=== PATIENT | male | born 1960 | race American Indian/Alaskan Native ===

== ENCOUNTER 2017-04-17 12:57 | Emergency (ER) | payer MEDICARE ==
[2017-04-17 13:05] VITALS: BP 176/115
== END 2017-04-17 20:50 | disposition left against medical advice (07) ==
LOC: ED 12:57
DX: M79.673 Pain in unspecified foot (principal); Z53.21 Procedure and treatment not carried out due to patient leaving prior to being seen by health care provider

== ENCOUNTER 2019-02-01 16:20 | Inpatient (IN) | payer MEDICARE ==
--- NOTE | 2019-02-01 17:24 | Emergency Department Report ---
ED General Adult HPI - General Chief complaint: Altered Mental Status Stated complaint: WEAKNESS Time Seen by Provider: 02/01/19 17:16 Source: family, RN notes reviewed Mode of arrival: Wheelchair Limitations: Language Barrier - History of Present Illness Initial comments: This is a 58-year-old gentleman. This patient is not known to this provider previously. In the past, as per family, he has seen Dr. White, and Dr. Zuñiga her primary care. Reportedly has a history of hypertension, schizophrenia, bipolar, left-sided weakness, history of aneurysm The patient is brought to the hospital by his family for weakness and altered mental status. Most of the history is obtained from the patient's . Unfortunately, she is somewhat of a poor historian. She believes the patient was in his usual state of health yesterday, and is brought in today with a complaint of weakness, nausea vomiting, and not acting right. She is not sure when his last known well time his. First she said 5:30 PM was his last known well time, then she thought it was 5:30 in the morning, and that she thought it was 10:00 last night. She cannot give me a definitive last known well time. Apparently, the patient got up + to go to the bathroom, and may have fallen and hit his head His reports that he typically does not do a lot of walking, and typically hangs out and then and/or watches TV. 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 In the emergency room, the patient is awake and will follow some commands. He is not able to describe exacerbating or relieving factors, or qualitative nature of his symptoms. Apparently, he's been having some nausea and vomiting. -: unknown - Related Data Allergies Allergy/AdvReac Type Severity Reaction Status Date / Time No Known Allergies Allergy Unverified 04/17/17 13:03 ED Review of Systems ROS: Stated complaint: WEAKNESS Other details as noted in HPI Comment: Unobtainable due to pts medical conditions Constitutional: malaise, weakness Gastrointestinal: nausea, vomiting Neurological: weakness, confusion ED Past Medical Hx - Past Medical History Previous Medical History?: Yes Hx Hypertension: Yes Hx Psychiatric Treatment: Yes Additional medical history: schizophrenia/bipolar - Social History Smoking Status: Current Every Day Smoker Substance Use Type: None ED Physical Exam - General Limitations: Language Barrier General appearance: alert - Head Head exam: Present: atraumatic, normocephalic - Eye Eye exam: Present: normal appearance, PERRL, EOMI - ENT ENT exam: Present: normal exam, mucous membranes moist, normal external ear exam - Neck Neck exam: Present: normal inspection, full ROM. Absent: tenderness, meningismus - Respiratory Respiratory exam: Present: normal lung sounds bilaterally. Absent: respiratory distress - Cardiovascular Cardiovascular Exam: Present: normal rhythm, tachycardia, normal heart sounds. Absent: systolic murmur, diastolic murmur, rubs, gallop - GI/Abdominal GI/Abdominal exam: Present: soft. Absent: distended, tenderness, guarding, rigid, pulsatile mass - Rectal Rectal exam: Present: deferred - Extremities Exam Extremities exam: Present: normal inspection, other (2+ pulses noted in the bilateral upper, lower extremities. There is no long bone tenderness. Musculoskeletal compartments are soft. The pelvis is stable.). Absent: pedal edema, calf tenderness - Back Exam Back exam: Present: normal inspection. Absent: tenderness, CVA tenderness (R), CVA tenderness (L), paraspinal tenderness, vertebral tenderness - Neurological Exam Neurological exam: Present: altered, other (the patient is awake. Eyes open spontaneously. He does not smile on examination. He moves his right arm, right leg, left arm, left leg to command. Indicates that sensation is intact to light touch in 4 extremities. Detailed neurologic examination is not able to be completed secondary to physical weakness, altered mental status, and inability to talk.) - Skin Skin exam: Present: warm, dry, intact, normal color. Absent: rash ED Course Vital Signs 02/01/19 02/01/19 02/01/19 16:30 18:02 19:48 Temperature 98.7 F 98.8 F Pulse Rate 112 H 105 H 102 H Respiratory 18 14 Rate Blood Pressure 203/146 226/146 Blood Pressure 204/154 [Left] O2 Sat by Pulse 100 100 Oximetry - Reevaluation(s) Reevaluation #1: 02/01/19 19:50 Discussed with hospital practitioner, Rosalie Kumar, accepts the patient to the medical service. ED Medical Decision Making - Lab Data Result diagrams: 02/01/19 16:38 02/01/19 16:38 Vital Signs 02/01/19 02/01/19 16:30 18:02 Temperature 98.7 F 98.8 F Pulse Rate 112 H 105 H Respiratory 18 14 Rate Blood Pressure 203/146 Blood Pressure 204/154 [Left] O2 Sat by Pulse 100 100 Oximetry Lab Results 02/01/19 02/01/19 02/01/19 Range/Units 16:38 16:38 17:52 WBC 8.2 (4.5-11.0) K/mm3 RBC 4.22 (3.65-5.03) M/mm3 Hgb 12.1 (11.8-15.2) gm/dl Hct 36.4 (35.5-45.6) % MCV 86 (84-94) fl MCH 29 (28-32) pg MCHC 33 (32-34) % RDW 14.2 (13.2-15.2) % Plt Count 134 L (140-440) K/mm3 Lymph % (Auto) 10.0 L (13.4-35.0) % Mccreary % (Auto) 3.5 (0.0-7.3) % Eos % (Auto) 0.0 (0.0-4.3) % Baso % (Auto) 0.4 (0.0-1.8) % Lymph # 0.8 L (1.2-5.4) K/mm3 Mccreary # 0.3 (0.0-0.8) K/mm3 Eos # 0.0 (0.0-0.4) K/mm3 Baso # 0.0 (0.0-0.1) K/mm3 Seg Neutrophils % 86.1 H (40.0-70.0) % Seg Neutrophils # 7.1 (1.8-7.7) K/mm3 Sodium 144 (137-145) mmol/L Potassium 4.7 (3.6-5.0) mmol/L Chloride 107.3 H (98-107) mmol/L Carbon Dioxide 20 L (22-30) mmol/L Anion Gap 21 mmol/L BUN 58 H (9-20) mg/dL Creatinine 7.5 H (0.8-1.5) mg/dL Estimated GFR 9 ml/min BUN/Creatinine Ratio 8 % Glucose 125 H (75-100) mg/dL POC Glucose (70-105) Calcium 9.2 (8.4-10.2) mg/dL Magnesium 2.30 (1.7-2.3) mg/dL Ammonia (25-60) umol/L Total Creatine Kinase 66 (55-170) units/L TSH (0.270-4.200) mlU/mL Salicylates (2.8-20.0) mg/dL Acetaminophen (10.0-30.0) ug/mL Plasma/Serum Alcohol (0-0.07) % 02/01/19 02/01/19 02/01/19 Range/Units 17:52 17:52 17:52 WBC (4.5-11.0) K/mm3 RBC (3.65-5.03) M/mm3 Hgb (11.8-15.2) gm/dl Hct (35.5-45.6) % MCV (84-94) fl MCH (28-32) pg MCHC (32-34) % RDW (13.2-15.2) % Plt Count (140-440) K/mm3 Lymph % (Auto) (13.4-35.0) % Mccreary % (Auto) (0.0-7.3) % Eos % (Auto) (0.0-4.3) % Baso % (Auto) (0.0-1.8) % Lymph # (1.2-5.4) K/mm3 Mccreary # (0.0-0.8) K/mm3 Eos # (0.0-0.4) K/mm3 Baso # (0.0-0.1) K/mm3 Seg Neutrophils % (40.0-70.0) % Seg Neutrophils # (1.8-7.7) K/mm3 Sodium (137-145) mmol/L Potassium (3.6-5.0) mmol/L Chloride (98-107) mmol/L Carbon Dioxide (22-30) mmol/L Anion Gap mmol/L BUN (9-20) mg/dL Creatinine (0.8-1.5) mg/dL Estimated GFR ml/min BUN/Creatinine Ratio % Glucose (75-100) mg/dL POC Glucose (70-105) Calcium (8.4-10.2) mg/dL Magnesium (1.7-2.3) mg/dL Ammonia 34.0 (25-60) umol/L Total Creatine Kinase (55-170) units/L TSH 1.990 (0.270-4.200) mlU/mL Salicylates < 0.3 L (2.8-20.0) mg/dL Acetaminophen (10.0-30.0) ug/mL Plasma/Serum Alcohol (0-0.07) % 02/01/19 02/01/19 02/01/19 Range/Units 17:52 17:52 17:54 WBC (4.5-11.0) K/mm3 RBC (3.65-5.03) M/mm3 Hgb (11.8-15.2) gm/dl Hct (35.5-45.6) % MCV (84-94) fl MCH (28-32) pg MCHC (32-34) % RDW (13.2-15.2) % Plt Count (140-440) K/mm3 Lymph % (Auto) (13.4-35.0) % Mccreary % (Auto) (0.0-7.3) % Eos % (Auto) (0.0-4.3) % Baso % (Auto) (0.0-1.8) % Lymph # (1.2-5.4) K/mm3 Mccreary # (0.0-0.8) K/mm3 Eos # (0.0-0.4) K/mm3 Baso # (0.0-0.1) K/mm3 Seg Neutrophils % (40.0-70.0) % Seg Neutrophils # (1.8-7.7) K/mm3 Sodium (137-145) mmol/L Potassium (3.6-5.0) mmol/L Chloride (98-107) mmol/L Carbon Dioxide (22-30) mmol/L Anion Gap mmol/L BUN (9-20) mg/dL Creatinine (0.8-1.5) mg/dL Estimated GFR ml/min BUN/Creatinine Ratio % Glucose (75-100) mg/dL POC Glucose 97 (70-105) Calcium (8.4-10.2) mg/dL Magnesium (1.7-2.3) mg/dL Ammonia (25-60) umol/L Total Creatine Kinase (55-170) units/L TSH (0.270-4.200) mlU/mL Salicylates (2.8-20.0) mg/dL Acetaminophen < 5.0 L (10.0-30.0) ug/mL Plasma/Serum Alcohol < 0.01 (0-0.07) % - EKG Data -: EKG Interpreted by Me EKG shows normal: sinus rhythm Rate: tachycardia - EKG Data 02/01/19 19:06 There is no prior EKG available for comparison. This is a sinus tachycardia, 115 bpm, there is left ventricular hypertrophy, there is a normal axis, QTC is prolonged, there is motion artifact, EKG is abnormal, it is not consistent with a stemi - Radiology Data Radiology results: pending, report reviewed, image reviewed Noncontrast CT scan brain, cervical spine, abdomen pelvis negative for acute disease - Medical Decision Making Differential diagnosis, including but not limited to: Toxic encephalopathy, metabolic encephalopathy, subacute stroke, pneumonia, urinary tract infection, renal insufficiency, prerenal azotemia, press syndrome Assessment and plan: 58-year-old gentleman with weakness, altered mental status, his family cannot give me his definitive last known well time. He is found to be quite hypertensive, with evidence of renal insufficiency, unknown chronicity. Not a TPA candidate, given last known well time is not known, and hypertension. He is seen in consultation with stroke neurology, Dr. Tyron Boone who agrees with this decision making, and not also recommends that no emergent CT angiogram is indicated at this time, especially given renal insufficiency. Patient will be admitted to the medical service for hypertensive urgency, renal insufficiency, and acute altered mental status. Urinalysis is pending at this time. IV fluids and hydralazine ordered. Contacted nephrology on-call, Dr. Santamaria, who will follow in consultation. The patient is currently awake, follows commands, protecting his airway, there is no midline cervical spine tenderness. In addition, family communicated to examining staff that he has chronic left- sided deficit secondary to an old aneurysmal insult. Critical care attestation.: If time is entered above; I have spent that time in minutes in the direct care of this critically ill patient, excluding procedure time. ED Disposition Clinical Impression: Acute encephalopathy, Hypertensive urgency, malignant Renal failure Qualifiers: Renal failure chronicity: unspecified chronicity Qualified Code(s): N19 - Unspecified kidney failure Disposition: OP ADMIT IP TO THIS HOSP Is pt being admited?: Yes Does the pt Need Aspirin: Yes Condition: Serious
--- NOTE | 2019-02-01 17:41 | Cat Scan Report ---
NONENHANCED CT SCAN OF THE HEAD: INDICATION / CLINICAL INFORMATION: 58 years Male; AMS,HEAD INJURY R/T FALL. TECHNIQUE: Routine CT head without contrast. All CT scans at this location are performed using CT dos e reduction for ALARA by means of automated exposure control. COMPARISON: None. FINDINGS: BRAIN / INTRACRANIAL CONTENTS: Right frontal craniotomy with aneurysm clip in the right side of circl e of Marie is seen. Extraventricular drainage shunt is entering via right posterior parietal tam hole. Tip of this shunt is against septum pellucidum. Note the lateral ventricles and third ventricle are slitlike. I do not see subdural effusions. No previous imaging studies are available for comparison. Right frontal craniotomy flap is 2 mm more medially. . No recurrent subarachnoid hemorrhage, mass effect, midline shift, hydrocephalus, or acute, large te rritorial infarct. No chronic infarct or focal atrophy. Normal brain volume and ventricular/sulcal si ze for age. No significant white matter abnormality. CRANIOCERVICAL JUNCTION: No significant abnormality. ORBITS: No significant abnormality of visualized orbits. SINUSES / MASTOIDS: No significant abnormality of the visualized paranasal sinuses or mastoid air elbert ls. ADDITIONAL FINDINGS: Calcification is seen in the supraclinoid internal carotid arteries bilaterally and in the basilar artery. IMPRESSION: Any laminotomy and aneurysm clip on the right side Extraventricular drainage shunt in place Please note lateral ventricles and third ventricle are slitlike; no subdural effusion Signer Name: Geronimo Ott MD Signed: 02/01/2019 5:37 PM Workstation Name: [id number]
[2019-02-01 17:42] LABS: Basophils % (Auto) 0.4 % (0.0-1.8); Hematocrit 36.4 % (35.5-45.6); Hemoglobin 12.1 gm/dl (11.8-15.2); Lymphocytes # (Auto) 0.8 K/mm3 (1.2-5.4); Mean Corpuscular HGB Conc 33 % (32-34); Mean Corpuscular Volume 86 fl (84-94); Monocytes # (Auto) 0.3 K/mm3 (0.0-0.8); Monocytes % (Auto) 3.5 % (0.0-7.3); Platelet Count 134 K/mm3 (140-440); Red Blood Count 4.22 M/mm3 (3.65-5.03); Red Cell Distribution Width 14.2 % (13.2-15.2)
[2019-02-01] MEDS ORDERED: SODIUM CHLORIDE 0.9% 500 ML 500 ML IV ONE (17:43)
[2019-02-01 17:44] LABS: Calcium 9.2 mg/dL (8.4-10.2)
--- NOTE | 2019-02-01 17:51 | Cat Scan Report ---
CT cervical spine wo con INDICATION / CLINICAL INFORMATION: 58 years Male; fall ams cannot cleart c spine. TECHNIQUE: Axial CT images of the cervical spine were obtained. Sagittal and coronal reformatted images were pr oduced. All CT scans at this location are performed using CT dose reduction for ALARA by means of aut omated exposure control. COMPARISON: None available. FINDINGS: POST-SURGICAL CHANGES: None. ALIGNMENT: There is mild reversal the cervical lordosis. However, there is no significant spondylolis thesis. VERTEBRAE: There are multilevel degenerative endplate changes involving the cervical spine from C3-4 to C6-7. However, there is no definitive CT ends of acute fracture involving the cervical spine. The mild rotation at C1-2 is likely a positional. INTRAVERTEBRAL DISCS: The right uncovertebral and facet joint hypertrophy at C2-3 appears result in m oderate right neural foraminal narrowing at. There is marked left and moderate to right neural from n arrowing at C3-4. The spondylosis effaces the ventral subarachnoid space. The central spondylosis at C4-5 also appears to efface the ventral subarachnoid space at. More broad- based spondylosis is noted at C5-6 at. There is marked right neural foraminal narrowing. There is mar ked right and moderate left foraminal narrowing at C6-7. PARASPINAL SOFT TISSUES: No prevertebral soft tissue fluid collections are identified. There is heter ogeneous enlargement of the inferior left lobe of the thyroid gland which is nonspecific though may r eflect goiter; correlation would be needed. ADDITIONAL FINDINGS: There is a portion of a shunt catheter coursing within the superficial right nec k soft tissues at. IMPRESSION: 1. There is no CT evidence of acute fracture involving the cervical spine. 2. There are multilevel degenerative changes as detailed above. Signer Name: Kendrick North MD Signed: 02/01/2019 5:47 PM Workstation Name: [id number]
--- NOTE | 2019-02-01 17:52 | Cat Scan Report ---
CT of the abdomen and pelvis without contrast INDICATION: Nausea and vomiting COMPARISON: None FINDINGS: Lung bases are clear. The liver, spleen, pancreas and adrenal glands are all grossly normal . There are multiple low-density renal lesions which are nonspecific but may be cysts. I could not ex clude solid mass especially on the left. No definite gallbladder or biliary tree abnormality. No flui d or adenopathy in the upper abdomen. Caval filter is in place as well and is ventriculoperitoneal sh unt catheter. CT of the pelvis shows minimal cul-de-sac fluid. No diverticulosis or diverticulitis. No hernia or garcía wel obstruction. There is slight ectasia of the infrarenal aorta without focal aneurysm. Appendix is seen and is normal. No significant skeletal lesion. IMPRESSION: Indeterminant renal masses. No acute abnormality. Automated exposure control was utilized to diminish radiation dose. Signer Name: Chadwick Hinojosa MD Signed: 02/01/2019 5:48 PM Workstation Name: [id number]
[2019-02-01] MEDS ORDERED: SODIUM CHLORIDE 0.9% 1000 ML 2,000 ML IV ONE (18:03)
[2019-02-01] MEDS ORDERED: hydrALAZINE 20 MG/1 ML INJ IV ONE ×2 (19:02→20:45)
[2019-02-01] MEDS ORDERED: ASPIRIN 81 MG TAB CHEW PO ONE (19:09)
[2019-02-01] MEDS ORDERED: ONDANSETRON 4 MG/2 ML INJ IV PRN (20:23)
--- NOTE | 2019-02-01 20:44 | Consultation ---
History of Present Illness Consult date: 02/01/19 Requesting physician: HAILEY LAMB Reason for Consult: Stroke Alert Chief complaint: AMS and Nausea/Vomitting History of present illness: [facility] TeleStroke Metrics: LKW: 2200 last night Door Time: 1620 [facility] Contacted: 1743 [facility] at Bedside: 1749 NIHSS: 1757 Decision on Alteplase: Not to give as his last known well time was last night. Interventional Candidate: Not a candidate as his symptoms are not consistent with a large vessel proximal occlusion. Chief Complaint: Altered mental status and nausea/vomiting HPI: Asked to see this patient in emergent telemedicine consultation utilizing interactive audio and video technologies. Consultation was performed with assistance of ancillary / medical staff at bedside. Verbal consent to perform the examination with telemedicine was obtained. Patient agreed to proceed with the consultation for acute stroke protocol. 58-year-old right-handed -[place] male who was brought to the emergency room by his family for altered mental status and nausea and vomiting. Patient's and daughter are at bedside. reports that in 1994, the patient had what sounds like a right subarachnoid hemorrhage/intracranial hemorrhage and had right frontal craniotomy with right aneurysm clipping. He also has evidence of a right ART MODEL shunt. Since that time, he has had some chronic left-sided weakness. He has never had any seizures. Patient is still an active smoker. At baseline, the patient is able to ambulate on his own. states that she first started noticing symptoms Wednesday evening around 5 PM. When she got home, the patient had some nausea and vomiting and was not eating very well. He then went to sleep and then woke up around 10 PM. This was the last time the patient was able to ambulate on his own to the bathroom. Then around 4 AM this morning, the patient was gagging and was having nausea and vomiting again. He had a fall this morning. The patient's daughter came over. Since this morning, the patient has had intermittent episodes of nausea and vomiting which caused him to be confused and incoherent. Daughter states that he would have a glazed look over his face and sometimes would shake all over. Patient also has significant weakness to the point that he is unable to walk on his own or feed himself. states that the patient would live in this state for about 20 to 30 minutes. Then he would have moments where he was back to normal. Patient has never done this before. PMH: Hypertension, schizophrenia and bipolar disorder, and prior right subarachnoid hemorrhage status post right frontal craniotomy and right aneurysm clipping with chronic left hemiparesis in 1994 SOC: Positive for tobacco abuse. Negative x2. Patient was an alcoholic in the past. He is . FMH: Negative for stroke. ROS: 13 point review of systems were reviewed with the patient, and are all negative with the exception of the aforementioned in the history of present illness. VS: Temperature is 98.7 F, pulse 112, respiration 18, blood pressure 203/146, oxygen saturation 100% Exam: Patient is in no apparent distress. Patient appears as stated age. No obvious acute respiratory or cardiac distress. Patient is well groomed and well-nourished. 1a- LOC: Keenly responsive - 0 1b- LOC questions: Answers both questions correctly - 0 1c- LOC commands- Performs both tasks correctly- 0 2- Gaze: Normal; no gaze paresis or gaze deviation - 0 3- Visual Lance: normal, no Visual field deficit - 0 4- Facial movements: left facial palsy - 2 5- Upper limb motor left arm drift - 1 6- Lower limb motor left leg drift - 1 7- Limb Coordination: absent ataxia - 0 8- Sensory: no sensory loss - 0 9- Language - No aphasia - 0 10- Speech - Mild dysarthria - 1 11- Neglect / Extinction - none found - 0 NIHSS score: 5 Diagnostic Data: CT of the head showed no acute intracranial process. Patient is status post right frontal craniotomy with aneurysm clipping and right ART MODEL shunting. WBC 8.2, hemoglobin 12.1, platelets 134, sodium 144, potassium 4.7, BUN 58, creatinine 7.5, blood glucose 125 Medical Data Reviewed: 1.Data?reviewed include clinical labs, radiology,?and medical tests; 2.Tests?results discussed w/performing or interpreting physician; 3.Obtaining/reviewing old medical records; 4.Obtaining?case history from another source; 5.Independent?review of image, tracing, or specimen. Medical Decision Making: - Extensive number of diagnosis or management options are considered below. - Extensive amount of complex data reviewed. - High risk of complication and/or morbidity or mortality are associated with differential diagnostic considerations below. - There may be?uncertain?outcome and increased probability of prolonged functional impairment or high probability of severe prolonged functional impairment associated with some of these differential diagnosis. Assessment: 1. Altered mental status 2. Nausea and vomiting 3. History of prior right subarachnoid hemorrhage status post right aneurysm clipping with chronic left hemiparesis 4. Tobacco abuse 5. Hypertension 6. Schizophrenia and bipolar disorder 7. Acute kidney injury Recommendations: Patient can be admitted to the hospital for further work-up of his symptoms. Metabolic and infectious work-up per primary team. GI work-up per primary team. Acute kidney injury treatment per primary team. If right aneurysm clip is MRI compatible, they can check MRI brain without contrast to rule out any acute intracranial process. Certainly, if cannot do any MRI imaging, then can repeat a head CT tomorrow morn ing to see if there is any new evolving cerebral ischemia. No need for CTA head and neck at this time due to his acute kidney injury. Can check an EEG to rule out subclinical seizures given the intermittent nature of his symptoms. Continue supportive care. Plan of care was discussed with the patient's family. Thank you for allowing [facility] to participate in the care of your patient. Please call me, Dr. Boone, with any questions at [phone]. Case discussed with the ER staff and Dr. Lamb. Critical Care notation: I was called to see this critical patient emergently. I personally evaluated this critical patient for acute stroke evaluation, and determining their eligibility for IV Alteplase and interventional therapies. I have spent approximately 11 minutes with the patient, including time at bedside, time discussing the case with other physicians, reviewing plan of care, and time independently reviewing the records and scans. Medications and Allergies Allergies Allergy/AdvReac Type Severity Reaction Status Date / Time No Known Allergies Allergy Unverified 04/17/17 13:03 Active Meds: Active Medications Acetaminophen (Tylenol) 650 mg PO Q4H PRN PRN Reason: Pain MILD(1-3)/Fever >100.5/QUAN Amlodipine Besylate (Amlodipine) 10 mg PO QDAY ENOC Docusate Sodium (Colace) 100 mg PO BID ENOC Hydralazine HCl (Apresoline) 10 mg IV Q4HR PRN PRN Reason: Blood Pressure Sodium Chloride (Nacl 0.9% 1000 Ml) 1,000 mls @ 75 mls/hr IV DIRECT ENOC Nicotine (Habitrol) 14 mg TD QDAY ENOC Ondansetron HCl (Zofran) 4 mg IV Q8H PRN PRN Reason: Nausea And Vomiting Sodium Chloride (Sodium Chloride Flush Syringe 10 Ml) 10 ml IV BID ENOC Sodium Chloride (Sodium Chloride Flush Syringe 10 Ml) 10 ml IV PRN PRN PRN Reason: LINE FLUSH Physical Examination - Vital Signs Vital Signs: Vital Signs Temp Pulse Resp BP Pulse Ox 98.7 F 112 H 18 203/146 100 02/01/19 16:30 02/01/19 16:30 02/01/19 16:30 02/01/19 16:30 02/01/19 16:30 Results - Laboratory Findings CBC and BMP: 02/01/19 16:38 02/01/19 16:38 Abnormal Lab Findings: Abnormal Labs 02/01/19 02/01/19 02/01/19 16:38 16:38 17:52 Plt Count 134 L Lymph % (Auto) 10.0 L Lymph # 0.8 L Seg Neutrophils % 86.1 H Chloride 107.3 H Carbon Dioxide 20 L BUN 58 H Creatinine 7.5 H Glucose 125 H Salicylates < 0.3 L Acetaminophen 02/01/19 17:52 Plt Count Lymph % (Auto) Lymph # Seg Neutrophils % Chloride Carbon Dioxide BUN Creatinine Glucose Salicylates Acetaminophen < 5.0 L
[2019-02-01] MEDS ORDERED: hydrALAZINE 20 MG/1 ML INJ ONE (20:50)
[2019-02-01 21:01] LABS: Bacteria,Urine 1+ /HPF (Negative); Bilirubin,Urine NEG (Negative); Blood,Urine SM (Negative); Color,Urine Yellow (Yellow); Mucus,Urine FEW /HPF; Protein,Urine >500 mg/dL (Negative); Urobilinogen,Urine < 2.0 mg/dL (<2.0)
--- NOTE | 2019-02-01 21:01 | History and Physical Report ---
<VENANCIO MCBRIDE - Last Filed: 02/01/19 21:41> History of Present Illness Date of examination: 02/01/19 Date of admission: 02/01/19 19:51 Chief complaint: AMS, N/V History of present illness: 58-year-old -Tog[place] male with history of hypertension, schizophrenia, bipolar, subarachnoid hemorrhage status post right frontal craniotomy, right aneurysm clip in, and chronic left-sided hemiparesis who presents to [facility] w ith complaints of generalized weakness, nausea, vomiting and AMS for the past day. Of note, pt is non-verbal and unable to provide history. History is provided by , who is a poor historian and review of medical records. According to pt's pt started experiencing n/v, and intermittent periods of unresponsiveness (lasting approximately <10 minutes) sometime yesterday afternoon. Up until around 10pm last night pt was able to independently ambulate (at baseline has left sided weakness) and feed him self. Early this morning pt experienced a fall while trying to ambulate. Throughout the day he continues to have episodes of nausea and emesis. Family complains that pt displayed episodes of a gazing stare lasting 20-30 minutes. It is not clear as to whether there was actual jerking/body movements associated with gazing stare. At the time of my examination pt is non-verbal, but able to follow some simple commands. Past History Past Medical History: hypertension, other (schizophrenia, bipolar, subarachnoid hemorrhage status post right frontal craniotomy, right aneurysm clip) Past Surgical History: Other (right frontal craniotomy, right aneurysm clipping (1994)) Social history: , lives with family, smoking Family history: no significant family history Medications and Allergies Allergies Allergy/AdvReac Type Severity Reaction Status Date / Time No Known Allergies Allergy Unverified 04/17/17 13:03 Active Meds: Active Medications Acetaminophen (Tylenol) 650 mg PO Q4H PRN PRN Reason: Pain MILD(1-3)/Fever >100.5/QUAN Amlodipine Besylate (Amlodipine) 10 mg PO QDAY ENOC Docusate Sodium (Colace) 100 mg PO BID ENOC Hydralazine HCl (Apresoline) 10 mg IV Q4HR PRN PRN Reason: Blood Pressure Sodium Chloride (Nacl 0.9% 1000 Ml) 1,000 mls @ 75 mls/hr IV DIRECT ENOC Nicotine (Habitrol) 14 mg TD QDAY ENOC Ondansetron HCl (Zofran) 4 mg IV Q8H PRN PRN Reason: Nausea And Vomiting Sodium Chloride (Sodium Chloride Flush Syringe 10 Ml) 10 ml IV BID ENOC Sodium Chloride (Sodium Chloride Flush Syringe 10 Ml) 10 ml IV PRN PRN PRN Reason: LINE FLUSH Review of Systems All systems: negative Exam - Physical Exam Narrative exam: Physical exam General appearance: Present: No acute distress, awake and alert, unable to assess orientation, nonverbal, chronically ill-appearing, adult male - EENT Eyes: Present: PERRL, EOM intact ENT: hearing intact, no dentition - Neck Neck: Present: supple, normal ROM - Respiratory Respiratory effort: Non-labored Respiratory: Clear throughout - Cardiovascular Heart rate: 115 (bpm) Rhythm: Sinus tachycardia Heart Sounds: Present: S1 & S2. Absent: rub, click - Extremities Extremities: no ischemia, pulses intact, - Peripheral Assessment Peripheral Pulses: within normal limits - Abdominal General gastrointestinal: soft, non-tender, normal bowel sounds - Integumentary Integumentary: Present: warm, dry - Musculoskeletal Musculoskeletal: chronic sided hemiparesis, generalized weakness -Neurological Neurological: CN II-XII intact - Psychiatric Psychiatric: Flat affect, unable to fully assess - Constitutional Vitals: Temp Pulse Resp BP Pulse Ox 98.8 F 118 H 20 217/135 100 02/01/19 18:02 02/01/19 20:51 02/01/19 20:46 02/01/19 20:51 02/01/19 20:46 Results - Labs CBC & Chem 7: 02/01/19 16:38 02/01/19 16:38 Labs: Laboratory Last Values WBC 8.2 K/mm3 (4.5-11.0) 02/01/19 16:38 RBC 4.22 M/mm3 (3.65-5.03) 02/01/19 16:38 Hgb 12.1 gm/dl (11.8-15.2) 02/01/19 16:38 Hct 36.4 % (35.5-45.6) 02/01/19 16:38 MCV 86 fl (84-94) 02/01/19 16:38 MCH 29 pg (28-32) 02/01/19 16:38 MCHC 33 % (32-34) 02/01/19 16:38 RDW 14.2 % (13.2-15.2) 02/01/19 16:38 Plt Count 134 K/mm3 (140-440) L 02/01/19 16:38 Lymph % (Auto) 10.0 % (13.4-35.0) L 02/01/19 16:38 [place] % (Auto) 3.5 % (0.0-7.3) 02/01/19 16:38 Eos % (Auto) 0.0 % (0.0-4.3) 02/01/19 16:38 Baso % (Auto) 0.4 % (0.0-1.8) 02/01/19 16:38 Lymph # 0.8 K/mm3 (1.2-5.4) L 02/01/19 16:38 [place] # 0.3 K/mm3 (0.0-0.8) 02/01/19 16:38 Eos # 0.0 K/mm3 (0.0-0.4) 02/01/19 16:38 Baso # 0.0 K/mm3 (0.0-0.1) 02/01/19 16:38 Seg Neutrophils % 86.1 % (40.0-70.0) H 02/01/19 16:38 Seg Neutrophils # 7.1 K/mm3 (1.8-7.7) 02/01/19 16:38 Sodium 144 mmol/L (137-145) 02/01/19 16:38 Potassium 4.7 mmol/L (3.6-5.0) 02/01/19 16:38 Chloride 107.3 mmol/L (98-107) H 02/01/19 16:38 Carbon Dioxide 20 mmol/L (22-30) L 02/01/19 16:38 Anion Gap 21 mmol/L 02/01/19 16:38 BUN 58 mg/dL (9-20) H 02/01/19 16:38 Creatinine 7.5 mg/dL (0.8-1.5) H 02/01/19 16:38 Estimated GFR 9 ml/min 02/01/19 16:38 BUN/Creatinine Ratio 8 % 02/01/19 16:38 Glucose 125 mg/dL (75-100) H 02/01/19 16:38 POC Glucose 97 (70-105) 02/01/19 17:54 Calcium 9.2 mg/dL (8.4-10.2) 02/01/19 16:38 Magnesium 2.30 mg/dL (1.7-2.3) 02/01/19 17:52 Ammonia 34.0 umol/L (25-60) 02/01/19 17:52 Total Creatine Kinase 66 units/L (55-170) 02/01/19 17:52 TSH 1.990 mlU/mL (0.270-4.200) 02/01/19 17:52 Salicylates < 0.3 mg/dL (2.8-20.0) L 02/01/19 17:52 Acetaminophen < 5.0 ug/mL (10.0-30.0) L 02/01/19 17:52 Plasma/Serum Alcohol < 0.01 % (0-0.07) 02/01/19 17:52 - Imaging and Cardiology Imaging and Cardiology: CT Head/Brain: FINDINGS: BRAIN / INTRACRANIAL CONTENTS: Right frontal craniotomy with aneurysm clip in the right side of [place] is seen. Extraventricular drainage shunt is entering via right posterior parietal tam hole. Tip of this shunt is against septum pellucidum. Note the lateral ventricles and third ventricle are slitlike. I do not see subdural effusions. No previous imaging studies are available for comparison. Right frontal craniotomy flap is 2 mm more medially. No recurrent subarachnoid hemorrhage, mass effect, midline shift, hydrocephalus, or acute, large territorial infarct. No chronic infarct or focal atrophy. Normal brain volume and ventricular/sulcal size for age. No significant white matter abnormality. CRANIOCERVICAL JUNCTION: No significant abnormality. ORBITS: No significant abnormality of visualized orbits. SINUSES / MASTOIDS: No significant abnormality of the visualized paranasal s inuses or mastoid air cells. ADDITIONAL FINDINGS: Calcification is seen in the supraclinoid internal carotid arteries bilaterally and in the basilar artery. IMPRESSION: Any laminotomy and aneurysm clip on the right side Extraventricular drainage shunt in place Please note lateral ventricles and third ventricle are slitlike; no subdural effusion. CT Abdomen/Pelvis: INDICATION: Nausea and vomiting COMPARISON: None FINDINGS: Lung bases are clear. The liver, spleen, pancreas and adrenal glands are all grossly normal. There are multiple low-density renal lesions which are nonspecific but may be cysts. I could not exclude solid mass especially on the left. No definite gallbladder or biliary tree abnormality. No fluid or adenopathy in the upper abdomen. Caval filter is in place as well and is ventriculoperitoneal shunt catheter. CT of the pelvis shows minimal cul-de-sac fluid. No diverticulosis or diverticulitis. No hernia or bowel obstruction. There is slight ectasia of the infrarenal aorta without focal aneurysm. Appendix is seen and is normal. No significant skeletal lesion. IMPRESSION: Indeterminant renal masses. No acute abnormality. Automated exposure control was utilized to diminish radiation dose. CT Cervical Spine: FINDINGS: POST-SURGICAL CHANGES: None. ALIGNMENT: There is mild reversal the cervical lordosis. However, there is no significant spondylolisthesis. VERTEBRAE: There are multilevel degenerative endplate changes involving the cervical spine from C3- 4 to C6-7. However, there is no definitive CT ends of acute fracture involving the cervical spine. The mild rotation at C1-2 is likely a positional. INTRAVERTEBRAL DISCS: The right uncovertebral and facet joint hypertrophy at C2- 3 appears result in moderate right neural foraminal narrowing at. There is marked left and moderate to right neural from narrowing at C3-4. The spondylosis effaces the ventral subarachnoid space. The central spondylosis at C4-5 also appears to efface the ventral subarachnoid space at. More broad-based spondylosis is noted at C5-6 at. There is marked right neural foraminal narrowing. There is marked right and moderate left foraminal narrowing at C6-7. PARASPINAL SOFT TISSUES: No prevertebral soft tissue fluid collections are rhett ntified. There is heterogeneous enlargement of the inferior left lobe of the thyroid gland which is nonspecific though may reflect goiter; correlation would be needed. ADDITIONAL FINDINGS: There is a portion of a shunt catheter coursing within the superficial right neck soft tissues at. IMPRESSION: 1. There is no CT evidence of acute fracture involving the cervical spine. 2. There are multilevel degenerative changes as detailed above. Assessment and Plan Assessment and plan: 58-year-old -[place]og[place]ese male with history of hypertension, schizophrenia, bipolar, subarachnoid hemorrhage status post right frontal craniotomy, right aneurysm clip in, and chronic left-sided hemiparesis who presents to [facility] ED with complaints of generalized weakness, nausea, vomiting and AMS for the past day. Hypertensive urgency -BP on admission 204/154 -Hx Hypertension -Continue to monitor BP -Start po Norvasc and hydralazine -Resume home antihypertensive meds to optimize BP once or medication reconciliation has been updated -IV antihypertensive when necessary Acute encephalopathy -CT head negative -Afebrile, no leukocytosis -Neuro checks -Neurology consulted MIKEL -Cr on admission 7.5 -CT abdomen and pelvis showed Indeterminant renal masses -Hydrate with IVF -Avoid nephrotoxic agents -Renal dose all meds -Nephrology consulted R/O Focal Seizures -Evaluated by Tele-neurology; recommendations appreciated -Per Tele-neurology may want to consider MRI brain or repeat CT Head in am -Received IV Keppra in ED -Hold Bacolfen d/t renal function -EEG pending -Hx Right subarachnoid hemorrhage, status post right frontal craniotomy -Hx aneurysm, status post clipping -Continue supportive care -Neurology consulted Tobacco abuse -Current every day smoker -Counseled for cessation -Nicotine patch when necessary History of bipolar History of schizophrenia -Mental Health consult pending DVT PPX -SCD's Advance Directives: No VTE prophylaxis?: Mechanical Plan of care discussed with patient/family: Yes <JAVED POZO R - Last Filed: 02/01/19 23:57> History of Present Illness Date of admission: 02/01/19 19:51 Medications and Allergies Active Meds: Active Medications Acetaminophen (Tylenol) 650 mg PO Q4H PRN PRN Reason: Pain MILD(1-3)/Fever >100.5/QUAN Amlodipine Besylate (Amlodipine) 10 mg PO QDAY [facility] Last Admin: 02/01/19 21:36 Dose: 10 mg Documented by: Carvedilol (Coreg) 6.25 mg PO BID [facility] Last Admin: 02/01/19 21:37 Dose: 6.25 mg Documented by: Docusate Sodium (Colace) 100 mg PO BID [facility] Last Admin: 02/01/19 21:37 Dose: 100 mg Documented by: Hydralazine HCl (Apresoline) 10 mg IV Q4HR PRN PRN Reason: Blood Pressure Hydralazine HCl (Apresoline) 100 mg PO TID [facility] Last Admin: 02/01/19 21:36 Dose: 100 mg Documented by: Sodium Chloride (Nacl 0.9% 1000 Ml) 1,000 mls @ 75 mls/hr IV DIRECT ENOC Nicardipine HCl 50 mg/ Sodium (Chloride) 250 mls @ 25 mls/hr IV TITR ENOC; Jorge Alberto col Last Admin: 02/01/19 22:00 Dose: 5 mg/hr, 25 mls/hr Documented by: Nicotine (Habitrol) 14 mg TD QDAY ENOC Ondansetron HCl (Zofran) 4 mg IV Q8H PRN PRN Reason: Nausea And Vomiting Sodium Chloride (Sodium Chloride Flush Syringe 10 Ml) 10 ml IV BID ENOC Last Admin: 02/01/19 22:00 Dose: 10 ml Documented by: Sodium Chloride (Sodium Chloride Flush Syringe 10 Ml) 10 ml IV PRN PRN PRN Reason: LINE FLUSH Exam - Constitutional Vitals: Temp Pulse Resp BP Pulse Ox 98.8 F 121 H 20 202/117 100 02/01/19 18:02 02/01/19 21:37 02/01/19 20:46 02/01/19 21:37 02/01/19 20:46 Results - Labs CBC & Chem 7: 02/01/19 16:38 02/01/19 16:38 Labs: Laboratory Last Values WBC 8.2 K/mm3 (4.5-11.0) 02/01/19 16:38 RBC 4.22 M/mm3 (3.65-5.03) 02/01/19 16:38 Hgb 12.1 gm/dl (11.8-15.2) 02/01/19 16:38 Hct 36.4 % (35.5-45.6) 02/01/19 16:38 MCV 86 fl (84-94) 02/01/19 16:38 MCH 29 pg (28-32) 02/01/19 16:38 MCHC 33 % (32-34) 02/01/19 16:38 RDW 14.2 % (13.2-15.2) 02/01/19 16:38 Plt Count 134 K/mm3 (140-440) L 02/01/19 16:38 Lymph % (Auto) 10.0 % (13.4-35.0) L 02/01/19 16:38 [place] % (Auto) 3.5 % (0.0-7.3) 02/01/19 16:38 Eos % (Auto) 0.0 % (0.0-4.3) 02/01/19 16:38 Baso % (Auto) 0.4 % (0.0-1.8) 02/01/19 16:38 Lymph # 0.8 K/mm3 (1.2-5.4) L 02/01/19 16:38 [place] # 0.3 K/mm3 (0.0-0.8) 02/01/19 16:38 Eos # 0.0 K/mm3 (0.0-0.4) 02/01/19 16:38 Baso # 0.0 K/mm3 (0.0-0.1) 02/01/19 16:38 Seg Neutrophils % 86.1 % (40.0-70.0) H 02/01/19 16:38 Seg Neutrophils # 7.1 K/mm3 (1.8-7.7) 02/01/19 16:38 Sodium 144 mmol/L (137-145) 02/01/19 16:38 Potassium 4.7 mmol/L (3.6-5.0) 02/01/19 16:38 Chloride 107.3 mmol/L (98-107) H 02/01/19 16:38 Carbon Dioxide 20 mmol/L (22-30) L 02/01/19 16:38 Anion Gap 21 mmol/L 02/01/19 16:38 BUN 58 mg/dL (9-20) H 02/01/19 16:38 Creatinine 7.5 mg/dL (0.8-1.5) H 02/01/19 16:38 Estimated GFR 9 ml/min 02/01/19 16:38 BUN/Creatinine Ratio 8 % 02/01/19 16:38 Glucose 125 mg/dL (75-100) H 02/01/19 16:38 POC Glucose 97 (70-105) 02/01/19 17:54 Calcium 9.2 mg/dL (8.4-10.2) 02/01/19 16:38 Magnesium 2.30 mg/dL (1.7-2.3) 02/01/19 17:52 Ammonia 34.0 umol/L (25-60) 02/01/19 17:52 Total Creatine Kinase 66 units/L (55-170) 02/01/19 17:52 TSH 1.990 mlU/mL (0.270-4.200) 02/01/19 17:52 Urine Color Yellow (Yellow) 02/01/19 20:45 Urine Turbidity Slightly-cloudy (Clear) 02/01/19 20:45 Urine pH 5.0 (5.0-7.0) 02/01/19 20:45 Ur Specific [place] 1.013 (1.003-1.030) 02/01/19 20:45 Urine Protein >500 mg/dL (Negative) 02/01/19 20:45 Urine Glucose (UA) Neg mg/dL (Negative) 02/01/19 20:45 Urine Ketones Neg mg/dL (Negative) 02/01/19 20:45 Urine Blood Sm (Negative) 02/01/19 20:45 Urine Nitrite Neg (Negative) 02/01/19 20:45 Urine Bilirubin Neg (Negative) 02/01/19 20:45 Urine Urobilinogen < 2.0 mg/dL (<2.0) 02/01/19 20:45 Ur Leukocyte Esterase Neg (Negative) 02/01/19 20:45 Urine WBC (Auto) 2.0 /HPF (0.0-6.0) 02/01/19 20:45 Urine RBC (Auto) 3.0 /HPF (0.0-6.0) 02/01/19 20:45 U Epithel Cells (Auto) 1.0 /HPF (0-13.0) 02/01/19 20:45 Urine Bacteria (Auto) 1+ /HPF (Negative) 02/01/19 20:45 Urine Mucus Few /HPF 02/01/19 20:45 Urine Yeast (Budding) 1+ /HPF 02/01/19 20:45 Salicylates < 0.3 mg/dL (2.8-20.0) L 02/01/19 17:52 Acetaminophen < 5.0 ug/mL (10.0-30.0) L 02/01/19 17:52 Plasma/Serum Alcohol < 0.01 % (0-0.07) 02/01/19 17:52 Assessment and Plan Assessment and plan: Patient seen and examined Agree with [employer] history, physical exam and A/P will place him on cardine drip, admit ICU, follow neurology recommendation
[2019-02-01] MEDS ORDERED: amLODIPine 10 MG TAB ONE (21:28)
[2019-02-01] MEDS ORDERED: DOCUSATE SODIUM 100 MG CAP ONE (21:29)
[2019-02-01] MEDS: amLODIPine 10 MG TAB PO SCH (21:36)
[2019-02-01] MEDS: hydrALAZINE 100 MG TAB PO SCH (21:36)
[2019-02-01] MEDS: DOCUSATE SODIUM 100 MG CAP PO SCH (21:37)
[2019-02-01] MEDS: carvediloL 6.25 MG TAB PO SCH ×2 (21:37)
[2019-02-01] MEDS ORDERED: niCARdipine 50 MG in SODIUM CHLORIDE 0.9% 250ML 230 ML IV SCH (22:00)
[2019-02-01] MEDS ORDERED: dilTIAZem 25 MG/5 ML INJ IV ONE (23:59)
[2019-02-02] MEDS: SODIUM CHLORIDE 0.9% 1000 ML 1,000 ML IV SCH ×2 (00:05→15:29)
[2019-02-02] MEDS ORDERED: SODIUM CHLORIDE 0.9% 1000 ML 1,000 ML ONE (00:05)
[2019-02-02] MEDS ORDERED: dilTIAZem/D5W 100 MG/100 ML BAG IV SCH (01:00)
[2019-02-02 06:10] LABS: Basophils % (Auto) 0.4 % (0.0-1.8); Eosinophils % (Auto) 0.5 % (0.0-4.3); Hematocrit 35.4 % (35.5-45.6); Hemoglobin 11.4 gm/dl (11.8-15.2); Lymphocytes # (Auto) 1.8 K/mm3 (1.2-5.4); Lymphocytes % (Auto) 18.2 % (13.4-35.0); Mean Corpuscular HGB Conc 32 % (32-34); Mean Corpuscular Volume 86 fl (84-94); Monocytes # (Auto) 0.7 K/mm3 (0.0-0.8); Monocytes % (Auto) 7.1 % (0.0-7.3); Platelet Count 113 K/mm3 (140-440); Red Cell Distribution Width 14.1 % (13.2-15.2)
[2019-02-02 06:45] LABS: Calcium 8.9 mg/dL (8.4-10.2)
[2019-02-02] MEDS ORDERED: hydrALAZINE 100 MG TAB ONE (08:03)
[2019-02-02] MEDS: hydrALAZINE 100 MG TAB PO SCH ×2 (08:04→15:29)
[2019-02-02] MEDS: carvediloL 6.25 MG TAB PO SCH (09:29)
[2019-02-02] MEDS ORDERED: carvediloL 6.25 MG TAB ONE (09:30)
[2019-02-02] MEDS ORDERED: amLODIPine 10 MG TAB ONE (10:14)
[2019-02-02] MEDS ORDERED: DOCUSATE SODIUM 100 MG CAP ONE (10:14)
[2019-02-02] MEDS: amLODIPine 10 MG TAB PO SCH (10:21)
[2019-02-02] MEDS: DOCUSATE SODIUM 100 MG CAP PO SCH (10:22)
[2019-02-02] MEDS: NICOTINE 14 MG/24 HR PATCH TD SCH (10:22)
--- NOTE | 2019-02-02 16:12 | Progress Note ---
Assessment and Plan Assessment and plan: 58-year-old -[place] male with history of hypertension, schizophrenia, bipolar, subarachnoid hemorrhage status post right frontal craniotomy, right aneurysm clip in, and chronic left-sided hemiparesis who [facility] with complaints of generalized weakness, nausea, vomiting and AMS for the past day. Hypertensive urgency -BP on admission 204/154 -Hx Hypertension -BP uncontrolled. Increase Hydralazine to 100mg po tid may add Clonidine if BP remains uncontrolled. Acute encephalopathy -CT head negative -Afebrile, no leukocytosis -Neuro checks -Neurology consulted MIKEL -Cr on admission 7.5 -CT abdomen and pelvis showed Indeterminant renal masses -Hydrate with IVF -Avoid nephrotoxic agents -Renal dose all meds -Nephrology consulted R/O Focal Seizures -Evaluated by Tele-neurology; recommendations appreciated -Per Tele-neurology may want to consider MRI brain or repeat CT Head in am -Received IV Keppra in ED -Hold Bacolfen d/t renal function -EEG pending -Hx Right subarachnoid hemorrhage, status post right frontal craniotomy -Hx aneurysm, status post clipping -Continue supportive care -Neurology consulted Tobacco abuse -Current every day smoker -Counseled for cessation -Nicotine patch when necessary History of bipolar History of schizophrenia -Mental Health consult pending DVT PPX -SCD's History Interval history: nausea, vomiting, gen weakness Hospitalist Physical - Physical exam Narrative exam: Gen: Not in acute distress, lying in bed, HEENT: Normocephalic, atraumatic Neck: supple, no JVD Heart: S1 and S2 reg, no murmurs, rubs or gallop Lungs: Clear to auscultation bilaterally, Abd: soft, non tender, non distended, normal BS, Ext: No edema, no clubbing, no cyanosis Neuro: Awake, alert, no focal neurological signs - Constitutional Vitals: Temp Pulse Resp BP Pulse Ox 97.8 F 96 H 15 144/94 96 02/01/19 19:35 02/02/19 13:30 02/02/19 12:37 02/02/19 12:37 02/02/19 12:37 Results - Labs CBC & Chem 7: 02/02/19 05:53 02/02/19 05:53 Labs: Laboratory Last Values WBC 9.7 K/mm3 (4.5-11.0) 02/02/19 05:53 RBC 4.10 M/mm3 (3.65-5.03) 02/02/19 05:53 Hgb 11.4 gm/dl (11.8-15.2) L 02/02/19 05:53 Hct 35.4 % (35.5-45.6) L 02/02/19 05:53 MCV 86 fl (84-94) 02/02/19 05:53 MCH 28 pg (28-32) 02/02/19 05:53 MCHC 32 % (32-34) 02/02/19 05:53 RDW 14.1 % (13.2-15.2) 02/02/19 05:53 Plt Count 113 K/mm3 (140-440) L 02/02/19 05:53 Lymph % (Auto) 18.2 % (13.4-35.0) 02/02/19 05:53 [place] % (Auto) 7.1 % (0.0-7.3) 02/02/19 05:53 Eos % (Auto) 0.5 % (0.0-4.3) 02/02/19 05:53 Baso % (Auto) 0.4 % (0.0-1.8) 02/02/19 05:53 Lymph # 1.8 K/mm3 (1.2-5.4) 02/02/19 05:53 [place] # 0.7 K/mm3 (0.0-0.8) 02/02/19 05:53 Eos # 0.0 K/mm3 (0.0-0.4) 02/02/19 05:53 Baso # 0.0 K/mm3 (0.0-0.1) 02/02/19 05:53 Seg Neutrophils % 73.8 % (40.0-70.0) H 02/02/19 05:53 Seg Neutrophils # 7.2 K/mm3 (1.8-7.7) 02/02/19 05:53 Sodium 145 mmol/L (137-145) 02/02/19 05:53 Potassium 4.8 mmol/L (3.6-5.0) 02/02/19 05:53 Chloride 113.4 mmol/L (98-107) H 02/02/19 05:53 Carbon Dioxide 18 mmol/L (22-30) L 02/02/19 05:53 Anion Gap 18 mmol/L 02/02/19 05:53 BUN 55 mg/dL (9-20) H 02/02/19 05:53 Creatinine 6.9 mg/dL (0.8-1.5) H 02/02/19 05:53 Estimated GFR 10 ml/min 02/02/19 05:53 BUN/Creatinine Ratio 8 % 02/02/19 05:53 Glucose 94 mg/dL (75-100) 02/02/19 05:53 POC Glucose 97 (70-105) 02/01/19 17:54 Calcium 8.9 mg/dL (8.4-10.2) 02/02/19 05:53 Magnesium 2.30 mg/dL (1.7-2.3) 02/01/19 17:52 Ammonia 34.0 umol/L (25-60) 02/01/19 17:52 Total Creatine Kinase 66 units/L (55-170) 02/01/19 17:52 TSH 1.990 mlU/mL (0.270-4.200) 02/01/19 17:52 Urine Color Yellow (Yellow) 02/01/19 20:45 Urine Turbidity Slightly-cloudy (Clear) 02/01/19 20:45 Urine pH 5.0 (5.0-7.0) 02/01/19 20:45 Ur Specific [place] 1.013 (1.003-1.030) 02/01/19 20:45 Urine Protein >500 mg/dL (Negative) 02/01/19 20:45 Urine Glucose (UA) Neg mg/dL (Negative) 02/01/19 20:45 Urine Ketones Neg mg/dL (Negative) 02/01/19 20:45 Urine Blood Sm (Negative) 02/01/19 20:45 Urine Nitrite Neg (Negative) 02/01/19 20:45 Urine Bilirubin Neg (Negative) 02/01/19 20:45 Urine Urobilinogen < 2.0 mg/dL (<2.0) 02/01/19 20:45 Ur Leukocyte Esterase Neg (Negative) 02/01/19 20:45 Urine WBC (Auto) 2.0 /HPF (0.0-6.0) 02/01/19 20:45 Urine RBC (Auto) 3.0 /HPF (0.0-6.0) 02/01/19 20:45 U Epithel Cells (Auto) 1.0 /HPF (0-13.0) 02/01/19 20:45 Urine Bacteria (Auto) 1+ /HPF (Negative) 02/01/19 20:45 Urine Mucus Few /HPF 02/01/19 20:45 Urine Yeast (Budding) 1+ /HPF 02/01/19 20:45 Salicylates < 0.3 mg/dL (2.8-20.0) L 02/01/19 17:52 Acetaminophen < 5.0 ug/mL (10.0-30.0) L 02/01/19 17:52 Plasma/Serum Alcohol < 0.01 % (0-0.07) 02/01/19 17:52 Active Medications - Current Medications Current Medications: Generic Name Dose Route Start Last Admin Trade Name Freq PRN Reason Stop Dose Admin Acetaminophen 650 mg 02/01/19 20:23 Tylenol PO Q4H PRN Pain MILD(1-3)/Fever >100.5/QUAN Amlodipine Besylate 10 mg 02/01/19 21:00 02/02/19 10:21 Amlodipine PO 10 mg QDAY ENOC Administration Carvedilol 6.25 mg 02/01/19 21:21 02/02/19 09:29 Coreg PO 6.25 mg BID ENOC Administration Docusate Sodium 100 mg 02/01/19 22:00 02/02/19 10:22 Colace PO 100 mg BID ENOC Administration Hydralazine HCl 10 mg 02/01/19 20:12 Apresoline IV Q4HR PRN Blood Pressure Hydralazine HCl 100 mg 02/01/19 21:21 02/02/19 15:29 Apresoline PO 100 mg TID ENOC Administration Sodium Chloride 1,000 mls @ 100 mls/hr 02/01/19 21:00 02/02/19 15:29 Nacl 0.9% 1000 Ml IV 75 mls/hr DIRECT ENOC Administration Nicardipine HCl 50 mg/ Sodium 250 mls @ 25 mls/hr 02/01/19 22:00 02/01/19 23 :40 Chloride IV 5 mg/hr TITR ENOC 25 mls/hr Titration Protocol 5 MG/HR Diltiazem HCl 100 mg in 100 mls @ 5 mls/hr 02/02/19 01:00 02/02/19 06:30 Cardizem/D5w 100mg/100ml IV 0 mg/hr TITR ENOC 0 mls/hr Titration Protocol 5 MG/HR Nicotine 14 mg 02/02/19 10:00 02/02/19 10:22 Habitrol TD 14 mg QDAY ENOC Administration Ondansetron HCl 4 mg 02/01/19 20:23 Zofran IV Q8H PRN Nausea And Vomiting Sodium Chloride 10 ml 02/01/19 22:00 02/01/19 22:00 Sodium Chloride Flush Syringe 10 Ml IV 10 ml BID ENOC Administration Sodium Chloride 10 ml 02/01/19 20:23 Sodium Chloride Flush Syringe 10 Ml IV PRN PRN LINE FLUSH
--- NOTE | 2019-02-02 18:16 | Progress Note ---
Assessment and Plan This is a 58 YO M with AMS, likely metabolic encephalopathy. Currently at baseline. Recommend: Continue care for his medical issues as you are doing Will need to follow up with neuro surgery outpatient, CT shows slit like ventricles, might need valve on shunt adjusted Labs reviewed POC discussed with his family at bedside Subjective Date of service: 02/02/19 Interval history: Pt seen by teleneuro. Much better today. Family at bedside say he is at baseline. Objective - Vital Sign Vital Signs - 12hr 02/02/19 02/02/19 02/02/19 06:30 07:00 07:56 Pulse Rate 101 H 98 H 96 H Respiratory 16 14 16 Rate Blood Pressure Blood Pressure 127/94 145/100 159/122 [Left] O2 Sat by Pulse 97 98 99 Oximetry 02/02/19 02/02/19 02/02/19 08:13 08:46 09:01 Pulse Rate 111 H 111 H Respiratory 15 15 15 Rate Blood Pressure Blood Pressure 154/99 144/99 [Left] O2 Sat by Pulse 99 96 Oximetry 02/02/19 02/02/19 02/02/19 09:29 10:21 11:00 Pulse Rate 105 H 105 H 100 H Respiratory 17 Rate Blood Pressure 157/97 163/99 Blood Pressure 162/98 [Left] O2 Sat by Pulse 97 Oximetry 02/02/19 02/02/19 02/02/19 12:00 12:37 13:30 Pulse Rate 90 88 96 H Respiratory 14 15 Rate Blood Pressure Blood Pressure 150/90 144/94 [Left] O2 Sat by Pulse 100 96 Oximetry 02/02/19 16:56 Pulse Rate Respiratory Rate Blood Pressure Blood Pressure [Left] O2 Sat by Pulse 96 Oximetry - General Apperance Constitutional: comfortable - EENT EENT: PERRL, mucous membranes moist - Respiratory Respiratory: lungs clear - Cardiovascular Cardiovascular: regular rate - Gastrointestinal Gastrointestinal: normoactive bowel sounds - Neurologic Cranial nerve examination: PERRL, V1/V2/V3 grossly intact, face symmetric, tongue midline Detailed motor examination: grossly full strength in - Laboratory Findings CBC and BMP: 02/02/19 05:53 02/02/19 05:53 Abnormal Lab Findings: Abnormal Labs 02/01/19 02/01/19 02/01/19 16:38 16:38 16:50 Hgb Hct Plt Count 134 L Lymph % (Auto) 10.0 L Lymph # 0.8 L Seg Neutrophils % 86.1 H Chloride 107.3 H Carbon Dioxide 20 L BUN 58 H Creatinine 7.5 H Glucose 125 H POC Glucose 119 H Salicylates Acetaminophen 02/01/19 02/01/19 02/02/19 17:52 17:52 05:53 Hgb 11.4 L Hct 35.4 L Plt Count 113 L Lymph % (Auto) Lymph # Seg Neutrophils % 73.8 H Chloride Carbon Dioxide BUN Creatinine Glucose POC Glucose Salicylates < 0.3 L Acetaminophen < 5.0 L 02/02/19 05:53 Hgb Hct Plt Count Lymph % (Auto) Lymph # Seg Neutrophils % Chloride 113.4 H Carbon Dioxide 18 L BUN 55 H Creatinine 6.9 H Glucose POC Glucose Salicylates Acetaminophen
--- NOTE | 2019-02-02 22:08 | Consultation ---
History of Present Illness - Reason for Consult Consult date: 02/02/19 acute renal failure, chronic renal failure Requesting physician: HAILEY AYALA - History of Present Illness 58-year-old male with a history of hypertension, schizophrenia/bipolar disorder admitted on account of weakness and altered mental status. Patient was having nausea and vomiting. No diarrhea. Patient fell while trying to ambulate at home and so family brought him to the hospital for further management. Patient has all less than weakness from old ruptured aneurysm. He had right frontal craniotomy with aneurysm clip dominant. Denies any urinary symptoms. No history of ingestion of nonsteroidal anti-inflammatory drugs. No history of recent exposure to radiocontrast. 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 denies: alcohol abuse, prescription drug abuse, IV drug use Family history: no significant family history, other (father is alive and well in his 80s. Mother of complications of alcoholism) Medications and Allergies Allergies Allergy/AdvReac Type Severity Reaction Status Date / Time No Known Allergies Allergy Unverified 04/17/17 13:03 Home Medications Medication Instructions Recorded Confirmed Last Taken Type ARIPiprazole [Abilify] 20 mg PO QDAY 02/03/19 02/03/19 1 Day Ago History ~02/02/19 Losartan/Hydrochlorothiazide 1 each PO QDAY 02/03/19 02/03/19 Unknown History [Losartan-Hctz 100-25 mg Tab] Active Meds: Active Medications Acetaminophen (Tylenol) 650 mg PO Q4H PRN PRN Reason: Pain MILD(1-3)/Fever >100.5/QUAN Amlodipine Besylate (Amlodipine) 10 mg PO QDAY [facility] Last Admin: 02/02/19 10:21 Dose: 10 mg Documented by: Carvedilol (Coreg) 6.25 mg PO BID [facility] Last Admin: 02/02/19 09:29 Dose: 6.25 mg Documented by: Docusate Sodium (Colace) 100 mg PO BID [facility] Last Admin: 02/02/19 10:22 Dose: 100 mg Documented by: Hydralazine HCl (Apresoline) 10 mg IV Q4HR PRN PRN Reason: Blood Pressure Hydralazine HCl (Apresoline) 100 mg PO TID [facility] Last Admin: 02/02/19 15:29 Dose: 100 mg Documented by: Sodium Chloride (Nacl 0.9% 1000 Ml) 1,000 mls @ 100 mls/hr IV DIRECT [facility] Last Admin: 02/02/19 15:29 Dose: 75 mls/hr Documented by: Nicardipine HCl 50 mg/ Sodium (Chloride) 250 mls @ 25 mls/hr IV TITR [facility]; Protocol Last Titration: 02/01/19 23:40 Dose: 5 mg/hr, 25 mls/hr Documented by: Diltiazem HCl (Cardizem/D5w 100mg/100ml) 100 mg in 100 mls @ 5 mls/hr IV TITR [facility]; Protocol Last Titration: 02/02/19 06:30 Dose: 0 mg/hr, 0 mls/hr Documented by: Nicotine (Habitrol) 14 mg TD QDAY [facility] Last Admin: 02/02/19 10:22 Dose: 14 mg Documented by: Ondansetron HCl (Zofran) 4 mg IV Q8H PRN PRN Reason: Nausea And Vomiting Sodium Chloride (Sodium Chloride Flush Syringe 10 Ml) 10 ml IV BID [facility] Last Admin: 02/01/19 22:00 Dose: 10 ml Documented by: Sodium Chloride (Sodium Chloride Flush Syringe 10 Ml) 10 ml IV PRN PRN PRN Reason: LINE FLUSH Review of Systems All systems: negative (Constitutional: no fever or chills. Appetite is diminished but no weight loss. HEENT: No sore throat or sinus drainage no hearing or vision impairment . Cardiovascular: No chest pain, shortness of breath, palpitations, lower extremity swelling or dizziness. Respiratory: Admits to cough productive of whitish sputum, shortness of breath, hemoptysis or wheezing. Gastrointestinal: Admits to nausea or vomiting. No, diarrhea, abdominal pain, hematemesis or melena. Genitourinary: No frequency urgency dysuria or hematuria. hematologic: No abnormal bleeding or bruising. Integumentary: no pruritus but admits to rash. Neurological: Admits to headache and dizziness, no focal weakness or numbness, no syncope or seizures. Musculoskeletal: No joint pains no stiffness. Psychiatry: no anxiety but no de pression) Exam - Vital Signs Vital signs: Vital Signs Temp Pulse Resp BP Pulse Ox 98.7 F 112 H 18 203/146 100 02/01/19 16:30 02/01/19 16:30 02/01/19 16:30 02/01/19 16:30 02/01/19 16:30 - Physical Exam Narrative exam: Disabled middle-aged -Thai male in no acute distress HEENT: NCAT, pink oral mucous membrane, numerous missing teeth Neck: Supple, no venous distention CVS: S1S2 RRR with no murmur, rub or gallop Chest: Clear to auscultation Abdomen: Protuberant, soft, nontender, no organomegaly, bowel sounds are present Extremities: No edema Genitourinary deferred Neuro: Awake, alert no focal deficits Results - Lab Results 02/03/19 06:34 02/03/19 06:34 Most recent lab results Calcium 8.9 mg/dL (8.4-10.2) 02/02/19 05:53 Magnesium 2.30 mg/dL (1.7-2.3) 02/01/19 17:52 Assessment and Plan - Patient Problems (1) Acute kidney injury Current Visit: Yes Status: Acute Plan to address problem: Suspect patient has chronic kidney diseasestage is unknown. It's unclear if patient has acute kidney injury superimposed on chronic kidney disease or kidney disease progressing to end-stage renal disease. Give the nausea and vomiting this could well be uremia but it may also be prerenal azotemia secondary to volu me depletion. Continue volume repletion. Quantify proteinuria. Follow-up electrolytes and renal function. (2) Proteinuria Current Visit: Yes Status: Acute Plan to address problem: Quantify proteinuria. If in the nephrotic range will do a more extensive evaluation for etiology (3) Hypertensive chronic kidney disease with stage 1 through stage 4 chronic kidney disease, or unspecified chronic kidney disease Current Visit: Yes Status: Acute Plan to address problem: Follow-up blood pressure on current medications (4) Schizoaffective disorder Current Visit: Yes Status: Acute Plan to address problem: Continue management by psychiatrist.
[2019-02-03] MEDS: hydrALAZINE 100 MG TAB PO SCH ×4 (02:20→20:58)
[2019-02-03] MEDS: DOCUSATE SODIUM 100 MG CAP PO SCH ×3 (02:21→21:05)
[2019-02-03] MEDS: carvediloL 6.25 MG TAB PO SCH ×3 (02:39→21:05)
[2019-02-03 03:00] LABS: Creatinine,Urine 115.8 mg/dL (0.1-20.0)
[2019-02-03] MEDS: hydrALAZINE 20 MG/1 ML INJ IV PRN (04:52)
[2019-02-03 08:05] LABS: Hematocrit 33.3 % (35.5-45.6); Hemoglobin 10.8 gm/dl (11.8-15.2); Mean Corpuscular HGB Conc 33 % (32-34); Mean Corpuscular Volume 86 fl (84-94); Platelet Count 121 K/mm3 (140-440); Red Blood Count 3.89 M/mm3 (3.65-5.03); Red Cell Distribution Width 14.2 % (13.2-15.2)
[2019-02-03 08:33] LABS: Calcium 8.6 mg/dL (8.4-10.2)
[2019-02-03] MEDS: cloNIDine 0.1 MG TAB PO SCH ×2 (09:00→21:05)
[2019-02-03] MEDS: NICOTINE 14 MG/24 HR PATCH TD SCH (10:15)
[2019-02-03] MEDS: amLODIPine 10 MG TAB PO SCH (10:17)
[2019-02-03] MEDS: SODIUM CHLORIDE 0.9% 1000 ML 1,000 ML IV SCH ×2 (10:25→20:57)
--- NOTE | 2019-02-03 15:13 | Progress Note ---
Assessment and Plan Hypertensive urgency -BP on admission 204/154 -Hx Hypertension -BP uncontrolled. Continue to adjust medications as needed Acute encephalopathy -CT head negative -Afebrile, no leukocytosis -Continue Neuro checks -Neurology consulted and ruled out focal seizure, received IV Keppra in the ER -Hold Bacolfen d/t renal function -EEG ordered, - Possibly underlying psych issues also contributing - Ordered for mental health recommendation MIKEL on CKD 4 - vasomotor nephropathy versus progression of underlying chronic medical disease -Cr on admission 7.5 -CT abdomen and pelvis showed Indeterminant renal masses -Continue Hydrate with IVF -Avoid nephrotoxic agents -Renally dose all meds -Nephrology following N/V - resolved, likely from viral gastritis or GERD Hx Right subarachnoid hemorrhage, status post right frontal craniotomy Hx aneurysm, status post clipping -Continue supportive care -Neurology recommended outpatient follow Tobacco abuse -Current every day smoker -Counseled for cessation -Nicotine patch when necessary History of bipolar History of schizophrenia -Mental Health consult pending Thrombocytopenia. - cont to Monitor DVT PPX -SCD's Brief History 58-year-old -Malian male with history of hypertension, schizophrenia, bipolar, subarachnoid hemorrhage status post right frontal craniotomy, right aneurysm clip in, and chronic left-sided hemiparesis who presents to [facility] ED w ith complaints of generalized weakness, nausea, vomiting and AMS for the past day. Hospitalist Physical Gen: Not in acute distress, lying in bed, HEENT: Normocephalic, atraumatic Neck: supple, no JVD Heart: S1 and S2 reg, no murmurs, rubs or gallop Lungs: Clear to auscultation bilaterally, Abd: soft, non tender, non distended, normal BS, Ext: No edema, no clubbing, no cyanosis Neuro: Awake, alert, left-sided weakness Subjective Date of service: 02/03/19 Interval history: Patient seen and examined. Medical records and medication list reviewed. No acute event overnight noted by the RN. Patient denies any chest pain or difficulty breathing. Patient is tolerating diet. He remained confused Objective - Constitutional Vitals: Vital Signs - 12hr 02/03/19 02/03/19 02/03/19 04:39 04:52 08:53 Temperature 98.4 F 98.5 F Pulse Rate 110 H 110 H 95 H Pulse Rate [ Apical] Pulse Rate [ Dorsalis Pedis] Pulse Rate [ Left Radial] Pulse Rate [ Right Radial] Respiratory 24 18 Rate Blood Pressure 169/102 169/102 157/102 O2 Sat by Pulse 97 99 Oximetry 02/03/19 02/03/19 02/03/19 09:00 10:00 10:17 Temperature Pulse Rate 95 H 99 H Pulse Rate [ 95 H Apical] Pulse Rate [ 95 H Dorsalis Pedis] Pulse Rate [ 95 H Left Radial] Pulse Rate [ 95 H Right Radial] Respiratory 19 Rate Blood Pressure 157/102 110/63 O2 Sat by Pulse 98 Oximetry 02/03/19 13:11 Temperature 98.2 F Pulse Rate 95 H Pulse Rate [ Apical] Pulse Rate [ Dorsalis Pedis] Pulse Rate [ Left Radial] Pulse Rate [ Right Radial] Respiratory 18 Rate Blood Pressure 152/100 O2 Sat by Pulse 100 Oximetry - Labs CBC & Chem 7: 02/05/19 07:00 02/06/19 08:43 Labs: Abnormal lab results 02/02/19 02/03/19 02/03/19 Range/Units 02:30 06:34 06:34 Hgb 10.8 L (11.8-15.2) gm/dl Hct 33.3 L (35.5-45.6) % Plt Count 121 L (140-440) K/mm3 Sodium 146 H (137-145) mmol/L Chloride 114.1 H (98-107) mmol/L Carbon Dioxide 17 L (22-30) mmol/L BUN 60 H (9-20) mg/dL Creatinine 7.1 H (0.8-1.5) mg/dL Urine Creatinine 115.8 H (0.1-20.0) mg/dL Urine Total Protein 198 H (5-11.8) mg/dL
--- NOTE | 2019-02-03 19:41 | Progress Note ---
Assessment and Plan - Patient Problems (1) Acute kidney injury Current Visit: Yes Status: Acute Plan to address problem: Suspect patient has chronic kidney disease stage is unknown. It's unclear if patient has acute kidney injury superimposed on chronic kidney disease or kidney disease progressing to end-stage renal disease. Given the nausea and vomiting this could well be uremia but it may also be prerenal azotemia secondary to volume depletion. Continue volume repletion. Follow-up electrolytes and renal function. (2) Proteinuria Current Visit: Yes Status: Acute Plan to address problem: Nonnephrotic range proteinuria. Continue management (3) Hypertensive chronic kidney disease with stage 1 through stage 4 chronic kidney disease, or unspecified chronic kidney disease Current Visit: Yes Status: Acute Plan to address problem: Follow-up blood pressure on current medications (4) Schizoaffective disorder Current Visit: Yes Status: Acute Plan to address problem: Continue management by psychiatrist. (5) Anemia Current Visit: Yes Status: Acute Plan to address problem: Follow-up hemoglobin. Subjective Date of service: 02/03/19 Principal diagnosis: acute kidney injury Interval history: Patient seen lying in bed. He has no new complaints. Conversation sometimes confused Objective - Exam Narrative Exam: Disabled middle-aged -Indian male in no acute distress HEENT: NCAT, pink oral mucous membrane, numerous missing teeth Neck: Supple, no venous distention CVS: S1S2 RRR with no murmur, rub or gallop Chest: Clear to auscultation Abdomen: Protuberant, soft, nontender, no organomegaly, bowel sounds are present Extremities: No edema Genitourinary deferred Neuro: Awake, alert no focal deficits - Vital Signs Vital signs: Vital Signs - 12hr 02/03/19 02/03/19 02/03/19 08:53 09:00 10:00 Temperature 98.5 F Pulse Rate 95 H 95 H Pulse Rate [ 95 H Apical] Pulse Rate [ 95 H Dorsalis Pedis] Pulse Rate [ 95 H Left Radial] Pulse Rate [ 95 H Right Radial] Respiratory 18 19 Rate Blood Pressure 157/102 157/102 O2 Sat by Pulse 99 98 Oximetry 02/03/19 02/03/19 10:17 13:11 Temperature 98.2 F Pulse Rate 99 H 95 H Pulse Rate [ Apical] Pulse Rate [ Dorsalis Pedis] Pulse Rate [ Left Radial] Pulse Rate [ Right Radial] Respiratory 18 Rate Blood Pressure 110/63 152/100 O2 Sat by Pulse 100 Oximetry - Lab 02/03/19 06:34 02/03/19 06:34 Most recent lab results Calcium 8.6 mg/dL (8.4-10.2) 02/03/19 06:34 Magnesium 2.30 mg/dL (1.7-2.3) 02/01/19 17:52 Urine Creatinine 115.8 mg/dL (0.1-20.0) H 02/02/19 02:30 Urine Sodium 99 mmol/L 02/02/19 02:30 Urine Total Protein 198 mg/dL (5-11.8) H 02/02/19 02:30 Medications & Allergies - Medications Allergies/Adverse Reactions: Allergies No Known Allergies Allergy (Unverified 04/17/17 13:03) Home Medications: Home Medications Medication Instructions Recorded Confirmed Last Taken Type ARIPiprazole [Abilify] 20 mg PO QDAY 02/03/19 02/03/19 1 Day Ago History ~02/02/19 Losartan/Hydrochlorothiazide 1 each PO QDAY 02/03/19 02/03/19 Unknown History [Losartan-Hctz 100-25 mg Tab] Active Medications: Generic Name Dose Route Start Last Admin Trade Name Freq PRN Reason Stop Dose Admin Acetaminophen 650 mg 02/01/19 20:23 Tylenol PO Q4H PRN Pain MILD(1-3)/Fever >100.5/QUAN Amlodipine Besylate 10 mg 02/01/19 21:00 02/03/19 10:17 Amlodipine PO 10 mg QDAY [facility] Administration Carvedilol 6.25 mg 02/01/19 21:21 02/03/19 10:17 Coreg PO 6.25 mg BID [facility] Administration Clonidine HCl 0.1 mg 02/03/19 08:00 02/03/19 09:00 Catapres PO 0.1 mg Q12HR [facility] Administration Docusate Sodium 100 mg 02/01/19 22:00 02/03/19 10:15 Colace PO 100 mg BID [facility] Administration Hydralazine HCl 10 mg 02/01/19 20:12 02/03/19 04:52 Apresoline IV 10 mg Q4HR PRN Administration Blood Pressure Hydralazine HCl 100 mg 02/01/19 21:21 02/03/19 13:51 Apresoline PO 100 mg TID [facility] Administration Sodium Chloride 1,000 mls @ 100 mls/hr 02/01/19 21:00 02/03/19 10:25 Nacl 0.9% 1000 Ml IV 100 mls/hr DIRECT [facility] Administration Nicardipine HCl 50 mg/ Sodium 250 mls @ 25 mls/hr 02/01/19 22:00 02/01/19 23:40 Chloride IV 5 mg/hr TITR [facility] 25 mls/hr Titration Protocol 5 MG/HR Diltiazem HCl 100 mg in 100 mls @ 5 mls/hr 02/02/19 01:00 02/02/19 06:30 Cardizem/D5w 100mg/100ml IV 0 mg/hr TITR [facility] 0 mls/hr Titration Protocol 5 MG/HR Nicotine 14 mg 02/02/19 10:00 02/03/19 10:15 Habitrol TD 14 mg QDAY [facility] Administration Ondansetron HCl 4 mg 02/01/19 20:23 Zofran IV Q8H PRN Nausea And Vomiting Sodium Chloride 10 ml 02/01/19 22:00 02/03/19 10:18 Sodium Chloride Flush Syringe 10 Ml IV 10 ml BID [facility] Administration Sodium Chloride 10 ml 02/01/19 20:23 Sodium Chloride Flush Syringe 10 Ml IV PRN PRN LINE FLUSH
[2019-02-04] MEDS: hydrALAZINE 20 MG/1 ML INJ IV PRN (05:25)
[2019-02-04] MEDS: hydrALAZINE 100 MG TAB PO SCH ×3 (08:15→20:08)
--- NOTE | 2019-02-04 10:36 | Progress Note ---
Assessment and Plan - Patient Problems (1) Acute kidney injury Current Visit: Yes Status: Acute Plan to address problem: Suspect patient has chronic kidney disease stage is unknown. It's unclear if patient has acute kidney injury superimposed on chronic kidney disease or kidney disease progressing to end-stage renal disease. Given the nausea and vomiting this could well be uremia but it may also be prerenal azotemia secondary to volume depletion. Kidney function has not been improving. Labs are pending today. Continue volume repletion. Follow-up electrolytes and renal function. I discussed with the patient's and daughter about patient's condition and possible need for dialysis. Hopefully kidney function status improved as with h is psychiatric problems dialysis will be quite challenging (2) Proteinuria Current Visit: Yes Status: Acute Plan to address problem: Nonnephrotic range proteinuria. Continue management (3) Hypertensive chronic kidney disease with stage 1 through stage 4 chronic kidney disease, or unspecified chronic kidney disease Current Visit: Yes Status: Acute Plan to address problem: Follow-up blood pressure on current medications (4) Schizoaffective disorder Current Visit: Yes Status: Acute Plan to address problem: Needs psychiatry consultation (5) Anemia Current Visit: Yes Status: Acute Plan to address problem: Follow-up hemoglobin. Subjective Date of service: 02/04/19 Principal diagnosis: acute kidney injury Interval history: Patient seen lying in bed. He has no new complaints. His and daughter are at the bedside Objective - Exam Narrative Exam: Disabled middle-aged -Jordanian male in no acute distress HEENT: NCAT, pink oral mucous membrane, numerous missing teeth Neck: Supple, no venous distention CVS: S1S2 RRR with no murmur, rub or gallop Chest: Clear to auscultation Abdomen: Protuberant, soft, nontender, no organomegaly, bowel sounds are present Extremities: No edema Genitourinary deferred Neuro: Awake, alert no focal deficits - Vital Signs Vital signs: Vital Signs - 12hr 02/03/19 02/04/19 02/04/19 23:42 05:27 07:52 Temperature 98.4 F 97.9 F 98.3 F Pulse Rate 85 76 89 Respiratory 18 18 18 Rate Blood Pressure 154/100 192/109 196/115 O2 Sat by Pulse 100 100 97 Oximetry - Lab 02/03/19 06:34 02/03/19 06:34 Most recent lab results Calcium 8.6 mg/dL (8.4-10.2) 02/03/19 06:34 Magnesium 2.30 mg/dL (1.7-2.3) 02/01/19 17:52 Urine Creatinine 115.8 mg/dL (0.1-20.0) H 02/02/19 02:30 Urine Sodium 99 mmol/L 02/02/19 02:30 Urine Total Protein 198 mg/dL (5-11.8) H 02/02/19 02:30 Medications & Allergies - Medications Allergies/Adverse Reactions: Allergies No Known Allergies Allergy (Unverified 04/17/17 13:03) Home Medications: Home Medications Medication Instructions Recorded Confirmed Last Taken Type ARIPiprazole [Abilify] 20 mg PO QDAY 02/03/19 02/03/19 1 Day Ago History ~02/02/19 Losartan/Hydrochlorothiazide 1 each PO QDAY 02/03/19 02/03/19 Unknown History [Losartan-Hctz 100-25 mg Tab] Active Medications: Generic Name Dose Route Start Last Admin Trade Name Freq PRN Reason Stop Dose Admin Acetaminophen 650 mg 02/01/19 20:23 Tylenol PO Q4H PRN Pain MILD(1-3)/Fever >100.5/QUAN Amlodipine Besylate 10 mg 02/01/19 21:00 02/03/19 10:17 Amlodipine PO 10 mg QDAY [facility] Administration Carvedilol 6.25 mg 02/01/19 21:21 02/03/19 21:05 Coreg PO 6.25 mg BID [facility] Administration Clonidine HCl 0.1 mg 02/03/19 08:00 02/03/19 21:05 Catapres PO 0.1 mg Q12HR [facility] Administration Docusate Sodium 100 mg 02/01/19 22:00 02/03/19 21:05 Colace PO 100 mg BID [facility] Administration Hydralazine HCl 10 mg 02/01/19 20:12 02/04/19 05:25 Apresoline IV 10 mg Q4HR PRN Administration Blood Pressure Hydralazine HCl 100 mg 02/01/19 21:21 02/04/19 08:15 Apresoline PO 100 mg TID [facility] Administration Sodium Chloride 1,000 mls @ 100 mls/hr 02/01/19 21:00 02/03/19 20:57 Nacl 0.9% 1000 Ml IV 100 mls/hr DIRECT [facility] Administration Nicardipine HCl 50 mg/ Sodium 250 mls @ 25 mls/hr 02/01/19 22:00 02/01/19 23:40 Chloride IV 5 mg/hr TITR [facility] 25 mls/hr Titration Protocol 5 MG/HR Diltiazem HCl 100 mg in 100 mls @ 5 mls/hr 02/02/19 01:00 02/02/19 06:30 Cardizem/D5w 100mg/100ml IV 0 mg/hr TITR [facility] 0 mls/hr Titration Protocol 5 MG/HR Nicotine 14 mg 02/02/19 10:00 02/03/19 10:15 Habitrol TD 14 mg QDAY [facility] Administration Ondansetron HCl 4 mg 02/01/19 20:23 Zofran IV Q8H PRN Nausea And Vomiting Sodium Chloride 10 ml 02/01/19 22:00 02/03/19 21:06 Sodium Chloride Flush Syringe 10 Ml IV 10 ml BID [facility] Administration Sodium Chloride 10 ml 02/01/19 20:23 02/04/19 05:25 Sodium Chloride Flush Syringe 10 Ml IV 10 ml PRN PRN Administration LINE FLUSH
[2019-02-04] MEDS: amLODIPine 10 MG TAB PO SCH (11:04)
[2019-02-04] MEDS: DOCUSATE SODIUM 100 MG CAP PO SCH ×2 (11:04→22:23)
[2019-02-04] MEDS: NICOTINE 14 MG/24 HR PATCH TD SCH (11:04)
[2019-02-04] MEDS: carvediloL 6.25 MG TAB PO SCH ×2 (11:05→22:23)
[2019-02-04] MEDS: cloNIDine 0.1 MG TAB PO SCH ×2 (11:05→22:23)
[2019-02-04 11:38] LABS: Calcium 8.6 mg/dL (8.4-10.2)
--- NOTE | 2019-02-04 12:41 | Progress Note ---
Assessment and Plan Hypertensive urgency -BP on admission 204/154 -Hx Hypertension -BP uncontrolled. Continue to adjust medications as needed Acute encephalopathy -CT head negative -Afebrile, no leukocytosis -Continue Neuro checks -Neurology consulted and ruled out focal seizure, received IV Keppra in the ER -Hold Bacolfen d/t renal function -EEG ordered, - Possibly underlying psych issues also contributing - Ordered for mental health recommendation MIKEL on CKD 4 - vasomotor nephropathy versus progression of underlying chronic medical disease -Cr on admission 7.5 -CT abdomen and pelvis showed Indeterminant renal masses -Continue Hydrate with IVF -Avoid nephrotoxic agents -Renally dose all meds -Nephrology following N/V - resolved, likely from viral gastritis or GERD Hx Right subarachnoid hemorrhage, status post right frontal craniotomy Hx aneurysm, status post clipping -Continue supportive care -Neurology recommended outpatient follow Tobacco abuse -Current every day smoker -Counseled for cessation -Nicotine patch when necessary History of bipolar History of schizophrenia -Mental Health consult pending Thrombocytopenia. - cont to Monitor DVT PPX -SCD's Disposition: When clears by nephrology and mental health Brief History 58-year-old -[place] male with history of hypertension, schizophrenia, bipolar, subarachnoid hemorrhage status post right frontal craniotomy, right aneurysm clip in, and chronic left-sided hemiparesis who presents to [facility] ED with complaints of generalized weakness, nausea, vomiting and AMS for the past day. Hospitalist Physical Gen: Not in acute distress, lying in bed, HEENT: Normocephalic, atraumatic Neck: supple, no JVD Heart: S1 and S2 reg, no murmurs, rubs or gallop Lungs: Clear to auscultation bilaterally, Abd: soft, non tender, non distended, normal BS, Ext: No edema, no clubbing, no cyanosis Neuro: Awake, alert, left-sided weakness Subjective Date of service: 02/04/19 Principal diagnosis: acute kidney injury Interval history: Patient seen and examined. Medical records and medication list reviewed. No acute event overnight noted by the RN. Patient denies any chest pain or difficulty breathing. Patient is tolerating d iet. He remained confused Objective - Constitutional Vitals: Vital Signs - 12hr 02/04/19 02/04/19 02/04/19 05:27 07:52 11:04 Temperature 97.9 F 98.3 F Pulse Rate 76 89 102 H Respiratory 18 18 Rate Blood Pressure 192/109 196/115 171/105 O2 Sat by Pulse 100 97 Oximetry 02/04/19 11:05 Temperature Pulse Rate 102 H Respiratory Rate Blood Pressure 171/105 O2 Sat by Pulse Oximetry - Labs CBC & Chem 7: 02/05/19 07:00 02/06/19 08:43 Labs: Abnormal lab results 02/04/19 Range/Units 10:29 Chloride 115.9 H (98-107) mmol/L Carbon Dioxide 16 L (22-30) mmol/L BUN 62 H (9-20) mg/dL Creatinine 7.0 H (0.8-1.5) mg/dL Glucose 105 H (75-100) mg/dL
[2019-02-04] MEDS: SODIUM CHLORIDE 0.9% 1000 ML 1,000 ML IV SCH (14:16)
[2019-02-05] MEDS: SODIUM CHLORIDE 0.9% 1000 ML 1,000 ML IV SCH ×2 (00:30→20:57)
[2019-02-05] MEDS ORDERED: hydrALAZINE 20 MG/1 ML INJ IV ONE (05:00)
[2019-02-05 07:49] LABS: Hematocrit 31.7 % (35.5-45.6); Hemoglobin 10.1 gm/dl (11.8-15.2); Mean Corpuscular HGB Conc 32 % (32-34); Mean Corpuscular Volume 87 fl (84-94); Platelet Count 125 K/mm3 (140-440); Red Blood Count 3.63 M/mm3 (3.65-5.03); Red Cell Distribution Width 14.3 % (13.2-15.2)
[2019-02-05 08:13] LABS: Calcium 8.5 mg/dL (8.4-10.2)
[2019-02-05] MEDS: hydrALAZINE 100 MG TAB PO SCH ×3 (08:51→20:56)
[2019-02-05] MEDS: cloNIDine 0.1 MG TAB PO SCH ×2 (09:44→23:05)
[2019-02-05] MEDS: DOCUSATE SODIUM 100 MG CAP PO SCH ×2 (09:44→23:05)
[2019-02-05] MEDS: amLODIPine 10 MG TAB PO SCH (09:45)
[2019-02-05] MEDS: carvediloL 6.25 MG TAB PO SCH ×2 (09:45→23:05)
[2019-02-05] MEDS: NICOTINE 14 MG/24 HR PATCH TD SCH (09:46)
--- NOTE | 2019-02-05 12:14 | Consultation ---
History of Present Illness - Reason for Consult Consult date: 02/05/19 Reason for consult: Psychiatric consult Requesting physician: JAVED POZO - Chief Complaint Chief complaint: " I feel alright" - History of Present Psychiatric Illness Patient is a 58 y/o male that presents for evaluation. Patient has CKD that may be progressing at this time. He presented to ER with altered mental status. On presentation today is slightly confused, but easily reoriented. He is calm and has been calm per staff. He denies any auditiory or visual hallucinations. He denies any SI or HI. Medications and Allergies Allergies Allergy/AdvReac Type Severity Reaction Status Date / Time No Known Allergies Allergy Unverified 04/17/17 13:03 Home Medications Medication Instructions Recorded Confirmed Last Taken Type ARIPiprazole [Abilify] 20 mg PO QDAY 02/03/19 02/03/19 1 Day Ago History ~02/02/19 Losartan/Hydrochlorothiazide 1 each PO QDAY 02/03/19 02/03/19 Unknown History [Losartan-Hctz 100-25 mg Tab] Active Meds: Active Medications Acetaminophen (Tylenol) 650 mg PO Q4H PRN PRN Reason: Pain MILD(1-3)/Fever >100.5/QUAN Amlodipine Besylate (Amlodipine) 10 mg PO QDAY [facility] Last Admin: 02/05/19 09:45 Dose: 10 mg Documented by: Carvedilol (Coreg) 6.25 mg PO BID [facility] Last Admin: 02/05/19 09:45 Dose: 6.25 mg Documented by: Clonidine HCl (Catapres) 0.1 mg PO Q12HR [facility] Last Admin: 02/05/19 09:44 Dose: 0.1 mg Documented by: Docusate Sodium (Colace) 100 mg PO BID [facility] Last Admin: 02/05/19 09:44 Dose: 100 mg Documented by: Hydralazine HCl (Apresoline) 10 mg IV Q4HR PRN PRN Reason: Blood Pressure Last Admin: 02/04/19 05:25 Dose: 10 mg Documented by: Hydralazine HCl (Apresoline) 100 mg PO TID [facility] Last Admin: 02/05/19 08:51 Dose: 100 mg Documented by: Sodium Chloride (Nacl 0.9% 1000 Ml) 1,000 mls @ 100 mls/hr IV DIRECT [facility] Last Admin: 02/05/19 00:30 Dose: 100 mls/hr Documented by: Nicardipine HCl 50 mg/ Sodium (Chloride) 250 mls @ 25 mls/hr IV TITR ENOC; Protocol Last Titration: 02/01/19 23:40 Dose: 5 mg/hr, 25 mls/hr Documented by: Diltiazem HCl (Cardizem/D5w 100mg/100ml) 100 mg in 100 mls @ 5 mls/hr IV TITR ENOC; Protocol Last Titration: 02/02/19 06:30 Dose: 0 mg/hr, 0 mls/hr Documented by: Nicotine (Habitrol) 14 mg TD QDAY [facility] Last Admin: 02/05/19 09:46 Dose: 14 mg Documented by: Ondansetron HCl (Zofran) 4 mg IV Q8H PRN PRN Reason: Nausea And Vomiting Sodium Chloride (Sodium Chloride Flush Syringe 10 Ml) 10 ml IV BID [facility] Last Admin: 02/05/19 09:46 Dose: 10 ml Documented by: Sodium Chloride (Sodium Chloride Flush Syringe 10 Ml) 10 ml IV PRN PRN PRN Reason: LINE FLUSH Last Admin: 02/04/19 05:25 Dose: 10 ml Documented by: Past psychiatric history - past Psychiatric treatment and history Psych: Depression - Social History Social history: no significant social history Mental Status Exam - Vital signs Last Vital Signs Temp 99.3 F 02/05/19 08:42 Pulse 126 H 02/05/19 09:45 Resp 18 02/05/19 08:42 BP 170/104 02/05/19 09:45 Pulse Ox 100 02/05/19 08:42 - Exam Orientation: time, person Affect: depressed Mood: appropriate Thought Process: Circumstantial Perceptions: none Speech: slow Concentration: distractible Motor activity: normal Level of consciousness: alert Memory: Intact Interaction: cooperative Results Result Diagrams: 02/05/19 07:00 02/05/19 07:00 Abnormal lab results 02/05/19 02/05/19 Range/Units 07:00 07:00 RBC 3.63 L (3.65-5.03) M/mm3 Hgb 10.1 L (11.8-15.2) gm/dl Hct 31.7 L (35.5-45.6) % Plt Count 125 L (140-440) K/mm3 Chloride 115.6 H (98-107) mmol/L Carbon Dioxide 14 L (22-30) mmol/L BUN 59 H (9-20) mg/dL Creatinine 6.8 H (0.8-1.5) mg/dL All other labs normal. Assessment and Plan Assessment and plan: Impression: This is a 49 y/o male that presented with altered mental status. He is calm , alert with mild to moderate confusion. We believe at this time his confusion may be associated with CKD progressing to ESRD. We will follow-up with internal med and nephrology Ddx: Delirium, MDD, MDD with psychotic features, Psychosis unspecified Plan: Initiate Delirium precautions.. Meds evaluated for those that may cause delirium or increase delirium. Will follow-up in 24 hours. .. Obtain collaborative information for support/family Follow-up with Nephrology and Internal Med Staffed with Dr. Raffaele MD
--- NOTE | 2019-02-05 13:51 | Progress Note ---
Assessment and Plan Hypertensive urgency -BP on admission 204/154 -Hx Hypertension -BP uncontrolled. Continue to adjust medications as needed Acute encephalopathy -CT head negative -Afebrile, no leukocytosis -Continue Neuro checks -Neurology consulted and ruled out focal seizure, received IV Keppra in the ER -Hold Bacolfen d/t renal function -EEG ordered, - Possibly underlying psych issues also contributing - Ordered for mental health recommendation MIKEL on CKD 4 - vasomotor nephropathy versus progression of underlying chronic medical disease -Cr on admission 7.5 -CT abdomen and pelvis showed Indeterminant renal masses -Continue Hydrate with IVF -Avoid nephrotoxic agents -Renally dose all meds -Nephrology following N/V - resolved, likely from viral gastritis or GERD Hx Right subarachnoid hemorrhage, status post right frontal craniotomy Hx aneurysm, status post clipping -Continue supportive care -Neurology recommended outpatient follow Tobacco abuse -Current every day smoker -Counseled for cessation -Nicotine patch when necessary History of bipolar History of schizophrenia -Mental Health consult pending Thrombocytopenia. - cont to Monitor DVT PPX -SCD's Disposition: When clears by nephrology and mental health Brief History 58-year-old -Nigerien male with history of hypertension, schizophrenia, bipolar, subarachnoid hemorrhage status post right frontal craniotomy, right aneurysm clip in, and chronic left-sided hemiparesis who presents to [facility] ED with complaints of generalized weakness, nausea, vomiting and AMS for the past day. Hospitalist Physical Gen: Not in acute distress, lying in bed, HEENT: Normocephalic, atraumatic Neck: supple, no JVD Heart: S1 and S2 reg, no murmurs, rubs or gallop Lungs: Clear to auscultation bilaterally, Abd: soft, non tender, non distended, normal BS, Ext: No edema, no clubbing, no cyanosis Neuro: Awake, alert, left-sided weakness Subjective Date of service: 02/05/19 Principal diagnosis: acute kidney injury Interval history: Patient seen and examined. Medical records and medication list reviewed. No acute event overnight noted by the RN. Patient denies any chest pain or difficulty breathing. Patient is tolerating d iet. He remained confused Objective - Constitutional Vitals: Vital Signs - 12hr 02/05/19 02/05/19 02/05/19 04:53 05:38 08:42 Temperature 98.0 F 99.3 F Pulse Rate 72 70 70 Pulse Rate [ Apical] Respiratory 18 18 Rate Blood Pressure 173/110 171/110 170/104 O2 Sat by Pulse 100 100 Oximetry 02/05/19 02/05/19 02/05/19 09:44 09:45 10:00 Temperature Pulse Rate 126 H 126 H 126 H Pulse Rate [ 126 H Apical] Respiratory 18 Rate Blood Pressure 170/104 170/104 O2 Sat by Pulse 94 Oximetry 02/05/19 12:31 Temperature 98.0 F Pulse Rate 74 Pulse Rate [ Apical] Respiratory 18 Rate Blood Pressure 131/93 O2 Sat by Pulse 100 Oximetry - Labs CBC & Chem 7: 02/05/19 07:00 02/06/19 08:43 Labs: Abnormal lab results 02/05/19 02/05/19 Range/Units 07:00 07:00 RBC 3.63 L (3.65-5.03) M/mm3 Hgb 10.1 L (11.8-15.2) gm/dl Hct 31.7 L (35.5-45.6) % Plt Count 125 L (140-440) K/mm3 Chloride 115.6 H (98-107) mmol/L Carbon Dioxide 14 L (22-30) mmol/L BUN 59 H (9-20) mg/dL Creatinine 6.8 H (0.8-1.5) mg/dL
--- NOTE | 2019-02-05 17:42 | Progress Note ---
Assessment and Plan - Patient Problems (1) Acute kidney injury Current Visit: Yes Status: Acute Plan to address problem: Suspect patient has chronic kidney disease stage is unknown. It's unclear if patient has acute kidney injury superimposed on chronic kidney disease or kidney disease progressing to end-stage renal disease. Given the nausea and vomiting this could well be uremia but it may also be prerenal azotemia secondary to volume depletion. Kidney function has not been improving. Continue volume repletion. Follow-up electrolytes and renal function. I discussed with the patient's and daughter yesterday about patient's condition and possible need for dialysis. Hopefully kidney function status improved as with his psychiatric problems dialysis will be quite challenging (2) Proteinuria Current Visit: Yes Status: Acute Plan to address problem: Nonnephrotic range proteinuria. Continue management (3) Hypertensive chronic kidney disease with stage 1 through stage 4 chronic kidney disease, or unspecified chronic kidney disease Current Visit: Yes Status: Acute Plan to address problem: Follow-up blood pressure on current medications (4) Schizoaffective disorder Current Visit: Yes Status: Acute Plan to address problem: Psychiatry input appreciated (5) Anemia Current Visit: Yes Status: Acute Plan to address problem: Follow-up hemoglobin. Subjective Date of service: 02/05/19 Principal diagnosis: acute kidney injury Interval history: Patient seen lying in bed. He has no new complaints. Sometimes confused. No family at the bedside Objective - Exam Narrative Exam: Disabled middle-aged -[place] male in no acute distress HEENT: NCAT, pink oral mucous membrane, numerous missing teeth Neck: Supple, no venous distention CVS: S1S2 RRR with no murmur, rub or gallop Chest: Clear to auscultation Abdomen: Protuberant, soft, nontender, no organomegaly, bowel sounds are present Extremities: No edema Genitourinary deferred Neuro: Awake, alert no focal deficits - Vital Signs Vital signs: Vital Signs - 12hr 02/05/19 02/05/19 02/05/19 08:42 09:44 09:45 Temperature 99.3 F Pulse Rate 70 126 H 126 H Pulse Rate [ Apical] Respiratory 18 Rate Blood Pressure 170/104 170/104 170/104 O2 Sat by Pulse 100 Oximetry 02/05/19 02/05/19 02/05/19 10:00 12:31 15:04 Temperature 98.0 F Pulse Rate 126 H 74 68 Pulse Rate [ 126 H Apical] Respiratory 18 18 Rate Blood Pressure 131/93 135/88 O2 Sat by Pulse 94 100 100 Oximetry 02/05/19 17:05 Temperature 98.8 F Pulse Rate 75 Pulse Rate [ Apical] Respiratory 18 Rate Blood Pressure 130/85 O2 Sat by Pulse 100 Oximetry - Lab 02/05/19 07:00 02/05/19 07:00 Most recent lab results Calcium 8.5 mg/dL (8.4-10.2) 02/05/19 07:00 Magnesium 2.30 mg/dL (1.7-2.3) 02/01/19 17:52 Urine Creatinine 115.8 mg/dL (0.1-20.0) H 02/02/19 02:30 Urine Sodium 99 mmol/L 02/02/19 02:30 Urine Total Protein 198 mg/dL (5-11.8) H 02/02/19 02:30 Medications & Allergies - Medications Allergies/Adverse Reactions: Allergies No Known Allergies Allergy (Unverified 04/17/17 13:03) Home Medications: Home Medications Medication Instructions Recorded Confirmed Last Taken Type ARIPiprazole [Abilify] 20 mg PO QDAY 02/03/19 02/03/19 1 Day Ago History ~02/02/19 Losartan/Hydrochlorothiazide 1 each PO QDAY 02/03/19 02/03/19 Unknown History [Losartan-Hctz 100-25 mg Tab] Active Medications: Generic Name Dose Route Start Last Admin Trade Name Freq PRN Reason Stop Dose Admin Acetaminophen 650 mg 02/01/19 20:23 Tylenol PO Q4H PRN Pain MILD(1-3)/Fever >100.5/QUAN Amlodipine Besylate 10 mg 02/01/19 21:00 02/05/19 09:45 Amlodipine PO 10 mg QDAY EN[facility] Administration Carvedilol 6.25 mg 02/01/19 21:21 02/05/19 09:45 Coreg PO 6.25 mg BID ENOC Administration Clonidine HCl 0.1 mg 02/03/19 08:00 02/05/19 09:44 Catapres PO 0.1 mg Q12HR [facility] Administration Docusate Sodium 100 mg 02/01/19 22:00 02/05/19 09:44 Colace PO 100 mg BID ENOC Administration Hydralazine HCl 10 mg 02/01/19 20:12 02/04/19 05:25 Apresoline IV 10 mg Q4HR PRN Administration Blood Pressure Hydralazine HCl 100 mg 02/01/19 21:21 02/05/19 15:04 Apresoline PO 100 mg TID ENOC Administration Sodium Chloride 1,000 mls @ 100 mls/hr 02/01/19 21:00 02/05/19 00:30 Nacl 0.9% 1000 Ml IV 100 mls/hr DIRECT ENOC Administration Nicardipine HCl 50 mg/ Sodium 250 mls @ 25 mls/hr 02/01/19 22:00 02/01/19 23:40 Chloride IV 5 mg/hr TITR ENOC 25 mls/hr Titration Protocol 5 MG/HR Diltiazem HCl 100 mg in 100 mls @ 5 mls/hr 02/02/19 01:00 02/02/19 06:30 Cardizem/D5w 100mg/100ml IV 0 mg/hr TITR ENOC 0 mls/hr Titration Protocol 5 MG/HR Nicotine 14 mg 02/02/19 10:00 02/05/19 09:46 Habitrol TD 14 mg QDAY ENOC Administration Ondansetron HCl 4 mg 02/01/19 20:23 Zofran IV Q8H PRN Nausea And Vomiting Sodium Chloride 10 ml 02/01/19 22:00 02/05/19 09:46 Sodium Chloride Flush Syringe 10 Ml IV 10 ml BID EN[facility] Administration Sodium Chloride 10 ml 02/01/19 20:23 02/04/19 05:25 Sodium Chloride Flush Syringe 10 Ml IV 10 ml PRN PRN Administration LINE FLUSH
[2019-02-06 09:56] LABS: Calcium 8.7 mg/dL (8.4-10.2)
--- NOTE | 2019-02-06 10:49 | Progress Note ---
Assessment and Plan Assessment: 1. Acute kidney injury 2. Proteinuria 3. Hypertension 4. Schizoaffective disorder 5. Anemia Plan: - Suspect patient has chronic kidney disease stage is unknown. It's unclear if patient has acute kidney injury superimposed on chronic kidney disease or kidney disease progressing to end-stage renal disease. Given the nausea and vomiting this could well be uremia but it may also be prerenal azotemia secondary to vol ume depletion. Kidney function has not been improving, however pt with increased urine output. Continue volume repletion. Follow-up electrolytes and renal function. Discussed with family about patient's condition and possible need for dialysis in the future. Hopefully kidney function status improved as with his psychiatric problems dialysis will be quite challenging. No acute indication for renal replacement therapy at present - Nonnephrotic range proteinuria. Continue management - Monitor BP on current medications - follow Psychiatry recommendations for treatment of Schizoaffective disorder - Follow-up hemoglobin. Subjective Date of service: 02/06/19 Principal diagnosis: acute kidney injury Interval history: Pt awake, confused, disoriented, in no acute respiratory distress Objective - Vital Signs Vital signs: Vital Signs - 12hr 02/05/19 02/05/19 02/05/19 23:05 23:36 23:57 Temperature 98.0 F Pulse Rate 76 Respiratory 18 Rate Blood Pressure 165/104 168/103 165/104 Blood Pressure [Left] O2 Sat by Pulse Oximetry 02/06/19 02/06/19 04:27 07:52 Temperature 98 F 98.2 F Pulse Rate 78 74 Respiratory 18 18 Rate Blood Pressure 197/115 Blood Pressure 151/99 [Left] O2 Sat by Pulse 94 98 Oximetry - General Appearance General appearance: well-developed, appears stated age, chronically ill EENT: ATNC, PERRL, mucous membranes moist Neck: no JVD Respiratory: Present: Clear to Ascultation Cardiology: regular, S1S2 Gastrointestinal: normoactive bowel sounds Integumentary: no rash, other (no edema ) Neurologic: no focal deficit, strength 5/5, CN 3-12 intact Psychiatric: agitated, paranoid ideation - Lab 02/05/19 07:00 02/06/19 08:43 Most recent lab results Calcium 8.7 mg/dL (8.4-10.2) 02/06/19 08:43 Magnesium 2.30 mg/dL (1.7-2.3) 02/01/19 17:52 Urine Creatinine 115.8 mg/dL (0.1-20.0) H 02/02/19 02:30 Urine Sodium 99 mmol/L 02/02/19 02:30 Urine Total Protein 198 mg/dL (5-11.8) H 02/02/19 02:30 Medications & Allergies - Medications Allergies/Adverse Reactions: Allergies No Known Allergies Allergy (Unverified 04/17/17 13:03) Home Medications: Home Medications Medication Instructions Recorded Confirmed Last Taken Type ARIPiprazole [Abilify] 20 mg PO QDAY 02/03/19 02/03/19 1 Day Ago History ~02/02/19 Losartan/Hydrochlorothiazide 1 each PO QDAY 02/03/19 02/03/19 Unknown History [Losartan-Hctz 100-25 mg Tab] Active Medications: Generic Name Dose Route Start Last Admin Trade Name Freq PRN Reason Stop Dose Admin Acetaminophen 650 mg 02/01/19 20:23 Tylenol PO Q4H PRN Pain MILD(1-3)/Fever >100.5/QUAN Amlodipine Besylate 10 mg 02/01/19 21:00 02/05/19 09:45 Amlodipine PO 10 mg QDAY EN[facility] Administration Carvedilol 6.25 mg 02/01/19 21:21 02/05/19 23:05 Coreg PO 6.25 mg BID ENOC Administration Clonidine HCl 0.1 mg 02/03/19 08:00 02/05/19 23:05 Catapres PO 0.1 mg Q12HR ENOC Administration Docusate Sodium 100 mg 02/01/19 22:00 02/05/19 23:05 Colace PO 100 mg BID ENOC Administration Hydralazine HCl 10 mg 02/01/19 20:12 02/04/19 05:25 Apresoline IV 10 mg Q4HR PRN Administration Blood Pressure Hydralazine HCl 100 mg 02/01/19 21:21 02/05/19 20:56 Apresoline PO 100 mg TID ENOC Administration Sodium Chloride 1,000 mls @ 100 mls/hr 02/01/19 21:00 02/05/19 20:57 Nacl 0.9% 1000 Ml IV 100 mls/hr DIRECT EN[facility] Administration Nicotine 14 mg 02/02/19 10:00 02/05/19 09:46 Habitrol TD 14 mg QDAY EN[facility] Administration Ondansetron HCl 4 mg 02/01/19 20:23 Zofran IV Q8H PRN Nausea And Vomiting Sodium Chloride 10 ml 02/01/19 22:00 02/05/19 23:05 Sodium Chloride Flush Syringe 10 Ml IV 10 ml BID ENOC Administration Sodium Chloride 10 ml 02/01/19 20:23 02/04/19 05:25 Sodium Chloride Flush Syringe 10 Ml IV 10 ml PRN PRN Administration LINE FLUSH
[2019-02-06] MEDS ORDERED: cloNIDine 0.1 MG TAB PO SCH (10:54)
[2019-02-06] MEDS: NICOTINE 14 MG/24 HR PATCH TD SCH (12:40)
[2019-02-06] MEDS: PANTOPRAZOLE 40 MG TAB PO SCH (12:43)
[2019-02-06] MEDS: amLODIPine 10 MG TAB PO SCH (12:43)
[2019-02-06] MEDS: DOCUSATE SODIUM 100 MG CAP PO SCH ×2 (12:44→22:56)
[2019-02-06] MEDS: hydrALAZINE 100 MG TAB PO SCH ×2 (12:44→19:13)
[2019-02-06] MEDS: cloNIDine 0.2 MG TAB PO SCH ×2 (12:45→22:57)
[2019-02-06] MEDS: carvediloL 6.25 MG TAB PO SCH ×2 (12:45→22:56)
--- NOTE | 2019-02-06 12:52 | Progress Note ---
Subjective - Reason for Consult Consult date: 02/06/19 Reason for consult: Psychiatry Follow-up - Chief Complaint Chief complaint: "I'm okay" 58 y.o. AA male who presented to the ER for AMS. Today the patient was calm, but somewhat confused. He was able to state his and the current [place] President. He wasn't able to recall 3 numbers in 5 mins. He did state that he have been to [facility] several times and take Abilify that "works" per the patient. He wasn't not able to answer others questions about his mental health. He denies SI/HI's and AVH's. Mental Status Exam - Vital signs Last Vital Signs Temp 98.2 F 02/06/19 07:52 Pulse 74 02/06/19 07:52 Resp 18 02/06/19 07:52 BP 197/115 02/06/19 07:52 Pulse Ox 98 02/06/19 07:52 - Exam Narrative exam: MSE: Appearance: calm Behavior: regular eye contact Speech: regular rate and tone Mood: "okay" Affect: congruent to mood Thought Process: tangential Thought Content: denies SI/HI's and AVH's Motor Activity: lying in bed Cognition: A/O x3 Insight: some confusion Judgment: variable to fair Assessment and Plan Impression: Delirium. Today the patient was calm, but tangential during the assessment. Cr 6.9. DDx: Unspecified Psychosis Recommendation/Plan: Start home medication Abilify 5 mg PO daily. Attempted to discuss possible metabolic side effects of Abilify with the patient. Baseline A1c/Lipid panel ordered for the AM. Recommend Delirium precautions below: 1. Frequently reorient patient and involve him/her in their care (simple explanations of procedures, tests, medications). 2. Lights on and shades open during daytime hours. 3. Write date and goals of care in a visible place. 4. Try to avoid unnecessary interruptions to sleep during nighttime hours. 5. Obtain glasses, hearing aids from home if patient uses these at baseline. 6. Avoid medications that may exacerbate delirium (especially narcotics, benzodiazepines, barbiturates, ambien, lunesta, and medications with excessive anticholinergic properties). Will staff with Dr Maru Castorena.
[2019-02-06] MEDS: cloNIDine 0.1 MG TAB PO SCH (12:58)
--- NOTE | 2019-02-06 14:49 | Progress Note ---
Assessment and Plan Acute encephalopathy -CT head negative -Afebrile, no leukocytosis -Continue Neuro checks -Neurology consulted and ruled out focal seizure, received IV Keppra in the ER -Hold Bacolfen d/t renal function - Possibly underlying psych issues also contributing - Ordered for mental health recommendation Acute unspecified psychosis vs delirium - Started on home medication Abilify 5 mg PO daily, psych following MIKEL on CKD 4 - vasomotor nephropathy versus progression of underlying chronic medical disease -Cr on admission 7.5 -CT abdomen and pelvis showed Indeterminant renal masses - renal US ordered -Continue Hydrate with IVF -Avoid nephrotoxic agents -Renally dose all meds -Nephrology following Hypertensive urgency -BP on admission 204/154 -Hx Hypertension -BP uncontrolled. Continue to adjust medications as needed N/V - resolved, likely from viral gastritis or GERD Hx Right subarachnoid hemorrhage, status post right frontal craniotomy Hx aneurysm, status post clipping -Continue supportive care -Neurology recommended outpatient follow Tobacco abuse -Current every day smoker -Counseled for cessation -Nicotine patch when necessary History of bipolar History of schizophrenia -Mental Health consult pending Thrombocytopenia. - cont to Monitor DVT PPX -SCD's Disposition: When clears by nephrology and mental health. ordered for PT Brief History 58-year-old -[place] male with history of hypertension, schizophrenia, bipolar, subarachnoid hemorrhage status post right frontal craniotomy, right aneurysm clip in, and chronic left-sided hemiparesis who presents to [facility] ED with complaints of generalized weakness, nausea, vomiting and AMS for the past day. Hospitalist Physical Gen: Not in acute distress, lying in bed, HEENT: Normocephalic, atraumatic Neck: supple, no JVD Heart: S1 and S2 reg, no murmurs, rubs or gallop Lungs: Clear to auscultation bilaterally, Abd: soft, non tender, non distended, normal BS, Ext: No edema, no clubbing, no cyanosis Neuro: Awake, alert, left-sided weakness Subjective Date of service: 02/06/19 Principal diagnosis: acute kidney injury Interval history: Patient seen and examined. Medical records and medication list reviewed. No acute event overnight noted by the RN. Patient denies any chest pain or difficulty breathing. Patient is tolerating diet. He remained confused Objective - Constitutional Vitals: Vital Signs - 12hr 02/06/19 02/06/19 02/06/19 04:27 07:52 12:43 Temperature 98 F 98.2 F Pulse Rate 78 74 83 Respiratory 18 18 Rate Blood Pressure 197/115 Blood Pressure 151/99 [Left] O2 Sat by Pulse 94 98 Oximetry 02/06/19 02/06/19 12:45 12:58 Temperature Pulse Rate 83 83 Respiratory Rate Blood Pressure Blood Pressure [Left] O2 Sat by Pulse Oximetry - Labs CBC & Chem 7: 02/05/19 07:00 02/06/19 08:43 Labs: Abnormal lab results 02/06/19 Range/Units 08:43 Chloride 112.0 H (98-107) mmol/L Carbon Dioxide 17 L (22-30) mmol/L BUN 55 H (9-20) mg/dL Creatinine 6.7 H (0.8-1.5) mg/dL
[2019-02-06] MEDS: ARIPiprazole 5 MG TAB PO SCH (19:13)
[2019-02-07] MEDS: hydrALAZINE 20 MG/1 ML INJ IV PRN ×2 (05:22→22:55)
[2019-02-07] MEDS: hydrALAZINE 100 MG TAB PO SCH ×4 (05:22→21:48)
[2019-02-07 08:24] LABS: Chol/HDL Ratio 3.97 %
--- NOTE | 2019-02-07 10:40 | Ultrasound Report ---
ULTRASOUND RENAL INDICATION / CLINICAL INFORMATION: renal mass. COMPARISON: CT abdomen pelvis without contrast dated 02/01/2019 FINDINGS: RIGHT KIDNEY: Length = 9.2 cm. [normal > 9 cm] - Parenchymal Thickness = 1.6 cm. [normal > 1.5 cm] - Echogenicity: Increased - Hydronephrosis: None. - Cyst or mass: Approximately 4 anechoic cysts are identified throughout the right kidney with the la rgest measuring 2.8 cm near the inferior pole. - Stones: None seen. LEFT KIDNEY: Length = 12.5 cm. [normal > 9 cm] - Parenchymal Thickness = 1.7 cm. [normal > 1.5 cm] - Echogenicity: Increased - Hydronephrosis: None. - Cyst or mass: There are approximately 5 anechoic cysts in the left kidney with the largest measurin g 7.9 cm The inferior pole. - Stones: None seen. URINARY BLADDER: No significant abnormality. FREE FLUID: None. ADDITIONAL FINDINGS: None. IMPRESSION: Echogenic kidneys consistent with nonspecific renal parenchymal disease. Bilateral renal cysts as described. No suspicious renal mass is identified. Signer Name: Gustavo Zavala Jr, MD Signed: 02/07/2019 10:36 AM Workstation Name: [id number]
--- NOTE | 2019-02-07 10:51 | Progress Note ---
Assessment and Plan Assessment and plan: Acute encephalopathy -CT head negative -Afebrile, no leukocytosis -Continue Neuro checks -Neurology consulted and ruled out focal seizure, received IV Keppra in the ER -Hold Bacolfen d/t renal function - Possibly underlying psych issues also contributing - Ordered for mental health recommendation Acute unspecified psychosis vs delirium - Started on home medication Abilify 5 mg PO daily, psych following MIKEL on CKD 4 - vasomotor nephropathy versus progression of underlying chronic medical disease -Cr on admission 7.5 -CT abdomen and pelvis showed Indeterminant renal masses - renal US ordered -Continue Hydrate with IVF -Avoid nephrotoxic agents -Renally dose all meds -Nephrology following Hypertensive urgency -BP on admission 204/154 -Hx Hypertension -BP uncontrolled. Continue to adjust medications as needed N/V - resolved, likely from viral gastritis or GERD Hx Right subarachnoid hemorrhage, status post right frontal craniotomy Hx aneurysm, status post clipping -Continue supportive care -Neurology recommended outpatient follow Tobacco abuse -Current every day smoker -Counseled for cessation -Nicotine patch when necessary History of bipolar History of schizophrenia -Mental Health consult pending Thrombocytopenia. - cont to Monitor DVT PPX -SCD's History Interval history: Patient initially presented with nausea, vomiting, generalized weakness, Altered mental status Hospitalist Physical - Physical exam Narrative exam: Gen: Not in acute distress, lying in bed, HEENT: Normocephalic, atraumatic Neck: supple, no JVD Heart: S1 and S2 reg, no murmurs, rubs or gallop Lungs: Clear to auscultation bilaterally, Abd: soft, non tender, non distended, normal BS, Ext: No edema, no clubbing, no cyanosis Neuro: Awake, alert, no focal neurological signs - Constitutional Vitals: Temp Pulse Resp BP Pulse Ox 98.9 F 94 H 20 136/93 100 02/07/19 07:31 02/07/19 05:22 02/07/19 07:31 02/07/19 07:31 02/07/19 07:31 Results - Labs CBC & Chem 7: 02/05/19 07:00 02/07/19 11:02 Labs: Laboratory Last Values WBC 6.1 K/mm3 (4.5-11.0) 02/05/19 07:00 RBC 3.63 M/mm3 (3.65-5.03) L 02/05/19 07:00 Hgb 10.1 gm/dl (11.8-15.2) L 02/05/19 07:00 Hct 31.7 % (35.5-45.6) L 02/05/19 07:00 MCV 87 fl (84-94) 02/05/19 07:00 MCH 28 pg (28-32) 02/05/19 07:00 MCHC 32 % (32-34) 02/05/19 07:00 RDW 14.3 % (13.2-15.2) 02/05/19 07:00 Plt Count 125 K/mm3 (140-440) L 02/05/19 07:00 Lymph % (Auto) 18.2 % (13.4-35.0) 02/02/19 05:53 [place] % (Auto) 7.1 % (0.0-7.3) 02/02/19 05:53 Eos % (Auto) 0.5 % (0.0-4.3) 02/02/19 05:53 Baso % (Auto) 0.4 % (0.0-1.8) 02/02/19 05:53 Lymph # 1.8 K/mm3 (1.2-5.4) 02/02/19 05:53 [place] # 0.7 K/mm3 (0.0-0.8) 02/02/19 05:53 Eos # 0.0 K/mm3 (0.0-0.4) 02/02/19 05:53 Baso # 0.0 K/mm3 (0.0-0.1) 02/02/19 05:53 Seg Neutrophils % 73.8 % (40.0-70.0) H 02/02/19 05:53 Seg Neutrophils # 7.2 K/mm3 (1.8-7.7) 02/02/19 05:53 Sodium 143 mmol/L (137-145) 02/06/19 08:43 Potassium 3.9 mmol/L (3.6-5.0) 02/06/19 08:43 Chloride 112.0 mmol/L (98-107) H 02/06/19 08:43 Carbon Dioxide 17 mmol/L (22-30) L 02/06/19 08:43 Anion Gap 18 mmol/L 02/06/19 08:43 BUN 55 mg/dL (9-20) H 02/06/19 08:43 Creatinine 6.7 mg/dL (0.8-1.5) H 02/06/19 08:43 Estimated GFR 10 ml/min 02/06/19 08:43 BUN/Creatinine Ratio 8 % 02/06/19 08:43 Glucose 78 mg/dL (75-100) 02/06/19 08:43 POC Glucose 134 (70-105) H 02/06/19 21:06 Hemoglobin A1c < 4.0 % (4-6) L 02/07/19 07:41 Calcium 8.7 mg/dL (8.4-10.2) 02/06/19 08:43 Magnesium 2.30 mg/dL (1.7-2.3) 02/01/19 17:52 Ammonia 34.0 umol/L (25-60) 02/01/19 17:52 Total Creatine Kinase 66 units/L (55-170) 02/01/19 17:52 Triglycerides 135 mg/dL (2-149) 02/07/19 07:41 Cholesterol 155 mg/dL (50-199) 02/07/19 07:41 LDL Cholesterol Direct 101 mg/dL (50-130) 02/07/19 07:41 HDL Cholesterol 39 mg/dL (40-59) L 02/07/19 07:41 Cholesterol/HDL Ratio 3.97 % 02/07/19 07:41 TSH 1.990 mlU/mL (0.270-4.200) 02/01/19 17:52 Urine Color Yellow (Yellow) 02/01/19 20:45 Urine Turbidity Slightly-cloudy (Clear) 02/01/19 20:45 Urine pH 5.0 (5.0-7.0) 02/01/19 20:45 Ur Specific [place] 1.013 (1.003-1.030) 02/01/19 20:45 Urine Protein >500 mg/dL (Negative) 02/01/19 20:45 Urine Glucose (UA) Neg mg/dL (Negative) 02/01/19 20:45 Urine Ketones Neg mg/dL (Negative) 02/01/19 20:45 Urine Blood Sm (Negative) 02/01/19 20:45 Urine Nitrite Neg (Negative) 02/01/19 20:45 Urine Bilirubin Neg (Negative) 02/01/19 20:45 Urine Urobilinogen < 2.0 mg/dL (<2.0) 02/01/19 20:45 Ur Leukocyte Esterase Neg (Negative) 02/01/19 20:45 Urine WBC (Auto) 2.0 /HPF (0.0-6.0) 02/01/19 20:45 Urine RBC (Auto) 3.0 /HPF (0.0-6.0) 02/01/19 20:45 U Epithel Cells (Auto) 1.0 /HPF (0-13.0) 02/01/19 20:45 Urine Bacteria (Auto) 1+ /HPF (Negative) 02/01/19 20:45 Urine Mucus Few /HPF 02/01/19 20:45 Urine Yeast (Budding) 1+ /HPF 02/01/19 20:45 Urine Eosinophils None seen (None Seen) 02/02/19 02:30 Urine Creatinine 115.8 mg/dL (0.1-20.0) H 02/02/19 02:30 Urine Sodium 99 mmol/L 02/02/19 02:30 Urine Total Protein 198 mg/dL (5-11.8) H 02/02/19 02:30 Salicylates < 0.3 mg/dL (2.8-20.0) L 02/01/19 17:52 Acetaminophen < 5.0 ug/mL (10.0-30.0) L 02/01/19 17:52 Plasma/Serum Alcohol < 0.01 % (0-0.07) 02/01/19 17:52 Active Medications - Current Medications Current Medications: Generic Name Dose Route Start Last Admin Trade Name Freq PRN Reason Stop Dose Admin Acetaminophen 650 mg 02/01/19 20:23 Tylenol PO Q4H PRN Pain MILD(1-3)/Fever >100.5/QUAN Amlodipine Besylate 10 mg 02/01/19 21:00 02/06/19 12:43 Amlodipine PO 10 mg QDAY ENOC Administration Aripiprazole 5 mg 02/06/19 13:00 02/06/19 19:13 Aripiprazole PO 5 mg QDAY ENOC Administration Carvedilol 6.25 mg 02/01/19 21:21 02/06/19 22:56 Coreg PO 6.25 mg BID ENOC Administration Clonidine HCl 0.2 mg 02/06/19 11:30 02/06/19 22:57 Catapres PO 0.2 mg Q12HR ENOC Administration Docusate Sodium 100 mg 02/01/19 22:00 02/06/19 22:56 Colace PO 100 mg BID ENOC Administration Hydralazine HCl 10 mg 02/01/19 20:12 02/07/19 05:22 Apresoline IV 10 mg Q4HR PRN Administration Blood Pressure Hydralazine HCl 100 mg 02/01/19 21:21 02/07/19 05:22 Apresoline PO Not Given TID ENOC Sodium Chloride 1,000 mls @ 100 mls/hr 02/01/19 21:00 02/05/19 20:57 Nacl 0.9% 1000 Ml IV 100 mls/hr DIRECT ENOC Administration Nicotine 14 mg 02/02/19 10:00 02/06/19 12:40 Habitrol TD 14 mg QDAY ENOC Administration Ondansetron HCl 4 mg 02/01/19 20:23 Zofran IV Q8H PRN Nausea And Vomiting Pantoprazole Sodium 40 mg 02/06/19 11:30 02/06/19 12:43 Protonix PO 40 mg QDAY ENOC Administration Sodium Chloride 10 ml 02/01/19 22:00 02/06/19 22:58 Sodium Chloride Flush Syringe 10 Ml IV 10 ml BID ENOC Administration Sodium Chloride 10 ml 02/01/19 20:23 02/04/19 05:25 Sodium Chloride Flush Syringe 10 Ml IV 10 ml PRN PRN Administration LINE FLUSH Nutrition/Malnutrition Assess - Dietary Evaluation Nutrition/Malnutrition Findings: Nutrition Notes Start: 02/03/19 09:42 Freq: Status: Active Protocol: Document 02/03/19 09:42 AP (Rec: 02/03/19 10:20 AP [id number]) Co-Sign 02/03/19 09:42 LM Nutrition Notes Need for Assessment 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 RN consult for skin risk, opal score of 13. No edema or wasting observed, no wound documentation. Pt consumed 100 % of bfast tray. Pt difficult to understand but states he likes food. Burn Absent Trauma Absent Current % PO Good (75-100%) Minimum of two criteria No physical signs of malnutrition #1 Nutrition Diagnosis Predicted suboptimal energy intake Etiology Bi-polar, schizophrenia As Evidenced by Signs and Symptoms Pt unable to consume food PO during AMS episodes. Is patient on ventilator? No Is Patient Ambulatory and/or Out of Bed Yes REE-([place] or-ambulatory/OOB) [ 1895.075 [id number]] [facility] Additional Notes PRO needs: 56-70g/day (0.8-1g/ kg) Fluid needs: 1m/kcal or per MD Nutrition Intervention Change Diet Order: Cardiac/renal diet Goal #1 Pt meet >80% kcal/PRO needs from PO intakes. Anticipated Discharge Needs: Cardiac/Renal diet Revisit per MD consult or patient Sign Off request:
[2019-02-07] MEDS: NICOTINE 14 MG/24 HR PATCH TD SCH (10:54)
[2019-02-07] MEDS: amLODIPine 10 MG TAB PO SCH (10:55)
[2019-02-07] MEDS: DOCUSATE SODIUM 100 MG CAP PO SCH ×2 (10:55→21:48)
[2019-02-07] MEDS: PANTOPRAZOLE 40 MG TAB PO SCH (10:55)
[2019-02-07] MEDS: carvediloL 6.25 MG TAB PO SCH ×2 (10:56→21:48)
[2019-02-07] MEDS: cloNIDine 0.2 MG TAB PO SCH ×2 (10:56→21:49)
[2019-02-07] MEDS: ARIPiprazole 5 MG TAB PO SCH (10:57)
--- NOTE | 2019-02-07 11:34 | Progress Note ---
Subjective - Reason for Consult Consult date: 02/07/19 Reason for consult: Psychiatry Follow-up - Chief Complaint Chief complaint: "Hello" 58 y.o. AA male who presented to the ER for AMS. Today the patient was calm during the assessment. He wasn't as confused as he was yesterday. His thought process was circumstantial. He stated that he remembered speaking to me the provider (yesterday). He denies SI/HI's and AVH's. No indications of side effects from his medication. The patient ate his breakfast without assistance. Mental Status Exam - Vital signs Last Vital Signs Temp 98.9 F 02/07/19 07:31 Pulse 88 02/07/19 10:56 Resp 20 02/07/19 07:31 BP 136/93 02/07/19 10:56 Pulse Ox 100 02/07/19 07:31 - Exam Narrative exam: MSE: Appearance: calm, cooperative Behavior: regular eye contact Speech: regular rate and tone Mood: "okay" Affect: congruent to mood Thought Process: somewhat tangent Thought Content: denies SI/HI's and AVH's Motor Activity: lying in bed Cognition: A/O x3 Insight: variable Judgment: fair Assessment and Plan Impression: Delirium. Today the patient was calm during the assessment. Cr 6.7. DDx: Unspecified Psychosis Recommendation/Plan: Continue home medication Abilify 5 mg PO daily. Attempted to discuss possible metabolic side effects of Abilify with the patient. Psy sign off. Recommend Delirium precautions below: 1. Frequently reorient patient and involve him/her in their care (simple explanations of procedures, tests, medications). 2. Lights on and shades open during daytime hours. 3. Write date and goals of care in a visible place. 4. Try to avoid unnecessary interruptions to sleep during nighttime hours. 5. Obtain glasses, hearing aids from home if patient uses these at baseline. 6. Avoid medications that may exacerbate delirium (especially narcotics, benzodiazepines, barbiturates, ambien, lunesta, and medications with excessive anticholinergic properties). Dispo: The patient can follow up with [facility] for outpatient psy services. Will staff with Dr Maru Castorena.
[2019-02-07 11:40] LABS: Calcium 8.4 mg/dL (8.4-10.2)
--- NOTE | 2019-02-07 12:18 | Progress Note ---
Assessment and Plan Assessment: 1. Acute kidney injury 2. Proteinuria 3. Hypertension 4. Schizoaffective disorder 5. Anemia Plan: - Suspect patient has chronic kidney disease stage is unknown. It's unclear if patient has acute kidney injury superimposed on chronic kidney disease or kidney disease progressing to end-stage renal disease. Renal function marginally improved on IVF, pt remains non-oliguric. Given developing hyperchloremic met acidosis changed IVF to D5 1/2 NS. Follow-up electrolytes and renal function. Discussed with family about patient's condition and possible need for dialysis in the future. Hopefully kidney function status improves further as with his psychiatric problems dialysis will be quite challenging. No acute indication for renal replacement therapy at present - Nonnephrotic range proteinuria. Continue management - Monitor BP on current medications - follow Psychiatry recommendations for treatment of Schizoaffective disorder - Follow-up hemoglobin. Subjective Date of service: 02/07/19 Principal diagnosis: acute kidney injury Interval history: Pt awake, confused, disoriented, in no acute respiratory distress Objective - Vital Signs Vital signs: Vital Signs - 12hr 02/07/19 02/07/19 02/07/19 04:09 05:22 07:31 Temperature 98.6 F 98.9 F Pulse Rate 94 H 94 H Respiratory 19 20 Rate Blood Pressure 166/120 166/120 136/93 O2 Sat by Pulse 100 100 Oximetry 02/07/19 02/07/19 02/07/19 10:55 10:56 11:11 Temperature 97.9 F Pulse Rate 88 88 90 Respiratory 19 Rate Blood Pressure 136/93 136/93 166/114 O2 Sat by Pulse 100 Oximetry - General Appearance General appearance: well-developed, well-nourished, appears stated age EENT: ATNC, PERRL, mucous membranes moist Neck: no JVD Respiratory: Present: Clear to Ascultation Cardiology: regular, S1S2 Gastrointestinal: normoactive bowel sounds Integumentary: no rash Neurologic: no focal deficit, CN 3-12 intact Psychiatric: paranoid ideation - Lab 02/05/19 07:00 02/07/19 11:02 Most recent lab results Calcium 8.4 mg/dL (8.4-10.2) 02/07/19 11:02 Magnesium 2.30 mg/dL (1.7-2.3) 02/01/19 17:52 Urine Creatinine 115.8 mg/dL (0.1-20.0) H 02/02/19 02:30 Urine Sodium 99 mmol/L 02/02/19 02:30 Urine Total Protein 198 mg/dL (5-11.8) H 02/02/19 02:30 Medications & Allergies - Medications Allergies/Adverse Reactions: Allergies No Known Allergies Allergy (Unverified 04/17/17 13:03) Home Medications: Home Medications Medication Instructions Recorded Confirmed Last Taken Type ARIPiprazole [Abilify] 20 mg PO QDAY 02/03/19 02/03/19 1 Day Ago History ~02/02/19 Losartan/Hydrochlorothiazide 1 each PO QDAY 02/03/19 02/03/19 Unknown History [Losartan-Hctz 100-25 mg Tab] Active Medications: Generic Name Dose Route Start Last Admin Trade Name Freq PRN Reason Stop Dose Admin Acetaminophen 650 mg 02/01/19 20:23 Tylenol PO Q4H PRN Pain MILD(1-3)/Fever >100.5/QUAN Amlodipine Besylate 10 mg 02/01/19 21:00 02/07/19 10:55 Amlodipine PO 10 mg QDAY ENOC Administration Aripiprazole 5 mg 02/06/19 13:00 02/07/19 10:57 Aripiprazole PO 5 mg QDAY ENOC Administration Carvedilol 6.25 mg 02/01/19 21:21 02/07/19 10:56 Coreg PO 6.25 mg BID ENOC Administration Clonidine HCl 0.2 mg 02/06/19 11:30 02/07/19 10:56 Catapres PO 0.2 mg Q12HR ENOC Administration Docusate Sodium 100 mg 02/01/19 22:00 02/07/19 10:55 Colace PO 100 mg BID ENOC Administration Hydralazine HCl 10 mg 02/01/19 20:12 02/07/19 05:22 Apresoline IV 10 mg Q4HR PRN Administration Blood Pressure Hydralazine HCl 100 mg 02/01/19 21:21 02/07/19 10:55 Apresoline PO 100 mg TID ENOC Administration Nicotine 14 mg 02/02/19 10:00 02/07/19 10:54 Habitrol TD 14 mg QDAY ENOC Administration Ondansetron HCl 4 mg 02/01/19 20:23 Zofran IV Q8H PRN Nausea And Vomiting Pantoprazole Sodium 40 mg 02/06/19 11:30 02/07/19 10:55 Protonix PO 40 mg QDAY ENOC Administration Sodium Chloride 10 ml 02/01/19 22:00 02/07/19 10:57 Sodium Chloride Flush Syringe 10 Ml IV 10 ml BID ENOC Administration Sodium Chloride 10 ml 02/01/19 20:23 02/04/19 05:25 Sodium Chloride Flush Syringe 10 Ml IV 10 ml PRN PRN Administration LINE FLUSH
[2019-02-07] MEDS: D5W/0.45% NACL 1,000 ML IV SCH (17:29)
[2019-02-07] MEDS: ACETAMINOPHEN 325 MG TAB PO PRN (22:45)
[2019-02-08 05:00] LABS: Calcium 7.9 mg/dL (8.4-10.2)
[2019-02-08] MEDS: hydrALAZINE 100 MG TAB PO SCH ×3 (08:02→20:45)
--- NOTE | 2019-02-08 09:39 | Progress Note ---
Assessment and Plan Assessment: 1. Acute kidney injury 2. Proteinuria 3. Hypertension 4. Schizoaffective disorder 5. Anemia Plan: - Suspect patient has advanced chronic kidney disease. It's unclear if patient has acute kidney injury superimposed on chronic kidney disease or kidney disease progressing to end-stage renal disease. Renal function unchanged, pt remains non-oliguric. Given developing hyperchloremic met acidosis changed IVF to D5 1/2 NS. Follow-up electrolytes and renal function. Discussed with family about patient's condition and possible need for dialysis in the future. Hopefully kidney function status improves further as with his psychiatric problems dialysis will be quite challenging. No acute indication for renal replacement therapy at present. stable for discharge from renal stand point with outpatient CKD f/u. - Nonnephrotic range proteinuria. Continue management - Monitor BP on current medications - follow Psychiatry recommendations for treatment of Schizoaffective disorder - Follow-up hemoglobin. Subjective Date of service: 02/08/19 Principal diagnosis: acute kidney injury Interval history: Pt awake, confused, disoriented, in no acute respiratory distress Objective - Vital Signs Vital signs: Vital Signs - 12hr 02/07/19 02/07/19 02/07/19 21:48 21:49 22:00 Temperature Pulse Rate 94 H 94 H 86 Respiratory Rate Blood Pressure 146/91 146/91 O2 Sat by Pulse Oximetry 02/07/19 02/07/19 02/07/19 22:45 22:55 23:45 Temperature Pulse Rate 86 Respiratory 20 20 Rate Blood Pressure 167/108 O2 Sat by Pulse Oximetry 02/08/19 02/08/19 02/08/19 04:15 07:44 08:31 Temperature 98.0 F 97.9 F Pulse Rate 73 72 Respiratory 18 18 Rate Blood Pressure 133/85 141/93 O2 Sat by Pulse 100 97 97 Oximetry - General Appearance General appearance: well-developed, well-nourished, appears stated age EENT: ATNC, PERRL, mucous membranes moist Neck: no JVD Respiratory: Present: Clear to Ascultation Cardiology: regular, S1S2 Gastrointestinal: normoactive bowel sounds Integumentary: no rash Neurologic: no focal deficit, alert and oriented x3, strength 5/5, CN 3-12 intact Psychiatric: mood/affect appropriate, cooperative - Lab 02/05/19 07:00 02/08/19 04:16 Most recent lab results Calcium 7.9 mg/dL (8.4-10.2) L 02/08/19 04:16 Magnesium 2.30 mg/dL (1.7-2.3) 02/01/19 17:52 Urine Creatinine 115.8 mg/dL (0.1-20.0) H 02/02/19 02:30 Urine Sodium 99 mmol/L 02/02/19 02:30 Urine Total Protein 198 mg/dL (5-11.8) H 02/02/19 02:30 Medications & Allergies - Medications Allergies/Adverse Reactions: Allergies No Known Allergies Allergy (Unverified 04/17/17 13:03) Home Medications: Home Medications Medication Instructions Recorded Confirmed Last Taken Type ARIPiprazole [Abilify] 20 mg PO QDAY 02/03/19 02/03/19 1 Day Ago History ~02/02/19 Losartan/Hydrochlorothiazide 1 each PO QDAY 02/03/19 02/03/19 Unknown History [Losartan-Hctz 100-25 mg Tab] Active Medications: Generic Name Dose Route Start Last Admin Trade Name Freq PRN Reason Stop Dose Admin Acetaminophen 650 mg 02/01/19 20:23 02/07/19 22:45 Tylenol PO 650 mg Q4H PRN Administration Pain MILD(1-3)/Fever >100.5/QUAN Amlodipine Besylate 10 mg 02/01/19 21:00 02/07/19 10:55 Amlodipine PO 10 mg QDAY ENOC Administration Aripiprazole 5 mg 02/06/19 13:00 02/07/19 10:57 Aripiprazole PO 5 mg QDAY ENOC Administration Carvedilol 6.25 mg 02/01/19 21:21 02/07/19 21:48 Coreg PO 6.25 mg BID ENOC Administration Clonidine HCl 0.2 mg 02/06/19 11:30 02/07/19 21:49 Catapres PO 0.2 mg Q12HR ENOC Administration Docusate Sodium 100 mg 02/01/19 22:00 02/07/19 21:48 Colace PO 100 mg BID ENOC Administration Hydralazine HCl 10 mg 02/01/19 20:12 02/07/19 22:55 Apresoline IV 10 mg Q4HR PRN Administration Blood Pressure Hydralazine HCl 100 mg 02/01/19 21:21 02/08/19 08:02 Apresoline PO 100 mg TID ENOC Administration Dextrose/Sodium Chloride 1,000 mls @ 75 mls/hr 02/07/19 13:00 02/07/19 17:29 D5/0.45ns IV 75 mls/hr DIRECT ENOC Administration Nicotine 14 mg 02/02/19 10:00 02/07/19 10:54 Habitrol TD 14 mg QDAY ENOC Administration Ondansetron HCl 4 mg 02/01/19 20:23 02/07/19 22:45 Zofran IV 4 mg Q8H PRN Administration Nausea And Vomiting Pantoprazole Sodium 40 mg 02/06/19 11:30 02/07/19 10:55 Protonix PO 40 mg QDAY ENOC Administration Sodium Chloride 10 ml 02/01/19 22:00 02/07/19 21:50 Sodium Chloride Flush Syringe 10 Ml IV 10 ml BID ENOC Administration Sodium Chloride 10 ml 02/01/19 20:23 02/04/19 05:25 Sodium Chloride Flush Syringe 10 Ml IV 10 ml PRN PRN Administration LINE FLUSH
[2019-02-08] MEDS: carvediloL 6.25 MG TAB PO SCH ×3 (10:03→21:47)
[2019-02-08] MEDS: NICOTINE 14 MG/24 HR PATCH TD SCH (10:03)
[2019-02-08] MEDS: DOCUSATE SODIUM 100 MG CAP PO SCH ×3 (10:03→21:47)
[2019-02-08] MEDS: PANTOPRAZOLE 40 MG TAB PO SCH (10:04)
[2019-02-08] MEDS: cloNIDine 0.2 MG TAB PO SCH ×3 (10:04→21:46)
[2019-02-08] MEDS: amLODIPine 10 MG TAB PO SCH (10:04)
[2019-02-08] MEDS: ARIPiprazole 5 MG TAB PO SCH (10:20)
--- NOTE | 2019-02-08 12:01 | Progress Note ---
Assessment and Plan Assessment and plan: Acute encephalopathy -CT head negative -Afebrile, no leukocytosis -Continue Neuro checks -Neurology consulted and ruled out focal seizure, received IV Keppra in the ER -Hold Bacolfen d/t renal function - Possibly underlying psych issues also contributing - Ordered for mental health recommendation Acute unspecified psychosis vs delirium - Started on home medication Abilify 5 mg PO daily, psych following MIKEL on CKD 4 - vasomotor nephropathy versus progression of underlying chronic medical disease -Cr on admission 7.5 -CT abdomen and pelvis showed Indeterminant renal masses - renal US ordered -Continue Hydrate with IVF -Avoid nephrotoxic agents -Renally dose all meds -Nephrology following Agitation haldol prn Hypertensive urgency -BP on admission 204/154 -Hx Hypertension -BP uncontrolled. Continue to adjust medications as needed N/V - resolved, likely from viral gastritis or GERD Hx Right subarachnoid hemorrhage, status post right frontal craniotomy Hx aneurysm, status post clipping -Continue supportive care -Neurology recommended outpatient follow Tobacco abuse -Current every day smoker -Counseled for cessation -Nicotine patch when necessary History of bipolar History of schizophrenia -Mental Health consult pending Thrombocytopenia. - cont to Monitor DVT PPX -SCD's History Interval history: Patient initially presented with nausea, vomiting, generalized weakness, Altered mental status Agitation today Hospitalist Physical - Physical exam Narrative exam: Gen: Not in acute distress, lying in bed, HEENT: Normocephalic, atraumatic Neck: supple, no JVD Heart: S1 and S2 reg, no murmurs, rubs or gallop Lungs: Clear to auscultation bilaterally, Abd: soft, non tender, non distended, normal BS, Ext: No edema, no clubbing, no cyanosis Neuro: Awake, alert, no focal neurological signs - Constitutional Vitals: Temp Pulse Resp BP Pulse Ox 97.9 F 80 18 141/93 97 02/08/19 07:44 02/08/19 10:04 02/08/19 07:44 02/08/19 10:04 02/08/19 08:31 Results - Labs CBC & Chem 7: 02/05/19 07:00 02/08/19 04:16 Labs: Laboratory Last Values WBC 6.1 K/mm3 (4.5-11.0) 02/05/19 07:00 RBC 3.63 M/mm3 (3.65-5.03) L 02/05/19 07:00 Hgb 10.1 gm/dl (11.8-15.2) L 02/05/19 07:00 Hct 31.7 % (35.5-45.6) L 02/05/19 07:00 MCV 87 fl (84-94) 02/05/19 07:00 MCH 28 pg (28-32) 02/05/19 07:00 MCHC 32 % (32-34) 02/05/19 07:00 RDW 14.3 % (13.2-15.2) 02/05/19 07:00 Plt Count 125 K/mm3 (140-440) L 02/05/19 07:00 Lymph % (Auto) 18.2 % (13.4-35.0) 02/02/19 05:53 [place] % (Auto) 7.1 % (0.0-7.3) 02/02/19 05:53 Eos % (Auto) 0.5 % (0.0-4.3) 02/02/19 05:53 Baso % (Auto) 0.4 % (0.0-1.8) 02/02/19 05:53 Lymph # 1.8 K/mm3 (1.2-5.4) 02/02/19 05:53 [place] # 0.7 K/mm3 (0.0-0.8) 02/02/19 05:53 Eos # 0.0 K/mm3 (0.0-0.4) 02/02/19 05:53 Baso # 0.0 K/mm3 (0.0-0.1) 02/02/19 05:53 Seg Neutrophils % 73.8 % (40.0-70.0) H 02/02/19 05:53 Seg Neutrophils # 7.2 K/mm3 (1.8-7.7) 02/02/19 05:53 Sodium 142 mmol/L (137-145) 02/08/19 04:16 Potassium 3.8 mmol/L (3.6-5.0) 02/08/19 04:16 Chloride 113.2 mmol/L (98-107) H 02/08/19 04:16 Carbon Dioxide 16 mmol/L (22-30) L 02/08/19 04:16 Anion Gap 17 mmol/L 02/08/19 04:16 BUN 55 mg/dL (9-20) H 02/08/19 04:16 Creatinine 6.6 mg/dL (0.8-1.5) H 02/08/19 04:16 Estimated GFR 10 ml/min 02/08/19 04:16 BUN/Creatinine Ratio 8 % 02/08/19 04:16 Glucose 107 mg/dL (75-100) H 02/08/19 04:16 POC Glucose 134 (70-105) H 02/06/19 21:06 Hemoglobin A1c < 4.0 % (4-6) L 02/07/19 07:41 Calcium 7.9 mg/dL (8.4-10.2) L 02/08/19 04:16 Magnesium 2.30 mg/dL (1.7-2.3) 02/01/19 17:52 Ammonia 34.0 umol/L (25-60) 02/01/19 17:52 Total Creatine Kinase 66 units/L (55-170) 02/01/19 17:52 Triglycerides 135 mg/dL (2-149) 02/07/19 07:41 Cholesterol 155 mg/dL (50-199) 02/07/19 07:41 LDL Cholesterol Direct 101 mg/dL (50-130) 02/07/19 07:41 HDL Cholesterol 39 mg/dL (40-59) L 02/07/19 07:41 Cholesterol/HDL Ratio 3.97 % 02/07/19 07:41 TSH 1.990 mlU/mL (0.270-4.200) 02/01/19 17:52 Urine Color Yellow (Yellow) 02/01/19 20:45 Urine Turbidity Slightly-cloudy (Clear) 02/01/19 20:45 Urine pH 5.0 (5.0-7.0) 02/01/19 20:45 Ur Specific [place] 1.013 (1.003-1.030) 02/01/19 20:45 Urine Protein >500 mg/dL (Negative) 02/01/19 20:45 Urine Glucose (UA) Neg mg/dL (Negative) 02/01/19 20:45 Urine Ketones Neg mg/dL (Negative) 02/01/19 20:45 Urine Blood Sm (Negative) 02/01/19 20:45 Urine Nitrite Neg (Negative) 02/01/19 20:45 Urine Bilirubin Neg (Negative) 02/01/19 20:45 Urine Urobilinogen < 2.0 mg/dL (<2.0) 02/01/19 20:45 Ur Leukocyte Esterase Neg (Negative) 02/01/19 20:45 Urine WBC (Auto) 2.0 /HPF (0.0-6.0) 02/01/19 20:45 Urine RBC (Auto) 3.0 /HPF (0.0-6.0) 02/01/19 20:45 U Epithel Cells (Auto) 1.0 /HPF (0-13.0) 02/01/19 20:45 Urine Bacteria (Auto) 1+ /HPF (Negative) 02/01/19 20:45 Urine Mucus Few /HPF 02/01/19 20:45 Urine Yeast (Budding) 1+ /HPF 02/01/19 20:45 Urine Eosinophils None seen (None Seen) 02/02/19 02:30 Urine Creatinine 115.8 mg/dL (0.1-20.0) H 02/02/19 02:30 Urine Sodium 99 mmol/L 02/02/19 02:30 Urine Total Protein 198 mg/dL (5-11.8) H 02/02/19 02:30 Salicylates < 0.3 mg/dL (2.8-20.0) L 02/01/19 17:52 Acetaminophen < 5.0 ug/mL (10.0-30.0) L 02/01/19 17:52 Plasma/Serum Alcohol < 0.01 % (0-0.07) 02/01/19 17:52 Active Medications - Current Medications Current Medications: Generic Name Dose Route Start Last Admin Trade Name Freq PRN Reason Stop Dose Admin Acetaminophen 650 mg 02/01/19 20:23 02/07/19 22:45 Tylenol PO 650 mg Q4H PRN Administration Pain MILD(1-3)/Fever >100.5/QUAN Amlodipine Besylate 10 mg 02/01/19 21:00 02/08/19 10:04 Amlodipine PO 10 mg QDAY ENOC Administration Aripiprazole 5 mg 02/06/19 13:00 02/08/19 10:20 Aripiprazole PO 5 mg QDAY ENOC Administration Carvedilol 6.25 mg 02/01/19 21:21 02/08/19 10:03 Coreg PO 6.25 mg BID ENOC Administration Clonidine HCl 0.2 mg 02/06/19 11:30 02/08/19 10:04 Catapres PO 0.2 mg Q12HR NEOC Administration Docusate Sodium 100 mg 02/01/19 22:00 02/08/19 10:03 Colace PO 100 mg BID ENOC Administration Haloperidol Lactate 5 mg 02/08/19 11:09 Haldol IM Q6H PRN Agitation Hydralazine HCl 10 mg 02/01/19 20:12 02/07/19 22:55 Apresoline IV 10 mg Q4HR PRN Administration Blood Pressure Hydralazine HCl 100 mg 02/01/19 21:21 02/08/19 08:02 Apresoline PO 100 mg TID ENOC Administration Dextrose/Sodium Chloride 1,000 mls @ 75 mls/hr 02/07/19 13:00 02/07/19 17:29 D5/0.45ns IV 75 mls/hr DIRECT ENOC Administration Nicotine 14 mg 02/02/19 10:00 02/08/19 10:03 Habitrol TD 14 mg QDAY ENOC Administration Ondansetron HCl 4 mg 02/01/19 20:23 02/07/19 22:45 Zofran IV 4 mg Q8H PRN Administration Nausea And Vomiting Pantoprazole Sodium 40 mg 02/06/19 11:30 02/08/19 10:04 Protonix PO 40 mg QDAY ENOC Administration Sodium Chloride 10 ml 02/01/19 22:00 02/08/19 10:05 Sodium Chloride Flush Syringe 10 Ml IV 10 ml BID ENOC Administration Sodium Chloride 10 ml 02/01/19 20:23 02/04/19 05:25 Sodium Chloride Flush Syringe 10 Ml IV 10 ml PRN PRN Administration LINE FLUSH Nutrition/Malnutrition Assess - Dietary Evaluation Nutrition/Malnutrition Findings: Nutrition Notes Start: 02/03/19 09:42 Freq: Status: Active Protocol: Document 02/08/19 10:03 LP (Rec: 02/08/19 10:05 LP [id number]) Nutrition Notes Need for Assessment generated from: LOS Initial or Follow up Brief Note Subjective/Other Information Screen for LOS. Pt continues eating well. Consuming at least 75% of meals. Nutrition Intervention Revisit per MD consult or patient Sign Off request:
[2019-02-08] MEDS: D5W/0.45% NACL 1,000 ML IV SCH (12:04)
[2019-02-08] MEDS: ACETAMINOPHEN 325 MG TAB PO PRN (20:44)
[2019-02-08] MEDS: HALOPERIDOL LACTATE 5 MG/1 ML INJ IM PRN (20:45)
[2019-02-09] MEDS: D5W/0.45% NACL 1,000 ML IV SCH (02:12)
[2019-02-09] MEDS: hydrALAZINE 100 MG TAB PO SCH ×3 (09:38→21:02)
[2019-02-09] MEDS: cloNIDine 0.2 MG TAB PO SCH ×2 (09:38→21:01)
[2019-02-09] MEDS: PANTOPRAZOLE 40 MG TAB PO SCH (09:38)
[2019-02-09] MEDS: amLODIPine 10 MG TAB PO SCH (09:39)
[2019-02-09] MEDS: ARIPiprazole 5 MG TAB PO SCH (09:39)
[2019-02-09] MEDS: carvediloL 6.25 MG TAB PO SCH ×2 (09:39→21:02)
[2019-02-09] MEDS: NICOTINE 14 MG/24 HR PATCH TD SCH (09:39)
[2019-02-09] MEDS: DOCUSATE SODIUM 100 MG CAP PO SCH ×2 (09:40→21:03)
--- NOTE | 2019-02-09 11:19 | Progress Note ---
Assessment and Plan - Patient Problems (1) Renal failure Current Visit: Yes Status: Chronic Qualifiers: Renal failure chronicity: unspecified chronicity Qualified Code(s): N19 - Unspecified kidney failure Plan to address problem: Patient has significant renal failure. Discussed with primary attending, and based on his significant psychiatric issues he is not an ideal candidate for renal replacement therapy/dialysis. Would recommend conservative management at this point. (2) Hypertensive chronic kidney disease with stage 1 through stage 4 chronic kidney disease, or unspecified chronic kidney disease Current Visit: Yes Status: Chronic Plan to address problem: Continue to monitor blood pressures under current regimen. (3) Proteinuria Current Visit: Yes Status: Acute Plan to address problem: Non nephrotic range proteinuria. Will continue to monitor. (4) Schizoaffective disorder Current Visit: Yes Status: Chronic Plan to address problem: Management per primary attending Subjective Date of service: 02/09/19 Principal diagnosis: acute kidney injury Interval history: No acute changes overnight. Objective - Vital Signs Vital signs: Vital Signs - 12hr 02/08/19 02/09/19 02/09/19 23:53 00:00 04:00 Temperature 98.4 F 98.1 F Pulse Rate 75 70 77 Respiratory 18 18 Rate Blood Pressure 131/90 146/96 O2 Sat by Pulse 97 96 Oximetry 02/09/19 10:00 Temperature Pulse Rate 73 Respiratory Rate Blood Pressure O2 Sat by Pulse Oximetry - General Appearance General appearance: appears stated age, chronically ill EENT: ATNC Neck: no JVD, no thyromegaly Respiratory: Present: Clear to Ascultation Cardiology: regular, S1S2 Gastrointestinal: normal, normoactive bowel sounds Integumentary: no rash Neurologic: confused, disoriented Musculoskeletal: deferred Psychiatric: agitated - Lab 02/05/19 07:00 02/08/19 04:16 Most recent lab results Calcium 7.9 mg/dL (8.4-10.2) L 02/08/19 04:16 Magnesium 2.30 mg/dL (1.7-2.3) 02/01/19 17:52 Urine Creatinine 115.8 mg/dL (0.1-20.0) H 02/02/19 02:30 Urine Sodium 99 mmol/L 02/02/19 02:30 Urine Total Protein 198 mg/dL (5-11.8) H 02/02/19 02:30 - Allied health notes Allied health notes reviewed: nursing Medications & Allergies - Medications Allergies/Adverse Reactions: Allergies No Known Allergies Allergy (Unverified 04/17/17 13:03) Home Medications: Home Medications Medication Instructions Recorded Confirmed Last Taken Type ARIPiprazole [Abilify] 20 mg PO QDAY 02/03/19 02/03/19 1 Day Ago History ~02/02/19 Losartan/Hydrochlorothiazide 1 each PO QDAY 02/03/19 02/03/19 Unknown History [Losartan-Hctz 100-25 mg Tab] Active Medications: Generic Name Dose Route Start Last Admin Trade Name Freq PRN Reason Stop Dose Admin Acetaminophen 650 mg 02/01/19 20:23 02/08/19 20:44 Tylenol PO 650 mg Q4H PRN Administration Pain MILD(1-3)/Fever >100.5/QUAN Amlodipine Besylate 10 mg 02/01/19 21:00 02/09/19 09:39 Amlodipine PO 10 mg QDAY ENOC Administration Aripiprazole 5 mg 02/06/19 13:00 02/09/19 09:39 Aripiprazole PO 5 mg QDAY ENCO Administration Carvedilol 6.25 mg 02/01/19 21:21 02/09/19 09:39 Coreg PO 6.25 mg BID ENOC Administration Clonidine HCl 0.2 mg 02/06/19 11:30 02/09/19 09:38 Catapres PO 0.2 mg Q12HR ENOC Administration Docusate Sodium 100 mg 02/01/19 22:00 02/09/19 09:40 Colace PO 100 mg BID ENOC Administration Haloperidol Lactate 5 mg 02/08/19 11:09 02/08/19 20:45 Haldol IM 5 mg Q6H PRN Administration Agitation Hydralazine HCl 10 mg 02/01/19 20:12 02/07/19 22:55 Apresoline IV 10 mg Q4HR PRN Administration Blood Pressure Hydralazine HCl 100 mg 02/01/19 21:21 02/09/19 09:38 Apresoline PO 100 mg TID ENOC Administration Dextrose/Sodium Chloride 1,000 mls @ 75 mls/hr 02/07/19 13:00 02/09/19 02:12 D5/0.45ns IV 75 mls/hr DIRECT ENOC Administration Nicotine 14 mg 02/02/19 10:00 02/09/19 09:39 Habitrol TD 14 mg QDAY ENOC Administration Ondansetron HCl 4 mg 02/01/19 20:23 02/07/19 22:45 Zofran IV 4 mg Q8H PRN Administration Nausea And Vomiting Pantoprazole Sodium 40 mg 02/06/19 11:30 02/09/19 09:38 Protonix PO 40 mg QDAY ENOC Administration Sodium Chloride 10 ml 02/01/19 22:00 02/09/19 09:40 Sodium Chloride Flush Syringe 10 Ml IV 10 ml BID ENOC Administration Sodium Chloride 10 ml 02/01/19 20:23 02/04/19 05:25 Sodium Chloride Flush Syringe 10 Ml IV 10 ml PRN PRN Administration LINE FLUSH
--- NOTE | 2019-02-09 11:53 | Progress Note ---
Assessment and Plan Assessment and plan: Acute encephalopathy -CT head negative -Afebrile, no leukocytosis -Continue Neuro checks -Neurology consulted and ruled out focal seizure, received IV Keppra in the ER -Hold Bacolfen d/t renal function - Possibly underlying psych issues also contributing - Ordered for mental health recommendation Acute unspecified psychosis vs delirium - Started on home medication Abilify 5 mg PO daily, psych following MIKEL on CKD 4 - vasomotor nephropathy versus progression of underlying chronic medical disease -Cr on admission 7.5 -CT abdomen and pelvis showed Indeterminant renal masses -Continue Hydrate with IVF -Avoid nephrotoxic agents -Renally dose all meds -Nephrology following -Discussed with nephrology Agitation haldol prn Hypertensive urgency -BP on admission 204/154 -Hx Hypertension -BP uncontrolled. Continue to adjust medications as needed N/V - resolved, likely from viral gastritis or GERD Hx Right subarachnoid hemorrhage, status post right frontal craniotomy Hx aneurysm, status post clipping -Continue supportive care -Neurology recommended outpatient follow Tobacco abuse -Current every day smoker -Counseled for cessation -Nicotine patch when necessary History of bipolar History of schizophrenia -Mental Health consult pending Thrombocytopenia. - cont to Monitor DVT PPX -SCD's Awaiting SNF placement History Interval history: Patient initially presented with nausea, vomiting, generalized weakness, Altered mental status Agitation today Hospitalist Physical - Physical exam Narrative exam: Gen: Not in acute distress, lying in bed, HEENT: Normocephalic, atraumatic Neck: supple, no JVD Heart: S1 and S2 reg, no murmurs, rubs or gallop Lungs: Clear to auscultation bilaterally, Abd: soft, non tender, non distended, normal BS, Ext: No edema, no clubbing, no cyanosis Neuro: Awake, alert, no focal neurological signs - Constitutional Vitals: Temp Pulse Resp BP Pulse Ox 98.1 F 73 18 146/96 96 02/09/19 04:00 02/09/19 10:00 02/09/19 04:00 02/09/19 04:00 02/09/19 04:00 Results - Labs CBC & Chem 7: 02/05/19 07:00 02/08/19 04:16 Labs: Laboratory Last Values WBC 6.1 K/mm3 (4.5-11.0) 02/05/19 07:00 RBC 3.63 M/mm3 (3.65-5.03) L 02/05/19 07:00 Hgb 10.1 gm/dl (11.8-15.2) L 02/05/19 07:00 Hct 31.7 % (35.5-45.6) L 02/05/19 07:00 MCV 87 fl (84-94) 02/05/19 07:00 MCH 28 pg (28-32) 02/05/19 07:00 MCHC 32 % (32-34) 02/05/19 07:00 RDW 14.3 % (13.2-15.2) 02/05/19 07:00 Plt Count 125 K/mm3 (140-440) L 02/05/19 07:00 Lymph % (Auto) 18.2 % (13.4-35.0) 02/02/19 05:53 [place] % (Auto) 7.1 % (0.0-7.3) 02/02/19 05:53 Eos % (Auto) 0.5 % (0.0-4.3) 02/02/19 05:53 Baso % (Auto) 0.4 % (0.0-1.8) 02/02/19 05:53 Lymph # 1.8 K/mm3 (1.2-5.4) 02/02/19 05:53 [place] # 0.7 K/mm3 (0.0-0.8) 02/02/19 05:53 Eos # 0.0 K/mm3 (0.0-0.4) 02/02/19 05:53 Baso # 0.0 K/mm3 (0.0-0.1) 02/02/19 05:53 Seg Neutrophils % 73.8 % (40.0-70.0) H 02/02/19 05:53 Seg Neutrophils # 7.2 K/mm3 (1.8-7.7) 02/02/19 05:53 Sodium 142 mmol/L (137-145) 02/08/19 04:16 Potassium 3.8 mmol/L (3.6-5.0) 02/08/19 04:16 Chloride 113.2 mmol/L (98-107) H 02/08/19 04:16 Carbon Dioxide 16 mmol/L (22-30) L 02/08/19 04:16 Anion Gap 17 mmol/L 02/08/19 04:16 BUN 55 mg/dL (9-20) H 02/08/19 04:16 Creatinine 6.6 mg/dL (0.8-1.5) H 02/08/19 04:16 Estimated GFR 10 ml/min 02/08/19 04:16 BUN/Creatinine Ratio 8 % 02/08/19 04:16 Glucose 107 mg/dL (75-100) H 02/08/19 04:16 POC Glucose 134 (70-105) H 02/06/19 21:06 Hemoglobin A1c < 4.0 % (4-6) L 02/07/19 07:41 Calcium 7.9 mg/dL (8.4-10.2) L 02/08/19 04:16 Magnesium 2.30 mg/dL (1.7-2.3) 02/01/19 17:52 Ammonia 34.0 umol/L (25-60) 02/01/19 17:52 Total Creatine Kinase 66 units/L (55-170) 02/01/19 17:52 Triglycerides 135 mg/dL (2-149) 02/07/19 07:41 Cholesterol 155 mg/dL (50-199) 02/07/19 07:41 LDL Cholesterol Direct 101 mg/dL (50-130) 02/07/19 07:41 HDL Cholesterol 39 mg/dL (40-59) L 02/07/19 07:41 Cholesterol/HDL Ratio 3.97 % 02/07/19 07:41 TSH 1.990 mlU/mL (0.270-4.200) 02/01/19 17:52 Urine Color Yellow (Yellow) 02/01/19 20:45 Urine Turbidity Slightly-cloudy (Clear) 02/01/19 20:45 Urine pH 5.0 (5.0-7.0) 02/01/19 20:45 Ur Specific [place] 1.013 (1.003-1.030) 02/01/19 20:45 Urine Protein >500 mg/dL (Negative) 02/01/19 20:45 Urine Glucose (UA) Neg mg/dL (Negative) 02/01/19 20:45 Urine Ketones Neg mg/dL (Negative) 02/01/19 20:45 Urine Blood Sm (Negative) 02/01/19 20:45 Urine Nitrite Neg (Negative) 02/01/19 20:45 Urine Bilirubin Neg (Negative) 02/01/19 20:45 Urine Urobilinogen < 2.0 mg/dL (<2.0) 02/01/19 20:45 Ur Leukocyte Esterase Neg (Negative) 02/01/19 20:45 Urine WBC (Auto) 2.0 /HPF (0.0-6.0) 02/01/19 20:45 Urine RBC (Auto) 3.0 /HPF (0.0-6.0) 02/01/19 20:45 U Epithel Cells (Auto) 1.0 /HPF (0-13.0) 02/01/19 20:45 Urine Bacteria (Auto) 1+ /HPF (Negative) 02/01/19 20:45 Urine Mucus Few /HPF 02/01/19 20:45 Urine Yeast (Budding) 1+ /HPF 02/01/19 20:45 Urine Eosinophils None seen (None Seen) 02/02/19 02:30 Urine Creatinine 115.8 mg/dL (0.1-20.0) H 02/02/19 02:30 Urine Sodium 99 mmol/L 02/02/19 02:30 Urine Total Protein 198 mg/dL (5-11.8) H 02/02/19 02:30 Salicylates < 0.3 mg/dL (2.8-20.0) L 02/01/19 17:52 Acetaminophen < 5.0 ug/mL (10.0-30.0) L 02/01/19 17:52 Plasma/Serum Alcohol < 0.01 % (0-0.07) 02/01/19 17:52 Active Medications - Current Medications Current Medications: Generic Name Dose Route Start Last Admin Trade Name Freq PRN Reason Stop Dose Admin Acetaminophen 650 mg 02/01/19 20:23 02/08/19 20:44 Tylenol PO 650 mg Q4H PRN Administration Pain MILD(1-3)/Fever >100.5/QUAN Amlodipine Besylate 10 mg 02/01/19 21:00 02/09/19 09:39 Amlodipine PO 10 mg QDAY ENOC Administration Aripiprazole 5 mg 02/06/19 13:00 02/09/19 09:39 Aripiprazole PO 5 mg QDAY ENOC Administration Carvedilol 6.25 mg 02/01/19 21:21 02/09/19 09:39 Coreg PO 6.25 mg BID ENOC Administration Clonidine HCl 0.2 mg 02/06/19 11:30 02/09/19 09:38 Catapres PO 0.2 mg Q12HR ENOC Administration Docusate Sodium 100 mg 02/01/19 22:00 02/09/19 09:40 Colace PO 100 mg BID ENOC Administration Haloperidol Lactate 5 mg 02/08/19 11:09 02/08/19 20:45 Haldol IM 5 mg Q6H PRN Administration Agitation Hydralazine HCl 10 mg 02/01/19 20:12 02/07/19 22:55 Apresoline IV 10 mg Q4HR PRN Administration Blood Pressure Hydralazine HCl 100 mg 02/01/19 21:21 02/09/19 09:38 Apresoline PO 100 mg TID ENOC Administration Dextrose/Sodium Chloride 1,000 mls @ 75 mls/hr 02/07/19 13:00 02/09/19 02:12 D5/0.45ns IV 75 mls/hr DIRECT ENOC Administration Nicotine 14 mg 02/02/19 10:00 02/09/19 09:39 Habitrol TD 14 mg QDAY ENOC Administration Ondansetron HCl 4 mg 02/01/19 20:23 02/07/19 22:45 Zofran IV 4 mg Q8H PRN Administration Nausea And Vomiting Pantoprazole Sodium 40 mg 02/06/19 11:30 02/09/19 09:38 Protonix PO 40 mg QDAY ENOC Administration Sodium Chloride 10 ml 02/01/19 22:00 02/09/19 09:40 Sodium Chloride Flush Syringe 10 Ml IV 10 ml BID ENOC Administration Sodium Chloride 10 ml 02/01/19 20:23 02/04/19 05:25 Sodium Chloride Flush Syringe 10 Ml IV 10 ml PRN PRN Administration LINE FLUSH Nutrition/Malnutrition Assess - Dietary Evaluation Nutrition/Malnutrition Findings: Nutrition Notes Start: 02/03/19 09:42 Freq: Status: Active Protocol: Document 02/08/19 10:03 LP (Rec: 02/08/19 10:05 LP [id number]) Nutrition Notes Need for Assessment generated from: LOS Initial or Follow up Brief Note Subjective/Other Information Screen for LOS. Pt continues eating well. Consuming at least 75% of meals. Nutrition Intervention Revisit per MD consult or patient Sign Off request:
[2019-02-09] MEDS: HALOPERIDOL LACTATE 5 MG/1 ML INJ IM PRN (21:03)
[2019-02-10] MEDS ORDERED: FUROSEMIDE 40 MG/4 ML INJ IV ONE (03:38)
--- NOTE | 2019-02-10 08:34 | Progress Note ---
Assessment and Plan - Patient Problems (1) Renal failure Current Visit: Yes Status: Chronic Qualifiers: Renal failure chronicity: unspecified chronicity Qualified Code(s): N19 - Unspecified kidney failure Plan to address problem: Patient has significant renal failure. Discussed with primary attending, and based on his significant psychiatric issues he is not an ideal candidate for renal replacement therapy/dialysis. Would recommend conservative management at this point. (2) Acute respiratory failure with hypoxia Current Visit: Yes Status: Acute Plan to address problem: Placed on bipap at this time, given one dose of lasix 40 mg IV. Will obtain chest xray for evaluation. Will favor to place on lasix 60 mg IV BID and monitor. Need adequate monitoring of I/O. (3) Hypertensive chronic kidney disease with stage 1 through stage 4 chronic kidney disease, or unspecified chronic kidney disease Current Visit: Yes Status: Chronic Plan to address problem: Continue to monitor blood pressures under current regimen. (4) Proteinuria Current Visit: Yes Status: Acute Plan to address problem: Non nephrotic range proteinuria. Will continue to monitor. (5) Schizoaffective disorder Current Visit: Yes Status: Chronic Plan to address problem: Management per primary attending Subjective Date of service: 02/10/19 Principal diagnosis: acute kidney injury Interval history: Patient with worsening agitation, tachypnea, and respiratory distress overnight, placed on bipap. Labs reviewed. Received one dose of lasix 40 mg IV. Objective - Vital Signs Vital signs: Vital Signs - 12hr 02/09/19 02/10/19 22:00 03:24 Pulse Rate 68 O2 Sat by Pulse 100 Oximetry - General Appearance General appearance: chronically ill, frail, anxious EENT: ATNC, PERRL Neck: no JVD, no thyromegaly Respiratory: Present: Ronchi, Wheezes Cardiology: regular, S1S2 Gastrointestinal: normal, normoactive bowel sounds Integumentary: no rash, warm and dry Neurologic: confused, disoriented Musculoskeletal: deferred Psychiatric: agitated - Lab 02/05/19 07:00 02/08/19 04:16 Most recent lab results Calcium 7.9 mg/dL (8.4-10.2) L 02/08/19 04:16 Magnesium 2.30 mg/dL (1.7-2.3) 02/01/19 17:52 Urine Creatinine 115.8 mg/dL (0.1-20.0) H 02/02/19 02:30 Urine Sodium 99 mmol/L 02/02/19 02:30 Urine Total Protein 198 mg/dL (5-11.8) H 02/02/19 02:30 - Imaging Chest x-ray: pending - Allied health notes Allied health notes reviewed: nursing Medications & Allergies - Medications Allergies/Adverse Reactions: Allergies No Known Allergies Allergy (Unverified 04/17/17 13:03) Home Medications: Home Medications Medication Instructions Recorded Confirmed Last Taken Type ARIPiprazole [Abilify] 20 mg PO QDAY 02/03/19 02/03/19 1 Day Ago History ~02/02/19 Losartan/Hydrochlorothiazide 1 each PO QDAY 02/03/19 02/03/19 Unknown History [Losartan-Hctz 100-25 mg Tab] Active Medications: Generic Name Dose Route Start Last Admin Trade Name Freq PRN Reason Stop Dose Admin Acetaminophen 650 mg 02/01/19 20:23 02/08/19 20:44 Tylenol PO 650 mg Q4H PRN Administration Pain MILD(1-3)/Fever >100.5/QUAN Amlodipine Besylate 10 mg 02/01/19 21:00 02/09/19 09:39 Amlodipine PO 10 mg QDAY NEOC Administration Aripiprazole 5 mg 02/06/19 13:00 02/09/19 09:39 Aripiprazole PO 5 mg QDAY ENOC Administration Carvedilol 6.25 mg 02/01/19 21:21 02/09/19 21:02 Coreg PO 6.25 mg BID ENOC Administration Clonidine HCl 0.2 mg 02/06/19 11:30 02/09/19 21:01 Catapres PO 0.2 mg Q12HR ENOC Administration Docusate Sodium 100 mg 02/01/19 22:00 02/09/19 21:03 Colace PO 100 mg BID ENOC Administration Haloperidol Lactate 5 mg 02/08/19 11:09 02/09/19 21:03 Haldol IM 5 mg Q6H PRN Administration Agitation Hydralazine HCl 10 mg 02/01/19 20:12 02/07/19 22:55 Apresoline IV 10 mg Q4HR PRN Administration Blood Pressure Hydralazine HCl 100 mg 02/01/19 21:21 02/09/19 21:02 Apresoline PO 100 mg TID ENOC Administration Dextrose/Sodium Chloride 1,000 mls @ 75 mls/hr 02/07/19 13:00 02/09/19 02:12 D5/0.45ns IV 75 mls/hr DIRECT ENOC Administration Nicotine 14 mg 02/02/19 10:00 02/09/19 09:39 Habitrol TD 14 mg QDAY ENOC Administration Ondansetron HCl 4 mg 02/01/19 20:23 02/07/19 22:45 Zofran IV 4 mg Q8H PRN Administration Nausea And Vomiting Pantoprazole Sodium 40 mg 02/06/19 11:30 02/09/19 09:38 Protonix PO 40 mg QDAY ENOC Administration Sodium Chloride 10 ml 02/01/19 22:00 02/09/19 21:09 Sodium Chloride Flush Syringe 10 Ml IV 10 ml BID ENOC Administration Sodium Chloride 10 ml 02/01/19 20:23 02/04/19 05:25 Sodium Chloride Flush Syringe 10 Ml IV 10 ml PRN PRN Administration LINE FLUSH
--- NOTE | 2019-02-10 09:28 | XRay Report ---
CHEST 1 VIEW 02/10/2019 8:57 AM INDICATION / CLINICAL INFORMATION: shortness of breath. COMPARISON: None available. FINDINGS: SUPPORT DEVICES: There appears to be ventricular shunt catheter tubing projects over the right side o f the chest. HEART / MEDIASTINUM: No significant abnormality. LUNGS / PLEURA: There are bilateral perihilar opacities. There is a tiny left pleural effusion. No pn eumothorax. ADDITIONAL FINDINGS: No significant additional findings. IMPRESSION: 1. Bilateral perihilar parenchymal opacities that most likely reflect developing pulmonary edema. Signer Name: Derrick Bond MD Signed: 02/10/2019 9:23 AM Workstation Name: [email or web address]
[2019-02-10] MEDS: DOCUSATE SODIUM 100 MG CAP PO SCH ×2 (09:35→21:15)
[2019-02-10] MEDS: hydrALAZINE 100 MG TAB PO SCH ×3 (09:35→21:15)
[2019-02-10] MEDS: ARIPiprazole 5 MG TAB PO SCH (09:35)
[2019-02-10] MEDS: NICOTINE 14 MG/24 HR PATCH TD SCH (09:35)
[2019-02-10] MEDS: carvediloL 6.25 MG TAB PO SCH ×2 (09:35→21:15)
[2019-02-10] MEDS: amLODIPine 10 MG TAB PO SCH (09:35)
[2019-02-10] MEDS: cloNIDine 0.2 MG TAB PO SCH ×2 (09:35→21:15)
[2019-02-10] MEDS: PANTOPRAZOLE 40 MG TAB PO SCH (09:36)
[2019-02-10] MEDS: ACETAMINOPHEN 325 MG TAB PO PRN (09:42)
[2019-02-10 10:28] LABS: Hematocrit 30.5 % (35.5-45.6); Hemoglobin 9.7 gm/dl (11.8-15.2); Mean Corpuscular HGB Conc 32 % (32-34); Mean Corpuscular Volume 87 fl (84-94); Platelet Count 182 K/mm3 (140-440); Red Blood Count 3.51 M/mm3 (3.65-5.03); Red Cell Distribution Width 14.2 % (13.2-15.2)
--- NOTE | 2019-02-10 10:34 | Progress Note ---
Assessment and Plan Assessment and plan: Acute respiratory failure with hypoxia Patient developed shortness of breath, Oxygen desaturation overnight CHR shows bilat opacities, likely edema patient evaluated by Nephrology and lasix ordered Consulted Pulmnonology and I discussed with Dr. Jackson Will start iv Antibiotics until pneumonia ruled out since he has fever, leukocytosis Fever Blood culture x 2 To r/o sepsis Start empiric Antibiotics Acute encephalopathy -CT head negative -Afebrile, no leukocytosis -Continue Neuro checks -Neurology consulted and ruled out focal seizure, received IV Keppra in the ER -Hold Bacolfen d/t renal function - Possibly underlying psych issues also contributing - Ordered for mental health recommendation Acute unspecified psychosis vs delirium - Started on home medication Abilify 5 mg PO daily, psych following MIKEL on CKD 4 - vasomotor nephropathy versus progression of underlying chronic medical disease -Cr on admission 7.5 -CT abdomen and pelvis showed Indeterminant renal masses -Continue Hydrate with IVF -Avoid nephrotoxic agents -Renally dose all meds -Nephrology following -Discussed with nephrology Agitation haldol prn Hypertensive urgency -BP on admission 204/154 -Hx Hypertension -BP uncontrolled. Continue to adjust medications as needed N/V - resolved, likely from viral gastritis or GERD Hx Right subarachnoid hemorrhage, status post right frontal craniotomy Hx aneurysm, status post clipping -Continue supportive care -Neurology recommended outpatient follow Tobacco abuse -Current every day smoker -Counseled for cessation -Nicotine patch when necessary History of bipolar History of schizophrenia -Mental Health consult pending Thrombocytopenia. - cont to Monitor DVT PPX -SCD's Awaiting SNF placement History Interval history: Patient initially presented with nausea, vomiting, generalized weakness, Altered mental status, Agitation Overnight had shortness of breath, Oxygen desat Hospitalist Physical - Physical exam Narrative exam: Gen: Not in acute distress, lying in bed, HEENT: Normocephalic, atraumatic Neck: supple, no JVD Heart: S1 and S2 reg, no murmurs, rubs or gallop Lungs: Clear to auscultation bilaterally, Abd: soft, non tender, non distended, normal BS, Ext: No edema, no clubbing, no cyanosis Neuro: Awake, alert, no focal neurological signs - Constitutional Vitals: Temp Pulse Resp BP Pulse Ox 102.4 F H 121 H 42 H 186/104 99 02/10/19 09:47 02/10/19 03:57 02/10/19 10:04 02/10/19 09:47 02/10/19 10:04 Results - Labs CBC & Chem 7: 02/10/19 10:03 02/10/19 10:03 Labs: Laboratory Last Values WBC 14.0 K/mm3 (4.5-11.0) H 02/10/19 10:03 RBC 3.51 M/mm3 (3.65-5.03) L 02/10/19 10:03 Hgb 9.7 gm/dl (11.8-15.2) L 02/10/19 10:03 Hct 30.5 % (35.5-45.6) L 02/10/19 10:03 MCV 87 fl (84-94) 02/10/19 10:03 MCH 28 pg (28-32) 02/10/19 10:03 MCHC 32 % (32-34) 02/10/19 10:03 RDW 14.2 % (13.2-15.2) 02/10/19 10:03 Plt Count 182 K/mm3 (140-440) 02/10/19 10:03 Lymph % (Auto) 18.2 % (13.4-35.0) 02/02/19 05:53 [place] % (Auto) 7.1 % (0.0-7.3) 02/02/19 05:53 Eos % (Auto) 0.5 % (0.0-4.3) 02/02/19 05:53 Baso % (Auto) 0.4 % (0.0-1.8) 02/02/19 05:53 Lymph # 1.8 K/mm3 (1.2-5.4) 02/02/19 05:53 [place] # 0.7 K/mm3 (0.0-0.8) 02/02/19 05:53 Eos # 0.0 K/mm3 (0.0-0.4) 02/02/19 05:53 Baso # 0.0 K/mm3 (0.0-0.1) 02/02/19 05:53 Seg Neutrophils % 73.8 % (40.0-70.0) H 02/02/19 05:53 Seg Neutrophils # 7.2 K/mm3 (1.8-7.7) 02/02/19 05:53 POC ABG pH 7.398 (7.35-7.45) 02/10/19 10:16 POC ABG pCO2 25.4 (35-45) L 02/10/19 10:16 POC ABG HCO3 15.6 (22-26 mml/L) 02/10/19 10:16 POC ABG Total CO2 16 (23-27mmol/L) 02/10/19 10:16 POC ABG O2 Sat 76 02/10/19 10:16 POC ABG Base Excess -9 ((-2) - (+3)mmol/L) 02/10/19 10:16 FiO2 50 % 02/10/19 10:16 Sodium 142 mmol/L (137-145) 02/08/19 04:16 Potassium 3.8 mmol/L (3.6-5.0) 02/08/19 04:16 Chloride 113.2 mmol/L (98-107) H 02/08/19 04:16 Carbon Dioxide 16 mmol/L (22-30) L 02/08/19 04:16 Anion Gap 17 mmol/L 02/08/19 04:16 BUN 55 mg/dL (9-20) H 02/08/19 04:16 Creatinine 6.6 mg/dL (0.8-1.5) H 02/08/19 04:16 Estimated GFR 10 ml/min 02/08/19 04:16 BUN/Creatinine Ratio 8 % 02/08/19 04:16 Glucose 107 mg/dL (75-100) H 02/08/19 04:16 POC Glucose 134 (70-105) H 02/06/19 21:06 Hemoglobin A1c < 4.0 % (4-6) L 02/07/19 07:41 Calcium 7.9 mg/dL (8.4-10.2) L 02/08/19 04:16 Magnesium 2.30 mg/dL (1.7-2.3) 02/01/19 17:52 Ammonia 34.0 umol/L (25-60) 02/01/19 17:52 Total Creatine Kinase 66 units/L (55-170) 02/01/19 17:52 Triglycerides 135 mg/dL (2-149) 02/07/19 07:41 Cholesterol 155 mg/dL (50-199) 02/07/19 07:41 LDL Cholesterol Direct 101 mg/dL (50-130) 02/07/19 07:41 HDL Cholesterol 39 mg/dL (40-59) L 02/07/19 07:41 Cholesterol/HDL Ratio 3.97 % 02/07/19 07:41 TSH 1.990 mlU/mL (0.270-4.200) 02/01/19 17:52 Urine Color Yellow (Yellow) 02/01/19 20:45 Urine Turbidity Slightly-cloudy (Clear) 02/01/19 20:45 Urine pH 5.0 (5.0-7.0) 02/01/19 20:45 Ur Specific [place] 1.013 (1.003-1.030) 02/01/19 20:45 Urine Protein >500 mg/dL (Negative) 02/01/19 20:45 Urine Glucose (UA) Neg mg/dL (Negative) 02/01/19 20:45 Urine Ketones Neg mg/dL (Negative) 02/01/19 20:45 Urine Blood Sm (Negative) 02/01/19 20:45 Urine Nitrite Neg (Negative) 02/01/19 20:45 Urine Bilirubin Neg (Negative) 02/01/19 20:45 Urine Urobilinogen < 2.0 mg/dL (<2.0) 02/01/19 20:45 Ur Leukocyte Esterase Neg (Negative) 02/01/19 20:45 Urine WBC (Auto) 2.0 /HPF (0.0-6.0) 02/01/19 20:45 Urine RBC (Auto) 3.0 /HPF (0.0-6.0) 02/01/19 20:45 U Epithel Cells (Auto) 1.0 /HPF (0-13.0) 02/01/19 20:45 Urine Bacteria (Auto) 1+ /HPF (Negative) 02/01/19 20:45 Urine Mucus Few /HPF 02/01/19 20:45 Urine Yeast (Budding) 1+ /HPF 02/01/19 20:45 Urine Eosinophils None seen (None Seen) 02/02/19 02:30 Urine Creatinine 115.8 mg/dL (0.1-20.0) H 02/02/19 02:30 Urine Sodium 99 mmol/L 02/02/19 02:30 Urine Total Protein 198 mg/dL (5-11.8) H 02/02/19 02:30 Salicylates < 0.3 mg/dL (2.8-20.0) L 02/01/19 17:52 Acetaminophen < 5.0 ug/mL (10.0-30.0) L 02/01/19 17:52 Plasma/Serum Alcohol < 0.01 % (0-0.07) 02/01/19 17:52 Active Medications - Current Medications Current Medications: Generic Name Dose Route Start Last Admin Trade Name Fre PRN Reason Stop Dose Admin Acetaminophen 650 mg 02/01/19 20:23 02/10/19 09:42 Tylenol PO 650 mg Q4H PRN Administration Pain MILD(1-3)/Fever >100.5/QUAN Amlodipine Besylate 10 mg 02/01/19 21:00 02/10/19 09:35 Amlodipine PO 10 mg QDAY ENOC Administration Aripiprazole 5 mg 02/06/19 13:00 02/10/19 09:35 Aripiprazole PO 5 mg QDAY ENOC Administration Carvedilol 6.25 mg 02/01/19 21:21 02/10/19 09:35 Coreg PO 6.25 mg BID ENOC Administration Clonidine HCl 0.2 mg 02/06/19 11:30 02/10/19 09:35 Catapres PO 0.2 mg Q12HR ENOC Administration Docusate Sodium 100 mg 02/01/19 22:00 02/10/19 09:35 Colace PO 100 mg BID ENOC Administration Furosemide 60 mg 02/10/19 18:00 Lasix IV 0600,1800 ENOC Haloperidol Lactate 5 mg 02/08/19 11:09 02/09/19 21:03 Haldol IM 5 mg Q6H PRN Administration Agitation Hydralazine HCl 10 mg 02/01/19 20:12 02/07/19 22:55 Apresoline IV 10 mg Q4HR PRN Administration Blood Pressure Hydralazine HCl 100 mg 02/01/19 21:21 02/10/19 09:35 Apresoline PO 100 mg TID ENOC Administration Nicotine 14 mg 02/02/19 10:00 02/10/19 09:35 Habitrol TD 14 mg QDAY ENOC Administration Ondansetron HCl 4 mg 02/01/19 20:23 02/07/19 22:45 Zofran IV 4 mg Q8H PRN Administration Nausea And Vomiting Pantoprazole Sodium 40 mg 02/06/19 11:30 02/10/19 09:36 Protonix PO 40 mg QDAY ENOC Administration Sodium Chloride 10 ml 02/01/19 22:00 02/10/19 09:36 Sodium Chloride Flush Syringe 10 Ml IV 10 ml BID ENOC Administration Sodium Chloride 10 ml 02/01/19 20:23 02/04/19 05:25 Sodium Chloride Flush Syringe 10 Ml IV 10 ml PRN PRN Administration LINE FLUSH Nutrition/Malnutrition Assess - Dietary Evaluation Nutrition/Malnutrition Findings: Nutrition Notes Start: 02/03/19 09:42 Freq: Status: Active Protocol: Document 02/08/19 10:03 LP (Rec: 02/08/19 10:05 LP [email or web address]) Nutrition Notes Need for Assessment generated from: LOS Initial or Follow up Brief Note Subjective/Other Information Screen for LOS. Pt continues eating well. Consuming at least 75% of meals. Nutrition Intervention Revisit per MD consult or patient Sign Off request:
[2019-02-10 10:47] LABS: Albumin 3.1 g/dL (3.9-5); Calcium 7.9 mg/dL (8.4-10.2)
--- NOTE | 2019-02-10 11:02 | Consultation ---
History of Present Illness Reason for consult: dyspnea History of present illness: this a gentleman w hx on ESRD who came w change in mental statu. Overnight he had episode of increased sob. He also had fever of 102. Now on bipap Chart reviewed. Spoke w Dr Ho re history Past History Past Medical History: hypertension, renal failure, other (schizophrenia, bipolar, subarachnoid hemorrhage status post right frontal craniotomy, right aneurysm clip) Past Surgical History: Other (right frontal craniotomy, right aneurysm clipping (1994)) Social history: no significant social history Family history: no significant family history, other (father is alive and well in his 80s. Mother of complications of alcoholism) Medications and Allergies Allergies Allergy/AdvReac Type Severity Reaction Status Date / Time No Known Allergies Allergy Unverified 04/17/17 13:03 Home Medications Medication Instructions Recorded Confirmed Last Taken Type ARIPiprazole [Abilify] 20 mg PO QDAY 02/03/19 02/03/19 1 Day Ago History ~02/02/19 Losartan/Hydrochlorothiazide 1 each PO QDAY 02/03/19 02/03/19 Unknown History [Losartan-Hctz 100-25 mg Tab] Active Meds: Active Medications Acetaminophen (Tylenol) 650 mg PO Q4H PRN PRN Reason: Pain MILD(1-3)/Fever >100.5/QUAN Last Admin: 02/10/19 09:42 Dose: 650 mg Documented by: Amlodipine Besylate (Amlodipine) 10 mg PO QDAY [facility] Last Admin: 02/10/19 09:35 Dose: 10 mg Documented by: Aripiprazole (Aripiprazole) 5 mg PO QDAY [facility] Last Admin: 02/10/19 09:35 Dose: 5 mg Documented by: Carvedilol (Coreg) 6.25 mg PO BID [facility] Last Admin: 02/10/19 09:35 Dose: 6.25 mg Documented by: Clonidine HCl (Catapres) 0.2 mg PO Q12HR [facility] Last Admin: 02/10/19 09:35 Dose: 0.2 mg Documented by: Docusate Sodium (Colace) 100 mg PO BID [facility] Last Admin: 02/10/19 09:35 Dose: 100 mg Documented by: Furosemide (Lasix) 60 mg IV 0600,1800 [facility] Haloperidol Lactate (Haldol) 5 mg IM Q6H PRN PRN Reason: Agitation Last Admin: 02/09/19 21:03 Dose: 5 mg Documented by: Hydralazine HCl (Apresoline) 10 mg IV Q4HR PRN PRN Reason: Blood Pressure Last Admin: 02/07/19 22:55 Dose: 10 mg Documented by: Hydralazine HCl (Apresoline) 100 mg PO TID [facility] Last Admin: 02/10/19 09:35 Dose: 100 mg Documented by: Nicotine (Habitrol) 14 mg TD QDAY [facility] Last Admin: 02/10/19 09:35 Dose: 14 mg Documented by: Ondansetron HCl (Zofran) 4 mg IV Q8H PRN PRN Reason: Nausea And Vomiting Last Admin: 02/07/19 22:45 Dose: 4 mg Documented by: Pantoprazole Sodium (Protonix) 40 mg PO QDAY [facility] Last Admin: 02/10/19 09:36 Dose: 40 mg Documented by: Sodium Chloride (Sodium Chloride Flush Syringe 10 Ml) 10 ml IV BID [facility] Last Admin: 02/10/19 09:36 Dose: 10 ml Documented by: Sodium Chloride (Sodium Chloride Flush Syringe 10 Ml) 10 ml IV PRN PRN PRN Reason: LINE FLUSH Last Admin: 02/04/19 05:25 Dose: 10 ml Documented by: Review of Systems Constitutional: weakness Physical Examination Vital signs: Vital Signs Temp Pulse Resp BP Pulse Ox 98.7 F 112 H 18 203/146 100 02/01/19 16:30 02/01/19 16:30 02/01/19 16:30 02/01/19 16:30 02/01/19 16:30 General appearance: no acute distress, asleep, other (on bipap) Eyes: non-icteric ENT: oropharynx moist Neck: supple Effort: normal Ascultation: Bilateral: diminished breath sounds Cardiovascular: regular rate and rhythm Extremities: no cyanosis other (arousable) Results - Laboratory Findings CBC and BMP: 02/10/19 10:03 02/10/19 10:03 ABG POC ABG pH 7.398 (7.35-7.45) 02/10/19 10:16 POC ABG pCO2 25.4 (35-45) L 02/10/19 10:16 POC ABG HCO3 15.6 (22-26 mml/L) 02/10/19 10:16 POC ABG Total CO2 16 (23-27mmol/L) 02/10/19 10:16 POC ABG O2 Sat 76 02/10/19 10:16 Abnormal lab findings: Abnormal Labs 02/01/19 02/01/19 02/01/19 16:38 16:38 16:50 WBC RBC Hgb Hct Plt Count 134 L Lymph % (Auto) 10.0 L Lymph # 0.8 L Seg Neutrophils % 86.1 H POC ABG pCO2 Sodium Chloride 107.3 H Carbon Dioxide 20 L BUN 58 H Creatinine 7.5 H Glucose 125 H POC Glucose 119 H Hemoglobin A1c Calcium Phosphorus Magnesium Total Protein Albumin HDL Cholesterol Urine Creatinine Urine Total Protein Salicylates Acetaminophen 02/01/19 02/01/19 02/02/19 17:52 17:52 02:30 WBC RBC Hgb Hct Plt Count Lymph % (Auto) Lymph # Seg Neutrophils % POC ABG pCO2 Sodium Chloride Carbon Dioxide BUN Creatinine Glucose POC Glucose Hemoglobin A1c Calcium Phosphorus Magnesium Total Protein Albumin HDL Cholesterol Urine Creatinine 115.8 H Urine Total Protein 198 H Salicylates < 0.3 L Acetaminophen < 5.0 L 02/02/19 02/02/19 02/03/19 05:53 05:53 06:34 WBC RBC Hgb 11.4 L Hct 35.4 L Plt Count 113 L Lymph % (Auto) Lymph # Seg Neutrophils % 73.8 H POC ABG pCO2 Sodium 146 H Chloride 113.4 H 114.1 H Carbon Dioxide 18 L 17 L BUN 55 H 60 H Creatinine 6.9 H 7.1 H Glucose POC Glucose Hemoglobin A1c Calcium Phosphorus Magnesium Total Protein Albumin HDL Cholesterol Urine Creatinine Urine Total Protein Salicylates Acetaminophen 02/03/19 02/04/19 02/05/19 06:34 10:29 07:00 WBC RBC 3.63 L Hgb 10.8 L 10.1 L Hct 33.3 L 31.7 L Plt Count 121 L 125 L Lymph % (Auto) Lymph # Seg Neutrophils % POC ABG pCO2 Sodium Chloride 115.9 H Carbon Dioxide 16 L BUN 62 H Creatinine 7.0 H Glucose 105 H POC Glucose Hemoglobin A1c Calcium Phosphorus Magnesium Total Protein Albumin HDL Cholesterol Urine Creatinine Urine Total Protein Salicylates Acetaminophen 02/05/19 02/06/19 02/06/19 07:00 08:43 21:06 WBC RBC Hgb Hct Plt Count Lymph % (Auto) Lymph # Seg Neutrophils % POC ABG pCO2 Sodium Chloride 115.6 H 112.0 H Carbon Dioxide 14 L 17 L BUN 59 H 55 H Creatinine 6.8 H 6.7 H Glucose POC Glucose 134 H Hemoglobin A1c Calcium Phosphorus Magnesium Total Protein Albumin HDL Cholesterol Urine Creatinine Urine Total Protein Salicylates Acetaminophen 02/07/19 02/07/19 02/07/19 07:41 07:41 11:02 WBC RBC Hgb Hct Plt Count Lymph % (Auto) Lymph # Seg Neutrophils % POC ABG pCO2 Sodium Chloride 113.2 H Carbon Dioxide 16 L BUN 56 H Creatinine 6.3 H Glucose POC Glucose Hemoglobin A1c < 4.0 L Calcium Phosphorus Magnesium Total Protein Albumin HDL Cholesterol 39 L Urine Creatinine Urine Total Protein Salicylates Acetaminophen 02/08/19 02/10/19 02/10/19 04:16 10:03 10:03 WBC 14.0 H RBC 3.51 L Hgb 9.7 L Hct 30.5 L Plt Count Lymph % (Auto) Lymph # Seg Neutrophils % POC ABG pCO2 Sodium Chloride 113.2 H 110.9 H Carbon Dioxide 16 L 13 L BUN 55 H 65 H Creatinine 6.6 H 7.1 H Glucose 107 H POC Glucose Hemoglobin A1c Calcium 7.9 L 7.9 L Phosphorus 2.20 L Magnesium 1.60 L Total Protein 5.9 L Albumin 3.1 L HDL Cholesterol Urine Creatinine Urine Total Protein Salicylates Acetaminophen 02/10/19 10:16 WBC RBC Hgb Hct Plt Count Lymph % (Auto) Lymph # Seg Neutrophils % POC ABG pCO2 25.4 L Sodium Chloride Carbon Dioxide BUN Creatinine Glucose POC Glucose Hemoglobin A1c Calcium Phosphorus Magnesium Total Protein Albumin HDL Cholesterol Urine Creatinine Urine Total Protein Salicylates Acetaminophen - Diagnostic Findings Chest x-ray: report reviewed, image reviewed Assessment and Plan - Patient Problems (1) Acute encephalopathy Current Visit: Yes Status: Acute (2) Acute kidney injury Current Visit: Yes Status: Acute (3) Acute respiratory failure with hypoxia Current Visit: Yes Status: Acute (4) Schizoaffective disorder Current Visit: Yes Status: Chronic
[2019-02-10] MEDS ORDERED: VANCOMYCIN PHARMACY TO DOSE IV SCH (12:00)
[2019-02-10] MEDS ORDERED: VANCOMYCIN/NS 1 GM/250 ML 1 GM/250 ML BAG IV SCH (15:30)
[2019-02-10] MEDS: FUROSEMIDE 100 MG/10 ML INJ IV SCH (17:14)
[2019-02-10] MEDS ORDERED: FUROSEMIDE 40 MG/4 ML INJ IV SCH (18:00)
[2019-02-11] MEDS: FUROSEMIDE 100 MG/10 ML INJ IV SCH ×2 (05:03→17:48)
[2019-02-11 06:56] LABS: Hematocrit 30.9 % (35.5-45.6); Hemoglobin 9.9 gm/dl (11.8-15.2); Mean Corpuscular HGB Conc 32 % (32-34); Mean Corpuscular Volume 86 fl (84-94); Platelet Count 190 K/mm3 (140-440); Red Blood Count 3.58 M/mm3 (3.65-5.03); Red Cell Distribution Width 14.2 % (13.2-15.2)
[2019-02-11 07:13] LABS: Calcium 8.5 mg/dL (8.4-10.2)
--- NOTE | 2019-02-11 08:28 | Progress Note ---
Assessment and Plan - Patient Problems (1) Acute encephalopathy Current Visit: Yes Status: Acute (2) Acute kidney injury Current Visit: Yes Status: Acute (3) Acute respiratory failure with hypoxia Current Visit: Yes Status: Acute (4) Schizoaffective disorder Current Visit: Yes Status: Chronic (5) Hypertensive chronic kidney disease with stage 1 through stage 4 chronic kidney disease, or unspecified chronic kidney disease Current Visit: Yes Status: Chronic Subjective Principal diagnosis: acute kidney injury Interval history: improved mental status on bipap Objective Vital Signs - 12hr 02/10/19 02/10/19 02/11/19 20:47 23:49 00:00 Temperature Pulse Rate 101 H 96 H Respiratory 26 H 22 Rate Blood Pressure 147/97 O2 Sat by Pulse 99 94 Oximetry 02/11/19 02/11/19 02/11/19 00:08 03:15 04:38 Temperature 98.3 F Pulse Rate 109 H Respiratory 26 H 26 H Rate Blood Pressure 153/103 O2 Sat by Pulse 99 94 Oximetry 02/11/19 02/11/19 04:39 07:18 Temperature 99.1 F 97.9 F Pulse Rate 99 H Respiratory 18 Rate Blood Pressure 140/97 O2 Sat by Pulse 100 Oximetry Constitutional: no acute distress, asleep, other (on bipap) Eyes: non-icteric ENT: oropharynx moist Neck: supple Effort: normal Ascultation: Bilateral: rales Cardiovascular: regular rate and rhythm Gastrointestinal: normoactive bowel sounds Extremities: no cyanosis Neurologic: other (arousable) CBC and BMP: 02/11/19 06:07 02/11/19 06:07 ABG, PT/INR, D-dimer: ABG POC ABG pH 7.398 (7.35-7.45) 02/10/19 10:16 POC ABG pCO2 25.4 (35-45) L 02/10/19 10:16 POC ABG HCO3 15.6 (22-26 mml/L) 02/10/19 10:16 POC ABG Total CO2 16 (23-27mmol/L) 02/10/19 10:16 POC ABG O2 Sat 76 02/10/19 10:16 Abnormal lab findings: Abnormal Labs 02/01/19 02/01/19 02/01/19 16:38 16:38 16:50 WBC RBC Hgb Hct Plt Count 134 L Lymph % (Auto) 10.0 L Lymph # 0.8 L Seg Neutrophils % 86.1 H POC ABG pCO2 Sodium Chloride 107.3 H Carbon Dioxide 20 L BUN 58 H Creatinine 7.5 H Glucose 125 H POC Glucose 119 H Hemoglobin A1c Calcium Phosphorus Magnesium Total Protein Albumin HDL Cholesterol Urine Creatinine Urine Total Protein Salicylates Acetaminophen 02/01/19 02/01/19 02/02/19 17:52 17:52 02:30 WBC RBC Hgb Hct Plt Count Lymph % (Auto) Lymph # Seg Neutrophils % POC ABG pCO2 Sodium Chloride Carbon Dioxide BUN Creatinine Glucose POC Glucose Hemoglobin A1c Calcium Phosphorus Magnesium Total Protein Albumin HDL Cholesterol Urine Creatinine 115.8 H Urine Total Protein 198 H Salicylates < 0.3 L Acetaminophen < 5.0 L 02/02/19 02/02/19 02/03/19 05:53 05:53 06:34 WBC RBC Hgb 11.4 L Hct 35.4 L Plt Count 113 L Lymph % (Auto) Lymph # Seg Neutrophils % 73.8 H POC ABG pCO2 Sodium 146 H Chloride 113.4 H 114.1 H Carbon Dioxide 18 L 17 L BUN 55 H 60 H Creatinine 6.9 H 7.1 H Glucose POC Glucose Hemoglobin A1c Calcium Phosphorus Magnesium Total Protein Albumin HDL Cholesterol Urine Creatinine Urine Total Protein Salicylates Acetaminophen 02/03/19 02/04/19 02/05/19 06:34 10:29 07:00 WBC RBC 3.63 L Hgb 10.8 L 10.1 L Hct 33.3 L 31.7 L Plt Count 121 L 125 L Lymph % (Auto) Lymph # Seg Neutrophils % POC ABG pCO2 Sodium Chloride 115.9 H Carbon Dioxide 16 L BUN 62 H Creatinine 7.0 H Glucose 105 H POC Glucose Hemoglobin A1c Calcium Phosphorus Magnesium Total Protein Albumin HDL Cholesterol Urine Creatinine Urine Total Protein Salicylates Acetaminophen 02/05/19 02/06/19 02/06/19 07:00 08:43 21:06 WBC RBC Hgb Hct Plt Count Lymph % (Auto) Lymph # Seg Neutrophils % POC ABG pCO2 Sodium Chloride 115.6 H 112.0 H Carbon Dioxide 14 L 17 L BUN 59 H 55 H Creatinine 6.8 H 6.7 H Glucose POC Glucose 134 H Hemoglobin A1c Calcium Phosphorus Magnesium Total Protein Albumin HDL Cholesterol Urine Creatinine Urine Total Protein Salicylates Acetaminophen 11/26/19 11/26/19 11/26/19 07:41 07:41 11:02 WBC RBC Hgb Hct Plt Count Lymph % (Auto) Lymph # Seg Neutrophils % POC ABG pCO2 Sodium Chloride 113.2 H Carbon Dioxide 16 L BUN 56 H Creatinine 6.3 H Glucose POC Glucose Hemoglobin A1c < 4.0 L Calcium Phosphorus Magnesium Total Protein Albumin HDL Cholesterol 39 L Urine Creatinine Urine Total Protein Salicylates Acetaminophen 02/08/19 02/10/19 02/10/19 04:16 10:03 10:03 WBC 14.0 H RBC 3.51 L Hgb 9.7 L Hct 30.5 L Plt Count Lymph % (Auto) Lymph # Seg Neutrophils % POC ABG pCO2 Sodium Chloride 113.2 H 110.9 H Carbon Dioxide 16 L 13 L BUN 55 H 65 H Creatinine 6.6 H 7.1 H Glucose 107 H POC Glucose Hemoglobin A1c Calcium 7.9 L 7.9 L Phosphorus 2.20 L Magnesium 1.60 L Total Protein 5.9 L Albumin 3.1 L HDL Cholesterol Urine Creatinine Urine Total Protein Salicylates Acetaminophen 02/10/19 02/11/19 02/11/19 10:16 06:07 06:07 WBC 14.8 H RBC 3.58 L Hgb 9.9 L Hct 30.9 L Plt Count Lymph % (Auto) Lymph # Seg Neutrophils % POC ABG pCO2 25.4 L Sodium Chloride 114.6 H Carbon Dioxide 16 L BUN 75 H Creatinine 8.2 H Glucose 107 H POC Glucose Hemoglobin A1c Calcium Phosphorus Magnesium Total Protein Albumin HDL Cholesterol Urine Creatinine Urine Total Protein Salicylates Acetaminophen Allied health notes reviewed: nursing
[2019-02-11] MEDS: hydrALAZINE 100 MG TAB PO SCH ×3 (09:00→21:18)
[2019-02-11 09:26] LABS: ABG Base Excess -6.4 mmol/L (-2.0-3.0); ABG HCO3 17.1 mmol/L (20.0-26.0); ABG Methemoglobin 0.6 % (0.0-1.5); ABG Oxygen Saturation 91.1 % (95.0-99.0); ABG PH 7.419 pH Units (7.350-7.450); ABG PO2 56.7 mm Hg (80.0-90.0)
--- NOTE | 2019-02-11 09:31 | XRay Report ---
CHEST 1 VIEW INDICATION / CLINICAL INFORMATION: shortness of breath. COMPARISON: 02/10/2019 FINDINGS: SUPPORT DEVICES: Right shunt catheter is noted. HEART / MEDIASTINUM: Unchanged LUNGS / PLEURA: Bilateral pulmonary opacities are noted and have slightly improved in the interval.. No pneumothorax. ADDITIONAL FINDINGS: No significant additional findings. IMPRESSION: 1. Slight improvement in bilateral pulmonary opacities Signer Name: Alcides Miller MD Signed: 02/11/2019 9:27 AM Workstation Name: [id number]
[2019-02-11] MEDS: amLODIPine 10 MG TAB PO SCH (10:30)
[2019-02-11] MEDS: DOCUSATE SODIUM 100 MG CAP PO SCH ×2 (10:30→21:17)
[2019-02-11] MEDS: PANTOPRAZOLE 40 MG TAB PO SCH (10:30)
[2019-02-11] MEDS: cloNIDine 0.2 MG TAB PO SCH ×2 (10:30→21:18)
[2019-02-11] MEDS: carvediloL 6.25 MG TAB PO SCH ×2 (10:30→21:17)
[2019-02-11] MEDS: ARIPiprazole 5 MG TAB PO SCH (10:31)
[2019-02-11] MEDS: NICOTINE 14 MG/24 HR PATCH TD SCH (10:32)
--- NOTE | 2019-02-11 11:25 | Progress Note ---
Assessment and Plan - Patient Problems (1) Renal failure Current Visit: Yes Status: Chronic Qualifiers: Renal failure chronicity: unspecified chronicity Qualified Code(s): N19 - Unspecified kidney failure Plan to address problem: Patient has significant renal failure. Discussed with primary attending, and based on his significant psychiatric issues he is not an ideal candidate for renal replacement therapy/dialysis. Would recommend conservative management at this point. We'll continue with current Lasix regimen 60 mg IV twice a day with titration as needed. He seems to now be responding more to the diuretic regimen. Renal function noted and his creatinine is slightly elevated more than yesterday. There is no acute indications for renal placement therapy at present time. We'll continue to monitor. (2) Acute respiratory failure with hypoxia Current Visit: Yes Status: Acute Plan to address problem: Continue current IV diuretic regimen. Strict I's and O's. Avoid standing IV fluids. Chest x-ray reviewed. Continue on high flow nasal cannula per primary team. We'll continue to monitor. (3) Hypertensive chronic kidney disease with stage 1 through stage 4 chronic kidney disease, or unspecified chronic kidney disease Current Visit: Yes Status: Chronic Plan to address problem: Continue to monitor blood pressures under current regimen. (4) Proteinuria Current Visit: Yes Status: Acute Plan to address problem: Non nephrotic range proteinuria. Will continue to monitor. (5) Schizoaffective disorder Current Visit: Yes Status: Chronic Plan to address problem: Management per primary attending Subjective Date of service: 02/11/19 Principal diagnosis: acute kidney injury Interval history: Patient placed on high flow nasal cannula. Respiratory status stable this morning. Was on BiPAP earlier last night. Continues on Lasix 60 mg IV twice a day. He is urine output is showing an increase over the last 24 hours in the nonoliguric range. Objective - Vital Signs Vital signs: Vital Signs - 12hr 02/10/19 02/11/19 02/11/19 23:49 00:00 00:08 Temperature 98.3 F Pulse Rate 101 H 96 H Respiratory 22 Rate Blood Pressure 147/97 O2 Sat by Pulse 94 Oximetry 02/11/19 02/11/19 02/11/19 03:15 04:38 04:39 Temperature 99.1 F Pulse Rate 109 H Respiratory 26 H 26 H Rate Blood Pressure 153/103 O2 Sat by Pulse 99 94 Oximetry 11/02/11/19 02/11/19 07:18 08:58 10:30 Temperature 97.9 F Pulse Rate 99 H 99 H Respiratory 18 Rate Blood Pressure 140/97 140/97 O2 Sat by Pulse 100 94 Oximetry 02/11/19 11:02 Temperature 98.0 F Pulse Rate 98 H Respiratory 18 Rate Blood Pressure 146/95 O2 Sat by Pulse 97 Oximetry - General Appearance General appearance: appears stated age, chronically ill, frail EENT: ATNC, PERRL Neck: no JVD, no thyromegaly Respiratory: Present: Decreased Breath Sounds Cardiology: regular, S1S2 Gastrointestinal: normal, normoactive bowel sounds Integumentary: no rash, warm and dry Neurologic: confused, disoriented Psychiatric: agitated, pressured speech - Lab 02/11/19 06:07 02/11/19 06:07 Most recent lab results ABG pH 7.419 pH Units (7.350-7.450) 02/11/19 09:20 ABG pCO2 27.0 mm Hg 02/11/19 09:20 ABG pO2 56.7 mm Hg (80.0-90.0) L 02/11/19 09:20 ABG HCO3 17.1 mmol/L (20.0-26.0) L 02/11/19 09:20 ABG O2 Saturation 91.1 % (95.0-99.0) L 02/11/19 09:20 Calcium 8.5 mg/dL (8.4-10.2) 02/11/19 06:07 Phosphorus 2.20 mg/dL (2.5-4.5) L 02/10/19 10:03 Magnesium 1.60 mg/dL (1.7-2.3) L 02/10/19 10:03 Urine Creatinine 115.8 mg/dL (0.1-20.0) H 02/02/19 02:30 Urine Sodium 99 mmol/L 02/02/19 02:30 Urine Total Protein 198 mg/dL (5-11.8) H 02/02/19 02:30 - Imaging Chest x-ray: report reviewed, image reviewed - Allied health notes Allied health notes reviewed: nursing Medications & Allergies - Medications Allergies/Adverse Reactions: Allergies No Known Allergies Allergy (Unverified 04/17/17 13:03) Home Medications: Home Medications Medication Instructions Recorded Confirmed Last Taken Type ARIPiprazole [Abilify] 20 mg PO QDAY 02/03/19 02/03/19 1 Day Ago History ~02/02/19 Losartan/Hydrochlorothiazide 1 each PO QDAY 02/03/19 02/03/19 Unknown History [Losartan-Hctz 100-25 mg Tab] Active Medications: Generic Name Dose Route Start Last Admin Trade Name Freq PRN Reason Stop Dose Admin Acetaminophen 650 mg 02/01/19 20:23 02/10/19 09:42 Tylenol PO 650 mg Q4H PRN Administration Pain MILD(1-3)/Fever >100.5/QUAN Amlodipine Besylate 10 mg 02/01/19 21:00 02/11/19 10:30 Amlodipine PO 10 mg QDAY ENOC Administration Aripiprazole 5 mg 02/06/19 13:00 02/11/19 10:31 Aripiprazole PO 5 mg QDAY ENOC Administration Carvedilol 6.25 mg 02/01/19 21:21 02/11/19 10:30 Coreg PO 6.25 mg BID ENOC Administration Clonidine HCl 0.2 mg 02/06/19 11:30 02/11/19 10:30 Catapres PO 0.2 mg Q12HR ENOC Administration Docusate Sodium 100 mg 02/01/19 22:00 02/11/19 10:30 Colace PO 100 mg BID ENOC Administration Furosemide 60 mg 02/10/19 18:00 02/11/19 05:03 Lasix IV 60 mg 0600,1800 ENOC Administration Haloperidol Lactate 5 mg 02/08/19 11:09 02/09/19 21:03 Haldol IM 5 mg Q6H PRN Administration Agitation Hydralazine HCl 10 mg 02/01/19 20:12 02/07/19 22:55 Apresoline IV 10 mg Q4HR PRN Administration Blood Pressure Hydralazine HCl 100 mg 02/01/19 21:21 02/11/19 09:00 Apresoline PO 100 mg TID ENOC Administration Levofloxacin/Dextrose 500 mg in 100 mls @ 66.667 mls/hr 02/12/19 10:00 Levaquin 500mg/100ml IV Q48H ENOC Protocol Nicotine 14 mg 02/02/19 10:00 02/11/19 10:32 Habitrol TD 14 mg QDAY ENOC Administration Ondansetron HCl 4 mg 02/01/19 20:23 02/07/19 22:45 Zofran IV 4 mg Q8H PRN Administration Nausea And Vomiting Pantoprazole Sodium 40 mg 02/06/19 11:30 02/11/19 10:30 Protonix PO 40 mg QDAY ENOC Administration Sodium Chloride 10 ml 02/01/19 22:00 02/11/19 10:31 Sodium Chloride Flush Syringe 10 Ml IV 10 ml BID ENOC Administration Sodium Chloride 10 ml 02/01/19 20:23 02/04/19 05:25 Sodium Chloride Flush Syringe 10 Ml IV 10 ml PRN PRN Administration LINE FLUSH
[2019-02-11] MEDS: HEPARIN 5,000 UNIT/1 ML VIAL SUB-Q SCH (21:19)
[2019-02-12] MEDS: FUROSEMIDE 100 MG/10 ML INJ IV SCH ×2 (05:21→17:16)
--- NOTE | 2019-02-12 11:10 | Progress Note ---
Assessment and Plan - Patient Problems (1) Acute encephalopathy Current Visit: Yes Status: Acute (2) Acute kidney injury Current Visit: Yes Status: Acute (3) Acute respiratory failure with hypoxia Current Visit: Yes Status: Acute (4) Schizoaffective disorder Current Visit: Yes Status: Chronic (5) Hypertensive chronic kidney disease with stage 1 through stage 4 chronic kidney disease, or unspecified chronic kidney disease Current Visit: Yes Status: Chronic Subjective Principal diagnosis: acute kidney injury Interval history: awake and responsive on HF 60% 30l Objective Vital Signs - 12hr 02/11/19 02/12/19 02/12/19 23:27 03:38 07:41 Temperature 98.3 F 97.9 F Pulse Rate 91 H 101 H Respiratory 18 18 Rate Blood Pressure 125/83 112/79 Blood Pressure [Left] O2 Sat by Pulse 98 90 99 Oximetry 02/12/19 08:46 Temperature 98.8 F Pulse Rate 82 Respiratory 18 Rate Blood Pressure Blood Pressure 133/83 [Left] O2 Sat by Pulse 99 Oximetry Constitutional: no acute distress, asleep, other (on bipap) Eyes: non-icteric ENT: oropharynx moist Neck: supple Effort: normal Ascultation: Bilateral: diminished breath sounds Cardiovascular: regular rate and rhythm Gastrointestinal: normoactive bowel sounds Extremities: no cyanosis Neurologic: other (arousable) CBC and BMP: 02/11/19 06:07 02/11/19 06:07 ABG, PT/INR, D-dimer: ABG POC ABG pH 7.398 (7.35-7.45) 02/10/19 10:16 ABG pH 7.419 pH Units (7.350-7.450) 02/11/19 09:20 POC ABG pCO2 25.4 (35-45) L 02/10/19 10:16 ABG pCO2 27.0 mm Hg 02/11/19 09:20 ABG pO2 56.7 mm Hg (80.0-90.0) L 02/11/19 09:20 POC ABG HCO3 15.6 (22-26 mml/L) 02/10/19 10:16 POC ABG Total CO2 16 (23-27mmol/L) 02/10/19 10:16 POC ABG O2 Sat 76 02/10/19 10:16 ABG O2 Saturation 91.1 % (95.0-99.0) L 02/11/19 09:20 Abnormal lab findings: Abnormal Labs 02/01/19 02/01/19 02/01/19 16:38 16:38 16:50 WBC RBC Hgb Hct Plt Count 134 L Lymph % (Auto) 10.0 L Lymph # 0.8 L Seg Neutrophils % 86.1 H POC ABG pCO2 ABG pO2 ABG HCO3 ABG O2 Saturation ABG Base Excess ABG Hemoglobin Oxyhemoglobin Sodium Chloride 107.3 H Carbon Dioxide 20 L BUN 58 H Creatinine 7.5 H Glucose 125 H POC Glucose 119 H Hemoglobin A1c Calcium Phosphorus Magnesium Total Protein Albumin HDL Cholesterol Urine Creatinine Urine Total Protein Salicylates Acetaminophen 02/01/19 02/01/19 02/02/19 17:52 17:52 02:30 WBC RBC Hgb Hct Plt Count Lymph % (Auto) Lymph # Seg Neutrophils % POC ABG pCO2 ABG pO2 ABG HCO3 ABG O2 Saturation ABG Base Excess ABG Hemoglobin Oxyhemoglobin Sodium Chloride Carbon Dioxide BUN Creatinine Glucose POC Glucose Hemoglobin A1c Calcium Phosphorus Magnesium Total Protein Albumin HDL Cholesterol Urine Creatinine 115.8 H Urine Total Protein 198 H Salicylates < 0.3 L Acetaminophen < 5.0 L 02/02/19 02/02/19 02/03/19 05:53 05:53 06:34 WBC RBC Hgb 11.4 L Hct 35.4 L Plt Count 113 L Lymph % (Auto) Lymph # Seg Neutrophils % 73.8 H POC ABG pCO2 ABG pO2 ABG HCO3 ABG O2 Saturation ABG Base Excess ABG Hemoglobin Oxyhemoglobin Sodium 146 H Chloride 113.4 H 114.1 H Carbon Dioxide 18 L 17 L BUN 55 H 60 H Creatinine 6.9 H 7.1 H Glucose POC Glucose Hemoglobin A1c Calcium Phosphorus Magnesium Total Protein Albumin HDL Cholesterol Urine Creatinine Urine Total Protein Salicylates Acetaminophen 02/03/19 02/04/19 02/05/19 06:34 10:29 07:00 WBC RBC 3.63 L Hgb 10.8 L 10.1 L Hct 33.3 L 31.7 L Plt Count 121 L 125 L Lymph % (Auto) Lymph # Seg Neutrophils % POC ABG pCO2 ABG pO2 ABG HCO3 ABG O2 Saturation ABG Base Excess ABG Hemoglobin Oxyhemoglobin Sodium Chloride 115.9 H Carbon Dioxide 16 L BUN 62 H Creatinine 7.0 H Glucose 105 H POC Glucose Hemoglobin A1c Calcium Phosphorus Magnesium Total Protein Albumin HDL Cholesterol Urine Creatinine Urine Total Protein Salicylates Acetaminophen 02/05/19 02/06/19 02/06/19 07:00 08:43 21:06 WBC RBC Hgb Hct Plt Count Lymph % (Auto) Lymph # Seg Neutrophils % POC ABG pCO2 ABG pO2 ABG HCO3 ABG O2 Saturation ABG Base Excess ABG Hemoglobin Oxyhemoglobin Sodium Chloride 115.6 H 112.0 H Carbon Dioxide 14 L 17 L BUN 59 H 55 H Creatinine 6.8 H 6.7 H Glucose POC Glucose 134 H Hemoglobin A1c Calcium Phosphorus Magnesium Total Protein Albumin HDL Cholesterol Urine Creatinine Urine Total Protein Salicylates Acetaminophen 02/07/19 02/07/19 02/07/19 07:41 07:41 11:02 WBC RBC Hgb Hct Plt Count Lymph % (Auto) Lymph # Seg Neutrophils % POC ABG pCO2 ABG pO2 ABG HCO3 ABG O2 Saturation ABG Base Excess ABG Hemoglobin Oxyhemoglobin Sodium Chloride 113.2 H Carbon Dioxide 16 L BUN 56 H Creatinine 6.3 H Glucose POC Glucose Hemoglobin A1c < 4.0 L Calcium Phosphorus Magnesium Total Protein Albumin HDL Cholesterol 39 L Urine Creatinine Urine Total Protein Salicylates Acetaminophen 02/08/19 02/10/19 02/10/19 04:16 10:03 10:03 WBC 14.0 H RBC 3.51 L Hgb 9.7 L Hct 30.5 L Plt Count Lymph % (Auto) Lymph # Seg Neutrophils % POC ABG pCO2 ABG pO2 ABG HCO3 ABG O2 Saturation ABG Base Excess ABG Hemoglobin Oxyhemoglobin Sodium Chloride 113.2 H 110.9 H Carbon Dioxide 16 L 13 L BUN 55 H 65 H Creatinine 6.6 H 7.1 H Glucose 107 H POC Glucose Hemoglobin A1c Calcium 7.9 L 7.9 L Phosphorus 2.20 L Magnesium 1.60 L Total Protein 5.9 L Albumin 3.1 L HDL Cholesterol Urine Creatinine Urine Total Protein Salicylates Acetaminophen 02/10/19 02/11/19 02/11/19 10:16 06:07 06:07 WBC 14.8 H RBC 3.58 L Hgb 9.9 L Hct 30.9 L Plt Count Lymph % (Auto) Lymph # Seg Neutrophils % POC ABG pCO2 25.4 L ABG pO2 ABG HCO3 ABG O2 Saturation ABG Base Excess ABG Hemoglobin Oxyhemoglobin Sodium Chloride 114.6 H Carbon Dioxide 16 L BUN 75 H Creatinine 8.2 H Glucose 107 H POC Glucose Hemoglobin A1c Calcium Phosphorus Magnesium Total Protein Albumin HDL Cholesterol Urine Creatinine Urine Total Protein Salicylates Acetaminophen 02/11/19 09:20 WBC RBC Hgb Hct Plt Count Lymph % (Auto) Lymph # Seg Neutrophils % POC ABG pCO2 ABG pO2 56.7 L ABG HCO3 17.1 L ABG O2 Saturation 91.1 L ABG Base Excess -6.4 L ABG Hemoglobin 9.5 L Oxyhemoglobin 89.2 L Sodium Chloride Carbon Dioxide BUN Creatinine Glucose POC Glucose Hemoglobin A1c Calcium Phosphorus Magnesium Total Protein Albumin HDL Cholesterol Urine Creatinine Urine Total Protein Salicylates Acetaminophen Allied health notes reviewed: nursing
[2019-02-12] MEDS: hydrALAZINE 100 MG TAB PO SCH ×3 (12:00→21:25)
--- NOTE | 2019-02-12 12:01 | XRay Report ---
CHEST 1 VIEW INDICATION / CLINICAL INFORMATION: pulm edema. COMPARISON: Chest radiograph 02/11/2019 FINDINGS: SUPPORT DEVICES: Unchanged right shunt catheter. HEART / MEDIASTINUM: No significant abnormality. LUNGS / PLEURA: Patchy bilateral airspace opacities are not significantly changed. No pneumothorax. ADDITIONAL FINDINGS: IVC filter in place. IMPRESSION: 1. No significant change of patchy bilateral airspace opacities. Signer Name: Anne Grant MD Signed: 02/12/2019 11:57 AM Workstation Name: [id number]
[2019-02-12] MEDS: amLODIPine 10 MG TAB PO SCH (12:10)
[2019-02-12] MEDS: carvediloL 6.25 MG TAB PO SCH ×2 (12:15→21:27)
[2019-02-12] MEDS: DOCUSATE SODIUM 100 MG CAP PO SCH ×2 (12:16→21:15)
[2019-02-12] MEDS: NICOTINE 14 MG/24 HR PATCH TD SCH (12:16)
[2019-02-12] MEDS: ARIPiprazole 5 MG TAB PO SCH (12:16)
[2019-02-12] MEDS: PANTOPRAZOLE 40 MG TAB PO SCH (12:16)
[2019-02-12] MEDS: HEPARIN 5,000 UNIT/1 ML VIAL SUB-Q SCH ×2 (12:17→21:15)
[2019-02-12] MEDS: cloNIDine 0.2 MG TAB PO SCH ×2 (12:18→21:26)
--- NOTE | 2019-02-12 12:50 | Progress Note ---
Assessment and Plan - Patient Problems (1) Renal failure Current Visit: Yes Status: Chronic Qualifiers: Renal failure chronicity: unspecified chronicity Qualified Code(s): N19 - Unspecified kidney failure Plan to address problem: Patient has significant renal failure. Discussed with primary attending, and based on his significant psychiatric issues he is not an ideal candidate for renal replacement therapy/dialysis. Would recommend conservative management at this point. We'll continue with current Lasix regimen 60 mg IV twice a day with titration as needed. He seems to now be responding more to the diuretic regimen. There is no acute indications for renal placement therapy at present time. We'll continue to monitor. Labs pending this am (2) Acute respiratory failure with hypoxia Current Visit: Yes Status: Acute Plan to address problem: Continue current IV diuretic regimen. Strict I's and O's. Avoid standing IV fluids. Chest x-ray reviewed. Continue on high flow nasal cannula per primary team with weaning as tolerated. We'll continue to monitor. (3) Hypertensive chronic kidney disease with stage 1 through stage 4 chronic kidney disease, or unspecified chronic kidney disease Current Visit: Yes Status: Chronic Plan to address problem: Continue to monitor blood pressures under current regimen. (4) Proteinuria Current Visit: Yes Status: Acute Plan to address problem: Non nephrotic range proteinuria. Will continue to monitor. (5) Schizoaffective disorder Current Visit: Yes Status: Chronic Plan to address problem: Management per primary attending Subjective Date of service: 02/12/19 Principal diagnosis: acute kidney injury Interval history: Being weaned down on HFNC, now down to FiO2 45%. No new labs this morning. I/O reviewed and has been non-oliguric with >1L UO noted over the last 24 hours. Continues on lasix 60 mg IV BID. Objective - Vital Signs Vital signs: Vital Signs - 12hr 02/12/19 02/12/19 02/12/19 03:38 07:41 08:40 Temperature 97.9 F Pulse Rate 101 H 93 H Respiratory 18 Rate Blood Pressure 112/79 133/83 Blood Pressure [Left] O2 Sat by Pulse 90 99 100 Oximetry 02/12/19 02/12/19 02/12/19 08:46 12:08 12:10 Temperature 98.8 F 98.5 F Pulse Rate 82 100 H 101 H Respiratory 18 18 Rate Blood Pressure 137/80 Blood Pressure 133/83 [Left] O2 Sat by Pulse 99 100 Oximetry 02/12/19 02/12/19 12:15 12:18 Temperature Pulse Rate 101 H 101 H Respiratory Rate Blood Pressure Blood Pressure [Left] O2 Sat by Pulse Oximetry - General Appearance General appearance: appears stated age, chronically ill EENT: ATNC, PERRL Neck: no JVD, no thyromegaly Respiratory: Present: Ronchi Cardiology: regular, S1S2 Gastrointestinal: normal, normoactive bowel sounds Integumentary: no rash Neurologic: confused, disoriented Psychiatric: cooperative, pressured speech - Lab 02/11/19 06:07 02/11/19 06:07 Most recent lab results ABG pH 7.419 pH Units (7.350-7.450) 02/11/19 09:20 ABG pCO2 27.0 mm Hg 02/11/19 09:20 ABG pO2 56.7 mm Hg (80.0-90.0) L 02/11/19 09:20 ABG HCO3 17.1 mmol/L (20.0-26.0) L 02/11/19 09:20 ABG O2 Saturation 91.1 % (95.0-99.0) L 02/11/19 09:20 Calcium 8.5 mg/dL (8.4-10.2) 02/11/19 06:07 Phosphorus 2.20 mg/dL (2.5-4.5) L 02/10/19 10:03 Magnesium 1.60 mg/dL (1.7-2.3) L 02/10/19 10:03 Urine Creatinine 115.8 mg/dL (0.1-20.0) H 02/02/19 02:30 Urine Sodium 99 mmol/L 02/02/19 02:30 Urine Total Protein 198 mg/dL (5-11.8) H 02/02/19 02:30 - Imaging Chest x-ray: report reviewed, image reviewed - Allied health notes Allied health notes reviewed: nursing Medications & Allergies - Medications Allergies/Adverse Reactions: Allergies No Known Allergies Allergy (Unverified 04/17/17 13:03) Home Medications: Home Medications Medication Instructions Recorded Confirmed Last Taken Type ARIPiprazole [Abilify] 20 mg PO QDAY 02/03/19 02/03/19 1 Day Ago History ~02/02/19 Losartan/Hydrochlorothiazide 1 each PO QDAY 02/03/19 02/03/19 Unknown History [Losartan-Hctz 100-25 mg Tab] Active Medications: Generic Name Dose Route Start Last Admin Trade Name Freq PRN Reason Stop Dose Admin Acetaminophen 650 mg 02/01/19 20:23 02/10/19 09:42 Tylenol PO 650 mg Q4H PRN Administration Pain MILD(1-3)/Fever >100.5/QUAN Amlodipine Besylate 10 mg 02/01/19 21:00 02/12/19 12:10 Amlodipine PO 10 mg QDAY ENOC Administration Aripiprazole 5 mg 02/06/19 13:00 02/12/19 12:16 Aripiprazole PO 5 mg QDAY ENOC Administration Carvedilol 6.25 mg 02/01/19 21:21 02/12/19 12:15 Coreg PO 6.25 mg BID ENOC Administration Clonidine HCl 0.2 mg 02/06/19 11:30 02/12/19 12:18 Catapres PO 0.2 mg Q12HR ENOC Administration Docusate Sodium 100 mg 02/01/19 22:00 02/12/19 12:16 Colace PO 100 mg BID ENOC Administration Furosemide 60 mg 02/10/19 18:00 02/12/19 05:21 Lasix IV 60 mg 0600,1800 ENOC Administration Haloperidol Lactate 5 mg 02/08/19 11:09 02/09/19 21:03 Haldol IM 5 mg Q6H PRN Administration Agitation Heparin Sodium (Porcine) 5,000 unit 02/11/19 22:00 02/12/19 12:17 Heparin SUB-Q 5,000 unit Q12HR ENOC Administration Hydralazine HCl 10 mg 02/01/19 20:12 02/07/19 22:55 Apresoline IV 10 mg Q4HR PRN Administration Blood Pressure Hydralazine HCl 100 mg 02/01/19 21:21 02/12/19 12:21 Apresoline PO 100 mg TID ENOC Administration Levofloxacin/Dextrose 500 mg in 100 mls @ 66.667 mls/hr 02/12/19 10:00 02/12 12:07 Levaquin 500mg/100ml IV 66.667 mls/hr Q48H ENOC Administration Protocol Nicotine 14 mg 02/02/19 10:00 02/12/19 12:16 Habitrol TD 14 mg QDAY ENOC Administration Ondansetron HCl 4 mg 02/01/19 20:23 02/07/19 22:45 Zofran IV 4 mg Q8H PRN Administration Nausea And Vomiting Pantoprazole Sodium 40 mg 02/06/19 11:30 02/12/19 12:16 Protonix PO 40 mg QDAY ENOC Administration Sodium Chloride 10 ml 02/01/19 22:00 02/12/19 12:19 Sodium Chloride Flush Syringe 10 Ml IV 10 ml BID ENOC Administration Sodium Chloride 10 ml 02/01/19 20:23 02/04/19 05:25 Sodium Chloride Flush Syringe 10 Ml IV 10 ml PRN PRN Administration LINE FLUSH
--- NOTE | 2019-02-12 17:20 | Progress Note ---
Assessment and Plan Assessment and plan: Acute respiratory failure with hypoxia Patient developed shortness of breath, Oxygen desaturation overnight CHR shows bilat opacities, likely edema patient evaluated by Nephrology and lasix ordered Consulted Pulmnonology and I discussed with Dr. Jackson Started iv Antibiotics until pneumonia ruled out since he has fever, leukocytosis Fever Blood culture x 2 To r/o sepsis Started empiric Antibiotics Acute encephalopathy -CT head negative -Afebrile, no leukocytosis -Continue Neuro checks -Neurology consulted and ruled out focal seizure, received IV Keppra in the ER -Hold Bacolfen d/t renal function - Possibly underlying psych issues also contributing - Ordered for mental health recommendation Acute unspecified psychosis vs delirium - Started on home medication Abilify 5 mg PO daily, psych following MIKEL on CKD 4 - vasomotor nephropathy versus progression of underlying chronic medical disease -Cr on admission 7.5 -CT abdomen and pelvis showed Indeterminant renal masses -Continue Hydrate with IVF -Avoid nephrotoxic agents -Renally dose all meds -Nephrology following -Discussed with nephrology Agitation haldol prn Hypertensive urgency -BP on admission 204/154 -Hx Hypertension -BP uncontrolled. Continue to adjust medications as needed N/V - resolved, likely from viral gastritis or GERD Hx Right subarachnoid hemorrhage, status post right frontal craniotomy Hx aneurysm, status post clipping -Continue supportive care -Neurology recommended outpatient follow Tobacco abuse -Current every day smoker -Counseled for cessation -Nicotine patch when necessary History of bipolar History of schizophrenia -Mental Health consult pending Thrombocytopenia. - cont to Monitor DVT PPX -SCD's Awaiting SNF placement History Interval history: Patient initially presented with nausea, vomiting, generalized weakness, Altered mental status, Agitation 2 nights ago had shortness of breath, Oxygen desat feels better after BIPAP Hospitalist Physical - Physical exam Narrative exam: Gen: Not in acute distress, lying in bed, HEENT: Normocephalic, atraumatic Neck: supple, no JVD Heart: S1 and S2 reg, no murmurs, rubs or gallop Lungs: Bilateral crackles, no wheeze, Abd: soft, non tender, non distended, normal BS, Ext: No edema, no clubbing, no cyanosis Neuro: Awake, alert, no focal neurological signs - Constitutional Vitals: Temp Pulse Resp BP Pulse Ox 98.5 F 101 H 18 137/80 95 02/12/19 12:08 02/12/19 12:18 02/12/19 12:08 02/12/19 12:08 02/12/19 13:46 Results - Labs CBC & Chem 7: 02/11/19 06:07 02/11/19 06:07 Labs: Laboratory Last Values WBC 14.8 K/mm3 (4.5-11.0) H 02/11/19 06:07 RBC 3.58 M/mm3 (3.65-5.03) L 02/11/19 06:07 Hgb 9.9 gm/dl (11.8-15.2) L 02/11/19 06:07 Hct 30.9 % (35.5-45.6) L 02/11/19 06:07 MCV 86 fl (84-94) 02/11/19 06:07 MCH 28 pg (28-32) 02/11/19 06:07 MCHC 32 % (32-34) 02/11/19 06:07 RDW 14.2 % (13.2-15.2) 02/11/19 06:07 Plt Count 190 K/mm3 (140-440) 02/11/19 06:07 Lymph % (Auto) 18.2 % (13.4-35.0) 02/02/19 05:53 [place] % (Auto) 7.1 % (0.0-7.3) 02/02/19 05:53 Eos % (Auto) 0.5 % (0.0-4.3) 02/02/19 05:53 Baso % (Auto) 0.4 % (0.0-1.8) 02/02/19 05:53 Lymph # 1.8 K/mm3 (1.2-5.4) 02/02/19 05:53 [place] # 0.7 K/mm3 (0.0-0.8) 02/02/19 05:53 Eos # 0.0 K/mm3 (0.0-0.4) 02/02/19 05:53 Baso # 0.0 K/mm3 (0.0-0.1) 02/02/19 05:53 Seg Neutrophils % 73.8 % (40.0-70.0) H 02/02/19 05:53 Seg Neutrophils # 7.2 K/mm3 (1.8-7.7) 02/02/19 05:53 POC ABG pH 7.398 (7.35-7.45) 02/10/19 10:16 ABG pH 7.419 pH Units (7.350-7.450) 02/11/19 09:20 POC ABG pCO2 25.4 (35-45) L 02/10/19 10:16 ABG pCO2 27.0 mm Hg 02/11/19 09:20 ABG pO2 56.7 mm Hg (80.0-90.0) L 02/11/19 09:20 POC ABG HCO3 15.6 (22-26 mml/L) 02/10/19 10:16 ABG HCO3 17.1 mmol/L (20.0-26.0) L 02/11/19 09:20 POC ABG Total CO2 16 (23-27mmol/L) 02/10/19 10:16 POC ABG O2 Sat 76 02/10/19 10:16 ABG O2 Saturation 91.1 % (95.0-99.0) L 02/11/19 09:20 ABG O2 Content 12.0 (0.0-44) 02/11/19 09:20 POC ABG Base Excess -9 ((-2) - (+3)mmol/L) 02/10/19 10:16 ABG Base Excess -6.4 mmol/L (-2.0-3.0) L 02/11/19 09:20 ABG Hemoglobin 9.5 gm/dl (14.0-18.0) L 02/11/19 09:20 ABG Carboxyhemoglobin 1.5 % (0.0-5.0) 02/11/19 09:20 ABG Methemoglobin 0.6 % (0.0-1.5) 02/11/19 09:20 Oxyhemoglobin 89.2 % (95.0-99.0) L 02/11/19 09:20 FiO2 60 % 02/11/19 09:20 Sodium 144 mmol/L (137-145) 02/11/19 06:07 Potassium 4.3 mmol/L (3.6-5.0) 02/11/19 06:07 Chloride 114.6 mmol/L (98-107) H 02/11/19 06:07 Carbon Dioxide 16 mmol/L (22-30) L 02/11/19 06:07 Anion Gap 18 mmol/L 02/11/19 06:07 BUN 75 mg/dL (9-20) H 02/11/19 06:07 Creatinine 8.2 mg/dL (0.8-1.5) H 02/11/19 06:07 Estimated GFR 8 ml/min 02/11/19 06:07 BUN/Creatinine Ratio 9 % 02/11/19 06:07 Glucose 107 mg/dL (75-100) H 02/11/19 06:07 POC Glucose 134 (70-105) H 02/06/19 21:06 Hemoglobin A1c < 4.0 % (4-6) L 02/07/19 07:41 Calcium 8.5 mg/dL (8.4-10.2) 02/11/19 06:07 Phosphorus 2.20 mg/dL (2.5-4.5) L 02/10/19 10:03 Magnesium 1.60 mg/dL (1.7-2.3) L 02/10/19 10:03 Total Bilirubin 0.40 mg/dL (0.1-1.2) 02/10/19 10:03 AST 27 units/L (5-40) 02/10/19 10:03 ALT 23 units/L (7-56) 02/10/19 10:03 Alkaline Phosphatase 70 units/L (35-129) 02/10/19 10:03 Ammonia 34.0 umol/L (25-60) 02/01/19 17:52 Total Creatine Kinase 66 units/L (55-170) 02/01/19 17:52 Total Protein 5.9 g/dL (6.3-8.2) L 02/10/19 10:03 Albumin 3.1 g/dL (3.9-5) L 02/10/19 10:03 Albumin/Globulin Ratio 1.1 % 02/10/19 10:03 Triglycerides 135 mg/dL (2-149) 02/07/19 07:41 Cholesterol 155 mg/dL (50-199) 02/07/19 07:41 LDL Cholesterol Direct 101 mg/dL (50-130) 02/07/19 07:41 HDL Cholesterol 39 mg/dL (40-59) L 02/07/19 07:41 Cholesterol/HDL Ratio 3.97 % 02/07/19 07:41 TSH 1.990 mlU/mL (0.270-4.200) 02/01/19 17:52 Urine Color Yellow (Yellow) 02/01/19 20:45 Urine Turbidity Slightly-cloudy (Clear) 02/01/19 20:45 Urine pH 5.0 (5.0-7.0) 02/01/19 20:45 Ur Specific [place] 1.013 (1.003-1.030) 02/01/19 20:45 Urine Protein >500 mg/dL (Negative) 02/01/19 20:45 Urine Glucose (UA) Neg mg/dL (Negative) 02/01/19 20:45 Urine Ketones Neg mg/dL (Negative) 02/01/19 20:45 Urine Blood Sm (Negative) 02/01/19 20:45 Urine Nitrite Neg (Negative) 02/01/19 20:45 Urine Bilirubin Neg (Negative) 02/01/19 20:45 Urine Urobilinogen < 2.0 mg/dL (<2.0) 02/01/19 20:45 Ur Leukocyte Esterase Neg (Negative) 02/01/19 20:45 Urine WBC (Auto) 2.0 /HPF (0.0-6.0) 02/01/19 20:45 Urine RBC (Auto) 3.0 /HPF (0.0-6.0) 02/01/19 20:45 U Epithel Cells (Auto) 1.0 /HPF (0-13.0) 02/01/19 20:45 Urine Bacteria (Auto) 1+ /HPF (Negative) 02/01/19 20:45 Urine Mucus Few /HPF 02/01/19 20:45 Urine Yeast (Budding) 1+ /HPF 02/01/19 20:45 Urine Eosinophils None seen (None Seen) 02/02/19 02:30 Urine Creatinine 115.8 mg/dL (0.1-20.0) H 02/02/19 02:30 Urine Sodium 99 mmol/L 02/02/19 02:30 Urine Total Protein 198 mg/dL (5-11.8) H 02/02/19 02:30 Salicylates < 0.3 mg/dL (2.8-20.0) L 02/01/19 17:52 Acetaminophen < 5.0 ug/mL (10.0-30.0) L 02/01/19 17:52 Plasma/Serum Alcohol < 0.01 % (0-0.07) 02/01/19 17:52 Active Medications - Current Medications Current Medications: Generic Name Dose Route Start Last Admin Trade Name Freq PRN Reason Stop Dose Admin Acetaminophen 650 mg 02/01/19 20:23 02/10/19 09:42 Tylenol PO 650 mg Q4H PRN Administration Pain MILD(1-3)/Fever >100.5/QUAN Amlodipine Besylate 10 mg 02/01/19 21:00 02/12/19 12:10 Amlodipine PO 10 mg QDAY ENOC Administration Aripiprazole 5 mg 02/06/19 13:00 02/12/19 12:16 Aripiprazole PO 5 mg QDAY ENOC Administration Carvedilol 6.25 mg 02/01/19 21:21 02/12/19 12:15 Coreg PO 6.25 mg BID ENOC Administration Clonidine HCl 0.2 mg 02/06/19 11:30 02/12/19 12:18 Catapres PO 0.2 mg Q12HR ENOC Administration Docusate Sodium 100 mg 02/01/19 22:00 02/12/19 12:16 Colace PO 100 mg BID ENOC Administration Furosemide 60 mg 02/10/19 18:00 02/12/19 17:16 Lasix IV 60 mg 0600,1800 ENOC Administration Haloperidol Lactate 5 mg 02/08/19 11:09 02/09/19 21:03 Haldol IM 5 mg Q6H PRN Administration Agitation Heparin Sodium (Porcine) 5,000 unit 02/11/19 22:00 02/12/19 12:17 Heparin SUB-Q 5,000 unit Q12HR ENOC Administration Hydralazine HCl 10 mg 02/01/19 20:12 02/07/19 22:55 Apresoline IV 10 mg Q4HR PRN Administration Blood Pressure Hydralazine HCl 100 mg 02/01/19 21:21 02/12/19 16:00 Apresoline PO Not Given TID ENOC Levofloxacin/Dextrose 500 mg in 100 mls @ 66.667 mls/hr 02/12/19 10:00 02/12/19 12:07 Levaquin 500mg/100ml IV 66.667 mls/hr Q48H ENOC Administration Protocol Nicotine 14 mg 02/02/19 10:00 02/12/19 12:16 Habitrol TD 14 mg QDAY ENOC Administration Ondansetron HCl 4 mg 02/01/19 20:23 02/07/19 22:45 Zofran IV 4 mg Q8H PRN Administration Nausea And Vomiting Pantoprazole Sodium 40 mg 02/06/19 11:30 02/12/19 12:16 Protonix PO 40 mg QDAY ENOC Administration Sodium Chloride 10 ml 02/01/19 22:00 02/12/19 12:19 Sodium Chloride Flush Syringe 10 Ml IV 10 ml BID ENOC Administration Sodium Chloride 10 ml 02/01/19 20:23 02/04/19 05:25 Sodium Chloride Flush Syringe 10 Ml IV 10 ml PRN PRN Administration LINE FLUSH Nutrition/Malnutrition Assess - Dietary Evaluation Nutrition/Malnutrition Findings: Nutrition Notes Start: 02/03/19 09:42 Freq: Status: Active Protocol: Document 02/08/19 10:03 LP (Rec: 02/08/19 10:05 LP [id number]) Nutrition Notes Need for Assessment generated from: LOS Initial or Follow up Brief Note Subjective/Other Information Screen for LOS. Pt continues eating well. Consuming at least 75% of meals. Nutrition Intervention Revisit per MD consult or patient Sign Off request:
--- NOTE | 2019-02-12 17:22 | Progress Note ---
Assessment and Plan Assessment and plan: Acute respiratory failure with hypoxia Patient developed shortness of breath, Oxygen desaturation 2 nights ago CHR shows bilat opacities, likely edema patient evaluated by Nephrology and edwardo ordered Consulted Pulmonology and I discussed with Dr. Jackson Started iv Antibiotics until pneumonia ruled out since he has fever, leukocytosis Fever of 102.4 on 02/10 Blood culture x 2 To r/o sepsis Started empiric Antibiotics Acute encephalopathy -CT head negative -Afebrile, no leukocytosis -Continue Neuro checks -Neurology consulted and ruled out focal seizure, received IV Keppra in the ER -Hold Bacolfen d/t renal function - Possibly underlying psych issues also contributing - Mental health evaluation done Acute unspecified psychosis vs delirium - Started on home medication Abilify 5 mg PO daily, psych following MIKEL on CKD 4 - vasomotor nephropathy versus progression of underlying chronic medical disease -Cr on admission 7.5 -CT abdomen and pelvis showed Indeterminant renal masses -Continue Hydrate with IVF -Avoid nephrotoxic agents -Renally dose all meds -Nephrology following -Discussed with nephrology Agitation haldol prn Hypertensive urgency -BP on admission 204/154 -Hx Hypertension -BP uncontrolled. Continue to adjust medications as needed N/V - resolved, likely from viral gastritis or GERD Hx Right subarachnoid hemorrhage, status post right frontal craniotomy Hx aneurysm, status post clipping -Continue supportive care -Neurology recommended outpatient follow Tobacco abuse -Current every day smoker -Counseled for cessation -Nicotine patch when necessary History of bipolar History of schizophrenia -Mental Health consult pending Thrombocytopenia. - cont to Monitor DVT PPX -SCD's Awaiting SNF placement History Interval history: Patient initially presented with nausea, vomiting, generalized weakness, Altered mental status, Agitation 2 nights ago had shortness of breath, Oxygen desat feels better after BIPAP Hospitalist Physical - Physical exam Narrative exam: Gen: Not in acute distress, lying in bed,now on high flow Oxygen by NC HEENT: Normocephalic, atraumatic Neck: supple, no JVD Heart: S1 and S2 reg, no murmurs, rubs or gallop Lungs: Bilateral crackles, no wheeze, Abd: soft, non tender, non distended, normal BS, Ext: No edema, no clubbing, no cyanosis Neuro: Awake, alert, no focal neurological signs - Constitutional Vitals: Temp Pulse Resp BP Pulse Ox 98.3 F 101 H 18 109/69 95 02/12/19 17:21 02/12/19 12:18 02/12/19 17:21 02/12/19 17:21 02/12/19 13:46 Results - Labs CBC & Chem 7: 02/11/19 06:07 02/11/19 06:07 Labs: Laboratory Last Values WBC 14.8 K/mm3 (4.5-11.0) H 02/11/19 06:07 RBC 3.58 M/mm3 (3.65-5.03) L 02/11/19 06:07 Hgb 9.9 gm/dl (11.8-15.2) L 02/11/19 06:07 Hct 30.9 % (35.5-45.6) L 02/11/19 06:07 MCV 86 fl (84-94) 02/11/19 06:07 MCH 28 pg (28-32) 02/11/19 06:07 MCHC 32 % (32-34) 02/11/19 06:07 RDW 14.2 % (13.2-15.2) 02/11/19 06:07 Plt Count 190 K/mm3 (140-440) 02/11/19 06:07 Lymph % (Auto) 18.2 % (13.4-35.0) 02/02/19 05:53 [place] % (Auto) 7.1 % (0.0-7.3) 02/02/19 05:53 Eos % (Auto) 0.5 % (0.0-4.3) 02/02/19 05:53 Baso % (Auto) 0.4 % (0.0-1.8) 02/02/19 05:53 Lymph # 1.8 K/mm3 (1.2-5.4) 02/02/19 05:53 [place] # 0.7 K/mm3 (0.0-0.8) 02/02/19 05:53 Eos # 0.0 K/mm3 (0.0-0.4) 02/02/19 05:53 Baso # 0.0 K/mm3 (0.0-0.1) 02/02/19 05:53 Seg Neutrophils % 73.8 % (40.0-70.0) H 02/02/19 05:53 Seg Neutrophils # 7.2 K/mm3 (1.8-7.7) 02/02/19 05:53 POC ABG pH 7.398 (7.35-7.45) 02/10/19 10:16 ABG pH 7.419 pH Units (7.350-7.450) 02/11/19 09:20 POC ABG pCO2 25.4 (35-45) L 02/10/19 10:16 ABG pCO2 27.0 mm Hg 02/11/19 09:20 ABG pO2 56.7 mm Hg (80.0-90.0) L 02/11/19 09:20 POC ABG HCO3 15.6 (22-26 mml/L) 02/10/19 10:16 ABG HCO3 17.1 mmol/L (20.0-26.0) L 02/11/19 09:20 POC ABG Total CO2 16 (23-27mmol/L) 02/10/19 10:16 POC ABG O2 Sat 76 02/10/19 10:16 ABG O2 Saturation 91.1 % (95.0-99.0) L 02/11/19 09:20 ABG O2 Content 12.0 (0.0-44) 02/11/19 09:20 POC ABG Base Excess -9 ((-2) - (+3)mmol/L) 02/10/19 10:16 ABG Base Excess -6.4 mmol/L (-2.0-3.0) L 02/11/19 09:20 ABG Hemoglobin 9.5 gm/dl (14.0-18.0) L 02/11/19 09:20 ABG Carboxyhemoglobin 1.5 % (0.0-5.0) 02/11/19 09:20 ABG Methemoglobin 0.6 % (0.0-1.5) 02/11/19 09:20 Oxyhemoglobin 89.2 % (95.0-99.0) L 02/11/19 09:20 FiO2 60 % 02/11/19 09:20 Sodium 144 mmol/L (137-145) 02/11/19 06:07 Potassium 4.3 mmol/L (3.6-5.0) 02/11/19 06:07 Chloride 114.6 mmol/L (98-107) H 02/11/19 06:07 Carbon Dioxide 16 mmol/L (22-30) L 02/11/19 06:07 Anion Gap 18 mmol/L 02/11/19 06:07 BUN 75 mg/dL (9-20) H 02/11/19 06:07 Creatinine 8.2 mg/dL (0.8-1.5) H 02/11/19 06:07 Estimated GFR 8 ml/min 02/11/19 06:07 BUN/Creatinine Ratio 9 % 02/11/19 06:07 Glucose 107 mg/dL (75-100) H 02/11/19 06:07 POC Glucose 134 (70-105) H 02/06/19 21:06 Hemoglobin A1c < 4.0 % (4-6) L 02/07/19 07:41 Calcium 8.5 mg/dL (8.4-10.2) 02/11/19 06:07 Phosphorus 2.20 mg/dL (2.5-4.5) L 02/10/19 10:03 Magnesium 1.60 mg/dL (1.7-2.3) L 02/10/19 10:03 Total Bilirubin 0.40 mg/dL (0.1-1.2) 02/10/19 10:03 AST 27 units/L (5-40) 02/10/19 10:03 ALT 23 units/L (7-56) 02/10/19 10:03 Alkaline Phosphatase 70 units/L (35-129) 02/10/19 10:03 Ammonia 34.0 umol/L (25-60) 02/01/19 17:52 Total Creatine Kinase 66 units/L (55-170) 02/01/19 17:52 Total Protein 5.9 g/dL (6.3-8.2) L 02/10/19 10:03 Albumin 3.1 g/dL (3.9-5) L 02/10/19 10:03 Albumin/Globulin Ratio 1.1 % 02/10/19 10:03 Triglycerides 135 mg/dL (2-149) 02/07/19 07:41 Cholesterol 155 mg/dL (50-199) 02/07/19 07:41 LDL Cholesterol Direct 101 mg/dL (50-130) 02/07/19 07:41 HDL Cholesterol 39 mg/dL (40-59) L 02/07/19 07:41 Cholesterol/HDL Ratio 3.97 % 02/07/19 07:41 TSH 1.990 mlU/mL (0.270-4.200) 02/01/19 17:52 Urine Color Yellow (Yellow) 02/01/19 20:45 Urine Turbidity Slightly-cloudy (Clear) 02/01/19 20:45 Urine pH 5.0 (5.0-7.0) 02/01/19 20:45 Ur Specific [place] 1.013 (1.003-1.030) 02/01/19 20:45 Urine Protein >500 mg/dL (Negative) 02/01/19 20:45 Urine Glucose (UA) Neg mg/dL (Negative) 02/01/19 20:45 Urine Ketones Neg mg/dL (Negative) 02/01/19 20:45 Urine Blood Sm (Negative) 02/01/19 20:45 Urine Nitrite Neg (Negative) 02/01/19 20:45 Urine Bilirubin Neg (Negative) 02/01/19 20:45 Urine Urobilinogen < 2.0 mg/dL (<2.0) 02/01/19 20:45 Ur Leukocyte Esterase Neg (Negative) 02/01/19 20:45 Urine WBC (Auto) 2.0 /HPF (0.0-6.0) 02/01/19 20:45 Urine RBC (Auto) 3.0 /HPF (0.0-6.0) 02/01/19 20:45 U Epithel Cells (Auto) 1.0 /HPF (0-13.0) 02/01/19 20:45 Urine Bacteria (Auto) 1+ /HPF (Negative) 02/01/19 20:45 Urine Mucus Few /HPF 02/01/19 20:45 Urine Yeast (Budding) 1+ /HPF 02/01/19 20:45 Urine Eosinophils None seen (None Seen) 02/02/19 02:30 Urine Creatinine 115.8 mg/dL (0.1-20.0) H 02/02/19 02:30 Urine Sodium 99 mmol/L 02/02/19 02:30 Urine Total Protein 198 mg/dL (5-11.8) H 02/02/19 02:30 Salicylates < 0.3 mg/dL (2.8-20.0) L 02/01/19 17:52 Acetaminophen < 5.0 ug/mL (10.0-30.0) L 02/01/19 17:52 Plasma/Serum Alcohol < 0.01 % (0-0.07) 02/01/19 17:52 Active Medications - Current Medications Current Medications: Generic Name Dose Route Start Last Admin Trade Name Freq PRN Reason Stop Dose Admin Acetaminophen 650 mg 02/01/19 20:23 02/10/19 09:42 Tylenol PO 650 mg Q4H PRN Administration Pain MILD(1-3)/Fever >100.5/QUAN Amlodipine Besylate 10 mg 02/01/19 21:00 02/12/19 12:10 Amlodipine PO 10 mg QDAY ENOC Administration Aripiprazole 5 mg 02/06/19 13:00 02/12/19 12:16 Aripiprazole PO 5 mg QDAY ENOC Administration Carvedilol 6.25 mg 02/01/19 21:21 02/12/19 12:15 Coreg PO 6.25 mg BID ENOC Administration Clonidine HCl 0.2 mg 02/06/19 11:30 02/12/19 12:18 Catapres PO 0.2 mg Q12HR ENOC Administration Docusate Sodium 100 mg 02/01/19 22:00 02/12/19 12:16 Colace PO 100 mg BID ENOC Administration Furosemide 60 mg 02/10/19 18:00 02/12/19 17:16 Lasix IV 60 mg 0600,1800 ENOC Administration Haloperidol Lactate 5 mg 02/08/19 11:09 02/09/19 21:03 Haldol IM 5 mg Q6H PRN Administration Agitation Heparin Sodium (Porcine) 5,000 unit 02/11/19 22:00 02/12/19 12:17 Heparin SUB-Q 5,000 unit Q12HR ENOC Administration Hydralazine HCl 10 mg 02/01/19 20:12 02/07/19 22:55 Apresoline IV 10 mg Q4HR PRN Administration Blood Pressure Hydralazine HCl 100 mg 02/01/19 21:21 02/12/19 16:00 Apresoline PO Not Given TID ENOC Levofloxacin/Dextrose 500 mg in 100 mls @ 66.667 mls/hr 02/12/19 10:00 02/12/19 12:07 Levaquin 500mg/100ml IV 66.667 mls/hr Q48H ENOC Administration Protocol Nicotine 14 mg 02/02/19 10:00 02/12/19 12:16 Habitrol TD 14 mg QDAY ENOC Administration Ondansetron HCl 4 mg 02/01/19 20:23 02/07/19 22:45 Zofran IV 4 mg Q8H PRN Administration Nausea And Vomiting Pantoprazole Sodium 40 mg 02/06/19 11:30 02/12/19 12:16 Protonix PO 40 mg QDAY ENOC Administration Sodium Chloride 10 ml 02/01/19 22:00 02/12/19 12:19 Sodium Chloride Flush Syringe 10 Ml IV 10 ml BID ENOC Administration Sodium Chloride 10 ml 02/01/19 20:23 02/04/19 05:25 Sodium Chloride Flush Syringe 10 Ml IV 10 ml PRN PRN Administration LINE FLUSH Nutrition/Malnutrition Assess - Dietary Evaluation Nutrition/Malnutrition Findings: Nutrition Notes Start: 02/03/19 09:42 Freq: Status: Active Protocol: Document 02/08/19 10:03 LP (Rec: 02/08/19 10:05 LP [id number]) Nutrition Notes Need for Assessment generated from: LOS Initial or Follow up Brief Note Subjective/Other Information Screen for LOS. Pt continues eating well. Consuming at least 75% of meals. Nutrition Intervention Revisit per MD consult or patient Sign Off request:
[2019-02-13] MEDS: FUROSEMIDE 100 MG/10 ML INJ IV SCH (06:02)
[2019-02-13] MEDS: hydrALAZINE 100 MG TAB PO SCH ×3 (08:00→21:49)
[2019-02-13 08:13] LABS: Hematocrit 25.9 % (35.5-45.6); Hemoglobin 8.4 gm/dl (11.8-15.2); Mean Corpuscular HGB Conc 33 % (32-34); Mean Corpuscular Volume 86 fl (84-94); Platelet Count 236 K/mm3 (140-440); Red Blood Count 3.02 M/mm3 (3.65-5.03); Red Cell Distribution Width 14.1 % (13.2-15.2)
[2019-02-13 08:44] LABS: Calcium 8.8 mg/dL (8.4-10.2)
[2019-02-13 09:00] LABS: ABG Base Excess -4.6 mmol/L (-2.0-3.0); ABG HCO3 18.6 mmol/L (20.0-26.0); ABG Methemoglobin 0.6 % (0.0-1.5); ABG Oxygen Saturation 90.9 % (95.0-99.0); ABG PCO2 27.9 mm Hg; ABG PH 7.442 pH Units (7.350-7.450); ABG PO2 58.1 mm Hg (80.0-90.0)
[2019-02-13] MEDS: PANTOPRAZOLE 40 MG TAB PO SCH (09:20)
[2019-02-13] MEDS: ARIPiprazole 5 MG TAB PO SCH (09:20)
[2019-02-13] MEDS: DOCUSATE SODIUM 100 MG CAP PO SCH ×2 (09:20→21:48)
[2019-02-13] MEDS: NICOTINE 14 MG/24 HR PATCH TD SCH (09:20)
[2019-02-13] MEDS: amLODIPine 10 MG TAB PO SCH (09:21)
[2019-02-13] MEDS: cloNIDine 0.2 MG TAB PO SCH ×2 (09:21→21:48)
[2019-02-13] MEDS: carvediloL 6.25 MG TAB PO SCH ×2 (09:21→21:48)
[2019-02-13] MEDS: ACETAMINOPHEN 325 MG TAB PO PRN (09:22)
[2019-02-13] MEDS: HEPARIN 5,000 UNIT/1 ML VIAL SUB-Q SCH ×2 (09:25→21:49)
--- NOTE | 2019-02-13 14:39 | Progress Note ---
Assessment and Plan Assessment and plan: Acute respiratory failure with hypoxia Cont. supp Oxygen Nephrology following Pulmonology following Started iv Antibiotics until pneumonia ruled out since he had fever, leukocytosis Acute encephalopathy -CT head negative -Afebrile, no leukocytosis -Continue Neuro checks -Neurology consulted and ruled out focal seizure, received IV Keppra in the ER -Hold Bacolfen d/t renal function - Possibly underlying psych issues also contributing - Mental health evaluation done Acute unspecified psychosis vs delirium - Started on home medication Abilify 5 mg PO daily, psych following MIKEL on CKD 4 - vasomotor nephropathy versus progression of underlying chronic medical disease -Cr on admission 7.5 -CT abdomen and pelvis showed Indeterminant renal masses -Continue Hydrate with IVF -Avoid nephrotoxic agents -Renally dose all meds -Nephrology following Agitation haldol prn -Hx Hypertension -BP uncontrolled. Continue to adjust medications as needed N/V - resolved, likely from viral gastritis or GERD Hx Right subarachnoid hemorrhage, status post right frontal craniotomy Hx aneurysm, status post clipping -Continue supportive care -Neurology recommended outpatient follow Tobacco abuse -Current every day smoker -Counseled for cessation -Nicotine patch when necessary History of bipolar History of schizophrenia -Mental Health consult pending Thrombocytopenia. - cont to Monitor DVT PPX -SCD's Awaiting SNF placement History Interval history: PT still confused Hospitalist Physical - Constitutional Vitals: Temp Pulse Resp BP Pulse Ox 100.7 F H 79 22 153/88 94 02/13/19 08:40 02/13/19 12:00 02/13/19 10:00 02/13/19 09:21 02/13/19 10:00 General appearance: Present: no acute distress, well-nourished - EENT Eyes: Present: PERRL, EOM intact ENT: hearing intact, clear oral mucosa, dentition normal - Neck Neck: Present: supple, normal ROM - Respiratory Respiratory effort: normal Respiratory: bilateral: CTA - Cardiovascular Rhythm: regular Heart Sounds: Present: S1 & S2. Absent: gallop, rub - Extremities Extremities: no ischemia, No edema, Full ROM - Abdominal General gastrointestinal: soft, non-tender, non-distended, normal bowel sounds - Integumentary Integumentary: Present: clear, warm, dry - Neurologic Neurologic: CNII-XII intact, moves all extremities Results - Labs CBC & Chem 7: 02/13/19 06:58 02/13/19 06:58 Labs: Laboratory Last Values WBC 13.4 K/mm3 (4.5-11.0) H 02/13/19 06:58 RBC 3.02 M/mm3 (3.65-5.03) L 02/13/19 06:58 Hgb 8.4 gm/dl (11.8-15.2) L 02/13/19 06:58 Hct 25.9 % (35.5-45.6) L 02/13/19 06:58 MCV 86 fl (84-94) 02/13/19 06:58 MCH 28 pg (28-32) 02/13/19 06:58 MCHC 33 % (32-34) 02/13/19 06:58 RDW 14.1 % (13.2-15.2) 02/13/19 06:58 Plt Count 236 K/mm3 (140-440) 02/13/19 06:58 Lymph % (Auto) 18.2 % (13.4-35.0) 02/02/19 05:53 Drew % (Auto) 7.1 % (0.0-7.3) 02/02/19 05:53 Eos % (Auto) 0.5 % (0.0-4.3) 02/02/19 05:53 Baso % (Auto) 0.4 % (0.0-1.8) 02/02/19 05:53 Lymph # 1.8 K/mm3 (1.2-5.4) 02/02/19 05:53 Drew # 0.7 K/mm3 (0.0-0.8) 02/02/19 05:53 Eos # 0.0 K/mm3 (0.0-0.4) 02/02/19 05:53 Baso # 0.0 K/mm3 (0.0-0.1) 02/02/19 05:53 Seg Neutrophils % 73.8 % (40.0-70.0) H 02/02/19 05:53 Seg Neutrophils # 7.2 K/mm3 (1.8-7.7) 02/02/19 05:53 POC ABG pH 7.398 (7.35-7.45) 02/10/19 10:16 ABG pH 7.442 pH Units (7.350-7.450) 02/13/19 08:50 POC ABG pCO2 25.4 (35-45) L 02/10/19 10:16 ABG pCO2 27.9 mm Hg 02/13/19 08:50 ABG pO2 58.1 mm Hg (80.0-90.0) L 02/13/19 08:50 POC ABG HCO3 15.6 (22-26 mml/L) 02/10/19 10:16 ABG HCO3 18.6 mmol/L (20.0-26.0) L 02/13/19 08:50 POC ABG Total CO2 16 (23-27mmol/L) 02/10/19 10:16 POC ABG O2 Sat 76 02/10/19 10:16 ABG O2 Saturation 90.9 % (95.0-99.0) L 02/13/19 08:50 ABG O2 Content 11.3 (0.0-44) 02/13/19 08:50 POC ABG Base Excess -9 ((-2) - (+3)mmol/L) 02/10/19 10:16 ABG Base Excess -4.6 mmol/L (-2.0-3.0) L 02/13/19 08:50 ABG Hemoglobin 9.0 gm/dl (14.0-18.0) L 02/13/19 08:50 ABG Carboxyhemoglobin 2.0 % (0.0-5.0) 02/13/19 08:50 ABG Methemoglobin 0.6 % (0.0-1.5) 02/13/19 08:50 Oxyhemoglobin 88.6 % (95.0-99.0) L 02/13/19 08:50 FiO2 40 % 02/13/19 08:50 Sodium 147 mmol/L (137-145) H 02/13/19 06:58 Potassium 4.3 mmol/L (3.6-5.0) 02/13/19 06:58 Chloride 107.9 mmol/L (98-107) H 02/13/19 06:58 Carbon Dioxide 16 mmol/L (22-30) L 02/13/19 06:58 Anion Gap 27 mmol/L 02/13/19 06:58 BUN 106 mg/dL (9-20) H 02/13/19 06:58 Creatinine 10.5 mg/dL (0.8-1.5) H 02/13/19 06:58 Estimated GFR 6 ml/min 02/13/19 06:58 BUN/Creatinine Ratio 10 % 02/13/19 06:58 Glucose 88 mg/dL (75-100) 02/13/19 06:58 POC Glucose 134 (70-105) H 02/06/19 21:06 Hemoglobin A1c < 4.0 % (4-6) L 02/07/19 07:41 Calcium 8.8 mg/dL (8.4-10.2) 02/13/19 06:58 Phosphorus 2.20 mg/dL (2.5-4.5) L 02/10/19 10:03 Magnesium 1.60 mg/dL (1.7-2.3) L 02/10/19 10:03 Total Bilirubin 0.40 mg/dL (0.1-1.2) 02/10/19 10:03 AST 27 units/L (5-40) 02/10/19 10:03 ALT 23 units/L (7-56) 02/10/19 10:03 Alkaline Phosphatase 70 units/L (35-129) 02/10/19 10:03 Ammonia 34.0 umol/L (25-60) 02/01/19 17:52 Total Creatine Kinase 66 units/L (55-170) 02/01/19 17:52 Total Protein 5.9 g/dL (6.3-8.2) L 02/10/19 10:03 Albumin 3.1 g/dL (3.9-5) L 02/10/19 10:03 Albumin/Globulin Ratio 1.1 % 02/10/19 10:03 Triglycerides 135 mg/dL (2-149) 02/07/19 07:41 Cholesterol 155 mg/dL (50-199) 02/07/19 07:41 LDL Cholesterol Direct 101 mg/dL (50-130) 02/07/19 07:41 HDL Cholesterol 39 mg/dL (40-59) L 02/07/19 07:41 Cholesterol/HDL Ratio 3.97 % 02/07/19 07:41 TSH 1.990 mlU/mL (0.270-4.200) 02/01/19 17:52 Urine Color Yellow (Yellow) 02/01/19 20:45 Urine Turbidity Slightly-cloudy (Clear) 02/01/19 20:45 Urine pH 5.0 (5.0-7.0) 02/01/19 20:45 Ur Specific [place] 1.013 (1.003-1.030) 02/01/19 20:45 Urine Protein >500 mg/dL (Negative) 02/01/19 20:45 Urine Glucose (UA) Neg mg/dL (Negative) 02/01/19 20:45 Urine Ketones Neg mg/dL (Negative) 02/01/19 20:45 Urine Blood Sm (Negative) 02/01/19 20:45 Urine Nitrite Neg (Negative) 02/01/19 20:45 Urine Bilirubin Neg (Negative) 02/01/19 20:45 Urine Urobilinogen < 2.0 mg/dL (<2.0) 02/01/19 20:45 Ur Leukocyte Esterase Neg (Negative) 02/01/19 20:45 Urine WBC (Auto) 2.0 /HPF (0.0-6.0) 02/01/19 20:45 Urine RBC (Auto) 3.0 /HPF (0.0-6.0) 02/01/19 20:45 U Epithel Cells (Auto) 1.0 /HPF (0-13.0) 02/01/19 20:45 Urine Bacteria (Auto) 1+ /HPF (Negative) 02/01/19 20:45 Urine Mucus Few /HPF 02/01/19 20:45 Urine Yeast (Budding) 1+ /HPF 02/01/19 20:45 Urine Eosinophils None seen (None Seen) 02/02/19 02:30 Urine Creatinine 115.8 mg/dL (0.1-20.0) H 02/02/19 02:30 Urine Sodium 99 mmol/L 02/02/19 02:30 Urine Total Protein 198 mg/dL (5-11.8) H 02/02/19 02:30 Salicylates < 0.3 mg/dL (2.8-20.0) L 02/01/19 17:52 Acetaminophen < 5.0 ug/mL (10.0-30.0) L 02/01/19 17:52 Plasma/Serum Alcohol < 0.01 % (0-0.07) 02/01/19 17:52 Active Medications - Current Medications Current Medications: Generic Name Dose Route Start Last Admin Trade Name Freq PRN Reason Stop Dose Admin Acetaminophen 650 mg 02/01/19 20:23 02/13/19 09:22 Tylenol PO 650 mg Q4H PRN Administration Pain MILD(1-3)/Fever >100.5/QUAN Amlodipine Besylate 10 mg 02/01/19 21:00 02/13/19 09:21 Amlodipine PO 10 mg QDAY ENOC Administration Aripiprazole 5 mg 02/06/19 13:00 02/13/19 09:20 Aripiprazole PO 5 mg QDAY ENOC Administration Carvedilol 6.25 mg 02/01/19 21:21 02/13/19 09:21 Coreg PO 6.25 mg BID ENOC Administration Clonidine HCl 0.2 mg 02/06/19 11:30 02/13/19 09:21 Catapres PO 0.2 mg Q12HR ENOC Administration Docusate Sodium 100 mg 02/01/19 22:00 02/13/19 09:20 Colace PO 100 mg BID ENOC Administration Furosemide 60 mg 02/10/19 18:00 02/13/19 06:02 Lasix IV 60 mg 0600,1800 ENOC Administration Haloperidol Lactate 5 mg 02/08/19 11:09 02/09/19 21:03 Haldol IM 5 mg Q6H PRN Administration Agitation Heparin Sodium (Porcine) 5,000 unit 02/11/19 22:00 02/13/19 09:25 Heparin SUB-Q 5,000 unit Q12HR ENOC Administration Hydralazine HCl 10 mg 02/01/19 20:12 02/07/19 22:55 Apresoline IV 10 mg Q4HR PRN Administration Blood Pressure Hydralazine HCl 100 mg 02/01/19 21:21 02/13/19 08:00 Apresoline PO 100 mg TID ENOC Administration Levofloxacin/Dextrose 500 mg in 100 mls @ 66.667 mls/hr 02/12/19 10:00 02/12/19 12:07 Levaquin 500mg/100ml IV 66.667 mls/hr Q48H ENOC Administration Protocol Nicotine 14 mg 02/02/19 10:00 02/13/19 09:20 Habitrol TD 14 mg QDAY ENOC Administration Ondansetron HCl 4 mg 02/01/19 20:23 02/07/19 22:45 Zofran IV 4 mg Q8H PRN Administration Nausea And Vomiting Pantoprazole Sodium 40 mg 02/06/19 11:30 02/13/19 09:20 Protonix PO 40 mg QDAY ENOC Administration Sodium Chloride 10 ml 02/01/19 22:00 02/13/19 09:25 Sodium Chloride Flush Syringe 10 Ml IV 10 ml BID ENOC Administration Sodium Chloride 10 ml 02/01/19 20:23 02/04/19 05:25 Sodium Chloride Flush Syringe 10 Ml IV 10 ml PRN PRN Administration LINE FLUSH Nutrition/Malnutrition Assess - Dietary Evaluation Nutrition/Malnutrition Findings: Nutrition Notes Start: 02/03/19 0 9:42 Freq: Status: Active Protocol: Document 02/08/19 10:03 LP (Rec: 02/08/19 10:05 LP [email or web address]) Nutrition Notes Need for Assessment generated from: LOS Initial or Follow up Brief Note Subjective/Other Information Screen for LOS. Pt continues eating well. Consuming at least 75% of meals. Nutrition Intervention Revisit per MD consult or patient Sign Off request:
--- NOTE | 2019-02-13 16:48 | Progress Note ---
Assessment and Plan - Patient Problems (1) Acute kidney injury Current Visit: Yes Status: Acute Plan to address problem: Patient has significant renal failure. Discussed with primary attending, and based on his significant psychiatric issues he is not an ideal candidate for renal replacement therapy/dialysis. Would recommend conservative management at this point. Tried to call Nr of next of kin, however no answers. Will titrate down lasix to 40mg IV daily given worsening azotemia. There is no acute indications for renal placement therapy at present time. We'll continue to monitor. Labs pending this am. (2) Acute respiratory failure with hypoxia Current Visit: Yes Status: Acute Plan to address problem: Continue current IV diuretic regimen. Strict I's and O's. Avoid standing IV fluids. Chest x-ray reviewed. Continue on high flow nasal cannula per primary team with weaning as tolerated. We'll continue to monitor. (3) Hypertensive chronic kidney disease with stage 1 through stage 4 chronic kidney disease, or unspecified chronic kidney disease Current Visit: Yes Status: Chronic Plan to address problem: Continue to monitor blood pressures under current regimen. (4) Proteinuria Current Visit: Yes Status: Acute Plan to address problem: Non nephrotic range proteinuria. Will continue to monitor. (5) Schizoaffective disorder Current Visit: Yes Status: Chronic Plan to address problem: Management per primary attending Subjective Date of service: 02/13/19 Principal diagnosis: acute kidney injury Interval history: Pt awake, confused, disoriented, in no acute respiratory distress Objective - Vital Signs Vital signs: Vital Signs - 12hr 02/13/19 02/13/19 02/13/19 08:00 08:40 09:21 Temperature 100.7 F H Pulse Rate 103 H 97 H Pulse Rate [ Apical] Pulse Rate [ Dorsalis Pedis] Pulse Rate [ Left Radial] Pulse Rate [ Posterior Tibial] Pulse Rate [ Radial] Pulse Rate [ Right Radial] Respiratory 18 Rate Blood Pressure 150/102 153/88 Blood Pressure [Left] O2 Sat by Pulse 93 94 Oximetry 02/13/19 02/13/19 02/13/19 10:00 12:00 14:00 Temperature Pulse Rate 100 H 79 78 Pulse Rate [ 100 H Apical] Pulse Rate [ 100 H Dorsalis Pedis] Pulse Rate [ 100 H Left Radial] Pulse Rate [ 100 H Posterior Tibial] Pulse Rate [ 100 H Radial] Pulse Rate [ 100 H Right Radial] Respiratory 22 Rate Blood Pressure Blood Pressure 114/85 [Left] O2 Sat by Pulse 94 Oximetry - General Appearance General appearance: well-developed, well-nourished, appears stated age EENT: ATNC, PERRL, mucous membranes moist Neck: no JVD Respiratory: Present: Clear to Ascultation Cardiology: regular, S1S2 Gastrointestinal: normoactive bowel sounds Integumentary: no rash, other (no edema ) Neurologic: no focal deficit, strength 5/5, CN 3-12 intact Psychiatric: paranoid ideation - Lab 02/13/19 06:58 02/13/19 06:58 Most recent lab results ABG pH 7.442 pH Units (7.350-7.450) 02/13/19 08:50 ABG pCO2 27.9 mm Hg 02/13/19 08:50 ABG pO2 58.1 mm Hg (80.0-90.0) L 02/13/19 08:50 ABG HCO3 18.6 mmol/L (20.0-26.0) L 02/13/19 08:50 ABG O2 Saturation 90.9 % (95.0-99.0) L 02/13/19 08:50 Calcium 8.8 mg/dL (8.4-10.2) 02/13/19 06:58 Phosphorus 2.20 mg/dL (2.5-4.5) L 02/10/19 10:03 Magnesium 1.60 mg/dL (1.7-2.3) L 02/10/19 10:03 Urine Creatinine 115.8 mg/dL (0.1-20.0) H 02/02/19 02:30 Urine Sodium 99 mmol/L 02/02/19 02:30 Urine Total Protein 198 mg/dL (5-11.8) H 02/02/19 02:30 Medications & Allergies - Medications Allergies/Adverse Reactions: Allergies No Known Allergies Allergy (Unverified 04/17/17 13:03) Home Medications: Home Medications Medication Instructions Recorded Confirmed Last Taken Type ARIPiprazole [Abilify] 20 mg PO QDAY 02/03/19 02/03/19 1 Day Ago History ~02/02/19 Losartan/Hydrochlorothiazide 1 each PO QDAY 02/03/19 02/03/19 Unknown History [Losartan-Hctz 100-25 mg Tab] Active Medications: Generic Name Dose Route Start Last Admin Trade Name Freq PRN Reason Stop Dose Admin Acetaminophen 650 mg 02/01/19 20:23 02/13/19 09:22 Tylenol PO 650 mg Q4H PRN Administration Pain MILD(1-3)/Fever >100.5/QUAN Amlodipine Besylate 10 mg 02/01/19 21:00 02/13/19 09:21 Amlodipine PO 10 mg QDAY ENOC Administration Aripiprazole 5 mg 02/06/19 13:00 02/13/19 09:20 Aripiprazole PO 5 mg QDAY ENOC Administration Carvedilol 6.25 mg 02/01/19 21:21 02/13/19 09:21 Coreg PO 6.25 mg BID ENOC Administration Clonidine HCl 0.2 mg 02/06/19 11:30 02/13/19 09:21 Catapres PO 0.2 mg Q12HR ENOC Administration Docusate Sodium 100 mg 02/01/19 22:00 02/13/19 09:20 Colace PO 100 mg BID ENOC Administration Furosemide 60 mg 02/10/19 18:00 02/13/19 06:02 Lasix IV 60 mg 0600,1800 ENOC Administration Haloperidol Lactate 5 mg 02/08/19 11:09 02/09/19 21:03 Haldol IM 5 mg Q6H PRN Administration Agitation Heparin Sodium (Porcine) 5,000 unit 02/11/19 22:00 02/13/19 09:25 Heparin SUB-Q 5,000 unit Q12HR ENOC Administration Hydralazine HCl 10 mg 02/01/19 20:12 02/07/19 22:55 Apresoline IV 10 mg Q4HR PRN Administration Blood Pressure Hydralazine HCl 100 mg 02/01/19 21:21 02/13/19 14:00 Apresoline PO 100 mg TID ENOC Administration Levofloxacin/Dextrose 500 mg in 100 mls @ 66.667 mls/hr 02/12/19 10:00 02/12/19 12:07 Levaquin 500mg/100ml IV 66.667 mls/hr Q48H ENOC Administration Protocol Nicotine 14 mg 02/02/19 10:00 02/13/19 09:20 Habitrol TD 14 mg QDAY ENOC Administration Ondansetron HCl 4 mg 02/01/19 20:23 02/07/19 22:45 Zofran IV 4 mg Q8H PRN Administration Nausea And Vomiting Pantoprazole Sodium 40 mg 02/06/19 11:30 02/13/19 09:20 Protonix PO 40 mg QDAY ENOC Administration Sodium Chloride 10 ml 02/01/19 22:00 02/13/19 09:25 Sodium Chloride Flush Syringe 10 Ml IV 10 ml BID ENOC Administration Sodium Chloride 10 ml 02/01/19 20:23 02/04/19 05:25 Sodium Chloride Flush Syringe 10 Ml IV 10 ml PRN PRN Administration LINE FLUSH
[2019-02-14 05:40] LABS: Basophils % (Auto) 0.3 % (0.0-1.8); Eosinophils # (Auto) 0.5 K/mm3 (0.0-0.4); Eosinophils % (Auto) 5.6 % (0.0-4.3); Hematocrit 25.3 % (35.5-45.6); Hemoglobin 8.2 gm/dl (11.8-15.2); Lymphocytes # (Auto) 1.2 K/mm3 (1.2-5.4); Lymphocytes % (Auto) 12.8 % (13.4-35.0); Mean Corpuscular HGB Conc 32 % (32-34); Mean Corpuscular Volume 86 fl (84-94); Monocytes # (Auto) 0.8 K/mm3 (0.0-0.8); Monocytes % (Auto) 8.9 % (0.0-7.3); Platelet Count 232 K/mm3 (140-440); Red Blood Count 2.95 M/mm3 (3.65-5.03)
[2019-02-14 06:03] LABS: Calcium 8.6 mg/dL (8.4-10.2)
[2019-02-14] MEDS: FUROSEMIDE 100 MG/10 ML INJ IV SCH (06:03)
--- NOTE | 2019-02-14 09:41 | Progress Note ---
Assessment and Plan - Patient Problems (1) Acute kidney injury Current Visit: Yes Status: Acute Plan to address problem: Patient has significant renal failure. Based on his significant psychiatric issues he is not an ideal candidate for renal replacement therapy/dialysis. Would recommend conservative management at this point. Need to discuss goals of care with family, tried to call Nr of pt's spouse, however no answers. Cont lasix 40mg IV daily for volume control. There is no acute indications for renal placement therapy at present time. We'll continue to monitor. (2) Acute respiratory failure with hypoxia Current Visit: Yes Status: Acute Plan to address problem: Continue current IV diuretic regimen. Strict I's and O's. Avoid standing IV f luids. Chest x-ray reviewed. Continue on high flow nasal cannula per primary team with weaning as tolerated. We'll continue to monitor. (3) Hypertensive chronic kidney disease with stage 1 through stage 4 chronic kidney disease, or unspecified chronic kidney disease Current Visit: Yes Status: Chronic Plan to address problem: Continue to monitor blood pressures under current regimen. (4) Proteinuria Current Visit: Yes Status: Acute Plan to address problem: Non nephrotic range proteinuria. Will continue to monitor. (5) Schizoaffective disorder Current Visit: Yes Status: Chronic Plan to address problem: Management per primary attending Subjective Date of service: 02/14/19 Principal diagnosis: acute kidney injury Interval history: Pt awake, more alert, however disoriented in no acute respiratory distress Objective - Vital Signs Vital signs: Vital Signs - 12hr 02/13/19 02/14/19 02/14/19 22:43 00:41 04:19 Temperature 97.9 F 97.7 F Pulse Rate 77 79 Respiratory 22 20 Rate Blood Pressure 122/82 122/84 O2 Sat by Pulse 99 97 99 Oximetry 02/14/19 08:50 Temperature 98.7 F Pulse Rate 84 Respiratory 19 Rate Blood Pressure 139/95 O2 Sat by Pulse 97 Oximetry - General Appearance General appearance: well-developed, well-nourished, appears stated age EENT: ATNC, PERRL, mucous membranes moist Neck: no JVD Respiratory: Present: Clear to Ascultation Cardiology: regular, S1S2 Gastrointestinal: normoactive bowel sounds Integumentary: no rash, other (no edema ) Neurologic: no focal deficit, strength 5/5, CN 3-12 intact Psychiatric: paranoid ideation - Lab 02/14/19 05:03 02/14/19 05:03 Most recent lab results ABG pH 7.442 pH Units (7.350-7.450) 02/13/19 08:50 ABG pCO2 27.9 mm Hg 02/13/19 08:50 ABG pO2 58.1 mm Hg (80.0-90.0) L 02/13/19 08:50 ABG HCO3 18.6 mmol/L (20.0-26.0) L 02/13/19 08:50 ABG O2 Saturation 90.9 % (95.0-99.0) L 02/13/19 08:50 Calcium 8.6 mg/dL (8.4-10.2) 02/14/19 05:03 Phosphorus 2.20 mg/dL (2.5-4.5) L 02/10/19 10:03 Magnesium 1.60 mg/dL (1.7-2.3) L 02/10/19 10:03 Urine Creatinine 115.8 mg/dL (0.1-20.0) H 02/02/19 02:30 Urine Sodium 99 mmol/L 02/02/19 02:30 Urine Total Protein 198 mg/dL (5-11.8) H 02/02/19 02:30 Medications & Allergies - Medications Allergies/Adverse Reactions: Allergies No Known Allergies Allergy (Unverified 04/17/17 13:03) Home Medications: Home Medications Medication Instructions Recorded Confirmed Last Taken Type ARIPiprazole [Abilify] 20 mg PO QDAY 02/03/19 02/03/19 1 Day Ago History ~02/02/19 Losartan/Hydrochlorothiazide 1 each PO QDAY 02/03/19 02/03/19 Unknown History [Losartan-Hctz 100-25 mg Tab] Active Medications: Generic Name Dose Route Start Last Admin Trade Name Freq PRN Reason Stop Dose Admin Acetaminophen 650 mg 02/01/19 20:23 02/13/19 09:22 Tylenol PO 650 mg Q4H PRN Administration Pain MILD(1-3)/Fever >100.5/QUAN Amlodipine Besylate 10 mg 02/01/19 21:00 02/13/19 09:21 Amlodipine PO 10 mg QDAY ENOC Administration Aripiprazole 5 mg 02/06/19 13:00 02/13/19 09:20 Aripiprazole PO 5 mg QDAY ENOC Administration Carvedilol 6.25 mg 02/01/19 21:21 02/13/19 21:48 Coreg PO 6.25 mg BID ENOC Administration Clonidine HCl 0.2 mg 02/06/19 11:30 02/13/19 21:48 Catapres PO 0.2 mg Q12HR ENOC Administration Docusate Sodium 100 mg 02/01/19 22:00 02/13/19 21:48 Colace PO 100 mg BID ENOC Administration Furosemide 40 mg 02/14/19 06:00 02/14/19 06:03 Lasix IV 40 mg 0600 ENOC Administration Haloperidol Lactate 5 mg 02/08/19 11:09 02/09/19 21:03 Haldol IM 5 mg Q6H PRN Administration Agitation Heparin Sodium (Porcine) 5,000 unit 02/11/19 22:00 02/13/19 21:49 Heparin SUB-Q 5,000 unit Q12HR ENOC Administration Hydralazine HCl 10 mg 02/01/19 20:12 02/07/19 22:55 Apresoline IV 10 mg Q4HR PRN Administration Blood Pressure Hydralazine HCl 100 mg 02/01/19 21:21 02/13/19 21:49 Apresoline PO 100 mg TID ENOC Administration Levofloxacin/Dextrose 500 mg in 100 mls @ 66.667 mls/hr 02/12/19 10:00 1204/02 12:07 Levaquin 500mg/100ml IV 66.667 mls/hr Q48H ENOC Administration Protocol Nicotine 14 mg 02/02/19 10:00 02/13/19 09:20 Habitrol TD 14 mg QDAY ENOC Administration Ondansetron HCl 4 mg 02/01/19 20:23 02/07/19 22:45 Zofran IV 4 mg Q8H PRN Administration Nausea And Vomiting Pantoprazole Sodium 40 mg 02/06/19 11:30 02/13/19 09:20 Protonix PO 40 mg QDAY ENOC Administration Sodium Chloride 10 ml 02/01/19 22:00 02/13/19 21:49 Sodium Chloride Flush Syringe 10 Ml IV 10 ml BID ENOC Administration Sodium Chloride 10 ml 02/01/19 20:23 02/04/19 05:25 Sodium Chloride Flush Syringe 10 Ml IV 10 ml PRN PRN Administration LINE FLUSH
[2019-02-14] MEDS: carvediloL 6.25 MG TAB PO SCH ×2 (10:28→23:06)
[2019-02-14] MEDS: cloNIDine 0.2 MG TAB PO SCH ×2 (10:28→23:09)
[2019-02-14] MEDS: hydrALAZINE 100 MG TAB PO SCH ×3 (10:28→20:37)
[2019-02-14] MEDS: ARIPiprazole 5 MG TAB PO SCH (10:28)
[2019-02-14] MEDS: PANTOPRAZOLE 40 MG TAB PO SCH (10:28)
[2019-02-14] MEDS: amLODIPine 10 MG TAB PO SCH (10:28)
[2019-02-14] MEDS: NICOTINE 14 MG/24 HR PATCH TD SCH (10:28)
[2019-02-14] MEDS: DOCUSATE SODIUM 100 MG CAP PO SCH ×2 (10:28→23:03)
[2019-02-14] MEDS: HEPARIN 5,000 UNIT/1 ML VIAL SUB-Q SCH ×2 (10:29→23:03)
--- NOTE | 2019-02-14 15:29 | Progress Note ---
Assessment and Plan Assessment and plan: Acute respiratory failure with hypoxia Cont. supp Oxygen Nephrology following Pulmonology following Started iv Antibiotics until pneumonia ruled out since he had fever, leukocytosis Acute encephalopathy -CT head negative -Afebrile, no leukocytosis -Continue Neuro checks -Neurology consulted and ruled out focal seizure, received IV Keppra in the ER -Hold Bacolfen d/t renal function - Possibly underlying psych issues also contributing - Mental health evaluation done Acute unspecified psychosis vs delirium - Started on home medication Abilify 5 mg PO daily, psych following MIKEL on CKD 4 - vasomotor nephropathy versus progression of underlying chronic medical disease -Cr on admission 7.5 -CT abdomen and pelvis showed Indeterminant renal masses -Avoid nephrotoxic agents -Renally dose all meds -Nephrology reports Patient has significant renal failure and Based on his s ignificant psychiatric issues he is not an ideal candidate for renal replacement therapy/dialysis. They recommend conservative management at this point. I will attempt to discuss goals of care with family, ? hospice Cont lasix 40mg IV daily for volume Agitation haldol prn -Hx Hypertension -BP uncontrolled. Continue to adjust medications as needed N/V - resolved, likely from viral gastritis or GERD Hx Right subarachnoid hemorrhage, status post right frontal craniotomy Hx aneurysm, status post clipping -Continue supportive care -Neurology recommended outpatient follow Tobacco abuse -Current every day smoker -Counseled for cessation -Nicotine patch when necessary History of bipolar History of schizophrenia -Mental Health consult pending Thrombocytopenia. - cont to Monitor DVT PPX -SCD's Awaiting SNF placement History Interval history: PT still confused Hospitalist Physical - Constitutional Vitals: Temp Pulse Resp BP Pulse Ox 98.7 F 84 22 139/95 94 02/14/19 08:50 02/14/19 10:28 02/14/19 10:00 02/14/19 10:28 02/14/19 10:00 General appearance: Present: no acute distress, well-nourished - EENT Eyes: Present: PERRL, EOM intact ENT: hearing intact, clear oral mucosa, dentition normal - Neck Neck: Present: supple, normal ROM - Respiratory Respiratory effort: normal Respiratory: bilateral: CTA - Cardiovascular Rhythm: regular Heart Sounds: Present: S1 & S2. Absent: gallop, rub - Extremities Extremities: no ischemia, No edema, Full ROM - Abdominal General gastrointestinal: soft, non-tender, non-distended, normal bowel sounds - Integumentary Integumentary: Present: clear, warm, dry - Neurologic Neurologic: CNII-XII intact, moves all extremities Results - Labs CBC & Chem 7: 02/14/19 05:03 02/14/19 05:03 Labs: Laboratory Last Values WBC 9.5 K/mm3 (4.5-11.0) 02/14/19 05:03 RBC 2.95 M/mm3 (3.65-5.03) L 02/14/19 05:03 Hgb 8.2 gm/dl (11.8-15.2) L 02/14/19 05:03 Hct 25.3 % (35.5-45.6) L 02/14/19 05:03 MCV 86 fl (84-94) 02/14/19 05:03 MCH 28 pg (28-32) 02/14/19 05:03 MCHC 32 % (32-34) 02/14/19 05:03 RDW 14.0 % (13.2-15.2) 02/14/19 05:03 Plt Count 232 K/mm3 (140-440) 02/14/19 05:03 Lymph % (Auto) 12.8 % (13.4-35.0) L 02/14/19 05:03 [place] % (Auto) 8.9 % (0.0-7.3) H 02/14/19 05:03 Eos % (Auto) 5.6 % (0.0-4.3) H 02/14/19 05:03 Baso % (Auto) 0.3 % (0.0-1.8) 02/14/19 05:03 Lymph # 1.2 K/mm3 (1.2-5.4) 02/14/19 05:03 [place] # 0.8 K/mm3 (0.0-0.8) 02/14/19 05:03 Eos # 0.5 K/mm3 (0.0-0.4) H 02/14/19 05:03 Baso # 0.0 K/mm3 (0.0-0.1) 02/14/19 05:03 Seg Neutrophils % 72.4 % (40.0-70.0) H 02/14/19 05:03 Seg Neutrophils # 6.9 K/mm3 (1.8-7.7) 02/14/19 05:03 POC ABG pH 7.398 (7.35-7.45) 02/10/19 10:16 ABG pH 7.442 pH Units (7.350-7.450) 02/13/19 08:50 POC ABG pCO2 25.4 (35-45) L 02/10/19 10:16 ABG pCO2 27.9 mm Hg 02/13/19 08:50 ABG pO2 58.1 mm Hg (80.0-90.0) L 02/13/19 08:50 POC ABG HCO3 15.6 (22-26 mml/L) 02/10/19 10:16 ABG HCO3 18.6 mmol/L (20.0-26.0) L 02/13/19 08:50 POC ABG Total CO2 16 (23-27mmol/L) 02/10/19 10:16 POC ABG O2 Sat 76 02/10/19 10:16 ABG O2 Saturation 90.9 % (95.0-99.0) L 02/13/19 08:50 ABG O2 Content 11.3 (0.0-44) 02/13/19 08:50 POC ABG Base Excess -9 ((-2) - (+3)mmol/L) 02/10/19 10:16 ABG Base Excess -4.6 mmol/L (-2.0-3.0) L 02/13/19 08:50 ABG Hemoglobin 9.0 gm/dl (14.0-18.0) L 02/13/19 08:50 ABG Carboxyhemoglobin 2.0 % (0.0-5.0) 02/13/19 08:50 ABG Methemoglobin 0.6 % (0.0-1.5) 02/13/19 08:50 Oxyhemoglobin 88.6 % (95.0-99.0) L 02/13/19 08:50 FiO2 40 % 02/13/19 08:50 Sodium 144 mmol/L (137-145) 02/14/19 05:03 Potassium 4.1 mmol/L (3.6-5.0) 02/14/19 05:03 Chloride 110.7 mmol/L (98-107) H 02/14/19 05:03 Carbon Dioxide 18 mmol/L (22-30) L 02/14/19 05:03 Anion Gap 19 mmol/L 02/14/19 05:03 BUN 107 mg/dL (9-20) H 02/14/19 05:03 Creatinine 10.4 mg/dL (0.8-1.5) H 02/14/19 05:03 Estimated GFR 6 ml/min 02/14/19 05:03 BUN/Creatinine Ratio 10 % 02/14/19 05:03 Glucose 106 mg/dL (75-100) H 02/14/19 05:03 POC Glucose 134 (70-105) H 02/06/19 21:06 Hemoglobin A1c < 4.0 % (4-6) L 02/07/19 07:41 Calcium 8.6 mg/dL (8.4-10.2) 02/14/19 05:03 Phosphorus 2.20 mg/dL (2.5-4.5) L 02/10/19 10:03 Magnesium 1.60 mg/dL (1.7-2.3) L 02/10/19 10:03 Total Bilirubin 0.40 mg/dL (0.1-1.2) 02/10/19 10:03 AST 27 units/L (5-40) 02/10/19 10:03 ALT 23 units/L (7-56) 02/10/19 10:03 Alkaline Phosphatase 70 units/L (35-129) 02/10/19 10:03 Ammonia 34.0 umol/L (25-60) 02/01/19 17:52 Total Creatine Kinase 66 units/L (55-170) 02/01/19 17:52 Total Protein 5.9 g/dL (6.3-8.2) L 02/10/19 10:03 Albumin 3.1 g/dL (3.9-5) L 02/10/19 10:03 Albumin/Globulin Ratio 1.1 % 02/10/19 10:03 Triglycerides 135 mg/dL (2-149) 02/07/19 07:41 Cholesterol 155 mg/dL (50-199) 02/07/19 07:41 LDL Cholesterol Direct 101 mg/dL (50-130) 02/07/19 07:41 HDL Cholesterol 39 mg/dL (40-59) L 02/07/19 07:41 Cholesterol/HDL Ratio 3.97 % 02/07/19 07:41 TSH 1.990 mlU/mL (0.270-4.200) 02/01/19 17:52 Urine Color Yellow (Yellow) 02/01/19 20:45 Urine Turbidity Slightly-cloudy (Clear) 02/01/19 20:45 Urine pH 5.0 (5.0-7.0) 02/01/19 20:45 Ur Specific [place] 1.013 (1.003-1.030) 02/01/19 20:45 Urine Protein >500 mg/dL (Negative) 02/01/19 20:45 Urine Glucose (UA) Neg mg/dL (Negative) 02/01/19 20:45 Urine Ketones Neg mg/dL (Negative) 02/01/19 20:45 Urine Blood Sm (Negative) 02/01/19 20:45 Urine Nitrite Neg (Negative) 02/01/19 20:45 Urine Bilirubin Neg (Negative) 02/01/19 20:45 Urine Urobilinogen < 2.0 mg/dL (<2.0) 02/01/19 20:45 Ur Leukocyte Esterase Neg (Negative) 02/01/19 20:45 Urine WBC (Auto) 2.0 /HPF (0.0-6.0) 02/01/19 20:45 Urine RBC (Auto) 3.0 /HPF (0.0-6.0) 02/01/19 20:45 U Epithel Cells (Auto) 1.0 /HPF (0-13.0) 02/01/19 20:45 Urine Bacteria (Auto) 1+ /HPF (Negative) 02/01/19 20:45 Urine Mucus Few /HPF 02/01/19 20:45 Urine Yeast (Budding) 1+ /HPF 02/01/19 20:45 Urine Eosinophils None seen (None Seen) 02/02/19 02:30 Urine Creatinine 115.8 mg/dL (0.1-20.0) H 02/02/19 02:30 Urine Sodium 99 mmol/L 02/02/19 02:30 Urine Total Protein 198 mg/dL (5-11.8) H 02/02/19 02:30 Salicylates < 0.3 mg/dL (2.8-20.0) L 02/01/19 17:52 Acetaminophen < 5.0 ug/mL (10.0-30.0) L 02/01/19 17:52 Plasma/Serum Alcohol < 0.01 % (0-0.07) 02/01/19 17:52 Active Medications - Current Medications Current Medications: Generic Name Dose Route Start Last Admin Trade Name Freq PRN Reason Stop Dose Admin Acetaminophen 650 mg 02/01/19 20:23 02/13/19 09:22 Tylenol PO 650 mg Q4H PRN Administration Pain MILD(1-3)/Fever >100.5/QUAN Amlodipine Besylate 10 mg 02/01/19 21:00 02/14/19 10:28 Amlodipine PO 10 mg QDAY ENOC Administration Aripiprazole 5 mg 02/06/19 13:00 02/14/19 10:28 Aripiprazole PO 5 mg QDAY ENOC Administration Carvedilol 6.25 mg 02/01/19 21:21 02/14/19 10:28 Coreg PO 6.25 mg BID ENOC Administration Clonidine HCl 0.2 mg 02/06/19 11:30 02/14/19 10:28 Catapres PO 0.2 mg Q12HR ENOC Administration Docusate Sodium 100 mg 02/01/19 22:00 02/14/19 10:28 Colace PO 100 mg BID ENOC Administration Furosemide 40 mg 02/14/19 06:00 02/14/19 06:03 Lasix IV 40 mg 0600 ENOC Administration Haloperidol Lactate 5 mg 02/08/19 11:09 02/09/19 21:03 Haldol IM 5 mg Q6H PRN Administration Agitation Heparin Sodium (Porcine) 5,000 unit 02/11/19 22:00 02/14/19 10:29 Heparin SUB-Q 5,000 unit Q12HR ENOC Administration Hydralazine HCl 10 mg 02/01/19 20:12 02/07/19 22:55 Apresoline IV 10 mg Q4HR PRN Administration Blood Pressure Hydralazine HCl 100 mg 02/01/19 21:21 02/14/19 10:28 Apresoline PO 100 mg TID ENOC Administration Levofloxacin/Dextrose 500 mg in 100 mls @ 66.667 mls/hr 02/12/19 10:00 02/14/19 10:29 Levaquin 500mg/100ml IV 02/20/19 11:29 66.667 mls/hr Q48H ENOC Administration Protocol Nicotine 14 mg 02/02/19 10:00 02/14/19 10:28 Habitrol TD 14 mg QDAY ENOC Administration Ondansetron HCl 4 mg 02/01/19 20:23 02/07/19 22:45 Zofran IV 4 mg Q8H PRN Administration Nausea And Vomiting Pantoprazole Sodium 40 mg 02/06/19 11:30 02/14/19 10:28 Protonix PO 40 mg QDAY ENOC Administration Sodium Chloride 10 ml 02/01/19 22:00 02/14/19 10:31 Sodium Chloride Flush Syringe 10 Ml IV 10 ml BID ENOC Administration Sodium Chloride 10 ml 02/01/19 20:23 02/04/19 05:25 Sodium Chloride Flush Syringe 10 Ml IV 10 ml PRN PRN Administration LINE FLUSH Nutrition/Malnutrition Assess - Dietary Evaluation Nutrition/Malnutrition Findings: Nutrition Notes Start: 02/03/19 09:42 Freq: Status: Active Protocol: Document 02/08/19 10:03 LP (Rec: 02/08/19 10:05 LP [email or web address]) Nutrition Notes Need for Assessment generated from: LOS Initial or Follow up Brief Note Subjective/Other Information Screen for LOS. Pt continues eating well. Consuming at least 75% of meals. Nutrition Intervention Revisit per MD consult or patient Sign Off request:
[2019-02-15] MEDS: FUROSEMIDE 100 MG/10 ML INJ IV SCH (05:49)
[2019-02-15] MEDS: hydrALAZINE 100 MG TAB PO SCH (08:37)
--- NOTE | 2019-02-15 10:06 | Progress Note ---
Assessment and Plan - Patient Problems (1) Acute kidney injury Current Visit: Yes Status: Acute Plan to address problem: Patient has significant renal failure. Based on his significant psychiatric issues he is not an ideal candidate for renal replacement therapy/dialysis. Again tried to initiate discussion about renal replacement, benefits and risks with pt, along with overall goals of care. I doubt that pt has capacity to fully understand risks/benefits of hemodialysis and HD would pose more harm/danger to the patient than benefits. With his psychiatric issues, pt will also face difficulties to be placed at outpt HD clinic even if HD is initiated. Thus, I would recommend palliative care. Recommend psychiatric evaluation to assess pt's capacity to make decisions for himself regarding renal replacement therapy. We need to discuss goals of care with family, tried to call Nr of pt's spouse (both [phone] and [phone]) , however no answers, no call backs so far. Discussed also with Dr Dunbar and recommended to have family meeting to discuss overall goals of care incl. palliative care. For now Cont lasix 40mg IV daily for volume control. There is no emergent indications for renal placement therapy at present time. We'll continue to monitor. (2) Acute respiratory failure with hypoxia Current Visit: Yes Status: Acute Plan to address problem: Continue current IV diuretic regimen. Strict I's and O's. Avoid standing IV fluids. Chest x-ray reviewed. Continue on high flow nasal cannula per primary team with weaning as tolerated. We'll continue to monitor. (3) Hypertensive chronic kidney disease with stage 1 through stage 4 chronic kidney disease, or unspecified chronic kidney disease Current Visit: Yes Status: Chronic Plan to address problem: Continue to monitor blood pressures under current regimen. (4) Proteinuria Current Visit: Yes Status: Acute Plan to address problem: Non nephrotic range proteinuria. Will continue to monitor. (5) Schizoaffective disorder Current Visit: Yes Status: Chronic Plan to address problem: Management per primary attending Subjective Date of service: 02/15/19 Principal diagnosis: acute kidney injury Interval history: Pt awake, alert, however disoriented, intermittent paranoidal thoughts, in no acute respiratory distress Objective - Vital Signs Vital signs: Vital Signs - 12hr 02/14/19 02/14/19 02/14/19 22:00 22:12 23:06 Temperature 99.4 F Pulse Rate 79 79 Respiratory 20 Rate Blood Pressure 123/81 123/81 O2 Sat by Pulse 100 100 Oximetry 02/15/19 02/15/19 02/15/19 00:06 04:47 07:49 Temperature 98.8 F 98.0 F Pulse Rate 82 76 69 Respiratory 20 18 Rate Blood Pressure 127/85 115/78 O2 Sat by Pulse 100 95 Oximetry - General Appearance General appearance: well-developed, well-nourished, appears stated age EENT: ATNC, PERRL, mucous membranes moist Neck: no JVD Respiratory: Present: Clear to Ascultation Cardiology: regular, S1S2 Gastrointestinal: normoactive bowel sounds Integumentary: no rash, other (no edema ) Neurologic: no focal deficit, strength 5/5, CN 3-12 intact Psychiatric: mood/affect appropriate, cooperative - Lab 02/14/19 05:03 02/14/19 05:03 Most recent lab results ABG pH 7.442 pH Units (7.350-7.450) 02/13/19 08:50 ABG pCO2 27.9 mm Hg 02/13/19 08:50 ABG pO2 58.1 mm Hg (80.0-90.0) L 02/13/19 08:50 ABG HCO3 18.6 mmol/L (20.0-26.0) L 02/13/19 08:50 ABG O2 Saturation 90.9 % (95.0-99.0) L 02/13/19 08:50 Calcium 8.6 mg/dL (8.4-10.2) 02/14/19 05:03 Phosphorus 2.20 mg/dL (2.5-4.5) L 02/10/19 10:03 Magnesium 1.60 mg/dL (1.7-2.3) L 02/10/19 10:03 Urine Creatinine 115.8 mg/dL (0.1-20.0) H 02/02/19 02:30 Urine Sodium 99 mmol/L 02/02/19 02:30 Urine Total Protein 198 mg/dL (5-11.8) H 02/02/19 02:30 Medications & Allergies - Medications Allergies/Adverse Reactions: Allergies No Known Allergies Allergy (Unverified 04/17/17 13:03) Home Medications: Home Medications Medication Instructions Recorded Confirmed Last Taken Type ARIPiprazole [Abilify] 20 mg PO QDAY 02/03/19 02/03/19 1 Day Ago History ~02/02/19 Losartan/Hydrochlorothiazide 1 each PO QDAY 02/03/19 02/03/19 Unknown History [Losartan-Hctz 100-25 mg Tab] Active Medications: Generic Name Dose Route Start Last Admin Trade Name Freq PRN Reason Stop Dose Admin Acetaminophen 650 mg 02/01/19 20:23 02/13/19 09:22 Tylenol PO 650 mg Q4H PRN Administration Pain MILD(1-3)/Fever >100.5/QUAN Amlodipine Besylate 10 mg 02/01/19 21:00 02/14/19 10:28 Amlodipine PO 10 mg QDAY ENOC Administration Aripiprazole 5 mg 02/06/19 13:00 02/14/19 10:28 Aripiprazole PO 5 mg QDAY ENOC Administration Carvedilol 6.25 mg 02/01/19 21:21 02/14/19 23:06 Coreg PO 6.25 mg BID ENOC Administration Clonidine HCl 0.2 mg 02/06/19 11:30 02/14/19 23:09 Catapres PO 0.2 mg Q12HR ENOC Administration Docusate Sodium 100 mg 02/01/19 22:00 02/14/19 23:03 Colace PO 100 mg BID ENOC Administration Furosemide 40 mg 02/14/19 06:00 02/15/19 05:49 Lasix IV 40 mg 0600 ENOC Administration Haloperidol Lactate 5 mg 02/08/19 11:09 02/09/19 21:03 Haldol IM 5 mg Q6H PRN Administration Agitation Heparin Sodium (Porcine) 5,000 unit 02/11/19 22:00 02/14/19 23:03 Heparin SUB-Q 5,000 unit Q12HR ENOC Administration Hydralazine HCl 10 mg 02/01/19 20:12 02/07/19 22:55 Apresoline IV 10 mg Q4HR PRN Administration Blood Pressure Hydralazine HCl 100 mg 02/01/19 21:21 02/15/19 08:37 Apresoline PO 100 mg TID ENOC Administration Levofloxacin/Dextrose 500 mg in 100 mls @ 66.667 mls/hr 02/12/19 10:00 02/14/19 17:25 Levaquin 500mg/100ml IV 02/20/19 11:29 Infused Q48H ENOC Infusion Protocol Nicotine 14 mg 02/02/19 10:00 02/14/19 10:28 Habitrol TD 14 mg QDAY ENOC Administration Ondansetron HCl 4 mg 02/01/19 20:23 02/07/19 22:45 Zofran IV 4 mg Q8H PRN Administration Nausea And Vomiting Pantoprazole Sodium 40 mg 02/06/19 11:30 02/14/19 10:28 Protonix PO 40 mg QDAY ENOC Administration Sodium Chloride 10 ml 02/01/19 22:00 02/14/19 23:08 Sodium Chloride Flush Syringe 10 Ml IV 10 ml BID ENOC Administration Sodium Chloride 10 ml 02/01/19 20:23 02/04/19 05:25 Sodium Chloride Flush Syringe 10 Ml IV 10 ml PRN PRN Administration LINE FLUSH
[2019-02-15] MEDS: NICOTINE 14 MG/24 HR PATCH TD SCH (11:37)
[2019-02-15] MEDS: DOCUSATE SODIUM 100 MG CAP PO SCH ×2 (11:38→23:03)
[2019-02-15] MEDS: cloNIDine 0.2 MG TAB PO SCH ×2 (11:38→23:04)
[2019-02-15] MEDS: amLODIPine 10 MG TAB PO SCH (11:40)
[2019-02-15] MEDS: ARIPiprazole 5 MG TAB PO SCH (11:40)
[2019-02-15] MEDS: PANTOPRAZOLE 40 MG TAB PO SCH (11:40)
[2019-02-15] MEDS: carvediloL 6.25 MG TAB PO SCH ×2 (11:41→23:04)
[2019-02-15] MEDS: HEPARIN 5,000 UNIT/1 ML VIAL SUB-Q SCH ×2 (11:44→23:05)
[2019-02-15 17:26] LABS: Hepatitis B Surface Antigen Non-Reactive (Negative); Hepatitis C Virus Antibody Non-Reactive (NonReactive)
--- NOTE | 2019-02-15 18:31 | Progress Note ---
Assessment and Plan Assessment and plan: Acute respiratory failure with hypoxia Cont. supp Oxygen Nephrology following Pulmonology following Started iv Antibiotics until pneumonia ruled out since he had fever, leukocytosis Acute encephalopathy -CT head negative -Afebrile, no leukocytosis -Continue Neuro checks -Neurology consulted and ruled out focal seizure, received IV Keppra in the ER -Hold Bacolfen d/t renal function - Possibly underlying psych issues also contributing - Mental health evaluation done Acute unspecified psychosis vs delirium - Started on home medication Abilify 5 mg PO daily, psych following MIKEL on CKD 4 - vasomotor nephropathy versus progression of underlying chronic medical disease -Cr on admission 7.5 -CT abdomen and pelvis showed Indeterminant renal masses -Avoid nephrotoxic agents -Renally dose all meds -Nephrology plans to initiate HD Cont lasix 40mg IV daily for volume Agitation haldol prn -Hx Hypertension -BP uncontrolled. Continue to adjust medications as needed N/V - resolved, likely from viral gastritis or GERD Hx Right subarachnoid hemorrhage, status post right frontal craniotomy Hx aneurysm, status post clipping -Continue supportive care -Neurology recommended outpatient follow Tobacco abuse -Current every day smoker -Counseled for cessation -Nicotine patch when necessary History of bipolar History of schizophrenia -Mental Health consult pending Thrombocytopenia. - cont to Monitor DVT PPX -SCD's Awaiting SNF placement History Interval history: Family and pt want HD Hospitalist Physical - Constitutional Vitals: Temp Pulse Resp BP Pulse Ox 98.4 F 71 18 115/78 100 02/15/19 16:15 02/15/19 16:15 02/15/19 16:15 02/15/19 16:15 02/15/19 16:15 General appearance: Present: no acute distress, well-nourished - EENT Eyes: Present: PERRL, EOM intact ENT: hearing intact, clear oral mucosa, dentition normal - Neck Neck: Present: supple, normal ROM - Respiratory Respiratory effort: normal Respiratory: bilateral: CTA - Cardiovascular Rhythm: regular Heart Sounds: Present: S1 & S2. Absent: gallop, rub - Extremities Extremities: no ischemia, No edema, Full ROM - Abdominal General gastrointestinal: soft, non-tender, non-distended, normal bowel sounds - Integumentary Integumentary: Present: clear, warm, dry - Neurologic Neurologic: CNII-XII intact, moves all extremities Results - Labs CBC & Chem 7: 02/14/19 05:03 02/14/19 05:03 Labs: Laboratory Last Values WBC 9.5 K/mm3 (4.5-11.0) 02/14/19 05:03 RBC 2.95 M/mm3 (3.65-5.03) L 02/14/19 05:03 Hgb 8.2 gm/dl (11.8-15.2) L 02/14/19 05:03 Hct 25.3 % (35.5-45.6) L 02/14/19 05:03 MCV 86 fl (84-94) 02/14/19 05:03 MCH 28 pg (28-32) 02/14/19 05:03 MCHC 32 % (32-34) 02/14/19 05:03 RDW 14.0 % (13.2-15.2) 02/14/19 05:03 Plt Count 232 K/mm3 (140-440) 02/14/19 05:03 Lymph % (Auto) 12.8 % (13.4-35.0) L 02/14/19 05:03 [place] % (Auto) 8.9 % (0.0-7.3) H 02/14/19 05:03 Eos % (Auto) 5.6 % (0.0-4.3) H 02/14/19 05:03 Baso % (Auto) 0.3 % (0.0-1.8) 02/14/19 05:03 Lymph # 1.2 K/mm3 (1.2-5.4) 02/14/19 05:03 [place] # 0.8 K/mm3 (0.0-0.8) 02/14/19 05:03 Eos # 0.5 K/mm3 (0.0-0.4) H 02/14/19 05:03 Baso # 0.0 K/mm3 (0.0-0.1) 02/14/19 05:03 Seg Neutrophils % 72.4 % (40.0-70.0) H 02/14/19 05:03 Seg Neutrophils # 6.9 K/mm3 (1.8-7.7) 02/14/19 05:03 POC ABG pH 7.398 (7.35-7.45) 02/10/19 10:16 ABG pH 7.442 pH Units (7.350-7.450) 02/13/19 08:50 POC ABG pCO2 25.4 (35-45) L 02/10/19 10:16 ABG pCO2 27.9 mm Hg 02/13/19 08:50 ABG pO2 58.1 mm Hg (80.0-90.0) L 02/13/19 08:50 POC ABG HCO3 15.6 (22-26 mml/L) 02/10/19 10:16 ABG HCO3 18.6 mmol/L (20.0-26.0) L 02/13/19 08:50 POC ABG Total CO2 16 (23-27mmol/L) 02/10/19 10:16 POC ABG O2 Sat 76 02/10/19 10:16 ABG O2 Saturation 90.9 % (95.0-99.0) L 02/13/19 08:50 ABG O2 Content 11.3 (0.0-44) 02/13/19 08:50 POC ABG Base Excess -9 ((-2) - (+3)mmol/L) 02/10/19 10:16 ABG Base Excess -4.6 mmol/L (-2.0-3.0) L 02/13/19 08:50 ABG Hemoglobin 9.0 gm/dl (14.0-18.0) L 02/13/19 08:50 ABG Carboxyhemoglobin 2.0 % (0.0-5.0) 02/13/19 08:50 ABG Methemoglobin 0.6 % (0.0-1.5) 02/13/19 08:50 Oxyhemoglobin 88.6 % (95.0-99.0) L 02/13/19 08:50 FiO2 40 % 02/13/19 08:50 Sodium 144 mmol/L (137-145) 02/14/19 05:03 Potassium 4.1 mmol/L (3.6-5.0) 02/14/19 05:03 Chloride 110.7 mmol/L (98-107) H 02/14/19 05:03 Carbon Dioxide 18 mmol/L (22-30) L 02/14/19 05:03 Anion Gap 19 mmol/L 02/14/19 05:03 BUN 107 mg/dL (9-20) H 02/14/19 05:03 Creatinine 10.4 mg/dL (0.8-1.5) H 02/14/19 05:03 Estimated GFR 6 ml/min 02/14/19 05:03 BUN/Creatinine Ratio 10 % 02/14/19 05:03 Glucose 106 mg/dL (75-100) H 02/14/19 05:03 POC Glucose 134 (70-105) H 02/06/19 21:06 Hemoglobin A1c < 4.0 % (4-6) L 02/07/19 07:41 Calcium 8.6 mg/dL (8.4-10.2) 02/14/19 05:03 Phosphorus 2.20 mg/dL (2.5-4.5) L 02/10/19 10:03 Magnesium 1.60 mg/dL (1.7-2.3) L 02/10/19 10:03 Total Bilirubin 0.40 mg/dL (0.1-1.2) 02/10/19 10:03 AST 27 units/L (5-40) 02/10/19 10:03 ALT 23 units/L (7-56) 02/10/19 10:03 Alkaline Phosphatase 70 units/L (35-129) 02/10/19 10:03 Ammonia 34.0 umol/L (25-60) 02/01/19 17:52 Total Creatine Kinase 66 units/L (55-170) 02/01/19 17:52 Total Protein 5.9 g/dL (6.3-8.2) L 02/10/19 10:03 Albumin 3.1 g/dL (3.9-5) L 02/10/19 10:03 Albumin/Globulin Ratio 1.1 % 02/10/19 10:03 Triglycerides 135 mg/dL (2-149) 02/07/19 07:41 Cholesterol 155 mg/dL (50-199) 02/07/19 07:41 LDL Cholesterol Direct 101 mg/dL (50-130) 02/07/19 07:41 HDL Cholesterol 39 mg/dL (40-59) L 02/07/19 07:41 Cholesterol/HDL Ratio 3.97 % 02/07/19 07:41 TSH 1.990 mlU/mL (0.270-4.200) 02/01/19 17:52 Urine Color Yellow (Yellow) 02/01/19 20:45 Urine Turbidity Slightly-cloudy (Clear) 02/01/19 20:45 Urine pH 5.0 (5.0-7.0) 02/01/19 20:45 Ur Specific [place] 1.013 (1.003-1.030) 02/01/19 20:45 Urine Protein >500 mg/dL (Negative) 02/01/19 20:45 Urine Glucose (UA) Neg mg/dL (Negative) 02/01/19 20:45 Urine Ketones Neg mg/dL (Negative) 02/01/19 20:45 Urine Blood Sm (Negative) 02/01/19 20:45 Urine Nitrite Neg (Negative) 02/01/19 20:45 Urine Bilirubin Neg (Negative) 02/01/19 20:45 Urine Urobilinogen < 2.0 mg/dL (<2.0) 02/01/19 20:45 Ur Leukocyte Esterase Neg (Negative) 02/01/19 20:45 Urine WBC (Auto) 2.0 /HPF (0.0-6.0) 02/01/19 20:45 Urine RBC (Auto) 3.0 /HPF (0.0-6.0) 02/01/19 20:45 U Epithel Cells (Auto) 1.0 /HPF (0-13.0) 02/01/19 20:45 Urine Bacteria (Auto) 1+ /HPF (Negative) 02/01/19 20:45 Urine Mucus Few /HPF 02/01/19 20:45 Urine Yeast (Budding) 1+ /HPF 02/01/19 20:45 Urine Eosinophils None seen (None Seen) 02/02/19 02:30 Urine Creatinine 115.8 mg/dL (0.1-20.0) H 02/02/19 02:30 Urine Sodium 99 mmol/L 02/02/19 02:30 Urine Total Protein 198 mg/dL (5-11.8) H 02/02/19 02:30 Salicylates < 0.3 mg/dL (2.8-20.0) L 02/01/19 17:52 Acetaminophen < 5.0 ug/mL (10.0-30.0) L 02/01/19 17:52 Plasma/Serum Alcohol < 0.01 % (0-0.07) 02/01/19 17:52 Hepatitis A IgM Ab Non-reactive (NonReactive) 02/15/19 16:41 Hep Bs Antigen Non-reactive (Negative) 02/15/19 16:41 Hep B Core IgM Ab Non-reactive (NonReactive) 02/15/19 16:41 Hepatitis C Antibody Non-reactive (NonReactive) 02/15/19 16:41 Active Medications - Current Medications Current Medications: Generic Name Dose Route Start Last Admin Trade Name Freq PRN Reason Stop Dose Admin Acetaminophen 650 mg 02/01/19 20:23 02/13/19 09:22 Tylenol PO 650 mg Q4H PRN Administration Pain MILD(1-3)/Fever >100.5/QUAN Amlodipine Besylate 10 mg 02/01/19 21:00 02/15/19 11:40 Amlodipine PO 10 mg QDAY ENOC Administration Aripiprazole 5 mg 02/06/19 13:00 02/15/19 11:40 Aripiprazole PO 5 mg QDAY ENOC Administration Carvedilol 6.25 mg 02/01/19 21:21 02/15/19 11:41 Coreg PO 6.25 mg BID ENOC Administration Clonidine HCl 0.2 mg 02/06/19 11:30 02/15/19 11:38 Catapres PO 0.2 mg Q12HR ENOC Administration Docusate Sodium 100 mg 02/01/19 22:00 02/15/19 11:38 Colace PO 100 mg BID ENOC Administration Furosemide 40 mg 02/14/19 06:00 02/15/19 05:49 Lasix IV 40 mg 0600 ENOC Administration Haloperidol Lactate 5 mg 02/08/19 11:09 02/09/19 21:03 Haldol IM 5 mg Q6H PRN Administration Agitation Heparin Sodium (Porcine) 5,000 unit 02/11/19 22:00 02/15/19 11:44 Heparin SUB-Q 5,000 unit Q12HR ENOC Administration Hydralazine HCl 10 mg 02/01/19 20:12 02/07/19 22:55 Apresoline IV 10 mg Q4HR PRN Administration Blood Pressure Hydralazine HCl 100 mg 02/01/19 21:21 02/15/19 08:37 Apresoline PO 100 mg TID ENOC Administration Levofloxacin/Dextrose 500 mg in 100 mls @ 66.667 mls/hr 02/12/19 10:00 02/14/19 17:25 Levaquin 500mg/100ml IV 02/20/19 11:29 Infused Q48H ENOC Infusion Protocol Nicotine 14 mg 02/02/19 10:00 02/15/19 11:37 Habitrol TD 14 mg QDAY ENOC Administration Ondansetron HCl 4 mg 02/01/19 20:23 02/07/19 22:45 Zofran IV 4 mg Q8H PRN Administration Nausea And Vomiting Pantoprazole Sodium 40 mg 02/06/19 11:30 02/15/19 11:40 Protonix PO 40 mg QDAY ENOC Administration Sodium Chloride 10 ml 02/01/19 22:00 02/15/19 11:44 Sodium Chloride Flush Syringe 10 Ml IV 10 ml BID ENOC Administration Sodium Chloride 10 ml 02/01/19 20:23 02/04/19 05:25 Sodium Chloride Flush Syringe 10 Ml IV 10 ml PRN PRN Administration LINE FLUSH Nutrition/Malnutrition Assess - Dietary Evaluation Nutrition/Malnutrition Findings: Nutrition Notes Start: 02/03/19 09:42 Freq: Status: Active Protocol: Document 02/08/19 10:03 LP (Rec: 02/08/19 10:05 LP [email or web address]) Nutrition Notes Need for Assessment generated from: LOS Initial or Follow up Brief Note Subjective/Other Information Screen for LOS. Pt continues eating well. Consuming at least 75% of meals. Nutrition Intervention Revisit per MD consult or patient Sign Off request:
[2019-02-16 05:43] LABS: Calcium 8.3 mg/dL (8.4-10.2)
[2019-02-16] MEDS: FUROSEMIDE 100 MG/10 ML INJ IV SCH (05:52)
[2019-02-16] MEDS: hydrALAZINE 100 MG TAB PO SCH ×5 (08:00→21:43)
[2019-02-16] MEDS: amLODIPine 10 MG TAB PO SCH (12:53)
[2019-02-16] MEDS: cloNIDine 0.2 MG TAB PO SCH ×2 (12:55→21:43)
[2019-02-16] MEDS: NICOTINE 14 MG/24 HR PATCH TD SCH (12:55)
[2019-02-16] MEDS: DOCUSATE SODIUM 100 MG CAP PO SCH ×2 (12:55→21:42)
[2019-02-16] MEDS: carvediloL 6.25 MG TAB PO SCH ×2 (12:56→21:42)
[2019-02-16] MEDS: PANTOPRAZOLE 40 MG TAB PO SCH (12:56)
[2019-02-16] MEDS: ARIPiprazole 5 MG TAB PO SCH (13:02)
[2019-02-16] MEDS: HEPARIN 5,000 UNIT/1 ML VIAL SUB-Q SCH ×2 (13:05→21:43)
--- NOTE | 2019-02-16 16:59 | Progress Note ---
Assessment and Plan Assessment and plan: Acute respiratory failure with hypoxia Cont. supp Oxygen Pulmonology following Metabolic encephalopathy -CT head negative -Continue Neuro checks -Neurology consulted and ruled out focal seizure, received IV Keppra in the ER -Hold Bacolfen d/t renal function - Possibly underlying psych issues also contributing - Mental health evaluation done hx schizophrenia and bipolar - Abilify 5 mg PO daily, psych following MIKEL on CKD 4 - vasomotor nephropathy versus progression of underlying chronic medical disease -Cr on admission 7.5 -CT abdomen and pelvis showed Indeterminant renal masses -Avoid nephrotoxic agents -Renally dose all meds -Nephrology plans to initiate HD--I d/w with Nephrology today -Vascular consult for vascath placement Cont lasix 40mg IV daily for volume Agitation haldol prn -Hx Hypertension -BP uncontrolled. Continue to adjust medications as needed N/V - resolved, likely from viral gastritis or GERD Hx Right subarachnoid hemorrhage, status post right frontal craniotomy Hx aneurysm, status post clipping -Continue supportive care -Neurology recommended outpatient follow Tobacco abuse -Current every day smoker -Counseled for cessation -Nicotine patch when necessary Thrombocytopenia. - cont to Monitor DVT PPX -SCD's Awaiting SNF placement History Interval history: Family and pt want HD Hospitalist Physical - Constitutional Vitals: Temp Pulse Resp BP Pulse Ox 98.6 F 78 18 135/73 100 02/16/19 16:39 02/16/19 16:39 02/16/19 16:39 02/16/19 16:39 02/16/19 16:39 General appearance: Present: no acute distress, well-nourished - EENT Eyes: Present: PERRL, EOM intact ENT: hearing intact, clear oral mucosa, dentition normal - Neck Neck: Present: supple, normal ROM - Respiratory Respiratory effort: normal Respiratory: bilateral: CTA - Cardiovascular Rhythm: regular Heart Sounds: Present: S1 & S2. Absent: gallop, rub - Extremities Extremities: no ischemia, No edema, Full ROM - Abdominal General gastrointestinal: soft, non-tender, non-distended, normal bowel sounds - Integumentary Integumentary: Present: clear, warm, dry - Neurologic Neurologic: CNII-XII intact, moves all extremities Results - Labs CBC & Chem 7: 02/14/19 05:03 02/16/19 04:43 Labs: Laboratory Last Values WBC 9.5 K/mm3 (4.5-11.0) 02/14/19 05:03 RBC 2.95 M/mm3 (3.65-5.03) L 02/14/19 05:03 Hgb 8.2 gm/dl (11.8-15.2) L 02/14/19 05:03 Hct 25.3 % (35.5-45.6) L 02/14/19 05:03 MCV 86 fl (84-94) 02/14/19 05:03 MCH 28 pg (28-32) 02/14/19 05:03 MCHC 32 % (32-34) 02/14/19 05:03 RDW 14.0 % (13.2-15.2) 02/14/19 05:03 Plt Count 232 K/mm3 (140-440) 02/14/19 05:03 Lymph % (Auto) 12.8 % (13.4-35.0) L 02/14/19 05:03 [place] % (Auto) 8.9 % (0.0-7.3) H 02/14/19 05:03 Eos % (Auto) 5.6 % (0.0-4.3) H 02/14/19 05:03 Baso % (Auto) 0.3 % (0.0-1.8) 02/14/19 05:03 Lymph # 1.2 K/mm3 (1.2-5.4) 02/14/19 05:03 [place] # 0.8 K/mm3 (0.0-0.8) 02/14/19 05:03 Eos # 0.5 K/mm3 (0.0-0.4) H 02/14/19 05:03 Baso # 0.0 K/mm3 (0.0-0.1) 02/14/19 05:03 Seg Neutrophils % 72.4 % (40.0-70.0) H 02/14/19 05:03 Seg Neutrophils # 6.9 K/mm3 (1.8-7.7) 02/14/19 05:03 POC ABG pH 7.398 (7.35-7.45) 02/10/19 10:16 ABG pH 7.442 pH Units (7.350-7.450) 02/13/19 08:50 POC ABG pCO2 25.4 (35-45) L 02/10/19 10:16 ABG pCO2 27.9 mm Hg 02/13/19 08:50 ABG pO2 58.1 mm Hg (80.0-90.0) L 02/13/19 08:50 POC ABG HCO3 15.6 (22-26 mml/L) 02/10/19 10:16 ABG HCO3 18.6 mmol/L (20.0-26.0) L 02/13/19 08:50 POC ABG Total CO2 16 (23-27mmol/L) 02/10/19 10:16 POC ABG O2 Sat 76 02/10/19 10:16 ABG O2 Saturation 90.9 % (95.0-99.0) L 02/13/19 08:50 ABG O2 Content 11.3 (0.0-44) 02/13/19 08:50 POC ABG Base Excess -9 ((-2) - (+3)mmol/L) 02/10/19 10:16 ABG Base Excess -4.6 mmol/L (-2.0-3.0) L 02/13/19 08:50 ABG Hemoglobin 9.0 gm/dl (14.0-18.0) L 02/13/19 08:50 ABG Carboxyhemoglobin 2.0 % (0.0-5.0) 02/13/19 08:50 ABG Methemoglobin 0.6 % (0.0-1.5) 02/13/19 08:50 Oxyhemoglobin 88.6 % (95.0-99.0) L 02/13/19 08:50 FiO2 40 % 02/13/19 08:50 Sodium 143 mmol/L (137-145) 02/16/19 04:43 Potassium 4.3 mmol/L (3.6-5.0) 02/16/19 04:43 Chloride 110.7 mmol/L (98-107) H 02/16/19 04:43 Carbon Dioxide 19 mmol/L (22-30) L 02/16/19 04:43 Anion Gap 18 mmol/L 02/16/19 04:43 BUN 118 mg/dL (9-20) H 02/16/19 04:43 Creatinine 10.6 mg/dL (0.8-1.5) H 02/16/19 04:43 Estimated GFR 6 ml/min 02/16/19 04:43 BUN/Creatinine Ratio 11 % 02/16/19 04:43 Glucose 104 mg/dL (75-100) H 02/16/19 04:43 POC Glucose 134 (70-105) H 02/06/19 21:06 Hemoglobin A1c < 4.0 % (4-6) L 02/07/19 07:41 Calcium 8.3 mg/dL (8.4-10.2) L 02/16/19 04:43 Phosphorus 2.20 mg/dL (2.5-4.5) L 02/10/19 10:03 Magnesium 1.60 mg/dL (1.7-2.3) L 02/10/19 10:03 Total Bilirubin 0.40 mg/dL (0.1-1.2) 02/10/19 10:03 AST 27 units/L (5-40) 02/10/19 10:03 ALT 23 units/L (7-56) 02/10/19 10:03 Alkaline Phosphatase 70 units/L (35-129) 02/10/19 10:03 Ammonia 34.0 umol/L (25-60) 02/01/19 17:52 Total Creatine Kinase 66 units/L (55-170) 02/01/19 17:52 Total Protein 5.9 g/dL (6.3-8.2) L 02/10/19 10:03 Albumin 3.1 g/dL (3.9-5) L 02/10/19 10:03 Albumin/Globulin Ratio 1.1 % 02/10/19 10:03 Triglycerides 135 mg/dL (2-149) 02/07/19 07:41 Cholesterol 155 mg/dL (50-199) 02/07/19 07:41 LDL Cholesterol Direct 101 mg/dL (50-130) 02/07/19 07:41 HDL Cholesterol 39 mg/dL (40-59) L 02/07/19 07:41 Cholesterol/HDL Ratio 3.97 % 02/07/19 07:41 TSH 1.990 mlU/mL (0.270-4.200) 02/01/19 17:52 Urine Color Yellow (Yellow) 02/01/19 20:45 Urine Turbidity Slightly-cloudy (Clear) 02/01/19 20:45 Urine pH 5.0 (5.0-7.0) 02/01/19 20:45 Ur Specific [place] 1.013 (1.003-1.030) 02/01/19 20:45 Urine Protein >500 mg/dL (Negative) 02/01/19 20:45 Urine Glucose (UA) Neg mg/dL (Negative) 02/01/19 20:45 Urine Ketones Neg mg/dL (Negative) 02/01/19 20:45 Urine Blood Sm (Negative) 02/01/19 20:45 Urine Nitrite Neg (Negative) 02/01/19 20:45 Urine Bilirubin Neg (Negative) 02/01/19 20:45 Urine Urobilinogen < 2.0 mg/dL (<2.0) 02/01/19 20:45 Ur Leukocyte Esterase Neg (Negative) 02/01/19 20:45 Urine WBC (Auto) 2.0 /HPF (0.0-6.0) 02/01/19 20:45 Urine RBC (Auto) 3.0 /HPF (0.0-6.0) 02/01/19 20:45 U Epithel Cells (Auto) 1.0 /HPF (0-13.0) 02/01/19 20:45 Urine Bacteria (Auto) 1+ /HPF (Negative) 02/01/19 20:45 Urine Mucus Few /HPF 02/01/19 20:45 Urine Yeast (Budding) 1+ /HPF 02/01/19 20:45 Urine Eosinophils None seen (None Seen) 02/02/19 02:30 Urine Creatinine 115.8 mg/dL (0.1-20.0) H 02/02/19 02:30 Urine Sodium 99 mmol/L 02/02/19 02:30 Urine Total Protein 198 mg/dL (5-11.8) H 02/02/19 02:30 Salicylates < 0.3 mg/dL (2.8-20.0) L 02/01/19 17:52 Acetaminophen < 5.0 ug/mL (10.0-30.0) L 02/01/19 17:52 Plasma/Serum Alcohol < 0.01 % (0-0.07) 02/01/19 17:52 Hepatitis A IgM Ab Non-reactive (NonReactive) 02/15/19 16:41 Hep Bs Antigen Non-reactive (Negative) 02/15/19 16:41 Hep B Core IgM Ab Non-reactive (NonReactive) 02/15/19 16:41 Hepatitis C Antibody Non-reactive (NonReactive) 02/15/19 16:41 Active Medications - Current Medications Current Medications: Generic Name Dose Route Start Last Admin Trade Name Freq PRN Reason Stop Dose Admin Acetaminophen 650 mg 02/01/19 20:23 02/13/19 09:22 Tylenol PO 650 mg Q4H PRN Administration Pain MILD(1-3)/Fever >100.5/QUAN Amlodipine Besylate 10 mg 02/01/19 21:00 02/16/19 12:53 Amlodipine PO 10 mg QDAY ENOC Administration Aripiprazole 5 mg 02/06/19 13:00 02/16/19 13:02 Aripiprazole PO 5 mg QDAY ENOC Administration Carvedilol 6.25 mg 02/01/19 21:21 02/16/19 12:56 Coreg PO 6.25 mg BID ENOC Administration Clonidine HCl 0.2 mg 02/06/19 11:30 02/16/19 12:55 Catapres PO 0.2 mg Q12HR ENOC Administration Docusate Sodium 100 mg 02/01/19 22:00 02/16/19 12:55 Colace PO 100 mg BID ENOC Administration Furosemide 40 mg 02/14/19 06:00 02/16/19 05:52 Lasix IV 40 mg 0600 ENOC Administration Haloperidol Lactate 5 mg 02/08/19 11:09 02/09/19 21:03 Haldol IM 5 mg Q6H PRN Administration Agitation Heparin Sodium (Porcine) 5,000 unit 02/11/19 22:00 02/16/19 13:05 Heparin SUB-Q 5,000 unit Q12HR ENOC Administration Hydralazine HCl 10 mg 02/01/19 20:12 02/07/19 22:55 Apresoline IV 10 mg Q4HR PRN Administration Blood Pressure Hydralazine HCl 100 mg 02/01/19 21:21 02/16/19 14:02 Apresoline PO 100 mg TID ENOC Administration Levofloxacin/Dextrose 500 mg in 100 mls @ 66.667 mls/hr 02/12/19 10:00 02/16/19 13:03 Levaquin 500mg/100ml IV 02/20/19 11:29 100 mls/hr Q48H ENOC Administration Protocol Nicotine 14 mg 02/02/19 10:00 02/16/19 12:55 Habitrol TD 14 mg QDAY ENOC Administration Ondansetron HCl 4 mg 02/01/19 20:23 02/07/19 22:45 Zofran IV 4 mg Q8H PRN Administration Nausea And Vomiting Pantoprazole Sodium 40 mg 02/06/19 11:30 02/16/19 12:56 Protonix PO 40 mg QDAY ENOC Administration Sodium Chloride 10 ml 02/01/19 22:00 02/16/19 13:00 Sodium Chloride Flush Syringe 10 Ml IV 10 ml BID ENOC Administration Sodium Chloride 10 ml 02/01/19 20:23 02/04/19 05:25 Sodium Chloride Flush Syringe 10 Ml IV 10 ml PRN PRN Administration LINE FLUSH Nutrition/Malnutrition Assess - Dietary Evaluation Nutrition/Malnutrition Findings: Nutrition Notes Start: 02/03/19 09:42 Freq: Status: Active Protocol: Document 02/08/19 10:03 LP (Rec: 02/08/19 10:05 LP [email or web address]) Nutrition Notes Need for Assessment generated from: LOS Initial or Follow up Brief Note Subjective/Other Information Screen for LOS. Pt continues eating well. Consuming at least 75% of meals. Nutrition Intervention Revisit per MD consult or patient Sign Off request:
[2019-02-16] MEDS ORDERED: SODIUM CHLORIDE 0.9% 100 ML IV PRN (17:12)
--- NOTE | 2019-02-16 17:12 | Progress Note ---
Assessment and Plan - Patient Problems (1) Acute kidney injury Current Visit: Yes Status: Acute Plan to address problem: after discussion with pt's and pt about benefits, risks of hemodialysis, and answering all questions, they are agreeing to initiation of hemodialysis. They declined palliative care. vascular surgery consulted for marilyn gaviria. HD to be initiated once access is available. (2) Acute respiratory failure with hypoxia Current Visit: Yes Status: Acute Plan to address problem: Continue current IV diuretic regimen. Strict I's and O's. Avoid standing IV fluids. Continue on high flow nasal cannula per primary team with weaning as tolerated. We'll continue to monitor. (3) Hypertensive chronic kidney disease with stage 1 through stage 4 chronic kidney disease, or unspecified chronic kidney disease Current Visit: Yes Status: Chronic Plan to address problem: Continue to monitor blood pressures under current regimen. (4) Proteinuria Current Visit: Yes Status: Acute Plan to address problem: Non nephrotic range proteinuria. Will continue to monitor. (5) Schizoaffective disorder Current Visit: Yes Status: Chronic Plan to address problem: Management per primary attending Subjective Date of service: 02/16/19 Principal diagnosis: acute kidney injury Interval history: Pt awake, alert, however disoriented, intermittent paranoidal thoughts, in no acute respiratory distress Objective - Vital Signs Vital signs: Vital Signs - 12hr 02/16/19 02/16/19 02/16/19 08:05 10:00 11:24 Temperature 98.6 F 98.4 F Pulse Rate 66 Pulse Rate [ 69 Radial] Respiratory 18 18 Rate Respiratory 16 Rate [Bilateral Lower] Blood Pressure 113/78 133/94 O2 Sat by Pulse 100 897 H 86 Oximetry 02/16/19 02/16/19 02/16/19 12:53 12:55 12:56 Temperature Pulse Rate 78 78 78 Pulse Rate [ Radial] Respiratory Rate Respiratory Rate [Bilateral Lower] Blood Pressure O2 Sat by Pulse Oximetry 02/16/19 16:39 Temperature 98.6 F Pulse Rate 78 Pulse Rate [ Radial] Respiratory 18 Rate Respiratory Rate [Bilateral Lower] Blood Pressure 135/73 O2 Sat by Pulse 100 Oximetry - General Appearance General appearance: well-developed, well-nourished, appears stated age EENT: ATNC, PERRL, mucous membranes moist Neck: no JVD Respiratory: Present: Clear to Ascultation Cardiology: regular, S1S2 Gastrointestinal: normoactive bowel sounds, other (no edema ) Integumentary: no rash Neurologic: no focal deficit, strength 5/5, CN 3-12 intact - Lab 02/14/19 05:03 02/16/19 04:43 Most recent lab results ABG pH 7.442 pH Units (7.350-7.450) 02/13/19 08:50 ABG pCO2 27.9 mm Hg 02/13/19 08:50 ABG pO2 58.1 mm Hg (80.0-90.0) L 02/13/19 08:50 ABG HCO3 18.6 mmol/L (20.0-26.0) L 02/13/19 08:50 ABG O2 Saturation 90.9 % (95.0-99.0) L 02/13/19 08:50 Calcium 8.3 mg/dL (8.4-10.2) L 02/16/19 04:43 Phosphorus 2.20 mg/dL (2.5-4.5) L 02/10/19 10:03 Magnesium 1.60 mg/dL (1.7-2.3) L 02/10/19 10:03 Urine Creatinine 115.8 mg/dL (0.1-20.0) H 02/02/19 02:30 Urine Sodium 99 mmol/L 02/02/19 02:30 Urine Total Protein 198 mg/dL (5-11.8) H 02/02/19 02:30 Medications & Allergies - Medications Allergies/Adverse Reactions: Allergies No Known Allergies Allergy (Unverified 04/17/17 13:03) Home Medications: Home Medications Medication Instructions Recorded Confirmed Last Taken Type ARIPiprazole [Abilify] 20 mg PO QDAY 02/03/19 02/03/19 1 Day Ago History ~02/02/19 Losartan/Hydrochlorothiazide 1 each PO QDAY 02/03/19 02/03/19 Unknown History [Losartan-Hctz 100-25 mg Tab] Active Medications: Generic Name Dose Route Start Last Admin Trade Name Freq PRN Reason Stop Dose Admin Acetaminophen 650 mg 02/01/19 20:23 02/13/19 09:22 Tylenol PO 650 mg Q4H PRN Administration Pain MILD(1-3)/Fever >100.5/QUAN Amlodipine Besylate 10 mg 02/01/19 21:00 02/16/19 12:53 Amlodipine PO 10 mg QDAY ENOC Administration Aripiprazole 5 mg 02/06/19 13:00 02/16/19 13:02 Aripiprazole PO 5 mg QDAY ENOC Administration Carvedilol 6.25 mg 02/01/19 21:21 02/16/19 12:56 Coreg PO 6.25 mg BID ENOC Administration Clonidine HCl 0.2 mg 02/06/19 11:30 02/16/19 12:55 Catapres PO 0.2 mg Q12HR ENOC Administration Docusate Sodium 100 mg 02/01/19 22:00 02/16/19 12:55 Colace PO 100 mg BID ENOC Administration Furosemide 40 mg 02/14/19 06:00 02/16/19 05:52 Lasix IV 40 mg 0600 ENOC Administration Haloperidol Lactate 5 mg 02/08/19 11:09 02/09/19 21:03 Haldol IM 5 mg Q6H PRN Administration Agitation Heparin Sodium (Porcine) 5,000 unit 02/11/19 22:00 02/16/19 13:05 Heparin SUB-Q 5,000 unit Q12HR ENOC Administration Hydralazine HCl 10 mg 02/01/19 20:12 02/07/19 22:55 Apresoline IV 10 mg Q4HR PRN Administration Blood Pressure Hydralazine HCl 100 mg 02/01/19 21:21 02/16/19 14:02 Apresoline PO 100 mg TID ENOC Administration Levofloxacin/Dextrose 500 mg in 100 mls @ 66.667 mls/hr 02/12/19 10:00 02/16/19 13:03 Levaquin 500mg/100ml IV 02/20/19 11:29 100 mls/hr Q48H ENOC Administration Protocol Nicotine 14 mg 02/02/19 10:00 02/16/19 12:55 Habitrol TD 14 mg QDAY ENOC Administration Ondansetron HCl 4 mg 02/01/19 20:23 02/07/19 22:45 Zofran IV 4 mg Q8H PRN Administration Nausea And Vomiting Pantoprazole Sodium 40 mg 02/06/19 11:30 02/16/19 12:56 Protonix PO 40 mg QDAY ENOC Administration Sodium Chloride 10 ml 02/01/19 22:00 02/16/19 13:00 Sodium Chloride Flush Syringe 10 Ml IV 10 ml BID ENOC Administration Sodium Chloride 10 ml 02/01/19 20:23 02/04/19 05:25 Sodium Chloride Flush Syringe 10 Ml IV 10 ml PRN PRN Administration LINE FLUSH
[2019-02-17] MEDS: FUROSEMIDE 100 MG/10 ML INJ IV SCH (05:25)
[2019-02-17] MEDS: hydrALAZINE 100 MG TAB PO SCH ×3 (08:59→20:41)
[2019-02-17] MEDS: DOCUSATE SODIUM 100 MG CAP PO SCH ×2 (10:04→20:40)
[2019-02-17] MEDS: ARIPiprazole 5 MG TAB PO SCH (10:04)
[2019-02-17] MEDS: cloNIDine 0.2 MG TAB PO SCH ×3 (10:04→22:37)
[2019-02-17] MEDS: amLODIPine 10 MG TAB PO SCH (10:04)
[2019-02-17] MEDS: carvediloL 6.25 MG TAB PO SCH ×3 (10:05→22:36)
[2019-02-17] MEDS: NICOTINE 14 MG/24 HR PATCH TD SCH (10:05)
[2019-02-17] MEDS: PANTOPRAZOLE 40 MG TAB PO SCH (10:06)
[2019-02-17] MEDS: HEPARIN 5,000 UNIT/1 ML VIAL SUB-Q SCH ×3 (10:06→22:37)
--- NOTE | 2019-02-17 11:55 | Progress Note ---
Assessment and Plan Assessment and plan: MIKEL on CKD 4 - vasomotor nephropathy versus progression of underlying chronic medical disease -Cr on admission 7.5 -CT abdomen and pelvis showed Indeterminant renal masses -Avoid nephrotoxic agents -Renally dose all meds -Nephrology plans to initiate HD--I d/w with Nephrology today -Vascular consult for vascath placement Acute respiratory failure with hypoxia Cont. supp Oxygen Pulmonology following Metabolic encephalopathy -CT head negative -Continue Neuro checks -Neurology consulted and ruled out focal seizure, received IV Keppra in the ER -Hold Bacolfen d/t renal function - Possibly underlying psych issues also contributing - Mental health evaluation done hx schizophrenia and bipolar - Abilify 5 mg PO daily, psych following Agitation haldol prn -Hx Hypertension -BP uncontrolled. Continue to adjust medications as needed Hx Right subarachnoid hemorrhage, status post right frontal craniotomy Hx aneurysm, status post clipping -Continue supportive care -Neurology recommended outpatient follow Tobacco abuse -Current every day smoker -Counseled for cessation -Nicotine patch when necessary Thrombocytopenia. - cont to Monitor DVT PPX -SCD's Awaiting SNF placement History Interval history: Family and pt want HD Hospitalist Physical - Constitutional Vitals: Temp Pulse Resp BP Pulse Ox 98.5 F 70 20 140/92 97 02/17/19 07:55 02/17/19 07:55 02/17/19 07:55 02/17/19 07:55 02/17/19 07:55 General appearance: Present: no acute distress, well-nourished - EENT Eyes: Present: PERRL, EOM intact ENT: hearing intact, clear oral mucosa, dentition normal - Neck Neck: Present: supple, normal ROM - Respiratory Respiratory effort: normal Respiratory: bilateral: CTA - Cardiovascular Rhythm: regular Heart Sounds: Present: S1 & S2. Absent: gallop, rub - Extremities Extremities: no ischemia, No edema, Full ROM - Abdominal General gastrointestinal: soft, non-tender, non-distended, normal bowel sounds - Integumentary Integumentary: Present: clear, warm, dry - Neurologic Neurologic: CNII-XII intact, moves all extremities Results - Labs CBC & Chem 7: 02/14/19 05:03 02/16/19 04:43 Labs: Laboratory Last Values WBC 9.5 K/mm3 (4.5-11.0) 02/14/19 05:03 RBC 2.95 M/mm3 (3.65-5.03) L 02/14/19 05:03 Hgb 8.2 gm/dl (11.8-15.2) L 02/14/19 05:03 Hct 25.3 % (35.5-45.6) L 02/14/19 05:03 MCV 86 fl (84-94) 02/14/19 05:03 MCH 28 pg (28-32) 02/14/19 05:03 MCHC 32 % (32-34) 02/14/19 05:03 RDW 14.0 % (13.2-15.2) 02/14/19 05:03 Plt Count 232 K/mm3 (140-440) 02/14/19 05:03 Lymph % (Auto) 12.8 % (13.4-35.0) L 02/14/19 05:03 [place] % (Auto) 8.9 % (0.0-7.3) H 02/14/19 05:03 Eos % (Auto) 5.6 % (0.0-4.3) H 02/14/19 05:03 Baso % (Auto) 0.3 % (0.0-1.8) 02/14/19 05:03 Lymph # 1.2 K/mm3 (1.2-5.4) 02/14/19 05:03 [place] # 0.8 K/mm3 (0.0-0.8) 02/14/19 05:03 Eos # 0.5 K/mm3 (0.0-0.4) H 02/14/19 05:03 Baso # 0.0 K/mm3 (0.0-0.1) 02/14/19 05:03 Seg Neutrophils % 72.4 % (40.0-70.0) H 02/14/19 05:03 Seg Neutrophils # 6.9 K/mm3 (1.8-7.7) 02/14/19 05:03 POC ABG pH 7.398 (7.35-7.45) 02/10/19 10:16 ABG pH 7.442 pH Units (7.350-7.450) 02/13/19 08:50 POC ABG pCO2 25.4 (35-45) L 02/10/19 10:16 ABG pCO2 27.9 mm Hg 02/13/19 08:50 ABG pO2 58.1 mm Hg (80.0-90.0) L 02/13/19 08:50 POC ABG HCO3 15.6 (22-26 mml/L) 02/10/19 10:16 ABG HCO3 18.6 mmol/L (20.0-26.0) L 02/13/19 08:50 POC ABG Total CO2 16 (23-27mmol/L) 02/10/19 10:16 POC ABG O2 Sat 76 02/10/19 10:16 ABG O2 Saturation 90.9 % (95.0-99.0) L 02/13/19 08:50 ABG O2 Content 11.3 (0.0-44) 02/13/19 08:50 POC ABG Base Excess -9 ((-2) - (+3)mmol/L) 02/10/19 10:16 ABG Base Excess -4.6 mmol/L (-2.0-3.0) L 02/13/19 08:50 ABG Hemoglobin 9.0 gm/dl (14.0-18.0) L 02/13/19 08:50 ABG Carboxyhemoglobin 2.0 % (0.0-5.0) 02/13/19 08:50 ABG Methemoglobin 0.6 % (0.0-1.5) 02/13/19 08:50 Oxyhemoglobin 88.6 % (95.0-99.0) L 02/13/19 08:50 FiO2 40 % 02/13/19 08:50 Sodium 143 mmol/L (137-145) 02/16/19 04:43 Potassium 4.3 mmol/L (3.6-5.0) 02/16/19 04:43 Chloride 110.7 mmol/L (98-107) H 02/16/19 04:43 Carbon Dioxide 19 mmol/L (22-30) L 02/16/19 04:43 Anion Gap 18 mmol/L 02/16/19 04:43 BUN 118 mg/dL (9-20) H 02/16/19 04:43 Creatinine 10.6 mg/dL (0.8-1.5) H 02/16/19 04:43 Estimated GFR 6 ml/min 02/16/19 04:43 BUN/Creatinine Ratio 11 % 02/16/19 04:43 Glucose 104 mg/dL (75-100) H 02/16/19 04:43 POC Glucose 134 (70-105) H 02/06/19 21:06 Hemoglobin A1c < 4.0 % (4-6) L 02/07/19 07:41 Calcium 8.3 mg/dL (8.4-10.2) L 02/16/19 04:43 Phosphorus 2.20 mg/dL (2.5-4.5) L 02/10/19 10:03 Magnesium 1.60 mg/dL (1.7-2.3) L 02/10/19 10:03 Total Bilirubin 0.40 mg/dL (0.1-1.2) 02/10/19 10:03 AST 27 units/L (5-40) 02/10/19 10:03 ALT 23 units/L (7-56) 02/10/19 10:03 Alkaline Phosphatase 70 units/L (35-129) 02/10/19 10:03 Ammonia 34.0 umol/L (25-60) 02/01/19 17:52 Total Creatine Kinase 66 units/L (55-170) 02/01/19 17:52 Total Protein 5.9 g/dL (6.3-8.2) L 02/10/19 10:03 Albumin 3.1 g/dL (3.9-5) L 02/10/19 10:03 Albumin/Globulin Ratio 1.1 % 02/10/19 10:03 Triglycerides 135 mg/dL (2-149) 02/07/19 07:41 Cholesterol 155 mg/dL (50-199) 02/07/19 07:41 LDL Cholesterol Direct 101 mg/dL (50-130) 02/07/19 07:41 HDL Cholesterol 39 mg/dL (40-59) L 02/07/19 07:41 Cholesterol/HDL Ratio 3.97 % 02/07/19 07:41 TSH 1.990 mlU/mL (0.270-4.200) 02/01/19 17:52 Urine Color Yellow (Yellow) 02/01/19 20:45 Urine Turbidity Slightly-cloudy (Clear) 02/01/19 20:45 Urine pH 5.0 (5.0-7.0) 02/01/19 20:45 Ur Specific [place] 1.013 (1.003-1.030) 02/01/19 20:45 Urine Protein >500 mg/dL (Negative) 02/01/19 20:45 Urine Glucose (UA) Neg mg/dL (Negative) 02/01/19 20:45 Urine Ketones Neg mg/dL (Negative) 02/01/19 20:45 Urine Blood Sm (Negative) 02/01/19 20:45 Urine Nitrite Neg (Negative) 02/01/19 20:45 Urine Bilirubin Neg (Negative) 02/01/19 20:45 Urine Urobilinogen < 2.0 mg/dL (<2.0) 02/01/19 20:45 Ur Leukocyte Esterase Neg (Negative) 02/01/19 20:45 Urine WBC (Auto) 2.0 /HPF (0.0-6.0) 02/01/19 20:45 Urine RBC (Auto) 3.0 /HPF (0.0-6.0) 02/01/19 20:45 U Epithel Cells (Auto) 1.0 /HPF (0-13.0) 02/01/19 20:45 Urine Bacteria (Auto) 1+ /HPF (Negative) 02/01/19 20:45 Urine Mucus Few /HPF 02/01/19 20:45 Urine Yeast (Budding) 1+ /HPF 02/01/19 20:45 Urine Eosinophils None seen (None Seen) 02/02/19 02:30 Urine Creatinine 115.8 mg/dL (0.1-20.0) H 02/02/19 02:30 Urine Sodium 99 mmol/L 02/02/19 02:30 Urine Total Protein 198 mg/dL (5-11.8) H 02/02/19 02:30 Salicylates < 0.3 mg/dL (2.8-20.0) L 02/01/19 17:52 Acetaminophen < 5.0 ug/mL (10.0-30.0) L 02/01/19 17:52 Plasma/Serum Alcohol < 0.01 % (0-0.07) 02/01/19 17:52 Hepatitis A IgM Ab Non-reactive (NonReactive) 02/15/19 16:41 Hep Bs Antigen Non-reactive (Negative) 02/15/19 16:41 Hep B Core IgM Ab Non-reactive (NonReactive) 02/15/19 16:41 Hepatitis C Antibody Non-reactive (NonReactive) 02/15/19 16:41 Active Medications - Current Medications Current Medications: Generic Name Dose Route Start Last Admin Trade Name Freq PRN Reason Stop Dose Admin Acetaminophen 650 mg 02/01/19 20:23 02/13/19 09:22 Tylenol PO 650 mg Q4H PRN Administration Pain MILD(1-3)/Fever >100.5/QUAN Amlodipine Besylate 10 mg 02/01/19 21:00 02/16/19 12:53 Amlodipine PO 10 mg QDAY ENOC Administration Aripiprazole 5 mg 02/06/19 13:00 02/16/19 13:02 Aripiprazole PO 5 mg QDAY ENOC Administration Carvedilol 6.25 mg 02/01/19 21:21 02/16/19 21:42 Coreg PO 6.25 mg BID ENOC Administration Clonidine HCl 0.2 mg 02/06/19 11:30 02/16/19 21:43 Catapres PO 0.2 mg Q12HR ENOC Administration Docusate Sodium 100 mg 02/01/19 22:00 02/16/19 21:42 Colace PO 100 mg BID ENOC Administration Furosemide 40 mg 02/14/19 06:00 02/17/19 05:25 Lasix IV 40 mg 0600 ENOC Administration Haloperidol Lactate 5 mg 02/08/19 11:09 02/09/19 21:03 Haldol IM 5 mg Q6H PRN Administration Agitation Heparin Sodium (Porcine) 5,000 unit 02/11/19 22:00 02/16/19 21:43 Heparin SUB-Q 5,000 unit Q12HR ENOC Administration Hydralazine HCl 10 mg 02/01/19 20:12 02/07/19 22:55 Apresoline IV 10 mg Q4HR PRN Administration Blood Pressure Hydralazine HCl 100 mg 02/01/19 21:21 02/16/19 21:43 Apresoline PO 100 mg TID ENOC Administration Levofloxacin/Dextrose 500 mg in 100 mls @ 66.667 mls/hr 02/12/19 10:00 07/31 13:03 Levaquin 500mg/100ml IV 02/20/19 11:29 100 mls/hr Q48H ENOC Administration Protocol Sodium Chloride 100 mls @ 999 mls/hr 02/16/19 17:12 Nacl 0.9% IV LOKESH PRN Hypotension Nicotine 14 mg 02/02/19 10:00 02/16/19 12:55 Habitrol TD 14 mg QDAY ENOC Administration Ondansetron HCl 4 mg 02/01/19 20:23 02/07/19 22:45 Zofran IV 4 mg Q8H PRN Administration Nausea And Vomiting Pantoprazole Sodium 40 mg 02/06/19 11:30 02/16/19 12:56 Protonix PO 40 mg QDAY ENOC Administration Sodium Chloride 10 ml 02/01/19 22:00 02/16/19 21:44 Sodium Chloride Flush Syringe 10 Ml IV 10 ml BID ENOC Administration Sodium Chloride 10 ml 02/01/19 20:23 02/04/19 05:25 Sodium Chloride Flush Syringe 10 Ml IV 10 ml PRN PRN Administration LINE FLUSH Nutrition/Malnutrition Assess - Dietary Evaluation Nutrition/Malnutrition Findings: Nutrition Notes Start: 02/03/19 09:42 Freq: Status: Active Protocol: Document 02/08/19 10:03 LP (Rec: 02/08/19 10:05 LP [id number]) Nutrition Notes Need for Assessment generated from: LOS Initial or Follow up Brief Note Subjective/Other Information Screen for LOS. Pt continues eating well. Consuming at least 75% of meals. Nutrition Intervention Revisit per MD consult or patient Sign Off request:
--- NOTE | 2019-02-17 14:03 | Progress Note ---
Assessment and Plan - Patient Problems (1) Acute kidney injury Current Visit: Yes Status: Acute Plan to address problem: after discussion with pt's and pt about benefits, risks of hemodialysis, and answering all questions, they are agreeing to initiation of hemodialysis. They declined palliative care. vascular surgery consulted for marilyn gaviria. HD to be initiated once access is available. (2) Acute respiratory failure with hypoxia Current Visit: Yes Status: Acute Plan to address problem: Continue current IV diuretic regimen. Strict I's and O's. Avoid standing IV fluids. Continue on high flow nasal cannula per primary team with weaning as tolerated. We'll continue to monitor. (3) Hypertensive chronic kidney disease with stage 1 through stage 4 chronic kidney disease, or unspecified chronic kidney disease Current Visit: Yes Status: Chronic Plan to address problem: Continue to monitor blood pressures under current regimen. (4) Proteinuria Current Visit: Yes Status: Acute Plan to address problem: Non nephrotic range proteinuria. Will continue to monitor. (5) Schizoaffective disorder Current Visit: Yes Status: Chronic Plan to address problem: Management per primary attending Subjective Date of service: 02/17/19 Principal diagnosis: acute kidney injury Interval history: Pt awake, alert, with intermittent paranoidal thoughts, in no acute respiratory distress Objective - Vital Signs Vital signs: Vital Signs - 12hr 02/17/19 02/17/19 02/17/19 03:51 07:55 12:47 Temperature 98.0 F 98.5 F 98.3 F Pulse Rate 68 70 75 Respiratory 18 20 20 Rate Blood Pressure 123/80 140/92 155/81 O2 Sat by Pulse 98 97 99 Oximetry 02/17/19 13:04 Temperature Pulse Rate Respiratory Rate Blood Pressure O2 Sat by Pulse 100 Oximetry - General Appearance General appearance: well-developed, well-nourished, appears stated age EENT: ATNC, PERRL, mucous membranes moist Neck: no JVD Respiratory: Present: Clear to Ascultation Cardiology: regular, S1S2 Gastrointestinal: normoactive bowel sounds Integumentary: no rash, other (no edema ) Neurologic: no focal deficit, strength 5/5, CN 3-12 intact Psychiatric: mood/affect appropriate, cooperative - Lab 02/14/19 05:03 02/16/19 04:43 Most recent lab results ABG pH 7.442 pH Units (7.350-7.450) 02/13/19 08:50 ABG pCO2 27.9 mm Hg 02/13/19 08:50 ABG pO2 58.1 mm Hg (80.0-90.0) L 02/13/19 08:50 ABG HCO3 18.6 mmol/L (20.0-26.0) L 02/13/19 08:50 ABG O2 Saturation 90.9 % (95.0-99.0) L 02/13/19 08:50 Calcium 8.3 mg/dL (8.4-10.2) L 02/16/19 04:43 Phosphorus 2.20 mg/dL (2.5-4.5) L 02/10/19 10:03 Magnesium 1.60 mg/dL (1.7-2.3) L 02/10/19 10:03 Urine Creatinine 115.8 mg/dL (0.1-20.0) H 02/02/19 02:30 Urine Sodium 99 mmol/L 02/02/19 02:30 Urine Total Protein 198 mg/dL (5-11.8) H 02/02/19 02:30 Medications & Allergies - Medications Allergies/Adverse Reactions: Allergies No Known Allergies Allergy (Unverified 04/17/17 13:03) Home Medications: Home Medications Medication Instructions Recorded Confirmed Last Taken Type ARIPiprazole [Abilify] 20 mg PO QDAY 02/03/19 02/03/19 1 Day Ago History ~02/02/19 Losartan/Hydrochlorothiazide 1 each PO QDAY 02/03/19 02/03/19 Unknown History [Losartan-Hctz 100-25 mg Tab] Active Medications: Generic Name Dose Route Start Last Admin Trade Name Freq PRN Reason Stop Dose Admin Acetaminophen 650 mg 02/01/19 20:23 02/13/19 09:22 Tylenol PO 650 mg Q4H PRN Administration Pain MILD(1-3)/Fever >100.5/QUAN Amlodipine Besylate 10 mg 02/01/19 21:00 02/16/19 12:53 Amlodipine PO 10 mg QDAY ENOC Administration Aripiprazole 5 mg 02/06/19 13:00 02/16/19 13:02 Aripiprazole PO 5 mg QDAY ENOC Administration Carvedilol 6.25 mg 02/01/19 21:21 02/16/19 21:42 Coreg PO 6.25 mg BID ENOC Administration Clonidine HCl 0.2 mg 02/06/19 11:30 02/16/19 21:43 Catapres PO 0.2 mg Q12HR ENOC Administration Docusate Sodium 100 mg 02/01/19 22:00 02/16/19 21:42 Colace PO 100 mg BID ENOC Administration Furosemide 40 mg 02/14/19 06:00 02/17/19 05:25 Lasix IV 40 mg 0600 ENOC Administration Haloperidol Lactate 5 mg 02/08/19 11:09 02/09/19 21:03 Haldol IM 5 mg Q6H PRN Administration Agitation Heparin Sodium (Porcine) 5,000 unit 02/11/19 22:00 02/16/19 21:43 Heparin SUB-Q 5,000 unit Q12HR ENOC Administration Hydralazine HCl 10 mg 02/01/19 20:12 02/07/19 22:55 Apresoline IV 10 mg Q4HR PRN Administration Blood Pressure Hydralazine HCl 100 mg 02/01/19 21:21 02/16/19 21:43 Apresoline PO 100 mg TID ENOC Administration Levofloxacin/Dextrose 500 mg in 100 mls @ 66.667 mls/hr 02/12/19 10:00 02/16/19 13:03 Levaquin 500mg/100ml IV 02/20/19 11:29 100 mls/hr Q48H ENOC Administration Protocol Sodium Chloride 100 mls @ 999 mls/hr 02/16/19 17:12 Nacl 0.9% IV LOKESH PRN Hypotension Nicotine 14 mg 02/02/19 10:00 02/16/19 12:55 Habitrol TD 14 mg QDAY ENOC Administration Ondansetron HCl 4 mg 02/01/19 20:23 02/07/19 22:45 Zofran IV 4 mg Q8H PRN Administration Nausea And Vomiting Pantoprazole Sodium 40 mg 02/06/19 11:30 02/16/19 12:56 Protonix PO 40 mg QDAY ENOC Administration Sodium Chloride 10 ml 02/01/19 22:00 02/16/19 21:44 Sodium Chloride Flush Syringe 10 Ml IV 10 ml BID ENOC Administration Sodium Chloride 10 ml 02/01/19 20:23 02/04/19 05:25 Sodium Chloride Flush Syringe 10 Ml IV 10 ml PRN PRN Administration LINE FLUSH
[2019-02-17] MEDS ORDERED: fentaNYL 100 MCG/2 ML INJ ONE (15:16)
[2019-02-17] MEDS ORDERED: MIDAZOLAM 2 MG/2 ML INJ ONE (15:16)
[2019-02-17] MEDS ORDERED: HEPARIN/NS 5000 UNIT/500ML 500 ML IR ONE (15:17)
[2019-02-17] MEDS ORDERED: HEPARIN 10,000 UNITS/10 ML VIAL ONE (15:17)
[2019-02-17] MEDS ORDERED: SODIUM CHLORIDE 0.9% 250ML 250 ML ONE (15:18)
[2019-02-17] MEDS: LIDOCAINE 1%/EPINEPHRINE 1:100,000 VIAL (20 ML) INFILTRATI ONE ×2 (16:03→16:18)
--- NOTE | 2019-02-17 16:52 | Operative Report ---
Operative Report Operative Report: Date of procedure: 02/17/2019 Pre-operative diagnosis: Acute on Chronic Renal Failure Post-operative diagnosis: Same Procedure(s): 1. Ultrasound-Guided Access Right Internal Vein 2. Placement of 23 cm GlidePath Permacath 3. Radiologic Supervision with Interpretation Surgeon: Gordon Del Toro MD Cancer Registry Manager: None Anesthesia: Local EBL: Minimal Counts: Correct Complications: None Condition: Stable Findings: Successful placement of right IJ permacath. Specimen: None Indication: The patient is a 58-year-old male who is in need of hemodialysis and needs access. He is schizophrenic and unable to consent himself. His was given the risks, benefits, and alternative procedures and consented to the procedure. Description of Procedure: The patient was brought to the terrazzo laborer and laid in supine position and his right neck and chest were prepped and draped in normal sterile fashion. Ultr asound was used to identify the right internal jugular vein and the overlying skin and soft tissue was anesthetized with lidocaine. A small stab incision was made and then the access needle was used ultrasound guidance in the right internal jugular vein. An 035 J-wire was advanced to the central venous system under fluoroscopic guidance. The tract was serially dilated up to a 16 [place] peel-away safety sheath and the inner cannula and wire removed. An exit site on the chest was then chosen and the presumed tunnel was anesthetized with lidocaine. A small stab incision was made on the chest and then the permacath was connected to the tunneler and pulled antegrade through the tunnel. The catheter was inserted into the safe sheath and safety sheath was pulled away. The catheter was positioned under fluoroscopy. Once in adequate position both ports were aspirated and flushed and then primed with the appropriate amount heparin. The neck incision was then closed with 4-0 Monocryl in interrupted subcuticular fashion and dressed with Dermabond. The catheters was dressed sterilely. Final fluoroscopy demonstrated the catheter was in excellent position without any evidence of pneumothorax. The patient tolerated the procedure well, all sponge needle and instrument counts were correct, the patient was taken to recovery in stable condition.
[2019-02-17] MEDS: HALOPERIDOL LACTATE 5 MG/1 ML INJ IM PRN (20:32)
[2019-02-18] MEDS: FUROSEMIDE 100 MG/10 ML INJ IV SCH (05:31)
[2019-02-18] MEDS: DOCUSATE SODIUM 100 MG CAP PO SCH ×3 (05:36→22:58)
[2019-02-18 05:52] LABS: Calcium 8.7 mg/dL (8.4-10.2)
[2019-02-18 06:21] LABS: Basophils % (Auto) 0.5 % (0.0-1.8); Eosinophils # (Auto) 0.4 K/mm3 (0.0-0.4); Eosinophils % (Auto) 4.5 % (0.0-4.3); Hematocrit 28.7 % (35.5-45.6); Hemoglobin 9.4 gm/dl (11.8-15.2); Lymphocytes % (Auto) 11.9 % (13.4-35.0); Mean Corpuscular HGB Conc 33 % (32-34); Mean Corpuscular Volume 87 fl (84-94); Monocytes # (Auto) 0.7 K/mm3 (0.0-0.8); Monocytes % (Auto) 8.6 % (0.0-7.3); Platelet Count 311 K/mm3 (140-440); Red Blood Count 3.31 M/mm3 (3.65-5.03); Red Cell Distribution Width 13.9 % (13.2-15.2)
[2019-02-18] MEDS: ARIPiprazole 5 MG TAB PO SCH (09:58)
[2019-02-18] MEDS: amLODIPine 10 MG TAB PO SCH (09:58)
[2019-02-18] MEDS: cloNIDine 0.2 MG TAB PO SCH ×2 (09:58→22:53)
[2019-02-18] MEDS: hydrALAZINE 100 MG TAB PO SCH ×3 (09:58→22:53)
[2019-02-18] MEDS: carvediloL 6.25 MG TAB PO SCH ×2 (09:58→22:58)
[2019-02-18] MEDS: PANTOPRAZOLE 40 MG TAB PO SCH (09:58)
[2019-02-18] MEDS: HEPARIN 5,000 UNIT/1 ML VIAL SUB-Q SCH ×2 (09:59→22:59)
[2019-02-18] MEDS: NICOTINE 14 MG/24 HR PATCH TD SCH (09:59)
--- NOTE | 2019-02-18 10:09 | Progress Note ---
Assessment and Plan Assessment and plan: MIKEL on CKD 4 - vasomotor nephropathy versus progression of underlying chronic medical disease -Cr on admission 7.5 -CT abdomen and pelvis showed Indeterminant renal masses -Avoid nephrotoxic agents -Renally dose all meds -Nephrology initiated hemdialysis on 02/17 Acute respiratory failure with hypoxia Cont. supp Oxygen Pulmonology following Metabolic encephalopathy -CT head negative -Continue Neuro checks -Neurology consulted and ruled out focal seizure, received IV Keppra in the ER -Hold Bacolfen d/t renal function - Possibly underlying psych issues also contributing - Mental health evaluation done hx schizophrenia and bipolar - Abilify 5 mg PO daily, psych following Agitation haldol prn -Hx Hypertension -BP uncontrolled. Continue to adjust medications as needed Hx Right subarachnoid hemorrhage, status post right frontal craniotomy Hx aneurysm, status post clipping -Continue supportive care -Neurology recommended outpatient follow Tobacco abuse -Current every day smoker -Counseled for cessation -Nicotine patch when necessary Thrombocytopenia. - cont to Monitor DVT PPX -SCD's Was awaiting SNF placement prior to starting hemodialysis. Hospitalist Physical - Physical exam Narrative exam: Gen: Not in acute distress, lying in bed,now on high flow Oxygen by NC 15 l/min Fi02 35 HEENT: Normocephalic, atraumatic Neck: supple, no JVD Heart: S1 and S2 reg, no murmurs, rubs or gallop Lungs: Bilateral crackles, no wheeze, Abd: soft, non tender, non distended, normal BS, Ext: No edema, no clubbing, no cyanosis Neuro: Awake, alert, no focal neurological signs - Constitutional Vitals: Temp Pulse Resp BP Pulse Ox 97.8 F 80 18 109/82 98 02/17/19 23:55 02/17/19 23:55 02/17/19 23:55 02/17/19 23:55 02/18/19 02:00 General appearance: Present: no acute distress, well-nourished Results - Labs CBC & Chem 7: 02/18/19 05:00 02/18/19 05:00 Labs: Laboratory Last Values WBC 8.6 K/mm3 (4.5-11.0) 02/18/19 05:00 RBC 3.31 M/mm3 (3.65-5.03) L 02/18/19 05:00 Hgb 9.4 gm/dl (11.8-15.2) L 02/18/19 05:00 Hct 28.7 % (35.5-45.6) L 02/18/19 05:00 MCV 87 fl (84-94) 02/18/19 05:00 MCH 28 pg (28-32) 02/18/19 05:00 MCHC 33 % (32-34) 02/18/19 05:00 RDW 13.9 % (13.2-15.2) 02/18/19 05:00 Plt Count 311 K/mm3 (140-440) 02/18/19 05:00 Lymph % (Auto) 11.9 % (13.4-35.0) L 02/18/19 05:00 [place] % (Auto) 8.6 % (0.0-7.3) H 02/18/19 05:00 Eos % (Auto) 4.5 % (0.0-4.3) H 02/18/19 05:00 Baso % (Auto) 0.5 % (0.0-1.8) 02/18/19 05:00 Lymph # 1.0 K/mm3 (1.2-5.4) L 02/18/19 05:00 [place] # 0.7 K/mm3 (0.0-0.8) 02/18/19 05:00 Eos # 0.4 K/mm3 (0.0-0.4) 02/18/19 05:00 Baso # 0.0 K/mm3 (0.0-0.1) 02/18/19 05:00 Seg Neutrophils % 74.5 % (40.0-70.0) H 02/18/19 05:00 Seg Neutrophils # 6.4 K/mm3 (1.8-7.7) 02/18/19 05:00 POC ABG pH 7.398 (7.35-7.45) 02/10/19 10:16 ABG pH 7.442 pH Units (7.350-7.450) 02/13/19 08:50 POC ABG pCO2 25.4 (35-45) L 02/10/19 10:16 ABG pCO2 27.9 mm Hg 02/13/19 08:50 ABG pO2 58.1 mm Hg (80.0-90.0) L 02/13/19 08:50 POC ABG HCO3 15.6 (22-26 mml/L) 02/10/19 10:16 ABG HCO3 18.6 mmol/L (20.0-26.0) L 02/13/19 08:50 POC ABG Total CO2 16 (23-27mmol/L) 02/10/19 10:16 POC ABG O2 Sat 76 02/10/19 10:16 ABG O2 Saturation 90.9 % (95.0-99.0) L 02/13/19 08:50 ABG O2 Content 11.3 (0.0-44) 02/13/19 08:50 POC ABG Base Excess -9 ((-2) - (+3)mmol/L) 02/10/19 10:16 ABG Base Excess -4.6 mmol/L (-2.0-3.0) L 02/13/19 08:50 ABG Hemoglobin 9.0 gm/dl (14.0-18.0) L 02/13/19 08:50 ABG Carboxyhemoglobin 2.0 % (0.0-5.0) 02/13/19 08:50 ABG Methemoglobin 0.6 % (0.0-1.5) 02/13/19 08:50 Oxyhemoglobin 88.6 % (95.0-99.0) L 02/13/19 08:50 FiO2 40 % 02/13/19 08:50 Sodium 142 mmol/L (137-145) 02/18/19 05:00 Potassium 4.7 mmol/L (3.6-5.0) 02/18/19 05:00 Chloride 103.6 mmol/L (98-107) 02/18/19 05:00 Carbon Dioxide 23 mmol/L (22-30) 02/18/19 05:00 Anion Gap 20 mmol/L 02/18/19 05:00 BUN 74 mg/dL (9-20) H 02/18/19 05:00 Creatinine 8.2 mg/dL (0.8-1.5) H 02/18/19 05:00 Estimated GFR 8 ml/min 02/18/19 05:00 BUN/Creatinine Ratio 9 % 02/18/19 05:00 Glucose 107 mg/dL (75-100) H 02/18/19 05:00 POC Glucose 134 (70-105) H 02/06/19 21:06 Hemoglobin A1c < 4.0 % (4-6) L 02/07/19 07:41 Calcium 8.7 mg/dL (8.4-10.2) 02/18/19 05:00 Phosphorus 2.20 mg/dL (2.5-4.5) L 02/10/19 10:03 Magnesium 1.60 mg/dL (1.7-2.3) L 02/10/19 10:03 Total Bilirubin 0.40 mg/dL (0.1-1.2) 02/10/19 10:03 AST 27 units/L (5-40) 02/10/19 10:03 ALT 23 units/L (7-56) 02/10/19 10:03 Alkaline Phosphatase 70 units/L (35-129) 02/10/19 10:03 Ammonia 34.0 umol/L (25-60) 02/01/19 17:52 Total Creatine Kinase 66 units/L (55-170) 02/01/19 17:52 Total Protein 5.9 g/dL (6.3-8.2) L 02/10/19 10:03 Albumin 3.1 g/dL (3.9-5) L 02/10/19 10:03 Albumin/Globulin Ratio 1.1 % 02/10/19 10:03 Triglycerides 135 mg/dL (2-149) 02/07/19 07:41 Cholesterol 155 mg/dL (50-199) 02/07/19 07:41 LDL Cholesterol Direct 101 mg/dL (50-130) 02/07/19 07:41 HDL Cholesterol 39 mg/dL (40-59) L 02/07/19 07:41 Cholesterol/HDL Ratio 3.97 % 02/07/19 07:41 TSH 1.990 mlU/mL (0.270-4.200) 02/01/19 17:52 Urine Color Yellow (Yellow) 02/01/19 20:45 Urine Turbidity Slightly-cloudy (Clear) 02/01/19 20:45 Urine pH 5.0 (5.0-7.0) 02/01/19 20:45 Ur Specific [place] 1.013 (1.003-1.030) 02/01/19 20:45 Urine Protein >500 mg/dL (Negative) 02/01/19 20:45 Urine Glucose (UA) Neg mg/dL (Negative) 02/01/19 20:45 Urine Ketones Neg mg/dL (Negative) 02/01/19 20:45 Urine Blood Sm (Negative) 02/01/19 20:45 Urine Nitrite Neg (Negative) 02/01/19 20:45 Urine Bilirubin Neg (Negative) 02/01/19 20:45 Urine Urobilinogen < 2.0 mg/dL (<2.0) 02/01/19 20:45 Ur Leukocyte Esterase Neg (Negative) 02/01/19 20:45 Urine WBC (Auto) 2.0 /HPF (0.0-6.0) 02/01/19 20:45 Urine RBC (Auto) 3.0 /HPF (0.0-6.0) 02/01/19 20:45 U Epithel Cells (Auto) 1.0 /HPF (0-13.0) 02/01/19 20:45 Urine Bacteria (Auto) 1+ /HPF (Negative) 02/01/19 20:45 Urine Mucus Few /HPF 02/01/19 20:45 Urine Yeast (Budding) 1+ /HPF 02/01/19 20:45 Urine Eosinophils None seen (None Seen) 02/02/19 02:30 Urine Creatinine 115.8 mg/dL (0.1-20.0) H 02/02/19 02:30 Urine Sodium 99 mmol/L 02/02/19 02:30 Urine Total Protein 198 mg/dL (5-11.8) H 02/02/19 02:30 Salicylates < 0.3 mg/dL (2.8-20.0) L 02/01/19 17:52 Acetaminophen < 5.0 ug/mL (10.0-30.0) L 02/01/19 17:52 Plasma/Serum Alcohol < 0.01 % (0-0.07) 02/01/19 17:52 Hepatitis A IgM Ab Non-reactive (NonReactive) 02/15/19 16:41 Hep Bs Antigen Non-reactive (Negative) 02/15/19 16:41 Hep B Core IgM Ab Non-reactive (NonReactive) 02/15/19 16:41 Hepatitis C Antibody Non-reactive (NonReactive) 02/15/19 16:41 Active Medications - Current Medications Current Medications: Generic Name Dose Route Start Last Admin Trade Name Freq PRN Reason Stop Dose Admin Acetaminophen 650 mg 02/01/19 20:23 02/13/19 09:22 Tylenol PO 650 mg Q4H PRN Administration Pain MILD(1-3)/Fever >100.5/QUAN Amlodipine Besylate 10 mg 02/01/19 21:00 02/18/19 09:58 Amlodipine PO 10 mg QDAY ENOC Administration Aripiprazole 5 mg 02/06/19 13:00 02/18/19 09:58 Aripiprazole PO 5 mg QDAY ENOC Administration Carvedilol 6.25 mg 02/01/19 21:21 02/18/19 09:58 Coreg PO 6.25 mg BID ENOC Administration Clonidine HCl 0.2 mg 02/06/19 11:30 02/18/19 09:58 Catapres PO 0.2 mg Q12HR ENOC Administration Docusate Sodium 100 mg 02/01/19 22:00 02/18/19 09:58 Colace PO 100 mg BID ENOC Administration Furosemide 40 mg 02/14/19 06:00 02/18/19 05:31 Lasix IV 40 mg 0600 ENOC Administration Haloperidol Lactate 5 mg 02/08/19 11:09 02/17/19 20:32 Haldol IM 5 mg Q6H PRN Administration Agitation Heparin Sodium (Porcine) 5,000 unit 02/11/19 22:00 02/18/19 09:59 Heparin SUB-Q 5,000 unit Q12HR ENOC Administration Hydralazine HCl 10 mg 02/01/19 20:12 02/07/19 22:55 Apresoline IV 10 mg Q4HR PRN Administration Blood Pressure Hydralazine HCl 100 mg 02/01/19 21:21 02/18/19 09:58 Apresoline PO 100 mg TID ENOC Administration Levofloxacin/Dextrose 500 mg in 100 mls @ 66.667 mls/hr 02/12/19 10:00 02/18/19 09:59 Levaquin 500mg/100ml IV 02/20/19 11:29 100 mls/hr Q48H ENOC Administration Protocol Sodium Chloride 100 mls @ 999 mls/hr 02/16/19 17:12 Nacl 0.9% IV LOKESH PRN Hypotension Nicotine 14 mg 02/02/19 10:00 02/18/19 09:59 Habitrol TD 14 mg QDAY ENOC Administration Ondansetron HCl 4 mg 02/01/19 20:23 02/07/19 22:45 Zofran IV 4 mg Q8H PRN Administration Nausea And Vomiting Pantoprazole Sodium 40 mg 02/06/19 11:30 02/18/19 09:58 Protonix PO 40 mg QDAY ENOC Administration Sodium Chloride 10 ml 02/01/19 22:00 02/18/19 09:59 Sodium Chloride Flush Syringe 10 Ml IV 10 ml BID ENOC Administration Sodium Chloride 10 ml 02/01/19 20:23 02/18/19 05:35 Sodium Chloride Flush Syringe 10 Ml IV 10 ml PRN PRN Administration LINE FLUSH Nutrition/Malnutrition Assess - Dietary Evaluation Nutrition/Malnutrition Findings: Nutrition Notes Start: 02/03/19 09:42 Freq: Status: Active Protocol: Document 02/08/19 10:03 LP (Rec: 02/08/19 10:05 LP [email or web address]) Nutrition Notes Need for Assessment generated from: LOS Initial or Follow up Brief Note Subjective/Other Information Screen for LOS. Pt continues eating well. Consuming at least 75% of meals. Nutrition Intervention Revisit per MD consult or patient Sign Off request:
[2019-02-18] MEDS ORDERED: SODIUM CHLORIDE 0.9% 100 ML IV PRN (13:37)
--- NOTE | 2019-02-18 14:06 | Progress Note ---
Assessment and Plan - Patient Problems (1) Acute kidney injury Current Visit: Yes Status: Acute Plan to address problem: patient is initiated on HD on 02/17, second HD today for further solute clearance. outpatient HD being arranged by case management (2) Acute respiratory failure with hypoxia Current Visit: Yes Status: Acute Plan to address problem: volume control with HD. (3) Hypertensive chronic kidney disease with stage 1 through stage 4 chronic kidney disease, or unspecified chronic kidney disease Current Visit: Yes Status: Chronic Plan to address problem: Continue to monitor blood pressures under current regimen. (4) Proteinuria Current Visit: Yes Status: Acute Plan to address problem: Non nephrotic range proteinuria. Will continue to monitor. (5) Schizoaffective disorder Current Visit: Yes Status: Chronic Plan to address problem: Management per primary attending Subjective Date of service: 02/18/19 Principal diagnosis: acute kidney injury Interval history: Pt awake, alert, with intermittent paranoidal thoughts, in no acute respiratory distress Objective - Vital Signs Vital signs: Vital Signs - 12hr 02/18/19 02/18/19 02/18/19 04:18 07:58 12:00 Temperature 98.4 F 97.5 F L Pulse Rate 83 85 78 Respiratory 18 18 Rate Blood Pressure 108/77 111/82 O2 Sat by Pulse 100 100 Oximetry - General Appearance General appearance: well-developed, well-nourished, appears stated age EENT: ATNC, PERRL, mucous membranes moist Neck: no JVD Respiratory: Present: Clear to Ascultation Cardiology: regular, S1S2 Gastrointestinal: normoactive bowel sounds Integumentary: no rash, other (no edema ) Neurologic: no focal deficit, disoriented, CN 3-12 intact Psychiatric: mood/affect appropriate, cooperative - Lab 02/18/19 05:00 02/18/19 05:00 Most recent lab results ABG pH 7.442 pH Units (7.350-7.450) 02/13/19 08:50 ABG pCO2 27.9 mm Hg 02/13/19 08:50 ABG pO2 58.1 mm Hg (80.0-90.0) L 02/13/19 08:50 ABG HCO3 18.6 mmol/L (20.0-26.0) L 02/13/19 08:50 ABG O2 Saturation 90.9 % (95.0-99.0) L 02/13/19 08:50 Calcium 8.7 mg/dL (8.4-10.2) 02/18/19 05:00 Phosphorus 2.20 mg/dL (2.5-4.5) L 02/10/19 10:03 Magnesium 1.60 mg/dL (1.7-2.3) L 02/10/19 10:03 Urine Creatinine 115.8 mg/dL (0.1-20.0) H 02/02/19 02:30 Urine Sodium 99 mmol/L 02/02/19 02:30 Urine Total Protein 198 mg/dL (5-11.8) H 02/02/19 02:30 Medications & Allergies - Medications Allergies/Adverse Reactions: Allergies No Known Allergies Allergy (Unverified 04/17/17 13:03) Home Medications: Home Medications Medication Instructions Recorded Confirmed Last Taken Type ARIPiprazole [Abilify] 20 mg PO QDAY 02/03/19 02/03/19 1 Day Ago History ~02/02/19 Losartan/Hydrochlorothiazide 1 each PO QDAY 02/03/19 02/03/19 Unknown History [Losartan-Hctz 100-25 mg Tab] Active Medications: Generic Name Dose Route Start Last Admin Trade Name Freq PRN Reason Stop Dose Admin Acetaminophen 650 mg 02/01/19 20:23 02/13/19 09:22 Tylenol PO 650 mg Q4H PRN Administration Pain MILD(1-3)/Fever >100.5/QUAN Amlodipine Besylate 10 mg 02/01/19 21:00 02/18/19 09:58 Amlodipine PO 10 mg QDAY ENOC Administration Aripiprazole 5 mg 02/06/19 13:00 02/18/19 09:58 Aripiprazole PO 5 mg QDAY ENOC Administration Carvedilol 6.25 mg 02/01/19 21:21 02/18/19 09:58 Coreg PO 6.25 mg BID ENOC Administration Clonidine HCl 0.2 mg 02/06/19 11:30 02/18/19 09:58 Catapres PO 0.2 mg Q12HR ENOC Administration Docusate Sodium 100 mg 02/01/19 22:00 02/18/19 09:58 Colace PO 100 mg BID ENOC Administration Furosemide 40 mg 02/14/19 06:00 02/18/19 05:31 Lasix IV 40 mg 0600 ENOC Administration Haloperidol Lactate 5 mg 02/08/19 11:09 02/17/19 20:32 Haldol IM 5 mg Q6H PRN Administration Agitation Heparin Sodium (Porcine) 5,000 unit 02/11/19 22:00 02/18/19 09:59 Heparin SUB-Q 5,000 unit Q12HR ENOC Administration Hydralazine HCl 10 mg 02/01/19 20:12 02/07/19 22:55 Apresoline IV 10 mg Q4HR PRN Administration Blood Pressure Hydralazine HCl 100 mg 02/01/19 21:21 02/18/19 09:58 Apresoline PO 100 mg TID ENOC Administration Levofloxacin/Dextrose 500 mg in 100 mls @ 66.667 mls/hr 02/12/19 10:00 02/18/19 09:59 Levaquin 500mg/100ml IV 02/20/19 11:29 100 mls/hr Q48H ENOC Administration Protocol Sodium Chloride 100 mls @ 999 mls/hr 02/16/19 17:12 Nacl 0.9% IV LOKESH PRN Hypotension Sodium Chloride 100 mls @ 999 mls/hr 02/18/19 13:37 Nacl 0.9% IV LOKESH PRN Hypotension Nicotine 14 mg 02/02/19 10:00 02/18/19 09:59 Habitrol TD 14 mg QDAY ENOC Administration Ondansetron HCl 4 mg 02/01/19 20:23 02/07/19 22:45 Zofran IV 4 mg Q8H PRN Administration Nausea And Vomiting Pantoprazole Sodium 40 mg 02/06/19 11:30 02/18/19 09:58 Protonix PO 40 mg QDAY ENOC Administration Sodium Chloride 10 ml 02/01/19 22:00 02/18/19 09:59 Sodium Chloride Flush Syringe 10 Ml IV 10 ml BID ENOC Administration Sodium Chloride 10 ml 02/01/19 20:23 02/18/19 05:35 Sodium Chloride Flush Syringe 10 Ml IV 10 ml PRN PRN Administration LINE FLUSH
[2019-02-19] MEDS: DOCUSATE SODIUM 100 MG CAP PO SCH ×2 (09:46→22:25)
[2019-02-19] MEDS: carvediloL 6.25 MG TAB PO SCH ×2 (09:46→22:25)
[2019-02-19] MEDS: cloNIDine 0.2 MG TAB PO SCH ×2 (09:46→22:26)
[2019-02-19] MEDS: hydrALAZINE 100 MG TAB PO SCH ×3 (09:46→20:36)
[2019-02-19] MEDS: amLODIPine 10 MG TAB PO SCH (09:46)
[2019-02-19] MEDS: PANTOPRAZOLE 40 MG TAB PO SCH (09:46)
[2019-02-19] MEDS: NICOTINE 14 MG/24 HR PATCH TD SCH (09:46)
[2019-02-19] MEDS: HEPARIN 5,000 UNIT/1 ML VIAL SUB-Q SCH ×2 (09:46→22:26)
[2019-02-19] MEDS: ARIPiprazole 5 MG TAB PO SCH (09:46)
--- NOTE | 2019-02-19 13:12 | Progress Note ---
Assessment and Plan Assessment and plan: MIKEL on CKD 4 - vasomotor nephropathy versus progression of underlying chronic medical disease -Cr on admission 7.5 -CT abdomen and pelvis showed Indeterminant renal masses -Avoid nephrotoxic agents -Renally dose all meds -Nephrology initiated hemdialysis on 02/17 Acute respiratory failure with hypoxia Cont. supp Oxygen Pulmonology following Metabolic encephalopathy -CT head negative -Continue Neuro checks -Neurology consulted and ruled out focal seizure, received IV Keppra in the ER -Hold Bacolfen d/t renal function - Possibly underlying psych issues also contributing - Mental health evaluation done hx schizophrenia and bipolar - Abilify 5 mg PO daily, psych following Agitation haldol prn -Hx Hypertension -BP uncontrolled. Continue to adjust medications as needed Hx Right subarachnoid hemorrhage, status post right frontal craniotomy Hx aneurysm, status post clipping -Continue supportive care -Neurology recommended outpatient follow Tobacco abuse -Current every day smoker -Counseled for cessation -Nicotine patch when necessary Thrombocytopenia. - cont to Monitor DVT PPX -SCD's Was awaiting SNF placement prior to starting hemodialysis. History Interval history: Patient initially presented with nausea, vomiting, generalized weakness, Altered mental status, Agitation on and off Started on dialysis 02/17 Hospitalist Physical - Physical exam Narrative exam: Gen: Not in acute distress, lying in bed,now on high flow Oxygen by NC 15 l/min Fi02 35 HEENT: Normocephalic, atraumatic Neck: supple, no JVD Heart: S1 and S2 reg, no murmurs, rubs or gallop Lungs: Bilateral crackles, no wheeze, Abd: soft, non tender, non distended, normal BS, Ext: No edema, no clubbing, no cyanosis Neuro: Awake, alert, no focal neurological signs - Constitutional Vitals: Temp Pulse Resp BP Pulse Ox 99.6 F 78 18 115/85 99 02/19/19 07:36 02/19/19 10:00 02/19/19 07:36 02/19/19 07:36 02/19/19 07:36 General appearance: Present: no acute distress, well-nourished Results - Labs CBC & Chem 7: 02/18/19 05:00 02/18/19 05:00 Labs: Laboratory Last Values WBC 8.6 K/mm3 (4.5-11.0) 02/18/19 05:00 RBC 3.31 M/mm3 (3.65-5.03) L 02/18/19 05:00 Hgb 9.4 gm/dl (11.8-15.2) L 02/18/19 05:00 Hct 28.7 % (35.5-45.6) L 02/18/19 05:00 MCV 87 fl (84-94) 02/18/19 05:00 MCH 28 pg (28-32) 02/18/19 05:00 MCHC 33 % (32-34) 02/18/19 05:00 RDW 13.9 % (13.2-15.2) 02/18/19 05:00 Plt Count 311 K/mm3 (140-440) 02/18/19 05:00 Lymph % (Auto) 11.9 % (13.4-35.0) L 02/18/19 05:00 [place] % (Auto) 8.6 % (0.0-7.3) H 02/18/19 05:00 Eos % (Auto) 4.5 % (0.0-4.3) H 02/18/19 05:00 Baso % (Auto) 0.5 % (0.0-1.8) 02/18/19 05:00 Lymph # 1.0 K/mm3 (1.2-5.4) L 02/18/19 05:00 [place] # 0.7 K/mm3 (0.0-0.8) 02/18/19 05:00 Eos # 0.4 K/mm3 (0.0-0.4) 02/18/19 05:00 Baso # 0.0 K/mm3 (0.0-0.1) 02/18/19 05:00 Seg Neutrophils % 74.5 % (40.0-70.0) H 02/18/19 05:00 Seg Neutrophils # 6.4 K/mm3 (1.8-7.7) 02/18/19 05:00 POC ABG pH 7.398 (7.35-7.45) 02/10/19 10:16 ABG pH 7.442 pH Units (7.350-7.450) 02/13/19 08:50 POC ABG pCO2 25.4 (35-45) L 02/10/19 10:16 ABG pCO2 27.9 mm Hg 02/13/19 08:50 ABG pO2 58.1 mm Hg (80.0-90.0) L 02/13/19 08:50 POC ABG HCO3 15.6 (22-26 mml/L) 02/10/19 10:16 ABG HCO3 18.6 mmol/L (20.0-26.0) L 02/13/19 08:50 POC ABG Total CO2 16 (23-27mmol/L) 02/10/19 10:16 POC ABG O2 Sat 76 02/10/19 10:16 ABG O2 Saturation 90.9 % (95.0-99.0) L 02/13/19 08:50 ABG O2 Content 11.3 (0.0-44) 02/13/19 08:50 POC ABG Base Excess -9 ((-2) - (+3)mmol/L) 02/10/19 10:16 ABG Base Excess -4.6 mmol/L (-2.0-3.0) L 02/13/19 08:50 ABG Hemoglobin 9.0 gm/dl (14.0-18.0) L 02/13/19 08:50 ABG Carboxyhemoglobin 2.0 % (0.0-5.0) 02/13/19 08:50 ABG Methemoglobin 0.6 % (0.0-1.5) 02/13/19 08:50 Oxyhemoglobin 88.6 % (95.0-99.0) L 02/13/19 08:50 FiO2 40 % 02/13/19 08:50 Sodium 142 mmol/L (137-145) 02/18/19 05:00 Potassium 4.7 mmol/L (3.6-5.0) 02/18/19 05:00 Chloride 103.6 mmol/L (98-107) 02/18/19 05:00 Carbon Dioxide 23 mmol/L (22-30) 02/18/19 05:00 Anion Gap 20 mmol/L 02/18/19 05:00 BUN 74 mg/dL (9-20) H 02/18/19 05:00 Creatinine 8.2 mg/dL (0.8-1.5) H 02/18/19 05:00 Estimated GFR 8 ml/min 02/18/19 05:00 BUN/Creatinine Ratio 9 % 02/18/19 05:00 Glucose 107 mg/dL (75-100) H 02/18/19 05:00 POC Glucose 134 (70-105) H 02/06/19 21:06 Hemoglobin A1c < 4.0 % (4-6) L 02/07/19 07:41 Calcium 8.7 mg/dL (8.4-10.2) 02/18/19 05:00 Phosphorus 2.20 mg/dL (2.5-4.5) L 02/10/19 10:03 Magnesium 1.60 mg/dL (1.7-2.3) L 02/10/19 10:03 Total Bilirubin 0.40 mg/dL (0.1-1.2) 02/10/19 10:03 AST 27 units/L (5-40) 02/10/19 10:03 ALT 23 units/L (7-56) 02/10/19 10:03 Alkaline Phosphatase 70 units/L (35-129) 02/10/19 10:03 Ammonia 34.0 umol/L (25-60) 02/01/19 17:52 Total Creatine Kinase 66 units/L (55-170) 02/01/19 17:52 Total Protein 5.9 g/dL (6.3-8.2) L 02/10/19 10:03 Albumin 3.1 g/dL (3.9-5) L 02/10/19 10:03 Albumin/Globulin Ratio 1.1 % 02/10/19 10:03 Triglycerides 135 mg/dL (2-149) 02/07/19 07:41 Cholesterol 155 mg/dL (50-199) 02/07/19 07:41 LDL Cholesterol Direct 101 mg/dL (50-130) 02/07/19 07:41 HDL Cholesterol 39 mg/dL (40-59) L 02/07/19 07:41 Cholesterol/HDL Ratio 3.97 % 02/07/19 07:41 TSH 1.990 mlU/mL (0.270-4.200) 02/01/19 17:52 Urine Color Yellow (Yellow) 02/01/19 20:45 Urine Turbidity Slightly-cloudy (Clear) 02/01/19 20:45 Urine pH 5.0 (5.0-7.0) 02/01/19 20:45 Ur Specific [place] 1.013 (1.003-1.030) 02/01/19 20:45 Urine Protein >500 mg/dL (Negative) 02/01/19 20:45 Urine Glucose (UA) Neg mg/dL (Negative) 02/01/19 20:45 Urine Ketones Neg mg/dL (Negative) 02/01/19 20:45 Urine Blood Sm (Negative) 02/01/19 20:45 Urine Nitrite Neg (Negative) 02/01/19 20:45 Urine Bilirubin Neg (Negative) 02/01/19 20:45 Urine Urobilinogen < 2.0 mg/dL (<2.0) 02/01/19 20:45 Ur Leukocyte Esterase Neg (Negative) 02/01/19 20:45 Urine WBC (Auto) 2.0 /HPF (0.0-6.0) 02/01/19 20:45 Urine RBC (Auto) 3.0 /HPF (0.0-6.0) 02/01/19 20:45 U Epithel Cells (Auto) 1.0 /HPF (0-13.0) 02/01/19 20:45 Urine Bacteria (Auto) 1+ /HPF (Negative) 02/01/19 20:45 Urine Mucus Few /HPF 02/01/19 20:45 Urine Yeast (Budding) 1+ /HPF 02/01/19 20:45 Urine Eosinophils None seen (None Seen) 02/02/19 02:30 Urine Creatinine 115.8 mg/dL (0.1-20.0) H 02/02/19 02:30 Urine Sodium 99 mmol/L 02/02/19 02:30 Urine Total Protein 198 mg/dL (5-11.8) H 02/02/19 02:30 Salicylates < 0.3 mg/dL (2.8-20.0) L 02/01/19 17:52 Acetaminophen < 5.0 ug/mL (10.0-30.0) L 02/01/19 17:52 Plasma/Serum Alcohol < 0.01 % (0-0.07) 02/01/19 17:52 Hepatitis A IgM Ab Non-reactive (NonReactive) 02/15/19 16:41 Hep Bs Antigen Non-reactive (Negative) 02/15/19 16:41 Hep B Core IgM Ab Non-reactive (NonReactive) 02/15/19 16:41 Hepatitis C Antibody Non-reactive (NonReactive) 02/15/19 16:41 Active Medications - Current Medications Current Medications: Generic Name Dose Route Start Last Admin Trade Name Freq PRN Reason Stop Dose Admin Acetaminophen 650 mg 02/01/19 20:23 02/13/19 09:22 Tylenol PO 650 mg Q4H PRN Administration Pain MILD(1-3)/Fever >100.5/QUAN Amlodipine Besylate 10 mg 02/01/19 21:00 02/19/19 09:46 Amlodipine PO 10 mg QDAY ENOC Administration Aripiprazole 5 mg 02/06/19 13:00 02/19/19 09:46 Aripiprazole PO 5 mg QDAY ENOC Administration Carvedilol 6.25 mg 02/01/19 21:21 02/19/19 09:46 Coreg PO 6.25 mg BID ENOC Administration Clonidine HCl 0.2 mg 02/06/19 11:30 02/19/19 09:46 Catapres PO 0.2 mg Q12HR ENOC Administration Docusate Sodium 100 mg 02/01/19 22:00 02/19/19 09:46 Colace PO 100 mg BID ENOC Administration Haloperidol Lactate 5 mg 02/08/19 11:09 02/17/19 20:32 Haldol IM 5 mg Q6H PRN Administration Agitation Heparin Sodium (Porcine) 5,000 unit 02/11/19 22:00 02/19/19 09:46 Heparin SUB-Q 5,000 unit Q12HR ENOC Administration Hydralazine HCl 10 mg 02/01/19 20:12 02/07/19 22:55 Apresoline IV 10 mg Q4HR PRN Administration Blood Pressure Hydralazine HCl 100 mg 02/01/19 21:21 02/19/19 09:46 Apresoline PO 100 mg TID ENOC Administration Levofloxacin/Dextrose 500 mg in 100 mls @ 66.667 mls/hr 02/12/19 10:00 02/18/19 09:59 Levaquin 500mg/100ml IV 02/20/19 11:29 100 mls/hr Q48H ENOC Administration Protocol Sodium Chloride 100 mls @ 999 mls/hr 02/16/19 17:12 Nacl 0.9% IV LOKESH PRN Hypotension Sodium Chloride 100 mls @ 999 mls/hr 02/18/19 13:37 Nacl 0.9% IV LOKESH PRN Hypotension Nicotine 14 mg 02/02/19 10:00 02/19/19 09:46 Habitrol TD 14 mg QDAY ENOC Administration Ondansetron HCl 4 mg 02/01/19 20:23 02/07/19 22:45 Zofran IV 4 mg Q8H PRN Administration Nausea And Vomiting Pantoprazole Sodium 40 mg 02/06/19 11:30 02/19/19 09:46 Protonix PO 40 mg QDAY ENOC Administration Sodium Chloride 10 ml 02/01/19 22:00 02/19/19 09:47 Sodium Chloride Flush Syringe 10 Ml IV 10 ml BID ENOC Administration Sodium Chloride 10 ml 02/01/19 20:23 02/18/19 05:35 Sodium Chloride Flush Syringe 10 Ml IV 10 ml PRN PRN Administration LINE FLUSH Nutrition/Malnutrition Assess - Dietary Evaluation Nutrition/Malnutrition Findings: Nutrition Notes Start: 02/03/19 09:42 Freq: Status: Active Protocol: Document 02/08/19 10:03 LP (Rec: 02/08/19 10:05 LP [id number]) Nutrition Notes Need for Assessment generated from: LOS Initial or Follow up Brief Note Subjective/Other Information Screen for LOS. Pt continues eating well. Consuming at least 75% of meals. Nutrition Intervention Revisit per MD consult or patient Sign Off request:
--- NOTE | 2019-02-19 16:39 | Progress Note ---
Assessment and Plan - Patient Problems (1) Acute kidney injury Current Visit: Yes Status: Acute Plan to address problem: pt was started on HD on 02/17/19 via permcath, cont HD on TTS schedule. outpatient HD being arranged by case management (2) Acute respiratory failure with hypoxia Current Visit: Yes Status: Acute Plan to address problem: volume control with HD. (3) Hypertensive chronic kidney disease with stage 1 through stage 4 chronic kidney disease, or unspecified chronic kidney disease Current Visit: Yes Status: Chronic Plan to address problem: Continue to monitor blood pressures under current regimen. (4) Proteinuria Current Visit: Yes Status: Acute Plan to address problem: Non nephrotic range proteinuria. Will continue to monitor. (5) Schizoaffective disorder Current Visit: Yes Status: Chronic Plan to address problem: Management per primary attending Subjective Date of service: 02/19/19 Principal diagnosis: acute kidney injury Interval history: Pt awake, alert, in no acute respiratory distress, denies fever, chills, n/v/d, CP, SOB. Objective - Vital Signs Vital signs: Vital Signs - 12hr 02/19/19 02/19/19 02/19/19 07:36 10:00 12:57 Temperature 99.6 F 98.3 F Pulse Rate 84 78 Respiratory 18 18 Rate Blood Pressure 115/85 92/64 O2 Sat by Pulse 99 Oximetry - General Appearance General appearance: well-developed, well-nourished, appears stated age EENT: ATNC, PERRL, mucous membranes moist Neck: no JVD Respiratory: Present: Clear to Ascultation Cardiology: regular, S1S2 Gastrointestinal: normoactive bowel sounds Integumentary: no rash Neurologic: no focal deficit, alert and oriented x3, strength 5/5, CN 3-12 intact Psychiatric: mood/affect appropriate, cooperative - Lab 02/18/19 05:00 02/18/19 05:00 Most recent lab results ABG pH 7.442 pH Units (7.350-7.450) 02/13/19 08:50 ABG pCO2 27.9 mm Hg 02/13/19 08:50 ABG pO2 58.1 mm Hg (80.0-90.0) L 02/13/19 08:50 ABG HCO3 18.6 mmol/L (20.0-26.0) L 02/13/19 08:50 ABG O2 Saturation 90.9 % (95.0-99.0) L 02/13/19 08:50 Calcium 8.7 mg/dL (8.4-10.2) 02/18/19 05:00 Phosphorus 2.20 mg/dL (2.5-4.5) L 02/10/19 10:03 Magnesium 1.60 mg/dL (1.7-2.3) L 02/10/19 10:03 Urine Creatinine 115.8 mg/dL (0.1-20.0) H 02/02/19 02:30 Urine Sodium 99 mmol/L 02/02/19 02:30 Urine Total Protein 198 mg/dL (5-11.8) H 02/02/19 02:30 Medications & Allergies - Medications Allergies/Adverse Reactions: Allergies No Known Allergies Allergy (Unverified 04/17/17 13:03) Home Medications: Home Medications Medication Instructions Recorded Confirmed Last Taken Type ARIPiprazole [Abilify] 20 mg PO QDAY 02/03/19 02/03/19 1 Day Ago History ~02/02/19 Losartan/Hydrochlorothiazide 1 each PO QDAY 02/03/19 02/03/19 Unknown History [Losartan-Hctz 100-25 mg Tab] Active Medications: Generic Name Dose Route Start Last Admin Trade Name Freq PRN Reason Stop Dose Admin Acetaminophen 650 mg 02/01/19 20:23 02/13/19 09:22 Tylenol PO 650 mg Q4H PRN Administration Pain MILD(1-3)/Fever >100.5/QUAN Amlodipine Besylate 10 mg 02/01/19 21:00 02/19/19 09:46 Amlodipine PO 10 mg QDAY ENOC Administration Aripiprazole 5 mg 02/06/19 13:00 02/19/19 09:46 Aripiprazole PO 5 mg QDAY ENOC Administration Carvedilol 6.25 mg 02/01/19 21:21 02/19/19 09:46 Coreg PO 6.25 mg BID ENOC Administration Clonidine HCl 0.2 mg 02/06/19 11:30 02/19/19 09:46 Catapres PO 0.2 mg Q12HR ENOC Administration Docusate Sodium 100 mg 02/01/19 22:00 02/19/19 09:46 Colace PO 100 mg BID ENOC Administration Haloperidol Lactate 5 mg 02/08/19 11:09 02/17/19 20:32 Haldol IM 5 mg Q6H PRN Administration Agitation Heparin Sodium (Porcine) 5,000 unit 02/11/19 22:00 02/19/19 09:46 Heparin SUB-Q 5,000 unit Q12HR ENOC Administration Hydralazine HCl 10 mg 02/01/19 20:12 02/07/19 22:55 Apresoline IV 10 mg Q4HR PRN Administration Blood Pressure Hydralazine HCl 100 mg 02/01/19 21:21 02/19/19 14:05 Apresoline PO Not Given TID ENOC Levofloxacin/Dextrose 500 mg in 100 mls @ 66.667 mls/hr 02/12/19 10:00 02/18/19 09:59 Levaquin 500mg/100ml IV 02/20/19 11:29 100 mls/hr Q48H ENOC Administration Protocol Sodium Chloride 100 mls @ 999 mls/hr 02/16/19 17:12 Nacl 0.9% IV LOKESH PRN Hypotension Sodium Chloride 100 mls @ 999 mls/hr 02/18/19 13:37 Nacl 0.9% IV LOKESH PRN Hypotension Nicotine 14 mg 02/02/19 10:00 02/19/19 09:46 Habitrol TD 14 mg QDAY ENOC Administration Ondansetron HCl 4 mg 02/01/19 20:23 02/07/19 22:45 Zofran IV 4 mg Q8H PRN Administration Nausea And Vomiting Pantoprazole Sodium 40 mg 02/06/19 11:30 02/19/19 09:46 Protonix PO 40 mg QDAY ENOC Administration Sodium Chloride 10 ml 02/01/19 22:00 02/19/19 09:47 Sodium Chloride Flush Syringe 10 Ml IV 10 ml BID ENOC Administration Sodium Chloride 10 ml 02/01/19 20:23 02/18/19 05:35 Sodium Chloride Flush Syringe 10 Ml IV 10 ml PRN PRN Administration LINE FLUSH
[2019-02-20 07:03] LABS: Calcium 8.9 mg/dL (8.4-10.2)
[2019-02-20] MEDS: hydrALAZINE 100 MG TAB PO SCH ×3 (08:00→20:53)
[2019-02-20] MEDS: cloNIDine 0.2 MG TAB PO SCH ×2 (11:00→21:55)
[2019-02-20] MEDS: amLODIPine 10 MG TAB PO SCH (11:00)
[2019-02-20] MEDS: ARIPiprazole 5 MG TAB PO SCH (11:01)
[2019-02-20] MEDS: HEPARIN 5,000 UNIT/1 ML VIAL SUB-Q SCH ×2 (11:01→21:56)
[2019-02-20] MEDS: NICOTINE 14 MG/24 HR PATCH TD SCH (11:01)
[2019-02-20] MEDS: PANTOPRAZOLE 40 MG TAB PO SCH (11:01)
[2019-02-20] MEDS: carvediloL 6.25 MG TAB PO SCH ×2 (11:02→21:55)
[2019-02-20] MEDS: DOCUSATE SODIUM 100 MG CAP PO SCH ×2 (11:06→21:55)
--- NOTE | 2019-02-20 13:42 | Progress Note ---
Assessment and Plan - Patient Problems (1) Renal failure Current Visit: Yes Status: Chronic Qualifiers: Renal failure chronicity: unspecified chronicity Qualified Code(s): N19 - Unspecified kidney failure Plan to address problem: Patient has significant renal failure. Discussed with primary attending, and he has been started on hemodialysis at this time. He has a functioning right IJ PermCath. We will maintain him on a TTS inpatient hemodialysis schedule. Case management to work with outpatient dialysis placement. (2) Acute respiratory failure with hypoxia Current Visit: Yes Status: Acute Plan to address problem: Overall respiratory status has stabilized. We'll continue to challenge with ultrafiltration during hemodialysis.. (3) Hypertensive chronic kidney disease with stage 1 through stage 4 chronic kidney disease, or unspecified chronic kidney disease Current Visit: Yes Status: Chronic Plan to address problem: Continue to monitor blood pressures under current regimen. (4) Proteinuria Current Visit: Yes Status: Acute Plan to address problem: Non nephrotic range proteinuria. Will continue to monitor. (5) Schizoaffective disorder Current Visit: Yes Status: Chronic Plan to address problem: Management per primary attending Subjective Date of service: 02/20/19 Principal diagnosis: acute kidney injury Interval history: No acute changes overnight. Patient now has been started on hemodialysis. He has a right IJ permacath. Objective - Vital Signs Vital signs: Vital Signs - 12hr 02/20/19 02/20/19 02/20/19 04:34 04:41 08:28 Temperature 98.0 F Pulse Rate 72 73 73 Respiratory 18 Rate Blood Pressure 110/75 91/57 O2 Sat by Pulse 97 100 Oximetry 02/20/19 10:00 Temperature Pulse Rate 81 Respiratory 20 Rate Blood Pressure O2 Sat by Pulse 95 Oximetry - General Appearance General appearance: well-developed, well-nourished, appears stated age EENT: ATNC, PERRL Neck: no JVD, no thyromegaly Respiratory: Present: Clear to Ascultation, Normal Exam Cardiology: regular, S1S2 Gastrointestinal: normal, normoactive bowel sounds Integumentary: no rash Neurologic: confused Musculoskeletal: deferred Psychiatric: cooperative - Lab 02/18/19 05:00 02/20/19 06:12 Most recent lab results ABG pH 7.442 pH Units (7.350-7.450) 02/13/19 08:50 ABG pCO2 27.9 mm Hg 02/13/19 08:50 ABG pO2 58.1 mm Hg (80.0-90.0) L 02/13/19 08:50 ABG HCO3 18.6 mmol/L (20.0-26.0) L 02/13/19 08:50 ABG O2 Saturation 90.9 % (95.0-99.0) L 02/13/19 08:50 Calcium 8.9 mg/dL (8.4-10.2) 02/20/19 06:12 Phosphorus 2.20 mg/dL (2.5-4.5) L 02/10/19 10:03 Magnesium 1.60 mg/dL (1.7-2.3) L 02/10/19 10:03 Urine Creatinine 115.8 mg/dL (0.1-20.0) H 02/02/19 02:30 Urine Sodium 99 mmol/L 02/02/19 02:30 Urine Total Protein 198 mg/dL (5-11.8) H 02/02/19 02:30 - Allied health notes Allied health notes reviewed: nursing Medications & Allergies - Medications Allergies/Adverse Reactions: Allergies No Known Allergies Allergy (Unverified 04/17/17 13:03) Home Medications: Home Medications Medication Instructions Recorded Confirmed Last Taken Type ARIPiprazole [Abilify] 20 mg PO QDAY 02/03/19 02/03/19 1 Day Ago History ~02/02/19 Losartan/Hydrochlorothiazide 1 each PO QDAY 02/03/19 02/03/19 Unknown History [Losartan-Hctz 100-25 mg Tab] Active Medications: Generic Name Dose Route Start Last Admin Trade Name Claudia PRN Reason Stop Dose Admin Acetaminophen 650 mg 02/01/19 20:23 02/13/19 09:22 Tylenol PO 650 mg Q4H PRN Administration Pain MILD(1-3)/Fever >100.5/QUAN Amlodipine Besylate 10 mg 02/01/19 21:00 02/20/19 11:00 Amlodipine PO Not Given QDAY ENOC Aripiprazole 5 mg 02/06/19 13:00 02/20/19 11:01 Aripiprazole PO 5 mg QDAY ENOC Administration Carvedilol 6.25 mg 02/01/19 21:21 02/20/19 11:02 Coreg PO Not Given BID ENOC Clonidine HCl 0.2 mg 02/06/19 11:30 02/20/19 11:00 Catapres PO Not Given Q12HR ENOC Docusate Sodium 100 mg 02/01/19 22:00 02/20/19 11:06 Colace PO 100 mg BID ENCO Administration Haloperidol Lactate 5 mg 02/08/19 11:09 02/17/19 20:32 Haldol IM 5 mg Q6H PRN Administration Agitation Heparin Sodium (Porcine) 5,000 unit 02/11/19 22:00 02/20/19 11:01 Heparin SUB-Q 5,000 unit Q12HR ENOC Administration Hydralazine HCl 10 mg 02/01/19 20:12 02/07/19 22:55 Apresoline IV 10 mg Q4HR PRN Administration Blood Pressure Hydralazine HCl 100 mg 02/01/19 21:21 02/20/19 08:00 Apresoline PO Not Given TID ENOC Sodium Chloride 100 mls @ 999 mls/hr 02/18/19 13:37 Nacl 0.9% IV LOKESH PRN Hypotension Nicotine 14 mg 02/02/19 10:00 02/20/19 11:01 Habitrol TD 14 mg QDAY ENOC Administration Ondansetron HCl 4 mg 02/01/19 20:23 02/07/19 22:45 Zofran IV 4 mg Q8H PRN Administration Nausea And Vomiting Pantoprazole Sodium 40 mg 02/06/19 11:30 02/20/19 11:01 Protonix PO 40 mg QDAY ENOC Administration Sodium Chloride 10 ml 02/01/19 22:00 02/20/19 11:07 Sodium Chloride Flush Syringe 10 Ml IV 10 ml BID ENOC Administration Sodium Chloride 10 ml 02/01/19 20:23 02/18/19 05:35 Sodium Chloride Flush Syringe 10 Ml IV 10 ml PRN PRN Administration LINE FLUSH
--- NOTE | 2019-02-20 16:03 | Progress Note ---
Assessment and Plan Assessment and plan: MIKEL on CKD 4 - vasomotor nephropathy versus progression of underlying chronic medical disease -Cr on admission 7.5 -CT abdomen and pelvis showed Indeterminant renal masses -Avoid nephrotoxic agents -Renally dose all meds -Nephrology initiated hemdialysis on 02/17 Acute respiratory failure with hypoxia Cont. supp Oxygen Pulmonology following Metabolic encephalopathy -CT head negative -Continue Neuro checks -Neurology consulted and ruled out focal seizure, received IV Keppra in the ER -Hold Bacolfen d/t renal function - Possibly underlying psych issues also contributing - Mental health evaluation done hx schizophrenia and bipolar - Abilify 5 mg PO daily, psych following Agitation haldol prn -Hx Hypertension -BP uncontrolled. Continue to adjust medications as needed Hx Right subarachnoid hemorrhage, status post right frontal craniotomy Hx aneurysm, status post clipping -Continue supportive care -Neurology recommended outpatient follow Tobacco abuse -Current every day smoker -Counseled for cessation -Nicotine patch when necessary Thrombocytopenia. - cont to Monitor DVT PPX -SCD's Was awaiting SNF placement prior to starting hemodialysis. History Interval history: Patient initially presented with nausea, vomiting, generalized weakness, Altered mental status, Agitation on and off Started on dialysis 02/17 Hospitalist Physical - Physical exam Narrative exam: Gen: Not in acute distress, lying in bed,now on high flow Oxygen by NC 15 l/min Fi02 35 HEENT: Normocephalic, atraumatic Neck: supple, no JVD Heart: S1 and S2 reg, no murmurs, rubs or gallop Lungs: Bilateral crackles, no wheeze, Abd: soft, non tender, non distended, normal BS, Ext: No edema, no clubbing, no cyanosis Neuro: Awake, alert, no focal neurological signs - Constitutional Vitals: Temp Pulse Resp BP Pulse Ox 98.0 F 81 20 91/57 95 02/20/19 04:41 02/20/19 10:00 02/20/19 10:00 02/20/19 08:28 02/20/19 10:00 General appearance: Present: no acute distress, well-nourished Results - Labs CBC & Chem 7: 02/18/19 05:00 02/20/19 06:12 Labs: Laboratory Last Values WBC 8.6 K/mm3 (4.5-11.0) 02/18/19 05:00 RBC 3.31 M/mm3 (3.65-5.03) L 02/18/19 05:00 Hgb 9.4 gm/dl (11.8-15.2) L 02/18/19 05:00 Hct 28.7 % (35.5-45.6) L 02/18/19 05:00 MCV 87 fl (84-94) 02/18/19 05:00 MCH 28 pg (28-32) 02/18/19 05:00 MCHC 33 % (32-34) 02/18/19 05:00 RDW 13.9 % (13.2-15.2) 02/18/19 05:00 Plt Count 311 K/mm3 (140-440) 02/18/19 05:00 Lymph % (Auto) 11.9 % (13.4-35.0) L 02/18/19 05:00 [place] % (Auto) 8.6 % (0.0-7.3) H 02/18/19 05:00 Eos % (Auto) 4.5 % (0.0-4.3) H 02/18/19 05:00 Baso % (Auto) 0.5 % (0.0-1.8) 02/18/19 05:00 Lymph # 1.0 K/mm3 (1.2-5.4) L 02/18/19 05:00 [place] # 0.7 K/mm3 (0.0-0.8) 02/18/19 05:00 Eos # 0.4 K/mm3 (0.0-0.4) 02/18/19 05:00 Baso # 0.0 K/mm3 (0.0-0.1) 02/18/19 05:00 Seg Neutrophils % 74.5 % (40.0-70.0) H 02/18/19 05:00 Seg Neutrophils # 6.4 K/mm3 (1.8-7.7) 02/18/19 05:00 POC ABG pH 7.398 (7.35-7.45) 02/10/19 10:16 ABG pH 7.442 pH Units (7.350-7.450) 02/13/19 08:50 POC ABG pCO2 25.4 (35-45) L 02/10/19 10:16 ABG pCO2 27.9 mm Hg 02/13/19 08:50 ABG pO2 58.1 mm Hg (80.0-90.0) L 02/13/19 08:50 POC ABG HCO3 15.6 (22-26 mml/L) 02/10/19 10:16 ABG HCO3 18.6 mmol/L (20.0-26.0) L 02/13/19 08:50 POC ABG Total CO2 16 (23-27mmol/L) 02/10/19 10:16 POC ABG O2 Sat 76 02/10/19 10:16 ABG O2 Saturation 90.9 % (95.0-99.0) L 02/13/19 08:50 ABG O2 Content 11.3 (0.0-44) 02/13/19 08:50 POC ABG Base Excess -9 ((-2) - (+3)mmol/L) 02/10/19 10:16 ABG Base Excess -4.6 mmol/L (-2.0-3.0) L 02/13/19 08:50 ABG Hemoglobin 9.0 gm/dl (14.0-18.0) L 02/13/19 08:50 ABG Carboxyhemoglobin 2.0 % (0.0-5.0) 02/13/19 08:50 ABG Methemoglobin 0.6 % (0.0-1.5) 02/13/19 08:50 Oxyhemoglobin 88.6 % (95.0-99.0) L 02/13/19 08:50 FiO2 40 % 02/13/19 08:50 Sodium 139 mmol/L (137-145) 02/20/19 06:12 Potassium 4.3 mmol/L (3.6-5.0) 02/20/19 06:12 Chloride 95.8 mmol/L (98-107) L 02/20/19 06:12 Carbon Dioxide 22 mmol/L (22-30) 02/20/19 06:12 Anion Gap 26 mmol/L 02/20/19 06:12 BUN 84 mg/dL (9-20) H 02/20/19 06:12 Creatinine 9.5 mg/dL (0.8-1.5) H 02/20/19 06:12 Estimated GFR 7 ml/min 02/20/19 06:12 BUN/Creatinine Ratio 9 % 02/20/19 06:12 Glucose 99 mg/dL (75-100) 02/20/19 06:12 POC Glucose 134 (70-105) H 02/06/19 21:06 Hemoglobin A1c < 4.0 % (4-6) L 02/07/19 07:41 Calcium 8.9 mg/dL (8.4-10.2) 02/20/19 06:12 Phosphorus 2.20 mg/dL (2.5-4.5) L 02/10/19 10:03 Magnesium 1.60 mg/dL (1.7-2.3) L 02/10/19 10:03 Total Bilirubin 0.40 mg/dL (0.1-1.2) 02/10/19 10:03 AST 27 units/L (5-40) 02/10/19 10:03 ALT 23 units/L (7-56) 02/10/19 10:03 Alkaline Phosphatase 70 units/L (35-129) 02/10/19 10:03 Ammonia 34.0 umol/L (25-60) 02/01/19 17:52 Total Creatine Kinase 66 units/L (55-170) 02/01/19 17:52 Total Protein 5.9 g/dL (6.3-8.2) L 02/10/19 10:03 Albumin 3.1 g/dL (3.9-5) L 02/10/19 10:03 Albumin/Globulin Ratio 1.1 % 02/10/19 10:03 Triglycerides 135 mg/dL (2-149) 02/07/19 07:41 Cholesterol 155 mg/dL (50-199) 02/07/19 07:41 LDL Cholesterol Direct 101 mg/dL (50-130) 02/07/19 07:41 HDL Cholesterol 39 mg/dL (40-59) L 02/07/19 07:41 Cholesterol/HDL Ratio 3.97 % 02/07/19 07:41 TSH 1.990 mlU/mL (0.270-4.200) 02/01/19 17:52 Urine Color Yellow (Yellow) 02/01/19 20:45 Urine Turbidity Slightly-cloudy (Clear) 02/01/19 20:45 Urine pH 5.0 (5.0-7.0) 02/01/19 20:45 Ur Specific [place] 1.013 (1.003-1.030) 02/01/19 20:45 Urine Protein >500 mg/dL (Negative) 02/01/19 20:45 Urine Glucose (UA) Neg mg/dL (Negative) 02/01/19 20:45 Urine Ketones Neg mg/dL (Negative) 02/01/19 20:45 Urine Blood Sm (Negative) 02/01/19 20:45 Urine Nitrite Neg (Negative) 02/01/19 20:45 Urine Bilirubin Neg (Negative) 02/01/19 20:45 Urine Urobilinogen < 2.0 mg/dL (<2.0) 02/01/19 20:45 Ur Leukocyte Esterase Neg (Negative) 02/01/19 20:45 Urine WBC (Auto) 2.0 /HPF (0.0-6.0) 02/01/19 20:45 Urine RBC (Auto) 3.0 /HPF (0.0-6.0) 02/01/19 20:45 U Epithel Cells (Auto) 1.0 /HPF (0-13.0) 02/01/19 20:45 Urine Bacteria (Auto) 1+ /HPF (Negative) 02/01/19 20:45 Urine Mucus Few /HPF 02/01/19 20:45 Urine Yeast (Budding) 1+ /HPF 02/01/19 20:45 Urine Eosinophils None seen (None Seen) 02/02/19 02:30 Urine Creatinine 115.8 mg/dL (0.1-20.0) H 02/02/19 02:30 Urine Sodium 99 mmol/L 02/02/19 02:30 Urine Total Protein 198 mg/dL (5-11.8) H 02/02/19 02:30 Salicylates < 0.3 mg/dL (2.8-20.0) L 02/01/19 17:52 Acetaminophen < 5.0 ug/mL (10.0-30.0) L 02/01/19 17:52 Plasma/Serum Alcohol < 0.01 % (0-0.07) 02/01/19 17:52 Hepatitis A IgM Ab Non-reactive (NonReactive) 02/15/19 16:41 Hep Bs Antigen Non-reactive (Negative) 02/15/19 16:41 Hep B Core IgM Ab Non-reactive (NonReactive) 02/15/19 16:41 Hepatitis C Antibody Non-reactive (NonReactive) 02/15/19 16:41 Active Medications - Current Medications Current Medications: Generic Name Dose Route Start Last Admin Trade Name Freq PRN Reason Stop Dose Admin Acetaminophen 650 mg 02/01/19 20:23 02/13/19 09:22 Tylenol PO 650 mg Q4H PRN Administration Pain MILD(1-3)/Fever >100.5/QUAN Amlodipine Besylate 10 mg 02/01/19 21:00 02/20/19 11:00 Amlodipine PO Not Given QDAY ENOC Aripiprazole 5 mg 02/06/19 13:00 02/20/19 11:01 Aripiprazole PO 5 mg QDAY ENOC Administration Carvedilol 6.25 mg 02/01/19 21:21 02/20/19 11:02 Coreg PO Not Given BID ENOC Clonidine HCl 0.2 mg 02/06/19 11:30 02/20/19 11:00 Catapres PO Not Given Q12HR [facility] Docusate Sodium 100 mg 02/01/19 22:00 02/20/19 11:06 Colace PO 100 mg BID ENOC Administration Haloperidol Lactate 5 mg 02/08/19 11:09 02/17/19 20:32 Haldol IM 5 mg Q6H PRN Administration Agitation Heparin Sodium (Porcine) 5,000 unit 02/11/19 22:00 02/20/19 11:01 Heparin SUB-Q 5,000 unit Q12HR ENOC Administration Hydralazine HCl 10 mg 02/01/19 20:12 02/07/19 22:55 Apresoline IV 10 mg Q4HR PRN Administration Blood Pressure Hydralazine HCl 100 mg 02/01/19 21:21 02/20/19 08:00 Apresoline PO Not Given TID ENOC Sodium Chloride 100 mls @ 999 mls/hr 02/18/19 13:37 Nacl 0.9% IV LOKESH PRN Hypotension Nicotine 14 mg 02/02/19 10:00 02/20/19 11:01 Habitrol TD 14 mg QDAY ENOC Administration Ondansetron HCl 4 mg 02/01/19 20:23 02/07/19 22:45 Zofran IV 4 mg Q8H PRN Administration Nausea And Vomiting Pantoprazole Sodium 40 mg 02/06/19 11:30 02/20/19 11:01 Protonix PO 40 mg QDAY ENOC Administration Sodium Chloride 10 ml 02/01/19 22:00 02/20/19 11:07 Sodium Chloride Flush Syringe 10 Ml IV 10 ml BID ENOC Administration Sodium Chloride 10 ml 02/01/19 20:23 02/18/19 05:35 Sodium Chloride Flush Syringe 10 Ml IV 10 ml PRN PRN Administration LINE FLUSH Nutrition/Malnutrition Assess - Dietary Evaluation Nutrition/Malnutrition Findings: Nutrition Notes Start: 02/03/19 09:42 Freq: Status: Active Protocol: Document 02/08/19 10:03 LP (Rec: 02/08/19 10:05 LP [id number]) Nutrition Notes Need for Assessment generated from: LOS Initial or Follow up Brief Note Subjective/Other Information Screen for LOS. Pt continues eating well. Consuming at least 75% of meals. Nutrition Intervention Revisit per MD consult or patient Sign Off request:
[2019-02-21] MEDS: hydrALAZINE 100 MG TAB PO SCH ×3 (09:04→21:47)
--- NOTE | 2019-02-21 09:18 | Progress Note ---
Assessment and Plan - Patient Problems (1) Renal failure Current Visit: Yes Status: Chronic Qualifiers: Renal failure chronicity: unspecified chronicity Qualified Code(s): N19 - Unspecified kidney failure Plan to address problem: Patient has significant renal failure. Discussed with primary attending, and he has been started on hemodialysis at this time. He has a functioning right IJ PermCath. We will maintain him on a TTS inpatient hemodialysis schedule. Case management to work with outpatient dialysis placement. (2) Acute respiratory failure with hypoxia Current Visit: Yes Status: Acute Plan to address problem: Overall respiratory status has stabilized. We'll continue to challenge with ultrafiltration during hemodialysis.. (3) Hypertensive chronic kidney disease with stage 1 through stage 4 chronic kidney disease, or unspecified chronic kidney disease Current Visit: Yes Status: Chronic Plan to address problem: Continue to monitor blood pressures under current regimen. (4) Proteinuria Current Visit: Yes Status: Acute Plan to address problem: Non nephrotic range proteinuria. Will continue to monitor. (5) Schizoaffective disorder Current Visit: Yes Status: Chronic Plan to address problem: Management per primary attending Subjective Date of service: 02/21/19 Principal diagnosis: acute kidney injury Interval history: No acute issues overnight. Plan for hemodialysis today. Pending placement at this time. Objective - Vital Signs Vital signs: Vital Signs - 12hr 02/20/19 02/20/19 02/20/19 21:55 22:00 23:33 Temperature 98.0 F Pulse Rate 90 88 81 Respiratory 20 Rate Blood Pressure 139/100 90/62 O2 Sat by Pulse 100 Oximetry 02/21/19 02/21/19 02/21/19 04:10 06:13 08:19 Temperature 98.0 F Pulse Rate 75 Respiratory 18 18 Rate Blood Pressure 119/74 O2 Sat by Pulse 99 100 Oximetry - General Appearance General appearance: well-nourished, appears stated age EENT: ATNC, PERRL Neck: no JVD, no thyromegaly Respiratory: Present: Clear to Ascultation, Normal Exam Cardiology: regular, S1S2 Gastrointestinal: normal, normoactive bowel sounds Integumentary: no rash, warm and dry Neurologic: no focal deficit, no asterixis, confused Musculoskeletal: deferred Psychiatric: cooperative - Lab 02/18/19 05:00 02/20/19 06:12 Most recent lab results ABG pH 7.442 pH Units (7.350-7.450) 02/13/19 08:50 ABG pCO2 27.9 mm Hg 02/13/19 08:50 ABG pO2 58.1 mm Hg (80.0-90.0) L 02/13/19 08:50 ABG HCO3 18.6 mmol/L (20.0-26.0) L 02/13/19 08:50 ABG O2 Saturation 90.9 % (95.0-99.0) L 02/13/19 08:50 Calcium 8.9 mg/dL (8.4-10.2) 02/20/19 06:12 Phosphorus 2.20 mg/dL (2.5-4.5) L 02/10/19 10:03 Magnesium 1.60 mg/dL (1.7-2.3) L 02/10/19 10:03 Urine Creatinine 115.8 mg/dL (0.1-20.0) H 02/02/19 02:30 Urine Sodium 99 mmol/L 02/02/19 02:30 Urine Total Protein 198 mg/dL (5-11.8) H 02/02/19 02:30 - Imaging Chest x-ray: report reviewed - Allied health notes Allied health notes reviewed: nursing Medications & Allergies - Medications Allergies/Adverse Reactions: Allergies No Known Allergies Allergy (Unverified 04/17/17 13:03) Home Medications: Home Medications Medication Instructions Recorded Confirmed Last Taken Type ARIPiprazole [Abilify] 20 mg PO QDAY 02/03/19 02/03/19 1 Day Ago History ~02/02/19 Losartan/Hydrochlorothiazide 1 each PO QDAY 02/03/19 02/03/19 Unknown History [Losartan-Hctz 100-25 mg Tab] Active Medications: Generic Name Dose Route Start Last Admin Trade Name Freq PRN Reason Stop Dose Admin Acetaminophen 650 mg 02/01/19 20:23 02/13/19 09:22 Tylenol PO 650 mg Q4H PRN Administration Pain MILD(1-3)/Fever >100.5/QUAN Amlodipine Besylate 10 mg 02/01/19 21:00 02/20/19 11:00 Amlodipine PO Not Given QDAY ENOC Aripiprazole 5 mg 02/06/19 13:00 02/20/19 11:01 Aripiprazole PO 5 mg QDAY ENOC Administration Carvedilol 6.25 mg 02/01/19 21:21 02/20/19 21:55 Coreg PO 6.25 mg BID ENOC Administration Clonidine HCl 0.2 mg 02/06/19 11:30 02/20/19 21:55 Catapres PO 0.2 mg Q12HR ENOC Administration Docusate Sodium 100 mg 02/01/19 22:00 02/20/19 21:55 Colace PO 100 mg BID ENOC Administration Haloperidol Lactate 5 mg 02/08/19 11:09 02/17/19 20:32 Haldol IM 5 mg Q6H PRN Administration Agitation Heparin Sodium (Porcine) 5,000 unit 02/11/19 22:00 02/20/19 21:56 Heparin SUB-Q 5,000 unit Q12HR ENOC Administration Hydralazine HCl 10 mg 02/01/19 20:12 02/07/19 22:55 Apresoline IV 10 mg Q4HR PRN Administration Blood Pressure Hydralazine HCl 100 mg 02/01/19 21:21 02/21/19 09:04 Apresoline PO Not Given TID ENOC Sodium Chloride 100 mls @ 999 mls/hr 02/18/19 13:37 Nacl 0.9% IV LOKESH PRN Hypotension Nicotine 14 mg 02/02/19 10:00 02/20/19 11:01 Habitrol TD 14 mg QDAY ENOC Administration Ondansetron HCl 4 mg 02/01/19 20:23 02/07/19 22:45 Zofran IV 4 mg Q8H PRN Administration Nausea And Vomiting Pantoprazole Sodium 40 mg 02/06/19 11:30 02/20/19 11:01 Protonix PO 40 mg QDAY ENOC Administration Sodium Chloride 10 ml 02/01/19 22:00 02/20/19 21:53 Sodium Chloride Flush Syringe 10 Ml IV 10 ml BID ENOC Administration Sodium Chloride 10 ml 02/01/19 20:23 02/18/19 05:35 Sodium Chloride Flush Syringe 10 Ml IV 10 ml PRN PRN Administration LINE FLUSH
[2019-02-21] MEDS: cloNIDine 0.2 MG TAB PO SCH ×2 (13:45→21:47)
[2019-02-21] MEDS: amLODIPine 10 MG TAB PO SCH (13:45)
[2019-02-21] MEDS: carvediloL 6.25 MG TAB PO SCH ×2 (13:46→21:46)
[2019-02-21] MEDS: HEPARIN 5,000 UNIT/1 ML VIAL SUB-Q SCH ×2 (13:47→21:46)
[2019-02-21] MEDS: ARIPiprazole 5 MG TAB PO SCH (13:47)
[2019-02-21] MEDS: PANTOPRAZOLE 40 MG TAB PO SCH (13:47)
[2019-02-21] MEDS: NICOTINE 14 MG/24 HR PATCH TD SCH (13:49)
[2019-02-21] MEDS: DOCUSATE SODIUM 100 MG CAP PO SCH ×2 (13:49→21:47)
--- NOTE | 2019-02-21 16:43 | Progress Note ---
Assessment and Plan MIKEL on CKD 4 - vasomotor nephropathy versus progression of underlying chronic medical disease -Cr on admission 7.5 -CT abdomen and pelvis showed Indeterminant renal masses -Avoid nephrotoxic agents -Renally dose all meds -Nephrology initiated hemdialysis on 02/17 Acute respiratory failure with hypoxia Cont. supp Oxygen Pulmonology following Metabolic encephalopathy -CT head negative -Continue Neuro checks -Neurology consulted and ruled out focal seizure, received IV Keppra in the ER -Hold Bacolfen d/t renal function - Possibly underlying psych issues also contributing - Mental health evaluation done hx schizophrenia and bipolar - Abilify 5 mg PO daily, psych following Agitation haldol prn -Hx Hypertension -BP uncontrolled. Continue to adjust medications as needed Hx Right subarachnoid hemorrhage, status post right frontal craniotomy Hx aneurysm, status post clipping -Continue supportive care -Neurology recommended outpatient follow Tobacco abuse -Current every day smoker -Counseled for cessation -Nicotine patch when necessary Thrombocytopenia. - cont to Monitor DVT PPX -SCD's awaiting SNF placement prior to starting hemodialysis. Subjective Date of service: 02/21/19 Principal diagnosis: acute kidney injury, Interval history: Patient seen and examined. History of autonomous mental status. Temperature 100.5 at Hemodialysis today Objective - Exam Narrative Exam: Constitutional: Well-nourished well-developed. In no distress Head: Normocephalic atraumatic Eyes: Pupils are equal round and reactive to light Nose: No enlarged turbinates, no septal deviation. Mouth: Moist mucous membranes. Neck: Supple no thyromegaly. No bruit. No JVD Heart: Regular rate and rhythm, S1-S2 normal. No rubs murmurs or gallop Lungs: Clear to auscultation bilaterally. no rales or rhonchi Abdomen: Soft, nontender. Bowel sound are present. Extremities: No edema, no cyanosis, no clubbing. Neuro: Confused . Left hemiparesis. Skin: No rashes or hyperpigmented spots Musculoskeletal system: No joint pain or swelling Hematological: No petechia or subcutanous hemorrhages. Immunological: No multiple septic spots on the skin Lymphatic: No generalized lymphadenopathy Psychiatry: Confused - Constitutional Vitals: Vital Signs - 12hr 02/21/19 02/21/19 02/21/19 06:13 08:00 08:19 Temperature Pulse Rate Respiratory 18 18 Rate Blood Pressure Blood Pressure [Left] O2 Sat by Pulse 100 Oximetry O2 Sat by Pulse Oximetry [ Anterior Bilateral Throughout] 02/21/19 02/21/19 02/21/19 09:55 10:00 10:15 Temperature 99.1 F Pulse Rate 76 71 72 Respiratory 16 Rate Blood Pressure 127/91 127/92 132/88 Blood Pressure [Left] O2 Sat by Pulse Oximetry O2 Sat by Pulse 100 Oximetry [ Anterior Bilateral Throughout] 02/21/19 02/21/19 02/21/19 10:30 10:45 11:00 Temperature Pulse Rate 78 96 H 78 Respiratory Rate Blood Pressure 121/71 100/58 106/66 Blood Pressure [Left] O2 Sat by Pulse Oximetry O2 Sat by Pulse Oximetry [ Anterior Bilateral Throughout] 02/21/19 02/21/19 02/21/19 11:15 11:30 11:45 Temperature Pulse Rate 92 H 82 92 H Respiratory Rate Blood Pressure 86/44 117/81 113/67 Blood Pressure [Left] O2 Sat by Pulse Oximetry O2 Sat by Pulse Oximetry [ Anterior Bilateral Throughout] 02/21/19 02/21/19 02/21/19 12:00 12:15 13:27 Temperature 100.5 F H 99.0 F Pulse Rate 95 H 71 88 Respiratory 16 18 Rate Blood Pressure 99/63 125/76 Blood Pressure 99/68 [Left] O2 Sat by Pulse 100 Oximetry O2 Sat by Pulse 97 Oximetry [ Anterior Bilateral Throughout] 02/21/19 02/21/19 13:45 13:46 Temperature Pulse Rate 88 88 Respiratory Rate Blood Pressure 99/68 99/68 Blood Pressure [Left] O2 Sat by Pulse Oximetry O2 Sat by Pulse Oximetry [ Anterior Bilateral Throughout] - Labs CBC & Chem 7: 02/18/19 05:00 02/20/19 06:12
[2019-02-21] MEDS ORDERED: SODIUM CHLORIDE*PRIMING MACHINE ONLY FOR DIALYSIS MC ONE (16:54)
[2019-02-22] MEDS: hydrALAZINE 100 MG TAB PO SCH ×3 (08:35→21:57)
[2019-02-22] MEDS: DOCUSATE SODIUM 100 MG CAP PO SCH ×2 (10:08→21:57)
--- NOTE | 2019-02-22 10:08 | Progress Note ---
Assessment and Plan - Patient Problems (1) Renal failure Current Visit: Yes Status: Chronic Qualifiers: Renal failure chronicity: unspecified chronicity Qualified Code(s): N19 - Unspecified kidney failure Plan to address problem: Patient has significant renal failure. Discussed with primary attending, and he has been started on hemodialysis at this time. He has a functioning right IJ PermCath. We will maintain him on a TTS inpatient hemodialysis schedule. Case management to work with outpatient dialysis placement. (2) Acute respiratory failure with hypoxia Current Visit: Yes Status: Acute Plan to address problem: Overall respiratory status has stabilized. We'll continue to challenge with ultrafiltration during hemodialysis.. (3) Hypertensive chronic kidney disease with stage 1 through stage 4 chronic kidney disease, or unspecified chronic kidney disease Current Visit: Yes Status: Chronic Plan to address problem: Continue to monitor blood pressures under current regimen. (4) Proteinuria Current Visit: Yes Status: Acute Plan to address problem: Non nephrotic range proteinuria. Will continue to monitor. (5) Schizoaffective disorder Current Visit: Yes Status: Chronic Plan to address problem: Management per primary attending Subjective Date of service: 02/22/19 Principal diagnosis: acute kidney injury, Interval history: No acute issues overnight. Objective - Vital Signs Vital signs: Vital Signs - 12hr 02/21/19 02/22/19 02/22/19 23:45 03:00 04:28 Temperature 98.3 F 98.1 F Pulse Rate 83 90 88 Respiratory 18 18 Rate Blood Pressure 131/91 148/101 O2 Sat by Pulse 100 100 Oximetry 02/22/19 02/22/19 08:03 08:10 Temperature 98.8 F Pulse Rate 98 H Respiratory 18 Rate Blood Pressure 142/98 O2 Sat by Pulse 100 100 Oximetry - General Appearance General appearance: well-nourished, appears stated age EENT: ATNC, PERRL Neck: no JVD, no thyromegaly Respiratory: Present: Clear to Ascultation Cardiology: regular, S1S2 Gastrointestinal: normal, normoactive bowel sounds Integumentary: warm and dry Neurologic: confused Musculoskeletal: deferred Psychiatric: cooperative - Lab 02/18/19 05:00 02/20/19 06:12 Most recent lab results ABG pH 7.442 pH Units (7.350-7.450) 02/13/19 08:50 ABG pCO2 27.9 mm Hg 02/13/19 08:50 ABG pO2 58.1 mm Hg (80.0-90.0) L 02/13/19 08:50 ABG HCO3 18.6 mmol/L (20.0-26.0) L 02/13/19 08:50 ABG O2 Saturation 90.9 % (95.0-99.0) L 02/13/19 08:50 Calcium 8.9 mg/dL (8.4-10.2) 02/20/19 06:12 Phosphorus 2.20 mg/dL (2.5-4.5) L 02/10/19 10:03 Magnesium 1.60 mg/dL (1.7-2.3) L 02/10/19 10:03 Urine Creatinine 115.8 mg/dL (0.1-20.0) H 02/02/19 02:30 Urine Sodium 99 mmol/L 02/02/19 02:30 Urine Total Protein 198 mg/dL (5-11.8) H 02/02/19 02:30 - Allied health notes Allied health notes reviewed: nursing Medications & Allergies - Medications Allergies/Adverse Reactions: Allergies No Known Allergies Allergy (Unverified 04/17/17 13:03) Home Medications: Home Medications Medication Instructions Recorded Confirmed Last Taken Type ARIPiprazole [Abilify] 20 mg PO QDAY 02/03/19 02/03/19 1 Day Ago History ~02/02/19 Losartan/Hydrochlorothiazide 1 each PO QDAY 02/03/19 02/03/19 Unknown History [Losartan-Hctz 100-25 mg Tab] Active Medications: Generic Name Dose Route Start Last Admin Trade Name Claudia PRN Reason Stop Dose Admin Acetaminophen 650 mg 02/01/19 20:23 02/13/19 09:22 Tylenol PO 650 mg Q4H PRN Administration Pain MILD(1-3)/Fever >100.5/QUAN Amlodipine Besylate 10 mg 02/01/19 21:00 02/21/19 13:45 Amlodipine PO Not Given QDAY ENOC Aripiprazole 5 mg 02/06/19 13:00 02/21/19 13:47 Aripiprazole PO 5 mg QDAY ENOC Administration Carvedilol 6.25 mg 02/01/19 21:21 02/21/19 21:46 Coreg PO Not Given BID ENOC Clonidine HCl 0.2 mg 02/06/19 11:30 02/21/19 21:47 Catapres PO Not Given Q12HR ENOC Docusate Sodium 100 mg 02/01/19 22:00 02/21/19 21:47 Colace PO 100 mg BID ENOC Administration Haloperidol Lactate 5 mg 02/08/19 11:09 02/17/19 20:32 Haldol IM 5 mg Q6H PRN Administration Agitation Heparin Sodium (Porcine) 5,000 unit 02/11/19 22:00 02/21/19 21:46 Heparin SUB-Q 5,000 unit Q12HR ENOC Administration Hydralazine HCl 10 mg 02/01/19 20:12 02/07/19 22:55 Apresoline IV 10 mg Q4HR PRN Administration Blood Pressure Hydralazine HCl 100 mg 02/01/19 21:21 02/22/19 08:35 Apresoline PO 100 mg TID ENOC Administration Sodium Chloride 100 mls @ 999 mls/hr 02/18/19 13:37 Nacl 0.9% IV LOKESH PRN Hypotension Nicotine 14 mg 02/02/19 10:00 02/21/19 13:49 Habitrol TD 14 mg QDAY ENOC Administration Ondansetron HCl 4 mg 02/01/19 20:23 02/07/19 22:45 Zofran IV 4 mg Q8H PRN Administration Nausea And Vomiting Pantoprazole Sodium 40 mg 02/06/19 11:30 02/21/19 13:47 Protonix PO 40 mg QDAY ENOC Administration Sodium Chloride 10 ml 02/01/19 22:00 02/21/19 21:47 Sodium Chloride Flush Syringe 10 Ml IV 10 ml BID ENOC Administration Sodium Chloride 10 ml 02/01/19 20:23 02/18/19 05:35 Sodium Chloride Flush Syringe 10 Ml IV 10 ml PRN PRN Administration LINE FLUSH
[2019-02-22] MEDS: carvediloL 6.25 MG TAB PO SCH ×2 (10:12→21:57)
[2019-02-22] MEDS: PANTOPRAZOLE 40 MG TAB PO SCH (10:13)
[2019-02-22] MEDS: amLODIPine 10 MG TAB PO SCH (10:13)
[2019-02-22] MEDS: cloNIDine 0.2 MG TAB PO SCH ×2 (10:13→21:58)
[2019-02-22] MEDS: NICOTINE 14 MG/24 HR PATCH TD SCH (10:14)
[2019-02-22] MEDS: ARIPiprazole 5 MG TAB PO SCH (10:14)
[2019-02-22] MEDS: HEPARIN 5,000 UNIT/1 ML VIAL SUB-Q SCH ×2 (10:14→21:59)
--- NOTE | 2019-02-22 10:17 | Progress Note ---
Assessment and Plan Assessment and plan: MIKEL on CKD 4 - vasomotor nephropathy versus progression of underlying chronic medical disease -Cr on admission 7.5 -CT abdomen and pelvis showed Indeterminant renal masses -Avoid nephrotoxic agents -Renally dose all meds -Nephrology initiated hemdialysis on 02/17 Acute respiratory failure with hypoxia Cont. supp Oxygen, now only 2l/min Will check oxygen sat on RA today Pulmonology following Metabolic encephalopathy -CT head negative -Continue Neuro checks -Neurology consulted and ruled out focal seizure, received IV Keppra in the ER -Hold Bacolfen d/t renal function - Possibly underlying psych issues also contributing - Mental health evaluation done hx schizophrenia and bipolar - Abilify 5 mg PO daily, psych following Agitation haldol prn -Hx Hypertension -BP uncontrolled. Continue to adjust medications as needed Hx Right subarachnoid hemorrhage, status post right frontal craniotomy Hx aneurysm, status post clipping -Continue supportive care -Neurology recommended outpatient follow Tobacco abuse -Current every day smoker -Counseled for cessation -Nicotine patch when necessary Thrombocytopenia. - cont to Monitor DVT PPX -SCD's Medically stable for SNF placement with dialysis, but needs Level 2 clearance. History Interval history: Patient initially presented with nausea, vomiting, generalized weakness, Altered mental status, Agitation on and off Started on dialysis 02/17 Hospitalist Physical - Physical exam Narrative exam: Gen: Not in acute distress, lying in bed,now on high flow Oxygen by NC 15 l/min Fi02 35 HEENT: Normocephalic, atraumatic Neck: supple, no JVD Heart: S1 and S2 reg, no murmurs, rubs or gallop Lungs: Clear, no crackles Abd: soft, non tender, non distended, normal BS, Ext: No edema, no clubbing, no cyanosis Neuro: Awake, alert, no focal neurological signs - Constitutional Vitals: Temp Pulse Resp BP Pulse Ox 98.8 F 98 H 18 142/98 100 02/22/19 08:03 02/22/19 08:03 02/22/19 08:03 02/22/19 08:03 02/22/19 08:10 General appearance: Present: no acute distress, well-nourished Results - Labs CBC & Chem 7: 02/18/19 05:00 02/20/19 06:12 Labs: Laboratory Last Values WBC 8.6 K/mm3 (4.5-11.0) 02/18/19 05:00 RBC 3.31 M/mm3 (3.65-5.03) L 02/18/19 05:00 Hgb 9.4 gm/dl (11.8-15.2) L 02/18/19 05:00 Hct 28.7 % (35.5-45.6) L 02/18/19 05:00 MCV 87 fl (84-94) 02/18/19 05:00 MCH 28 pg (28-32) 02/18/19 05:00 MCHC 33 % (32-34) 02/18/19 05:00 RDW 13.9 % (13.2-15.2) 02/18/19 05:00 Plt Count 311 K/mm3 (140-440) 02/18/19 05:00 Lymph % (Auto) 11.9 % (13.4-35.0) L 02/18/19 05:00 [place]ukes % (Auto) 8.6 % (0.0-7.3) H 02/18/19 05:00 Eos % (Auto) 4.5 % (0.0-4.3) H 02/18/19 05:00 Baso % (Auto) 0.5 % (0.0-1.8) 02/18/19 05:00 Lymph # 1.0 K/mm3 (1.2-5.4) L 02/18/19 05:00 Dukes # 0.7 K/mm3 (0.0-0.8) 02/18/19 05:00 Eos # 0.4 K/mm3 (0.0-0.4) 02/18/19 05:00 Baso # 0.0 K/mm3 (0.0-0.1) 02/18/19 05:00 Seg Neutrophils % 74.5 % (40.0-70.0) H 02/18/19 05:00 Seg Neutrophils # 6.4 K/mm3 (1.8-7.7) 02/18/19 05:00 POC ABG pH 7.398 (7.35-7.45) 02/10/19 10:16 ABG pH 7.442 pH Units (7.350-7.450) 02/13/19 08:50 POC ABG pCO2 25.4 (35-45) L 02/10/19 10:16 ABG pCO2 27.9 mm Hg 02/13/19 08:50 ABG pO2 58.1 mm Hg (80.0-90.0) L 02/13/19 08:50 POC ABG HCO3 15.6 (22-26 mml/L) 02/10/19 10:16 ABG HCO3 18.6 mmol/L (20.0-26.0) L 02/13/19 08:50 POC ABG Total CO2 16 (23-27mmol/L) 02/10/19 10:16 POC ABG O2 Sat 76 02/10/19 10:16 ABG O2 Saturation 90.9 % (95.0-99.0) L 02/13/19 08:50 ABG O2 Content 11.3 (0.0-44) 02/13/19 08:50 POC ABG Base Excess -9 ((-2) - (+3)mmol/L) 02/10/19 10:16 ABG Base Excess -4.6 mmol/L (-2.0-3.0) L 02/13/19 08:50 ABG Hemoglobin 9.0 gm/dl (14.0-18.0) L 02/13/19 08:50 ABG Carboxyhemoglobin 2.0 % (0.0-5.0) 02/13/19 08:50 ABG Methemoglobin 0.6 % (0.0-1.5) 02/13/19 08:50 Oxyhemoglobin 88.6 % (95.0-99.0) L 02/13/19 08:50 FiO2 40 % 02/13/19 08:50 Sodium 139 mmol/L (137-145) 02/20/19 06:12 Potassium 4.3 mmol/L (3.6-5.0) 02/20/19 06:12 Chloride 95.8 mmol/L (98-107) L 02/20/19 06:12 Carbon Dioxide 22 mmol/L (22-30) 02/20/19 06:12 Anion Gap 26 mmol/L 02/20/19 06:12 BUN 84 mg/dL (9-20) H 02/20/19 06:12 Creatinine 9.5 mg/dL (0.8-1.5) H 02/20/19 06:12 Estimated GFR 7 ml/min 02/20/19 06:12 BUN/Creatinine Ratio 9 % 02/20/19 06:12 Glucose 99 mg/dL (75-100) 02/20/19 06:12 POC Glucose 134 (70-105) H 02/06/19 21:06 Hemoglobin A1c < 4.0 % (4-6) L 02/07/19 07:41 Calcium 8.9 mg/dL (8.4-10.2) 02/20/19 06:12 Phosphorus 2.20 mg/dL (2.5-4.5) L 02/10/19 10:03 Magnesium 1.60 mg/dL (1.7-2.3) L 02/10/19 10:03 Total Bilirubin 0.40 mg/dL (0.1-1.2) 02/10/19 10:03 AST 27 units/L (5-40) 02/10/19 10:03 ALT 23 units/L (7-56) 02/10/19 10:03 Alkaline Phosphatase 70 units/L (35-129) 02/10/19 10:03 Ammonia 34.0 umol/L (25-60) 02/01/19 17:52 Total Creatine Kinase 66 units/L (55-170) 02/01/19 17:52 Total Protein 5.9 g/dL (6.3-8.2) L 02/10/19 10:03 Albumin 3.1 g/dL (3.9-5) L 02/10/19 10:03 Albumin/Globulin Ratio 1.1 % 02/10/19 10:03 Triglycerides 135 mg/dL (2-149) 02/07/19 07:41 Cholesterol 155 mg/dL (50-199) 02/07/19 07:41 LDL Cholesterol Direct 101 mg/dL (50-130) 02/07/19 07:41 HDL Cholesterol 39 mg/dL (40-59) L 02/07/19 07:41 Cholesterol/HDL Ratio 3.97 % 02/07/19 07:41 TSH 1.990 mlU/mL (0.270-4.200) 02/01/19 17:52 Urine Color Yellow (Yellow) 02/01/19 20:45 Urine Turbidity Slightly-cloudy (Clear) 02/01/19 20:45 Urine pH 5.0 (5.0-7.0) 02/01/19 20:45 Ur Specific [place] 1.013 (1.003-1.030) 02/01/19 20:45 Urine Protein >500 mg/dL (Negative) 02/01/19 20:45 Urine Glucose (UA) Neg mg/dL (Negative) 02/01/19 20:45 Urine Ketones Neg mg/dL (Negative) 02/01/19 20:45 Urine Blood Sm (Negative) 02/01/19 20:45 Urine Nitrite Neg (Negative) 02/01/19 20:45 Urine Bilirubin Neg (Negative) 02/01/19 20:45 Urine Urobilinogen < 2.0 mg/dL (<2.0) 02/01/19 20:45 Ur Leukocyte Esterase Neg (Negative) 02/01/19 20:45 Urine WBC (Auto) 2.0 /HPF (0.0-6.0) 02/01/19 20:45 Urine RBC (Auto) 3.0 /HPF (0.0-6.0) 02/01/19 20:45 U Epithel Cells (Auto) 1.0 /HPF (0-13.0) 02/01/19 20:45 Urine Bacteria (Auto) 1+ /HPF (Negative) 02/01/19 20:45 Urine Mucus Few /HPF 02/01/19 20:45 Urine Yeast (Budding) 1+ /HPF 02/01/19 20:45 Urine Eosinophils None seen (None Seen) 02/02/19 02:30 Urine Creatinine 115.8 mg/dL (0.1-20.0) H 02/02/19 02:30 Urine Sodium 99 mmol/L 02/02/19 02:30 Urine Total Protein 198 mg/dL (5-11.8) H 02/02/19 02:30 Salicylates < 0.3 mg/dL (2.8-20.0) L 02/01/19 17:52 Acetaminophen < 5.0 ug/mL (10.0-30.0) L 02/01/19 17:52 Plasma/Serum Alcohol < 0.01 % (0-0.07) 02/01/19 17:52 Hepatitis A IgM Ab Non-reactive (NonReactive) 02/15/19 16:41 Hep Bs Antigen Non-reactive (Negative) 02/15/19 16:41 Hep B Core IgM Ab Non-reactive (NonReactive) 02/15/19 16:41 Hepatitis C Antibody Non-reactive (NonReactive) 02/15/19 16:41 Active Medications - Current Medications Current Medications: Generic Name Dose Route Start Last Admin Trade Name Freq PRN Reason Stop Dose Admin Acetaminophen 650 mg 02/01/19 20:23 02/13/19 09:22 Tylenol PO 650 mg Q4H PRN Administration Pain MILD(1-3)/Fever >100.5/QUAN Amlodipine Besylate 10 mg 02/01/19 21:00 02/21/19 13:45 Amlodipine PO Not Given QDAY ENOC Aripiprazole 5 mg 02/06/19 13:00 02/21/19 13:47 Aripiprazole PO 5 mg QDAY ENOC Administration Carvedilol 6.25 mg 02/01/19 21:21 02/21/19 21:46 Coreg PO Not Given BID ENOC Clonidine HCl 0.2 mg 02/06/19 11:30 02/21/19 21:47 Catapres PO Not Given Q12HR [facility] Docusate Sodium 100 mg 02/01/19 22:00 02/21/19 21:47 Colace PO 100 mg BID ENOC Administration Haloperidol Lactate 5 mg 02/08/19 11:09 02/17/19 20:32 Haldol IM 5 mg Q6H PRN Administration Agitation Heparin Sodium (Porcine) 5,000 unit 02/11/19 22:00 02/21/19 21:46 Heparin SUB-Q 5,000 unit Q12HR ENOC Administration Hydralazine HCl 10 mg 02/01/19 20:12 02/07/19 22:55 Apresoline IV 10 mg Q4HR PRN Administration Blood Pressure Hydralazine HCl 100 mg 02/01/19 21:21 02/22/19 08:35 Apresoline PO 100 mg TID ENOC Administration Sodium Chloride 100 mls @ 999 mls/hr 02/18/19 13:37 Nacl 0.9% IV LOKESH PRN Hypotension Nicotine 14 mg 02/02/19 10:00 02/21/19 13:49 Habitrol TD 14 mg QDAY ENOC Administration Ondansetron HCl 4 mg 02/01/19 20:23 02/07/19 22:45 Zofran IV 4 mg Q8H PRN Administration Nausea And Vomiting Pantoprazole Sodium 40 mg 02/06/19 11:30 02/21/19 13:47 Protonix PO 40 mg QDAY ENOC Administration Sodium Chloride 10 ml 02/01/19 22:00 02/21/19 21:47 Sodium Chloride Flush Syringe 10 Ml IV 10 ml BID ENOC Administration Sodium Chloride 10 ml 02/01/19 20:23 02/18/19 05:35 Sodium Chloride Flush Syringe 10 Ml IV 10 ml PRN PRN Administration LINE FLUSH Nutrition/Malnutrition Assess - Dietary Evaluation Nutrition/Malnutrition Findings: Nutrition Notes Start: 02/03/19 09:42 Freq: Status: Active Protocol: Document 02/08/19 10:03 LP (Rec: 02/08/19 10:05 LP [id number]) Nutrition Notes Need for Assessment generated from: LOS Initial or Follow up Brief Note Subjective/Other Information Screen for LOS. Pt continues eating well. Consuming at least 75% of meals. Nutrition Intervention Revisit per MD consult or patient Sign Off request:
[2019-02-22] MEDS ORDERED: SODIUM CHLORIDE 0.9% 100 ML IV PRN (18:01)
[2019-02-23] MEDS ORDERED: SODIUM CHLORIDE 0.9% 100 ML IV PRN (09:00)
[2019-02-23] MEDS: hydrALAZINE 100 MG TAB PO SCH ×3 (09:26→20:42)
[2019-02-23] MEDS: amLODIPine 10 MG TAB PO SCH (11:27)
[2019-02-23] MEDS: DOCUSATE SODIUM 100 MG CAP PO SCH ×3 (11:28→22:40)
[2019-02-23] MEDS: ARIPiprazole 5 MG TAB PO SCH ×2 (11:28→13:12)
[2019-02-23] MEDS: cloNIDine 0.2 MG TAB PO SCH ×2 (11:28→22:41)
[2019-02-23] MEDS: NICOTINE 14 MG/24 HR PATCH TD SCH ×2 (11:29→13:13)
[2019-02-23] MEDS: HEPARIN 5,000 UNIT/1 ML VIAL SUB-Q SCH ×3 (11:29→22:42)
[2019-02-23] MEDS: carvediloL 6.25 MG TAB PO SCH ×2 (11:29→22:40)
[2019-02-23] MEDS: PANTOPRAZOLE 40 MG TAB PO SCH ×2 (11:30→13:12)
[2019-02-23] MEDS ORDERED: SODIUM CHLORIDE*PRIMING MACHINE ONLY FOR DIALYSIS MC ONE (12:40)
--- NOTE | 2019-02-23 14:30 | Progress Note ---
Assessment and Plan - Patient Problems (1) Renal failure Current Visit: Yes Status: Chronic Qualifiers: Renal failure chronicity: unspecified chronicity Qualified Code(s): N19 - Unspecified kidney failure Plan to address problem: Patient has significant renal failure. Discussed with primary attending, and he has been started on hemodialysis at this time. He has a functioning right IJ PermCath. We will maintain him on a TTS inpatient hemodialysis schedule. Case management to work with outpatient dialysis placement. (2) Acute respiratory failure with hypoxia Current Visit: Yes Status: Acute Plan to address problem: Overall respiratory status has stabilized. We'll continue to challenge with ultrafiltration during hemodialysis.. (3) Hypertensive chronic kidney disease with stage 1 through stage 4 chronic kidney disease, or unspecified chronic kidney disease Current Visit: Yes Status: Chronic Plan to address problem: Continue to monitor blood pressures under current regimen. (4) Proteinuria Current Visit: Yes Status: Acute Plan to address problem: Non nephrotic range proteinuria. Will continue to monitor. (5) Schizoaffective disorder Current Visit: Yes Status: Chronic Plan to address problem: Management per primary attending Subjective Date of service: 02/23/19 Principal diagnosis: acute kidney injury, Interval history: No acute changes from renal standpoint. Pending placement. Objective - Vital Signs Vital signs: Vital Signs - 12hr 02/23/19 02/23/19 02/23/19 03:29 03:59 04:00 Temperature 98.5 F Pulse Rate 76 75 Respiratory 18 Rate Blood Pressure 99/68 O2 Sat by Pulse 100 Oximetry 02/23/19 02/23/19 02/23/19 07:38 09:35 09:45 Temperature 98.2 F 98.0 F Pulse Rate 74 68 71 Respiratory 18 18 Rate Blood Pressure 118/72 109/82 116/81 O2 Sat by Pulse 100 Oximetry 02/23/19 02/23/19 02/23/19 10:00 10:15 10:30 Temperature Pulse Rate 77 76 81 Respiratory 18 Rate Blood Pressure 117/84 112/80 120/78 O2 Sat by Pulse Oximetry 02/23/19 02/23/19 02/23/19 10:45 11:00 11:05 Temperature Pulse Rate 86 111 H 81 Respiratory Rate Blood Pressure 108/74 95/74 120/73 O2 Sat by Pulse Oximetry 02/23/19 02/23/19 02/23/19 11:15 11:27 11:28 Temperature Pulse Rate 80 74 74 Respiratory Rate Blood Pressure 120/70 118/72 118/72 O2 Sat by Pulse Oximetry 02/23/19 02/23/19 02/23/19 11:29 11:30 11:45 Temperature Pulse Rate 74 103 H 100 H Respiratory Rate Blood Pressure 118/72 98/68 103/69 O2 Sat by Pulse Oximetry 02/23/19 02/23/19 02/23/19 12:00 12:15 12:20 Temperature Pulse Rate 107 H 89 77 Respiratory Rate Blood Pressure 100/73 75/33 103/69 O2 Sat by Pulse Oximetry 02/23/19 02/23/19 12:35 12:45 Temperature 98.0 F Pulse Rate 70 87 Respiratory 18 Rate Blood Pressure 112/69 112/68 O2 Sat by Pulse Oximetry - General Appearance General appearance: appears stated age, chronically ill EENT: ATNC, PERRL Neck: no JVD, no thyromegaly Respiratory: Present: Clear to Ascultation Cardiology: regular, S1S2 Gastrointestinal: normal, normoactive bowel sounds Integumentary: no rash Neurologic: confused, disoriented Musculoskeletal: deferred Psychiatric: cooperative - Lab 02/18/19 05:00 02/20/19 06:12 Most recent lab results ABG pH 7.442 pH Units (7.350-7.450) 02/13/19 08:50 ABG pCO2 27.9 mm Hg 02/13/19 08:50 ABG pO2 58.1 mm Hg (80.0-90.0) L 02/13/19 08:50 ABG HCO3 18.6 mmol/L (20.0-26.0) L 02/13/19 08:50 ABG O2 Saturation 90.9 % (95.0-99.0) L 02/13/19 08:50 Calcium 8.9 mg/dL (8.4-10.2) 02/20/19 06:12 Phosphorus 2.20 mg/dL (2.5-4.5) L 02/10/19 10:03 Magnesium 1.60 mg/dL (1.7-2.3) L 02/10/19 10:03 Urine Creatinine 115.8 mg/dL (0.1-20.0) H 02/02/19 02:30 Urine Sodium 99 mmol/L 02/02/19 02:30 Urine Total Protein 198 mg/dL (5-11.8) H 02/02/19 02:30 - Imaging Chest x-ray: report reviewed - Allied health notes Allied health notes reviewed: nursing Medications & Allergies - Medications Allergies/Adverse Reactions: Allergies No Known Allergies Allergy (Unverified 04/17/17 13:03) Home Medications: Home Medications Medication Instructions Recorded Confirmed Last Taken Type ARIPiprazole [Abilify] 20 mg PO QDAY 02/03/19 02/03/19 1 Day Ago History ~02/02/19 Losartan/Hydrochlorothiazide 1 each PO QDAY 02/03/19 02/03/19 Unknown History [Losartan-Hctz 100-25 mg Tab] Active Medications: Generic Name Dose Route Start Last Admin Trade Name Freq PRN Reason Stop Dose Admin Acetaminophen 650 mg 02/01/19 20:23 02/13/19 09:22 Tylenol PO 650 mg Q4H PRN Administration Pain MILD(1-3)/Fever >100.5/QUAN Amlodipine Besylate 10 mg 02/01/19 21:00 02/23/19 11:27 Amlodipine PO Not Given QDAY ENOC Aripiprazole 5 mg 02/06/19 13:00 02/23/19 13:12 Aripiprazole PO 5 mg QDAY ENOC Administration Carvedilol 6.25 mg 02/01/19 21:21 02/23/19 11:29 Coreg PO Not Given BID ENOC Clonidine HCl 0.2 mg 02/06/19 11:30 02/23/19 11:28 Catapres PO Not Given Q12HR ENOC Docusate Sodium 100 mg 02/01/19 22:00 02/23/19 13:13 Colace PO 100 mg BID ENOC Administration Haloperidol Lactate 5 mg 02/08/19 11:09 02/17/19 20:32 Haldol IM 5 mg Q6H PRN Administration Agitation Heparin Sodium (Porcine) 5,000 unit 02/11/19 22:00 02/23/19 13:18 Heparin SUB-Q 5,000 unit Q12HR ENOC Administration Hydralazine HCl 10 mg 02/01/19 20:12 02/07/19 22:55 Apresoline IV 10 mg Q4HR PRN Administration Blood Pressure Hydralazine HCl 100 mg 02/01/19 21:21 02/23/19 09:26 Apresoline PO Not Given TID ENOC Sodium Chloride 100 mls @ 999 mls/hr 02/23/19 09:00 Nacl 0.9% IV LOKESH PRN Hypotension Nicotine 14 mg 02/02/19 10:00 02/23/19 13:13 Habitrol TD 14 mg QDAY ENOC Administration Ondansetron HCl 4 mg 02/01/19 20:23 02/07/19 22:45 Zofran IV 4 mg Q8H PRN Administration Nausea And Vomiting Pantoprazole Sodium 40 mg 02/06/19 11:30 02/23/19 13:12 Protonix PO 40 mg QDAY ENOC Administration Sodium Chloride 10 ml 02/01/19 22:00 02/23/19 11:30 Sodium Chloride Flush Syringe 10 Ml IV Not Given BID ENOC Sodium Chloride 10 ml 02/01/19 20:23 02/18/19 05:35 Sodium Chloride Flush Syringe 10 Ml IV 10 ml PRN PRN Administration LINE FLUSH
--- NOTE | 2019-02-23 18:45 | Progress Note ---
Assessment and Plan Assessment and plan: MIKEL on CKD 4 - vasomotor nephropathy versus progression of underlying chronic medical disease -Cr on admission 7.5 -CT abdomen and pelvis showed Indeterminant renal masses -Avoid nephrotoxic agents -Renally dose all meds -Nephrology initiated hemdialysis on 02/17 Acute respiratory failure with hypoxia Cont. supp Oxygen, now only 2l/min Will check oxygen sat on RA today Pulmonology following Metabolic encephalopathy -CT head negative -Continue Neuro checks -Neurology consulted and ruled out focal seizure, received IV Keppra in the ER -Hold Bacolfen d/t renal function - Possibly underlying psych issues also contributing - Mental health evaluation done hx schizophrenia and bipolar - Abilify 5 mg PO daily, psych following Agitation haldol prn -Hx Hypertension -BP uncontrolled. Continue to adjust medications as needed Hx Right subarachnoid hemorrhage, status post right frontal craniotomy Hx aneurysm, status post clipping -Continue supportive care -Neurology recommended outpatient follow Tobacco abuse -Current every day smoker -Counseled for cessation -Nicotine patch when necessary Thrombocytopenia. - cont to Monitor DVT PPX -SCD's Medically stable for SNF placement with dialysis, but needs Level 2 clearance. History Interval history: Patient seen and examined today, initially was lethargic following dialysis but back to baseline. No new complaints Hospitalist Physical - Physical exam Narrative exam: Gen: Not in acute distress, lethargic but puked up during my examination, lying in bed,now on high flow Oxygen by NC 15 l/min Fi02 35 HEENT: Normocephalic, atraumatic Neck: supple, no JVD Heart: S1 and S2 reg, no murmurs, rubs or gallop Lungs: Clear, no crackles Abd: soft, non tender, non distended, normal BS, Ext: No edema, no clubbing, no cyanosis Neuro: Awake, alert, no focal neurological signs - Constitutional Vitals: Temp Pulse Resp BP Pulse Ox 97.9 F 83 18 105/73 100 02/23/19 16:14 02/23/19 16:14 02/23/19 16:14 02/23/19 16:14 02/23/19 16:14 General appearance: Present: no acute distress, well-nourished Results - Labs CBC & Chem 7: 02/18/19 05:00 02/20/19 06:12 Labs: Laboratory Last Values WBC 8.6 K/mm3 (4.5-11.0) 02/18/19 05:00 RBC 3.31 M/mm3 (3.65-5.03) L 02/18/19 05:00 Hgb 9.4 gm/dl (11.8-15.2) L 02/18/19 05:00 Hct 28.7 % (35.5-45.6) L 02/18/19 05:00 MCV 87 fl (84-94) 02/18/19 05:00 MCH 28 pg (28-32) 02/18/19 05:00 MCHC 33 % (32-34) 02/18/19 05:00 RDW 13.9 % (13.2-15.2) 02/18/19 05:00 Plt Count 311 K/mm3 (140-440) 02/18/19 05:00 Lymph % (Auto) 11.9 % (13.4-35.0) L 02/18/19 05:00 [place] % (Auto) 8.6 % (0.0-7.3) H 02/18/19 05:00 Eos % (Auto) 4.5 % (0.0-4.3) H 02/18/19 05:00 Baso % (Auto) 0.5 % (0.0-1.8) 02/18/19 05:00 Lymph # 1.0 K/mm3 (1.2-5.4) L 02/18/19 05:00 [place] # 0.7 K/mm3 (0.0-0.8) 02/18/19 05:00 Eos # 0.4 K/mm3 (0.0-0.4) 02/18/19 05:00 Baso # 0.0 K/mm3 (0.0-0.1) 02/18/19 05:00 Seg Neutrophils % 74.5 % (40.0-70.0) H 02/18/19 05:00 Seg Neutrophils # 6.4 K/mm3 (1.8-7.7) 02/18/19 05:00 POC ABG pH 7.398 (7.35-7.45) 02/10/19 10:16 ABG pH 7.442 pH Units (7.350-7.450) 02/13/19 08:50 POC ABG pCO2 25.4 (35-45) L 02/10/19 10:16 ABG pCO2 27.9 mm Hg 02/13/19 08:50 ABG pO2 58.1 mm Hg (80.0-90.0) L 02/13/19 08:50 POC ABG HCO3 15.6 (22-26 mml/L) 02/10/19 10:16 ABG HCO3 18.6 mmol/L (20.0-26.0) L 02/13/19 08:50 POC ABG Total CO2 16 (23-27mmol/L) 02/10/19 10:16 POC ABG O2 Sat 76 02/10/19 10:16 ABG O2 Saturation 90.9 % (95.0-99.0) L 02/13/19 08:50 ABG O2 Content 11.3 (0.0-44) 02/13/19 08:50 POC ABG Base Excess -9 ((-2) - (+3)mmol/L) 02/10/19 10:16 ABG Base Excess -4.6 mmol/L (-2.0-3.0) L 02/13/19 08:50 ABG Hemoglobin 9.0 gm/dl (14.0-18.0) L 02/13/19 08:50 ABG Carboxyhemoglobin 2.0 % (0.0-5.0) 02/13/19 08:50 ABG Methemoglobin 0.6 % (0.0-1.5) 02/13/19 08:50 Oxyhemoglobin 88.6 % (95.0-99.0) L 02/13/19 08:50 FiO2 40 % 02/13/19 08:50 Sodium 139 mmol/L (137-145) 02/20/19 06:12 Potassium 4.3 mmol/L (3.6-5.0) 02/20/19 06:12 Chloride 95.8 mmol/L (98-107) L 02/20/19 06:12 Carbon Dioxide 22 mmol/L (22-30) 02/20/19 06:12 Anion Gap 26 mmol/L 02/20/19 06:12 BUN 84 mg/dL (9-20) H 02/20/19 06:12 Creatinine 9.5 mg/dL (0.8-1.5) H 02/20/19 06:12 Estimated GFR 7 ml/min 02/20/19 06:12 BUN/Creatinine Ratio 9 % 02/20/19 06:12 Glucose 99 mg/dL (75-100) 02/20/19 06:12 POC Glucose 74 (70-105) 02/23/19 13:21 Hemoglobin A1c < 4.0 % (4-6) L 02/07/19 07:41 Calcium 8.9 mg/dL (8.4-10.2) 02/20/19 06:12 Phosphorus 2.20 mg/dL (2.5-4.5) L 02/10/19 10:03 Magnesium 1.60 mg/dL (1.7-2.3) L 02/10/19 10:03 Total Bilirubin 0.40 mg/dL (0.1-1.2) 02/10/19 10:03 AST 27 units/L (5-40) 02/10/19 10:03 ALT 23 units/L (7-56) 02/10/19 10:03 Alkaline Phosphatase 70 units/L (35-129) 02/10/19 10:03 Ammonia 34.0 umol/L (25-60) 02/01/19 17:52 Total Creatine Kinase 66 units/L (55-170) 02/01/19 17:52 Total Protein 5.9 g/dL (6.3-8.2) L 02/10/19 10:03 Albumin 3.1 g/dL (3.9-5) L 02/10/19 10:03 Albumin/Globulin Ratio 1.1 % 02/10/19 10:03 Triglycerides 135 mg/dL (2-149) 02/07/19 07:41 Cholesterol 155 mg/dL (50-199) 02/07/19 07:41 LDL Cholesterol Direct 101 mg/dL (50-130) 02/07/19 07:41 HDL Cholesterol 39 mg/dL (40-59) L 02/07/19 07:41 Cholesterol/HDL Ratio 3.97 % 02/07/19 07:41 TSH 1.990 mlU/mL (0.270-4.200) 02/01/19 17:52 Urine Color Yellow (Yellow) 02/01/19 20:45 Urine Turbidity Slightly-cloudy (Clear) 02/01/19 20:45 Urine pH 5.0 (5.0-7.0) 02/01/19 20:45 Ur Specific [place] 1.013 (1.003-1.030) 02/01/19 20:45 Urine Protein >500 mg/dL (Negative) 02/01/19 20:45 Urine Glucose (UA) Neg mg/dL (Negative) 02/01/19 20:45 Urine Ketones Neg mg/dL (Negative) 02/01/19 20:45 Urine Blood Sm (Negative) 02/01/19 20:45 Urine Nitrite Neg (Negative) 02/01/19 20:45 Urine Bilirubin Neg (Negative) 02/01/19 20:45 Urine Urobilinogen < 2.0 mg/dL (<2.0) 02/01/19 20:45 Ur Leukocyte Esterase Neg (Negative) 02/01/19 20:45 Urine WBC (Auto) 2.0 /HPF (0.0-6.0) 02/01/19 20:45 Urine RBC (Auto) 3.0 /HPF (0.0-6.0) 02/01/19 20:45 U Epithel Cells (Auto) 1.0 /HPF (0-13.0) 02/01/19 20:45 Urine Bacteria (Auto) 1+ /HPF (Negative) 02/01/19 20:45 Urine Mucus Few /HPF 02/01/19 20:45 Urine Yeast (Budding) 1+ /HPF 02/01/19 20:45 Urine Eosinophils None seen (None Seen) 02/02/19 02:30 Urine Creatinine 115.8 mg/dL (0.1-20.0) H 02/02/19 02:30 Urine Sodium 99 mmol/L 02/02/19 02:30 Urine Total Protein 198 mg/dL (5-11.8) H 02/02/19 02:30 Salicylates < 0.3 mg/dL (2.8-20.0) L 02/01/19 17:52 Acetaminophen < 5.0 ug/mL (10.0-30.0) L 02/01/19 17:52 Plasma/Serum Alcohol < 0.01 % (0-0.07) 02/01/19 17:52 Hepatitis A IgM Ab Non-reactive (NonReactive) 02/15/19 16:41 Hep Bs Antigen Non-reactive (Negative) 02/15/19 16:41 Hep B Core IgM Ab Non-reactive (NonReactive) 02/15/19 16:41 Hepatitis C Antibody Non-reactive (NonReactive) 02/15/19 16:41 Active Medications - Current Medications Current Medications: Generic Name Dose Route Start Last Admin Trade Name Freq PRN Reason Stop Dose Admin Acetaminophen 650 mg 02/01/19 20:23 02/13/19 09:22 Tylenol PO 650 mg Q4H PRN Administration Pain MILD(1-3)/Fever >100.5/QUAN Amlodipine Besylate 10 mg 02/01/19 21:00 02/23/19 11:27 Amlodipine PO Not Given QDAY ENOC Aripiprazole 5 mg 02/06/19 13:00 02/23/19 13:12 Aripiprazole PO 5 mg QDAY ENOC Administration Carvedilol 6.25 mg 02/01/19 21:21 02/23/19 11:29 Coreg PO Not Given BID ENOC Clonidine HCl 0.2 mg 02/06/19 11:30 02/23/19 11:28 Catapres PO Not Given Q12HR ENOC Docusate Sodium 100 mg 02/01/19 22:00 02/23/19 13:13 Colace PO 100 mg BID ENOC Administration Haloperidol Lactate 5 mg 02/08/19 11:09 02/17/19 20:32 Haldol IM 5 mg Q6H PRN Administration Agitation Heparin Sodium (Porcine) 5,000 unit 02/11/19 22:00 02/23/19 13:18 Heparin SUB-Q 5,000 unit Q12HR ENOC Administration Hydralazine HCl 10 mg 02/01/19 20:12 02/07/19 22:55 Apresoline IV 10 mg Q4HR PRN Administration Blood Pressure Hydralazine HCl 100 mg 02/01/19 21:21 02/23/19 15:07 Apresoline PO Not Given TID ENOC Sodium Chloride 100 mls @ 999 mls/hr 02/23/19 09:00 Nacl 0.9% IV LOKESH PRN Hypotension Nicotine 14 mg 02/02/19 10:00 02/23/19 13:13 Habitrol TD 14 mg QDAY ENOC Administration Ondansetron HCl 4 mg 02/01/19 20:23 02/07/19 22:45 Zofran IV 4 mg Q8H PRN Administration Nausea And Vomiting Pantoprazole Sodium 40 mg 02/06/19 11:30 02/23/19 13:12 Protonix PO 40 mg QDAY ENOC Administration Sodium Chloride 10 ml 02/01/19 22:00 02/23/19 11:30 Sodium Chloride Flush Syringe 10 Ml IV Not Given BID ENOC Sodium Chloride 10 ml 02/01/19 20:23 02/18/19 05:35 Sodium Chloride Flush Syringe 10 Ml IV 10 ml PRN PRN Administration LINE FLUSH Nutrition/Malnutrition Assess - Dietary Evaluation Nutrition/Malnutrition Findings: Nutrition Notes Start: 02/03/19 09:4 2 Freq: Status: Active Protocol: Document 02/08/19 10:03 LP (Rec: 02/08/19 10:05 LP [id number]) Nutrition Notes Need for Assessment generated from: LOS Initial or Follow up Brief Note Subjective/Other Information Screen for LOS. Pt continues eating well. Consuming at least 75% of meals. Nutrition Intervention Revisit per MD consult or patient Sign Off request:
[2019-02-24] MEDS: carvediloL 6.25 MG TAB PO SCH (09:15)
[2019-02-24] MEDS: DOCUSATE SODIUM 100 MG CAP PO SCH ×2 (09:15→21:48)
[2019-02-24] MEDS: ARIPiprazole 5 MG TAB PO SCH (09:15)
[2019-02-24] MEDS: PANTOPRAZOLE 40 MG TAB PO SCH (09:15)
[2019-02-24] MEDS: hydrALAZINE 100 MG TAB PO SCH ×2 (09:15→21:48)
[2019-02-24] MEDS: NICOTINE 14 MG/24 HR PATCH TD SCH (09:26)
[2019-02-24] MEDS: HEPARIN 5,000 UNIT/1 ML VIAL SUB-Q SCH ×2 (09:26→21:47)
[2019-02-24] MEDS: amLODIPine 10 MG TAB PO SCH (11:22)
--- NOTE | 2019-02-24 11:29 | Progress Note ---
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 supp Oxygen, now only 2l/min Will check oxygen sat on RA today Pulmonology following Metabolic encephalopathy -CT head negative -Continue Neuro checks -Neurology consulted and ruled out focal seizure, received IV Keppra in the ER -Hold Bacolfen d/t renal function - Possibly underlying psych issues also contributing - Mental health evaluation done hx schizophrenia and bipolar - Abilify 5 mg PO daily, psych following Agitation haldol prn -Hx Hypertension -BP uncontrolled. Continue to adjust medications as needed Hx Right subarachnoid hemorrhage, status post right frontal craniotomy Hx aneurysm, status post clipping -Continue supportive care -Neurology recommended outpatient follow Tobacco abuse -Current every day smoker -Counseled for cessation -Nicotine patch when necessary Thrombocytopenia. - cont to Monitor DVT PPX -SCD's Medically stable for SNF placement with dialysis, but needs Level 2 clearance. The high probability of a clinically significant, sudden or life threatening deterioration of the [CARDIAC, NEURO] system(s) required my full and direct attention, intervention and personal management. The aggregate critical care time was [35] minutes. This time is in addition to time spent performing reported procedures but includes the following: [X] Data Review and interpretation [X] Patient assessment and monitoring of vital signs [X] Documentation [X] Medication orders and management History Interval history: Patient seen and examined today, initially was lethargic , noted BP drop and rapid response called on the patient but responded appropriately Hospitalist Physical - Physical exam Narrative exam: Gen: Not in acute distress, lethargic, Reponsive HEENT: Normocephalic, atraumatic Neck: supple, no JVD Heart: S1 and S2 reg, no murmurs, rubs or gallop Lungs: Clear, no crackles Abd: soft, non tender, non distended, normal BS, Ext: No edema, no clubbing, no cyanosis Neuro: Awake, alert, no focal neurological signs - Constitutional Vitals: Temp Pulse Resp BP Pulse Ox 98.2 F 80 18 129/93 100 02/24/19 08:05 02/24/19 11:22 02/24/19 08:05 02/24/19 11:22 02/24/19 04:51 General appearance: Present: no acute distress, well-nourished Results - Labs CBC & Chem 7: 02/18/19 05:00 02/24/19 14:25 Labs: Laboratory Last Values WBC 8.6 K/mm3 (4.5-11.0) 02/18/19 05:00 RBC 3.31 M/mm3 (3.65-5.03) L 02/18/19 05:00 Hgb 9.4 gm/dl (11.8-15.2) L 02/18/19 05:00 Hct 28.7 % (35.5-45.6) L 02/18/19 05:00 MCV 87 fl (84-94) 02/18/19 05:00 MCH 28 pg (28-32) 02/18/19 05:00 MCHC 33 % (32-34) 02/18/19 05:00 RDW 13.9 % (13.2-15.2) 02/18/19 05:00 Plt Count 311 K/mm3 (140-440) 02/18/19 05:00 Lymph % (Auto) 11.9 % (13.4-35.0) L 02/18/19 05:00 [place] % (Auto) 8.6 % (0.0-7.3) H 02/18/19 05:00 Eos % (Auto) 4.5 % (0.0-4.3) H 02/18/19 05:00 Baso % (Auto) 0.5 % (0.0-1.8) 02/18/19 05:00 Lymph # 1.0 K/mm3 (1.2-5.4) L 02/18/19 05:00 [place] # 0.7 K/mm3 (0.0-0.8) 02/18/19 05:00 Eos # 0.4 K/mm3 (0.0-0.4) 02/18/19 05:00 Baso # 0.0 K/mm3 (0.0-0.1) 02/18/19 05:00 Seg Neutrophils % 74.5 % (40.0-70.0) H 02/18/19 05:00 Seg Neutrophils # 6.4 K/mm3 (1.8-7.7) 02/18/19 05:00 POC ABG pH 7.398 (7.35-7.45) 02/10/19 10:16 ABG pH 7.442 pH Units (7.350-7.450) 02/13/19 08:50 POC ABG pCO2 25.4 (35-45) L 02/10/19 10:16 ABG pCO2 27.9 mm Hg 02/13/19 08:50 ABG pO2 58.1 mm Hg (80.0-90.0) L 02/13/19 08:50 POC ABG HCO3 15.6 (22-26 mml/L) 02/10/19 10:16 ABG HCO3 18.6 mmol/L (20.0-26.0) L 02/13/19 08:50 POC ABG Total CO2 16 (23-27mmol/L) 02/10/19 10:16 POC ABG O2 Sat 76 02/10/19 10:16 ABG O2 Saturation 90.9 % (95.0-99.0) L 02/13/19 08:50 ABG O2 Content 11.3 (0.0-44) 02/13/19 08:50 POC ABG Base Excess -9 ((-2) - (+3)mmol/L) 02/10/19 10:16 ABG Base Excess -4.6 mmol/L (-2.0-3.0) L 02/13/19 08:50 ABG Hemoglobin 9.0 gm/dl (14.0-18.0) L 02/13/19 08:50 ABG Carboxyhemoglobin 2.0 % (0.0-5.0) 02/13/19 08:50 ABG Methemoglobin 0.6 % (0.0-1.5) 02/13/19 08:50 Oxyhemoglobin 88.6 % (95.0-99.0) L 02/13/19 08:50 FiO2 40 % 02/13/19 08:50 Sodium 139 mmol/L (137-145) 02/20/19 06:12 Potassium 4.3 mmol/L (3.6-5.0) 02/20/19 06:12 Chloride 95.8 mmol/L (98-107) L 02/20/19 06:12 Carbon Dioxide 22 mmol/L (22-30) 02/20/19 06:12 Anion Gap 26 mmol/L 02/20/19 06:12 BUN 84 mg/dL (9-20) H 02/20/19 06:12 Creatinine 9.5 mg/dL (0.8-1.5) H 02/20/19 06:12 Estimated GFR 7 ml/min 02/20/19 06:12 BUN/Creatinine Ratio 9 % 02/20/19 06:12 Glucose 99 mg/dL (75-100) 02/20/19 06:12 POC Glucose 74 (70-105) 02/23/19 13:21 Hemoglobin A1c < 4.0 % (4-6) L 02/07/19 07:41 Calcium 8.9 mg/dL (8.4-10.2) 02/20/19 06:12 Phosphorus 2.20 mg/dL (2.5-4.5) L 02/10/19 10:03 Magnesium 1.60 mg/dL (1.7-2.3) L 02/10/19 10:03 Total Bilirubin 0.40 mg/dL (0.1-1.2) 02/10/19 10:03 AST 27 units/L (5-40) 02/10/19 10:03 ALT 23 units/L (7-56) 02/10/19 10:03 Alkaline Phosphatase 70 units/L (35-129) 02/10/19 10:03 Ammonia 34.0 umol/L (25-60) 02/01/19 17:52 Total Creatine Kinase 66 units/L (55-170) 02/01/19 17:52 Total Protein 5.9 g/dL (6.3-8.2) L 02/10/19 10:03 Albumin 3.1 g/dL (3.9-5) L 02/10/19 10:03 Albumin/Globulin Ratio 1.1 % 02/10/19 10:03 Triglycerides 135 mg/dL (2-149) 02/07/19 07:41 Cholesterol 155 mg/dL (50-199) 02/07/19 07:41 LDL Cholesterol Direct 101 mg/dL (50-130) 02/07/19 07:41 HDL Cholesterol 39 mg/dL (40-59) L 02/07/19 07:41 Cholesterol/HDL Ratio 3.97 % 02/07/19 07:41 TSH 1.990 mlU/mL (0.270-4.200) 02/01/19 17:52 Urine Color Yellow (Yellow) 02/01/19 20:45 Urine Turbidity Slightly-cloudy (Clear) 02/01/19 20:45 Urine pH 5.0 (5.0-7.0) 02/01/19 20:45 Ur Specific [place] 1.013 (1.003-1.030) 02/01/19 20:45 Urine Protein >500 mg/dL (Negative) 02/01/19 20:45 Urine Glucose (UA) Neg mg/dL (Negative) 02/01/19 20:45 Urine Ketones Neg mg/dL (Negative) 02/01/19 20:45 Urine Blood Sm (Negative) 02/01/19 20:45 Urine Nitrite Neg (Negative) 02/01/19 20:45 Urine Bilirubin Neg (Negative) 02/01/19 20:45 Urine Urobilinogen < 2.0 mg/dL (<2.0) 02/01/19 20:45 Ur Leukocyte Esterase Neg (Negative) 02/01/19 20:45 Urine WBC (Auto) 2.0 /HPF (0.0-6.0) 02/01/19 20:45 Urine RBC (Auto) 3.0 /HPF (0.0-6.0) 02/01/19 20:45 U Epithel Cells (Auto) 1.0 /HPF (0-13.0) 02/01/19 20:45 Urine Bacteria (Auto) 1+ /HPF (Negative) 02/01/19 20:45 Urine Mucus Few /HPF 02/01/19 20:45 Urine Yeast (Budding) 1+ /HPF 02/01/19 20:45 Urine Eosinophils None seen (None Seen) 02/02/19 02:30 Urine Creatinine 115.8 mg/dL (0.1-20.0) H 02/02/19 02:30 Urine Sodium 99 mmol/L 02/02/19 02:30 Urine Total Protein 198 mg/dL (5-11.8) H 02/02/19 02:30 Salicylates < 0.3 mg/dL (2.8-20.0) L 02/01/19 17:52 Acetaminophen < 5.0 ug/mL (10.0-30.0) L 02/01/19 17:52 Plasma/Serum Alcohol < 0.01 % (0-0.07) 02/01/19 17:52 Hepatitis A IgM Ab Non-reactive (NonReactive) 02/15/19 16:41 Hep Bs Antigen Non-reactive (Negative) 02/15/19 16:41 Hep B Core IgM Ab Non-reactive (NonReactive) 02/15/19 16:41 Hepatitis C Antibody Non-reactive (NonReactive) 02/15/19 16:41 Active Medications - Current Medications Current Medications: Generic Name Dose Route Start Last Admin Trade Name Freq PRN Reason Stop Dose Admin Acetaminophen 650 mg 02/01/19 20:23 02/13/19 09:22 Tylenol PO 650 mg Q4H PRN Administration Pain MILD(1-3)/Fever >100.5/QUAN Amlodipine Besylate 10 mg 02/01/19 21:00 02/24/19 11:22 Amlodipine PO 10 mg QDAY ENOC Administration Aripiprazole 5 mg 02/06/19 13:00 02/24/19 09:15 Aripiprazole PO 5 mg QDAY ENOC Administration Carvedilol 6.25 mg 02/01/19 21:21 02/24/19 09:15 Coreg PO 6.25 mg BID ENOC Administration Clonidine HCl 0.2 mg 02/06/19 11:30 02/23/19 22:41 Catapres PO Not Given Q12HR ENOC Docusate Sodium 100 mg 02/01/19 22:00 02/24/19 09:15 Colace PO 100 mg BID ENOC Administration Haloperidol Lactate 5 mg 02/08/19 11:09 02/17/19 20:32 Haldol IM 5 mg Q6H PRN Administration Agitation Heparin Sodium (Porcine) 5,000 unit 02/11/19 22:00 02/24/19 09:26 Heparin SUB-Q 5,000 unit Q12HR ENOC Administration Hydralazine HCl 10 mg 02/01/19 20:12 02/07/19 22:55 Apresoline IV 10 mg Q4HR PRN Administration Blood Pressure Hydralazine HCl 100 mg 02/01/19 21:21 02/24/19 09:15 Apresoline PO 100 mg TID ENOC Administration Sodium Chloride 100 mls @ 999 mls/hr 02/23/19 09:00 Nacl 0.9% IV LOKESH PRN Hypotension Nicotine 14 mg 02/02/19 10:00 02/24/19 09:26 Habitrol TD 14 mg QDAY ENOC Administration Ondansetron HCl 4 mg 02/01/19 20:23 02/07/19 22:45 Zofran IV 4 mg Q8H PRN Administration Nausea And Vomiting Pantoprazole Sodium 40 mg 02/06/19 11:30 02/24/19 09:15 Protonix PO 40 mg QDAY ENOC Administration Sodium Chloride 10 ml 02/01/19 22:00 02/24/19 09:15 Sodium Chloride Flush Syringe 10 Ml IV 10 ml BID ENOC Administration Sodium Chloride 10 ml 02/01/19 20:23 02/18/19 05:35 Sodium Chloride Flush Syringe 10 Ml IV 10 ml PRN PRN Administration LINE FLUSH Nutrition/Malnutrition Assess - Dietary Evaluation Nutrition/Malnutrition Findings: Nutrition Notes Start: 02/03/19 09:42 Freq: Status: Active Protocol: Document 02/08/19 10:03 LP (Rec: 02/08/19 10:05 LP [id number]) Nutrition Notes Need for Assessment generated from: LOS Initial or Follow up Brief Note Subjective/Other Information Screen for LOS. Pt continues eating well. Consuming at least 75% of meals. Nutrition Intervention Revisit per MD consult or patient Sign Off request:
[2019-02-24] MEDS: cloNIDine 0.2 MG TAB PO SCH (12:00)
[2019-02-24] MEDS ORDERED: SODIUM CHLORIDE 0.9% 1000 ML 1,000 ML ONE (13:43)
--- NOTE | 2019-02-24 14:27 | Consultation ---
History of Present Illness Consult date: 02/24/19 Consult reason: hypotension History of present illness: This is a 58-year old male with multiple medical problems who was admitted 02/01 with altered mental status, uncontrolled hypertension and renal disease with progression to end stage renal disease. He has since been initiated on hemodialysis. His presenting ECG is sinus rhythm with LVH. Today, a code MET was called as the patient was noted lethargic and hypotensive. The nurse reports a blood pressure of 58/36. An ECG is sinus rhythm with peaked [place], likley in the setting of hyperkalemia. There were no labs done today. Patient is noted to be on amlodipine 10mg daily, carvedilol 6.25mg twice a day, clonidine 0.2 mg twice a day and hydralazine three time a day for hypertension m anagement. Clonidine and carvedilol has been stopped. Hydralazine dose has been decreased. A cardiac consultation has been requested for abnormal ECG. Past History Past Medical History: hypertension, renal failure, other (schizophrenia, bipolar, subarachnoid hemorrhage status post right frontal craniotomy, right aneurysm clip) Past Surgical History: Other (right frontal craniotomy, right aneurysm clipping (1994)) Social history: no significant social history Family history: no significant family history, other (father is alive and well in his 80s. Mother of complications of alcoholism) Medications and Allergies Allergies Allergy/AdvReac Type Severity Reaction Status Date / Time No Known Allergies Allergy Unverified 04/17/17 13:03 Home Medications Medication Instructions Recorded Confirmed Last Taken Type ARIPiprazole [Abilify] 20 mg PO QDAY 02/03/19 02/03/19 1 Day Ago History ~02/02/19 Losartan/Hydrochlorothiazide 1 each PO QDAY 02/03/19 02/03/19 Unknown History [Losartan-Hctz 100-25 mg Tab] Active Meds: Active Medications Acetaminophen (Tylenol) 650 mg PO Q4H PRN PRN Reason: Pain MILD(1-3)/Fever >100.5/QUAN Last Admin: 02/13/19 09:22 Dose: 650 mg Documented by: Amlodipine Besylate (Amlodipine) 10 mg PO QDAY [facility] Last Admin: 02/24/19 11:22 Dose: 10 mg Documented by: Aripiprazole (Aripiprazole) 5 mg PO QDAY [facility] Last Admin: 02/24/19 09:15 Dose: 5 mg Documented by: Docusate Sodium (Colace) 100 mg PO BID [facility] Last Admin: 02/24/19 09:15 Dose: 100 mg Documented by: Haloperidol Lactate (Haldol) 5 mg IM Q6H PRN PRN Reason: Agitation Last Admin: 02/17/19 20:32 Dose: 5 mg Documented by: Heparin Sodium (Porcine) (Heparin) 5,000 unit SUB-Q Q12HR [facility] Last Admin: 02/24/19 09:26 Dose: 5,000 unit Documented by: Hydralazine HCl (Apresoline) 10 mg IV Q4HR PRN PRN Reason: Blood Pressure Last Admin: 02/07/19 22:55 Dose: 10 mg Documented by: Hydralazine HCl (Apresoline) 50 mg PO TID [facility] Sodium Chloride (Nacl 0.9%) 100 mls @ 999 mls/hr IV LOKESH PRN PRN Reason: Hypotension Nicotine (Habitrol) 14 mg TD QDAY [facility] Last Admin: 02/24/19 09:26 Dose: 14 mg Documented by: Ondansetron HCl (Zofran) 4 mg IV Q8H PRN PRN Reason: Nausea And Vomiting Last Admin: 02/07/19 22:45 Dose: 4 mg Documented by: Pantoprazole Sodium (Protonix) 40 mg PO QDAY [facility] Last Admin: 02/24/19 09:15 Dose: 40 mg Documented by: Sodium Chloride (Sodium Chloride Flush Syringe 10 Ml) 10 ml IV BID [facility] Last Admin: 02/24/19 09:15 Dose: 10 ml Documented by: Sodium Chloride (Sodium Chloride Flush Syringe 10 Ml) 10 ml IV PRN PRN PRN Reason: LINE FLUSH Last Admin: 02/18/19 05:35 Dose: 10 ml Documented by: Physical Examination Vital Signs Temp Pulse Resp BP Pulse Ox 98.7 F 112 H 18 203/146 100 02/01/19 16:30 02/01/19 16:30 02/01/19 16:30 02/01/19 16:30 02/01/19 16:30 General appearance: no acute distress Cardiac: Positive: Reg Rate and Rhythm Lungs: Positive: Decreased Breath Sounds Results 02/18/19 05:00 02/20/19 06:12 Assessment and Plan Hypotensive -given IV bolus Clonidine and Carvedilol has been stopped. Abnormal ECG Altered mental status ESRD initiated on dialysis this admission Hx of right Sub-arachnoid hemorrhage s/p crainotomy and right aneurysm clipping Recommendations: Check potassium. Echocardiogram for LVEF assessment.
[2019-02-24 15:09] LABS: Calcium 8.2 mg/dL (8.4-10.2)
[2019-02-24 18:49] LABS: Creatine Kinase MB 1.6 ng/mL (0.0-4.0)
[2019-02-25 01:04] LABS: Creatine Kinase MB 1.9 ng/mL (0.0-4.0)
--- NOTE | 2019-02-25 09:30 | Progress Note ---
Assessment and Plan 1. Hypotension currently resolved probably iatrogenic. 2. End-stage renal disease 3. History of CVA status post right frontal craniotomy 4. Schizoaffective disorder bipolar type 5. Essential hypertension Plan. Patient appears back to his baseline. EKG shows sinus rhythm with LVH. Echocardiogram is pending. [place] traits essential hypertension as indicated. Subjective Date of service: 02/25/19 Principal diagnosis: acute kidney injury, Interval history: No cardiac symptoms Objective Vital Signs Temp Pulse Resp BP BP Pulse Ox 02/25/19 05:03 98.4 F 18 02/25/19 00:00 98.0 F 74 18 117/77 92 02/24/19 22:44 98 02/24/19 19:40 98.2 F 88 18 107/84 99 02/24/19 16:51 104/74 72 L 02/24/19 15:08 18 93/67 02/24/19 14:43 18 02/24/19 14:15 74 92/61 100 02/24/19 14:10 80 85/62 02/24/19 14:08 18 02/24/19 14:07 18 82/59 02/24/19 14:05 72 18 82/59 02/24/19 14:00 81/58 02/24/19 12:00 80 129/93 02/24/19 11:56 87 119/93 96 02/24/19 11:53 18 100 02/24/19 11:22 80 129/93 02/24/19 11:18 18 129/93 02/24/19 10:00 83 - Physical Examination General: Appears Well, No Apparent Distress HEENT: Negative: PERRL Neck: Positive: neck supple, trachea midline. Negative: JVD/HJR Cardiac: Positive: Regular Rate, S1/S2, PMI, Laterally Displaced. Negative: S3, S4 Lungs: Positive: clear to auscultation, No Wheeze, Rales, Rhonchi Extremities: Absent: edema - Labs and Meds Cardiac Enzymes 02/24/19 02/25/19 Range/Units 17:45 00:16 CK-MB (CK-2) 1.6 1.9 (0.0-4.0) ng/mL Comprehensive Metabolic Panel 02/24/19 Range/Units 14:25 Sodium 134 L (137-145) mmol/L Potassium 4.8 (3.6-5.0) mmol/L Chloride 93.9 L (98-107) mmol/L Carbon Dioxide 21 L (22-30) mmol/L BUN 70 H (9-20) mg/dL Creatinine 9.3 H (0.8-1.5) mg/dL Glucose 121 H (75-100) mg/dL Calcium 8.2 L (8.4-10.2) mg/dL - Allied health notes Allied health notes reviewed: nursing
[2019-02-25] MEDS: hydrALAZINE 100 MG TAB PO SCH ×4 (12:34→22:19)
[2019-02-25] MEDS: NICOTINE 14 MG/24 HR PATCH TD SCH (12:37)
--- NOTE | 2019-02-25 13:02 | Progress Note ---
Assessment and Plan - Patient Problems (1) Renal failure Current Visit: Yes Status: Chronic Qualifiers: Renal failure chronicity: unspecified chronicity Qualified Code(s): N19 - Unspecified kidney failure Plan to address problem: Patient has significant renal failure. Discussed with primary attending, and he has been started on hemodialysis at this time. He has a functioning right IJ PermCath. We will maintain him on a TTS inpatient hemodialysis schedule. Case management to work with outpatient dialysis placement. (2) Acute respiratory failure with hypoxia Current Visit: Yes Status: Acute Plan to address problem: Overall respiratory status has stabilized. We'll continue to challenge with ultrafiltration during hemodialysis.. (3) Hypertensive chronic kidney disease with stage 1 through stage 4 chronic kidney disease, or unspecified chronic kidney disease Current Visit: Yes Status: Chronic Plan to address problem: Continue to monitor blood pressures under current regimen. (4) Proteinuria Current Visit: Yes Status: Acute Plan to address problem: Non nephrotic range proteinuria. Will continue to monitor. (5) Schizoaffective disorder Current Visit: Yes Status: Chronic Plan to address problem: Management per primary attending Subjective Date of service: 02/25/19 Principal diagnosis: acute kidney injury, Interval history: No acute issues overnight. Plan for HD today. Objective - Vital Signs Vital signs: Vital Signs - 12hr 02/25/19 05:03 Temperature 98.4 F Respiratory 18 Rate - General Appearance General appearance: appears stated age, chronically ill, frail EENT: ATNC, PERRL Neck: no JVD, no thyromegaly Respiratory: Present: Clear to Ascultation Cardiology: regular, S1S2 Gastrointestinal: normal, normoactive bowel sounds Integumentary: no rash, warm and dry Neurologic: confused, disoriented Musculoskeletal: deferred Psychiatric: cooperative - Lab 02/18/19 05:00 02/24/19 14:25 Most recent lab results ABG pH 7.442 pH Units (7.350-7.450) 02/13/19 08:50 ABG pCO2 27.9 mm Hg 02/13/19 08:50 ABG pO2 58.1 mm Hg (80.0-90.0) L 02/13/19 08:50 ABG HCO3 18.6 mmol/L (20.0-26.0) L 02/13/19 08:50 ABG O2 Saturation 90.9 % (95.0-99.0) L 02/13/19 08:50 Calcium 8.2 mg/dL (8.4-10.2) L 02/24/19 14:25 Phosphorus 2.20 mg/dL (2.5-4.5) L 02/10/19 10:03 Magnesium 1.60 mg/dL (1.7-2.3) L 02/10/19 10:03 Urine Creatinine 115.8 mg/dL (0.1-20.0) H 02/02/19 02:30 Urine Sodium 99 mmol/L 02/02/19 02:30 Urine Total Protein 198 mg/dL (5-11.8) H 02/02/19 02:30 - Allied health notes Allied health notes reviewed: nursing Medications & Allergies - Medications Allergies/Adverse Reactions: Allergies No Known Allergies Allergy (Unverified 04/17/17 13:03) Home Medications: Home Medications Medication Instructions Recorded Confirmed Last Taken Type ARIPiprazole [Abilify] 20 mg PO QDAY 02/03/19 02/03/19 1 Day Ago History ~02/02/19 Losartan/Hydrochlorothiazide 1 each PO QDAY 02/03/19 02/03/19 Unknown History [Losartan-Hctz 100-25 mg Tab] Active Medications: Generic Name Dose Route Start Last Admin Trade Name Freq PRN Reason Stop Dose Admin Acetaminophen 650 mg 02/01/19 20:23 02/13/19 09:22 Tylenol PO 650 mg Q4H PRN Administration Pain MILD(1-3)/Fever >100.5/QUAN Amlodipine Besylate 10 mg 02/01/19 21:00 02/24/19 11:22 Amlodipine PO 10 mg QDAY ENOC Administration Aripiprazole 5 mg 02/06/19 13:00 02/24/19 09:15 Aripiprazole PO 5 mg QDAY ENOC Administration Docusate Sodium 100 mg 02/01/19 22:00 02/24/19 21:48 Colace PO 100 mg BID ENOC Administration Haloperidol Lactate 5 mg 02/08/19 11:09 02/17/19 20:32 Haldol IM 5 mg Q6H PRN Administration Agitation Heparin Sodium (Porcine) 5,000 unit 02/11/19 22:00 02/24/19 21:47 Heparin SUB-Q 5,000 unit Q12HR ENOC Administration Hydralazine HCl 10 mg 02/01/19 20:12 02/07/19 22:55 Apresoline IV 10 mg Q4HR PRN Administration Blood Pressure Hydralazine HCl 50 mg 02/24/19 14:05 02/24/19 21:48 Apresoline PO 50 mg TID ENOC Administration Sodium Chloride 100 mls @ 999 mls/hr 02/23/19 09:00 Nacl 0.9% IV LOKESH PRN Hypotension Nicotine 14 mg 02/02/19 10:00 02/25/19 12:37 Habitrol TD 14 mg QDAY ENOC Administration Ondansetron HCl 4 mg 02/01/19 20:23 02/07/19 22:45 Zofran IV 4 mg Q8H PRN Administration Nausea And Vomiting Pantoprazole Sodium 40 mg 02/06/19 11:30 02/24/19 09:15 Protonix PO 40 mg QDAY ENOC Administration Sodium Chloride 10 ml 02/01/19 22:00 02/25/19 12:37 Sodium Chloride Flush Syringe 10 Ml IV 10 ml BID ENOC Administration Sodium Chloride 10 ml 02/01/19 20:23 02/18/19 05:35 Sodium Chloride Flush Syringe 10 Ml IV 10 ml PRN PRN Administration LINE FLUSH
--- NOTE | 2019-02-25 13:12 | Progress Note ---
Assessment and Plan Assessment and plan: Hypotension-resolved -Echo pending -Pressure medications adjusted -Cardiology following no invasive cardiac work-up planned at this time. MIKEL on CKD 4 - vasomotor nephropathy versus progression of underlying chronic medical disease -Cr on admission 7.5 -CT abdomen and pelvis showed Indeterminant renal masses -Avoid nephrotoxic agents -Renally dose all meds -Nephrology initiated hemdialysis on 02/17 Acute respiratory failure with hypoxia Cont. supp Oxygen, now only 2l/min Will check oxygen sat on RA today Pulmonology following Metabolic encephalopathy -CT head negative -Continue Neuro checks -Neurology consulted and ruled out focal seizure, received IV Keppra in the ER -Hold Bacolfen d/t renal function - Possibly underlying psych issues also contributing - Mental health evaluation done hx schizophrenia and bipolar - Abilify 5 mg PO daily, psych following Agitation haldol prn -Hx Hypertension -BP uncontrolled. Continue to adjust medications as needed Hx Right subarachnoid hemorrhage, status post right frontal craniotomy Hx aneurysm, status post clipping -Continue supportive care -Neurology recommended outpatient follow Tobacco abuse -Current every day smoker -Counseled for cessation -Nicotine patch when necessary Thrombocytopenia. - cont to Monitor DVT PPX -SCD's Medically stable for SNF placement with dialysis, but needs Level 2 clearance. History Interval history: Patient seen and examined today, no new complaints today blood pressure has responded well patient appropriate answering questions although still lethargic but much improved compared to yesterday. Hospitalist Physical - Physical exam Narrative exam: Gen: Not in acute distress,, Responsive HEENT: Normocephalic, atraumatic Neck: supple, no JVD Heart: S1 and S2 reg, no murmurs, rubs or gallop Lungs: Clear, no crackles Abd: soft, non tender, non distended, normal BS, Ext: No edema, no clubbing, no cyanosis Neuro: Awake, alert, no focal neurological signs - Constitutional Vitals: Temp Pulse Resp BP Pulse Ox 98.4 F 74 18 117/77 92 02/25/19 05:03 02/25/19 00:00 02/25/19 05:03 02/25/19 00:00 02/25/19 00:00 General appearance: Present: no acute distress, well-nourished Results - Labs CBC & Chem 7: 02/18/19 05:00 02/24/19 14:25 Labs: Laboratory Last Values WBC 8.6 K/mm3 (4.5-11.0) 02/18/19 05:00 RBC 3.31 M/mm3 (3.65-5.03) L 02/18/19 05:00 Hgb 9.4 gm/dl (11.8-15.2) L 02/18/19 05:00 Hct 28.7 % (35.5-45.6) L 02/18/19 05:00 MCV 87 fl (84-94) 02/18/19 05:00 MCH 28 pg (28-32) 02/18/19 05:00 MCHC 33 % (32-34) 02/18/19 05:00 RDW 13.9 % (13.2-15.2) 02/18/19 05:00 Plt Count 311 K/mm3 (140-440) 02/18/19 05:00 Lymph % (Auto) 11.9 % (13.4-35.0) L 02/18/19 05:00 [place] % (Auto) 8.6 % (0.0-7.3) H 02/18/19 05:00 Eos % (Auto) 4.5 % (0.0-4.3) H 02/18/19 05:00 Baso % (Auto) 0.5 % (0.0-1.8) 02/18/19 05:00 Lymph # 1.0 K/mm3 (1.2-5.4) L 02/18/19 05:00 [place] # 0.7 K/mm3 (0.0-0.8) 02/18/19 05:00 Eos # 0.4 K/mm3 (0.0-0.4) 02/18/19 05:00 Baso # 0.0 K/mm3 (0.0-0.1) 02/18/19 05:00 Seg Neutrophils % 74.5 % (40.0-70.0) H 02/18/19 05:00 Seg Neutrophils # 6.4 K/mm3 (1.8-7.7) 02/18/19 05:00 POC ABG pH 7.398 (7.35-7.45) 02/10/19 10:16 ABG pH 7.442 pH Units (7.350-7.450) 02/13/19 08:50 POC ABG pCO2 25.4 (35-45) L 02/10/19 10:16 ABG pCO2 27.9 mm Hg 02/13/19 08:50 ABG pO2 58.1 mm Hg (80.0-90.0) L 02/13/19 08:50 POC ABG HCO3 15.6 (22-26 mml/L) 02/10/19 10:16 ABG HCO3 18.6 mmol/L (20.0-26.0) L 02/13/19 08:50 POC ABG Total CO2 16 (23-27mmol/L) 02/10/19 10:16 POC ABG O2 Sat 76 02/10/19 10:16 ABG O2 Saturation 90.9 % (95.0-99.0) L 02/13/19 08:50 ABG O2 Content 11.3 (0.0-44) 02/13/19 08:50 POC ABG Base Excess -9 ((-2) - (+3)mmol/L) 02/10/19 10:16 ABG Base Excess -4.6 mmol/L (-2.0-3.0) L 02/13/19 08:50 ABG Hemoglobin 9.0 gm/dl (14.0-18.0) L 02/13/19 08:50 ABG Carboxyhemoglobin 2.0 % (0.0-5.0) 02/13/19 08:50 ABG Methemoglobin 0.6 % (0.0-1.5) 02/13/19 08:50 Oxyhemoglobin 88.6 % (95.0-99.0) L 02/13/19 08:50 FiO2 40 % 02/13/19 08:50 Sodium 134 mmol/L (137-145) L 02/24/19 14:25 Potassium 4.8 mmol/L (3.6-5.0) 02/24/19 14:25 Chloride 93.9 mmol/L (98-107) L 02/24/19 14:25 Carbon Dioxide 21 mmol/L (22-30) L 02/24/19 14:25 Anion Gap 24 mmol/L 02/24/19 14:25 BUN 70 mg/dL (9-20) H 02/24/19 14:25 Creatinine 9.3 mg/dL (0.8-1.5) H 02/24/19 14:25 Estimated GFR 7 ml/min 02/24/19 14:25 BUN/Creatinine Ratio 8 % 02/24/19 14:25 Glucose 121 mg/dL (75-100) H 02/24/19 14:25 POC Glucose 118 (70-105) H 02/24/19 13:46 Hemoglobin A1c < 4.0 % (4-6) L 02/07/19 07:41 Calcium 8.2 mg/dL (8.4-10.2) L 02/24/19 14:25 Phosphorus 2.20 mg/dL (2.5-4.5) L 02/10/19 10:03 Magnesium 1.60 mg/dL (1.7-2.3) L 02/10/19 10:03 Total Bilirubin 0.40 mg/dL (0.1-1.2) 02/10/19 10:03 AST 27 units/L (5-40) 02/10/19 10:03 ALT 23 units/L (7-56) 02/10/19 10:03 Alkaline Phosphatase 70 units/L (35-129) 02/10/19 10:03 Ammonia 34.0 umol/L (25-60) 02/01/19 17:52 Total Creatine Kinase 88 units/L (55-170) 02/25/19 00:16 CK-MB (CK-2) 1.9 ng/mL (0.0-4.0) 02/25/19 00:16 CK-MB (CK-2) Rel Index 2.1 (0-4) 02/25/19 00:16 Troponin T 0.134 ng/mL (0.00-0.029) H* 02/25/19 00:16 Total Protein 5.9 g/dL (6.3-8.2) L 02/10/19 10:03 Albumin 3.1 g/dL (3.9-5) L 02/10/19 10:03 Albumin/Globulin Ratio 1.1 % 02/10/19 10:03 Triglycerides 135 mg/dL (2-149) 02/07/19 07:41 Cholesterol 155 mg/dL (50-199) 02/07/19 07:41 LDL Cholesterol Direct 101 mg/dL (50-130) 02/07/19 07:41 HDL Cholesterol 39 mg/dL (40-59) L 02/07/19 07:41 Cholesterol/HDL Ratio 3.97 % 02/07/19 07:41 TSH 1.990 mlU/mL (0.270-4.200) 02/01/19 17:52 Urine Color Yellow (Yellow) 02/01/19 20:45 Urine Turbidity Slightly-cloudy (Clear) 02/01/19 20:45 Urine pH 5.0 (5.0-7.0) 02/01/19 20:45 Ur Specific [place] 1.013 (1.003-1.030) 02/01/19 20:45 Urine Protein >500 mg/dL (Negative) 02/01/19 20:45 Urine Glucose (UA) Neg mg/dL (Negative) 02/01/19 20:45 Urine Ketones Neg mg/dL (Negative) 02/01/19 20:45 Urine Blood Sm (Negative) 02/01/19 20:45 Urine Nitrite Neg (Negative) 02/01/19 20:45 Urine Bilirubin Neg (Negative) 02/01/19 20:45 Urine Urobilinogen < 2.0 mg/dL (<2.0) 02/01/19 20:45 Ur Leukocyte Esterase Neg (Negative) 02/01/19 20:45 Urine WBC (Auto) 2.0 /HPF (0.0-6.0) 02/01/19 20:45 Urine RBC (Auto) 3.0 /HPF (0.0-6.0) 02/01/19 20:45 U Epithel Cells (Auto) 1.0 /HPF (0-13.0) 02/01/19 20:45 Urine Bacteria (Auto) 1+ /HPF (Negative) 02/01/19 20:45 Urine Mucus Few /HPF 02/01/19 20:45 Urine Yeast (Budding) 1+ /HPF 02/01/19 20:45 Urine Eosinophils None seen (None Seen) 02/02/19 02:30 Urine Creatinine 115.8 mg/dL (0.1-20.0) H 02/02/19 02:30 Urine Sodium 99 mmol/L 02/02/19 02:30 Urine Total Protein 198 mg/dL (5-11.8) H 02/02/19 02:30 Salicylates < 0.3 mg/dL (2.8-20.0) L 02/01/19 17:52 Acetaminophen < 5.0 ug/mL (10.0-30.0) L 02/01/19 17:52 Plasma/Serum Alcohol < 0.01 % (0-0.07) 02/01/19 17:52 Hepatitis A IgM Ab Non-reactive (NonReactive) 02/15/19 16:41 Hep Bs Antigen Non-reactive (Negative) 02/15/19 16:41 Hep B Core IgM Ab Non-reactive (NonReactive) 02/15/19 16:41 Hepatitis C Antibody Non-reactive (NonReactive) 02/15/19 16:41 Active Medications - Current Medications Current Medications: Generic Name Dose Route Start Last Admin Trade Name Freq PRN Reason Stop Dose Admin Acetaminophen 650 mg 02/01/19 20:23 02/13/19 09:22 Tylenol PO 650 mg Q4H PRN Administration Pain MILD(1-3)/Fever >100.5/QUAN Amlodipine Besylate 10 mg 02/01/19 21:00 02/24/19 11:22 Amlodipine PO 10 mg QDAY ENOC Administration Aripiprazole 5 mg 02/06/19 13:00 02/24/19 09:15 Aripiprazole PO 5 mg QDAY ENOC Administration Docusate Sodium 100 mg 02/01/19 22:00 02/24/19 21:48 Colace PO 100 mg BID ENOC Administration Haloperidol Lactate 5 mg 02/08/19 11:09 02/17/19 20:32 Haldol IM 5 mg Q6H PRN Administration Agitation Heparin Sodium (Porcine) 5,000 unit 02/11/19 22:00 02/24/19 21:47 Heparin SUB-Q 5,000 unit Q12HR ENOC Administration Hydralazine HCl 10 mg 02/01/19 20:12 02/07/19 22:55 Apresoline IV 10 mg Q4HR PRN Administration Blood Pressure Hydralazine HCl 50 mg 02/24/19 14:05 02/24/19 21:48 Apresoline PO 50 mg TID ENOC Administration Sodium Chloride 100 mls @ 999 mls/hr 02/23/19 09:00 Nacl 0.9% IV LOKESH PRN Hypotension Nicotine 14 mg 02/02/19 10:00 02/25/19 12:37 Habitrol TD 14 mg QDAY ENOC Administration Ondansetron HCl 4 mg 02/01/19 20:23 02/07/19 22:45 Zofran IV 4 mg Q8H PRN Administration Nausea And Vomiting Pantoprazole Sodium 40 mg 02/06/19 11:30 02/24/19 09:15 Protonix PO 40 mg QDAY ENOC Administration Sodium Chloride 10 ml 02/01/19 22:00 02/25/19 12:37 Sodium Chloride Flush Syringe 10 Ml IV 10 ml BID ENOC Administration Sodium Chloride 10 ml 02/01/19 20:23 02/18/19 05:35 Sodium Chloride Flush Syringe 10 Ml IV 10 ml PRN PRN Administration LINE FLUSH Nutrition/Malnutrition Assess - Dietary Evaluation Nutrition/Malnutrition Findings: Nutrition Notes Start: 02/03/19 09:42 Freq: Status: Active Protocol: Document 02/08/19 10:03 LP (Rec: 02/08/19 10:05 LP [id number]) Nutrition Notes Need for Assessment generated from: LOS Initial or Follow up Brief Note Subjective/Other Information Screen for LOS. Pt continues eating well. Consuming at least 75% of meals. Nutrition Intervention Revisit per MD consult or patient Sign Off request:
[2019-02-25] MEDS ORDERED: SODIUM CHLORIDE*PRIMING MACHINE ONLY FOR DIALYSIS MC ONE (13:26)
[2019-02-25] MEDS: HEPARIN 5,000 UNIT/1 ML VIAL SUB-Q SCH ×2 (17:21→22:19)
[2019-02-25] MEDS: DOCUSATE SODIUM 100 MG CAP PO SCH ×2 (17:21→22:20)
[2019-02-25] MEDS: ARIPiprazole 5 MG TAB PO SCH (22:18)
[2019-02-25] MEDS: amLODIPine 10 MG TAB PO SCH (22:19)
[2019-02-25] MEDS: PANTOPRAZOLE 40 MG TAB PO SCH (22:19)
--- NOTE | 2019-02-26 10:17 | Progress Note ---
Assessment and Plan 1. Hypotension currently resolved probably iatrogenic. 2. End-stage renal disease 3. History of CVA status post right frontal craniotomy 4. Schizoaffective disorder bipolar type 5. Essential hypertension Echocardiogram: Severe concentric LVH with normal global function LVEF 60% Plan. Patient appears back to his baseline. Continue conservative management. No further cardiac workkup planned. Subjective Date of service: 02/26/19 Principal diagnosis: acute kidney injury, Interval history: No cardiac symptoms Objective Vital Signs Temp Pulse Pulse Resp BP Pulse Ox Pulse Ox 02/26/19 09:19 97 02/26/19 08:29 99.7 F H 94 H 18 127/83 98 02/26/19 07:56 77 02/26/19 03:58 98.0 F 20 124/87 02/26/19 01:13 128/96 02/25/19 23:29 98.0 F 110 H 18 138/100 100 02/25/19 22:19 115 H 129/96 02/25/19 22:00 100 02/25/19 19:39 98.0 F 115 H 18 129/96 98 02/25/19 18:45 98.0 F 98 H 18 138/98 02/25/19 18:30 98 H 139/100 02/25/19 18:15 98 H 125/97 02/25/19 18:00 98 H 139/96 02/25/19 17:45 104 H 134/97 02/25/19 17:30 89 148/106 02/25/19 17:15 113 H 150/99 02/25/19 17:00 96 H 133/100 02/25/19 16:45 100 H 124/100 02/25/19 16:30 97 H 137/102 02/25/19 16:15 98 H 166/90 02/25/19 16:00 109 H 139/101 02/25/19 15:45 93 H 135/101 02/25/19 15:30 98.4 F 93 H 18 130/98 97 02/25/19 12:15 97.9 F 121 H 18 160/118 98 - Physical Examination General: Appears Well, No Apparent Distress HEENT: Negative: PERRL Neck: Positive: neck supple, trachea midline. Negative: JVD/HJR Cardiac: Positive: Reg Rate and Rhythm, Regular Rate, S1/S2, PMI, Laterally Displaced Lungs: Positive: clear to auscultation, No Wheeze, Rales, Rhonchi Extremities: Absent: edema - Allied health notes Allied health notes reviewed: nursing
[2019-02-26] MEDS: DOCUSATE SODIUM 100 MG CAP PO SCH ×2 (11:09→21:19)
[2019-02-26] MEDS: NICOTINE 14 MG/24 HR PATCH TD SCH (11:09)
[2019-02-26] MEDS: PANTOPRAZOLE 40 MG TAB PO SCH (11:09)
[2019-02-26] MEDS: amLODIPine 10 MG TAB PO SCH (11:09)
[2019-02-26] MEDS: HEPARIN 5,000 UNIT/1 ML VIAL SUB-Q SCH ×2 (11:10→21:14)
[2019-02-26] MEDS: hydrALAZINE 100 MG TAB PO SCH ×3 (11:44→21:14)
[2019-02-26] MEDS: ARIPiprazole 5 MG TAB PO SCH (12:13)
--- NOTE | 2019-02-26 13:20 | Progress Note ---
Assessment and Plan - Patient Problems (1) Renal failure Current Visit: Yes Status: Chronic Qualifiers: Renal failure chronicity: unspecified chronicity Qualified Code(s): N19 - Unspecified kidney failure Plan to address problem: Patient has significant renal failure. Discussed with primary attending, and he has been started on hemodialysis at this time. He has a functioning right IJ PermCath. We will maintain him on a TTS inpatient hemodialysis schedule. Case management to work with outpatient dialysis placement. (2) Acute respiratory failure with hypoxia Current Visit: Yes Status: Acute Plan to address problem: Overall respiratory status has stabilized. We'll continue to challenge with ultrafiltration during hemodialysis.. (3) Hypertensive chronic kidney disease with stage 1 through stage 4 chronic kidney disease, or unspecified chronic kidney disease Current Visit: Yes Status: Chronic Plan to address problem: Continue to monitor blood pressures under current regimen. (4) Proteinuria Current Visit: Yes Status: Acute Plan to address problem: Non nephrotic range proteinuria. Will continue to monitor. (5) Schizoaffective disorder Current Visit: Yes Status: Chronic Plan to address problem: Management per primary attending Subjective Date of service: 02/26/19 Principal diagnosis: acute kidney injury, Interval history: No acute issues overnight. Objective - Vital Signs Vital signs: Vital Signs - 12hr 02/26/19 02/26/19 02/26/19 03:58 07:56 08:29 Temperature 98.0 F 99.7 F H Pulse Rate 94 H Pulse Rate [ 77 From Monitor] Respiratory 20 18 Rate Blood Pressure 124/87 127/83 O2 Sat by Pulse 98 Oximetry 02/26/19 09:19 Temperature Pulse Rate Pulse Rate [ From Monitor] Respiratory Rate Blood Pressure O2 Sat by Pulse 97 Oximetry - General Appearance General appearance: appears stated age, chronically ill EENT: ATNC Neck: no JVD, no thyromegaly Respiratory: Present: Clear to Ascultation Cardiology: regular, S1S2 Gastrointestinal: normal, normoactive bowel sounds Integumentary: no rash, warm and dry Neurologic: no focal deficit, confused Psychiatric: mood/affect appropriate - Lab 02/18/19 05:00 02/24/19 14:25 Most recent lab results ABG pH 7.442 pH Units (7.350-7.450) 02/13/19 08:50 ABG pCO2 27.9 mm Hg 02/13/19 08:50 ABG pO2 58.1 mm Hg (80.0-90.0) L 02/13/19 08:50 ABG HCO3 18.6 mmol/L (20.0-26.0) L 02/13/19 08:50 ABG O2 Saturation 90.9 % (95.0-99.0) L 02/13/19 08:50 Calcium 8.2 mg/dL (8.4-10.2) L 02/24/19 14:25 Phosphorus 2.20 mg/dL (2.5-4.5) L 02/10/19 10:03 Magnesium 1.60 mg/dL (1.7-2.3) L 02/10/19 10:03 Urine Creatinine 115.8 mg/dL (0.1-20.0) H 02/02/19 02:30 Urine Sodium 99 mmol/L 02/02/19 02:30 Urine Total Protein 198 mg/dL (5-11.8) H 02/02/19 02:30 - Imaging Chest x-ray: report reviewed - Allied health notes Allied health notes reviewed: nursing Medications & Allergies - Medications Allergies/Adverse Reactions: Allergies No Known Allergies Allergy (Unverified 04/17/17 13:03) Home Medications: Home Medications Medication Instructions Recorded Confirmed Last Taken Type ARIPiprazole [Abilify] 20 mg PO QDAY 02/03/19 02/03/19 1 Day Ago History ~02/02/19 Losartan/Hydrochlorothiazide 1 each PO QDAY 02/03/19 02/03/19 Unknown History [Losartan-Hctz 100-25 mg Tab] Active Medications: Generic Name Dose Route Start Last Admin Trade Name Claudia PRN Reason Stop Dose Admin Acetaminophen 650 mg 02/01/19 20:23 02/13/19 09:22 Tylenol PO 650 mg Q4H PRN Administration Pain MILD(1-3)/Fever >100.5/QUAN Amlodipine Besylate 10 mg 02/01/19 21:00 02/26/19 11:09 Amlodipine PO 10 mg QDAY ENOC Administration Aripiprazole 5 mg 02/06/19 13:00 02/26/19 12:13 Aripiprazole PO 5 mg QDAY ENOC Administration Docusate Sodium 100 mg 02/01/19 22:00 02/26/19 11:09 Colace PO 100 mg BID ENOC Administration Haloperidol Lactate 5 mg 02/08/19 11:09 02/17/19 20:32 Haldol IM 5 mg Q6H PRN Administration Agitation Heparin Sodium (Porcine) 5,000 unit 02/11/19 22:00 02/26/19 11:10 Heparin SUB-Q 5,000 unit Q12HR ENOC Administration Hydralazine HCl 10 mg 02/01/19 20:12 02/07/19 22:55 Apresoline IV 10 mg Q4HR PRN Administration Blood Pressure Hydralazine HCl 50 mg 02/24/19 14:05 02/26/19 11:44 Apresoline PO Not Given TID ENOC Sodium Chloride 100 mls @ 999 mls/hr 02/23/19 09:00 Nacl 0.9% IV LOKESH PRN Hypotension Nicotine 14 mg 02/02/19 10:00 02/26/19 11:09 Habitrol TD 14 mg QDAY ENOC Administration Ondansetron HCl 4 mg 02/01/19 20:23 02/07/19 22:45 Zofran IV 4 mg Q8H PRN Administration Nausea And Vomiting Pantoprazole Sodium 40 mg 02/06/19 11:30 02/26/19 11:09 Protonix PO 40 mg QDAY ENOC Administration Sodium Chloride 10 ml 02/01/19 22:00 02/26/19 11:12 Sodium Chloride Flush Syringe 10 Ml IV 10 ml BID ENOC Administration Sodium Chloride 10 ml 02/01/19 20:23 02/18/19 05:35 Sodium Chloride Flush Syringe 10 Ml IV 10 ml PRN PRN Administration LINE FLUSH
--- NOTE | 2019-02-26 15:16 | Progress Note ---
Assessment and Plan Assessment and plan: Hypotension-resolved -Echo pending -Pressure medications adjusted -Cardiology following no invasive cardiac work-up planned at this time. MIKEL on CKD 4 - vasomotor nephropathy versus progression of underlying chronic medical disease -Cr on admission 7.5 -CT abdomen and pelvis showed Indeterminant renal masses -Avoid nephrotoxic agents -Renally dose all meds -Nephrology initiated hemdialysis on 02/17 Acute respiratory failure with hypoxia Cont. supp Oxygen, now only 2l/min Will check oxygen sat on RA today Pulmonology following Metabolic encephalopathy -CT head negative -Continue Neuro checks -Neurology consulted and ruled out focal seizure, received IV Keppra in the ER -Hold Bacolfen d/t renal function - Possibly underlying psych issues also contributing - Mental health evaluation done hx schizophrenia and bipolar - Abilify 5 mg PO daily, psych following Agitation haldol prn -Hx Hypertension -BP uncontrolled. Continue to adjust medications as needed Hx Right subarachnoid hemorrhage, status post right frontal craniotomy Hx aneurysm, status post clipping -Continue supportive care -Neurology recommended outpatient follow Tobacco abuse -Current every day smoker -Counseled for cessation -Nicotine patch when necessary Thrombocytopenia. - cont to Monitor DVT PPX -SCD's Medically stable for SNF placement with dialysis, but needs Level 2 clearance. Discussed with Nurse to ambulate pateint History Interval history: Patient seen and examined today, no new complaints today Hospitalist Physical - Physical exam Narrative exam: Gen: Not in acute distress,, Responsive HEENT: Normocephalic, atraumatic Neck: supple, no JVD Heart: S1 and S2 reg, no murmurs, rubs or gallop Lungs: Clear, no crackles Abd: soft, non tender, non distended, normal BS, Ext: No edema, no clubbing, no cyanosis Neuro: Awake, alert, no focal neurological signs - Constitutional Vitals: Temp Pulse Resp BP Pulse Ox 99.7 F H 94 H 18 127/83 97 02/26/19 08:29 02/26/19 08:29 02/26/19 08:29 02/26/19 08:29 02/26/19 09:19 General appearance: Present: no acute distress, well-nourished Results - Labs CBC & Chem 7: 02/18/19 05:00 02/24/19 14:25 Labs: Laboratory Last Values WBC 8.6 K/mm3 (4.5-11.0) 02/18/19 05:00 RBC 3.31 M/mm3 (3.65-5.03) L 02/18/19 05:00 Hgb 9.4 gm/dl (11.8-15.2) L 02/18/19 05:00 Hct 28.7 % (35.5-45.6) L 02/18/19 05:00 MCV 87 fl (84-94) 02/18/19 05:00 MCH 28 pg (28-32) 02/18/19 05:00 MCHC 33 % (32-34) 02/18/19 05:00 RDW 13.9 % (13.2-15.2) 02/18/19 05:00 Plt Count 311 K/mm3 (140-440) 02/18/19 05:00 Lymph % (Auto) 11.9 % (13.4-35.0) L 02/18/19 05:00 Garden % (Auto) 8.6 % (0.0-7.3) H 02/18/19 05:00 Eos % (Auto) 4.5 % (0.0-4.3) H 02/18/19 05:00 Baso % (Auto) 0.5 % (0.0-1.8) 02/18/19 05:00 Lymph # 1.0 K/mm3 (1.2-5.4) L 02/18/19 05:00 Garden # 0.7 K/mm3 (0.0-0.8) 02/18/19 05:00 Eos # 0.4 K/mm3 (0.0-0.4) 02/18/19 05:00 Baso # 0.0 K/mm3 (0.0-0.1) 02/18/19 05:00 Seg Neutrophils % 74.5 % (40.0-70.0) H 02/18/19 05:00 Seg Neutrophils # 6.4 K/mm3 (1.8-7.7) 02/18/19 05:00 POC ABG pH 7.398 (7.35-7.45) 02/10/19 10:16 ABG pH 7.442 pH Units (7.350-7.450) 02/13/19 08:50 POC ABG pCO2 25.4 (35-45) L 02/10/19 10:16 ABG pCO2 27.9 mm Hg 02/13/19 08:50 ABG pO2 58.1 mm Hg (80.0-90.0) L 02/13/19 08:50 POC ABG HCO3 15.6 (22-26 mml/L) 02/10/19 10:16 ABG HCO3 18.6 mmol/L (20.0-26.0) L 02/13/19 08:50 POC ABG Total CO2 16 (23-27mmol/L) 02/10/19 10:16 POC ABG O2 Sat 76 02/10/19 10:16 ABG O2 Saturation 90.9 % (95.0-99.0) L 02/13/19 08:50 ABG O2 Content 11.3 (0.0-44) 02/13/19 08:50 POC ABG Base Excess -9 ((-2) - (+3)mmol/L) 02/10/19 10:16 ABG Base Excess -4.6 mmol/L (-2.0-3.0) L 02/13/19 08:50 ABG Hemoglobin 9.0 gm/dl (14.0-18.0) L 02/13/19 08:50 ABG Carboxyhemoglobin 2.0 % (0.0-5.0) 02/13/19 08:50 ABG Methemoglobin 0.6 % (0.0-1.5) 02/13/19 08:50 Oxyhemoglobin 88.6 % (95.0-99.0) L 02/13/19 08:50 FiO2 40 % 02/13/19 08:50 Sodium 134 mmol/L (137-145) L 02/24/19 14:25 Potassium 4.8 mmol/L (3.6-5.0) 02/24/19 14:25 Chloride 93.9 mmol/L (98-107) L 02/24/19 14:25 Carbon Dioxide 21 mmol/L (22-30) L 02/24/19 14:25 Anion Gap 24 mmol/L 02/24/19 14:25 BUN 70 mg/dL (9-20) H 02/24/19 14:25 Creatinine 9.3 mg/dL (0.8-1.5) H 02/24/19 14:25 Estimated GFR 7 ml/min 02/24/19 14:25 BUN/Creatinine Ratio 8 % 02/24/19 14:25 Glucose 121 mg/dL (75-100) H 02/24/19 14:25 POC Glucose 118 (70-105) H 02/24/19 13:46 Hemoglobin A1c < 4.0 % (4-6) L 02/07/19 07:41 Calcium 8.2 mg/dL (8.4-10.2) L 02/24/19 14:25 Phosphorus 2.20 mg/dL (2.5-4.5) L 02/10/19 10:03 Magnesium 1.60 mg/dL (1.7-2.3) L 02/10/19 10:03 Total Bilirubin 0.40 mg/dL (0.1-1.2) 02/10/19 10:03 AST 27 units/L (5-40) 02/10/19 10:03 ALT 23 units/L (7-56) 02/10/19 10:03 Alkaline Phosphatase 70 units/L (35-129) 02/10/19 10:03 Ammonia 34.0 umol/L (25-60) 02/01/19 17:52 Total Creatine Kinase 88 units/L (55-170) 02/25/19 00:16 CK-MB (CK-2) 1.9 ng/mL (0.0-4.0) 02/25/19 00:16 CK-MB (CK-2) Rel Index 2.1 (0-4) 02/25/19 00:16 Troponin T 0.134 ng/mL (0.00-0.029) H* 02/25/19 00:16 Total Protein 5.9 g/dL (6.3-8.2) L 02/10/19 10:03 Albumin 3.1 g/dL (3.9-5) L 02/10/19 10:03 Albumin/Globulin Ratio 1.1 % 02/10/19 10:03 Triglycerides 135 mg/dL (2-149) 02/07/19 07:41 Cholesterol 155 mg/dL (50-199) 02/07/19 07:41 LDL Cholesterol Direct 101 mg/dL (50-130) 02/07/19 07:41 HDL Cholesterol 39 mg/dL (40-59) L 02/07/19 07:41 Cholesterol/HDL Ratio 3.97 % 02/07/19 07:41 TSH 1.990 mlU/mL (0.270-4.200) 02/01/19 17:52 Urine Color Yellow (Yellow) 02/01/19 20:45 Urine Turbidity Slightly-cloudy (Clear) 02/01/19 20:45 Urine pH 5.0 (5.0-7.0) 02/01/19 20:45 Ur Specific [place] 1.013 (1.003-1.030) 02/01/19 20:45 Urine Protein >500 mg/dL (Negative) 02/01/19 20:45 Urine Glucose (UA) Neg mg/dL (Negative) 02/01/19 20:45 Urine Ketones Neg mg/dL (Negative) 02/01/19 20:45 Urine Blood Sm (Negative) 02/01/19 20:45 Urine Nitrite Neg (Negative) 02/01/19 20:45 Urine Bilirubin Neg (Negative) 02/01/19 20:45 Urine Urobilinogen < 2.0 mg/dL (<2.0) 02/01/19 20:45 Ur Leukocyte Esterase Neg (Negative) 02/01/19 20:45 Urine WBC (Auto) 2.0 /HPF (0.0-6.0) 02/01/19 20:45 Urine RBC (Auto) 3.0 /HPF (0.0-6.0) 02/01/19 20:45 U Epithel Cells (Auto) 1.0 /HPF (0-13.0) 02/01/19 20:45 Urine Bacteria (Auto) 1+ /HPF (Negative) 02/01/19 20:45 Urine Mucus Few /HPF 02/01/19 20:45 Urine Yeast (Budding) 1+ /HPF 02/01/19 20:45 Urine Eosinophils None seen (None Seen) 02/02/19 02:30 Urine Creatinine 115.8 mg/dL (0.1-20.0) H 02/02/19 02:30 Urine Sodium 99 mmol/L 02/02/19 02:30 Urine Total Protein 198 mg/dL (5-11.8) H 02/02/19 02:30 Salicylates < 0.3 mg/dL (2.8-20.0) L 02/01/19 17:52 Acetaminophen < 5.0 ug/mL (10.0-30.0) L 02/01/19 17:52 Plasma/Serum Alcohol < 0.01 % (0-0.07) 02/01/19 17:52 Hepatitis A IgM Ab Non-reactive (NonReactive) 02/15/19 16:41 Hep Bs Antigen Non-reactive (Negative) 02/15/19 16:41 Hep B Core IgM Ab Non-reactive (NonReactive) 02/15/19 16:41 Hepatitis C Antibody Non-reactive (NonReactive) 02/15/19 16:41 Active Medications - Current Medications Current Medications: Generic Name Dose Route Start Last Admin Trade Name Freq PRN Reason Stop Dose Admin Acetaminophen 650 mg 02/01/19 20:23 02/13/19 09:22 Tylenol PO 650 mg Q4H PRN Administration Pain MILD(1-3)/Fever >100.5/QUAN Amlodipine Besylate 10 mg 02/01/19 21:00 02/26/19 11:09 Amlodipine PO 10 mg QDAY ENOC Administration Aripiprazole 5 mg 02/06/19 13:00 02/26/19 12:13 Aripiprazole PO 5 mg QDAY ENOC Administration Docusate Sodium 100 mg 02/01/19 22:00 02/26/19 11:09 Colace PO 100 mg BID ENOC Administration Haloperidol Lactate 5 mg 02/08/19 11:09 02/17/19 20:32 Haldol IM 5 mg Q6H PRN Administration Agitation Heparin Sodium (Porcine) 5,000 unit 02/11/19 22:00 02/26/19 11:10 Heparin SUB-Q 5,000 unit Q12HR ENOC Administration Hydralazine HCl 10 mg 02/01/19 20:12 02/07/19 22:55 Apresoline IV 10 mg Q4HR PRN Administration Blood Pressure Hydralazine HCl 50 mg 02/24/19 14:05 02/26/19 15:06 Apresoline PO 50 mg TID ENOC Administration Sodium Chloride 100 mls @ 999 mls/hr 02/23/19 09:00 Nacl 0.9% IV LOKESH PRN Hypotension Nicotine 14 mg 02/02/19 10:00 02/26/19 11:09 Habitrol TD 14 mg QDAY ENOC Administration Ondansetron HCl 4 mg 02/01/19 20:23 02/07/19 22:45 Zofran IV 4 mg Q8H PRN Administration Nausea And Vomiting Pantoprazole Sodium 40 mg 02/06/19 11:30 02/26/19 11:09 Protonix PO 40 mg QDAY ENOC Administration Sodium Chloride 10 ml 02/01/19 22:00 02/26/19 11:12 Sodium Chloride Flush Syringe 10 Ml IV 10 ml BID ENOC Administration Sodium Chloride 10 ml 02/01/19 20:23 02/18/19 05:35 Sodium Chloride Flush Syringe 10 Ml IV 10 ml PRN PRN Administration LINE FLUSH Nutrition/Malnutrition Assess - Dietary Evaluation Nutrition/Malnutrition Findings: Nutrition Notes Start: 02/03/19 09:42 Freq: Status: Active Protocol: Document 02/08/19 10:03 LP (Rec: 02/08/19 10:05 LP [id number]) Nutrition Notes Need for Assessment generated from: LOS Initial or Follow up Brief Note Subjective/Other Information Screen for LOS. Pt continues eating well. Consuming at least 75% of meals. Nutrition Intervention Revisit per MD consult or patient Sign Off request:
--- NOTE | 2019-02-27 09:22 | Progress Note ---
Assessment and Plan Hypotension -resolved Clonidine and Carvedilol has been stopped. Abnormal ECG -sinus rhythm with LVH Altered mental status ESRD initiated on dialysis this admission Hx of CVA s/p right frontal crainotomy and right aneurysm clipping Schizoaffective disorder Echocardiogram: severe concentric LVH with normal LVEF 60%. Conservative cardiac management. Subjective Date of service: 02/27/19 Principal diagnosis: acute kidney injury, Interval history: Patient is resting in bed comfortably. He has no complaints. Objective Vital Signs Temp Pulse Resp BP Pulse Ox 02/27/19 08:47 100 02/27/19 05:10 98.1 F 18 127/87 02/26/19 23:44 98.4 F 91 H 18 121/86 97 02/26/19 22:00 97 02/26/19 20:00 16 96 02/26/19 19:50 98.0 F 103 H 18 128/94 99 02/26/19 16:25 98.0 F 97 H 18 127/89 94 02/26/19 14:51 97.9 F 100 H 18 122/91 99 02/26/19 12:45 98.4 F 110 H 18 127/86 98 - Physical Examination General: No Apparent Distress HEENT: Positive: PERRL Neck: Positive: trachea midline Cardiac: Positive: Reg Rate and Rhythm Lungs: Positive: Decreased Breath Sounds Neuro: Positive: Weakness Extremities: Absent: edema - Allied health notes Allied health notes reviewed: nursing
[2019-02-27] MEDS: DOCUSATE SODIUM 100 MG CAP PO SCH (09:56)
[2019-02-27] MEDS: ARIPiprazole 5 MG TAB PO SCH (09:56)
[2019-02-27] MEDS: NICOTINE 14 MG/24 HR PATCH TD SCH (09:56)
[2019-02-27] MEDS: PANTOPRAZOLE 40 MG TAB PO SCH (09:56)
[2019-02-27] MEDS: hydrALAZINE 100 MG TAB PO SCH (09:57)
[2019-02-27] MEDS: HEPARIN 5,000 UNIT/1 ML VIAL SUB-Q SCH (09:57)
[2019-02-27] MEDS: amLODIPine 10 MG TAB PO SCH (09:57)
--- NOTE | 2019-02-27 11:14 | Progress Note ---
Assessment and Plan - Patient Problems (1) Acute kidney injury Status: Acute Plan to address problem: Chronic kidney disease progressed to end-stage renal disease now on hemodialy sis. Awaiting arrangements for outpatient dialysis with psychiatric treatment (2) Hypertensive chronic kidney disease with stage 1 through stage 4 chronic kidney disease, or unspecified chronic kidney disease Status: Chronic Plan to address problem: Follow-up blood pressure on current medications (3) Schizoaffective disorder Status: Chronic Plan to address problem: Continue management by psychiatry (4) Anemia Status: Acute Plan to address problem: Follow-up hemoglobin. Subjective Date of service: 02/27/19 Principal diagnosis: acute kidney injury, Interval history: Patient seen lying in bed. He has no new complaints. Sometimes confused. No family at the bedside Objective - Exam Narrative Exam: Disabled middle-aged -[place] male in no acute distress HEENT: NCAT, pink oral mucous membrane, numerous missing teeth Neck: Supple, no venous distention CVS: S1S2 RRR with no murmur, rub or gallop Chest: Clear to auscultation Abdomen: Protuberant, soft, nontender, no organomegaly, bowel sounds are present Extremities: No edema Genitourinary deferred Neuro: Awake, alert no focal deficits - Vital Signs Vital signs: Vital Signs - 12hr 02/26/19 02/27/19 02/27/19 23:44 05:10 08:47 Temperature 98.4 F 98.1 F Pulse Rate 91 H Respiratory 18 18 Rate Blood Pressure 121/86 127/87 O2 Sat by Pulse 97 100 Oximetry - Lab 02/18/19 05:00 02/24/19 14:25 Most recent lab results ABG pH 7.442 pH Units (7.350-7.450) 02/13/19 08:50 ABG pCO2 27.9 mm Hg 02/13/19 08:50 ABG pO2 58.1 mm Hg (80.0-90.0) L 02/13/19 08:50 ABG HCO3 18.6 mmol/L (20.0-26.0) L 02/13/19 08:50 ABG O2 Saturation 90.9 % (95.0-99.0) L 02/13/19 08:50 Calcium 8.2 mg/dL (8.4-10.2) L 02/24/19 14:25 Phosphorus 2.20 mg/dL (2.5-4.5) L 02/10/19 10:03 Magnesium 1.60 mg/dL (1.7-2.3) L 02/10/19 10:03 Urine Creatinine 115.8 mg/dL (0.1-20.0) H 02/02/19 02:30 Urine Sodium 99 mmol/L 02/02/19 02:30 Urine Total Protein 198 mg/dL (5-11.8) H 02/02/19 02:30 Medications & Allergies - Medications Allergies/Adverse Reactions: Allergies No Known Allergies Allergy (Unverified 04/17/17 13:03) Home Medications: Home Medications Medication Instructions Recorded Confirmed Last Taken Type ARIPiprazole 5 mg PO QDAY #30 tablet 02/27/19 Unknown Rx Pantoprazole [Protonix TAB] 40 mg PO QDAY #30 tablet 02/27/19 Unknown Rx amLODIPine 10 mg PO QDAY #30 tablet 02/27/19 Unknown Rx hydrALAZINE [Apresoline TAB] 50 mg PO TID #90 tab 02/27/19 Unknown Rx Active Medications: Generic Name Dose Route Start Last Admin Trade Name Freq PRN Reason Stop Dose Admin Acetaminophen 650 mg 02/01/19 20:23 02/13/19 09:22 Tylenol PO 650 mg Q4H PRN Administration Pain MILD(1-3)/Fever >100.5/QUAN Amlodipine Besylate 10 mg 02/01/19 21:00 02/27/19 09:57 Amlodipine PO 10 mg QDAY ENOC Administration Aripiprazole 5 mg 02/06/19 13:00 02/27/19 09:56 Aripiprazole PO 5 mg QDAY ENOC Administration Docusate Sodium 100 mg 02/01/19 22:00 02/27/19 09:56 Colace PO 100 mg BID ENOC Administration Haloperidol Lactate 5 mg 02/08/19 11:09 02/17/19 20:32 Haldol IM 5 mg Q6H PRN Administration Agitation Heparin Sodium (Porcine) 5,000 unit 02/11/19 22:00 02/27/19 09:57 Heparin SUB-Q 5,000 unit Q12HR ENOC Administration Hydralazine HCl 10 mg 02/01/19 20:12 02/07/19 22:55 Apresoline IV 10 mg Q4HR PRN Administration Blood Pressure Hydralazine HCl 50 mg 02/24/19 14:05 02/27/19 09:57 Apresoline PO 50 mg TID ENOC Administration Sodium Chloride 100 mls @ 999 mls/hr 02/23/19 09:00 Nacl 0.9% IV LOKESH PRN Hypotension Nicotine 14 mg 02/02/19 10:00 02/27/19 09:56 Habitrol TD 14 mg QDAY ENOC Administration Ondansetron HCl 4 mg 02/01/19 20:23 02/07/19 22:45 Zofran IV 4 mg Q8H PRN Administration Nausea And Vomiting Pantoprazole Sodium 40 mg 02/06/19 11:30 02/27/19 09:56 Protonix PO 40 mg QDAY ENOC Administration Sodium Chloride 10 ml 02/01/19 22:00 02/27/19 09:57 Sodium Chloride Flush Syringe 10 Ml IV 10 ml BID ENOC Administration Sodium Chloride 10 ml 02/01/19 20:23 02/18/19 05:35 Sodium Chloride Flush Syringe 10 Ml IV 10 ml PRN PRN Administration LINE FLUSH
--- NOTE | 2019-02-27 12:29 | Discharge Summary ---
Providers - Providers Date of Admission: 02/01/19 19:51 Attending physician: HARDEEP ASHER MD 02/01/19 18:06 Consult to Physician [CONS] Urgent Comment: Consulting Provider: CARMEN RANDOLPH Physician Instructions: Reason For Exam: mikel 02/01/19 20:14 Consult to Physician [CONS] Routine Comment: Consulting Provider: CHRIS PAUL Physician Instructions: Reason For Exam: MIKEL, acute encephalopathy, hx aneurysm 02/01/19 20:26 Consult to Mental Health [CONS] Routine Reason For Exam: hx schizophrenia and bipolar Place consult to:: yes Notified:: JULITA Phone number called:: [phone] Was contact made?: Yes Comment:: NOTIFIED AT 0810 02/06/19 14:48 Physical Therapy Evaluation and Treat [CONS] Routine Comment: Reason For Exam: placement 02/10/19 09:48 Consult to Physician [CONS] Routine Comment: Consulting Provider: AVELINO AVILEZ Physician Instructions: Reason For Exam: acute resp failure, on BIPAP 02/13/19 14:13 Speech Therapy Evaluation and Treat [CONS] Routine Reason For Exam: coughing when giving something to eat 02/16/19 13:25 Consult to Interventional Radiology [CONS] Routine Consulting Provider: ALLY QUINONEZ Reason For Exam: permcath placement Place consult to:: vascular Notified:: yes Was contact made?: Yes Comment:: consult already done 02/16/19 16:59 Consult to Physician [CONS] Routine Comment: Consulting Provider: ALLY MAGAÑA Physician Instructions: Reason For Exam: vascath placement 02/24/19 14:06 Consult to Physician [CONS] Routine Comment: Consulting Provider: NIKKI COLON Physician Instructions: Reason For Exam: hypotension 02/25/19 07:48 Consult to Cardiology [CONS] Stat Consulting Provider: NIKKI COLON Reason For Exam: elevated troponin Primary care physician: SAS ARCHITECT Hospitalization Reason for admission: mikel Condition: Serious Hospital course: 58-year-old -[place] male with history of hypertension, schizophrenia, bipolar, subarachnoid hemorrhage status post right frontal craniotomy, right aneurysm clip in, and chronic left-sided hemiparesis who presents to [facility] with complaints of generalized weakness, nausea, vomiting and AMS for the past day. Of note, pt is non-verbal and unable to provide history. History is provided by , who is a poor historian and review of medical records. Acco rding to pt's pt started experiencing n/v, and intermittent periods of unresponsiveness (lasting approximately <10 minutes) sometime yesterday afternoon. Up until around 10pm last night pt was able to independently ambulate (at baseline has left sided weakness) and feed him self. Early this morning pt experienced a fall while trying to ambulate. Throughout the day he continues to have episodes of nausea and emesis. Family complains that pt displayed episodes of a gazing stare lasting 20-30 minutes. It is not clear as to whether there was actual jerking/body movements associated with gazing stare. At the time of my examination pt is non-verbal, but able to follow some simple commands. * Patient stay was prolonged due to placement issues * He remained clinically stable, was treated for seizures and placed on keppra, bacolfen discontinued * Bp meds were adjusted due hypotension Hypotension-resolved -Pressure medications adjusted -Cardiology following no invasive cardiac work-up planned at this time. MIKEL on CKD 4 - vasomotor nephropathy versus progression of underlying chronic medical disease -Cr on admission 7.5 -CT abdomen and pelvis showed Indeterminant renal masses -Avoid nephrotoxic agents -Renally dose all meds -Nephrology initiated hemdialysis on 02/17 Acute respiratory failure with hypoxia Cont. supp Oxygen, now only 2l/min Will check oxygen sat on RA today Pulmonology following Metabolic encephalopathy -CT head negative -Continue Neuro checks -Neurology consulted and ruled out focal seizure, received IV Keppra in the ER -Hold Bacolfen d/t renal function - Possibly underlying psych issues also contributing - Mental health evaluation done hx schizophrenia and bipolar - Abilify 5 mg PO daily, psych following Agitation haldol prn -Hx Hypertension -BP uncontrolled. Continue to adjust medications as needed Hx Right subarachnoid hemorrhage, status post right frontal craniotomy Hx aneurysm, status post clipping -Continue supportive care -Neurology recommended outpatient follow Tobacco abuse -Current every day smoker -Counseled for cessation -Nicotine patch when necessary Thrombocytopenia. - cont to Monitor DVT PPX -SCD's Medically stable for SNF placement with dialysis, but needs Level 2 clearance. Discussed with Nurse to ambulate patient Disposition: DC-01 TO HOME OR SELFCARE Time spent for discharge: 35 mins Core Measure Documentation - Palliative Care Palliative Care/ Comfort Measures: Not Applicable - Core Measures Any of the following diagnoses?: none Exam - Physical Exam Narrative exam: Gen: Not in acute distress,, Responsive HEENT: Normocephalic, atraumatic Neck: supple, no JVD Heart: S1 and S2 reg, no murmurs, rubs or gallop Lungs: Clear, no crackles Abd: soft, non tender, non distended, normal BS, Ext: No edema, no clubbing, no cyanosis Neuro: Awake, alert, no focal neurological signs - Constitutional Vitals: Temp Pulse Resp BP Pulse Ox 98.1 F 91 H 18 127/87 100 02/27/19 05:10 02/26/19 23:44 02/27/19 05:10 02/27/19 05:10 02/27/19 08:47 Plan Activity: advance as tolerated, fall precautions Diet: low fat, renal Special Instructions: record daily weights, record daily BP diary, record blood sugar diary, physical therapy, occupational therapy Follow up with: PRIMARY CAREMD [Primary Care Provider] - 7 Days CARMEN RANDOLPH MD [Staff Physician] - 7 Days LUCAS THOMPSON MD [Staff Physician] - 7 Days Prescriptions: amLODIPine 10 mg PO QDAY #30 tablet hydrALAZINE [Apresoline TAB] 50 mg PO TID #90 tab ARIPiprazole 5 mg PO QDAY #30 tablet Pantoprazole [Protonix TAB] 40 mg PO QDAY #30 tablet
[2019-02-27 16:49] VITALS: BP 130/84
== END 2019-02-27 19:41 | DRG 673 ==
LOC: ED 16:20 → 3A 19:51 → CC1 21:27 → 4A 02-02 11:26
PROVIDERS: ADMIT Internal Medicine; ATTEND Internal Medicine
PROC: 4A033R1 Measurement of Arterial Saturation, Peripheral, Percutaneous Approach (ICD-10-PCS; 2019-02-10)
PROC: 5A09357 Assistance with Respiratory Ventilation, Less than 24 Consecutive Hours, Continuous Positive Airway Pressure (ICD-10-PCS; 2019-02-10)
PROC: 5A09357 Assistance with Respiratory Ventilation, Less than 24 Consecutive Hours, Continuous Positive Airway Pressure (ICD-10-PCS; 2019-02-11)
PROC: 0JH63XZ Insertion of Tunneled Vascular Access Device into Chest Subcutaneous Tissue and Fascia, Percutaneous Approach (ICD-10-PCS; principal; 2019-02-17)
PROC: 05HY33Z Insertion of Infusion Device into Upper Vein, Percutaneous Approach (ICD-10-PCS; 2019-02-17)
PROC: B543ZZA Ultrasonography of Right Jugular Veins, Guidance (ICD-10-PCS; 2019-02-17)
PROC: B5131ZA Fluoroscopy of Right Jugular Veins using Low Osmolar Contrast, Guidance (ICD-10-PCS; 2019-02-17)
PROC: 5A1D70Z Performance of Urinary Filtration, Intermittent, Less than 6 Hours Per Day (ICD-10-PCS; 2019-02-17)
PROC: 5A1D70Z Performance of Urinary Filtration, Intermittent, Less than 6 Hours Per Day (ICD-10-PCS; 2019-02-18)
PROC: 5A1D70Z Performance of Urinary Filtration, Intermittent, Less than 6 Hours Per Day (ICD-10-PCS; 2019-02-21)
PROC: 5A1D70Z Performance of Urinary Filtration, Intermittent, Less than 6 Hours Per Day (ICD-10-PCS; 2019-02-23)
PROC: 5A1D70Z Performance of Urinary Filtration, Intermittent, Less than 6 Hours Per Day (ICD-10-PCS; 2019-02-25)
DX: N17.0 Acute kidney failure with tubular necrosis (principal); G93.41 Metabolic encephalopathy; J96.01 Acute respiratory failure with hypoxia; F23 Brief psychotic disorder; I12.0 Hypertensive chronic kidney disease with stage 5 chronic kidney disease or end stage renal disease; I69.354 Hemiplegia and hemiparesis following cerebral infarction affecting left non-dominant side; I16.0 Hypertensive urgency; D69.6 Thrombocytopenia, unspecified; R94.31 Abnormal electrocardiogram [ECG] [EKG]; I95.9 Hypotension, unspecified; N18.6 End stage renal disease; F25.9 Schizoaffective disorder, unspecified; R80.9 Proteinuria, unspecified; F17.200 Nicotine dependence, unspecified, uncomplicated; D64.9 Anemia, unspecified; Z71.6 Tobacco abuse counseling
CPT/HCPCS: 36415; 36558; 36600; 70450; 71045; 72125; 74176; 76770; 77001; 80048; 80053; 80061; 80074; 80320; 81001; 82140; 82550; 82553; 82570; 82803; 82962; 83036; 83735; 84100; 84156; 84300; 84443; 84484; 85025; 85027; 87040; 89050; 93005; 93010; 93306; 94660; 94760; 99406; G0378; C1750; G0480; J0360; J1630; J1644; J1940; J1956; J2250; J2405; J3010; J3370; J7030; J7040; J7050

== ENCOUNTER 2019-03-01 18:28 | Inpatient (IN) | payer MEDICARE ==
--- NOTE | 2019-03-01 19:18 | Emergency Department Report ---
ED General Adult HPI - General Chief complaint: Medical Clearance Stated complaint: NEED DIALYSIS Time Seen by Provider: 03/01/19 19:05 Source: EMS Mode of arrival: Stretcher Limitations: Physical Limitation - History of Present Illness Initial comments: 58-year-old male with history of hypertension, schizophrenia, bipolar, subarachnoid hemorrhage status post right frontal craniotomy, right aneurysm clip, chronic left-sided hemiparesis, and end-stage renal disease presents to ED from [facility] presents to the ED for hemodialysis. Patient was discharged from here 2 days ago and sent to the [facility]. It is unclear if the patient was last dialyzed 2 days ago or 3 days ago. There is a note in patient's chart from our wrapper caser today saying that she received a call from the [facility] stating that the patient was denied dialysis by [facility], so patient was transported to the ER for dialysis. Patient denies any shortness of breath at this time. Severity scale (0 -10): 0 - Related Data Previous Rx's Medication Instructions Recorded Last Taken Type ARIPiprazole 5 mg PO QDAY #30 tablet 02/27/19 Unknown Rx Pantoprazole [Protonix TAB] 40 mg PO QDAY #30 tablet 02/27/19 Unknown Rx amLODIPine 10 mg PO QDAY #30 tablet 02/27/19 Unknown Rx hydrALAZINE [Apresoline TAB] 50 mg PO TID #90 tab 02/27/19 Unknown Rx Allergies Allergy/AdvReac Type Severity Reaction Status Date / Time No Known Allergies Allergy Unverified 04/17/17 13:03 ED Review of Systems ROS: Stated complaint: NEED DIALYSIS Other details as noted in HPI ED Past Medical Hx - Past Medical History Hx Hypertension: Yes Hx Congestive Heart Failure: No Hx Diabetes: No Hx Psychiatric Treatment: Yes Hx Asthma: No Hx COPD: No Additional medical history: schizophrenia/bipolar - Social History Smoking Status: Unknown if ever smoked - Medications Home Medications: Home Medications Medication Instructions Recorded Confirmed Last Taken Type ARIPiprazole 5 mg PO QDAY #30 tablet 02/27/19 03/01/19 Unknown Rx Pantoprazole [Protonix TAB] 40 mg PO QDAY #30 tablet 02/27/19 03/01/19 Unknown Rx amLODIPine 10 mg PO QDAY #30 tablet 02/27/19 03/01/19 Unknown Rx hydrALAZINE [Apresoline TAB] 50 mg PO TID #90 tab 02/27/19 03/01/19 Unknown Rx ED Physical Exam - General Limitations: Physical Limitation General appearance: alert, in no apparent distress - Head Head exam: Present: atraumatic - Eye Eye exam: Present: normal appearance - ENT ENT exam: Present: mucous membranes moist - Neck Neck exam: Present: normal inspection - Respiratory Respiratory exam: Present: normal lung sounds bilaterally. Absent: respiratory distress - Cardiovascular Cardiovascular Exam: Present: regular rate, normal rhythm - GI/Abdominal GI/Abdominal exam: Present: soft. Absent: distended, tenderness - Extremities Exam Extremities exam: Present: normal inspection - Neurological Exam Neurological exam: Present: alert, other (baseline left-sided weakness). Absent: oriented X3 (oriented to self and place) - Psychiatric Psychiatric exam: Present: normal affect, normal mood - Skin Skin exam: Present: warm, dry, intact, normal color ED Course Vital Signs 03/01/19 03/01/19 03/01/19 18:46 18:59 19:00 Temperature 98.8 F Pulse Rate 82 77 Respiratory 12 16 Rate Blood Pressure 137/95 Blood Pressure 145/97 [Left] O2 Sat by Pulse 100 100 92 Oximetry 03/01/19 03/01/19 03/01/19 19:15 19:31 19:45 Temperature Pulse Rate 81 78 87 Respiratory 12 11 L 12 Rate Blood Pressure 137/95 137/95 137/95 Blood Pressure [Left] O2 Sat by Pulse 96 100 100 Oximetry 03/01/19 03/01/19 03/01/19 20:00 20:15 20:31 Temperature Pulse Rate 78 75 83 Respiratory 12 12 9 L Rate Blood Pressure 138/105 138/105 138/105 Blood Pressure [Left] O2 Sat by Pulse 100 100 Oximetry 03/01/19 03/01/19 03/01/19 20:45 21:00 21:15 Temperature Pulse Rate 85 81 77 Respiratory 9 L 9 L 16 Rate Blood Pressure 138/105 127/91 127/91 Blood Pressure [Left] O2 Sat by Pulse 100 98 98 Oximetry 03/01/19 03/01/19 03/01/19 23:01 23:15 23:31 Temperature Pulse Rate 76 76 72 Respiratory 14 12 17 Rate Blood Pressure 133/87 133/87 133/87 Blood Pressure [Left] O2 Sat by Pulse 99 100 100 Oximetry - Consultations Consultation #1: 03/01/19 20:30 Spoke w/ Dr Mayers. Admit for dialysis in the AM. ED Medical Decision Making - Lab Data Result diagrams: 03/01/19 19:47 03/01/19 19:47 - Radiology Data Radiology results: report reviewed, image reviewed - Medical Decision Making 58 yo M w/ ESRD missed dialysis today. Pt recently discharged from this hospital 3 days ago, due for dialysis today. CXR and potassium are normal. Outpt dialysis was set up prior to discharge, however, the pt was denied by the dialysis facility. At this time, pt does not have an assigned facility for dialysis. So, I spoke w/ prospecting driller, Dr Mayers. States admit for dialysis tomorrow. - Differential Diagnosis hyperkalemia, pulm edema Critical care attestation.: If time is entered above; I have spent that time in minutes in the direct care of this critically ill patient, excluding procedure time. ED Disposition Clinical Impression: End-stage renal disease needing dialysis Disposition: OP ADMIT IP TO THIS HOSP Is pt being admited?: Yes Condition: Stable Time of Disposition: 20:30
[2019-03-01 20:08] LABS: Calcium 8.9 mg/dL (8.4-10.2)
[2019-03-01 20:09] LABS: Basophils # (Auto) 0.1 K/mm3 (0.0-0.1); Basophils % (Auto) 1.1 % (0.0-1.8); Eosinophils # (Auto) 0.7 K/mm3 (0.0-0.4); Eosinophils % (Auto) 8.7 % (0.0-4.3); Hematocrit 25.3 % (35.5-45.6); Hemoglobin 8.4 gm/dl (11.8-15.2); Lymphocytes # (Auto) 1.6 K/mm3 (1.2-5.4); Mean Corpuscular HGB Conc 33 % (32-34); Mean Corpuscular Volume 87 fl (84-94); Monocytes # (Auto) 0.6 K/mm3 (0.0-0.8); Monocytes % (Auto) 8.1 % (0.0-7.3); Platelet Count 218 K/mm3 (140-440); Red Blood Count 2.92 M/mm3 (3.65-5.03); Red Cell Distribution Width 12.5 % (13.2-15.2)
--- NOTE | 2019-03-01 20:59 | XRay Report ---
CHEST 1 VIEW 2008 INDICATION / CLINICAL INFORMATION: sob. COMPARISON: 02/12/2019 FINDINGS: SUPPORT DEVICES: A large bore right subclavian catheter is now seen with tip in the area of the right atrium. Tip appears to be roughly 3 cm below the area of the atrial caval junction. Shunt is again n oted. HEART / MEDIASTINUM: Stable LUNGS / PLEURA: The pulmonary arteries noted prominently on prior study have resolved. Only minimal b asilar atelectasis is seen now. No pneumothorax. ADDITIONAL FINDINGS: No significant additional findings. IMPRESSION: 1. Interval line placement as above with tip projecting in the area of the right atrium. No obvious c omplication is seen. 2. Resolution of previous pulmonary infiltrates Signer Name: Julio Dunbar MD Signed: 03/01/2019 8:55 PM Workstation Name: [id number]
[2019-03-01] MEDS ORDERED: ONDANSETRON 4 MG/2 ML INJ IV PRN (22:17)
[2019-03-01] MEDS ORDERED: ACETAMINOPHEN 325 MG TAB PO PRN (22:17)
--- NOTE | 2019-03-01 22:19 | History and Physical Report ---
History of Present Illness History of present illness: 58-year-old man history of hypertension, schizophrenia, bipolar, subarachnoid hemorrhage, status post frontal craniotomy, end-stage renal disease on dialysis was sent from [facility] because he did not have dialysis since he was discharged on Wednesday. He was discharged on Wednesday after prolonged stay. Was reported that he was denied by [facility] dialysis.he has no complaints, very poor historian. Review Of Systems: Constitutional: no weight loss, fever, chills Ears, eyes, nose, mouth and throat: no nasal congestion, no nasal discharge, no sinus pressure, blurry vision, diplopia Neck: No neck pain or rigidity. Cardiovascular: No palpitations, chest pain Respiratory: No shortness of breath, cough Gastrointestinal: No hematochezia, abdominal pain Genitourinary : no dysuria, frequency Musculoskeletal: no muscle ache , joint pain Integumentary: no rash, no pruritis Neurological: no parathesias, focal weakness Endocrine: no cold or heat intolerance, no polyuria or polydipsia Hematologic/Lymphatic: no easy bruising, no easy bleeding, no gland swelling Allergic/Immunologic: no urticaria, no angioedema. PAST MEDICAL HISTORY: hypertension, schizophrenia, bipolar, subarachnoid hemorrhage, status post frontal craniotomy, end-stage renal disease PAST SURGICAL HISTORY:right frontal craniotomy, right aneurysm clipping SOCIAL HISTORY: Denies alcohol, drugs, smoke 1pack a day FAMILY HISTORY: Hypertension Medications and Allergies Allergies Allergy/AdvReac Type Severity Reaction Status Date / Time No Known Allergies Allergy Unverified 04/17/17 13:03 Home Medications Medication Instructions Recorded Confirmed Last Taken Type ARIPiprazole 5 mg PO QDAY #30 tablet 02/27/19 03/01/19 Unknown Rx Pantoprazole [Protonix TAB] 40 mg PO QDAY #30 tablet 02/27/19 03/01/19 Unknown Rx amLODIPine 10 mg PO QDAY #30 tablet 02/27/19 03/01/19 Unknown Rx hydrALAZINE [Apresoline TAB] 50 mg PO TID #90 tab 02/27/19 03/01/19 Unknown Rx Active Meds: Active Medications Acetaminophen (Tylenol) 650 mg PO Q4H PRN PRN Reason: Pain MILD(1-3)/Fever >100.5/QUAN Enoxaparin Sodium (Enoxaparin) 30 mg SUB-Q QDAY ENOC Ondansetron HCl (Zofran) 4 mg IV Q8H PRN PRN Reason: Nausea And Vomiting Sodium Chloride (Sodium Chloride Flush Syringe 10 Ml) 10 ml IV BID ENOC Sodium Chloride (Sodium Chloride Flush Syringe 10 Ml) 10 ml IV PRN PRN PRN Reason: LINE FLUSH Exam - Physical Exam Narrative exam: Gen. appearance: Patient lying in bed, no apparent distress HEENT: Normocephalic, atraumatic, pupils equally round and reactive to light, extraocular movement intact, and no sclericterus,. No JVD or thyromegaly or nodule,neck supple, no carotid bruit ,mucous membranes moist, no exudate or erythema Heart: S1, S2, regular rate and rhythm Lungs: Clear bilaterally, breathing comfortable Abdomen: Positive bowel sounds, nontender, nondistended, no organomegaly Extremity: no edema, cyanosis, clubbing Skin: No rash, nodules, warm, dry Neuro: speech is fluent, moves extremities, sensory intact - Constitutional Vitals: Temp Pulse Resp BP Pulse Ox 98.8 F 77 16 127/91 98 03/01/19 18:59 03/01/19 21:15 03/01/19 21:15 03/01/19 21:15 03/01/19 21:15 Results - Labs CBC & Chem 7: 03/01/19 19:47 03/01/19 19:47 Labs: Abnormal lab results 03/01/19 03/01/19 Range/Units 19:47 19:47 RBC 2.92 L (3.65-5.03) M/mm3 Hgb 8.4 L (11.8-15.2) gm/dl Hct 25.3 L (35.5-45.6) % RDW 12.5 L (13.2-15.2) % Rains % (Auto) 8.1 H (0.0-7.3) % Eos % (Auto) 8.7 H (0.0-4.3) % Eos # 0.7 H (0.0-0.4) K/mm3 Chloride 97.8 L (98-107) mmol/L Carbon Dioxide 20 L (22-30) mmol/L BUN 107 H (9-20) mg/dL Creatinine 12.3 H (0.8-1.5) mg/dL Glucose 103 H (75-100) mg/dL - Imaging and Cardiology EKG: image reviewed Chest x-ray: report reviewed Assessment and Plan Assessment End-stage renal disease needing dialysis Renal was consulted with the patient He will obtain dialysis in the morning Consult Case managent for dialysis placement Bipolar/schizophrenia Continue aripipazole Hypertension Continue norvasc, hydralazine History of subarachnoid hemorrhage, stable
[2019-03-02 05:15] LABS: Basophils # (Auto) 0.1 K/mm3 (0.0-0.1); Eosinophils # (Auto) 0.5 K/mm3 (0.0-0.4); Eosinophils % (Auto) 8.4 % (0.0-4.3); Hematocrit 25.4 % (35.5-45.6); Hemoglobin 8.4 gm/dl (11.8-15.2); Lymphocytes # (Auto) 1.3 K/mm3 (1.2-5.4); Lymphocytes % (Auto) 22.5 % (13.4-35.0); Mean Corpuscular HGB Conc 33 % (32-34); Mean Corpuscular Volume 87 fl (84-94); Monocytes # (Auto) 0.5 K/mm3 (0.0-0.8); Monocytes % (Auto) 9.2 % (0.0-7.3); Platelet Count 221 K/mm3 (140-440); Red Blood Count 2.91 M/mm3 (3.65-5.03); Red Cell Distribution Width 12.8 % (13.2-15.2)
[2019-03-02 05:35] LABS: Calcium 8.8 mg/dL (8.4-10.2)
[2019-03-02] MEDS ORDERED: HEPARIN 10,000 UNITS/10 ML VIAL IV PRN (08:31)
[2019-03-02] MEDS ORDERED: SODIUM CHLORIDE 0.9% 100 ML IV PRN (08:31)
[2019-03-02] MEDS ORDERED: HEPARIN 10,000 UNIT/1 ML VIAL IV PRN (08:31)
--- NOTE | 2019-03-02 08:34 | Consultation ---
History of Present Illness - Reason for Consult Consult date: 03/02/19 end stage renal disease Requesting physician: GUERA ABEBE - History of Present Illness 58-year-old male with a history of hypertension, schizophrenia/bipolar disorder admitted a month ago with altered mental status and weakness. Patient was found to be in renal failure. Patient did not respond to medical management and so had to be started on dialysis. He was discharged and was meant to go to dialysis at [facility]. However on getting there, patient was denied admission per the medical researcher. It's unclear why this was not ascertained prior to discharge. Patient is not able to give much of history. He has a history of right frontal craniotomy with aneurysm clipping. He is also on antipsychotic medications. [place] is obtained from review of the records. 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 denies: alcohol abuse, prescription drug abuse, IV drug use Family history: other (mother of complications of alcoholism. Father is alive in his 80s) Medications and Allergies Allergies Allergy/AdvReac Type Severity Reaction Status Date / Time No Known Allergies Allergy Unverified 04/17/17 13:03 Home Medications Medication Instructions Recorded Confirmed Last Taken Type ARIPiprazole 5 mg PO QDAY #30 tablet 02/27/19 03/01/19 Unknown Rx Pantoprazole [Protonix TAB] 40 mg PO QDAY #30 tablet 02/27/19 03/01/19 Unknown Rx amLODIPine 10 mg PO QDAY #30 tablet 02/27/19 03/01/19 Unknown Rx hydrALAZINE [Apresoline TAB] 50 mg PO TID #90 tab 02/27/19 03/01/19 Unknown Rx Active Meds: Active Medications Acetaminophen (Tylenol) 650 mg PO Q4H PRN PRN Reason: Pain MILD(1-3)/Fever >100.5/QUAN Amlodipine Besylate (Amlodipine) 10 mg PO QDAY ENOC Aripiprazole (Aripiprazole) 5 mg PO QDAY ENOC Enoxaparin Sodium (Enoxaparin) 30 mg SUB-Q QDAY ENOC Epoetin Polo (Procrit) 10,000 unit IV LOKESH PRN PRN Reason: hemodialysis Heparin Sodium (Porcine) (Heparin 10,000 Units/10 Ml) 1,000 unit IV LOKESH PRN PRN Reason: hemodialysis Heparin Sodium (Porcine) (Heparin) 5,000 unit IV LOKESH PRN PRN Reason: hemodialysis Hydralazine HCl (Apresoline) 50 mg PO TID ENOC Sodium Chloride (Nacl 0.9%) 100 mls @ 999 mls/hr IV LOKESH PRN PRN Reason: Hypotension Ondansetron HCl (Zofran) 4 mg IV Q8H PRN PRN Reason: Nausea And Vomiting Pantoprazole Sodium (Protonix) 40 mg PO QDAY ENOC Sodium Chloride (Sodium Chloride Flush Syringe 10 Ml) 10 ml IV BID ENOC Sodium Chloride (Sodium Chloride Flush Syringe 10 Ml) 10 ml IV PRN PRN PRN Reason: LINE FLUSH Review of Systems ROS unobtainable: due to mental status Exam - Vital Signs Vital signs: Vital Signs Pulse Ox 100 03/01/19 18:46 - Physical Exam Narrative exam: Middle-aged -[place] male lying in bed in no acute distress HEENT: NCAT, pink oral mucous membrane Neck: Supple, no venous distention CVS: S1S2 RRR with no murmur, rub or gallop Chest: Clear to auscultation Abdomen: Protuberant, soft, nontender, no organomegaly, bowel sounds are present Extremities: No edema Neuro: Drowsy, answers simple questions but has no recollections of why he was brought to the hospital, no focal deficits Results - Lab Results 03/02/19 04:11 03/02/19 04:11 Most recent lab results Calcium 8.8 mg/dL (8.4-10.2) 03/02/19 04:11 Assessment and Plan - Patient Problems (1) Anemia in end-stage renal disease Current Visit: Yes Status: Acute Plan to address problem: Give Erythropoetin on dialysis (2) Schizoaffective disorder Current Visit: Yes Status: Acute Plan to address problem: Continue management by psychiatrist (3) End-stage renal disease needing dialysis Current Visit: Yes Status: Acute Plan to address problem: Resume hemodialysis on a Wednesday, and Wednesday schedule. manager biologics to assist with placement at [facility]. Will speak to clinical nursing assistant and try to expedite admission (4) Hypertension associated with stage 5 chronic kidney disease due to type 2 diabetes mellitus Current Visit: Yes Status: Acute Plan to address problem: Follow-up blood pressure on current medications
[2019-03-02] MEDS: PANTOPRAZOLE 40 MG TAB PO SCH (09:04)
[2019-03-02] MEDS: ENOXAPARIN 30 MG/0.3 ML INJ SUB-Q SCH (09:04)
[2019-03-02] MEDS: hydrALAZINE 100 MG TAB PO SCH ×3 (09:07→22:11)
[2019-03-02] MEDS ORDERED: SODIUM CHLORIDE*PRIMING MACHINE ONLY FOR DIALYSIS MC ONE (11:44)
[2019-03-02] MEDS: EPOETIN ALFA 10,000 UNIT/1 ML INJ IV PRN (13:37)
--- NOTE | 2019-03-02 14:24 | Progress Note ---
Assessment and Plan Assessment and plan: 58-year-old man history of hypertension, schizophrenia, bipolar, subarachnoid hemorrhage, status post frontal craniotomy with aneurysmal clip, end-stage renal disease on dialysis was sent from [facility] because he did not have dialysis since he was discharged on Wednesday. He was discharged on Wednesday after prolonged stay. Was reported that he was denied by [facility] dialysis.he has no complaints, very poor historian. * Patient is non verbal and during last admission his spouse provided information * He previously was ambulatory but admitted last time with left sided weakness * Patient stay was prolonged due to placement issues * He remained clinically stable, was treated for seizures and placed on keppra, bacolfen discontinued * Bp meds were adjusted due hypotension * He was discharged after a dialysis place was established but returns because the dialysis centers medical aide declined to now accept him MIKEL on CKD 4 - vasomotor nephropathy versus progression of underlying chronic medical disease -Nephrology consulted -Avoid nephrotoxic agents -Renally dose all meds -Nephrology initiated hemdialysis on 02/17 hx schizophrenia and bipolar - Abilify 5 mg PO daily, psych following -Hx Hypertension -BP uncontrolled. Continue to adjust medications as needed Hx Right subarachnoid hemorrhage, status post right frontal craniotomy Hx aneurysm, status post clipping -Continue supportive care -Neurology recommended outpatient follow Tobacco abuse -Current every day smoker -Counseled for cessation -Nicotine patch when necessary Moderate Protein Calorie Malnutrition Continue to encourage PO intake Thrombocytopenia. - cont to Monitor Bipolar/schizophrenia Continue aripipazole Hypertension Continue norvasc, hydralazine dvt/gi prophy Discharge once dialysis center obtained History Interval history: Patient seen and examined, resting comfortable, still with some intermittent confusion but appears to be her baseline. Hospitalist Physical - Physical exam Narrative exam: Gen. appearance: Patient lying in bed, no apparent distress HEENT: Normocephalic, atraumatic, pupils equally round and reactive to light, extraocular movement intact, and no sclericterus,. No JVD or thyromegaly or nodule,neck supple, no carotid bruit ,mucous membranes moist, no exudate or erythema Heart: S1, S2, regular rate and rhythm Lungs: Clear bilaterally, breathing comfortable Abdomen: Positive bowel sounds, nontender, nondistended, no organomegaly Extremity: no edema, cyanosis, clubbing Skin: No rash, nodules, warm, dry Neuro: speech is fluent, moves extremities, sensory intact - Constitutional Vitals: Temp Pulse Resp BP Pulse Ox 97.5 F L 83 20 140/95 93 03/02/19 05:55 03/02/19 05:55 03/02/19 05:55 03/02/19 05:55 03/02/19 05:55 Results - Labs CBC & Chem 7: 03/02/19 04:11 03/02/19 04:11 Labs: Laboratory Last Values WBC 6.0 K/mm3 (4.5-11.0) 03/02/19 04:11 RBC 2.91 M/mm3 (3.65-5.03) L 03/02/19 04:11 Hgb 8.4 gm/dl (11.8-15.2) L 03/02/19 04:11 Hct 25.4 % (35.5-45.6) L 03/02/19 04:11 MCV 87 fl (84-94) 03/02/19 04:11 MCH 29 pg (28-32) 03/02/19 04:11 MCHC 33 % (32-34) 03/02/19 04:11 RDW 12.8 % (13.2-15.2) L 03/02/19 04:11 Plt Count 221 K/mm3 (140-440) 03/02/19 04:11 Lymph % (Auto) 22.5 % (13.4-35.0) 03/02/19 04:11 [place] % (Auto) 9.2 % (0.0-7.3) H 03/02/19 04:11 Eos % (Auto) 8.4 % (0.0-4.3) H 03/02/19 04:11 Baso % (Auto) 1.0 % (0.0-1.8) 03/02/19 04:11 Lymph # 1.3 K/mm3 (1.2-5.4) 03/02/19 04:11 [place] # 0.5 K/mm3 (0.0-0.8) 03/02/19 04:11 Eos # 0.5 K/mm3 (0.0-0.4) H 03/02/19 04:11 Baso # 0.1 K/mm3 (0.0-0.1) 03/02/19 04:11 Seg Neutrophils % 58.9 % (40.0-70.0) 03/02/19 04:11 Seg Neutrophils # 3.5 K/mm3 (1.8-7.7) 03/02/19 04:11 Sodium 140 mmol/L (137-145) 03/02/19 04:11 Potassium 4.5 mmol/L (3.6-5.0) 03/02/19 04:11 Chloride 96.6 mmol/L (98-107) L 03/02/19 04:11 Carbon Dioxide 21 mmol/L (22-30) L 03/02/19 04:11 Anion Gap 27 mmol/L 03/02/19 04:11 BUN 108 mg/dL (9-20) H 03/02/19 04:11 Creatinine 12.2 mg/dL (0.8-1.5) H 03/02/19 04:11 Estimated GFR 5 ml/min 03/02/19 04:11 BUN/Creatinine Ratio 9 % 03/02/19 04:11 Glucose 87 mg/dL (75-100) 03/02/19 04:11 Calcium 8.8 mg/dL (8.4-10.2) 03/02/19 04:11 Active Medications - Current Medications Current Medications: Generic Name Dose Route Start Last Admin Trade Name Freq PRN Reason Stop Dose Admin Acetaminophen 650 mg 03/01/19 22:17 Tylenol PO Q4H PRN Pain MILD(1-3)/Fever >100.5/QUAN Amlodipine Besylate 10 mg 03/02/19 10:00 Amlodipine PO QDAY [facility] Aripiprazole 5 mg 03/02/19 10:00 Aripiprazole PO QDAY [facility] Enoxaparin Sodium 30 mg 03/02/19 10:00 03/02/19 09:04 Enoxaparin SUB-Q 30 mg QDAY [facility] Administration Epoetin Polo 10,000 unit 03/02/19 08:31 03/02/19 13:37 Procrit IV 10,000 unit LOKESH PRN Administration hemodialysis Heparin Sodium (Porcine) 1,000 unit 03/02/19 08:31 Heparin 10,000 Units/10 Ml IV LOKESH PRN hemodialysis Heparin Sodium (Porcine) 5,000 unit 03/02/19 08:31 Heparin IV LOKESH PRN hemodialysis Hydralazine HCl 50 mg 03/02/19 08:00 03/02/19 09:07 Apresoline PO 50 mg TID ENOC Administration Sodium Chloride 100 mls @ 999 mls/hr 03/02/19 08:31 Nacl 0.9% IV LOKESH PRN Hypotension Ondansetron HCl 4 mg 03/01/19 22:17 Zofran IV Q8H PRN Nausea And Vomiting Pantoprazole Sodium 40 mg 03/02/19 10:00 03/02/19 09:04 Protonix PO 40 mg QDAY ENOC Administration Sodium Chloride 10 ml 03/02/19 10:00 03/02/19 09:05 Sodium Chloride Flush Syringe 10 Ml IV 10 ml BID ENOC Administration Sodium Chloride 10 ml 03/01/19 22:17 Sodium Chloride Flush Syringe 10 Ml IV PRN PRN LINE FLUSH Nutrition/Malnutrition Assess - Dietary Evaluation Nutrition/Malnutrition Findings: Nutrition Notes Start: 03/02/19 09:43 Freq: Status: Active Protocol: Document 03/02/19 09:43 CW (Rec: 03/02/19 10:11 CW [id number]) Co-Sign 03/02/19 09:43 LP Nutrition Notes Need for Assessment generated from: 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 Pt did not seem to fully understand nutrition related questions. Pt stated that he liiked the Nepro shakes and was able to drink them. Estimated Nepro shake intake: 50% Burn Absent Trauma Absent GI Symptoms None Food Allergy No Current % PO Poor (25-49%) Minimum of two criteria Yes Interpretation of Weight Loss (severe) >2% in 1 week Muscle Mass Mild Depletion (non-severe) #1 Nutrition Diagnosis Malnutrition Etiology chronic ESRD As Evidenced by Signs and Symptoms temporal muscle wasting and poor oral intake Is patient on ventilator? No Is Patient Ambulatory and/or Out of Bed No REE-([facility]-confined to bed) 4954.111 Calculation Used for Recommendations [facility] Additional Notes Protein needs: >67 g (>1.2g/ kg) Fluid needs: 1000 - 1500 mL Nutrition Intervention Change Diet Order: continue renal diet Add Supplement/Snack (indicate name/kcal Nepro BID /protein ) Provides kCal: 850 Provides Protein (gm) 38 Goal #1 Increase oral intake to at least 80% of dietary needs Anticipated Discharge Needs: Renal diet, w/ Nepro Supplement BID Follow-Up By: 03/06/19 Additional Comments F/U for increased oral intake - Malnutrition Assessment Minimum of two criteria: Yes - Attestation Statement I have reviewed and agreed w/ Malnutrition eval & tx plan: Yes
[2019-03-02] MEDS: ARIPiprazole 5 MG TAB PO SCH (16:58)
[2019-03-02] MEDS: amLODIPine 10 MG TAB PO SCH (16:58)
--- NOTE | 2019-03-02 19:12 | Consultation ---
History of Present Illness - Reason for Consult Consult date: 03/03/19 end stage renal disease - History of Present Illness Patient seen lying in bed. He has no complaints Medications and Allergies Allergies Allergy/AdvReac Type Severity Reaction Status Date / Time No Known Allergies Allergy Unverified 04/17/17 13:03 Home Medications Medication Instructions Recorded Confirmed Last Taken Type ARIPiprazole 5 mg PO QDAY #30 tablet 02/27/19 03/01/19 Unknown Rx Pantoprazole [Protonix TAB] 40 mg PO QDAY #30 tablet 02/27/19 03/01/19 Unknown Rx amLODIPine 10 mg PO QDAY #30 tablet 02/27/19 03/01/19 Unknown Rx hydrALAZINE [Apresoline TAB] 50 mg PO TID #90 tab 02/27/19 03/01/19 Unknown Rx Active Meds: Active Medications Acetaminophen (Tylenol) 650 mg PO Q4H PRN PRN Reason: Pain MILD(1-3)/Fever >100.5/QUAN Amlodipine Besylate (Amlodipine) 10 mg PO QDAY [facility] Last Admin: 03/02/19 16:58 Dose: 10 mg Documented by: Aripiprazole (Aripiprazole) 5 mg PO QDAY [facility] Last Admin: 03/02/19 16:58 Dose: 5 mg Documented by: Enoxaparin Sodium (Enoxaparin) 30 mg SUB-Q QDAY [facility] Last Admin: 03/02/19 09:04 Dose: 30 mg Documented by: Epoetin Polo (Procrit) 10,000 unit IV LOKESH PRN PRN Reason: hemodialysis Last Admin: 03/02/19 13:37 Dose: 10,000 unit Documented by: Heparin Sodium (Porcine) (Heparin 10,000 Units/10 Ml) 1,000 unit IV LOKESH PRN PRN Reason: hemodialysis Heparin Sodium (Porcine) (Heparin) 5,000 unit IV LOKESH PRN PRN Reason: hemodialysis Hydralazine HCl (Apresoline) 50 mg PO TID [facility] Last Admin: 03/02/19 16:48 Dose: Not Given Documented by: Sodium Chloride (Nacl 0.9%) 100 mls @ 999 mls/hr IV LOKESH PRN PRN Reason: Hypotension Ondansetron HCl (Zofran) 4 mg IV Q8H PRN PRN Reason: Nausea And Vomiting Pantoprazole Sodium (Protonix) 40 mg PO QDAY [facility] Last Admin: 03/02/19 09:04 Dose: 40 mg Documented by: Sodium Chloride (Sodium Chloride Flush Syringe 10 Ml) 10 ml IV BID [facility] Last Admin: 03/02/19 09:05 Dose: 10 ml Documented by: Sodium Chloride (Sodium Chloride Flush Syringe 10 Ml) 10 ml IV PRN PRN PRN Reason: LINE FLUSH Exam - Vital Signs Vital signs: Vital Signs Pulse Ox 100 03/01/19 18:46 - Physical Exam Narrative exam: Middle-aged -[place] male lying in bed in no acute distress HEENT: NCAT, pink oral mucous membrane Neck: Supple, no venous distention CVS: S1S2 RRR with no murmur, rub or gallop Chest: Clear to auscultation Abdomen: Protuberant, soft, nontender, no organomegaly, bowel sounds are present Extremities: No edema Neuro: Drowsy, answers simple questions but has no recollections of why he was brought to the hospital, no focal deficits Results - Lab Results 03/02/19 04:11 03/02/19 04:11 Most recent lab results Calcium 8.8 mg/dL (8.4-10.2) 03/02/19 04:11 Assessment and Plan - Patient Problems (1) End-stage renal disease needing dialysis Current Visit: Yes Status: Acute Plan to address problem: Resume hemodialysis on a Wednesday, and Wednesday schedule. marketing development manager to assist with placement at [facility] dialysis. Awaiting placement (2) Anemia in end-stage renal disease Current Visit: Yes Status: Acute Plan to address problem: Give Erythropoetin on dialysis (3) Hypertension associated with stage 5 chronic kidney disease due to type 2 diabetes mellitus Current Visit: Yes Status: Acute Plan to address problem: Follow-up blood pressure on current medications (4) Schizoaffective disorder Current Visit: Yes Status: Acute Plan to address problem: Continue management by psychiatrist
[2019-03-03] MEDS: hydrALAZINE 100 MG TAB PO SCH ×3 (09:48→22:17)
[2019-03-03] MEDS: PANTOPRAZOLE 40 MG TAB PO SCH (10:32)
[2019-03-03] MEDS: amLODIPine 10 MG TAB PO SCH (10:33)
[2019-03-03] MEDS: ENOXAPARIN 30 MG/0.3 ML INJ SUB-Q SCH (10:34)
[2019-03-03] MEDS: ARIPiprazole 5 MG TAB PO SCH (10:38)
--- NOTE | 2019-03-03 14:13 | Progress Note ---
Assessment and Plan Assessment and plan: 58-year-old man history of hypertension, schizophrenia, bipolar, subarachnoid hemorrhage, status post frontal craniotomy with aneurysmal clip, end-stage renal disease on dialysis was sent from [facility] because he did not have dialysis since he was discharged on Wednesday. He was discharged on Wednesday after prolonged stay. Was reported that he was denied by [facility] dialysis.he has no complaints, very poor historian. * Patient is able to speak but often choses not to * He previously was ambulatory but admitted last time with left sided weakness * Patient stay was prolonged due to placement issues * He remained clinically stable, was treated for seizures and placed on keppra, bacolfen discontinued * Bp meds were adjusted due hypotension * He was discharged after a dialysis place was established but returns because the dialysis centers medical associate declined to now accept him MIKEL on CKD 4 - vasomotor nephropathy versus progression of underlying chronic medical disease -Nephrology consulted -Avoid nephrotoxic agents -Renally dose all meds -Nephrology initiated hemdialysis on 02/17 hx schizophrenia and bipolar - Abilify 5 mg PO daily, psych following -Hx Hypertension -BP uncontrolled. Continue to adjust medications as needed Hx Right subarachnoid hemorrhage, status post right frontal craniotomy Hx aneurysm, status post clipping -Continue supportive care -Neurology recommended outpatient follow Tobacco abuse -Current every day smoker -Counseled for cessation -Nicotine patch when necessary Moderate Protein Calorie Malnutrition Continue to encourage PO intake Thrombocytopenia. - cont to Monitor Bipolar/schizophrenia Continue aripipazole Hypertension Continue norvasc, hydralazine dvt/gi prophy Discharge once dialysis center obtained History Interval history: Patient seen and examined, resting comfortable, still with some intermittent confusion but appears to be her baseline. Hospitalist Physical - Physical exam Narrative exam: Gen. appearance: Patient lying in bed, no apparent distress HEENT: Normocephalic, atraumatic, pupils equally round and reactive to light, extraocular movement intact, and no sclericterus, No JVD or thyromegaly or nodule,neck supple, no carotid bruit ,mucous membranes moist, no exudate or erythema Heart: S1, S2, regular rate and rhythm Lungs: Clear bilaterally, breathing comfortable Abdomen: Positive bowel sounds, nontender, nondistended, no organomegaly Extremity: no edema, cyanosis, clubbing Skin: No rash, nodules, warm, dry Neuro: speech is fluent, moves extremities, sensory intact - Constitutional Vitals: Temp Pulse Resp BP Pulse Ox 99.1 F 106 H 16 119/86 100 03/03/19 12:42 03/03/19 12:42 03/03/19 12:42 03/03/19 12:42 03/03/19 12:42 Results - Labs CBC & Chem 7: 03/02/19 04:11 03/02/19 04:11 Labs: Laboratory Last Values WBC 6.0 K/mm3 (4.5-11.0) 03/02/19 04:11 RBC 2.91 M/mm3 (3.65-5.03) L 03/02/19 04:11 Hgb 8.4 gm/dl (11.8-15.2) L 03/02/19 04:11 Hct 25.4 % (35.5-45.6) L 03/02/19 04:11 MCV 87 fl (84-94) 03/02/19 04:11 MCH 29 pg (28-32) 03/02/19 04:11 MCHC 33 % (32-34) 03/02/19 04:11 RDW 12.8 % (13.2-15.2) L 03/02/19 04:11 Plt Count 221 K/mm3 (140-440) 03/02/19 04:11 Lymph % (Auto) 22.5 % (13.4-35.0) 03/02/19 04:11 [place] % (Auto) 9.2 % (0.0-7.3) H 03/02/19 04:11 Eos % (Auto) 8.4 % (0.0-4.3) H 03/02/19 04:11 Baso % (Auto) 1.0 % (0.0-1.8) 03/02/19 04:11 Lymph # 1.3 K/mm3 (1.2-5.4) 03/02/19 04:11 [place] # 0.5 K/mm3 (0.0-0.8) 03/02/19 04:11 Eos # 0.5 K/mm3 (0.0-0.4) H 03/02/19 04:11 Baso # 0.1 K/mm3 (0.0-0.1) 03/02/19 04:11 Seg Neutrophils % 58.9 % (40.0-70.0) 03/02/19 04:11 Seg Neutrophils # 3.5 K/mm3 (1.8-7.7) 03/02/19 04:11 Sodium 140 mmol/L (137-145) 03/02/19 04:11 Potassium 4.5 mmol/L (3.6-5.0) 03/02/19 04:11 Chloride 96.6 mmol/L (98-107) L 03/02/19 04:11 Carbon Dioxide 21 mmol/L (22-30) L 03/02/19 04:11 Anion Gap 27 mmol/L 03/02/19 04:11 BUN 108 mg/dL (9-20) H 03/02/19 04:11 Creatinine 12.2 mg/dL (0.8-1.5) H 03/02/19 04:11 Estimated GFR 5 ml/min 03/02/19 04:11 BUN/Creatinine Ratio 9 % 03/02/19 04:11 Glucose 87 mg/dL (75-100) 03/02/19 04:11 Calcium 8.8 mg/dL (8.4-10.2) 03/02/19 04:11 Active Medications - Current Medications Current Medications: Generic Name Dose Route Start Last Admin Trade Name Freq PRN Reason Stop Dose Admin Acetaminophen 650 mg 03/01/19 22:17 Tylenol PO Q4H PRN Pain MILD(1-3)/Fever >100.5/QUAN Amlodipine Besylate 10 mg 03/02/19 10:00 03/03/19 10:33 Amlodipine PO Not Given QDAY [facility] Aripiprazole 5 mg 03/02/19 10:00 03/03/19 10:38 Aripiprazole PO 5 mg QDAY [facility] Administration Enoxaparin Sodium 30 mg 03/02/19 10:00 03/03/19 10:34 Enoxaparin SUB-Q 30 mg QDAY [facility] Administration Epoetin Polo 10,000 unit 03/02/19 08:31 03/02/19 13:37 Procrit IV 10,000 unit LOKESH PRN Administration hemodialysis Heparin Sodium (Porcine) 1,000 unit 03/02/19 08:31 Heparin 10,000 Units/10 Ml IV LOKESH PRN hemodialysis Heparin Sodium (Porcine) 5,000 unit 03/02/19 08:31 Heparin IV LOKESH PRN hemodialysis Hydralazine HCl 50 mg 03/02/19 08:00 03/03/19 09:48 Apresoline PO Not Given TID ENOC Sodium Chloride 100 mls @ 999 mls/hr 03/02/19 08:31 Nacl 0.9% IV LOKESH PRN Hypotension Ondansetron HCl 4 mg 03/01/19 22:17 Zofran IV Q8H PRN Nausea And Vomiting Pantoprazole Sodium 40 mg 03/02/19 10:00 03/03/19 10:32 Protonix PO 40 mg QDAY [facility] Administration Sodium Chloride 10 ml 03/02/19 10:00 03/03/19 10:34 Sodium Chloride Flush Syringe 10 Ml IV 10 ml BID [facility] Administration Sodium Chloride 10 ml 03/01/19 22:17 Sodium Chloride Flush Syringe 10 Ml IV PRN PRN LINE FLUSH Nutrition/Malnutrition Assess - Dietary Evaluation Nutrition/Malnutrition Findings: Nutrition Notes Start: 03/02/19 09:43 Freq: Status: Active Protocol: Document 03/02/19 09:43 CW (Rec: 03/02/19 10:11 CW [id number]) Co-Sign 03/02/19 09:43 LP Nutrition Notes Need for Assessment generated from: dustless operator Initial or Follow up Assessment Current Diagnosis CKD (stage V CKD),Hypertension Other Pertinent Diagnosis hematochezia Current Diet renal diet Labs/Tests BUN: 108; Cl: 96.6; CO2: 21; Cr: 12.2 Pertinent Medications reviewed Height 5 ft 6 in Weight 56 kg Usual Body Weight 63.6 kg [place] Body Weight (kg) 64.54 BMI 19.9 Weight change and time frame 17 lb weight loss in 3 weeks ( 26% wt loss) Weight Status Appropriate Subjective/Other Information UBW used from adm report on (63.6 kg); Pt appeared to have temporal muscle wasting and cognitively impaired. Pt did not seem to fully understand nutrition related questions. Pt stated that he liiked the Nepro shakes and was able to drink them. Estimated Nepro shake intake: 50% Burn Absent Trauma Absent GI Symptoms None Food Allergy No Current % PO Poor (25-49%) Minimum of two criteria Yes Interpretation of Weight Loss (severe) >2% in 1 week Muscle Mass Mild Depletion (non-severe) #1 Nutrition Diagnosis Malnutrition Etiology chronic ESRD As Evidenced by Signs and Symptoms temporal muscle wasting and poor oral intake Is patient on ventilator? No Is Patient Ambulatory and/or Out of Bed No REE-([facility]-confined to bed) 9006.117 Calculation Used for Recommendations [facility] Additional Notes Protein needs: >67 g (>1.2g/ kg) Fluid needs: 1000 - 1500 mL Nutrition Intervention Change Diet Order: continue renal diet Add Supplement/Snack (indicate name/kcal Nepro BID /protein ) Provides kCal: 850 Provides Protein (gm) 38 Goal #1 Increase oral intake to at least 80% of dietary needs Anticipated Discharge Needs: Renal diet, w/ Nepro Supplement BID Follow-Up By: 03/06/19 Additional Comments F/U for increased oral intake
--- NOTE | 2019-03-04 09:25 | Progress Note ---
Assessment and Plan - Patient Problems (1) End-stage renal disease needing dialysis Current Visit: Yes Status: Acute Plan to address problem: cont HD on TTS schedule. outpatient HD arrangement as per case management (2) Hypertension associated with stage 5 chronic kidney disease due to type 2 diabetes mellitus Current Visit: Yes Status: Acute Plan to address problem: BP controlled. monitor BP on current meds (3) Anemia Current Visit: No Status: Acute Plan to address problem: cont EPO with HD (4) Schizoaffective disorder Current Visit: No Status: Chronic Plan to address problem: follow psychiatry recommendations Subjective Date of service: 03/04/19 Principal diagnosis: ESRD Interval history: pt awake, alert in no acute distress Objective - Vital Signs Vital signs: Vital Signs - 12hr 03/03/19 03/04/19 23:11 05:47 Temperature 99.0 F 98.8 F Pulse Rate 86 83 Respiratory 20 20 Rate Blood Pressure 130/79 134/94 O2 Sat by Pulse 87 98 Oximetry - General Appearance General appearance: well-developed, well-nourished, appears stated age EENT: ATNC, PERRL, mucous membranes moist Neck: no JVD Respiratory: Present: Clear to Ascultation Cardiology: regular, S1S2 Gastrointestinal: normoactive bowel sounds Integumentary: no rash Neurologic: no focal deficit, alert and oriented x3, strength 5/5, CN 3-12 intact Psychiatric: mood/affect appropriate, cooperative - Lab 03/02/19 04:11 03/02/19 04:11 Most recent lab results Calcium 8.8 mg/dL (8.4-10.2) 03/02/19 04:11 Medications & Allergies - Medications Allergies/Adverse Reactions: Allergies No Known Allergies Allergy (Unverified 04/17/17 13:03) Home Medications: Home Medications Medication Instructions Recorded Confirmed Last Taken Type ARIPiprazole 5 mg PO QDAY #30 tablet 02/27/19 03/01/19 Unknown Rx Pantoprazole [Protonix TAB] 40 mg PO QDAY #30 tablet 02/27/19 03/01/19 Unknown Rx amLODIPine 10 mg PO QDAY #30 tablet 02/27/19 03/01/19 Unknown Rx hydrALAZINE [Apresoline TAB] 50 mg PO TID #90 tab 02/27/19 03/01/19 Unknown Rx Active Medications: Generic Name Dose Route Start Last Admin Trade Name Freq PRN Reason Stop Dose Admin Acetaminophen 650 mg 03/01/19 22:17 Tylenol PO Q4H PRN Pain MILD(1-3)/Fever >100.5/QUAN Amlodipine Besylate 10 mg 03/02/19 10:00 03/03/19 10:33 Amlodipine PO Not Given QDAY [facility] Aripiprazole 5 mg 03/02/19 10:00 03/03/19 10:38 Aripiprazole PO 5 mg QDAY [facility] Administration Enoxaparin Sodium 30 mg 03/02/19 10:00 03/03/19 10:34 Enoxaparin SUB-Q 30 mg QDAY [facility] Administration Epoetin Polo 10,000 unit 03/02/19 08:31 03/02/19 13:37 Procrit IV 10,000 unit LOKESH PRN Administration hemodialysis Heparin Sodium (Porcine) 1,000 unit 03/02/19 08:31 Heparin 10,000 Units/10 Ml IV LOKESH PRN hemodialysis Heparin Sodium (Porcine) 5,000 unit 03/02/19 08:31 Heparin IV LOKESH PRN hemodialysis Hydralazine HCl 50 mg 03/02/19 08:00 03/03/19 22:17 Apresoline PO 50 mg TID [facility] Administration Sodium Chloride 100 mls @ 999 mls/hr 03/02/19 08:31 Nacl 0.9% IV LOKESH PRN Hypotension Ondansetron HCl 4 mg 03/01/19 22:17 Zofran IV Q8H PRN Nausea And Vomiting Pantoprazole Sodium 40 mg 03/02/19 10:00 03/03/19 10:32 Protonix PO 40 mg QDAY [facility] Administration Sodium Chloride 10 ml 03/02/19 10:00 03/03/19 22:18 Sodium Chloride Flush Syringe 10 Ml IV 10 ml BID [facility] Administration Sodium Chloride 10 ml 03/01/19 22:17 Sodium Chloride Flush Syringe 10 Ml IV PRN PRN LINE FLUSH
[2019-03-04] MEDS ORDERED: SODIUM CHLORIDE*PRIMING MACHINE ONLY FOR DIALYSIS MC ONE ×2 (11:20→14:19)
[2019-03-04] MEDS: EPOETIN ALFA 10,000 UNIT/1 ML INJ IV PRN (12:51)
--- NOTE | 2019-03-04 13:37 | Progress Note ---
Assessment and Plan 58-year-old man history of hypertension, schizophrenia, bipolar, subarachnoid hemorrhage, status post frontal craniotomy with aneurysmal clip, end-stage renal disease on dialysis was sent from [facility] because he d id not have dialysis since he was discharged on Wednesday. He was discharged on Wednesday after prolonged stay. Was reported that he was denied by [facility] dialysis.he has no complaints, very poor historian. * Patient is able to speak but often choses not to * He previously was ambulatory but admitted last time with left sided weakness * Patient stay was prolonged due to placement issues * He remained clinically stable, was treated for seizures and placed on keppra, bacolfen discontinued * Bp meds were adjusted due hypotension * He was discharged after a dialysis place was established but returns because the dialysis centers medical lab tech instructor declined to now accept him MIKEL on CKD 4 - vasomotor nephropathy versus progression of underlying chronic medical disease -Nephrology consulted -Avoid nephrotoxic agents -Renally dose all meds -Nephrology initiated hemdialysis on 02/17 hx schizophrenia and bipolar - Abilify 5 mg PO daily, psych following -Hx Hypertension -BP uncontrolled. Continue to adjust medications as needed Hx Right subarachnoid hemorrhage, status post right frontal craniotomy Hx aneurysm, status post clipping -Continue supportive care -Neurology recommended outpatient follow Tobacco abuse -Current every day smoker -Counseled for cessation -Nicotine patch when necessary Moderate Protein Calorie Malnutrition Continue to encourage PO intake Thrombocytopenia. - cont to Monitor Bipolar/schizophrenia Continue aripipazole Hypertension Continue norvasc, hydralazine dvt/gi prophy Discharge once out pt dialysis chair is obtained Subjective Date of service: 03/04/19 Principal diagnosis: ESRD, schizophrenia, malnutrition, was of the opinion Interval history: No new complaints. On dialysis. Objective - Exam Narrative Exam: Constitutional: Well-nourished well-developed. In no distress Head: Normocephalic atraumatic Eyes: Pupils are equal round and reactive to light Nose: No enlarged turbinates, no septal deviation. Mouth: Moist mucous membranes. Neck: Supple no thyromegaly. No bruit. No JVD Heart: Regular rate and rhythm, S1-S2 normal. No rubs murmurs or gallop Lungs: Clear to auscultation bilaterally. no rales or rhonchi Abdomen: Soft, nontender. Bowel sound are present. Extremities: No edema, no cyanosis, no clubbing. Neuro: Alert oriented Oriented x3. No focal sensory or motor deficit. Skin: No rashes or hyperpigmented spots Musculoskeletal system: No joint pain or swelling Hematological: No petechia or subcutanous hemorrhages. Immunological: No multiple septic spots on the skin Lymphatic: No generalized lymphadenopathy Psychiatry: Euthymic. Calm. - Constitutional Vitals: Vital Signs - 12hr 03/04/19 03/04/19 03/04/19 05:47 09:15 09:30 Temperature 98.8 F 98.8 F Pulse Rate 83 80 85 Respiratory 20 18 Rate Blood Pressure 134/94 139/92 129/88 O2 Sat by Pulse 98 Oximetry O2 Sat by Pulse 97 Oximetry [ Bilateral Throughout] 03/04/19 03/04/19 03/04/19 09:45 10:00 10:15 Temperature Pulse Rate 76 92 H 95 H Respiratory Rate Blood Pressure 125/84 126/80 117/87 O2 Sat by Pulse Oximetry O2 Sat by Pulse Oximetry [ Bilateral Throughout] 03/04/19 03/04/19 03/04/19 10:30 10:45 11:00 Temperature Pulse Rate 96 H 108 H 121 H Respiratory Rate Blood Pressure 113/86 116/80 104/61 O2 Sat by Pulse Oximetry O2 Sat by Pulse Oximetry [ Bilateral Throughout] 03/04/19 03/04/19 03/04/19 11:05 11:15 11:30 Temperature Pulse Rate 109 H 108 H 110 H Respiratory Rate Blood Pressure 115/73 129/86 126/83 O2 Sat by Pulse Oximetry O2 Sat by Pulse Oximetry [ Bilateral Throughout] 03/04/19 03/04/19 03/04/19 11:45 12:00 12:15 Temperature Pulse Rate 115 H 119 H 65 Respiratory Rate Blood Pressure 113/73 109/75 114/87 O2 Sat by Pulse Oximetry O2 Sat by Pulse Oximetry [ Bilateral Throughout] 03/04/19 03/04/19 03/04/19 12:30 12:45 13:00 Temperature Pulse Rate 108 H 112 H 103 H Respiratory Rate Blood Pressure 105/50 120/75 118/62 O2 Sat by Pulse Oximetry O2 Sat by Pulse Oximetry [ Bilateral Throughout] 03/04/19 13:23 Temperature 98.2 F Pulse Rate 103 H Respiratory 20 Rate Blood Pressure 121/65 O2 Sat by Pulse Oximetry O2 Sat by Pulse 97 Oximetry [ Bilateral Throughout] - Labs CBC & Chem 7: 03/02/19 04:11 03/02/19 04:11
[2019-03-04] MEDS: hydrALAZINE 100 MG TAB PO SCH ×2 (18:30→22:36)
[2019-03-04] MEDS: ENOXAPARIN 30 MG/0.3 ML INJ SUB-Q SCH (18:31)
[2019-03-04] MEDS: amLODIPine 10 MG TAB PO SCH (18:36)
[2019-03-04] MEDS: ARIPiprazole 5 MG TAB PO SCH (18:37)
[2019-03-04] MEDS: PANTOPRAZOLE 40 MG TAB PO SCH (18:37)
[2019-03-05] MEDS: PANTOPRAZOLE 40 MG TAB PO SCH (09:13)
[2019-03-05] MEDS: ENOXAPARIN 30 MG/0.3 ML INJ SUB-Q SCH (09:13)
[2019-03-05] MEDS: hydrALAZINE 100 MG TAB PO SCH ×3 (09:13→21:51)
[2019-03-05] MEDS: ARIPiprazole 5 MG TAB PO SCH (09:13)
[2019-03-05] MEDS: amLODIPine 10 MG TAB PO SCH (09:14)
--- NOTE | 2019-03-05 10:14 | Progress Note ---
Assessment and Plan 58-year-old man history of hypertension, schizophrenia, bipolar, subarachnoid hemorrhage, status post frontal craniotomy with aneurysmal clip, end-stage renal disease on dialysis was sent from [facility] because he d id not have dialysis since he was discharged on Wednesday. He was discharged on Wednesday after prolonged stay. Was reported that he was denied by [facility] dialysis.he has no complaints, very poor historian. * Patient is able to speak but often choses not to * He previously was ambulatory but admitted last time with left sided weakness * Patient stay was prolonged due to placement issues * He remained clinically stable, was treated for seizures and placed on keppra, bacolfen discontinued * d/kassandra hydrallazin due to hypotension MIKEL on CKD 4 - vasomotor nephropathy versus progression of underlying chronic medical disease -Nephrology consulted -Avoid nephrotoxic agents -Renally dose all meds -Nephrology initiated hemdialysis on 02/17 hx schizophrenia and bipolar - Abilify 5 mg PO daily, psych following -Hx Hypertension -BP uncontrolled. Continue to adjust medications as needed Hx Right subarachnoid hemorrhage, status post right frontal craniotomy Hx aneurysm, status post clipping -Continue supportive care -Neurology recommended outpatient follow Tobacco abuse -Current every day smoker -Counseled for cessation -Nicotine patch when necessary Moderate Protein Calorie Malnutrition Continue to encourage PO intake Thrombocytopenia. - cont to Monitor Bipolar/schizophrenia Continue aripipazole Hypertension Continue norvasc, hydralazine dvt/gi prophy Discharge once out pt dialysis chair is obtained Subjective Date of service: 03/05/19 Principal diagnosis: ESRD, schizophrenia, malnutrition, was of the opinion Interval history: No new complaints. Minimal verbal output. Objective - Exam Narrative Exam: Constitutional: Well-nourished well-developed. In no distress Head: Normocephalic atraumatic Eyes: Pupils are equal round and reactive to light Nose: No enlarged turbinates, no septal deviation. Mouth: Moist mucous membranes. Neck: Supple no thyromegaly. No bruit. No JVD Heart: Regular rate and rhythm, S1-S2 normal. No rubs murmurs or gallop Lungs: Clear to auscultation bilaterally. no rales or rhonchi Abdomen: Soft, nontender. Bowel sound are present. Extremities: No edema, no cyanosis, no clubbing. Neuro: Alert oriented Oriented x1. No focal sensory or motor deficit. Skin: No rashes or hyperpigmented spots Musculoskeletal system: No joint pain or swelling Hematological: No petechia or subcutanous hemorrhages. Immunological: No multiple septic spots on the skin Lymphatic: No generalized lymphadenopathy Psychiatry: opens eye to voice command only. - Constitutional Vitals: Vital Signs - 12hr 03/05/19 03/05/19 04:54 09:14 Temperature 99.3 F Pulse Rate 97 H Respiratory 18 Rate Blood Pressure 107/65 123/87 O2 Sat by Pulse 99 Oximetry - Labs CBC & Chem 7: 03/02/19 04:11 03/02/19 04:11
--- NOTE | 2019-03-05 16:52 | Progress Note ---
Assessment and Plan - Patient Problems (1) End-stage renal disease needing dialysis Current Visit: Yes Status: Acute Plan to address problem: cont HD on TTS schedule. outpatient HD arrangement as per case management (2) Hypertension associated with stage 5 chronic kidney disease due to type 2 diabetes mellitus Current Visit: Yes Status: Acute Plan to address problem: BP controlled. monitor BP on current meds (3) Anemia Current Visit: No Status: Acute Plan to address problem: cont EPO with HD (4) Schizoaffective disorder Current Visit: No Status: Chronic Plan to address problem: follow psychiatry recommendations Subjective Date of service: 03/05/19 Principal diagnosis: ESRD, schizophrenia, malnutrition, was of the opinion Interval history: pt awake, alert in no acute distress Objective - Vital Signs Vital signs: Vital Signs - 12hr 03/05/19 03/05/19 03/05/19 04:54 09:13 09:14 Temperature 99.3 F Pulse Rate 97 H 101 H Respiratory 18 Rate Blood Pressure 107/65 123/87 123/87 O2 Sat by Pulse 99 99 Oximetry 03/05/19 11:58 Temperature 98.0 F Pulse Rate 100 H Respiratory 18 Rate Blood Pressure 109/71 O2 Sat by Pulse 98 Oximetry - General Appearance General appearance: well-developed, well-nourished, appears stated age EENT: ATNC, PERRL, mucous membranes moist Neck: no JVD Respiratory: Present: Clear to Ascultation Cardiology: regular, S1S2 Gastrointestinal: normoactive bowel sounds Integumentary: no rash Neurologic: no focal deficit, alert and oriented x3, strength 5/5, CN 3-12 intact Psychiatric: mood/affect appropriate, cooperative - Lab 03/02/19 04:11 03/02/19 04:11 Most recent lab results Calcium 8.8 mg/dL (8.4-10.2) 03/02/19 04:11 Medications & Allergies - Medications Allergies/Adverse Reactions: Allergies No Known Allergies Allergy (Unverified 04/17/17 13:03) Home Medications: Home Medications Medication Instructions Recorded Confirmed Last Taken Type ARIPiprazole 5 mg PO QDAY #30 tablet 02/27/19 03/01/19 Unknown Rx Pantoprazole [Protonix TAB] 40 mg PO QDAY #30 tablet 02/27/19 03/01/19 Unknown Rx amLODIPine 10 mg PO QDAY #30 tablet 02/27/19 03/01/19 Unknown Rx hydrALAZINE [Apresoline TAB] 50 mg PO TID #90 tab 02/27/19 03/01/19 Unknown Rx Active Medications: Generic Name Dose Route Start Last Admin Trade Name Freq PRN Reason Stop Dose Admin Acetaminophen 650 mg 03/01/19 22:17 Tylenol PO Q4H PRN Pain MILD(1-3)/Fever >100.5/QUAN Amlodipine Besylate 10 mg 03/02/19 10:00 03/05/19 09:14 Amlodipine PO 10 mg QDAY ENOC Administration Aripiprazole 5 mg 03/02/19 10:00 03/05/19 09:13 Aripiprazole PO 5 mg QDAY ENOC Administration Enoxaparin Sodium 30 mg 03/02/19 10:00 03/05/19 09:13 Enoxaparin SUB-Q 30 mg QDAY ENOC Administration Epoetin Polo 10,000 unit 03/02/19 08:31 03/04/19 12:51 Procrit IV 10,000 unit LOKESH PRN Administration hemodialysis Heparin Sodium (Porcine) 1,000 unit 03/02/19 08:31 Heparin 10,000 Units/10 Ml IV LOKESH PRN hemodialysis Heparin Sodium (Porcine) 5,000 unit 03/02/19 08:31 Heparin IV LOKESH PRN hemodialysis Hydralazine HCl 50 mg 03/02/19 08:00 03/05/19 13:24 Apresoline PO 50 mg TID ENOC Administration Sodium Chloride 100 mls @ 999 mls/hr 03/02/19 08:31 Nacl 0.9% IV LOKESH PRN Hypotension Ondansetron HCl 4 mg 03/01/19 22:17 Zofran IV Q8H PRN Nausea And Vomiting Pantoprazole Sodium 40 mg 03/02/19 10:00 03/05/19 09:13 Protonix PO 40 mg QDAY ENOC Administration Sodium Chloride 10 ml 03/02/19 10:00 03/05/19 09:14 Sodium Chloride Flush Syringe 10 Ml IV 10 ml BID ENOC Administration Sodium Chloride 10 ml 03/01/19 22:17 Sodium Chloride Flush Syringe 10 Ml IV PRN PRN LINE FLUSH
[2019-03-05] MEDS ORDERED: hydrALAZINE 25 MG TAB PO SCH (21:00)
--- NOTE | 2019-03-06 09:00 | Progress Note ---
Assessment and Plan 58-year-old man history of hypertension, schizophrenia, bipolar, subarachnoid hemorrhage, status post frontal craniotomy with aneurysmal clip, end-stage renal disease on dialysis was sent from [facility] because he d id not have dialysis since he was discharged on Wednesday. He was discharged on Wednesday after prolonged stay. Was reported that he was denied by [facility] dialysis.he has no complaints, very poor historian. * He previously was ambulatory but admitted last time with left sided weakness * Patient stay was prolonged due to placement issues * He remained clinically stable, was treated for seizures and placed on keppra, bacolfen discontinued * d/kassandra hydrallazin due to hypotension MIKEL on CKD 4 - vasomotor nephropathy versus progression of underlying chronic medical disease -Nephrology consulted -Avoid nephrotoxic agents -Renally dose all meds -Nephrology initiated hemdialysis on 02/17 hx schizophrenia and bipolar - Abilify 5 mg PO daily, psych following -Hx Hypertension -BP uncontrolled. Continue to adjust medications as needed Hx Right subarachnoid hemorrhage, status post right frontal craniotomy Hx aneurysm, status post clipping -Continue supportive care -Neurology recommended outpatient follow Tobacco abuse -Current every day smoker -Counseled for cessation -Nicotine patch when necessary Moderate Protein Calorie Malnutrition Continue to encourage PO intake Bipolar/schizophrenia Continue aripipazole Hypertension Continue norvasc, hydralazine dvt/gi prophy Discharge once out pt dialysis chair is obtained Subjective Date of service: 03/06/19 Principal diagnosis: ESRD, schizophrenia, malnutrition, was of the opinion Interval history: No new complaints. Minimal verbal output. Remains afebrile. Discussed with patient's nurse. Overnight event reported. Objective - Exam Narrative Exam: Constitutional: Well-nourished well-developed. In no distress Head: Normocephalic atraumatic Eyes: Pupils are equal round and reactive to light Nose: No enlarged turbinates, no septal deviation. Mouth: Moist mucous membranes. Neck: Supple no thyromegaly. No bruit. No JVD Heart: Regular rate and rhythm, S1-S2 normal. No rubs murmurs or gallop Lungs: Clear to auscultation bilaterally. no rales or rhonchi Abdomen: Soft, nontender. Bowel sound are present. Extremities: No edema, no cyanosis, no clubbing. Neuro: Alert oriented Oriented x1. Skin: No rashes or hyperpigmented spots Musculoskeletal system: No joint pain or swelling Hematological: No petechia or subcutanous hemorrhages. Immunological: No multiple septic spots on the skin Lymphatic: No generalized lymphadenopathy Psychiatry: opens eye to voice command only. - Constitutional Vitals: Vital Signs - 12hr 03/05/19 03/05/19 03/06/19 21:40 21:49 05:18 Temperature 99.4 F 97.8 F Pulse Rate 105 H 105 H 89 Respiratory 19 20 Rate Blood Pressure 126/82 126/82 127/82 O2 Sat by Pulse 100 98 Oximetry - Labs CBC & Chem 7: 03/02/19 04:11 03/02/19 04:11
[2019-03-06] MEDS: ARIPiprazole 5 MG TAB PO SCH (10:00)
[2019-03-06] MEDS: amLODIPine 10 MG TAB PO SCH (10:00)
[2019-03-06] MEDS: PANTOPRAZOLE 40 MG TAB PO SCH (10:04)
[2019-03-06] MEDS: ENOXAPARIN 30 MG/0.3 ML INJ SUB-Q SCH (10:05)
--- NOTE | 2019-03-06 17:20 | Progress Note ---
Assessment and Plan - Patient Problems (1) End-stage renal disease needing dialysis Current Visit: Yes Status: Acute Plan to address problem: cont HD on TTS schedule. outpatient HD arrangement as per case management (2) Hypertension associated with stage 5 chronic kidney disease due to type 2 diabetes mellitus Current Visit: Yes Status: Acute Plan to address problem: BP controlled. monitor BP on current meds (3) Anemia Current Visit: No Status: Acute Plan to address problem: cont EPO with HD (4) Schizoaffective disorder Current Visit: No Status: Chronic Plan to address problem: follow psychiatry recommendations Subjective Date of service: 03/06/19 Principal diagnosis: ESRD, schizophrenia, malnutrition, was of the opinion Interval history: pt awake, alert in no acute distress Objective - Vital Signs Vital signs: Vital Signs - 12hr 03/06/19 03/06/19 03/06/19 10:00 10:09 11:56 Temperature 98.8 F Pulse Rate 106 H 113 H 105 H Respiratory 22 18 Rate Blood Pressure 119/69 119/69 115/81 O2 Sat by Pulse 99 96 Oximetry 03/06/19 16:16 Temperature 99.0 F Pulse Rate 103 H Respiratory 16 Rate Blood Pressure 109/69 O2 Sat by Pulse 97 Oximetry - General Appearance General appearance: well-developed, well-nourished, appears stated age EENT: ATNC, PERRL, mucous membranes moist Neck: no JVD Respiratory: Present: Clear to Ascultation Cardiology: regular, S1S2 Gastrointestinal: normoactive bowel sounds Integumentary: no rash, other (no edema ) Neurologic: no focal deficit, alert and oriented x3, strength 5/5, CN 3-12 intact Psychiatric: mood/affect appropriate, cooperative - Lab 03/02/19 04:11 03/02/19 04:11 Most recent lab results Calcium 8.8 mg/dL (8.4-10.2) 03/02/19 04:11 Medications & Allergies - Medications Allergies/Adverse Reactions: Allergies No Known Allergies Allergy (Unverified 04/17/17 13:03) Home Medications: Home Medications Medication Instructions Recorded Confirmed Last Taken Type ARIPiprazole 5 mg PO QDAY #30 tablet 02/27/19 03/01/19 Unknown Rx Pantoprazole [Protonix TAB] 40 mg PO QDAY #30 tablet 02/27/19 03/01/19 Unknown Rx amLODIPine 10 mg PO QDAY #30 tablet 02/27/19 03/01/19 Unknown Rx hydrALAZINE [Apresoline TAB] 50 mg PO TID #90 tab 02/27/19 03/01/19 Unknown Rx Active Medications: Generic Name Dose Route Start Last Admin Trade Name Freq PRN Reason Stop Dose Admin Acetaminophen 650 mg 03/01/19 22:17 Tylenol PO Q4H PRN Pain MILD(1-3)/Fever >100.5/QUAN Amlodipine Besylate 10 mg 03/02/19 10:00 03/06/19 10:00 Amlodipine PO 10 mg QDAY ENOC Administration Aripiprazole 5 mg 03/02/19 10:00 03/06/19 10:00 Aripiprazole PO 5 mg QDAY ENOC Administration Enoxaparin Sodium 30 mg 03/02/19 10:00 03/06/19 10:05 Enoxaparin SUB-Q 30 mg QDAY ENOC Administration Epoetin Polo 10,000 unit 03/02/19 08:31 03/04/19 12:51 Procrit IV 10,000 unit LOKESH PRN Administration hemodialysis Heparin Sodium (Porcine) 1,000 unit 03/02/19 08:31 Heparin 10,000 Units/10 Ml IV LOKESH PRN hemodialysis Heparin Sodium (Porcine) 5,000 unit 03/02/19 08:31 Heparin IV LOKESH PRN hemodialysis Sodium Chloride 100 mls @ 999 mls/hr 03/02/19 08:31 Nacl 0.9% IV LOKESH PRN Hypotension Ondansetron HCl 4 mg 03/01/19 22:17 Zofran IV Q8H PRN Nausea And Vomiting Pantoprazole Sodium 40 mg 03/02/19 10:00 03/06/19 10:04 Protonix PO 40 mg QDAY ENOC Administration Sodium Chloride 10 ml 03/02/19 10:00 03/06/19 10:30 Sodium Chloride Flush Syringe 10 Ml IV 10 ml BID ENOC Administration Sodium Chloride 10 ml 03/01/19 22:17 Sodium Chloride Flush Syringe 10 Ml IV PRN PRN LINE FLUSH
[2019-03-07] MEDS: ENOXAPARIN 30 MG/0.3 ML INJ SUB-Q SCH (10:12)
[2019-03-07] MEDS: ARIPiprazole 5 MG TAB PO SCH (10:12)
[2019-03-07] MEDS: amLODIPine 10 MG TAB PO SCH (10:12)
[2019-03-07] MEDS: PANTOPRAZOLE 40 MG TAB PO SCH (10:12)
--- NOTE | 2019-03-07 13:43 | Progress Note ---
Assessment and Plan - Patient Problems (1) End-stage renal disease needing dialysis Current Visit: Yes Status: Acute Plan to address problem: cont HD on TTS schedule. outpatient HD arrangement as per case management (2) Hypertension associated with stage 5 chronic kidney disease due to type 2 diabetes mellitus Current Visit: Yes Status: Acute Plan to address problem: BP controlled. monitor BP on current meds (3) Anemia Current Visit: No Status: Acute Plan to address problem: cont EPO with HD (4) Schizoaffective disorder Current Visit: No Status: Chronic Plan to address problem: follow psychiatry recommendations Subjective Date of service: 03/07/19 Principal diagnosis: ESRD, schizophrenia, malnutrition, was of the opinion Interval history: pt awake, alert in no acute distress Objective - Vital Signs Vital signs: Vital Signs - 12hr 03/07/19 06:03 Temperature 98.9 F Pulse Rate 81 Respiratory 18 Rate Blood Pressure 134/92 O2 Sat by Pulse 100 Oximetry - General Appearance General appearance: well-developed, well-nourished, appears stated age EENT: ATNC, PERRL, mucous membranes moist Neck: no JVD Respiratory: Present: Clear to Ascultation Cardiology: regular, S1S2 Gastrointestinal: normoactive bowel sounds Integumentary: no rash, other (no edema ) Neurologic: no focal deficit, alert and oriented x3, strength 5/5, CN 3-12 intact Psychiatric: mood/affect appropriate, cooperative - Lab 03/02/19 04:11 03/02/19 04:11 Most recent lab results Calcium 8.8 mg/dL (8.4-10.2) 03/02/19 04:11 Medications & Allergies - Medications Allergies/Adverse Reactions: Allergies No Known Allergies Allergy (Unverified 04/17/17 13:03) Home Medications: Home Medications Medication Instructions Recorded Confirmed Last Taken Type ARIPiprazole 5 mg PO QDAY #30 tablet 02/27/19 03/01/19 Unknown Rx Pantoprazole [Protonix TAB] 40 mg PO QDAY #30 tablet 02/27/19 03/01/19 Unknown Rx amLODIPine 10 mg PO QDAY #30 tablet 02/27/19 03/01/19 Unknown Rx hydrALAZINE [Apresoline TAB] 50 mg PO TID #90 tab 02/27/19 03/01/19 Unknown Rx Active Medications: Generic Name Dose Route Start Last Admin Trade Name Freq PRN Reason Stop Dose Admin Acetaminophen 650 mg 03/01/19 22:17 Tylenol PO Q4H PRN Pain MILD(1-3)/Fever >100.5/QUAN Amlodipine Besylate 10 mg 03/02/19 10:00 03/07/19 10:12 Amlodipine PO Not Given QDAY [facility] Aripiprazole 5 mg 03/02/19 10:00 03/07/19 10:12 Aripiprazole PO Not Given QDAY [facility] Enoxaparin Sodium 30 mg 03/02/19 10:00 03/07/19 10:12 Enoxaparin SUB-Q Not Given QDAY [facility] Epoetin Polo 10,000 unit 03/02/19 08:31 03/04/19 12:51 Procrit IV 10,000 unit LOKESH PRN Administration hemodialysis Heparin Sodium (Porcine) 1,000 unit 03/02/19 08:31 Heparin 10,000 Units/10 Ml IV LOKESH PRN hemodialysis Heparin Sodium (Porcine) 5,000 unit 03/02/19 08:31 Heparin IV LOKESH PRN hemodialysis Sodium Chloride 100 mls @ 999 mls/hr 03/02/19 08:31 Nacl 0.9% IV LOKESH PRN Hypotension Ondansetron HCl 4 mg 03/01/19 22:17 Zofran IV Q8H PRN Nausea And Vomiting Pantoprazole Sodium 40 mg 03/02/19 10:00 03/07/19 10:12 Protonix PO Not Given QDAY [facility] Sodium Chloride 10 ml 03/02/19 10:00 03/06/19 10:30 Sodium Chloride Flush Syringe 10 Ml IV 10 ml BID ENOC Administration Sodium Chloride 10 ml 03/01/19 22:17 Sodium Chloride Flush Syringe 10 Ml IV PRN PRN LINE FLUSH
--- NOTE | 2019-03-07 20:13 | Progress Note ---
Assessment and Plan 58-year-old man history of hypertension, schizophrenia, bipolar, subarachnoid hemorrhage, status post frontal craniotomy with aneurysmal clip, end-stage renal disease on dialysis was sent from [facility] because he d id not have dialysis since he was discharged on Wednesday. He was discharged on Wednesday after prolonged stay. Was reported that he was denied by [facility] dialysis.he has no complaints, very poor historian. * He previously was ambulatory but admitted last time with left sided weakness * Patient stay was prolonged due to placement issues * He remained clinically stable, was treated for seizures and placed on keppra, bacolfen discontinued * d/kassandra hydrallazin due to hypotension MIKEL on CKD 4 - vasomotor nephropathy versus progression of underlying chronic medical disease -Nephrology consulted -Avoid nephrotoxic agents -Renally dose all meds -Nephrology initiated hemdialysis on 02/17 hx schizophrenia and bipolar - Abilify 5 mg PO daily, psych following -Hx Hypertension -BP controlled. Continue to adjust medications as needed Hx Right subarachnoid hemorrhage, status post right frontal craniotomy Hx aneurysm, status post clipping -Continue supportive care -Neurology recommended outpatient follow Tobacco abuse -Current every day smoker -Counseled for cessation -Nicotine patch when necessary Moderate Protein Calorie Malnutrition Continue to encourage PO intake Bipolar/schizophrenia Continue aripipazole Hypertension Continue norvasc, hydralazine dvt/gi prophy Discharge: Weight outpatient dialysis placement before discharge Subjective Date of service: 03/07/19 Principal diagnosis: ESRD, schizophrenia, malnutrition, was of the opinion Interval history: No new complaints. Minimal verbal output. Remains afebrile. Discussed with patient's nurse. Overnight event reported to me. Objective - Exam Narrative Exam: Constitutional: Well-nourished well-developed. In no distress Head: Normocephalic atraumatic Eyes: Pupils are equal round and reactive to light Nose: No enlarged turbinates, no septal deviation. Mouth: Moist mucous membranes. Neck: Supple no thyromegaly. No bruit. No JVD Heart: Regular rate and rhythm, S1-S2 normal. No rubs murmurs or gallop Lungs: Clear to auscultation bilaterally. no rales or rhonchi Abdomen: Soft, nontender. Bowel sound are present. Extremities: No edema, no cyanosis, no clubbing. Neuro: Alert oriented Oriented x1. Skin: No rashes or hyperpigmented spots Musculoskeletal system: No joint pain or swelling Hematological: No petechia or subcutanous hemorrhages. Immunological: No multiple septic spots on the skin Lymphatic: No generalized lymphadenopathy Psychiatry: opens eye to voice command only. - Constitutional Vitals: Vital Signs - 12hr 03/07/19 03/07/19 03/07/19 09:30 09:40 09:45 Temperature 98.2 F Pulse Rate 89 85 80 Respiratory 20 Rate Blood Pressure 160/97 151/97 160/97 O2 Sat by Pulse Oximetry 03/07/19 03/07/19 03/07/19 10:00 10:15 10:30 Temperature Pulse Rate 81 85 83 Respiratory Rate Blood Pressure 162/100 145/85 157/97 O2 Sat by Pulse 98 Oximetry 03/07/19 03/07/19 03/07/19 10:45 11:00 11:15 Temperature Pulse Rate 90 93 H 96 H Respiratory Rate Blood Pressure 156/98 176/100 161/102 O2 Sat by Pulse Oximetry 03/07/19 03/07/19 03/07/19 11:30 11:45 12:00 Temperature Pulse Rate 100 H 100 H 97 H Respiratory Rate Blood Pressure 156/98 155/98 143/90 O2 Sat by Pulse Oximetry 03/07/19 03/07/19 03/07/19 12:15 12:30 12:45 Temperature Pulse Rate 98 H 96 H 99 H Respiratory Rate Blood Pressure 137/92 161/81 165/102 O2 Sat by Pulse Oximetry 03/07/19 03/07/19 03/07/19 13:00 16:13 18:25 Temperature 97 F L 98.0 F 99.6 F Pulse Rate 101 H 103 H 108 H Respiratory 20 20 20 Rate Blood Pressure 164/104 154/89 157/114 O2 Sat by Pulse 99 98 Oximetry - Labs CBC & Chem 7: 03/02/19 04:11 03/02/19 04:11
[2019-03-08 08:51] LABS: Basophils % (Auto) 0.6 % (0.0-1.8); Eosinophils # (Auto) 0.6 K/mm3 (0.0-0.4); Eosinophils % (Auto) 9.1 % (0.0-4.3); Hematocrit 26.2 % (35.5-45.6); Hemoglobin 8.3 gm/dl (11.8-15.2); Lymphocytes # (Auto) 1.3 K/mm3 (1.2-5.4); Mean Corpuscular HGB Conc 32 % (32-34); Mean Corpuscular Volume 89 fl (84-94); Monocytes # (Auto) 0.7 K/mm3 (0.0-0.8); Monocytes % (Auto) 10.6 % (0.0-7.3); Platelet Count 201 K/mm3 (140-440); Red Blood Count 2.95 M/mm3 (3.65-5.03); Red Cell Distribution Width 13.3 % (13.2-15.2)
[2019-03-08 09:16] LABS: Albumin 3.2 g/dL (3.9-5)
[2019-03-08] MEDS: amLODIPine 10 MG TAB PO SCH (09:39)
[2019-03-08] MEDS: ENOXAPARIN 30 MG/0.3 ML INJ SUB-Q SCH (09:39)
[2019-03-08] MEDS: PANTOPRAZOLE 40 MG TAB PO SCH (09:40)
[2019-03-08] MEDS: ARIPiprazole 5 MG TAB PO SCH (10:53)
--- NOTE | 2019-03-08 12:46 | Progress Note ---
Assessment and Plan Assessment and plan: 58-year-old man history of hypertension, schizophrenia, bipolar, subarachnoid hemorrhage, status post frontal craniotomy with aneurysmal clip, end-stage renal disease on dialysis was sent from [facility] because he did not have dialysis since he was discharged on Wednesday. He was discharged on Wednesday after prolonged stay. Was reported that he was denied by [facility] dialysis.he has no complaints, very poor historian. * Patient is able to speak but often choses not to * He previously was ambulatory but admitted last time with left sided weakness * Patient stay was prolonged due to placement issues * He remained clinically stable, was treated for seizures and placed on keppra, bacolfen discontinued * Bp meds were adjusted due hypotension * He was discharged after a dialysis place was established but returns because the dialysis centers medical review specialist declined to now accept him * Hydralazin stopped MIKEL on CKD 4 - vasomotor nephropathy versus progression of underlying chronic medical disease -Nephrology consulted -Avoid nephrotoxic agents -Renally dose all meds -Nephrology initiated hemdialysis on 02/17 hx schizophrenia and bipolar - Abilify 5 mg PO daily, psych following -Hx Hypertension -BP uncontrolled. Continue to adjust medications as needed Hx Right subarachnoid hemorrhage, status post right frontal craniotomy Hx aneurysm, status post clipping -Continue supportive care -Neurology recommended outpatient follow Tobacco abuse -Current every day smoker -Counseled for cessation -Nicotine patch when necessary Moderate Protein Calorie Malnutrition Continue to encourage PO intake Thrombocytopenia. - cont to Monitor Bipolar/schizophrenia Continue aripipazole Hypertension Continue norvasc, hydralazine dvt/gi prophy Discharge once dialysis center obtained History Interval history: Patient seen and examined, resting comfortable, still with some intermittent confusion but appears to be her baseline. Family visiting today Hospitalist Physical - Physical exam Narrative exam: Gen. appearance: Patient lying in bed, no apparent distress HEENT: Normocephalic, atraumatic, pupils equally round and reactive to light, extraocular movement intact, and no sclericterus, No JVD or thyromegaly or nodule,neck supple, no carotid bruit ,mucous membranes moist, no exudate or erythema Heart: S1, S2, regular rate and rhythm Lungs: Clear bilaterally, breathing comfortable Abdomen: Positive bowel sounds, nontender, nondistended, no organomegaly Extremity: no edema, cyanosis, clubbing Skin: No rash, nodules, warm, dry Neuro: speech is fluent, moves extremities, sensory intact - Constitutional Vitals: Temp Pulse Resp BP Pulse Ox 98.0 F 89 16 138/103 100 03/08/19 11:28 03/08/19 09:39 03/08/19 11:28 03/08/19 11:28 03/08/19 06:01 Results - Labs CBC & Chem 7: 03/08/19 07:49 03/08/19 07:49 Labs: Laboratory Last Values WBC 6.7 K/mm3 (4.5-11.0) 03/08/19 07:49 RBC 2.95 M/mm3 (3.65-5.03) L 03/08/19 07:49 Hgb 8.3 gm/dl (11.8-15.2) L 03/08/19 07:49 Hct 26.2 % (35.5-45.6) L 03/08/19 07:49 MCV 89 fl (84-94) 03/08/19 07:49 MCH 28 pg (28-32) 03/08/19 07:49 MCHC 32 % (32-34) 03/08/19 07:49 RDW 13.3 % (13.2-15.2) 03/08/19 07:49 Plt Count 201 K/mm3 (140-440) 03/08/19 07:49 Lymph % (Auto) 19.0 % (13.4-35.0) 03/08/19 07:49 Thomas % (Auto) 10.6 % (0.0-7.3) H 03/08/19 07:49 Eos % (Auto) 9.1 % (0.0-4.3) H 03/08/19 07:49 Baso % (Auto) 0.6 % (0.0-1.8) 03/08/19 07:49 Lymph # 1.3 K/mm3 (1.2-5.4) 03/08/19 07:49 Thomas # 0.7 K/mm3 (0.0-0.8) 03/08/19 07:49 Eos # 0.6 K/mm3 (0.0-0.4) H 03/08/19 07:49 Baso # 0.0 K/mm3 (0.0-0.1) 03/08/19 07:49 Seg Neutrophils % 60.7 % (40.0-70.0) 03/08/19 07:49 Seg Neutrophils # 4.1 K/mm3 (1.8-7.7) 03/08/19 07:49 Sodium 139 mmol/L (137-145) 03/08/19 07:49 Potassium 3.8 mmol/L (3.6-5.0) 03/08/19 07:49 Chloride 95.5 mmol/L (98-107) L 03/08/19 07:49 Carbon Dioxide 26 mmol/L (22-30) 03/08/19 07:49 Anion Gap 21 mmol/L 03/08/19 07:49 BUN 33 mg/dL (9-20) H 03/08/19 07:49 Creatinine 6.1 mg/dL (0.8-1.5) H 03/08/19 07:49 Estimated GFR 11 ml/min 03/08/19 07:49 BUN/Creatinine Ratio 5 % 03/08/19 07:49 Glucose 82 mg/dL (75-100) 03/08/19 07:49 POC Glucose 85 (70-105) 03/04/19 09:09 Calcium 9.0 mg/dL (8.4-10.2) 03/08/19 07:49 Phosphorus 5.00 mg/dL (2.5-4.5) H 03/08/19 07:49 Magnesium 2.00 mg/dL (1.7-2.3) 03/08/19 07:49 Total Bilirubin 0.30 mg/dL (0.1-1.2) 03/08/19 07:49 AST 14 units/L (5-40) 03/08/19 07:49 ALT 10 units/L (7-56) 03/08/19 07:49 Alkaline Phosphatase 59 units/L (35-129) 03/08/19 07:49 Total Protein 7.1 g/dL (6.3-8.2) 03/08/19 07:49 Albumin 3.2 g/dL (3.9-5) L 03/08/19 07:49 Albumin/Globulin Ratio 0.8 % 03/08/19 07:49 Active Medications - Current Medications Current Medications: Generic Name Dose Route Start Last Admin Trade Name Freq PRN Reason Stop Dose Admin Acetaminophen 650 mg 03/01/19 22:17 Tylenol PO Q4H PRN Pain MILD(1-3)/Fever >100.5/QUAN Amlodipine Besylate 10 mg 03/02/19 10:00 03/08/19 09:39 Amlodipine PO 10 mg QDAY ENOC Administration Aripiprazole 5 mg 03/02/19 10:00 03/08/19 10:53 Aripiprazole PO 5 mg QDAY ENOC Administration Enoxaparin Sodium 30 mg 03/02/19 10:00 03/08/19 09:39 Enoxaparin SUB-Q 30 mg QDAY ENOC Administration Epoetin Polo 10,000 unit 03/02/19 08:31 03/04/19 12:51 Procrit IV 10,000 unit LOKESH PRN Administration hemodialysis Heparin Sodium (Porcine) 1,000 unit 03/02/19 08:31 Heparin 10,000 Units/10 Ml IV LOKESH PRN hemodialysis Heparin Sodium (Porcine) 5,000 unit 03/02/19 08:31 Heparin IV LOKESH PRN hemodialysis Sodium Chloride 100 mls @ 999 mls/hr 03/02/19 08:31 Nacl 0.9% IV LOKESH PRN Hypotension Ondansetron HCl 4 mg 03/01/19 22:17 Zofran IV Q8H PRN Nausea And Vomiting Pantoprazole Sodium 40 mg 03/02/19 10:00 03/08/19 09:40 Protonix PO 40 mg QDAY ENOC Administration Sodium Chloride 10 ml 03/02/19 10:00 03/08/19 09:40 Sodium Chloride Flush Syringe 10 Ml IV 10 ml BID ENOC Administration Sodium Chloride 10 ml 03/01/19 22:17 Sodium Chloride Flush Syringe 10 Ml IV PRN PRN LINE FLUSH Nutrition/Malnutrition Assess - Dietary Evaluation Nutrition/Malnutrition Findings: Nutrition Notes Start: 03/02/19 09:43 Freq: Status: Active Protocol: Document 03/05/19 12:47 LM (Rec: 03/05/19 12:53 LM [email or web address]) Nutrition Notes Initial or Follow up Reassessment Current Diagnosis CKD (stage V CKD),Hypertension Other Pertinent Diagnosis hematochezia Current Diet renal diet Labs/Tests No new labs Pertinent Medications reviewed Height 5 ft 6 in Weight 56.9 kg Usual Body Weight 63.6 kg [place] Body Weight (kg) 64.54 BMI 20.2 Weight Status Appropriate Subjective/Other Track Sweeper feeding pt at time of visit. Pt eating 100%. Tech reports pt with good appetite. Nepro not consumed at time of visit but tech stated pt likes the Nepro. Percent of energy/protein needs met: 100%/100% Burn Absent Trauma Absent GI Symptoms None Food Allergy No Current % PO Good (75-100%) Minimum of two criteria Yes Interpretation of Weight Loss (severe) >2% in 1 week Muscle Mass Mild Depletion (non-severe) #1 Nutrition Diagnosis Malnutrition Diagnosis Progress(for reassessment Continues documentation) Is patient on ventilator? No Is Patient Ambulatory and/or Out of Bed No REE-([facility]-confined to bed) 1597.080 Calculation Used for Recommendations [facility] Additional Notes Protein needs: >67 g (>1.2g/ kg) Fluid needs: 1000 - 1500 mL Nutrition Intervention Change Diet Order: continue renal diet Add Supplement/Snack (indicate name/kcal Nepro BID /protein ) Provides kCal: 850 Provides Protein (gm) 38 Goal #1 continue to meet at least 80% of dietary needs Anticipated Discharge Needs: Renal diet, w/ Nepro Supplement BID Follow-Up By: 03/13/19 Additional Comments F/U for PO/ONS intakes
--- NOTE | 2019-03-08 18:11 | Progress Note ---
Assessment and Plan - Patient Problems (1) End-stage renal disease needing dialysis Current Visit: Yes Status: Acute Plan to address problem: Continue hemodialysis on a Wednesday, and Wednesday schedule. manager army to assist with placement at [facility] dialysis. Awaiting placement (2) Anemia in end-stage renal disease Current Visit: Yes Status: Acute Plan to address problem: Give Erythropoetin on dialysis (3) Hypertension associated with stage 5 chronic kidney disease due to type 2 diabetes mellitus Current Visit: Yes Status: Acute Plan to address problem: Follow-up blood pressure on current medications (4) Schizoaffective disorder Current Visit: Yes Status: Acute Plan to address problem: Continue management by psychiatrist Subjective Date of service: 03/08/19 Principal diagnosis: ESRD, schizophrenia, malnutrition, was of the opinion Interval history: Patient seen lying in bed. He has no complaints. Objective - Exam Narrative Exam: Middle-aged -[place] male lying in bed in no acute distress HEENT: NCAT, pink oral mucous membrane Neck: Supple, no venous distention CVS: S1S2 RRR with no murmur, rub or gallop Chest: Clear to auscultation Abdomen: Protuberant, soft, nontender, no organomegaly, bowel sounds are present Extremities: No edema Neuro: Awake, alert - Vital Signs Vital signs: Vital Signs - 12hr 03/08/19 03/08/19 03/08/19 09:39 09:40 11:28 Temperature 98.0 F Pulse Rate 89 Respiratory 16 Rate Blood Pressure 127/88 127/88 138/103 03/08/19 14:09 Temperature Pulse Rate Respiratory Rate Blood Pressure 119/78 - Lab 03/08/19 07:49 03/08/19 07:49 Most recent lab results Calcium 9.0 mg/dL (8.4-10.2) 03/08/19 07:49 Phosphorus 5.00 mg/dL (2.5-4.5) H 03/08/19 07:49 Magnesium 2.00 mg/dL (1.7-2.3) 03/08/19 07:49 Medications & Allergies - Medications Allergies/Adverse Reactions: Allergies No Known Allergies Allergy (Unverified 04/17/17 13:03) Home Medications: Home Medications Medication Instructions Recorded Confirmed Last Taken Type ARIPiprazole 5 mg PO QDAY #30 tablet 02/27/19 03/01/19 Unknown Rx Pantoprazole [Protonix TAB] 40 mg PO QDAY #30 tablet 02/27/19 03/01/19 Unknown Rx amLODIPine 10 mg PO QDAY #30 tablet 02/27/19 03/01/19 Unknown Rx hydrALAZINE [Apresoline TAB] 50 mg PO TID #90 tab 02/27/19 03/01/19 Unknown Rx Active Medications: Generic Name Dose Route Start Last Admin Trade Name Efraínq PRN Reason Stop Dose Admin Acetaminophen 650 mg 03/01/19 22:17 Tylenol PO Q4H PRN Pain MILD(1-3)/Fever >100.5/QUAN Amlodipine Besylate 10 mg 03/02/19 10:00 03/08/19 09:39 Amlodipine PO 10 mg QDAY ENOC Administration Aripiprazole 5 mg 03/02/19 10:00 03/08/19 10:53 Aripiprazole PO 5 mg QDAY ENOC Administration Enoxaparin Sodium 30 mg 03/02/19 10:00 03/08/19 09:39 Enoxaparin SUB-Q 30 mg QDAY ENOC Administration Epoetin Polo 10,000 unit 03/02/19 08:31 03/04/19 12:51 Procrit IV 10,000 unit LOKESH PRN Administration hemodialysis Heparin Sodium (Porcine) 1,000 unit 03/02/19 08:31 Heparin 10,000 Units/10 Ml IV LOKESH PRN hemodialysis Heparin Sodium (Porcine) 5,000 unit 03/02/19 08:31 Heparin IV LOKESH PRN hemodialysis Sodium Chloride 100 mls @ 999 mls/hr 03/02/19 08:31 Nacl 0.9% IV LOKESH PRN Hypotension Ondansetron HCl 4 mg 03/01/19 22:17 Zofran IV Q8H PRN Nausea And Vomiting Pantoprazole Sodium 40 mg 03/02/19 10:00 03/08/19 09:40 Protonix PO 40 mg QDAY ENOC Administration Sodium Chloride 10 ml 03/02/19 10:00 03/08/19 09:40 Sodium Chloride Flush Syringe 10 Ml IV 10 ml BID ENOC Administration Sodium Chloride 10 ml 03/01/19 22:17 Sodium Chloride Flush Syringe 10 Ml IV PRN PRN LINE FLUSH
[2019-03-09] MEDS: amLODIPine 10 MG TAB PO SCH (09:14)
[2019-03-09] MEDS: ENOXAPARIN 30 MG/0.3 ML INJ SUB-Q SCH (09:14)
[2019-03-09] MEDS: ARIPiprazole 5 MG TAB PO SCH (09:15)
[2019-03-09] MEDS: PANTOPRAZOLE 40 MG TAB PO SCH (09:15)
[2019-03-09] MEDS: EPOETIN ALFA 10,000 UNIT/1 ML INJ IV PRN (13:30)
[2019-03-09] MEDS ORDERED: SODIUM CHLORIDE*PRIMING MACHINE ONLY FOR DIALYSIS MC ONE (13:42)
--- NOTE | 2019-03-09 16:53 | Progress Note ---
Assessment and Plan - Patient Problems (1) End-stage renal disease needing dialysis Current Visit: Yes Status: Acute Plan to address problem: Continue hemodialysis on a Wednesday, and Wednesday schedule. Unfortunately[place] [facility] [place]'s insurance. senior manager quality assurance is now arranging for placement at [facility]. (2) Anemia in end-stage renal disease Current Visit: Yes Status: Acute Plan to address problem: Give Erythropoetin on dialysis (3) Hypertension associated with stage 5 chronic kidney disease due to type 2 diabetes mellitus Current Visit: Yes Status: Acute Plan to address problem: Follow-up blood pressure on current medications (4) Schizoaffective disorder Current Visit: Yes Status: Acute Plan to address problem: Continue management by psychiatrist Subjective Date of service: 03/09/19 Principal diagnosis: ESRD, schizophrenia, malnutrition, was of the opinion Interval history: Patient seen lying in bed. He has no complaints. Objective - Exam Narrative Exam: Middle-aged -Kenyan male lying in bed in no acute distress HEENT: NCAT, pink oral mucous membrane Neck: Supple, no venous distention CVS: S1S2 RRR with no murmur, rub or gallop Chest: Clear to auscultation Abdomen: Protuberant, soft, nontender, no organomegaly, bowel sounds are present Extremities: No edema Neuro: Awake, alert - Vital Signs Vital signs: Vital Signs - 12hr 03/09/19 03/09/19 03/09/19 05:56 09:14 10:30 Temperature 98.8 F 98.2 F Pulse Rate 79 78 83 Respiratory 20 18 Rate Blood Pressure 140/100 110/73 146/98 O2 Sat by Pulse 100 Oximetry O2 Sat by Pulse 97 Oximetry [ Bilateral Throughout] 03/09/19 03/09/19 03/09/19 10:45 11:00 11:15 Temperature Pulse Rate 102 H 95 H 99 H Respiratory Rate Blood Pressure 135/111 141/102 137/97 O2 Sat by Pulse Oximetry O2 Sat by Pulse Oximetry [ Bilateral Throughout] 03/09/19 03/09/19 03/09/19 11:30 11:45 12:00 Temperature Pulse Rate 94 H 102 H 113 H Respiratory Rate Blood Pressure 143/99 134/96 145/93 O2 Sat by Pulse Oximetry O2 Sat by Pulse Oximetry [ Bilateral Throughout] 12/26/19 12/26/19 12/26/19 12:15 12:30 12:45 Temperature Pulse Rate 112 H 107 H 100 H Respiratory Rate Blood Pressure 143/104 127/98 125/92 O2 Sat by Pulse Oximetry O2 Sat by Pulse Oximetry [ Bilateral Throughout] 03/09/19 03/09/19 03/09/19 13:00 13:15 13:30 Temperature Pulse Rate 102 H 104 H 107 H Respiratory Rate Blood Pressure 139/93 125/79 106/78 O2 Sat by Pulse Oximetry O2 Sat by Pulse Oximetry [ Bilateral Throughout] 03/09/19 03/09/19 13:45 14:00 Temperature 98.2 F Pulse Rate 100 H 100 H Respiratory 18 Rate Blood Pressure 156/100 150/80 O2 Sat by Pulse Oximetry O2 Sat by Pulse Oximetry [ Bilateral Throughout] - Lab 03/08/19 07:49 03/08/19 07:49 Most recent lab results Calcium 9.0 mg/dL (8.4-10.2) 03/08/19 07:49 Phosphorus 5.00 mg/dL (2.5-4.5) H 03/08/19 07:49 Magnesium 2.00 mg/dL (1.7-2.3) 03/08/19 07:49 Medications & Allergies - Medications Allergies/Adverse Reactions: Allergies No Known Allergies Allergy (Unverified 04/17/17 13:03) Home Medications: Home Medications Medication Instructions Recorded Confirmed Last Taken Type ARIPiprazole 5 mg PO QDAY #30 tablet 02/27/19 03/01/19 Unknown Rx Pantoprazole [Protonix TAB] 40 mg PO QDAY #30 tablet 02/27/19 03/01/19 Unknown Rx amLODIPine 10 mg PO QDAY #30 tablet 02/27/19 03/01/19 Unknown Rx hydrALAZINE [Apresoline TAB] 50 mg PO TID #90 tab 02/27/19 03/01/19 Unknown Rx Active Medications: Generic Name Dose Route Start Last Admin Trade Name Freq PRN Reason Stop Dose Admin Acetaminophen 650 mg 03/01/19 22:17 Tylenol PO Q4H PRN Pain MILD(1-3)/Fever >100.5/QUAN Amlodipine Besylate 10 mg 03/02/19 10:00 03/09/19 09:14 Amlodipine PO 10 mg QDAY ENOC Administration Aripiprazole 5 mg 03/02/19 10:00 03/09/19 09:15 Aripiprazole PO 5 mg QDAY ENOC Administration Enoxaparin Sodium 30 mg 03/02/19 10:00 03/09/19 09:14 Enoxaparin SUB-Q 30 mg QDAY ENOC Administration Epoetin Polo 10,000 unit 03/02/19 08:31 03/09/19 13:30 Procrit IV 10,000 unit LOKESH PRN Administration hemodialysis Heparin Sodium (Porcine) 1,000 unit 03/02/19 08:31 Heparin 10,000 Units/10 Ml IV LOKESH PRN hemodialysis Heparin Sodium (Porcine) 5,000 unit 03/02/19 08:31 Heparin IV LOKESH PRN hemodialysis Sodium Chloride 100 mls @ 999 mls/hr 03/02/19 08:31 Nacl 0.9% IV LOKESH PRN Hypotension Ondansetron HCl 4 mg 03/01/19 22:17 Zofran IV Q8H PRN Nausea And Vomiting Pantoprazole Sodium 40 mg 03/02/19 10:00 03/09/19 09:15 Protonix PO 40 mg QDAY ENOC Administration Sodium Chloride 10 ml 03/02/19 10:00 03/09/19 09:15 Sodium Chloride Flush Syringe 10 Ml IV Not Given BID ENOC Sodium Chloride 10 ml 03/01/19 22:17 Sodium Chloride Flush Syringe 10 Ml IV PRN PRN LINE FLUSH
--- NOTE | 2019-03-09 17:56 | Progress Note ---
Assessment and Plan Assessment and plan: Patient is 58-year-old man history of hypertension, schizophrenia, bipolar, subarachnoid hemorrhage, status post frontal craniotomy with aneurysmal clip, end-stage renal disease on dialysis was sent from [facility] because he did not have dialysis since he was discharged on Wednesday. He was discharged on Wednesday after prolonged stay. Was reported that he was denied by [facility] dialysis.he has no complaints, very poor historian. Patient is able to speak but often choses not to He previously was ambulatory but admitted last time with left sided weakness Patient stay was prolonged due to placement issues He remained clinically stable, was treated for seizures and placed on keppra, baclofen discontinued Bp meds were adjusted due hypotension He was discharged after a dialysis place was established but returns because the dialysis centers director medical science declined to now accept him Hydralazine stopped MIKEL on CKD 4 - vasomotor nephropathy versus progression of underlying chronic medical disease -Nephrology consulted -Avoid nephrotoxic agents -Renally dose all meds -Nephrology initiated hemdialysis on 12/6 H/O schizophrenia and bipolar - Abilify 5 mg PO daily, psych following -Hx Hypertension -BP uncontrolled. Continue to adjust medications as needed Hx Right subarachnoid hemorrhage, status post right frontal craniotomy Hx aneurysm, status post clipping -Continue supportive care -Neurology recommended outpatient follow Tobacco abuse -Current every day smoker -Counseled for cessation -Nicotine patch when necessary Moderate Protein Calorie Malnutrition Continue to encourage PO intake Thrombocytopenia. - cont to Monitor Bipolar/schizophrenia Continue aripipazole Hypertension Continue norvasc, hydralazine dvt/gi prophy Discharge once dialysis center obtained History Interval history: Patient was seen and examined. Follow-up on current diagnosis of ESRD. Overnight uneventful as no events directly reported to me. Patient denies any chest pain, shortness breath, nausea/vomiting or severe headaches. Imaging, nursing note, chart, labs and old chart reviewed. Discussed with patient. Hospitalist Physical - Physical exam Narrative exam: Gen: thin frail NAD, Awake, Alert, Orientated HEENT: NCAT, EOMI, PERRL, OP Clear Neck: supple, no adenopathy, no thyromegaly, no JVD CVS/Heart: RRR, normal S1S2, pulses present bilaterally Chest/Lungs: CTA B, Symmetrical chest expansion, good air entry bilaterally GI/Abdomen: soft, NTND, good bowel sounds, no guarding or rebound /Bladder: no suprapubic tenderness, no CVA or paraspinal tenderness Extermity/Skin: no c/c/e, no obvious rash MSK: FROM x 4 Neuro: CN 2-12 grossly intact, no new focal deficits Psych: calm - Constitutional Vitals: Temp Pulse Resp BP Pulse Ox 98.2 F 100 H 18 150/80 97 03/09/19 14:00 03/09/19 14:00 03/09/19 14:00 03/09/19 14:00 03/09/19 10:30 Results - Labs CBC & Chem 7: 03/08/19 07:49 03/08/19 07:49 Labs: Laboratory Last Values WBC 6.7 K/mm3 (4.5-11.0) 03/08/19 07:49 RBC 2.95 M/mm3 (3.65-5.03) L 03/08/19 07:49 Hgb 8.3 gm/dl (11.8-15.2) L 03/08/19 07:49 Hct 26.2 % (35.5-45.6) L 03/08/19 07:49 MCV 89 fl (84-94) 03/08/19 07:49 MCH 28 pg (28-32) 03/08/19 07:49 MCHC 32 % (32-34) 03/08/19 07:49 RDW 13.3 % (13.2-15.2) 03/08/19 07:49 Plt Count 201 K/mm3 (140-440) 03/08/19 07:49 Lymph % (Auto) 19.0 % (13.4-35.0) 03/08/19 07:49 Wolfe % (Auto) 10.6 % (0.0-7.3) H 03/08/19 07:49 Eos % (Auto) 9.1 % (0.0-4.3) H 03/08/19 07:49 Baso % (Auto) 0.6 % (0.0-1.8) 03/08/19 07:49 Lymph # 1.3 K/mm3 (1.2-5.4) 03/08/19 07:49 Wolfe # 0.7 K/mm3 (0.0-0.8) 03/08/19 07:49 Eos # 0.6 K/mm3 (0.0-0.4) H 03/08/19 07:49 Baso # 0.0 K/mm3 (0.0-0.1) 03/08/19 07:49 Seg Neutrophils % 60.7 % (40.0-70.0) 03/08/19 07:49 Seg Neutrophils # 4.1 K/mm3 (1.8-7.7) 03/08/19 07:49 Sodium 139 mmol/L (137-145) 03/08/19 07:49 Potassium 3.8 mmol/L (3.6-5.0) 03/08/19 07:49 Chloride 95.5 mmol/L (98-107) L 03/08/19 07:49 Carbon Dioxide 26 mmol/L (22-30) 03/08/19 07:49 Anion Gap 21 mmol/L 03/08/19 07:49 BUN 33 mg/dL (9-20) H 03/08/19 07:49 Creatinine 6.1 mg/dL (0.8-1.5) H 03/08/19 07:49 Estimated GFR 11 ml/min 03/08/19 07:49 BUN/Creatinine Ratio 5 % 03/08/19 07:49 Glucose 82 mg/dL (75-100) 03/08/19 07:49 POC Glucose 85 (70-105) 03/04/19 09:09 Calcium 9.0 mg/dL (8.4-10.2) 03/08/19 07:49 Phosphorus 5.00 mg/dL (2.5-4.5) H 03/08/19 07:49 Magnesium 2.00 mg/dL (1.7-2.3) 03/08/19 07:49 Total Bilirubin 0.30 mg/dL (0.1-1.2) 03/08/19 07:49 AST 14 units/L (5-40) 03/08/19 07:49 ALT 10 units/L (7-56) 03/08/19 07:49 Alkaline Phosphatase 59 units/L (35-129) 03/08/19 07:49 Total Protein 7.1 g/dL (6.3-8.2) 03/08/19 07:49 Albumin 3.2 g/dL (3.9-5) L 03/08/19 07:49 Albumin/Globulin Ratio 0.8 % 03/08/19 07:49 Active Medications - Current Medications Current Medications: Generic Name Dose Route Start Last Admin Trade Name Freq PRN Reason Stop Dose Admin Acetaminophen 650 mg 03/01/19 22:17 Tylenol PO Q4H PRN Pain MILD(1-3)/Fever >100.5/QUAN Amlodipine Besylate 10 mg 03/02/19 10:00 03/09/19 09:14 Amlodipine PO 10 mg QDAY ENOC Administration Aripiprazole 5 mg 03/02/19 10:00 03/09/19 09:15 Aripiprazole PO 5 mg QDAY ENOC Administration Enoxaparin Sodium 30 mg 03/02/19 10:00 03/09/19 09:14 Enoxaparin SUB-Q 30 mg QDAY ENOC Administration Epoetin Polo 10,000 unit 03/02/19 08:31 03/09/19 13:30 Procrit IV 10,000 unit LOKESH PRN Administration hemodialysis Heparin Sodium (Porcine) 1,000 unit 03/02/19 08:31 Heparin 10,000 Units/10 Ml IV LOKESH PRN hemodialysis Heparin Sodium (Porcine) 5,000 unit 03/02/19 08:31 Heparin IV LOKESH PRN hemodialysis Sodium Chloride 100 mls @ 999 mls/hr 03/02/19 08:31 Nacl 0.9% IV LOKESH PRN Hypotension Ondansetron HCl 4 mg 03/01/19 22:17 Zofran IV Q8H PRN Nausea And Vomiting Pantoprazole Sodium 40 mg 03/02/19 10:00 03/09/19 09:15 Protonix PO 40 mg QDAY ENOC Administration Sodium Chloride 10 ml 03/02/19 10:00 03/09/19 09:15 Sodium Chloride Flush Syringe 10 Ml IV Not Given BID ENOC Sodium Chloride 10 ml 03/01/19 22:17 Sodium Chloride Flush Syringe 10 Ml IV PRN PRN LINE FLUSH Nutrition/Malnutrition Assess - Dietary Evaluation Nutrition/Malnutrition Findings: Nutrition Notes Start: 03/02/19 09:43 Freq: Status: Active Protocol: Document 03/05/19 12:47 LM (Rec: 03/05/19 12:53 LM [email or web address]) Nutrition Notes Initial or Follow up Reassessment Current Diagnosis CKD (stage V CKD),Hypertension Other Pertinent Diagnosis hematochezia Current Diet renal diet Labs/Tests No new labs Pertinent Medications reviewed Height 5 ft 6 in Weight 56.9 kg Usual Body Weight 63.6 kg [place] Body Weight (kg) 64.54 BMI 20.2 Weight Status Appropriate Subjective/Other Semiconductor Engineer feeding pt at time of visit. Pt eating 100%. Tech reports pt with good appetite. Nepro not consumed at time of visit but tech stated pt likes the Nepro. Percent of energy/protein needs met: 100%/100% Burn Absent Trauma Absent GI Symptoms None Food Allergy No Current % PO Good (75-100%) Minimum of two criteria Yes Interpretation of Weight Loss (severe) >2% in 1 week Muscle Mass Mild Depletion (non-severe) #1 Nutrition Diagnosis Malnutrition Diagnosis Progress(for reassessment Continues documentation) Is patient on ventilator? No Is Patient Ambulatory and/or Out of Bed No REE-([facility]-confined to bed) 1597.080 [facility]culation [facility] Additional Notes Protein needs: >67 g (>1.2g/ kg) Fluid needs: 1000 - 1500 mL Nutrition Intervention Change Diet Order: continue renal diet Add Supplement/Snack (indicate name/kcal Nepro BID /protein ) Provides kCal: 850 Provides Protein (gm) 38 Goal #1 continue to meet at least 80% of dietary needs Anticipated Discharge Needs: Renal diet, w/ Nepro Supplement BID Follow-Up By: 03/13/19 Additional Comments F/U for PO/ONS intakes
[2019-03-10] MEDS ORDERED: SODIUM CHLORIDE 0.9% 100 ML IV PRN ×2 (08:08→16:26)
[2019-03-10] MEDS: amLODIPine 10 MG TAB PO SCH (09:42)
[2019-03-10] MEDS: ARIPiprazole 5 MG TAB PO SCH (09:42)
[2019-03-10] MEDS: ENOXAPARIN 30 MG/0.3 ML INJ SUB-Q SCH (09:42)
[2019-03-10] MEDS: PANTOPRAZOLE 40 MG TAB PO SCH (09:42)
[2019-03-10] MEDS: EPOETIN ALFA 10,000 UNIT/1 ML INJ IV PRN (14:32)
--- NOTE | 2019-03-10 15:55 | Progress Note ---
Assessment and Plan Assessment and plan: Patient is 58-year-old man history of hypertension, schizophrenia, bipolar, subarachnoid hemorrhage, status post frontal craniotomy with aneurysmal clip, end-stage renal disease on dialysis was sent from [facility] because he did not have dialysis since he was discharged on Wednesday. He was discharged on Wednesday after prolonged stay. Was reported that he was denied by [facility] dialysis.he has no complaints, very poor historian. Patient is able to speak but often choses not to He previously was ambulatory but admitted last time with left sided weakness Patient stay was prolonged due to placement issues He remained clinically stable, was treated for seizures and placed on keppra, baclofen discontinued Bp meds were adjusted due hypotension He was discharged after a dialysis place was established but returns because the dialysis centers emergency medical technician basic declined to now accept him Hydralazine stopped MIKEL on CKD 4 - vasomotor nephropathy versus progression of underlying chronic medical disease -Nephrology consulted -Avoid nephrotoxic agents -Renally dose all meds -Nephrology initiated hemdialysis on 12/6 H/O schizophrenia and bipolar - Abilify 5 mg PO daily, psych following -Hx Hypertension -BP uncontrolled. Continue to adjust medications as needed Hx Right subarachnoid hemorrhage, status post right frontal craniotomy Hx aneurysm, status post clipping -Continue supportive care -Neurology recommended outpatient follow Tobacco abuse -Current every day smoker -Counseled for cessation -Nicotine patch when necessary Moderate Protein Calorie Malnutrition Continue to encourage PO intake Thrombocytopenia. - cont to Monitor dvt/gi prophy Discharge once dialysis center obtained History Interval history: Patient was seen and examined. Follow-up on current diagnosis of ESRD. Overnight uneventful as no events directly reported to me. Patient denies any chest pain, shortness breath, nausea/vomiting or severe headaches. Imaging, nursing note, chart, labs and old chart reviewed. Discussed with patient. Hospitalist Physical - Physical exam Narrative exam: Gen: thin frail NAD, Awake, Alert, Orientated x 2 HEENT: NCAT, EOMI, PERRL, OP Clear Neck: supple, no adenopathy, no thyromegaly, no JVD CVS/Heart: RRR, normal S1S2, pulses present bilaterally Chest/Lungs: CTA B, Symmetrical chest expansion, good air entry bilaterally GI/Abdomen: soft, NTND, good bowel sounds, no guarding or rebound /Bladder: no suprapubic tenderness, no CVA or paraspinal tenderness Extermity/Skin: no c/c/e, no obvious rash MSK: FROM x 4 Neuro: CN 2-12 grossly intact, no new focal deficits Psych: calm - Constitutional Vitals: Temp Pulse Resp BP Pulse Ox 98.3 F 73 20 119/87 99 03/10/19 14:15 03/10/19 14:15 03/10/19 14:15 03/10/19 14:15 03/10/19 04:03 Results - Labs CBC & Chem 7: 03/08/19 07:49 03/08/19 07:49 Labs: Laboratory Last Values WBC 6.7 K/mm3 (4.5-11.0) 03/08/19 07:49 RBC 2.95 M/mm3 (3.65-5.03) L 03/08/19 07:49 Hgb 8.3 gm/dl (11.8-15.2) L 03/08/19 07:49 Hct 26.2 % (35.5-45.6) L 03/08/19 07:49 MCV 89 fl (84-94) 03/08/19 07:49 MCH 28 pg (28-32) 03/08/19 07:49 MCHC 32 % (32-34) 03/08/19 07:49 RDW 13.3 % (13.2-15.2) 03/08/19 07:49 Plt Count 201 K/mm3 (140-440) 03/08/19 07:49 Lymph % (Auto) 19.0 % (13.4-35.0) 03/08/19 07:49 [place] % (Auto) 10.6 % (0.0-7.3) H 03/08/19 07:49 Eos % (Auto) 9.1 % (0.0-4.3) H 03/08/19 07:49 Baso % (Auto) 0.6 % (0.0-1.8) 03/08/19 07:49 Lymph # 1.3 K/mm3 (1.2-5.4) 03/08/19 07:49 Mobile # 0.7 K/mm3 (0.0-0.8) 03/08/19 07:49 Eos # 0.6 K/mm3 (0.0-0.4) H 03/08/19 07:49 Baso # 0.0 K/mm3 (0.0-0.1) 03/08/19 07:49 Seg Neutrophils % 60.7 % (40.0-70.0) 03/08/19 07:49 Seg Neutrophils # 4.1 K/mm3 (1.8-7.7) 03/08/19 07:49 Sodium 139 mmol/L (137-145) 03/08/19 07:49 Potassium 3.8 mmol/L (3.6-5.0) 03/08/19 07:49 Chloride 95.5 mmol/L (98-107) L 03/08/19 07:49 Carbon Dioxide 26 mmol/L (22-30) 03/08/19 07:49 Anion Gap 21 mmol/L 03/08/19 07:49 BUN 33 mg/dL (9-20) H 03/08/19 07:49 Creatinine 6.1 mg/dL (0.8-1.5) H 03/08/19 07:49 Estimated GFR 11 ml/min 03/08/19 07:49 BUN/Creatinine Ratio 5 % 03/08/19 07:49 Glucose 82 mg/dL (75-100) 03/08/19 07:49 POC Glucose 85 (70-105) 03/04/19 09:09 Calcium 9.0 mg/dL (8.4-10.2) 03/08/19 07:49 Phosphorus 5.00 mg/dL (2.5-4.5) H 03/08/19 07:49 Magnesium 2.00 mg/dL (1.7-2.3) 03/08/19 07:49 Total Bilirubin 0.30 mg/dL (0.1-1.2) 03/08/19 07:49 AST 14 units/L (5-40) 03/08/19 07:49 ALT 10 units/L (7-56) 03/08/19 07:49 Alkaline Phosphatase 59 units/L (35-129) 03/08/19 07:49 Total Protein 7.1 g/dL (6.3-8.2) 03/08/19 07:49 Albumin 3.2 g/dL (3.9-5) L 03/08/19 07:49 Albumin/Globulin Ratio 0.8 % 03/08/19 07:49 Active Medications - Current Medications Current Medications: Generic Name Dose Route Start Last Admin Trade Name Freq PRN Reason Stop Dose Admin Acetaminophen 650 mg 03/01/19 22:17 Tylenol PO Q4H PRN Pain MILD(1-3)/Fever >100.5/QUAN Amlodipine Besylate 10 mg 03/02/19 10:00 03/10/19 09:42 Amlodipine PO 10 mg QDAY ENOC Administration Aripiprazole 5 mg 03/02/19 10:00 03/10/19 09:42 Aripiprazole PO 5 mg QDAY ENOC Administration Enoxaparin Sodium 30 mg 03/02/19 10:00 03/10/19 09:42 Enoxaparin SUB-Q 30 mg QDAY ENOC Administration Epoetin Polo 10,000 unit 03/02/19 08:31 03/10/19 14:32 Procrit IV 10,000 unit LOKESH PRN Administration hemodialysis Heparin Sodium (Porcine) 1,000 unit 03/02/19 08:31 Heparin 10,000 Units/10 Ml IV LOKESH PRN hemodialysis Heparin Sodium (Porcine) 5,000 unit 03/02/19 08:31 Heparin IV LOKESH PRN hemodialysis Sodium Chloride 100 mls @ 999 mls/hr 03/10/19 08:08 Nacl 0.9% IV LOKESH PRN Hypotension Ondansetron HCl 4 mg 03/01/19 22:17 Zofran IV Q8H PRN Nausea And Vomiting Pantoprazole Sodium 40 mg 03/02/19 10:00 03/10/19 09:42 Protonix PO 40 mg QDAY ENOC Administration Sodium Chloride 10 ml 03/02/19 10:00 03/10/19 09:42 Sodium Chloride Flush Syringe 10 Ml IV 10 ml BID ENOC Administration Sodium Chloride 10 ml 03/01/19 22:17 Sodium Chloride Flush Syringe 10 Ml IV PRN PRN LINE FLUSH Nutrition/Malnutrition Assess - Dietary Evaluation Nutrition/Malnutrition Findings: Nutrition Notes Start: 03/02/19 09:43 Freq: Status: Active Protocol: Document 03/05/19 12:47 LM (Rec: 03/05/19 12:53 LM [email or web address]) Nutrition Notes Initial or Follow up Reassessment Current Diagnosis CKD (stage V CKD),Hypertension Other Pertinent Diagnosis hematochezia Current Diet renal diet Labs/Tests No new labs Pertinent Medications reviewed Height 5 ft 6 in Weight 56.9 kg Usual Body Weight 63.6 kg [place] Body Weight (kg) 64.54 BMI 20.2 Weight Status Appropriate Subjective/Other Electric Dolly Operator feeding pt at time of visit. Pt eating 100%. Tech reports pt with good appetite. Nepro not consumed at time of visit but tech stated pt likes the Nepro. Percent of energy/protein needs met: 100%/100% Burn Absent Trauma Absent GI Symptoms None Food Allergy No Current % PO Good (75-100%) Minimum of two criteria Yes Interpretation of Weight Loss (severe) >2% in 1 week Muscle Mass Mild Depletion (non-severe) #1 Nutrition Diagnosis Malnutrition Diagnosis Progress(for reassessment Continues documentation) Is patient on ventilator? No Is Patient Ambulatory and/or Out of Bed No REE-([facility]-confined to bed) 2327.080 [facility]culation [facility] Additional Notes Protein needs: >67 g (>1.2g/ kg) Fluid needs: 1000 - 1500 mL Nutrition Intervention Change Diet Order: continue renal diet Add Supplement/Snack (indicate name/kcal Nepro BID /protein ) Provides kCal: 850 Provides Protein (gm) 38 Goal #1 continue to meet at least 80% of dietary needs Anticipated Discharge Needs: Renal diet, w/ Nepro Supplement BID Follow-Up By: 03/13/19 Additional Comments F/U for PO/ONS intakes
[2019-03-10] MEDS ORDERED: SODIUM CHLORIDE*PRIMING MACHINE ONLY FOR DIALYSIS MC ONE (18:57)
--- NOTE | 2019-03-10 19:32 | Progress Note ---
Assessment and Plan - Patient Problems (1) End-stage renal disease needing dialysis Current Visit: Yes Status: Acute Plan to address problem: Continue hemodialysis on a Wednesday, and Wednesday schedule. Unfortunately, [facility] is out of network with patient's insurance. customer advocacy manager is now arranging for placement at [facility]. (2) Anemia in end-stage renal disease Current Visit: Yes Status: Acute Plan to address problem: Give Erythropoetin on dialysis (3) Hypertension associated with stage 5 chronic kidney disease due to type 2 diabetes mellitus Current Visit: Yes Status: Acute Plan to address problem: Follow-up blood pressure on current medications (4) Schizoaffective disorder Current Visit: Yes Status: Acute Plan to address problem: Continue management by psychiatrist Subjective Date of service: 03/10/19 Principal diagnosis: ESRD, schizophrenia, malnutrition, was of the opinion Interval history: Patient seen lying in bed. He has no complaints. Objective - Exam Narrative Exam: Middle-aged -Eritre[place] male lying in bed in no acute distress HEENT: NCAT, pink oral mucous membrane Neck: Supple, no venous distention CVS: S1S2 RRR with no murmur, rub or gallop Chest: Clear to auscultation Abdomen: Protuberant, soft, nontender, no organomegaly, bowel sounds are present Extremities: No edema Neuro: Awake, alert - Vital Signs Vital signs: Vital Signs - 12hr 03/10/19 03/10/19 03/10/19 11:35 11:43 11:45 Temperature 98.3 F Pulse Rate 102 H 96 H 89 Respiratory 20 Rate Blood Pressure 139/90 122/79 131/94 O2 Sat by Pulse Oximetry 03/10/19 03/10/19 03/10/19 12:00 12:15 12:30 Temperature Pulse Rate 84 84 89 Respiratory Rate Blood Pressure 122/95 122/95 162/95 O2 Sat by Pulse Oximetry 03/10/19 03/10/19 03/10/19 12:45 13:00 13:15 Temperature Pulse Rate 93 H 100 H 78 Respiratory Rate Blood Pressure 121/88 124/97 101/80 O2 Sat by Pulse Oximetry 03/10/19 03/10/19 03/10/19 13:30 13:45 14:00 Temperature Pulse Rate 105 H 102 H 40 L Respiratory Rate Blood Pressure 106/85 141/90 170/116 O2 Sat by Pulse Oximetry 03/10/19 03/10/19 03/10/19 14:03 14:04 14:05 Temperature Pulse Rate 67 81 77 Respiratory Rate Blood Pressure 55/38 71/52 97/66 O2 Sat by Pulse Oximetry 03/10/19 03/10/19 03/10/19 14:06 14:15 17:32 Temperature 98.3 F 99.1 F Pulse Rate 78 94 H 100 H Respiratory 20 18 Rate Blood Pressure 112/77 122/67 108/72 O2 Sat by Pulse 98 Oximetry - Lab 03/08/19 07:49 03/08/19 07:49 Most recent lab results Calcium 9.0 mg/dL (8.4-10.2) 03/08/19 07:49 Phosphorus 5.00 mg/dL (2.5-4.5) H 03/08/19 07:49 Magnesium 2.00 mg/dL (1.7-2.3) 03/08/19 07:49 Medications & Allergies - Medications Allergies/Adverse Reactions: Allergies No Known Allergies Allergy (Unverified 04/17/17 13:03) Home Medications: Home Medications Medication Instructions Recorded Confirmed Last Taken Type RX: ARIPiprazole 5 mg PO QDAY #30 tablet 02/27/19 03/01/19 Unknown Rx RX: Pantoprazole [Protonix TAB] 40 mg PO QDAY #30 tablet 02/27/19 03/01/19 U nknown Rx RX: amLODIPine 10 mg PO QDAY #30 tablet 02/27/19 03/01/19 Unknown Rx RX: hydrALAZINE [Apresoline TAB] 50 mg PO TID #90 tab 02/27/19 03/01/19 Unknown Rx Active Medications: Generic Name Dose Route Start Last Admin Trade Name Freq PRN Reason Stop Dose Admin Acetaminophen 650 mg 03/01/19 22:17 Tylenol PO Q4H PRN Pain MILD(1-3)/Fever >100.5/QUAN Amlodipine Besylate 10 mg 03/02/19 10:00 03/10/19 09:42 Amlodipine PO 10 mg QDAY ENOC Administration Aripiprazole 5 mg 03/02/19 10:00 03/10/19 09:42 Aripiprazole PO 5 mg QDAY ENOC Administration Enoxaparin Sodium 30 mg 03/02/19 10:00 03/10/19 09:42 Enoxaparin SUB-Q 30 mg QDAY ENOC Administration Epoetin Polo 10,000 unit 03/02/19 08:31 03/10/19 14:32 Procrit IV 10,000 unit LOKESH PRN Administration hemodialysis Heparin Sodium (Porcine) 1,000 unit 03/02/19 08:31 Heparin 10,000 Units/10 Ml IV LOKESH PRN hemodialysis Heparin Sodium (Porcine) 5,000 unit 03/02/19 08:31 Heparin IV LOKESH PRN hemodialysis Sodium Chloride 100 mls @ 999 mls/hr 03/10/19 08:08 Nacl 0.9% IV LOKESH PRN Hypotension Ondansetron HCl 4 mg 03/01/19 22:17 Zofran IV Q8H PRN Nausea And Vomiting Pantoprazole Sodium 40 mg 03/02/19 10:00 03/10/19 09:42 Protonix PO 40 mg QDAY ENOC Administration Sodium Chloride 10 ml 03/02/19 10:00 03/10/19 09:42 Sodium Chloride Flush Syringe 10 Ml IV 10 ml BID ENOC Administration Sodium Chloride 10 ml 03/01/19 22:17 Sodium Chloride Flush Syringe 10 Ml IV PRN PRN LINE FLUSH
[2019-03-11 05:08] LABS: Hemoglobin 10.2 gm/dl (11.8-15.2); Mean Corpuscular HGB Conc 32 % (32-34); Mean Corpuscular Volume 88 fl (84-94); Platelet Count 185 K/mm3 (140-440); Red Blood Count 3.63 M/mm3 (3.65-5.03); Red Cell Distribution Width 13.3 % (13.2-15.2)
[2019-03-11 05:33] LABS: Calcium 9.4 mg/dL (8.4-10.2)
[2019-03-11] MEDS: PANTOPRAZOLE 40 MG TAB PO SCH (10:59)
[2019-03-11] MEDS: ARIPiprazole 5 MG TAB PO SCH (10:59)
[2019-03-11] MEDS: ENOXAPARIN 30 MG/0.3 ML INJ SUB-Q SCH (11:07)
[2019-03-11] MEDS: amLODIPine 10 MG TAB PO SCH (11:11)
--- NOTE | 2019-03-11 15:11 | Progress Note ---
Assessment and Plan - Patient Problems (1) End-stage renal disease needing dialysis Current Visit: Yes Status: Acute Plan to address problem: Continue hemodialysis on a Wednesday, and Wednesday schedule. Unfortunately, [facility] is out of network with patient's insurance. adoption manager is now arranging for placement at [facility]. (2) Anemia in end-stage renal disease Current Visit: Yes Status: Acute Plan to address problem: Give Erythropoetin on dialysis (3) Hypertension associated with stage 5 chronic kidney disease due to type 2 diabetes mellitus Current Visit: Yes Status: Acute Plan to address problem: Follow-up blood pressure on current medications (4) Schizoaffective disorder Current Visit: Yes Status: Acute Plan to address problem: Continue management by psychiatrist Subjective Date of service: 03/11/19 Principal diagnosis: ESRD, schizophrenia, malnutrition, was of the opinion Interval history: Patient seen lying in bed. He has no complaints. Objective - Exam Narrative Exam: Middle-aged -Swazi male lying in bed in no acute distress HEENT: NCAT, pink oral mucous membrane Neck: Supple, no venous distention CVS: S1S2 RRR with no murmur, rub or gallop Chest: Clear to auscultation Abdomen: Protuberant, soft, nontender, no organomegaly, bowel sounds are present Extremities: No edema Neuro: Awake, alert - Vital Signs Vital signs: Vital Signs - 12hr 03/11/19 03/11/19 03/11/19 05:37 11:10 11:11 Temperature 97.7 F 97.8 F Pulse Rate 100 H 98 H 95 H Respiratory 18 19 Rate Blood Pressure 120/80 129/80 129/80 O2 Sat by Pulse 100 98 Oximetry - Lab 03/11/19 04:34 03/11/19 04:34 Most recent lab results Calcium 9.4 mg/dL (8.4-10.2) 03/11/19 04:34 Phosphorus 5.00 mg/dL (2.5-4.5) H 03/08/19 07:49 Magnesium 2.00 mg/dL (1.7-2.3) 03/08/19 07:49 Medications & Allergies - Medications Allergies/Adverse Reactions: Allergies No Known Allergies Allergy (Unverified 04/17/17 13:03) Home Medications: Home Medications Medication Instructions Recorded Confirmed Last Taken Type ARIPiprazole 5 mg PO QDAY #30 tablet 02/27/19 03/01/19 Unknown Rx Pantoprazole [Protonix TAB] 40 mg PO QDAY #30 tablet 02/27/19 03/01/19 Unknown Rx amLODIPine 10 mg PO QDAY #30 tablet 02/27/19 03/01/19 Unknown Rx hydrALAZINE [Apresoline TAB] 50 mg PO TID #90 tab 02/27/19 03/01/19 Unknown Rx Active Medications: Generic Name Dose Route Start Last Admin Trade Name Freq PRN Reason Stop Dose Admin Acetaminophen 650 mg 03/01/19 22:17 Tylenol PO Q4H PRN Pain MILD(1-3)/Fever >100.5/QUAN Amlodipine Besylate 10 mg 03/02/19 10:00 03/11/19 11:11 Amlodipine PO 10 mg QDAY ENOC Administration Aripiprazole 5 mg 03/02/19 10:00 03/11/19 10:59 Aripiprazole PO 5 mg QDAY ENOC Administration Enoxaparin Sodium 30 mg 03/02/19 10:00 03/11/19 11:07 Enoxaparin SUB-Q 30 mg QDAY ENOC Administration Epoetin Polo 10,000 unit 03/02/19 08:31 03/10/19 14:32 Procrit IV 10,000 unit LOKESH PRN Administration hemodialysis Heparin Sodium (Porcine) 1,000 unit 03/02/19 08:31 Heparin 10,000 Units/10 Ml IV LOKESH PRN hemodialysis Heparin Sodium (Porcine) 5,000 unit 03/02/19 08:31 Heparin IV LOKESH PRN hemodialysis Sodium Chloride 100 mls @ 999 mls/hr 03/10/19 08:08 Nacl 0.9% IV LOKESH PRN Hypotension Ondansetron HCl 4 mg 03/01/19 22:17 Zofran IV Q8H PRN Nausea And Vomiting Pantoprazole Sodium 40 mg 03/02/19 10:00 03/11/19 10:59 Protonix PO 40 mg QDAY ENOC Administration Sodium Chloride 10 ml 03/02/19 10:00 03/11/19 11:07 Sodium Chloride Flush Syringe 10 Ml IV 10 ml BID ENOC Administration Sodium Chloride 10 ml 03/01/19 22:17 Sodium Chloride Flush Syringe 10 Ml IV PRN PRN LINE FLUSH
--- NOTE | 2019-03-11 16:01 | Progress Note ---
Assessment and Plan Assessment and plan: Patient is 58-year-old man history of hypertension, schizophrenia, bipolar, subarachnoid hemorrhage, status post frontal craniotomy with aneurysmal clip, end-stage renal disease on dialysis was sent from [facility] because he did not have dialysis since he was discharged on Wednesday. He was discharged on Wednesday after prolonged stay. Was reported that he was denied by [facility] dialysis.he has no complaints, very poor historian. Patient is able to speak but often choses not to He previously was ambulatory but admitted last time with left sided weakness Patient stay was prolonged due to placement issues He remained clinically stable, was treated for seizures and placed on keppra, baclofen discontinued Bp meds were adjusted due hypotension He was discharged after a dialysis place was established but returns because the dialysis centers medical reviewer declined to now accept him Hydralazine stopped MIKEL on CKD 4 - vasomotor nephropathy versus progression of underlying chronic medical disease -Nephrology consulted -Avoid nephrotoxic agents -Renally dose all meds -Nephrology initiated hemdialysis on 12/6 H/O schizophrenia and bipolar - Abilify 5 mg PO daily, psych following -Hx Hypertension -BP uncontrolled. Continue to adjust medications as needed Hx Right subarachnoid hemorrhage, status post right frontal craniotomy Hx aneurysm, status post clipping -Continue supportive care -Neurology recommended outpatient follow Tobacco abuse -Current every day smoker -Counseled for cessation -Nicotine patch when necessary Moderate Protein Calorie Malnutrition Continue to encourage PO intake Thrombocytopenia. - cont to Monitor dvt/gi prophy Discharge once dialysis center obtained admitting manager is now arranging for placement at [facility]. History Interval history: Patient was seen and examined. Follow-up on current diagnosis of ESRD. Overnight uneventful as no events directly reported to me. Patient denies any chest pain, shortness breath, nausea/vomiting or severe headaches. Imaging, nursing note, chart, labs and old chart reviewed. Discussed with patient. Hospitalist Physical - Physical exam Narrative exam: Gen: thin frail NAD, Awake, Alert, Orientated x 2 HEENT: NCAT, EOMI, PERRL, OP Clear Neck: supple, no adenopathy, no thyromegaly, no JVD CVS/Heart: RRR, normal S1S2, pulses present bilaterally Chest/Lungs: CTA B, Symmetrical chest expansion, good air entry bilaterally GI/Abdomen: soft, NTND, good bowel sounds, no guarding or rebound /Bladder: no suprapubic tenderness, no CVA or paraspinal tenderness Extermity/Skin: no c/c/e, no obvious rash MSK: FROM x 4 Neuro: CN 2-12 grossly intact, no new focal deficits Psych: calm - Constitutional Vitals: Temp Pulse Resp BP Pulse Ox 97.8 F 95 H 19 129/80 98 03/11/19 11:10 03/11/19 11:11 03/11/19 11:10 03/11/19 11:11 03/11/19 11:10 Results - Labs CBC & Chem 7: 03/11/19 04:34 03/11/19 04:34 Labs: Laboratory Last Values WBC 7.2 K/mm3 (4.5-11.0) 03/11/19 04:34 RBC 3.63 M/mm3 (3.65-5.03) L 03/11/19 04:34 Hgb 10.2 gm/dl (11.8-15.2) L 03/11/19 04:34 Hct 32.0 % (35.5-45.6) L 03/11/19 04:34 MCV 88 fl (84-94) 03/11/19 04:34 MCH 28 pg (28-32) 03/11/19 04:34 MCHC 32 % (32-34) 03/11/19 04:34 RDW 13.3 % (13.2-15.2) 03/11/19 04:34 Plt Count 185 K/mm3 (140-440) 03/11/19 04:34 Lymph % (Auto) 19.0 % (13.4-35.0) 03/08/19 07:49 [place] % (Auto) 10.6 % (0.0-7.3) H 03/08/19 07:49 Eos % (Auto) 9.1 % (0.0-4.3) H 03/08/19 07:49 Baso % (Auto) 0.6 % (0.0-1.8) 03/08/19 07:49 Lymph # 1.3 K/mm3 (1.2-5.4) 03/08/19 07:49 [place] # 0.7 K/mm3 (0.0-0.8) 03/08/19 07:49 Eos # 0.6 K/mm3 (0.0-0.4) H 03/08/19 07:49 Baso # 0.0 K/mm3 (0.0-0.1) 03/08/19 07:49 Seg Neutrophils % 60.7 % (40.0-70.0) 03/08/19 07:49 Seg Neutrophils # 4.1 K/mm3 (1.8-7.7) 03/08/19 07:49 Sodium 138 mmol/L (137-145) 03/11/19 04:34 Potassium 4.1 mmol/L (3.6-5.0) 03/11/19 04:34 Chloride 98.4 mmol/L (98-107) 03/11/19 04:34 Carbon Dioxide 23 mmol/L (22-30) 03/11/19 04:34 Anion Gap 21 mmol/L 03/11/19 04:34 BUN 33 mg/dL (9-20) H 03/11/19 04:34 Creatinine 6.7 mg/dL (0.8-1.5) H 03/11/19 04:34 Estimated GFR 10 ml/min 03/11/19 04:34 BUN/Creatinine Ratio 5 % 03/11/19 04:34 Glucose 100 mg/dL (75-100) 03/11/19 04:34 POC Glucose 85 (70-105) 03/04/19 09:09 Calcium 9.4 mg/dL (8.4-10.2) 03/11/19 04:34 Phosphorus 5.00 mg/dL (2.5-4.5) H 03/08/19 07:49 Magnesium 2.00 mg/dL (1.7-2.3) 03/08/19 07:49 Total Bilirubin 0.30 mg/dL (0.1-1.2) 03/08/19 07:49 AST 14 units/L (5-40) 03/08/19 07:49 ALT 10 units/L (7-56) 03/08/19 07:49 Alkaline Phosphatase 59 units/L (35-129) 03/08/19 07:49 Total Protein 7.1 g/dL (6.3-8.2) 03/08/19 07:49 Albumin 3.2 g/dL (3.9-5) L 03/08/19 07:49 Albumin/Globulin Ratio 0.8 % 03/08/19 07:49 Active Medications - Current Medications Current Medications: Generic Name Dose Route Start Last Admin Trade Name Freq PRN Reason Stop Dose Admin Acetaminophen 650 mg 03/01/19 22:17 Tylenol PO Q4H PRN Pain MILD(1-3)/Fever >100.5/QUAN Amlodipine Besylate 10 mg 03/02/19 10:00 03/11/19 11:11 Amlodipine PO 10 mg QDAY ENOC Administration Aripiprazole 5 mg 03/02/19 10:00 03/11/19 10:59 Aripiprazole PO 5 mg QDAY ENOC Administration Enoxaparin Sodium 30 mg 03/02/19 10:00 03/11/19 11:07 Enoxaparin SUB-Q 30 mg QDAY EONC Administration Epoetin Polo 10,000 unit 03/02/19 08:31 03/10/19 14:32 Procrit IV 10,000 unit LOKESH PRN Administration hemodialysis Heparin Sodium (Porcine) 1,000 unit 03/02/19 08:31 Heparin 10,000 Units/10 Ml IV LOKESH PRN hemodialysis Heparin Sodium (Porcine) 5,000 unit 03/02/19 08:31 Heparin IV LOKESH PRN hemodialysis Sodium Chloride 100 mls @ 999 mls/hr 03/10/19 08:08 Nacl 0.9% IV LOKESH PRN Hypotension Ondansetron HCl 4 mg 03/01/19 22:17 Zofran IV Q8H PRN Nausea And Vomiting Pantoprazole Sodium 40 mg 03/02/19 10:00 03/11/19 10:59 Protonix PO 40 mg QDAY ENOC Administration Sodium Chloride 10 ml 03/02/19 10:00 03/11/19 11:07 Sodium Chloride Flush Syringe 10 Ml IV 10 ml BID ENOC Administration Sodium Chloride 10 ml 03/01/19 22:17 Sodium Chloride Flush Syringe 10 Ml IV PRN PRN LINE FLUSH Nutrition/Malnutrition Assess - Dietary Evaluation Nutrition/Malnutrition Findings: Nutrition Notes Start: 03/02/19 09:43 Freq: Status: Active Protocol: Document 03/05/19 12:47 LM (Rec: 03/05/19 12:53 LM [email or web address]) Nutrition Notes Initial or Follow up Reassessment Current Diagnosis CKD (stage V CKD),Hypertension Other Pertinent Diagnosis hematochezia Current Diet renal diet Labs/Tests No new labs Pertinent Medications reviewed Height 5 ft 6 in Weight 56.9 kg Usual Body Weight 63.6 kg [place] Body Weight (kg) 64.54 BMI 20.2 Weight Status Appropriate Subjective/Other [employer] feeding pt at time of visit. Pt eating 100%. Tech reports pt with good appetite. Nepro not consumed at time of visit but tech stated pt likes the Nepro. Percent of energy/protein needs met: 100%/100% Burn Absent Trauma Absent GI Symptoms None Food Allergy No Current % PO Good (75-100%) Minimum of two criteria Yes Interpretation of Weight Loss (severe) >2% in 1 week Muscle Mass Mild Depletion (non-severe) #1 Nutrition Diagnosis Malnutrition Diagnosis Progress(for reassessment Continues documentation) Is patient on ventilator? No Is Patient Ambulatory and/or Out of Bed No REE-([place]-St. Jeor-confined to bed) 1597.080 [facility] Additional Notes Protein needs: >67 g (>1.2g/ kg) Fluid needs: 1000 - 1500 mL Nutrition Intervention Change Diet Order: continue renal diet Add Supplement/Snack (indicate name/kcal Nepro BID /protein ) Provides kCal: 850 Provides Protein (gm) 38 Goal #1 continue to meet at least 80% of dietary needs Anticipated Discharge Needs: Renal diet, w/ Nepro Supplement BID Follow-Up By: 03/13/19 Additional Comments F/U for PO/ONS intakes
--- NOTE | 2019-03-12 11:16 | Progress Note ---
Assessment and Plan Assessment and plan: Patient is 58-year-old man history of hypertension, schizophrenia, bipolar, subarachnoid hemorrhage, status post frontal craniotomy with aneurysmal clip, end-stage renal disease on dialysis was sent from [facility] because he did not have dialysis since he was discharged on Wednesday. He was discharged on Wednesday after prolonged stay. Was reported that he was denied by [facility] dialysis.he has no complaints, very poor historian. Patient is able to speak but often choses not to He previously was ambulatory but admitted last time with left sided weakness Patient stay was prolonged due to placement issues He remained clinically stable, was treated for seizures and placed on keppra, baclofen discontinued Bp meds were adjusted due hypotension He was discharged after a dialysis place was established but returns because the dialysis centers medical record specialist declined to now accept him Hydralazine stopped MIKEL on CKD 4 - vasomotor nephropathy versus progression of underlying chronic medical disease -Nephrology consulted -Avoid nephrotoxic agents -Renally dose all meds -Nephrology initiated hemdialysis on 12/6 H/O schizophrenia and bipolar - Abilify 5 mg PO daily, psych following -Hx Hypertension -BP uncontrolled. Continue to adjust medications as needed Hx Right subarachnoid hemorrhage, status post right frontal craniotomy Hx aneurysm, status post clipping -Continue supportive care -Neurology recommended outpatient follow Tobacco abuse -Current every day smoker -Counseled for cessation -Nicotine patch when necessary Moderate Protein Calorie Malnutrition Continue to encourage PO intake Thrombocytopenia. - cont to Monitor dvt/gi prophy Discharge once dialysis center obtained manager subway is now arranging for placement at [facility]. History Interval history: Patient was seen and examined. Follow-up on current diagnosis of ESRD. Overnight uneventful as no events directly reported to me. Patient denies any chest pain, shortness breath, nausea/vomiting or severe headaches. Imaging, nursing note, chart, labs and old chart reviewed. Discussed with patient. Hospitalist Physical - Physical exam Narrative exam: Gen: thin frail NAD, Awake, Alert, Orientated x 2 HEENT: NCAT, EOMI, PERRL, OP Clear Neck: supple, no adenopathy, no thyromegaly, no JVD CVS/Heart: RRR, normal S1S2, pulses present bilaterally Chest/Lungs: CTA B, Symmetrical chest expansion, good air entry bilaterally GI/Abdomen: soft, NTND, good bowel sounds, no guarding or rebound /Bladder: no suprapubic tenderness, no CVA or paraspinal tenderness Extermity/Skin: no c/c/e, no obvious rash MSK: FROM x 4 Neuro: CN 2-12 grossly intact, no new focal deficits Psych: calm - Constitutional Vitals: Temp Pulse Resp BP Pulse Ox 98.8 F 116 H 20 141/100 97 03/12/19 05:35 03/12/19 05:35 03/12/19 05:35 03/12/19 05:35 03/12/19 05:35 Results - Labs CBC & Chem 7: 03/11/19 04:34 03/11/19 04:34 Labs: Laboratory Last Values WBC 7.2 K/mm3 (4.5-11.0) 03/11/19 04:34 RBC 3.63 M/mm3 (3.65-5.03) L 03/11/19 04:34 Hgb 10.2 gm/dl (11.8-15.2) L 03/11/19 04:34 Hct 32.0 % (35.5-45.6) L 03/11/19 04:34 MCV 88 fl (84-94) 03/11/19 04:34 MCH 28 pg (28-32) 03/11/19 04:34 MCHC 32 % (32-34) 03/11/19 04:34 RDW 13.3 % (13.2-15.2) 03/11/19 04:34 Plt Count 185 K/mm3 (140-440) 03/11/19 04:34 Lymph % (Auto) 19.0 % (13.4-35.0) 03/08/19 07:49 [place] % (Auto) 10.6 % (0.0-7.3) H 03/08/19 07:49 Eos % (Auto) 9.1 % (0.0-4.3) H 03/08/19 07:49 Baso % (Auto) 0.6 % (0.0-1.8) 03/08/19 07:49 Lymph # 1.3 K/mm3 (1.2-5.4) 03/08/19 07:49 [place] # 0.7 K/mm3 (0.0-0.8) 03/08/19 07:49 Eos # 0.6 K/mm3 (0.0-0.4) H 03/08/19 07:49 Baso # 0.0 K/mm3 (0.0-0.1) 03/08/19 07:49 Seg Neutrophils % 60.7 % (40.0-70.0) 03/08/19 07:49 Seg Neutrophils # 4.1 K/mm3 (1.8-7.7) 03/08/19 07:49 Sodium 138 mmol/L (137-145) 03/11/19 04:34 Potassium 4.1 mmol/L (3.6-5.0) 03/11/19 04:34 Chloride 98.4 mmol/L (98-107) 03/11/19 04:34 Carbon Dioxide 23 mmol/L (22-30) 03/11/19 04:34 Anion Gap 21 mmol/L 03/11/19 04:34 BUN 33 mg/dL (9-20) H 03/11/19 04:34 Creatinine 6.7 mg/dL (0.8-1.5) H 03/11/19 04:34 Estimated GFR 10 ml/min 03/11/19 04:34 BUN/Creatinine Ratio 5 % 03/11/19 04:34 Glucose 100 mg/dL (75-100) 03/11/19 04:34 POC Glucose 85 (70-105) 03/04/19 09:09 Calcium 9.4 mg/dL (8.4-10.2) 03/11/19 04:34 Phosphorus 5.00 mg/dL (2.5-4.5) H 03/08/19 07:49 Magnesium 2.00 mg/dL (1.7-2.3) 03/08/19 07:49 Total Bilirubin 0.30 mg/dL (0.1-1.2) 03/08/19 07:49 AST 14 units/L (5-40) 03/08/19 07:49 ALT 10 units/L (7-56) 03/08/19 07:49 Alkaline Phosphatase 59 units/L (35-129) 03/08/19 07:49 Total Protein 7.1 g/dL (6.3-8.2) 03/08/19 07:49 Albumin 3.2 g/dL (3.9-5) L 03/08/19 07:49 Albumin/Globulin Ratio 0.8 % 03/08/19 07:49 Active Medications - Current Medications Current Medications: Generic Name Dose Route Start Last Admin Trade Name Freq PRN Reason Stop Dose Admin Acetaminophen 650 mg 03/01/19 22:17 Tylenol PO Q4H PRN Pain MILD(1-3)/Fever >100.5/QUAN Amlodipine Besylate 10 mg 03/02/19 10:00 03/11/19 11:11 Amlodipine PO 10 mg QDAY ENOC Administration Aripiprazole 5 mg 03/02/19 10:00 03/11/19 10:59 Aripiprazole PO 5 mg QDAY ENOC Administration Enoxaparin Sodium 30 mg 03/02/19 10:00 03/11/19 11:07 Enoxaparin SUB-Q 30 mg QDAY ENOC Administration Epoetin Polo 10,000 unit 03/02/19 08:31 03/10/19 14:32 Procrit IV 10,000 unit LOKESH PRN Administration hemodialysis Heparin Sodium (Porcine) 1,000 unit 03/02/19 08:31 Heparin 10,000 Units/10 Ml IV LOKESH PRN hemodialysis Heparin Sodium (Porcine) 5,000 unit 03/02/19 08:31 Heparin IV LOKESH PRN hemodialysis Sodium Chloride 100 mls @ 999 mls/hr 03/10/19 08:08 Nacl 0.9% IV LOKESH PRN Hypotension Ondansetron HCl 4 mg 03/01/19 22:17 Zofran IV Q8H PRN Nausea And Vomiting Pantoprazole Sodium 40 mg 03/02/19 10:00 03/11/19 10:59 Protonix PO 40 mg QDAY ENOC Administration Sodium Chloride 10 ml 03/02/19 10:00 03/11/19 21:20 Sodium Chloride Flush Syringe 10 Ml IV 10 ml BID ENOC Administration Sodium Chloride 10 ml 03/01/19 22:17 Sodium Chloride Flush Syringe 10 Ml IV PRN PRN LINE FLUSH Nutrition/Malnutrition Assess - Dietary Evaluation Nutrition/Malnutrition Findings: Nutrition Notes Start: 03/02/19 09:43 Freq: Status: Active Protocol: Document 03/05/19 12:47 LM (Rec: 03/05/19 12:53 LM [email or web address]) Nutrition Notes Initial or Follow up Reassessment Current Diagnosis CKD (stage V CKD),Hypertension Other Pertinent Diagnosis hematochezia Current Diet renal diet Labs/Tests No new labs Pertinent Medications reviewed Height 5 ft 6 in Weight 56.9 kg Usual Body Weight 63.6 kg [place] Body Weight (kg) 64.54 BMI 20.2 Weight Status Appropriate Subjective/Other Test [employer] feeding pt at time of visit. Pt eating 100%. Tech reports pt with good appetite. Nepro not consumed at time of visit but tech stated pt likes the Nepro. Percent of energy/protein needs met: 100%/100% Burn Absent Trauma Absent GI Symptoms None Food Allergy No Current % PO Good (75-100%) Minimum of two criteria Yes Interpretation of Weight Loss (severe) >2% in 1 week Muscle Mass Mild Depletion (non-severe) #1 Nutrition Diagnosis Malnutrition Diagnosis Progress(for reassessment Continues documentation) Is patient on ventilator? No Is Patient Ambulatory and/or Out of Bed No REE-([place]-St. Jeor-confined to bed) 1597.080 Calculation [facility] Additional Notes Protein needs: >67 g (>1.2g/ kg) Fluid needs: 1000 - 1500 mL Nutrition Intervention Change Diet Order: continue renal diet Add Supplement/Snack (indicate name/kcal Nepro BID /protein ) Provides kCal: 850 Provides Protein (gm) 38 Goal #1 continue to meet at least 80% of dietary needs Anticipated Discharge Needs: Renal diet, w/ Nepro Supplement BID Follow-Up By: 03/13/19 Additional Comments F/U for PO/ONS intakes
[2019-03-12] MEDS: ENOXAPARIN 30 MG/0.3 ML INJ SUB-Q SCH (12:07)
[2019-03-12] MEDS: ARIPiprazole 5 MG TAB PO SCH (12:08)
[2019-03-12] MEDS: PANTOPRAZOLE 40 MG TAB PO SCH (12:08)
[2019-03-12] MEDS: amLODIPine 10 MG TAB PO SCH (12:10)
--- NOTE | 2019-03-12 16:15 | Progress Note ---
Assessment and Plan - Patient Problems (1) End-stage renal disease needing dialysis Current Visit: Yes Status: Acute Plan to address problem: Continue hemodialysis on a Wednesday, and Wednesday schedule. Unfortunately, [facility] is out of network with patient's insurance. vessel manager is now arranging for placement at [facility]. (2) Anemia in end-stage renal disease Current Visit: Yes Status: Acute Plan to address problem: Give Erythropoetin on dialysis (3) Hypertension associated with stage 5 chronic kidney disease due to type 2 diabetes mellitus Current Visit: Yes Status: Acute Plan to address problem: Follow-up blood pressure on current medications (4) Schizoaffective disorder Current Visit: Yes Status: Acute Plan to address problem: Continue management by psychiatrist Subjective Date of service: 03/12/19 Principal diagnosis: ESRD, schizophrenia, malnutrition, was of the opinion Interval history: Patient seen lying in bed. He has no complaints. Objective - Exam Narrative Exam: Middle-aged -[place] male lying in bed in no acute distress HEENT: NCAT, pink oral mucous membrane Neck: Supple, no venous distention CVS: S1S2 RRR with no murmur, rub or gallop Chest: Clear to auscultation Abdomen: Protuberant, soft, nontender, no organomegaly, bowel sounds are present Extremities: No edema Neuro: Awake, alert - Vital Signs Vital signs: Vital Signs - 12hr 03/12/19 03/12/19 03/12/19 05:35 11:49 12:10 Temperature 98.8 F 99.2 F Pulse Rate 116 H 121 H 121 H Respiratory 20 18 Rate Blood Pressure 141/100 105/85 105/85 O2 Sat by Pulse 97 100 Oximetry - Lab 03/11/19 04:34 03/11/19 04:34 Most recent lab results Calcium 9.4 mg/dL (8.4-10.2) 03/11/19 04:34 Phosphorus 5.00 mg/dL (2.5-4.5) H 03/08/19 07:49 Magnesium 2.00 mg/dL (1.7-2.3) 03/08/19 07:49 Medications & Allergies - Medications Allergies/Adverse Reactions: Allergies No Known Allergies Allergy (Unverified 04/17/17 13:03) Home Medications: Home Medications Medication Instructions Recorded Confirmed Last Taken Type ARIPiprazole 5 mg PO QDAY #30 tablet 02/27/19 03/01/19 Unknown Rx Pantoprazole [Protonix TAB] 40 mg PO QDAY #30 tablet 02/27/19 03/01/19 Unknown Rx amLODIPine 10 mg PO QDAY #30 tablet 02/27/19 03/01/19 Unknown Rx hydrALAZINE [Apresoline TAB] 50 mg PO TID #90 tab 02/27/19 03/01/19 Unknown Rx Active Medications: Generic Name Dose Route Start Last Admin Trade Name Freq PRN Reason Stop Dose Admin Acetaminophen 650 mg 03/01/19 22:17 Tylenol PO Q4H PRN Pain MILD(1-3)/Fever >100.5/QUAN Amlodipine Besylate 10 mg 03/02/19 10:00 03/12/19 12:10 Amlodipine PO Not Given QDAY ENOC Aripiprazole 5 mg 03/02/19 10:00 03/12/19 12:08 Aripiprazole PO 5 mg QDAY ENOC Administration Enoxaparin Sodium 30 mg 03/02/19 10:00 03/12/19 12:07 Enoxaparin SUB-Q 30 mg QDAY ENOC Administration Epoetin Pol[place] 10,000 unit 03/02/19 08:31 03/10/19 14:32 Procrit IV 10,000 unit LOKESH PRN Administration hemodialysis Heparin Sodium (Porcine) 1,000 unit 03/02/19 08:31 Heparin 10,000 Units/10 Ml IV LOKESH PRN hemodialysis Heparin Sodium (Porcine) 5,000 unit 03/02/19 08:31 Heparin IV LOKESH PRN hemodialysis Sodium Chloride 100 mls @ 999 mls/hr 03/10/19 08:08 Nacl 0.9% IV LOKESH PRN Hypotension Ondansetron HCl 4 mg 03/01/19 22:17 Zofran IV Q8H PRN Nausea And Vomiting Pantoprazole Sodium 40 mg 03/02/19 10:00 03/12/19 12:08 Protonix PO 40 mg QDAY ENOC Administration Sodium Chloride 10 ml 03/02/19 10:00 03/12/19 12:08 Sodium Chloride Flush Syringe 10 Ml IV 10 ml BID ENOC Administration Sodium Chloride 10 ml 03/01/19 22:17 Sodium Chloride Flush Syringe 10 Ml IV PRN PRN LINE FLUSH
--- NOTE | 2019-03-13 08:33 | Progress Note ---
Assessment and Plan Assessment and plan: Patient is 58-year-old man history of hypertension, schizophrenia, bipolar, subarachnoid hemorrhage, status post frontal craniotomy with aneurysmal clip, end-stage renal disease on dialysis was sent from [facility] because he did not have dialysis since he was discharged on Wednesday. He was discharged on Wednesday after prolonged stay. Was reported that he was denied by [facility] dialysis.he has no complaints, very poor historian. Patient is able to speak but often choses not to He previously was ambulatory but admitted last time with left sided weakness Patient stay was prolonged due to placement issues He remained clinically stable, was treated for seizures and placed on keppra, baclofen discontinued Bp meds were adjusted due hypotension He was discharged after a dialysis place was established but returns because the dialysis centers medical imaging director declined to now accept him Hydralazine stopped MIKEL on CKD 4 - vasomotor nephropathy versus progression of underlying chronic medical disease -Nephrology consulted -Avoid nephrotoxic agents -Renally dose all meds -Nephrology initiated hemdialysis on 12/6 H/O schizophrenia and bipolar - Abilify 5 mg PO daily, psych following -Hx Hypertension -BP uncontrolled. Continue to adjust medications as needed Hx Right subarachnoid hemorrhage, status post right frontal craniotomy Hx aneurysm, status post clipping -Continue supportive care -Neurology recommended outpatient follow Tobacco abuse -Current every day smoker -Counseled for cessation -Nicotine patch when necessary Moderate Protein Calorie Malnutrition Continue to encourage PO intake Thrombocytopenia. - cont to Monitor dvt/gi prophy Discharge once dialysis center obtained construction manager is now arranging for placement at [facility]. History Interval history: Patient was seen and examined. Follow-up on current diagnosis of ESRD. Overnight uneventful as no events directly reported to me. Patient denies any chest pain, shortness breath, nausea/vomiting or severe headaches. Imaging, nursing note, chart, labs and old chart reviewed. Discussed with patient. Hospitalist Physical - Physical exam Narrative exam: Gen: thin frail NAD, Awake, Alert, Orientated x 2 HEENT: NCAT, EOMI, PERRL, OP Clear Neck: supple, no adenopathy, no thyromegaly, no JVD CVS/Heart: RRR, normal S1S2, pulses present bilaterally Chest/Lungs: CTA B, Symmetrical chest expansion, good air entry bilaterally GI/Abdomen: soft, NTND, good bowel sounds, no guarding or rebound /Bladder: no suprapubic tenderness, no CVA or paraspinal tenderness Extermity/Skin: no c/c/e, no obvious rash MSK: FROM x 4 Neuro: CN 2-12 grossly intact, no new focal deficits Psych: calm - Constitutional Vitals: Temp Pulse Resp BP Pulse Ox 97.9 F 98 H 18 142/96 100 03/13/19 00:08 03/13/19 00:08 03/13/19 00:08 03/13/19 00:08 03/13/19 00:08 Results - Labs CBC & Chem 7: 03/11/19 04:34 03/11/19 04:34 Labs: Laboratory Last Values WBC 7.2 K/mm3 (4.5-11.0) 03/11/19 04:34 RBC 3.63 M/mm3 (3.65-5.03) L 03/11/19 04:34 Hgb 10.2 gm/dl (11.8-15.2) L 03/11/19 04:34 Hct 32.0 % (35.5-45.6) L 03/11/19 04:34 MCV 88 fl (84-94) 03/11/19 04:34 MCH 28 pg (28-32) 03/11/19 04:34 MCHC 32 % (32-34) 03/11/19 04:34 RDW 13.3 % (13.2-15.2) 03/11/19 04:34 Plt Count 185 K/mm3 (140-440) 03/11/19 04:34 Lymph % (Auto) 19.0 % (13.4-35.0) 03/08/19 07:49 [place] % (Auto) 10.6 % (0.0-7.3) H 03/08/19 07:49 Eos % (Auto) 9.1 % (0.0-4.3) H 03/08/19 07:49 Baso % (Auto) 0.6 % (0.0-1.8) 03/08/19 07:49 Lymph # 1.3 K/mm3 (1.2-5.4) 03/08/19 07:49 [place] # 0.7 K/mm3 (0.0-0.8) 03/08/19 07:49 Eos # 0.6 K/mm3 (0.0-0.4) H 03/08/19 07:49 Baso # 0.0 K/mm3 (0.0-0.1) 03/08/19 07:49 Seg Neutrophils % 60.7 % (40.0-70.0) 03/08/19 07:49 Seg Neutrophils # 4.1 K/mm3 (1.8-7.7) 03/08/19 07:49 Sodium 138 mmol/L (137-145) 03/11/19 04:34 Potassium 4.1 mmol/L (3.6-5.0) 03/11/19 04:34 Chloride 98.4 mmol/L (98-107) 03/11/19 04:34 Carbon Dioxide 23 mmol/L (22-30) 03/11/19 04:34 Anion Gap 21 mmol/L 03/11/19 04:34 BUN 33 mg/dL (9-20) H 03/11/19 04:34 Creatinine 6.7 mg/dL (0.8-1.5) H 03/11/19 04:34 Estimated GFR 10 ml/min 03/11/19 04:34 BUN/Creatinine Ratio 5 % 03/11/19 04:34 Glucose 100 mg/dL (75-100) 03/11/19 04:34 POC Glucose 85 (70-105) 03/04/19 09:09 Calcium 9.4 mg/dL (8.4-10.2) 03/11/19 04:34 Phosphorus 5.00 mg/dL (2.5-4.5) H 03/08/19 07:49 Magnesium 2.00 mg/dL (1.7-2.3) 03/08/19 07:49 Total Bilirubin 0.30 mg/dL (0.1-1.2) 03/08/19 07:49 AST 14 units/L (5-40) 03/08/19 07:49 ALT 10 units/L (7-56) 03/08/19 07:49 Alkaline Phosphatase 59 units/L (35-129) 03/08/19 07:49 Total Protein 7.1 g/dL (6.3-8.2) 03/08/19 07:49 Albumin 3.2 g/dL (3.9-5) L 03/08/19 07:49 Albumin/Globulin Ratio 0.8 % 03/08/19 07:49 Active Medications - Current Medications Current Medications: Generic Name Dose Route Start Last Admin Trade Name Freq PRN Reason Stop Dose Admin Acetaminophen 650 mg 03/01/19 22:17 Tylenol PO Q4H PRN Pain MILD(1-3)/Fever >100.5/QUAN Amlodipine Besylate 10 mg 03/02/19 10:00 03/12/19 12:10 Amlodipine PO Not Given QDAY ENOC Aripiprazole 5 mg 03/02/19 10:00 03/12/19 12:08 Aripiprazole PO 5 mg QDAY ENOC Administration Enoxaparin Sodium 30 mg 03/02/19 10:00 03/12/19 12:07 Enoxaparin SUB-Q 30 mg QDAY ENOC Administration Epoetin Polo 10,000 unit 03/02/19 08:31 03/10/19 14:32 Procrit IV 10,000 unit LOKESH PRN Administration hemodialysis Heparin Sodium (Porcine) 1,000 unit 03/02/19 08:31 Heparin 10,000 Units/10 Ml IV LOKESH PRN hemodialysis Heparin Sodium (Porcine) 5,000 unit 03/02/19 08:31 Heparin IV LOKESH PRN hemodialysis Sodium Chloride 100 mls @ 999 mls/hr 03/10/19 08:08 Nacl 0.9% IV LOKESH PRN Hypotension Ondansetron HCl 4 mg 03/01/19 22:17 Zofran IV Q8H PRN Nausea And Vomiting Pantoprazole Sodium 40 mg 03/02/19 10:00 03/12/19 12:08 Protonix PO 40 mg QDAY ENOC Administration Sodium Chloride 10 ml 03/02/19 10:00 03/12/19 21:16 Sodium Chloride Flush Syringe 10 Ml IV 10 ml BID ENOC Administration Sodium Chloride 10 ml 03/01/19 22:17 Sodium Chloride Flush Syringe 10 Ml IV PRN PRN LINE FLUSH Nutrition/Malnutrition Assess - Dietary Evaluation Nutrition/Malnutrition Findings: Nutrition Notes Start: 03/02/19 09:43 Freq: Status: Active Protocol: Document 03/05/19 12:47 LM (Rec: 03/05/19 12:53 LM [id number]) Nutrition Notes Initial or Follow up Reassessment Current Diagnosis CKD (stage V CKD),Hypertension Other Pertinent Diagnosis hematochezia Current Diet renal diet Labs/Tests No new labs Pertinent Medications reviewed Height 5 ft 6 in Weight 56.9 kg Usual Body Weight 63.6 kg [place] Body Weight (kg) 64.54 BMI 20.2 Weight Status Appropriate Subjective/Other Molder Helper feeding pt at time of visit. Pt eating 100%. Tech reports pt with good appetite. Nepro not consumed at time of visit but tech stated pt likes the Nepro. Percent of energy/protein needs met: 100%/100% Burn Absent Trauma Absent GI Symptoms None Food Allergy No Current % PO Good (75-100%) Minimum of two criteria Yes Interpretation of Weight Loss (severe) >2% in 1 week Muscle Mass Mild Depletion (non-severe) #1 Nutrition Diagnosis Malnutrition Diagnosis Progress(for reassessment Continues documentation) Is patient on ventilator? No Is Patient Ambulatory and/or Out of Bed No REE-([place]-confined to bed) 1597.080 [facility]culation [facility] Additional Notes Protein needs: >67 g (>1.2g/ kg) Fluid needs: 1000 - 1500 mL Nutrition Intervention Change Diet Order: continue renal diet Add Supplement/Snack (indicate name/kcal Nepro BID /protein ) Provides kCal: 850 Provides Protein (gm) 38 Goal #1 continue to meet at least 80% of dietary needs Anticipated Discharge Needs: Renal diet, w/ Nepro Supplement BID Follow-Up By: 03/13/19 Additional Comments F/U for PO/ONS intakes
--- NOTE | 2019-03-13 10:06 | Progress Note ---
Assessment and Plan - Patient Problems (1) End-stage renal disease needing dialysis Current Visit: Yes Status: Acute Plan to address problem: Continue hemodialysis on a Wednesday, and Wednesday schedule. Unfortunately, [facility] is out of network with patient's insurance. manager account management is now arranging for placement at [facility]. (2) Anemia in end-stage renal disease Current Visit: Yes Status: Acute Plan to address problem: Give Erythropoetin on dialysis (3) Hypertension associated with stage 5 chronic kidney disease due to type 2 diabetes mellitus Current Visit: Yes Status: Acute Plan to address problem: Follow-up blood pressure on current medications (4) Schizoaffective disorder Current Visit: Yes Status: Acute Plan to address problem: Continue management by psychiatrist Subjective Date of service: 03/13/19 Principal diagnosis: ESRD, schizophrenia, malnutrition, was of the opinion Interval history: Patient seen lying in bed. He has no complaints. Objective - Exam Narrative Exam: Middle-aged -[place] male lying in bed in no acute distress HEENT: NCAT, pink oral mucous membrane Neck: Supple, no venous distention CVS: S1S2 RRR with no murmur, rub or gallop Chest: Clear to auscultation Abdomen: Protuberant, soft, nontender, no organomegaly, bowel sounds are present Extremities: No edema Neuro: Awake, alert - Vital Signs Vital signs: Vital Signs - 12hr 03/13/19 00:08 Temperature 97.9 F Pulse Rate 98 H Respiratory 18 Rate Blood Pressure 142/96 O2 Sat by Pulse 100 Oximetry - Lab 03/11/19 04:34 03/11/19 04:34 Most recent lab results Calcium 9.4 mg/dL (8.4-10.2) 03/11/19 04:34 Phosphorus 5.00 mg/dL (2.5-4.5) H 03/08/19 07:49 Magnesium 2.00 mg/dL (1.7-2.3) 03/08/19 07:49 Medications & Allergies - Medications Allergies/Adverse Reactions: Allergies No Known Allergies Allergy (Unverified 04/17/17 13:03) Home Medications: Home Medications Medication Instructions Recorded Confirmed Last Taken Type ARIPiprazole 5 mg PO QDAY #30 tablet 02/27/19 03/01/19 Unknown Rx Pantoprazole [Protonix TAB] 40 mg PO QDAY #30 tablet 02/27/19 03/01/19 Unknown Rx amLODIPine 10 mg PO QDAY #30 tablet 02/27/19 03/01/19 Unknown Rx hydrALAZINE [Apresoline TAB] 50 mg PO TID #90 tab 02/27/19 03/01/19 Unknown Rx Active Medications: Generic Name Dose Route Start Last Admin Trade Name Freq PRN Reason Stop Dose Admin Acetaminophen 650 mg 03/01/19 22:17 Tylenol PO Q4H PRN Pain MILD(1-3)/Fever >100.5/QUAN Amlodipine Besylate 10 mg 03/02/19 10:00 03/12/19 12:10 Amlodipine PO Not Given QDAY ENOC Aripiprazole 5 mg 03/02/19 10:00 03/12/19 12:08 Aripiprazole PO 5 mg QDAY ENOC Administration Enoxaparin Sodium 30 mg 03/02/19 10:00 03/12/19 12:07 Enoxaparin SUB-Q 30 mg QDAY ENOC Administration Epoetin Polo 10,000 unit 03/02/19 08:31 03/10/19 14:32 Procrit IV 10,000 unit LOKESH PRN Administration hemodialysis Heparin Sodium (Porcine) 1,000 unit 03/02/19 08:31 Heparin 10,000 Units/10 Ml IV LOKESH PRN hemodialysis Heparin Sodium (Porcine) 5,000 unit 03/02/19 08:31 Heparin IV LOKESH PRN hemodialysis Sodium Chloride 100 mls @ 999 mls/hr 03/10/19 08:08 Nacl 0.9% IV LOKESH PRN Hypotension Ondansetron HCl 4 mg 03/01/19 22:17 Zofran IV Q8H PRN Nausea And Vomiting Pantoprazole Sodium 40 mg 03/02/19 10:00 03/12/19 12:08 Protonix PO 40 mg QDAY ENOC Administration Sodium Chloride 10 ml 03/02/19 10:00 03/12/19 21:16 Sodium Chloride Flush Syringe 10 Ml IV 10 ml BID ENOC Administration Sodium Chloride 10 ml 03/01/19 22:17 Sodium Chloride Flush Syringe 10 Ml IV PRN PRN LINE FLUSH
[2019-03-13] MEDS: amLODIPine 10 MG TAB PO SCH (10:54)
[2019-03-13] MEDS: ARIPiprazole 5 MG TAB PO SCH (10:54)
[2019-03-13] MEDS: ENOXAPARIN 30 MG/0.3 ML INJ SUB-Q SCH (10:54)
[2019-03-13] MEDS: PANTOPRAZOLE 40 MG TAB PO SCH (10:55)
[2019-03-13] MEDS ORDERED: SODIUM CHLORIDE*PRIMING MACHINE ONLY FOR DIALYSIS MC ONE (18:17)
--- NOTE | 2019-03-14 08:50 | Progress Note ---
Assessment and Plan - Patient Problems (1) End-stage renal disease needing dialysis Current Visit: Yes Status: Acute Plan to address problem: Continue hemodialysis on a Wednesday, and Wednesday schedule. Unfortunately, [facility] is out of network with patient's insurance. legal operations manager is now arranging for placement at [facility]. (2) Anemia in end-stage renal disease Current Visit: Yes Status: Acute Plan to address problem: Give Erythropoetin on dialysis (3) Hypertension associated with stage 5 chronic kidney disease due to type 2 diabetes mellitus Current Visit: Yes Status: Acute Plan to address problem: Follow-up blood pressure on current medications (4) Schizoaffective disorder Current Visit: Yes Status: Acute Plan to address problem: Continue management by psychiatrist Subjective Date of service: 03/14/19 Principal diagnosis: ESRD, schizophrenia, malnutrition, was of the opinion Interval history: Patient seen lying in bed. He has no complaints. Objective - Exam Narrative Exam: Middle-aged -Northern [place] male lying in bed in no acute distress HEENT: NCAT, pink oral mucous membrane Neck: Supple, no venous distention CVS: S1S2 RRR with no murmur, rub or gallop Chest: Clear to auscultation Abdomen: Protuberant, soft, nontender, no organomegaly, bowel sounds are present Extremities: No edema Neuro: Awake, alert - Vital Signs Vital signs: Vital Signs - 12hr 03/13/19 03/13/19 03/14/19 22:00 23:25 05:26 Temperature 98.9 F 98.7 F Pulse Rate 108 H 107 H Pulse Rate [ 100 H Apical] Respiratory 20 20 Rate Blood Pressure 130/94 134/83 O2 Sat by Pulse 99 97 Oximetry - Lab 03/11/19 04:34 03/11/19 04:34 Most recent lab results Calcium 9.4 mg/dL (8.4-10.2) 03/11/19 04:34 Phosphorus 5.00 mg/dL (2.5-4.5) H 03/08/19 07:49 Magnesium 2.00 mg/dL (1.7-2.3) 03/08/19 07:49 Medications & Allergies - Medications Allergies/Adverse Reactions: Allergies No Known Allergies Allergy (Unverified 04/17/17 13:03) Home Medications: Home Medications Medication Instructions Recorded Confirmed Last Taken Type ARIPiprazole 5 mg PO QDAY #30 tablet 02/27/19 03/01/19 Unknown Rx Pantoprazole [Protonix TAB] 40 mg PO QDAY #30 tablet 02/27/19 03/01/19 Unknown Rx amLODIPine 10 mg PO QDAY #30 tablet 02/27/19 03/01/19 Unknown Rx hydrALAZINE [Apresoline TAB] 50 mg PO TID #90 tab 02/27/19 03/01/19 Unknown Rx Active Medications: Generic Name Dose Route Start Last Admin Trade Name Freq PRN Reason Stop Dose Admin Acetaminophen 650 mg 03/01/19 22:17 Tylenol PO Q4H PRN Pain MILD(1-3)/Fever >100.5/QUAN Amlodipine Besylate 10 mg 03/02/19 10:00 03/13/19 10:54 Amlodipine PO Not Given QDAY [facility] Aripiprazole 5 mg 03/02/19 10:00 03/13/19 10:54 Aripiprazole PO Not Given QDAY [facility] Enoxaparin Sodium 30 mg 03/02/19 10:00 03/13/19 10:54 Enoxaparin SUB-Q Not Given QDAY [facility] Epoetin Polo 10,000 unit 03/02/19 08:31 03/10/19 14:32 Procrit IV 10,000 unit LOKESH PRN Administration hemodialysis Heparin Sodium (Porcine) 1,000 unit 03/02/19 08:31 Heparin 10,000 Units/10 Ml IV LOKESH PRN hemodialysis Heparin Sodium (Porcine) 5,000 unit 03/02/19 08:31 Heparin IV LOKESH PRN hemodialysis Sodium Chloride 100 mls @ 999 mls/hr 03/10/19 08:08 Nacl 0.9% IV LOKESH PRN Hypotension Ondansetron HCl 4 mg 03/01/19 22:17 Zofran IV Q8H PRN Nausea And Vomiting Pantoprazole Sodium 40 mg 03/02/19 10:00 03/13/19 10:55 Protonix PO Not Given QDAY ENOC Sodium Chloride 10 ml 03/02/19 10:00 03/12/19 21:16 Sodium Chloride Flush Syringe 10 Ml IV 10 ml BID ENOC Administration Sodium Chloride 10 ml 03/01/19 22:17 Sodium Chloride Flush Syringe 10 Ml IV PRN PRN LINE FLUSH
[2019-03-14] MEDS: PANTOPRAZOLE 40 MG TAB PO SCH (10:26)
[2019-03-14] MEDS: ENOXAPARIN 30 MG/0.3 ML INJ SUB-Q SCH (10:26)
[2019-03-14] MEDS: ARIPiprazole 5 MG TAB PO SCH (10:26)
[2019-03-14] MEDS: amLODIPine 10 MG TAB PO SCH (10:26)
--- NOTE | 2019-03-14 13:08 | Progress Note ---
Assessment and Plan Assessment and plan: Patient is 58-year-old man history of hypertension, schizophrenia, bipolar, subarachnoid hemorrhage, status post frontal craniotomy with aneurysmal clip, end-stage renal disease on dialysis was sent from [facility] because he did not have dialysis since he was discharged on Wednesday. He was discharged on Wednesday after prolonged stay. Was reported that he was denied by [facility] dialysis.he has no complaints, very poor historian. Patient is able to speak but often choses not to He previously was ambulatory but admitted last time with left sided weakness Patient stay was prolonged due to placement issues He remained clinically stable, was treated for seizures and placed on keppra, baclofen discontinued Bp meds were adjusted due hypotension He was discharged after a dialysis place was established but returns because the dialysis centers medical communication specialist declined to now accept him Hydralazine stopped MIKEL on CKD 4 - vasomotor nephropathy versus progression of underlying chronic medical disease -Nephrology consulted -Avoid nephrotoxic agents -Renally dose all meds -Nephrology initiated hemdialysis on 12/6 H/O schizophrenia and bipolar - Abilify 5 mg PO daily, psych following -Hx Hypertension -BP uncontrolled. Continue to adjust medications as needed Hx Right subarachnoid hemorrhage, status post right frontal craniotomy Hx aneurysm, status post clipping -Continue supportive care -Neurology recommended outpatient follow Tobacco abuse -Current every day smoker -Counseled for cessation -Nicotine patch when necessary Moderate Protein Calorie Malnutrition Continue to encourage PO intake Thrombocytopenia. - cont to Monitor dvt/gi prophy Discharge once dialysis center obtained healthcare account manager is now arranging for placement at [facility]. History Interval history: Patient was seen and examined. Follow-up on current diagnosis of ESRD. Overnight uneventful as no events directly reported to me. Patient denies any chest pain, shortness breath, nausea/vomiting or severe headaches. Imaging, nursing note, chart, labs and old chart reviewed. Discussed with patient. Hospitalist Physical - Physical exam Narrative exam: Gen: thin frail NAD, Awake, Alert, Orientated x 2 HEENT: NCAT, EOMI, PERRL, OP Clear Neck: supple, no adenopathy, no thyromegaly, no JVD CVS/Heart: RRR, normal S1S2, pulses present bilaterally Chest/Lungs: CTA B, Symmetrical chest expansion, good air entry bilaterally GI/Abdomen: soft, NTND, good bowel sounds, no guarding or rebound /Bladder: no suprapubic tenderness, no CVA or paraspinal tenderness Extermity/Skin: no c/c/e, no obvious rash MSK: FROM x 4 Neuro: CN 2-12 grossly intact, no new focal deficits Psych: calm - Constitutional Vitals: Temp Pulse Resp BP Pulse Ox 97.2 F L 103 H 20 127/96 100 03/14/19 11:29 03/14/19 11:29 03/14/19 11:29 03/14/19 11:29 03/14/19 11:29 Results - Labs CBC & Chem 7: 03/11/19 04:34 03/11/19 04:34 Labs: Laboratory Last Values WBC 7.2 K/mm3 (4.5-11.0) 03/11/19 04:34 RBC 3.63 M/mm3 (3.65-5.03) L 03/11/19 04:34 Hgb 10.2 gm/dl (11.8-15.2) L 03/11/19 04:34 Hct 32.0 % (35.5-45.6) L 03/11/19 04:34 MCV 88 fl (84-94) 03/11/19 04:34 MCH 28 pg (28-32) 03/11/19 04:34 MCHC 32 % (32-34) 03/11/19 04:34 RDW 13.3 % (13.2-15.2) 03/11/19 04:34 Plt Count 185 K/mm3 (140-440) 03/11/19 04:34 Lymph % (Auto) 19.0 % (13.4-35.0) 03/08/19 07:49 [place] % (Auto) 10.6 % (0.0-7.3) H 03/08/19 07:49 Eos % (Auto) 9.1 % (0.0-4.3) H 03/08/19 07:49 Baso % (Auto) 0.6 % (0.0-1.8) 03/08/19 07:49 Lymph # 1.3 K/mm3 (1.2-5.4) 03/08/19 07:49 [place] # 0.7 K/mm3 (0.0-0.8) 03/08/19 07:49 Eos # 0.6 K/mm3 (0.0-0.4) H 03/08/19 07:49 Baso # 0.0 K/mm3 (0.0-0.1) 03/08/19 07:49 Seg Neutrophils % 60.7 % (40.0-70.0) 03/08/19 07:49 Seg Neutrophils # 4.1 K/mm3 (1.8-7.7) 03/08/19 07:49 Sodium 138 mmol/L (137-145) 03/11/19 04:34 Potassium 4.1 mmol/L (3.6-5.0) 03/11/19 04:34 Chloride 98.4 mmol/L (98-107) 03/11/19 04:34 Carbon Dioxide 23 mmol/L (22-30) 03/11/19 04:34 Anion Gap 21 mmol/L 03/11/19 04:34 BUN 33 mg/dL (9-20) H 03/11/19 04:34 Creatinine 6.7 mg/dL (0.8-1.5) H 03/11/19 04:34 Estimated GFR 10 ml/min 03/11/19 04:34 BUN/Creatinine Ratio 5 % 03/11/19 04:34 Glucose 100 mg/dL (75-100) 03/11/19 04:34 POC Glucose 85 (70-105) 03/04/19 09:09 Calcium 9.4 mg/dL (8.4-10.2) 03/11/19 04:34 Phosphorus 5.00 mg/dL (2.5-4.5) H 03/08/19 07:49 Magnesium 2.00 mg/dL (1.7-2.3) 03/08/19 07:49 Total Bilirubin 0.30 mg/dL (0.1-1.2) 03/08/19 07:49 AST 14 units/L (5-40) 03/08/19 07:49 ALT 10 units/L (7-56) 03/08/19 07:49 Alkaline Phosphatase 59 units/L (35-129) 03/08/19 07:49 Total Protein 7.1 g/dL (6.3-8.2) 03/08/19 07:49 Albumin 3.2 g/dL (3.9-5) L 03/08/19 07:49 Albumin/Globulin Ratio 0.8 % 03/08/19 07:49 Active Medications - Current Medications Current Medications: Generic Name Dose Route Start Last Admin Trade Name Freq PRN Reason Stop Dose Admin Acetaminophen 650 mg 03/01/19 22:17 Tylenol PO Q4H PRN Pain MILD(1-3)/Fever >100.5/QUAN Amlodipine Besylate 10 mg 03/02/19 10:00 03/14/19 10:26 Amlodipine PO 10 mg QDAY ENOC Administration Aripiprazole 5 mg 03/02/19 10:00 03/14/19 10:26 Aripiprazole PO 5 mg QDAY ENOC Administration Enoxaparin Sodium 30 mg 03/02/19 10:00 03/14/19 10:26 Enoxaparin SUB-Q 30 mg QDAY ENOC Administration Epoetin Pol[place] 10,000 unit 03/02/19 08:31 03/10/19 14:32 Procrit IV 10,000 unit LOKESH PRN Administration hemodialysis Heparin Sodium (Porcine) 1,000 unit 03/02/19 08:31 Heparin 10,000 Units/10 Ml IV LOKESH PRN hemodialysis Heparin Sodium (Porcine) 5,000 unit 03/02/19 08:31 Heparin IV LOKESH PRN hemodialysis Sodium Chloride 100 mls @ 999 mls/hr 03/10/19 08:08 Nacl 0.9% IV LOKESH PRN Hypotension Ondansetron HCl 4 mg 03/01/19 22:17 Zofran IV Q8H PRN Nausea And Vomiting Pantoprazole Sodium 40 mg 03/02/19 10:00 03/14/19 10:26 Protonix PO 40 mg QDAY ENOC Administration Sodium Chloride 10 ml 03/02/19 10:00 03/14/19 10:25 Sodium Chloride Flush Syringe 10 Ml IV 10 ml BID ENOC Administration Sodium Chloride 10 ml 03/01/19 22:17 Sodium Chloride Flush Syringe 10 Ml IV PRN PRN LINE FLUSH Nutrition/Malnutrition Assess - Dietary Evaluation Nutrition/Malnutrition Findings: Nutrition Notes Start: 03/02/19 09:43 Freq: Status: Active Protocol: Document 03/13/19 14:17 LP (Rec: 03/13/19 14:18 LP [id number]) Nutrition Notes Initial or Follow up Reassessment Current Diagnosis CKD (stage V CKD),Hypertension Other Pertinent Diagnosis hematochezia Current Diet renal diet with Nepro BID Labs/Tests Reviewed Pertinent Medications Reviewed Height 5 ft 6 in Weight 57.4 kg [place] Body Weight (kg) 64.54 BMI 20.4 Weight Status Appropriate Subjective/Other Information Pt ccontinues eating well 75- 100% of meals recorded. Drinking supplements. Percent of energy/protein needs met: 100%/100% Burn Absent Trauma Absent GI Symptoms None Food Allergy No Current % PO Good (75-100%) Minimum of two criteria Yes Interpretation of Weight Loss (severe) >2% in 1 week Muscle Mass Mild Depletion (non-severe) #1 Nutrition Diagnosis Malnutrition Diagnosis Progress(for reassessment Continues documentation) Is patient on ventilator? No Is Patient Ambulatory and/or Out of Bed No REE-([facility]-confined to bed) 1603.080 Calculation Used for Recommendations [facility] Additional Notes Protein needs: >67 g (>1.2g/ kg) Fluid needs: 1000 - 1500 mL Nutrition Intervention Change Diet Order: continue renal diet Add Supplement/Snack (indicate name/kcal Nepro BID /protein ) Provides kCal: 850 Provides Protein (gm) 38 Goal #1 continue to meet at least 80% of dietary needs Anticipated Discharge Needs: Renal diet, w/ Nepro Supplement BID Follow-Up By: 03/20/19 Additional Comments Follow for stable intakes
[2019-03-15] MEDS ORDERED: SODIUM CHLORIDE*PRIMING MACHINE ONLY FOR DIALYSIS MC ONE (10:19)
--- NOTE | 2019-03-15 10:55 | Progress Note ---
Assessment and Plan - Patient Problems (1) End-stage renal disease needing dialysis Current Visit: Yes Status: Acute Plan to address problem: Continue hemodialysis on a Wednesday, and Wednesday schedule. Unfortunately, [facility] [place] patient's insurance. field operations farm manager is now arranging for placement at [facility]. (2) Hypertension associated with stage 5 chronic kidney disease due to type 2 diabetes mellitus Current Visit: Yes Status: Acute Plan to address problem: Follow-up blood pressure on current medications (3) Anemia Current Visit: No Status: Acute Plan to address problem: cont EPO with HD (4) Schizoaffective disorder Current Visit: No Status: Chronic Plan to address problem: follow psychiatry recommendations Subjective Date of service: 03/15/19 Principal diagnosis: ESRD, schizophrenia, malnutrition, was of the opinion Interval history: pt awake, alert in no acute distress. tolerating HD well Objective - Vital Signs Vital signs: Vital Signs - 12hr 03/15/19 03/15/19 03/15/19 01:00 05:48 09:04 Temperature 99.2 F 99.2 F Pulse Rate 78 101 H Respiratory 16 16 Rate Blood Pressure 142/107 124/93 140/106 O2 Sat by Pulse 100 99 Oximetry 03/15/19 03/15/19 03/15/19 09:05 09:45 10:00 Temperature 99.1 F Pulse Rate 91 H 99 H 103 H Respiratory 18 Rate Blood Pressure 123/87 125/82 O2 Sat by Pulse Oximetry 03/15/19 03/15/19 10:15 10:30 Temperature Pulse Rate 102 H 117 H Respiratory Rate Blood Pressure 125/86 118/78 O2 Sat by Pulse Oximetry - General Appearance General appearance: well-developed, well-nourished, appears stated age EENT: ATNC, PERRL, mucous membranes moist Neck: no JVD Respiratory: Present: Clear to Ascultation Cardiology: regular, S1S2 Gastrointestinal: normoactive bowel sounds Integumentary: no rash, other (no edema ) Neurologic: no focal deficit, strength 5/5 Psychiatric: mood/affect appropriate, cooperative - Lab 03/11/19 04:34 03/11/19 04:34 Most recent lab results Calcium 9.4 mg/dL (8.4-10.2) 03/11/19 04:34 Phosphorus 5.00 mg/dL (2.5-4.5) H 03/08/19 07:49 Magnesium 2.00 mg/dL (1.7-2.3) 03/08/19 07:49 Medications & Allergies - Medications Allergies/Adverse Reactions: Allergies No Known Allergies Allergy (Unverified 04/17/17 13:03) Home Medications: Home Medications Medication Instructions Recorded Confirmed Last Taken Type ARIPiprazole 5 mg PO QDAY #30 tablet 02/27/19 03/01/19 Unknown Rx Pantoprazole [Protonix TAB] 40 mg PO QDAY #30 tablet 02/27/19 03/01/19 Unknown Rx amLODIPine 10 mg PO QDAY #30 tablet 02/27/19 03/01/19 Unknown Rx hydrALAZINE [Apresoline TAB] 50 mg PO TID #90 tab 02/27/19 03/01/19 Unknown Rx Active Medications: Generic Name Dose Route Start Last Admin Trade Name Freq PRN Reason Stop Dose Admin Acetaminophen 650 mg 03/01/19 22:17 Tylenol PO Q4H PRN Pain MILD(1-3)/Fever >100.5/QUAN Amlodipine Besylate 10 mg 03/02/19 10:00 03/14/19 10:26 Amlodipine PO 10 mg QDAY ENOC Administration Aripiprazole 5 mg 03/02/19 10:00 03/14/19 10:26 Aripiprazole PO 5 mg QDAY ENOC Administration Enoxaparin Sodium 30 mg 03/02/19 10:00 03/14/19 10:26 Enoxaparin SUB-Q 30 mg QDAY ENOC Administration Epoetin Polo 10,000 unit 03/02/19 08:31 03/10/19 14:32 Procrit IV 10,000 unit LOKESH PRN Administration hemodialysis Heparin Sodium (Porcine) 1,000 unit 03/02/19 08:31 03/15/19 10:28 Heparin 10,000 Units/10 Ml IV 1,000 unit LOKESH PRN Administration hemodialysis Heparin Sodium (Porcine) 5,000 unit 03/02/19 08:31 Heparin IV LOKESH PRN hemodialysis Sodium Chloride 100 mls @ 999 mls/hr 03/10/19 08:08 Nacl 0.9% IV LOKESH PRN Hypotension Ondansetron HCl 4 mg 03/01/19 22:17 Zofran IV Q8H PRN Nausea And Vomiting Pantoprazole Sodium 40 mg 03/02/19 10:00 03/14/19 10:26 Protonix PO 40 mg QDAY ENOC Administration Sodium Chloride 10 ml 03/02/19 10:00 03/14/19 22:07 Sodium Chloride Flush Syringe 10 Ml IV 10 ml BID ENOC Administration Sodium Chloride 10 ml 03/01/19 22:17 Sodium Chloride Flush Syringe 10 Ml IV PRN PRN LINE FLUSH
[2019-03-15] MEDS: ARIPiprazole 5 MG TAB PO SCH (13:49)
[2019-03-15] MEDS: PANTOPRAZOLE 40 MG TAB PO SCH (13:49)
[2019-03-15] MEDS: ENOXAPARIN 30 MG/0.3 ML INJ SUB-Q SCH (13:49)
[2019-03-15] MEDS: amLODIPine 10 MG TAB PO SCH (13:50)
[2019-03-15] MEDS: EPOETIN ALFA 10,000 UNIT/1 ML INJ IV PRN (14:21)
--- NOTE | 2019-03-15 15:09 | Progress Note ---
Assessment and Plan Assessment and plan: Patient is 58-year-old man history of hypertension, schizophrenia, bipolar, subarachnoid hemorrhage, status post frontal craniotomy with aneurysmal clip, end-stage renal disease on dialysis was sent from [facility] because he did not have dialysis since he was discharged on Wednesday. He was discharged on Wednesday after prolonged stay. Was reported that he was denied by [facility] dialysis.he has no complaints, very poor historian. Patient is able to speak but often choses not to He previously was ambulatory but admitted last time with left sided weakness Patient stay was prolonged due to placement issues He remained clinically stable, was treated for seizures and placed on keppra, baclofen discontinued Bp meds were adjusted due hypotension He was discharged after a dialysis place was established but returns because the dialysis centers caregivers non medical declined to now accept him Hydralazine stopped MIKEL on CKD 4 - vasomotor nephropathy versus progression of underlying chronic medical disease -Nephrology consulted -Avoid nephrotoxic agents -Renally dose all meds -Nephrology initiated hemdialysis on 12/6 H/O schizophrenia and bipolar - Abilify 5 mg PO daily, psych following -Hx Hypertension -BP uncontrolled. Continue to adjust medications as needed Hx Right subarachnoid hemorrhage, status post right frontal craniotomy Hx aneurysm, status post clipping -Continue supportive care -Neurology recommended outpatient follow Tobacco abuse -Current every day smoker -Counseled for cessation -Nicotine patch when necessary Moderate Protein Calorie Malnutrition Continue to encourage PO intake Thrombocytopenia. - cont to Monitor dvt/gi prophy Discharge once dialysis center obtained truck service manager is now arranging for placement at [facility]. History Interval history: Patient was seen and examined. Follow-up on current diagnosis of ESRD. Overnight uneventful as no events directly reported to me. Patient denies any chest pain, shortness breath, nausea/vomiting or severe headaches. Imaging, nursing note, chart, labs and old chart reviewed. Discussed with patient. Hospitalist Physical - Physical exam Narrative exam: Gen: thin frail NAD, Awake, Alert, Orientated x 2 HEENT: NCAT, EOMI, PERRL, OP Clear Neck: supple, no adenopathy, no thyromegaly, no JVD CVS/Heart: RRR, normal S1S2, pulses present bilaterally Chest/Lungs: CTA B, Symmetrical chest expansion, good air entry bilaterally GI/Abdomen: soft, NTND, good bowel sounds, no guarding or rebound /Bladder: no suprapubic tenderness, no CVA or paraspinal tenderness Extermity/Skin: no c/c/e, no obvious rash MSK: FROM x 4 Neuro: CN 2-12 grossly intact, no new focal deficits Psych: calm - Constitutional Vitals: Temp Pulse Resp BP Pulse Ox 98.0 F 98 H 16 132/90 98 03/15/19 13:00 03/15/19 13:50 03/15/19 13:00 03/15/19 13:50 03/15/19 13:00 Results - Labs CBC & Chem 7: 03/11/19 04:34 03/11/19 04:34 Labs: Laboratory Last Values WBC 7.2 K/mm3 (4.5-11.0) 03/11/19 04:34 RBC 3.63 M/mm3 (3.65-5.03) L 03/11/19 04:34 Hgb 10.2 gm/dl (11.8-15.2) L 03/11/19 04:34 Hct 32.0 % (35.5-45.6) L 03/11/19 04:34 MCV 88 fl (84-94) 03/11/19 04:34 MCH 28 pg (28-32) 03/11/19 04:34 MCHC 32 % (32-34) 03/11/19 04:34 RDW 13.3 % (13.2-15.2) 03/11/19 04:34 Plt Count 185 K/mm3 (140-440) 03/11/19 04:34 Lymph % (Auto) 19.0 % (13.4-35.0) 03/08/19 07:49 [place] % (Auto) 10.6 % (0.0-7.3) H 03/08/19 07:49 Eos % (Auto) 9.1 % (0.0-4.3) H 03/08/19 07:49 Baso % (Auto) 0.6 % (0.0-1.8) 03/08/19 07:49 Lymph # 1.3 K/mm3 (1.2-5.4) 03/08/19 07:49 [place] # 0.7 K/mm3 (0.0-0.8) 03/08/19 07:49 Eos # 0.6 K/mm3 (0.0-0.4) H 03/08/19 07:49 Baso # 0.0 K/mm3 (0.0-0.1) 03/08/19 07:49 Seg Neutrophils % 60.7 % (40.0-70.0) 03/08/19 07:49 Seg Neutrophils # 4.1 K/mm3 (1.8-7.7) 03/08/19 07:49 Sodium 138 mmol/L (137-145) 03/11/19 04:34 Potassium 4.1 mmol/L (3.6-5.0) 03/11/19 04:34 Chloride 98.4 mmol/L (98-107) 03/11/19 04:34 Carbon Dioxide 23 mmol/L (22-30) 03/11/19 04:34 Anion Gap 21 mmol/L 03/11/19 04:34 BUN 33 mg/dL (9-20) H 03/11/19 04:34 Creatinine 6.7 mg/dL (0.8-1.5) H 03/11/19 04:34 Estimated GFR 10 ml/min 03/11/19 04:34 BUN/Creatinine Ratio 5 % 03/11/19 04:34 Glucose 100 mg/dL (75-100) 03/11/19 04:34 POC Glucose 183 (70-105) H 03/15/19 11:20 Calcium 9.4 mg/dL (8.4-10.2) 03/11/19 04:34 Phosphorus 5.00 mg/dL (2.5-4.5) H 03/08/19 07:49 Magnesium 2.00 mg/dL (1.7-2.3) 03/08/19 07:49 Total Bilirubin 0.30 mg/dL (0.1-1.2) 03/08/19 07:49 AST 14 units/L (5-40) 03/08/19 07:49 ALT 10 units/L (7-56) 03/08/19 07:49 Alkaline Phosphatase 59 units/L (35-129) 03/08/19 07:49 Total Protein 7.1 g/dL (6.3-8.2) 03/08/19 07:49 Albumin 3.2 g/dL (3.9-5) L 03/08/19 07:49 Albumin/Globulin Ratio 0.8 % 03/08/19 07:49 Active Medications - Current Medications Current Medications: Generic Name Dose Route Start Last Admin Trade Name Freq PRN Reason Stop Dose Admin Acetaminophen 650 mg 03/01/19 22:17 Tylenol PO Q4H PRN Pain MILD(1-3)/Fever >100.5/QUAN Amlodipine Besylate 10 mg 03/02/19 10:00 03/15/19 13:50 Amlodipine PO 10 mg QDAY ENOC Administration Aripiprazole 5 mg 03/02/19 10:00 03/15/19 13:49 Aripiprazole PO 5 mg QDAY ENOC Administration Enoxaparin Sodium 30 mg 03/02/19 10:00 03/15/19 13:49 Enoxaparin SUB-Q 30 mg QDAY ENOC Administration Epoetin Polo 10,000 unit 03/02/19 08:31 03/15/19 14:21 Procrit IV 10,000 unit LOKESH PRN Administration hemodialysis Heparin Sodium (Porcine) 1,000 unit 03/02/19 08:31 03/15/19 10:28 Heparin 10,000 Units/10 Ml IV 1,000 unit LOKESH PRN Administration hemodialysis Heparin Sodium (Porcine) 5,000 unit 03/02/19 08:31 03/15/19 14:21 Heparin IV 5,000 unit LOKESH PRN Administration hemodialysis Sodium Chloride 100 mls @ 999 mls/hr 03/10/19 08:08 Nacl 0.9% IV LOKESH PRN Hypotension Ondansetron HCl 4 mg 03/01/19 22:17 Zofran IV Q8H PRN Nausea And Vomiting Pantoprazole Sodium 40 mg 03/02/19 10:00 03/15/19 13:49 Protonix PO 40 mg QDAY ENOC Administration Sodium Chloride 10 ml 03/02/19 10:00 03/15/19 13:50 Sodium Chloride Flush Syringe 10 Ml IV 10 ml BID ENOC Administration Sodium Chloride 10 ml 03/01/19 22:17 Sodium Chloride Flush Syringe 10 Ml IV PRN PRN LINE FLUSH Nutrition/Malnutrition Assess - Dietary Evaluation Nutrition/Malnutrition Findings: Nutrition Notes Start: 03/02/19 09:43 Freq: Status: Active Protocol: Document 03/13/19 14:17 LP (Rec: 03/13/19 14:18 LP [id number]) Nutrition Notes Initial or Follow up Reassessment Current Diagnosis CKD (stage V CKD),Hypertension Other Pertinent Diagnosis hematochezia Current Diet renal diet with Nepro BID Labs/Tests Reviewed Pertinent Medications Reviewed Height 5 ft 6 in Weight 57.4 kg [place] Body Weight (kg) 64.54 BMI 20.4 Weight Status Appropriate Subjective/Other Information Pt ccontinues eating well 75- 100% of meals recorded. Drinking supplements. Percent of energy/protein needs met: 100%/100% Burn Absent Trauma Absent GI Symptoms None Food Allergy No Current % PO Good (75-100%) Minimum of two criteria Yes Interpretation of Weight Loss (severe) >2% in 1 week Muscle Mass Mild Depletion (non-severe) #1 Nutrition Diagnosis Malnutrition Diagnosis Progress(for reassessment Continues documentation) Is patient on ventilator? No Is Patient Ambulatory and/or Out of Bed No REE-([facility]-confined to bed) 1603.080 Calculation Used for Recommendations [facility] Additional Notes Protein needs: >67 g (>1.2g/ kg) Fluid needs: 1000 - 1500 mL Nutrition Intervention Change Diet Order: continue renal diet Add Supplement/Snack (indicate name/kcal Nepro BID /protein ) Provides kCal: 850 Provides Protein (gm) 38 Goal #1 continue to meet at least 80% of dietary needs Anticipated Discharge Needs: Renal diet, w/ Nepro Supplement BID Follow-Up By: 03/20/19 Additional Comments Follow for stable intakes
[2019-03-16] MEDS: ENOXAPARIN 30 MG/0.3 ML INJ SUB-Q SCH (09:27)
[2019-03-16] MEDS: ARIPiprazole 5 MG TAB PO SCH (09:27)
[2019-03-16] MEDS: amLODIPine 10 MG TAB PO SCH (09:27)
[2019-03-16] MEDS: PANTOPRAZOLE 40 MG TAB PO SCH (09:27)
--- NOTE | 2019-03-16 12:43 | Progress Note ---
Assessment and Plan - Patient Problems (1) End-stage renal disease needing dialysis Current Visit: Yes Status: Chronic Plan to address problem: Continue on TTS inpatient HD schedule. Awaiting outpatient HD placement. (2) Hypertension associated with stage 5 chronic kidney disease due to type 2 diabetes mellitus Current Visit: Yes Status: Chronic Plan to address problem: Monitor blood pressures with current regimen, (3) Anemia in end-stage renal disease Current Visit: Yes Status: Chronic Plan to address problem: TWAN therapy with HD. (4) Schizoaffective disorder Current Visit: Yes Status: Chronic Plan to address problem: Management per psychiatry recommendations. Subjective Date of service: 03/16/19 Principal diagnosis: ESRD, schizophrenia, malnutrition, was of the opinion Interval history: No acute complaints overnight. Objective - Vital Signs Vital signs: Vital Signs - 12hr 03/16/19 03/16/19 03/16/19 06:09 06:14 09:27 Temperature 98.1 F 97.6 F Pulse Rate 87 98 H 108 H Respiratory 18 16 Rate Blood Pressure 130/87 103/69 156/93 O2 Sat by Pulse 100 95 Oximetry 03/16/19 11:20 Temperature 98.6 F Pulse Rate 107 H Respiratory 18 Rate Blood Pressure 120/85 O2 Sat by Pulse 99 Oximetry - General Appearance General appearance: well-nourished, appears stated age EENT: ATNC, PERRL Neck: no JVD, no thyromegaly Respiratory: Present: Clear to Ascultation Cardiology: regular, normal heart rate Gastrointestinal: normal, normoactive bowel sounds Integumentary: no rash Neurologic: no focal deficit Musculoskeletal: deferred Psychiatric: cooperative - Lab 03/11/19 04:34 03/11/19 04:34 Most recent lab results Calcium 9.4 mg/dL (8.4-10.2) 03/11/19 04:34 Phosphorus 5.00 mg/dL (2.5-4.5) H 03/08/19 07:49 Magnesium 2.00 mg/dL (1.7-2.3) 03/08/19 07:49 - Allied health notes Allied health notes reviewed: nursing Medications & Allergies - Medications Allergies/Adverse Reactions: Allergies No Known Allergies Allergy (Unverified 04/17/17 13:03) Home Medications: Home Medications Medication Instructions Recorded Confirmed Last Taken Type ARIPiprazole 5 mg PO QDAY #30 tablet 02/27/19 03/01/19 Unknown Rx Pantoprazole [Protonix TAB] 40 mg PO QDAY #30 tablet 02/27/19 03/01/19 Unknown Rx amLODIPine 10 mg PO QDAY #30 tablet 02/27/19 03/01/19 Unknown Rx hydrALAZINE [Apresoline TAB] 50 mg PO TID #90 tab 02/27/19 03/01/19 Unknown Rx Active Medications: Generic Name Dose Route Start Last Admin Trade Name Freq PRN Reason Stop Dose Admin Acetaminophen 650 mg 03/01/19 22:17 Tylenol PO Q4H PRN Pain MILD(1-3)/Fever >100.5/QUAN Amlodipine Besylate 10 mg 03/02/19 10:00 03/16/19 09:27 Amlodipine PO 10 mg QDAY ENOC Administration Aripiprazole 5 mg 03/02/19 10:00 03/16/19 09:27 Aripiprazole PO 5 mg QDAY ENOC Administration Enoxaparin Sodium 30 mg 03/02/19 10:00 03/16/19 09:27 Enoxaparin SUB-Q 30 mg QDAY ENOC Administration Epoetin Polo 10,000 unit 03/02/19 08:31 03/15/19 14:21 Procrit IV 10,000 unit LOKESH PRN Administration hemodialysis Heparin Sodium (Porcine) 1,000 unit 03/02/19 08:31 03/15/19 10:28 Heparin 10,000 Units/10 Ml IV 1,000 unit LOKESH PRN Administration hemodialysis Heparin Sodium (Porcine) 5,000 unit 03/02/19 08:31 03/15/19 14:21 Heparin IV 5,000 unit LOKESH PRN Administration hemodialysis Sodium Chloride 100 mls @ 999 mls/hr 03/10/19 08:08 Nacl 0.9% IV LOKESH PRN Hypotension Ondansetron HCl 4 mg 03/01/19 22:17 Zofran IV Q8H PRN Nausea And Vomiting Pantoprazole Sodium 40 mg 03/02/19 10:00 03/16/19 09:27 Protonix PO 40 mg QDAY ENOC Administration Sodium Chloride 10 ml 03/02/19 10:00 03/16/19 09:28 Sodium Chloride Flush Syringe 10 Ml IV 10 ml BID ENOC Administration Sodium Chloride 10 ml 03/01/19 22:17 Sodium Chloride Flush Syringe 10 Ml IV PRN PRN LINE FLUSH
--- NOTE | 2019-03-16 17:30 | Progress Note ---
Assessment and Plan Assessment and plan: Patient is 58-year-old man history of hypertension, schizophrenia, bipolar, subarachnoid hemorrhage, status post frontal craniotomy with aneurysmal clip, end-stage renal disease on dialysis was sent from [facility] because he did not have dialysis since he was discharged on Wednesday. He was discharged on Wednesday after prolonged stay. Was reported that he was denied by [facility] dialysis.he has no complaints, very poor historian. Patient is able to speak but often choses not to He previously was ambulatory but admitted last time with left sided weakness Patient stay was prolonged due to placement issues He remained clinically stable, was treated for seizures and placed on keppra, baclofen discontinued Bp meds were adjusted due hypotension He was discharged after a dialysis place was established but returns because the dialysis centers nuclear medicine medical director declined to now accept him Hydralazine stopped MIKEL on CKD 4 - vasomotor nephropathy versus progression of underlying chronic medical disease -Nephrology consulted -Avoid nephrotoxic agents -Renally dose all meds -Nephrology initiated hemdialysis on 12/6 H/O schizophrenia and bipolar - Abilify 5 mg PO daily, psych following -Hx Hypertension -BP uncontrolled. Continue to adjust medications as needed Hx Right subarachnoid hemorrhage, status post right frontal craniotomy Hx aneurysm, status post clipping -Continue supportive care -Neurology recommended outpatient follow Tobacco abuse -Current every day smoker -Counseled for cessation -Nicotine patch when necessary Moderate Protein Calorie Malnutrition Continue to encourage PO intake Thrombocytopenia. - cont to Monitor dvt/gi prophy Discharge once dialysis center obtained manager cosmetics is now arranging for placement at [facility]. History Interval history: Patient was seen and examined. Follow-up on current diagnosis of ESRD. Overnight uneventful as no events directly reported to me. Patient denies any chest pain, shortness breath, nausea/vomiting or severe headaches. Imaging, nursing note, chart, labs and old chart reviewed. Discussed with patient. Hospitalist Physical - Physical exam Narrative exam: Gen: thin frail NAD, Awake, Alert, Orientated x 2 HEENT: NCAT, EOMI, PERRL, OP Clear Neck: supple, no adenopathy, no thyromegaly, no JVD CVS/Heart: RRR, normal S1S2, pulses present bilaterally Chest/Lungs: CTA B, Symmetrical chest expansion, good air entry bilaterally GI/Abdomen: soft, NTND, good bowel sounds, no guarding or rebound /Bladder: no suprapubic tenderness, no CVA or paraspinal tenderness Extermity/Skin: no c/c/e, no obvious rash MSK: FROM x 4 Neuro: CN 2-12 grossly intact, no new focal deficits Psych: calm - Constitutional Vitals: Temp Pulse Resp BP Pulse Ox 98.6 F 107 H 18 120/85 99 03/16/19 11:20 03/16/19 11:20 03/16/19 11:20 03/16/19 11:20 03/16/19 11:20 Results - Labs CBC & Chem 7: 03/11/19 04:34 03/11/19 04:34 Labs: Laboratory Last Values WBC 7.2 K/mm3 (4.5-11.0) 03/11/19 04:34 RBC 3.63 M/mm3 (3.65-5.03) L 03/11/19 04:34 Hgb 10.2 gm/dl (11.8-15.2) L 03/11/19 04:34 Hct 32.0 % (35.5-45.6) L 03/11/19 04:34 MCV 88 fl (84-94) 03/11/19 04:34 MCH 28 pg (28-32) 03/11/19 04:34 MCHC 32 % (32-34) 03/11/19 04:34 RDW 13.3 % (13.2-15.2) 03/11/19 04:34 Plt Count 185 K/mm3 (140-440) 03/11/19 04:34 Lymph % (Auto) 19.0 % (13.4-35.0) 03/08/19 07:49 [place] % (Auto) 10.6 % (0.0-7.3) H 03/08/19 07:49 Eos % (Auto) 9.1 % (0.0-4.3) H 03/08/19 07:49 Baso % (Auto) 0.6 % (0.0-1.8) 03/08/19 07:49 Lymph # 1.3 K/mm3 (1.2-5.4) 03/08/19 07:49 [place] # 0.7 K/mm3 (0.0-0.8) 03/08/19 07:49 Eos # 0.6 K/mm3 (0.0-0.4) H 03/08/19 07:49 Baso # 0.0 K/mm3 (0.0-0.1) 03/08/19 07:49 Seg Neutrophils % 60.7 % (40.0-70.0) 03/08/19 07:49 Seg Neutrophils # 4.1 K/mm3 (1.8-7.7) 03/08/19 07:49 Sodium 138 mmol/L (137-145) 03/11/19 04:34 Potassium 4.1 mmol/L (3.6-5.0) 03/11/19 04:34 Chloride 98.4 mmol/L (98-107) 03/11/19 04:34 Carbon Dioxide 23 mmol/L (22-30) 03/11/19 04:34 Anion Gap 21 mmol/L 03/11/19 04:34 BUN 33 mg/dL (9-20) H 03/11/19 04:34 Creatinine 6.7 mg/dL (0.8-1.5) H 03/11/19 04:34 Estimated GFR 10 ml/min 03/11/19 04:34 BUN/Creatinine Ratio 5 % 03/11/19 04:34 Glucose 100 mg/dL (75-100) 03/11/19 04:34 POC Glucose 183 (70-105) H 03/15/19 11:20 Calcium 9.4 mg/dL (8.4-10.2) 03/11/19 04:34 Phosphorus 5.00 mg/dL (2.5-4.5) H 03/08/19 07:49 Magnesium 2.00 mg/dL (1.7-2.3) 03/08/19 07:49 Total Bilirubin 0.30 mg/dL (0.1-1.2) 03/08/19 07:49 AST 14 units/L (5-40) 03/08/19 07:49 ALT 10 units/L (7-56) 03/08/19 07:49 Alkaline Phosphatase 59 units/L (35-129) 03/08/19 07:49 Total Protein 7.1 g/dL (6.3-8.2) 03/08/19 07:49 Albumin 3.2 g/dL (3.9-5) L 03/08/19 07:49 Albumin/Globulin Ratio 0.8 % 03/08/19 07:49 Active Medications - Current Medications Current Medications: Generic Name Dose Route Start Last Admin Trade Name Freq PRN Reason Stop Dose Admin Acetaminophen 650 mg 03/01/19 22:17 Tylenol PO Q4H PRN Pain MILD(1-3)/Fever >100.5/QUAN Amlodipine Besylate 10 mg 03/02/19 10:00 03/16/19 09:27 Amlodipine PO 10 mg QDAY ENOC Administration Aripiprazole 5 mg 03/02/19 10:00 03/16/19 09:27 Aripiprazole PO 5 mg QDAY ENOC Administration Enoxaparin Sodium 30 mg 03/02/19 10:00 03/16/19 09:27 Enoxaparin SUB-Q 30 mg QDAY ENOC Administration Epoetin Polo 10,000 unit 03/02/19 08:31 03/15/19 14:21 Procrit IV 10,000 unit LOKESH PRN Administration hemodialysis Heparin Sodium (Porcine) 1,000 unit 03/02/19 08:31 03/15/19 10:28 Heparin 10,000 Units/10 Ml IV 1,000 unit LOKESH PRN Administration hemodialysis Heparin Sodium (Porcine) 5,000 unit 03/02/19 08:31 03/15/19 14:21 Heparin IV 5,000 unit LOKESH PRN Administration hemodialysis Sodium Chloride 100 mls @ 999 mls/hr 03/10/19 08:08 Nacl 0.9% IV LOKESH PRN Hypotension Ondansetron HCl 4 mg 03/01/19 22:17 Zofran IV Q8H PRN Nausea And Vomiting Pantoprazole Sodium 40 mg 03/02/19 10:00 03/16/19 09:27 Protonix PO 40 mg QDAY ENOC Administration Sodium Chloride 10 ml 03/02/19 10:00 03/16/19 09:28 Sodium Chloride Flush Syringe 10 Ml IV 10 ml BID ENOC Administration Sodium Chloride 10 ml 03/01/19 22:17 Sodium Chloride Flush Syringe 10 Ml IV PRN PRN LINE FLUSH Nutrition/Malnutrition Assess - Dietary Evaluation Nutrition/Malnutrition Findings: Nutrition Notes Start: 03/02/19 09:43 Freq: Status: Active Protocol: Document 03/13/19 14:17 LP (Rec: 03/13/19 14:18 LP [id number]) Nutrition Notes Initial or Follow up Reassessment Current Diagnosis CKD (stage V CKD),Hypertension Other Pertinent Diagnosis hematochezia Current Diet renal diet with Nepro BID Labs/Tests Reviewed Pertinent Medications Reviewed Height 5 ft 6 in Weight 57.4 kg [place] Body Weight (kg) 64.54 BMI 20.4 Weight Status Appropriate Subjective/Other Information Pt ccontinues eating well 75- 100% of meals recorded. Drinking supplements. Percent of energy/protein needs met: 100%/100% Burn Absent Trauma Absent GI Symptoms None Food Allergy No Current % PO Good (75-100%) Minimum of two criteria Yes Interpretation of Weight Loss (severe) >2% in 1 week Muscle Mass Mild Depletion (non-severe) #1 Nutrition Diagnosis Malnutrition Diagnosis Progress(for reassessment Continues documentation) Is patient on ventilator? No Is Patient Ambulatory and/or Out of Bed No REE-([facility]-confined to bed) 1603.080 Calculation Used for Recommendations [facility][1] Additional Notes Protein needs: >67 g (>1.2g/ kg) Fluid needs: 1000 - 1500 mL Nutrition Intervention Change Diet Order: continue renal diet Add Supplement/Snack (indicate name/kcal Nepro BID /protein ) Provides kCal: 850 Provides Protein (gm) 38 Goal #1 continue to meet at least 80% of dietary needs Anticipated Discharge Needs: Renal diet, w/ Nepro Supplement BID Follow-Up By: 03/20/19 Additional Comments Follow for stable intakes
--- NOTE | 2019-03-17 13:26 | Progress Note ---
Assessment and Plan - Patient Problems (1) End-stage renal disease needing dialysis Current Visit: Yes Status: Chronic Plan to address problem: Continue on TTS inpatient HD schedule. Awaiting outpatient HD placement. (2) Hypertension associated with stage 5 chronic kidney disease due to type 2 diabetes mellitus Current Visit: Yes Status: Chronic Plan to address problem: Monitor blood pressures with current regimen, (3) Anemia in end-stage renal disease Current Visit: Yes Status: Chronic Plan to address problem: TWAN therapy with HD. (4) Schizoaffective disorder Current Visit: Yes Status: Chronic Plan to address problem: Management per psychiatry recommendations. Subjective Date of service: 03/17/19 Principal diagnosis: ESRD, schizophrenia, malnutrition, was of the opinion Interval history: No acute changes overnight. Objective - Vital Signs Vital signs: Vital Signs - 12hr 03/17/19 05:58 Temperature 98.2 F Pulse Rate 101 H Respiratory 20 Rate Blood Pressure 134/99 O2 Sat by Pulse 99 Oximetry - General Appearance General appearance: well-developed, well-nourished, appears stated age EENT: ATNC, PERRL Neck: no JVD, no thyromegaly Respiratory: Present: Clear to Ascultation, Normal Exam Cardiology: regular, S1S2 Gastrointestinal: normal, normoactive bowel sounds Integumentary: no rash, warm and dry Neurologic: no focal deficit, alert and oriented x3 Musculoskeletal: deferred Psychiatric: mood/affect appropriate - Lab 03/11/19 04:34 03/11/19 04:34 Most recent lab results Calcium 9.4 mg/dL (8.4-10.2) 03/11/19 04:34 Phosphorus 5.00 mg/dL (2.5-4.5) H 03/08/19 07:49 Magnesium 2.00 mg/dL (1.7-2.3) 03/08/19 07:49 - Allied health notes Allied health notes reviewed: nursing Medications & Allergies - Medications Allergies/Adverse Reactions: Allergies No Known Allergies Allergy (Unverified 04/17/17 13:03) Home Medications: Home Medications Medication Instructions Recorded Confirmed Last Taken Type ARIPiprazole 5 mg PO QDAY #30 tablet 02/27/19 03/01/19 Unknown Rx Pantoprazole [Protonix TAB] 40 mg PO QDAY #30 tablet 02/27/19 03/01/19 Unknown Rx amLODIPine 10 mg PO QDAY #30 tablet 02/27/19 03/01/19 Unknown Rx hydrALAZINE [Apresoline TAB] 50 mg PO TID #90 tab 02/27/19 03/01/19 Unknown Rx Active Medications: Generic Name Dose Route Start Last Admin Trade Name Freq PRN Reason Stop Dose Admin Acetaminophen 650 mg 03/01/19 22:17 Tylenol PO Q4H PRN Pain MILD(1-3)/Fever >100.5/QUAN Amlodipine Besylate 10 mg 03/02/19 10:00 03/16/19 09:27 Amlodipine PO 10 mg QDAY ENOC Administration Aripiprazole 5 mg 03/02/19 10:00 03/16/19 09:27 Aripiprazole PO 5 mg QDAY ENOC Administration Enoxaparin Sodium 30 mg 03/02/19 10:00 03/16/19 09:27 Enoxaparin SUB-Q 30 mg QDAY ENOC Administration Epoetin Polo 10,000 unit 03/02/19 08:31 03/15/19 14:21 Procrit IV 10,000 unit LOKESH PRN Administration hemodialysis Heparin Sodium (Porcine) 1,000 unit 03/02/19 08:31 03/15/19 10:28 Heparin 10,000 Units/10 Ml IV 1,000 unit LOKESH PRN Administration hemodialysis Heparin Sodium (Porcine) 5,000 unit 03/02/19 08:31 03/15/19 14:21 Heparin IV 5,000 unit LOKESH PRN Administration hemodialysis Sodium Chloride 100 mls @ 999 mls/hr 03/10/19 08:08 Nacl 0.9% IV LOKESH PRN Hypotension Ondansetron HCl 4 mg 03/01/19 22:17 Zofran IV Q8H PRN Nausea And Vomiting Pantoprazole Sodium 40 mg 03/02/19 10:00 03/16/19 09:27 Protonix PO 40 mg QDAY ENOC Administration Sodium Chloride 10 ml 03/02/19 10:00 03/16/19 09:28 Sodium Chloride Flush Syringe 10 Ml IV 10 ml BID ENOC Administration Sodium Chloride 10 ml 03/01/19 22:17 Sodium Chloride Flush Syringe 10 Ml IV PRN PRN LINE FLUSH
--- NOTE | 2019-03-17 13:41 | Progress Note ---
Assessment and Plan Assessment and plan: Patient is 58-year-old man history of hypertension, schizophrenia, bipolar, subarachnoid hemorrhage, status post frontal craniotomy with aneurysmal clip, end-stage renal disease on dialysis was sent from [facility] because he did not have dialysis since he was discharged on Wednesday. He was discharged on Wednesday after prolonged stay. Was reported that he was denied by [facility] dialysis.he has no complaints, very poor historian. Patient is able to speak but often choses not to He previously was ambulatory but admitted last time with left sided weakness Patient stay was prolonged due to placement issues He remained clinically stable, was treated for seizures and placed on keppra, baclofen discontinued Bp meds were adjusted due hypotension He was discharged after a dialysis place was established but returns because the dialysis centers medical claims analyst declined to now accept him Hydralazine stopped MIKEL on CKD 4 - vasomotor nephropathy versus progression of underlying chronic medical disease -Nephrology consulted -Avoid nephrotoxic agents -Renally dose all meds -Nephrology initiated hemdialysis on 12/6 H/O schizophrenia and bipolar - Abilify 5 mg PO daily, psych following -Hx Hypertension -BP uncontrolled. Continue to adjust medications as needed Hx Right subarachnoid hemorrhage, status post right frontal craniotomy Hx aneurysm, status post clipping -Continue supportive care -Neurology recommended outpatient follow Tobacco abuse -Current every day smoker -Counseled for cessation -Nicotine patch when necessary Moderate Protein Calorie Malnutrition Continue to encourage PO intake Thrombocytopenia. - cont to Monitor dvt/gi prophy Discharge once dialysis center obtained manager pet is now arranging for placement at [facility]. History Interval history: Patient was seen and examined. Follow-up on current diagnosis of ESRD. Overnight uneventful as no events directly reported to me. Patient denies any chest pain, shortness breath, nausea/vomiting or severe headaches. Imaging, nursing note, chart, labs and old chart reviewed. Discussed with patient. Hospitalist Physical - Physical exam Narrative exam: Gen: thin frail NAD, Awake, Alert, Orientated x 2 HEENT: NCAT, EOMI, PERRL, OP Clear Neck: supple, no adenopathy, no thyromegaly, no JVD CVS/Heart: RRR, normal S1S2, pulses present bilaterally Chest/Lungs: CTA B, Symmetrical chest expansion, good air entry bilaterally GI/Abdomen: soft, NTND, good bowel sounds, no guarding or rebound /Bladder: no suprapubic tenderness, no CVA or paraspinal tenderness Extermity/Skin: no c/c/e, no obvious rash MSK: FROM x 4 Neuro: CN 2-12 grossly intact, no new focal deficits Psych: calm - Constitutional Vitals: Temp Pulse Resp BP Pulse Ox 98.2 F 107 H 20 140/88 99 03/17/19 12:00 03/17/19 12:00 03/17/19 12:00 03/17/19 12:00 03/17/19 05:58 Results - Labs CBC & Chem 7: 03/11/19 04:34 03/11/19 04:34 Labs: Laboratory Last Values WBC 7.2 K/mm3 (4.5-11.0) 03/11/19 04:34 RBC 3.63 M/mm3 (3.65-5.03) L 03/11/19 04:34 Hgb 10.2 gm/dl (11.8-15.2) L 03/11/19 04:34 Hct 32.0 % (35.5-45.6) L 03/11/19 04:34 MCV 88 fl (84-94) 03/11/19 04:34 MCH 28 pg (28-32) 03/11/19 04:34 MCHC 32 % (32-34) 03/11/19 04:34 RDW 13.3 % (13.2-15.2) 03/11/19 04:34 Plt Count 185 K/mm3 (140-440) 03/11/19 04:34 Lymph % (Auto) 19.0 % (13.4-35.0) 03/08/19 07:49 [place] % (Auto) 10.6 % (0.0-7.3) H 03/08/19 07:49 Eos % (Auto) 9.1 % (0.0-4.3) H 03/08/19 07:49 Baso % (Auto) 0.6 % (0.0-1.8) 03/08/19 07:49 Lymph # 1.3 K/mm3 (1.2-5.4) 03/08/19 07:49 [place] # 0.7 K/mm3 (0.0-0.8) 03/08/19 07:49 Eos # 0.6 K/mm3 (0.0-0.4) H 03/08/19 07:49 Baso # 0.0 K/mm3 (0.0-0.1) 03/08/19 07:49 Seg Neutrophils % 60.7 % (40.0-70.0) 03/08/19 07:49 Seg Neutrophils # 4.1 K/mm3 (1.8-7.7) 03/08/19 07:49 Sodium 138 mmol/L (137-145) 03/11/19 04:34 Potassium 4.1 mmol/L (3.6-5.0) 03/11/19 04:34 Chloride 98.4 mmol/L (98-107) 03/11/19 04:34 Carbon Dioxide 23 mmol/L (22-30) 03/11/19 04:34 Anion Gap 21 mmol/L 03/11/19 04:34 BUN 33 mg/dL (9-20) H 03/11/19 04:34 Creatinine 6.7 mg/dL (0.8-1.5) H 03/11/19 04:34 Estimated GFR 10 ml/min 03/11/19 04:34 BUN/Creatinine Ratio 5 % 03/11/19 04:34 Glucose 100 mg/dL (75-100) 03/11/19 04:34 POC Glucose 183 (70-105) H 03/15/19 11:20 Calcium 9.4 mg/dL (8.4-10.2) 03/11/19 04:34 Phosphorus 5.00 mg/dL (2.5-4.5) H 03/08/19 07:49 Magnesium 2.00 mg/dL (1.7-2.3) 03/08/19 07:49 Total Bilirubin 0.30 mg/dL (0.1-1.2) 03/08/19 07:49 AST 14 units/L (5-40) 03/08/19 07:49 ALT 10 units/L (7-56) 03/08/19 07:49 Alkaline Phosphatase 59 units/L (35-129) 03/08/19 07:49 Total Protein 7.1 g/dL (6.3-8.2) 03/08/19 07:49 Albumin 3.2 g/dL (3.9-5) L 03/08/19 07:49 Albumin/Globulin Ratio 0.8 % 03/08/19 07:49 Active Medications - Current Medications Current Medications: Generic Name Dose Route Start Last Admin Trade Name Freq PRN Reason Stop Dose Admin Acetaminophen 650 mg 03/01/19 22:17 Tylenol PO Q4H PRN Pain MILD(1-3)/Fever >100.5/QUAN Amlodipine Besylate 10 mg 03/02/19 10:00 03/16/19 09:27 Amlodipine PO 10 mg QDAY ENOC Administration Aripiprazole 5 mg 03/02/19 10:00 03/16/19 09:27 Aripiprazole PO 5 mg QDAY ENOC Administration Enoxaparin Sodium 30 mg 03/02/19 10:00 03/16/19 09:27 Enoxaparin SUB-Q 30 mg QDAY ENOC Administration Epoetin Polo 10,000 unit 03/02/19 08:31 03/15/19 14:21 Procrit IV 10,000 unit LOKESH PRN Administration hemodialysis Heparin Sodium (Porcine) 1,000 unit 03/02/19 08:31 03/15/19 10:28 Heparin 10,000 Units/10 Ml IV 1,000 unit LOKESH PRN Administration hemodialysis Heparin Sodium (Porcine) 5,000 unit 03/02/19 08:31 03/15/19 14:21 Heparin IV 5,000 unit LOKESH PRN Administration hemodialysis Sodium Chloride 100 mls @ 999 mls/hr 03/10/19 08:08 Nacl 0.9% IV LOKESH PRN Hypotension Ondansetron HCl 4 mg 03/01/19 22:17 Zofran IV Q8H PRN Nausea And Vomiting Pantoprazole Sodium 40 mg 03/02/19 10:00 03/16/19 09:27 Protonix PO 40 mg QDAY ENOC Administration Sodium Chloride 10 ml 03/02/19 10:00 03/16/19 09:28 Sodium Chloride Flush Syringe 10 Ml IV 10 ml BID ENOC Administration Sodium Chloride 10 ml 03/01/19 22:17 Sodium Chloride Flush Syringe 10 Ml IV PRN PRN LINE FLUSH Nutrition/Malnutrition Assess - Dietary Evaluation Nutrition/Malnutrition Findings: Nutrition Notes Start: 03/02/19 09:43 Freq: Status: Active Protocol: Document 03/13/19 14:17 LP (Rec: 03/13/19 14:18 LP [id number]) Nutrition Notes Initial or Follow up Reassessment Current Diagnosis CKD (stage V CKD),Hypertension Other Pertinent Diagnosis hematochezia Current Diet renal diet with Nepro BID Labs/Tests Reviewed Pertinent Medications Reviewed Height 5 ft 6 in Weight 57.4 kg [place] Body Weight (kg) 64.54 BMI 20.4 Weight Status Appropriate Subjective/Other Information Pt ccontinues eating well 75- 100% of meals recorded. Drinking supplements. Percent of energy/protein needs met: 100%/100% Burn Absent Trauma Absent GI Symptoms None Food Allergy No Current % PO Good (75-100%) Minimum of two criteria Yes Interpretation of Weight Loss (severe) >2% in 1 week Muscle Mass Mild Depletion (non-severe) #1 Nutrition Diagnosis Malnutrition Diagnosis Progress(for reassessment Continues documentation) Is patient on ventilator? No Is Patient Ambulatory and/or Out of Bed No REE-([facility]-confined to bed) 1603.080 Calculation Used for Recommendations [facility] Additional Notes Protein needs: >67 g (>1.2g/ kg) Fluid needs: 1000 - 1500 mL Nutrition Intervention Change Diet Order: continue renal diet Add Supplement/Snack (indicate name/kcal Nepro BID /protein ) Provides kCal: 850 Provides Protein (gm) 38 Goal #1 continue to meet at least 80% of dietary needs Anticipated Discharge Needs: Renal diet, w/ Nepro Supplement BID Follow-Up By: 03/20/19 Additional Comments Follow for stable intakes
[2019-03-17] MEDS: ENOXAPARIN 30 MG/0.3 ML INJ SUB-Q SCH (14:54)
[2019-03-17] MEDS: amLODIPine 10 MG TAB PO SCH (14:54)
[2019-03-17] MEDS: ARIPiprazole 5 MG TAB PO SCH (14:54)
[2019-03-17] MEDS: PANTOPRAZOLE 40 MG TAB PO SCH (14:54)
[2019-03-18] MEDS: ARIPiprazole 5 MG TAB PO SCH (09:33)
[2019-03-18] MEDS: ENOXAPARIN 30 MG/0.3 ML INJ SUB-Q SCH (09:33)
[2019-03-18] MEDS: PANTOPRAZOLE 40 MG TAB PO SCH (09:34)
[2019-03-18] MEDS: amLODIPine 10 MG TAB PO SCH (09:34)
--- NOTE | 2019-03-18 13:33 | Progress Note ---
Assessment and Plan - Patient Problems (1) End-stage renal disease needing dialysis Current Visit: Yes Status: Chronic Plan to address problem: Continue HD on TTS schedule. outpatient HD arrangement as per case management . (2) Hypertension associated with stage 5 chronic kidney disease due to type 2 diabetes mellitus Current Visit: Yes Status: Chronic Plan to address problem: Follow-up blood pressure on current medications (3) Anemia Current Visit: No Status: Acute Plan to address problem: cont EPO with HD (4) Schizoaffective disorder Current Visit: No Status: Chronic Plan to address problem: follow psychiatry recommendations Subjective Date of service: 03/18/19 Principal diagnosis: ESRD, schizophrenia, malnutrition, was of the opinion Interval history: pt awake, alert in no acute distress. Objective - Vital Signs Vital signs: Vital Signs - 12hr 03/18/19 03/18/19 05:05 12:03 Temperature 98.4 F 97.9 F Pulse Rate 96 H 101 H Respiratory 18 14 Rate Blood Pressure 114/82 126/93 O2 Sat by Pulse 100 100 Oximetry - General Appearance General appearance: well-developed, well-nourished, appears stated age EENT: ATNC, PERRL, mucous membranes moist Neck: no JVD Respiratory: Present: Clear to Ascultation Cardiology: regular, S1S2 Gastrointestinal: normoactive bowel sounds Integumentary: no rash, other (no edema ) Neurologic: no focal deficit, alert and oriented x3, strength 5/5, CN 3-12 intact Psychiatric: mood/affect appropriate, cooperative - Lab 03/11/19 04:34 03/11/19 04:34 Most recent lab results Calcium 9.4 mg/dL (8.4-10.2) 03/11/19 04:34 Phosphorus 5.00 mg/dL (2.5-4.5) H 03/08/19 07:49 Magnesium 2.00 mg/dL (1.7-2.3) 03/08/19 07:49 Medications & Allergies - Medications Allergies/Adverse Reactions: Allergies No Known Allergies Allergy (Unverified 04/17/17 13:03) Home Medications: Home Medications Medication Instructions Recorded Confirmed Last Taken Type ARIPiprazole 5 mg PO QDAY #30 tablet 02/27/19 03/01/19 Unknown Rx Pantoprazole [Protonix TAB] 40 mg PO QDAY #30 tablet 02/27/19 03/01/19 Unknown Rx amLODIPine 10 mg PO QDAY #30 tablet 02/27/19 03/01/19 Unknown Rx hydrALAZINE [Apresoline TAB] 50 mg PO TID #90 tab 02/27/19 03/01/19 Unknown Rx Active Medications: Generic Name Dose Route Start Last Admin Trade Name Freq PRN Reason Stop Dose Admin Acetaminophen 650 mg 03/01/19 22:17 Tylenol PO Q4H PRN Pain MILD(1-3)/Fever >100.5/QUAN Amlodipine Besylate 10 mg 03/02/19 10:00 03/18/19 09:34 Amlodipine PO 10 mg QDAY ENOC Administration Aripiprazole 5 mg 03/02/19 10:00 03/18/19 09:33 Aripiprazole PO 5 mg QDAY ENOC Administration Enoxaparin Sodium 30 mg 03/02/19 10:00 03/18/19 09:33 Enoxaparin SUB-Q 30 mg QDAY ENOC Administration Epoetin Polo 10,000 unit 03/02/19 08:31 03/15/19 14:21 Procrit IV 10,000 unit LOKESH PRN Administration hemodialysis Heparin Sodium (Porcine) 1,000 unit 03/02/19 08:31 03/15/19 10:28 Heparin 10,000 Units/10 Ml IV 1,000 unit LOKESH PRN Administration hemodialysis Heparin Sodium (Porcine) 5,000 unit 03/02/19 08:31 03/15/19 14:21 Heparin IV 5,000 unit LOKESH PRN Administration hemodialysis Sodium Chloride 100 mls @ 999 mls/hr 03/10/19 08:08 Nacl 0.9% IV LOKESH PRN Hypotension Ondansetron HCl 4 mg 03/01/19 22:17 Zofran IV Q8H PRN Nausea And Vomiting Pantoprazole Sodium 40 mg 03/02/19 10:00 03/18/19 09:34 Protonix PO 40 mg QDAY ENOC Administration Sodium Chloride 10 ml 03/02/19 10:00 03/18/19 09:35 Sodium Chloride Flush Syringe 10 Ml IV 10 ml BID ENOC Administration Sodium Chloride 10 ml 03/01/19 22:17 Sodium Chloride Flush Syringe 10 Ml IV PRN PRN LINE FLUSH
--- NOTE | 2019-03-18 14:55 | Progress Note ---
Assessment and Plan Assessment and plan: Patient is 58-year-old man history of hypertension, schizophrenia, bipolar, subarachnoid hemorrhage, status post frontal craniotomy with aneurysmal clip, end-stage renal disease on dialysis was sent from [facility] because he did not have dialysis since he was discharged on Wednesday. He was discharged on Wednesday after prolonged stay. Was reported that he was denied by [facility] dialysis.he has no complaints, very poor historian. Patient is able to speak but often choses not to He previously was ambulatory but admitted last time with left sided weakness Patient stay was prolonged due to placement issues He remained clinically stable, was treated for seizures and placed on keppra, baclofen discontinued Bp meds were adjusted due hypotension He was discharged after a dialysis place was established but returns because the dialysis centers medical laboratory technician declined to now accept him Hydralazine stopped MIKEL on CKD 4 - vasomotor nephropathy versus progression of underlying chronic medical disease -Nephrology consulted -Avoid nephrotoxic agents -Renally dose all meds -Nephrology initiated hemdialysis on 12/6 H/O schizophrenia and bipolar - Abilify 5 mg PO daily, psych following -Hx Hypertension -BP uncontrolled. Continue to adjust medications as needed Hx Right subarachnoid hemorrhage, status post right frontal craniotomy Hx aneurysm, status post clipping -Continue supportive care -Neurology recommended outpatient follow Tobacco abuse -Current every day smoker -Counseled for cessation -Nicotine patch when necessary Moderate Protein Calorie Malnutrition Continue to encourage PO intake Thrombocytopenia. - cont to Monitor dvt/gi prophy Discharge once dialysis center obtained ultrasound manager is now arranging for placement at [facility]. History Interval history: Patient was seen and examined. Follow-up on current diagnosis of ESRD. Overnight uneventful as no events directly reported to me. Patient denies any chest pain, shortness breath, nausea/vomiting or severe headaches. Imaging, nursing note, chart, labs and old chart reviewed. Discussed with patient. Hospitalist Physical - Physical exam Narrative exam: Gen: thin frail NAD, Awake, Alert, Orientated x 2 HEENT: old right skull deformity, EOMI, PERRL, OP Clear Neck: supple, no adenopathy, no thyromegaly, no JVD CVS/Heart: RRR, normal S1S2, pulses present bilaterally Chest/Lungs: CTA B, Symmetrical chest expansion, good air entry bilaterally GI/Abdomen: soft, NTND, good bowel sounds, no guarding or rebound /Bladder: no suprapubic tenderness, no CVA or paraspinal tenderness Extermity/Skin: no c/c/e, no obvious rash MSK: FROM x 4 Neuro: CN 2-12 grossly intact, no new focal deficits Psych: calm - Constitutional Vitals: Temp Pulse Resp BP Pulse Ox 97.9 F 101 H 14 126/93 100 03/18/19 12:03 03/18/19 12:03 03/18/19 12:03 03/18/19 12:03 03/18/19 12:03 Results - Labs CBC & Chem 7: 03/11/19 04:34 03/11/19 04:34 Labs: Laboratory Last Values WBC 7.2 K/mm3 (4.5-11.0) 03/11/19 04:34 RBC 3.63 M/mm3 (3.65-5.03) L 03/11/19 04:34 Hgb 10.2 gm/dl (11.8-15.2) L 03/11/19 04:34 Hct 32.0 % (35.5-45.6) L 03/11/19 04:34 MCV 88 fl (84-94) 03/11/19 04:34 MCH 28 pg (28-32) 03/11/19 04:34 MCHC 32 % (32-34) 03/11/19 04:34 RDW 13.3 % (13.2-15.2) 03/11/19 04:34 Plt Count 185 K/mm3 (140-440) 03/11/19 04:34 Lymph % (Auto) 19.0 % (13.4-35.0) 03/08/19 07:49 [place] % (Auto) 10.6 % (0.0-7.3) H 03/08/19 07:49 Eos % (Auto) 9.1 % (0.0-4.3) H 03/08/19 07:49 Baso % (Auto) 0.6 % (0.0-1.8) 03/08/19 07:49 Lymph # 1.3 K/mm3 (1.2-5.4) 03/08/19 07:49 [place] # 0.7 K/mm3 (0.0-0.8) 03/08/19 07:49 Eos # 0.6 K/mm3 (0.0-0.4) H 03/08/19 07:49 Baso # 0.0 K/mm3 (0.0-0.1) 03/08/19 07:49 Seg Neutrophils % 60.7 % (40.0-70.0) 03/08/19 07:49 Seg Neutrophils # 4.1 K/mm3 (1.8-7.7) 03/08/19 07:49 Sodium 138 mmol/L (137-145) 03/11/19 04:34 Potassium 4.1 mmol/L (3.6-5.0) 03/11/19 04:34 Chloride 98.4 mmol/L (98-107) 03/11/19 04:34 Carbon Dioxide 23 mmol/L (22-30) 03/11/19 04:34 Anion Gap 21 mmol/L 03/11/19 04:34 BUN 33 mg/dL (9-20) H 03/11/19 04:34 Creatinine 6.7 mg/dL (0.8-1.5) H 03/11/19 04:34 Estimated GFR 10 ml/min 03/11/19 04:34 BUN/Creatinine Ratio 5 % 03/11/19 04:34 Glucose 100 mg/dL (75-100) 03/11/19 04:34 POC Glucose 183 (70-105) H 03/15/19 11:20 Calcium 9.4 mg/dL (8.4-10.2) 03/11/19 04:34 Phosphorus 5.00 mg/dL (2.5-4.5) H 03/08/19 07:49 Magnesium 2.00 mg/dL (1.7-2.3) 03/08/19 07:49 Total Bilirubin 0.30 mg/dL (0.1-1.2) 03/08/19 07:49 AST 14 units/L (5-40) 03/08/19 07:49 ALT 10 units/L (7-56) 03/08/19 07:49 Alkaline Phosphatase 59 units/L (35-129) 03/08/19 07:49 Total Protein 7.1 g/dL (6.3-8.2) 03/08/19 07:49 Albumin 3.2 g/dL (3.9-5) L 03/08/19 07:49 Albumin/Globulin Ratio 0.8 % 03/08/19 07:49 Active Medications - Current Medications Current Medications: Generic Name Dose Route Start Last Admin Trade Name Freq PRN Reason Stop Dose Admin Acetaminophen 650 mg 03/01/19 22:17 Tylenol PO Q4H PRN Pain MILD(1-3)/Fever >100.5/QUAN Amlodipine Besylate 10 mg 03/02/19 10:00 03/18/19 09:34 Amlodipine PO 10 mg QDAY ENOC Administration Aripiprazole 5 mg 03/02/19 10:00 03/18/19 09:33 Aripiprazole PO 5 mg QDAY ENOC Administration Enoxaparin Sodium 30 mg 03/02/19 10:00 03/18/19 09:33 Enoxaparin SUB-Q 30 mg QDAY ENOC Administration Epoetin Polo 10,000 unit 03/02/19 08:31 03/15/19 14:21 Procrit IV 10,000 unit LOKESH PRN Administration hemodialysis Heparin Sodium (Porcine) 1,000 unit 03/02/19 08:31 03/15/19 10:28 Heparin 10,000 Units/10 Ml IV 1,000 unit LOKESH PRN Administration hemodialysis Heparin Sodium (Porcine) 5,000 unit 03/02/19 08:31 03/15/19 14:21 Heparin IV 5,000 unit LOKESH PRN Administration hemodialysis Sodium Chloride 100 mls @ 999 mls/hr 03/10/19 08:08 Nacl 0.9% IV LOKESH PRN Hypotension Ondansetron HCl 4 mg 03/01/19 22:17 Zofran IV Q8H PRN Nausea And Vomiting Pantoprazole Sodium 40 mg 03/02/19 10:00 03/18/19 09:34 Protonix PO 40 mg QDAY ENOC Administration Sodium Chloride 10 ml 03/02/19 10:00 03/18/19 09:35 Sodium Chloride Flush Syringe 10 Ml IV 10 ml BID ENOC Administration Sodium Chloride 10 ml 03/01/19 22:17 Sodium Chloride Flush Syringe 10 Ml IV PRN PRN LINE FLUSH Nutrition/Malnutrition Assess - Dietary Evaluation Nutrition/Malnutrition Findings: Nutrition Notes Start: 03/02/19 09:43 Freq: Status: Active Protocol: Document 03/13/19 14:17 LP (Rec: 03/13/19 14:18 LP [id number]) Nutrition Notes Initial or Follow up Reassessment Current Diagnosis CKD (stage V CKD),Hypertension Other Pertinent Diagnosis hematochezia Current Diet renal diet with Nepro BID Labs/Tests Reviewed Pertinent Medications Reviewed Height 5 ft 6 in Weight 57.4 kg [place] Body Weight (kg) 64.54 BMI 20.4 Weight Status Appropriate Subjective/Other Information Pt ccontinues eating well 75- 100% of meals recorded. Drinking supplements. Percent of energy/protein needs met: 100%/100% Burn Absent Trauma Absent GI Symptoms None Food Allergy No Current % PO Good (75-100%) Minimum of two criteria Yes Interpretation of Weight Loss (severe) >2% in 1 week Muscle Mass Mild Depletion (non-severe) #1 Nutrition Diagnosis Malnutrition Diagnosis Progress(for reassessment Continues documentation) Is patient on ventilator? No Is Patient Ambulatory and/or Out of Bed No REE-([facility]-confined to bed) 1603.080 Calculation Used for Recommendations [facility] Additional Notes Protein needs: >67 g (>1.2g/ kg) Fluid needs: 1000 - 1500 mL Nutrition Intervention Change Diet Order: continue renal diet Add Supplement/Snack (indicate name/kcal Nepro BID /protein ) Provides kCal: 850 Provides Protein (gm) 38 Goal #1 continue to meet at least 80% of dietary needs Anticipated Discharge Needs: Renal diet, w/ Nepro Supplement BID Follow-Up By: 03/20/19 Additional Comments Follow for stable intakes
[2019-03-19] MEDS: amLODIPine 10 MG TAB PO SCH (09:35)
[2019-03-19] MEDS: PANTOPRAZOLE 40 MG TAB PO SCH (09:35)
[2019-03-19] MEDS: ENOXAPARIN 30 MG/0.3 ML INJ SUB-Q SCH (09:35)
[2019-03-19] MEDS: ARIPiprazole 5 MG TAB PO SCH (09:35)
--- NOTE | 2019-03-19 14:16 | Progress Note ---
Assessment and Plan - Patient Problems (1) End-stage renal disease needing dialysis Current Visit: Yes Status: Chronic Plan to address problem: Continue HD on TTS schedule. outpatient HD arrangement as per case management . (2) Hypertension associated with stage 5 chronic kidney disease due to type 2 diabetes mellitus Current Visit: Yes Status: Chronic Plan to address problem: Follow-up blood pressure on current medications (3) Anemia Current Visit: No Status: Acute Plan to address problem: cont EPO with HD (4) Schizoaffective disorder Current Visit: No Status: Chronic Plan to address problem: follow psychiatry recommendations Subjective Date of service: 03/19/19 Principal diagnosis: ESRD, schizophrenia, malnutrition, was of the opinion Interval history: pt awake, alert in no acute distress. Objective - Vital Signs Vital signs: Vital Signs - 12hr 03/19/19 03/19/19 05:02 12:07 Temperature 32.1 F L 97.9 F Pulse Rate 93 H 89 Respiratory 20 14 Rate Blood Pressure 136/99 114/94 O2 Sat by Pulse 100 100 Oximetry - General Appearance General appearance: well-developed, well-nourished, appears stated age EENT: ATNC, PERRL, mucous membranes moist Neck: no JVD Respiratory: Present: Clear to Ascultation Cardiology: regular, S1S2 Gastrointestinal: normoactive bowel sounds Integumentary: no rash, other (no edema ) Neurologic: no focal deficit, alert and oriented x3, strength 5/5, CN 3-12 intact Psychiatric: mood/affect appropriate, cooperative - Lab 03/11/19 04:34 03/11/19 04:34 Most recent lab results Calcium 9.4 mg/dL (8.4-10.2) 03/11/19 04:34 Phosphorus 5.00 mg/dL (2.5-4.5) H 03/08/19 07:49 Magnesium 2.00 mg/dL (1.7-2.3) 03/08/19 07:49 Medications & Allergies - Medications Allergies/Adverse Reactions: Allergies No Known Allergies Allergy (Unverified 04/17/17 13:03) Home Medications: Home Medications Medication Instructions Recorded Confirmed Last Taken Type ARIPiprazole 5 mg PO QDAY #30 tablet 02/27/19 03/01/19 Unknown Rx Pantoprazole [Protonix TAB] 40 mg PO QDAY #30 tablet 02/27/19 03/01/19 Unknown Rx amLODIPine 10 mg PO QDAY #30 tablet 02/27/19 03/01/19 Unknown Rx hydrALAZINE [Apresoline TAB] 50 mg PO TID #90 tab 02/27/19 03/01/19 Unknown Rx Active Medications: Generic Name Dose Route Start Last Admin Trade Name Freq PRN Reason Stop Dose Admin Acetaminophen 650 mg 03/01/19 22:17 Tylenol PO Q4H PRN Pain MILD(1-3)/Fever >100.5/QUAN Amlodipine Besylate 10 mg 03/02/19 10:00 03/19/19 09:35 Amlodipine PO 10 mg QDAY ENOC Administration Aripiprazole 5 mg 03/02/19 10:00 03/19/19 09:35 Aripiprazole PO 5 mg QDAY ENOC Administration Enoxaparin Sodium 30 mg 03/02/19 10:00 03/19/19 09:35 Enoxaparin SUB-Q 30 mg QDAY ENOC Administration Epoetin Polo 10,000 unit 03/02/19 08:31 03/15/19 14:21 Procrit IV 10,000 unit LOKESH PRN Administration hemodialysis Heparin Sodium (Porcine) 1,000 unit 03/02/19 08:31 03/15/19 10:28 Heparin 10,000 Units/10 Ml IV 1,000 unit LOKESH PRN Administration hemodialysis Heparin Sodium (Porcine) 5,000 unit 03/02/19 08:31 03/15/19 14:21 Heparin IV 5,000 unit LOKESH PRN Administration hemodialysis Sodium Chloride 100 mls @ 999 mls/hr 03/10/19 08:08 Nacl 0.9% IV LOKESH PRN Hypotension Ondansetron HCl 4 mg 03/01/19 22:17 Zofran IV Q8H PRN Nausea And Vomiting Pantoprazole Sodium 40 mg 03/02/19 10:00 03/19/19 09:35 Protonix PO 40 mg QDAY ENOC Administration Sodium Chloride 10 ml 03/02/19 10:00 03/19/19 09:35 Sodium Chloride Flush Syringe 10 Ml IV 10 ml BID ENOC Administration Sodium Chloride 10 ml 03/01/19 22:17 Sodium Chloride Flush Syringe 10 Ml IV PRN PRN LINE FLUSH
--- NOTE | 2019-03-19 16:22 | Progress Note ---
Assessment and Plan Assessment and plan: Patient is 58-year-old man history of hypertension, schizophrenia, bipolar, subarachnoid hemorrhage, status post frontal craniotomy with aneurysmal clip, end-stage renal disease on dialysis was sent from [facility] because he did not have dialysis since he was discharged on Wednesday. He was discharged on Wednesday after prolonged stay. Was reported that he was denied by [facility] dialysis.he has no complaints, very poor historian. Patient is able to speak but often choses not to He previously was ambulatory but admitted last time with left sided weakness Patient stay was prolonged due to placement issues He remained clinically stable, was treated for seizures and placed on keppra, baclofen discontinued Bp meds were adjusted due hypotension He was discharged after a dialysis place was established but returns because the dialysis centers pediatrician/medical doctor declined to now accept him Hydralazine stopped MIKEL on CKD 4 - vasomotor nephropathy versus progression of underlying chronic medical disease -Nephrology consulted -Avoid nephrotoxic agents -Renally dose all meds -Nephrology initiated hemdialysis on 12/6 H/O schizophrenia and bipolar - Abilify 5 mg PO daily, psych following -Hx Hypertension -BP uncontrolled. Continue to adjust medications as needed Hx Right subarachnoid hemorrhage, status post right frontal craniotomy Hx aneurysm, status post clipping -Continue supportive care -Neurology recommended outpatient follow Tobacco abuse -Current every day smoker -Counseled for cessation -Nicotine patch when necessary Moderate Protein Calorie Malnutrition Continue to encourage PO intake Thrombocytopenia. - cont to Monitor dvt/gi prophy Discharge once dialysis center obtained manager [employer] is now arranging for placement at [facility]. History Interval history: Patient was seen and examined. Follow-up on current diagnosis of ESRD. Overnight uneventful as no events directly reported to me. Patient denies any chest pain, shortness breath, nausea/vomiting or severe headaches. Imaging, nursing note, chart, labs and old chart reviewed. Discussed with patient. Hospitalist Physical - Physical exam Narrative exam: Gen: thin frail NAD, Awake, Alert, Orientated x 2 HEENT: old right skull deformity, EOMI, PERRL, OP Clear Neck: supple, no adenopathy, no thyromegaly, no JVD CVS/Heart: RRR, normal S1S2, pulses present bilaterally Chest/Lungs: CTA B, Symmetrical chest expansion, good air entry bilaterally GI/Abdomen: soft, NTND, good bowel sounds, no guarding or rebound /Bladder: no suprapubic tenderness, no CVA or paraspinal tenderness Extermity/Skin: no c/c/e, no obvious rash MSK: FROM x 4 Neuro: CN 2-12 grossly intact, no new focal deficits Psych: calm - Constitutional Vitals: Temp Pulse Resp BP Pulse Ox 97.9 F 89 14 114/94 100 03/19/19 12:07 03/19/19 12:07 03/19/19 12:07 03/19/19 12:07 03/19/19 12:07 Results - Labs CBC & Chem 7: 03/11/19 04:34 03/11/19 04:34 Labs: Laboratory Last Values WBC 7.2 K/mm3 (4.5-11.0) 03/11/19 04:34 RBC 3.63 M/mm3 (3.65-5.03) L 03/11/19 04:34 Hgb 10.2 gm/dl (11.8-15.2) L 03/11/19 04:34 Hct 32.0 % (35.5-45.6) L 03/11/19 04:34 MCV 88 fl (84-94) 03/11/19 04:34 MCH 28 pg (28-32) 03/11/19 04:34 MCHC 32 % (32-34) 03/11/19 04:34 RDW 13.3 % (13.2-15.2) 03/11/19 04:34 Plt Count 185 K/mm3 (140-440) 03/11/19 04:34 Lymph % (Auto) 19.0 % (13.4-35.0) 03/08/19 07:49 [place] % (Auto) 10.6 % (0.0-7.3) H 03/08/19 07:49 Eos % (Auto) 9.1 % (0.0-4.3) H 03/08/19 07:49 Baso % (Auto) 0.6 % (0.0-1.8) 03/08/19 07:49 Lymph # 1.3 K/mm3 (1.2-5.4) 03/08/19 07:49 [place] # 0.7 K/mm3 (0.0-0.8) 03/08/19 07:49 Eos # 0.6 K/mm3 (0.0-0.4) H 03/08/19 07:49 Baso # 0.0 K/mm3 (0.0-0.1) 03/08/19 07:49 Seg Neutrophils % 60.7 % (40.0-70.0) 03/08/19 07:49 Seg Neutrophils # 4.1 K/mm3 (1.8-7.7) 03/08/19 07:49 Sodium 138 mmol/L (137-145) 03/11/19 04:34 Potassium 4.1 mmol/L (3.6-5.0) 03/11/19 04:34 Chloride 98.4 mmol/L (98-107) 03/11/19 04:34 Carbon Dioxide 23 mmol/L (22-30) 03/11/19 04:34 Anion Gap 21 mmol/L 03/11/19 04:34 BUN 33 mg/dL (9-20) H 03/11/19 04:34 Creatinine 6.7 mg/dL (0.8-1.5) H 03/11/19 04:34 Estimated GFR 10 ml/min 03/11/19 04:34 BUN/Creatinine Ratio 5 % 03/11/19 04:34 Glucose 100 mg/dL (75-100) 03/11/19 04:34 POC Glucose 183 (70-105) H 03/15/19 11:20 Calcium 9.4 mg/dL (8.4-10.2) 03/11/19 04:34 Phosphorus 5.00 mg/dL (2.5-4.5) H 03/08/19 07:49 Magnesium 2.00 mg/dL (1.7-2.3) 03/08/19 07:49 Total Bilirubin 0.30 mg/dL (0.1-1.2) 03/08/19 07:49 AST 14 units/L (5-40) 03/08/19 07:49 ALT 10 units/L (7-56) 03/08/19 07:49 Alkaline Phosphatase 59 units/L (35-129) 03/08/19 07:49 Total Protein 7.1 g/dL (6.3-8.2) 03/08/19 07:49 Albumin 3.2 g/dL (3.9-5) L 03/08/19 07:49 Albumin/Globulin Ratio 0.8 % 03/08/19 07:49 Active Medications - Current Medications Current Medications: Generic Name Dose Route Start Last Admin Trade Name Freq PRN Reason Stop Dose Admin Acetaminophen 650 mg 03/01/19 22:17 Tylenol PO Q4H PRN Pain MILD(1-3)/Fever >100.5/QUAN Amlodipine Besylate 10 mg 03/02/19 10:00 03/19/19 09:35 Amlodipine PO 10 mg QDAY ENOC Administration Aripiprazole 5 mg 03/02/19 10:00 03/19/19 09:35 Aripiprazole PO 5 mg QDAY ENOC Administration Enoxaparin Sodium 30 mg 03/02/19 10:00 03/19/19 09:35 Enoxaparin SUB-Q 30 mg QDAY ENOC Administration Epoetin Polo 10,000 unit 03/02/19 08:31 03/15/19 14:21 Procrit IV 10,000 unit LOKESH PRN Administration hemodialysis Heparin Sodium (Porcine) 1,000 unit 03/02/19 08:31 03/15/19 10:28 Heparin 10,000 Units/10 Ml IV 1,000 unit LOKESH PRN Administration hemodialysis Heparin Sodium (Porcine) 5,000 unit 03/02/19 08:31 03/15/19 14:21 Heparin IV 5,000 unit LOKESH PRN Administration hemodialysis Sodium Chloride 100 mls @ 999 mls/hr 03/10/19 08:08 Nacl 0.9% IV LOKESH PRN Hypotension Ondansetron HCl 4 mg 03/01/19 22:17 Zofran IV Q8H PRN Nausea And Vomiting Pantoprazole Sodium 40 mg 03/02/19 10:00 03/19/19 09:35 Protonix PO 40 mg QDAY ENOC Administration Sodium Chloride 10 ml 03/02/19 10:00 03/19/19 09:35 Sodium Chloride Flush Syringe 10 Ml IV 10 ml BID ENOC Administration Sodium Chloride 10 ml 03/01/19 22:17 Sodium Chloride Flush Syringe 10 Ml IV PRN PRN LINE FLUSH Nutrition/Malnutrition Assess - Dietary Evaluation Nutrition/Malnutrition Findings: Nutrition Notes Start: 03/02/19 09:43 Freq: Status: Active Protocol: Document 03/13/19 14:17 LP (Rec: 03/13/19 14:18 LP [id number]) Nutrition Notes Initial or Follow up Reassessment Current Diagnosis CKD (stage V CKD),Hypertension Other Pertinent Diagnosis hematochezia Current Diet renal diet with Nepro BID Labs/Tests Reviewed Pertinent Medications Reviewed Height 5 ft 6 in Weight 57.4 kg [place] Body Weight (kg) 64.54 BMI 20.4 Weight Status Appropriate Subjective/Other Information Pt ccontinues eating well 75- 100% of meals recorded. Drinking supplements. Percent of energy/protein needs met: 100%/100% Burn Absent Trauma Absent GI Symptoms None Food Allergy No Current % PO Good (75-100%) Minimum of two criteria Yes Interpretation of Weight Loss (severe) >2% in 1 week Muscle Mass Mild Depletion (non-severe) #1 Nutrition Diagnosis Malnutrition Diagnosis Progress(for reassessment Continues documentation) Is patient on ventilator? No Is Patient Ambulatory and/or Out of Bed No REE-([facility]-confined to bed) 1603.080 Calculation Used for Recommendations [facility] Additional Notes Protein needs: >67 g (>1.2g/ kg) Fluid needs: 1000 - 1500 mL Nutrition Intervention Change Diet Order: continue renal diet Add Supplement/Snack (indicate name/kcal Nepro BID /protein ) Provides kCal: 850 Provides Protein (gm) 38 Goal #1 continue to meet at least 80% of dietary needs Anticipated Discharge Needs: Renal diet, w/ Nepro Supplement BID Follow-Up By: 03/20/19 Additional Comments Follow for stable intakes
[2019-03-20] MEDS: ENOXAPARIN 30 MG/0.3 ML INJ SUB-Q SCH (09:29)
[2019-03-20] MEDS: amLODIPine 10 MG TAB PO SCH (09:30)
[2019-03-20] MEDS: ARIPiprazole 5 MG TAB PO SCH (09:30)
[2019-03-20] MEDS: PANTOPRAZOLE 40 MG TAB PO SCH (09:30)
--- NOTE | 2019-03-20 10:35 | Progress Note ---
Assessment and Plan - Patient Problems (1) End-stage renal disease needing dialysis Current Visit: Yes Status: Chronic Plan to address problem: Continue HD on TTS schedule. outpatient HD arrangement as per case management . (2) Hypertension associated with stage 5 chronic kidney disease due to type 2 diabetes mellitus Current Visit: Yes Status: Chronic Plan to address problem: Follow-up blood pressure on current medications (3) Anemia Current Visit: No Status: Acute Plan to address problem: cont EPO with HD (4) Schizoaffective disorder Current Visit: No Status: Chronic Plan to address problem: follow psychiatry recommendations Subjective Date of service: 03/20/19 Principal diagnosis: ESRD, schizophrenia, malnutrition, was of the opinion Interval history: pt awake, alert in no acute distress. Objective - Vital Signs Vital signs: Vital Signs - 12hr 03/20/19 03/20/19 00:33 05:20 Temperature 98.0 F 98.3 F Pulse Rate 83 80 Respiratory 16 20 Rate Blood Pressure 126/90 132/94 O2 Sat by Pulse 98 97 Oximetry - General Appearance General appearance: well-developed, well-nourished, appears stated age EENT: ATNC, PERRL, mucous membranes moist Neck: no JVD Respiratory: Present: Clear to Ascultation Cardiology: regular, S1S2 Gastrointestinal: normoactive bowel sounds Integumentary: no rash, other (no edema ) Neurologic: no focal deficit, alert and oriented x3, strength 5/5, CN 3-12 intact Psychiatric: mood/affect appropriate, cooperative - Lab 03/11/19 04:34 03/11/19 04:34 Most recent lab results Calcium 9.4 mg/dL (8.4-10.2) 03/11/19 04:34 Phosphorus 5.00 mg/dL (2.5-4.5) H 03/08/19 07:49 Magnesium 2.00 mg/dL (1.7-2.3) 03/08/19 07:49 Medications & Allergies - Medications Allergies/Adverse Reactions: Allergies No Known Allergies Allergy (Unverified 04/17/17 13:03) Home Medications: Home Medications Medication Instructions Recorded Confirmed Last Taken Type ARIPiprazole 5 mg PO QDAY #30 tablet 02/27/19 03/01/19 Unknown Rx Pantoprazole [Protonix TAB] 40 mg PO QDAY #30 tablet 02/27/19 03/01/19 Unknown Rx amLODIPine 10 mg PO QDAY #30 tablet 02/27/19 03/01/19 Unknown Rx hydrALAZINE [Apresoline TAB] 50 mg PO TID #90 tab 02/27/19 03/01/19 Unknown Rx Active Medications: Generic Name Dose Route Start Last Admin Trade Name Freq PRN Reason Stop Dose Admin Acetaminophen 650 mg 03/01/19 22:17 Tylenol PO Q4H PRN Pain MILD(1-3)/Fever >100.5/QUAN Amlodipine Besylate 10 mg 03/02/19 10:00 03/20/19 09:30 Amlodipine PO 10 mg QDAY ENOC Administration Aripiprazole 5 mg 03/02/19 10:00 03/20/19 09:30 Aripiprazole PO 5 mg QDAY ENOC Administration Enoxaparin Sodium 30 mg 03/02/19 10:00 03/20/19 09:29 Enoxaparin SUB-Q 30 mg QDAY ENOC Administration Epoetin Polo 10,000 unit 03/02/19 08:31 03/15/19 14:21 Procrit IV 10,000 unit LOKESH PRN Administration hemodialysis Heparin Sodium (Porcine) 1,000 unit 03/02/19 08:31 03/15/19 10:28 Heparin 10,000 Units/10 Ml IV 1,000 unit LOKESH PRN Administration hemodialysis Heparin Sodium (Porcine) 5,000 unit 03/02/19 08:31 03/15/19 14:21 Heparin IV 5,000 unit LOKESH PRN Administration hemodialysis Sodium Chloride 100 mls @ 999 mls/hr 03/10/19 08:08 Nacl 0.9% IV LOKESH PRN Hypotension Ondansetron HCl 4 mg 03/01/19 22:17 Zofran IV Q8H PRN Nausea And Vomiting Pantoprazole Sodium 40 mg 03/02/19 10:00 03/20/19 09:30 Protonix PO 40 mg QDAY ENOC Administration Sodium Chloride 10 ml 03/02/19 10:00 03/20/19 09:30 Sodium Chloride Flush Syringe 10 Ml IV 10 ml BID ENOC Administration Sodium Chloride 10 ml 03/01/19 22:17 Sodium Chloride Flush Syringe 10 Ml IV PRN PRN LINE FLUSH
[2019-03-20] MEDS ORDERED: SODIUM CHLORIDE 0.9% 1000 ML 2,000 ML ONE (12:31)
[2019-03-20] MEDS: EPOETIN ALFA 10,000 UNIT/1 ML INJ IV PRN (13:15)
--- NOTE | 2019-03-20 14:18 | Progress Note ---
Assessment and Plan Assessment and plan: Patient is 58-year-old man history of hypertension, schizophrenia, bipolar, subarachnoid hemorrhage, status post frontal craniotomy with aneurysmal clip, end-stage renal disease on dialysis [facility] since he was discharged on Wednesday. He was discharged on Wednesday after prolonged stay. Was reported that he was denied by [facility] dialysis.he has no complaints, very poor historian. Patient is able to speak but often choses not to He previously was ambulatory but admitted last time with left sided weakness Patient stay was prolonged due to placement issues He remained clinically stable, was treated for seizures and placed on keppra, baclofen discontinued Bp meds were adjusted due hypotension He was discharged after a dialysis place was established but returns because the dialysis centers center medical specialist declined to now accept him Hydralazine stopped MIKEL on CKD 4 - vasomotor nephropathy versus progression of underlying chronic medical disease -Nephrology consulted -Avoid nephrotoxic agents -Renally dose all meds -Nephrology initiated hemdialysis on 12/6 H/O schizophrenia and bipolar - Abilify 5 mg PO daily, psych following -Hx Hypertension -BP uncontrolled. Continue to adjust medications as needed Hx Right subarachnoid hemorrhage, status post right frontal craniotomy Hx aneurysm, status post clipping -Continue supportive care -Neurology recommended outpatient follow Tobacco abuse -Current every day smoker -Counseled for cessation -Nicotine patch when necessary Moderate Protein Calorie Malnutrition Continue to encourage PO intake Thrombocytopenia. - cont to Monitor dvt/gi prophy Discharge once dialysis center obtained retail operations manager is now arranging for placement at [facility]. History Interval history: Patient was seen and examined. Follow-up on current diagnosis of ESRD. Overnight uneventful as no events directly reported to me. Patient denies any chest pain, shortness breath, nausea/vomiting or severe headaches. Imaging, nursing note, chart, labs and old chart reviewed. Going for HD today Hospitalist Physical - Physical exam Narrative exam: Gen: thin frail NAD, Awake, Alert, Orientated x 2 HEENT: old right skull deformity, EOMI, PERRL, OP Clear Neck: supple, no adenopathy, no thyromegaly, no JVD CVS/Heart: RRR, normal S1S2, pulses present bilaterally Chest/Lungs: CTA B, Symmetrical chest expansion, good air entry bilaterally GI/Abdomen: soft, NTND, good bowel sounds, no guarding or rebound /Bladder: no suprapubic tenderness, no CVA or paraspinal tenderness Extermity/Skin: no c/c/e, no obvious rash MSK: FROM x 4 Neuro: CN 2-12 grossly intact, no new focal deficits Psych: calm - Constitutional Vitals: Temp Pulse Resp BP Pulse Ox 97.2 F L 102 H 18 131/90 97 03/20/19 10:10 03/20/19 11:15 03/20/19 10:10 03/20/19 11:15 03/20/19 05:20 Results - Labs CBC & Chem 7: 03/11/19 04:34 03/11/19 04:34 Labs: Laboratory Last Values WBC 7.2 K/mm3 (4.5-11.0) 03/11/19 04:34 RBC 3.63 M/mm3 (3.65-5.03) L 03/11/19 04:34 Hgb 10.2 gm/dl (11.8-15.2) L 03/11/19 04:34 Hct 32.0 % (35.5-45.6) L 03/11/19 04:34 MCV 88 fl (84-94) 03/11/19 04:34 MCH 28 pg (28-32) 03/11/19 04:34 MCHC 32 % (32-34) 03/11/19 04:34 RDW 13.3 % (13.2-15.2) 03/11/19 04:34 Plt Count 185 K/mm3 (140-440) 03/11/19 04:34 Lymph % (Auto) 19.0 % (13.4-35.0) 03/08/19 07:49 [place] % (Auto) 10.6 % (0.0-7.3) H 03/08/19 07:49 Eos % (Auto) 9.1 % (0.0-4.3) H 03/08/19 07:49 Baso % (Auto) 0.6 % (0.0-1.8) 03/08/19 07:49 Lymph # 1.3 K/mm3 (1.2-5.4) 03/08/19 07:49 [place] # 0.7 K/mm3 (0.0-0.8) 03/08/19 07:49 Eos # 0.6 K/mm3 (0.0-0.4) H 03/08/19 07:49 Baso # 0.0 K/mm3 (0.0-0.1) 03/08/19 07:49 Seg Neutrophils % 60.7 % (40.0-70.0) 03/08/19 07:49 Seg Neutrophils # 4.1 K/mm3 (1.8-7.7) 03/08/19 07:49 Sodium 138 mmol/L (137-145) 03/11/19 04:34 Potassium 4.1 mmol/L (3.6-5.0) 03/11/19 04:34 Chloride 98.4 mmol/L (98-107) 03/11/19 04:34 Carbon Dioxide 23 mmol/L (22-30) 03/11/19 04:34 Anion Gap 21 mmol/L 03/11/19 04:34 BUN 33 mg/dL (9-20) H 03/11/19 04:34 Creatinine 6.7 mg/dL (0.8-1.5) H 03/11/19 04:34 Estimated GFR 10 ml/min 03/11/19 04:34 BUN/Creatinine Ratio 5 % 03/11/19 04:34 Glucose 100 mg/dL (75-100) 03/11/19 04:34 POC Glucose 183 (70-105) H 03/15/19 11:20 Calcium 9.4 mg/dL (8.4-10.2) 03/11/19 04:34 Phosphorus 5.00 mg/dL (2.5-4.5) H 03/08/19 07:49 Magnesium 2.00 mg/dL (1.7-2.3) 03/08/19 07:49 Total Bilirubin 0.30 mg/dL (0.1-1.2) 03/08/19 07:49 AST 14 units/L (5-40) 03/08/19 07:49 ALT 10 units/L (7-56) 03/08/19 07:49 Alkaline Phosphatase 59 units/L (35-129) 03/08/19 07:49 Total Protein 7.1 g/dL (6.3-8.2) 03/08/19 07:49 Albumin 3.2 g/dL (3.9-5) L 03/08/19 07:49 Albumin/Globulin Ratio 0.8 % 03/08/19 07:49 Active Medications - Current Medications Current Medications: Generic Name Dose Route Start Last Admin Trade Name Freq PRN Reason Stop Dose Admin Acetaminophen 650 mg 03/01/19 22:17 Tylenol PO Q4H PRN Pain MILD(1-3)/Fever >100.5/QUAN Amlodipine Besylate 10 mg 03/02/19 10:00 03/20/19 09:30 Amlodipine PO 10 mg QDAY ENOC Administration Aripiprazole 5 mg 03/02/19 10:00 03/20/19 09:30 Aripiprazole PO 5 mg QDAY ENOC Administration Enoxaparin Sodium 30 mg 03/02/19 10:00 03/20/19 09:29 Enoxaparin SUB-Q 30 mg QDAY ENOC Administration Epoetin Polo 10,000 unit 03/02/19 08:31 03/15/19 14:21 Procrit IV 10,000 unit LOKESH PRN Administration hemodialysis Heparin Sodium (Porcine) 1,000 unit 03/02/19 08:31 03/15/19 10:28 Heparin 10,000 Units/10 Ml IV 1,000 unit LOKESH PRN Administration hemodialysis Heparin Sodium (Porcine) 5,000 unit 03/02/19 08:31 03/15/19 14:21 Heparin IV 5,000 unit LOKESH PRN Administration hemodialysis Sodium Chloride 100 mls @ 999 mls/hr 03/10/19 08:08 Nacl 0.9% IV LOKESH PRN Hypotension Ondansetron HCl 4 mg 03/01/19 22:17 Zofran IV Q8H PRN Nausea And Vomiting Pantoprazole Sodium 40 mg 03/02/19 10:00 03/20/19 09:30 Protonix PO 40 mg QDAY ENOC Administration Sodium Chloride 10 ml 03/02/19 10:00 03/20/19 09:30 Sodium Chloride Flush Syringe 10 Ml IV 10 ml BID ENOC Administration Sodium Chloride 10 ml 03/01/19 22:17 Sodium Chloride Flush Syringe 10 Ml IV PRN PRN LINE FLUSH Nutrition/Malnutrition Assess - Dietary Evaluation Nutrition/Malnutrition Findings: Nutrition Notes Start: 03/02/19 09:43 Freq: Status: Active Protocol: Document 03/13/19 14:17 LP (Rec: 12/30/19 14:18 LP [id number]) Nutrition Notes Initial or Follow up Reassessment Current Diagnosis CKD (stage V CKD),Hypertension Other Pertinent Diagnosis hematochezia Current Diet renal diet with Nepro BID Labs/Tests Reviewed Pertinent Medications Reviewed Height 5 ft 6 in Weight 57.4 kg [place] Body Weight (kg) 64.54 BMI 20.4 Weight Status Appropriate Subjective/Other Information Pt ccontinues eating well 75- 100% of meals recorded. Drinking supplements. Percent of energy/protein needs met: 100%/100% Burn Absent Trauma Absent GI Symptoms None Food Allergy No Current % PO Good (75-100%) Minimum of two criteria Yes Interpretation of Weight Loss (severe) >2% in 1 week Muscle Mass Mild Depletion (non-severe) #1 Nutrition Diagnosis Malnutrition Diagnosis Progress(for reassessment Continues documentation) Is patient on ventilator? No Is Patient Ambulatory and/or Out of Bed No REE-([facility]-confined to bed) 1603.080 Calculation Used for Recommendations [facility] Additional Notes Protein needs: >67 g (>1.2g/ kg) Fluid needs: 1000 - 1500 mL Nutrition Intervention Change Diet Order: continue renal diet Add Supplement/Snack (indicate name/kcal Nepro BID /protein ) Provides kCal: 850 Provides Protein (gm) 38 Goal #1 continue to meet at least 80% of dietary needs Anticipated Discharge Needs: Renal diet, w/ Nepro Supplement BID Follow-Up By: 03/20/19 Additional Comments Follow for stable intakes
[2019-03-21] MEDS: ENOXAPARIN 30 MG/0.3 ML INJ SUB-Q SCH (09:37)
[2019-03-21] MEDS: PANTOPRAZOLE 40 MG TAB PO SCH (09:37)
[2019-03-21] MEDS: ARIPiprazole 5 MG TAB PO SCH (09:37)
--- NOTE | 2019-03-21 11:18 | Progress Note ---
Assessment and Plan - Patient Problems (1) End-stage renal disease needing dialysis Current Visit: Yes Status: Chronic Plan to address problem: Continue HD on TTS schedule. outpatient HD arrangement as per case management . (2) Hypertension associated with stage 5 chronic kidney disease due to type 2 diabetes mellitus Current Visit: Yes Status: Chronic Plan to address problem: Follow-up blood pressure on current medications (3) Anemia Current Visit: No Status: Acute Plan to address problem: cont EPO with HD (4) Schizoaffective disorder Current Visit: No Status: Chronic Plan to address problem: follow psychiatry recommendations Subjective Date of service: 03/21/19 Principal diagnosis: ESRD, schizophrenia, malnutrition, was of the opinion Interval history: pt awake, alert in no acute distress. Objective - Vital Signs Vital signs: Vital Signs - 12hr 03/20/19 03/21/19 23:19 04:48 Temperature 98.2 F 98.9 F Pulse Rate 103 H 101 H Respiratory 18 20 Rate Blood Pressure 113/85 129/87 O2 Sat by Pulse 100 99 Oximetry - General Appearance General appearance: well-developed, well-nourished, appears stated age EENT: ATNC, PERRL, mucous membranes moist Neck: no JVD Respiratory: Present: Clear to Ascultation Cardiology: regular, S1S2 Gastrointestinal: normoactive bowel sounds Integumentary: no rash, other (no edema ) Neurologic: no focal deficit, alert and oriented x3, strength 5/5, CN 3-12 intact Psychiatric: mood/affect appropriate, cooperative - Lab 03/11/19 04:34 03/11/19 04:34 Most recent lab results Calcium 9.4 mg/dL (8.4-10.2) 03/11/19 04:34 Phosphorus 5.00 mg/dL (2.5-4.5) H 03/08/19 07:49 Magnesium 2.00 mg/dL (1.7-2.3) 03/08/19 07:49 Medications & Allergies - Medications Allergies/Adverse Reactions: Allergies No Known Allergies Allergy (Unverified 04/17/17 13:03) Home Medications: Home Medications Medication Instructions Recorded Confirmed Last Taken Type ARIPiprazole 5 mg PO QDAY #30 tablet 02/27/19 03/01/19 Unknown Rx Pantoprazole [Protonix TAB] 40 mg PO QDAY #30 tablet 02/27/19 03/01/19 Unknown Rx amLODIPine 10 mg PO QDAY #30 tablet 02/27/19 03/01/19 Unknown Rx hydrALAZINE [Apresoline TAB] 50 mg PO TID #90 tab 02/27/19 03/01/19 Unknown Rx Active Medications: Generic Name Dose Route Start Last Admin Trade Name Freq PRN Reason Stop Dose Admin Acetaminophen 650 mg 03/01/19 22:17 Tylenol PO Q4H PRN Pain MILD(1-3)/Fever >100.5/QUAN Amlodipine Besylate 10 mg 03/02/19 10:00 03/20/19 09:30 Amlodipine PO 10 mg QDAY ENOC Administration Aripiprazole 5 mg 03/02/19 10:00 03/21/19 09:37 Aripiprazole PO 5 mg QDAY ENOC Administration Enoxaparin Sodium 30 mg 03/02/19 10:00 03/21/19 09:37 Enoxaparin SUB-Q 30 mg QDAY ENOC Administration Epoetin Polo 10,000 unit 03/02/19 08:31 03/20/19 13:15 Procrit IV 10,000 unit LOKESH PRN Administration hemodialysis Heparin Sodium (Porcine) 1,000 unit 03/02/19 08:31 03/15/19 10:28 Heparin 10,000 Units/10 Ml IV 1,000 unit LOKESH PRN Administration hemodialysis Heparin Sodium (Porcine) 5,000 unit 03/02/19 08:31 03/15/19 14:21 Heparin IV 5,000 unit LOKESH PRN Administration hemodialysis Sodium Chloride 100 mls @ 999 mls/hr 03/10/19 08:08 Nacl 0.9% IV LOKESH PRN Hypotension Ondansetron HCl 4 mg 03/01/19 22:17 Zofran IV Q8H PRN Nausea And Vomiting Pantoprazole Sodium 40 mg 03/02/19 10:00 03/21/19 09:37 Protonix PO 40 mg QDAY ENOC Administration Sodium Chloride 10 ml 03/02/19 10:00 03/20/19 23:45 Sodium Chloride Flush Syringe 10 Ml IV 10 ml BID ENOC Administration Sodium Chloride 10 ml 03/01/19 22:17 Sodium Chloride Flush Syringe 10 Ml IV PRN PRN LINE FLUSH
[2019-03-21] MEDS: amLODIPine 10 MG TAB PO SCH (12:22)
--- NOTE | 2019-03-21 12:23 | Progress Note ---
Assessment and Plan Assessment and plan: Patient is 58-year-old man history of hypertension, schizophrenia, bipolar, subarachnoid hemorrhage, status post frontal craniotomy with aneurysmal clip, end-stage renal disease on dialysis was sent from [facility] because he did not have dialysis since he was discharged on Wednesday. He was discharged on Wednesday after prolonged stay. Was reported that he was denied by [facility] dialysis.he has no complaints, very poor historian. Patient is able to speak but often choses not to He previously was ambulatory but admitted last time with left sided weakness Patient stay was prolonged due to placement issues He remained clinically stable, was treated for seizures and placed on keppra, baclofen discontinued Bp meds were adjusted due hypotension He was discharged after a dialysis place was established but returns because the dialysis centers biomedical equipment tech declined to now accept him Hydralazine stopped End-stage renal disease -Nephrology consulted -Avoid nephrotoxic agents -Renally dose all meds -Nephrology initiated hemdialysis on 12/6 H/O schizophrenia and bipolar - Abilify 5 mg PO daily, psych following -Hx Hypertension -BP uncontrolled. Continue to adjust medications as needed Hx Right subarachnoid hemorrhage, status post right frontal craniotomy Hx aneurysm, status post clipping -Continue supportive care -Neurology recommended outpatient follow Tobacco abuse -Current every day smoker -Counseled for cessation -Nicotine patch when necessary Moderate Protein Calorie Malnutrition Continue to encourage PO intake Thrombocytopenia. - cont to Monitor dvt/gi prophy Discharge once dialysis center obtained manager air is now arranging for placement No family at bedside today. History Interval history: Patient seen and examined remained stable no acute distress reported at this time. Hospitalist Physical - Physical exam Narrative exam: Gen: thin frail NAD, Awake, Alert, Orientated x 2 HEENT: old right skull deformity, EOMI, PERRL, OP Clear Neck: supple, no adenopathy, no thyromegaly, no JVD CVS/Heart: RRR, normal S1S2, pulses present bilaterally Chest/Lungs: CTA B, Symmetrical chest expansion, good air entry bilaterally GI/Abdomen: soft, NTND, good bowel sounds, no guarding or rebound /Bladder: no suprapubic tenderness, no CVA or paraspinal tenderness Extermity/Skin: no c/c/e, no obvious rash MSK: FROM x 4 Neuro: CN 2-12 grossly intact, no new focal deficits Psych: calm - Constitutional Vitals: Temp Pulse Resp BP Pulse Ox 98.5 F 107 H 18 115/76 100 03/21/19 11:00 03/21/19 12:22 03/21/19 11:00 03/21/19 12:22 03/21/19 11:00 Results - Labs CBC & Chem 7: 03/11/19 04:34 03/11/19 04:34 Labs: Laboratory Last Values WBC 7.2 K/mm3 (4.5-11.0) 03/11/19 04:34 RBC 3.63 M/mm3 (3.65-5.03) L 03/11/19 04:34 Hgb 10.2 gm/dl (11.8-15.2) L 03/11/19 04:34 Hct 32.0 % (35.5-45.6) L 03/11/19 04:34 MCV 88 fl (84-94) 03/11/19 04:34 MCH 28 pg (28-32) 03/11/19 04:34 MCHC 32 % (32-34) 03/11/19 04:34 RDW 13.3 % (13.2-15.2) 03/11/19 04:34 Plt Count 185 K/mm3 (140-440) 03/11/19 04:34 Lymph % (Auto) 19.0 % (13.4-35.0) 03/08/19 07:49 [place] % (Auto) 10.6 % (0.0-7.3) H 03/08/19 07:49 Eos % (Auto) 9.1 % (0.0-4.3) H 03/08/19 07:49 Baso % (Auto) 0.6 % (0.0-1.8) 03/08/19 07:49 Lymph # 1.3 K/mm3 (1.2-5.4) 03/08/19 07:49 [place] # 0.7 K/mm3 (0.0-0.8) 03/08/19 07:49 Eos # 0.6 K/mm3 (0.0-0.4) H 03/08/19 07:49 Baso # 0.0 K/mm3 (0.0-0.1) 03/08/19 07:49 Seg Neutrophils % 60.7 % (40.0-70.0) 03/08/19 07:49 Seg Neutrophils # 4.1 K/mm3 (1.8-7.7) 03/08/19 07:49 Sodium 138 mmol/L (137-145) 03/11/19 04:34 Potassium 4.1 mmol/L (3.6-5.0) 03/11/19 04:34 Chloride 98.4 mmol/L (98-107) 03/11/19 04:34 Carbon Dioxide 23 mmol/L (22-30) 03/11/19 04:34 Anion Gap 21 mmol/L 03/11/19 04:34 BUN 33 mg/dL (9-20) H 03/11/19 04:34 Creatinine 6.7 mg/dL (0.8-1.5) H 03/11/19 04:34 Estimated GFR 10 ml/min 03/11/19 04:34 BUN/Creatinine Ratio 5 % 03/11/19 04:34 Glucose 100 mg/dL (75-100) 03/11/19 04:34 POC Glucose 183 (70-105) H 03/15/19 11:20 Calcium 9.4 mg/dL (8.4-10.2) 03/11/19 04:34 Phosphorus 5.00 mg/dL (2.5-4.5) H 03/08/19 07:49 Magnesium 2.00 mg/dL (1.7-2.3) 03/08/19 07:49 Total Bilirubin 0.30 mg/dL (0.1-1.2) 03/08/19 07:49 AST 14 units/L (5-40) 03/08/19 07:49 ALT 10 units/L (7-56) 03/08/19 07:49 Alkaline Phosphatase 59 units/L (35-129) 03/08/19 07:49 Total Protein 7.1 g/dL (6.3-8.2) 03/08/19 07:49 Albumin 3.2 g/dL (3.9-5) L 03/08/19 07:49 Albumin/Globulin Ratio 0.8 % 03/08/19 07:49 Active Medications - Current Medications Current Medications: Generic Name Dose Route Start Last Admin Trade Name Freq PRN Reason Stop Dose Admin Acetaminophen 650 mg 03/01/19 22:17 Tylenol PO Q4H PRN Pain MILD(1-3)/Fever >100.5/QUAN Amlodipine Besylate 10 mg 03/02/19 10:00 03/21/19 12:22 Amlodipine PO 10 mg QDAY ENOC Administration Aripiprazole 5 mg 03/02/19 10:00 03/21/19 09:37 Aripiprazole PO 5 mg QDAY ENOC Administration Enoxaparin Sodium 30 mg 03/02/19 10:00 03/21/19 09:37 Enoxaparin SUB-Q 30 mg QDAY ENOC Administration Epoetin Polo 10,000 unit 03/02/19 08:31 03/20/19 13:15 Procrit IV 10,000 unit LOKESH PRN Administration hemodialysis Heparin Sodium (Porcine) 1,000 unit 03/02/19 08:31 03/15/19 10:28 Heparin 10,000 Units/10 Ml IV 1,000 unit LOKESH PRN Administration hemodialysis Heparin Sodium (Porcine) 5,000 unit 03/02/19 08:31 03/15/19 14:21 Heparin IV 5,000 unit LOKESH PRN Administration hemodialysis Sodium Chloride 100 mls @ 999 mls/hr 03/10/19 08:08 Nacl 0.9% IV LOKESH PRN Hypotension Ondansetron HCl 4 mg 03/01/19 22:17 Zofran IV Q8H PRN Nausea And Vomiting Pantoprazole Sodium 40 mg 03/02/19 10:00 03/21/19 09:37 Protonix PO 40 mg QDAY ENOC Administration Sodium Chloride 10 ml 03/02/19 10:00 03/21/19 12:22 Sodium Chloride Flush Syringe 10 Ml IV 10 ml BID ENOC Administration Sodium Chloride 10 ml 03/01/19 22:17 Sodium Chloride Flush Syringe 10 Ml IV PRN PRN LINE FLUSH Nutrition/Malnutrition Assess - Dietary Evaluation Nutrition/Malnutrition Findings: Nutrition Notes Start: 03/02/19 09:43 Freq: Status: Active Protocol: Document 03/20/19 14:47 OH (Rec: 03/20/19 14:53 OH [id number]) Nutrition Notes Initial or Follow up Reassessment Current Diagnosis CKD (stage V CKD),Hypertension Other Pertinent Diagnosis hematochezia Current Diet renal diet with Nepro BID Labs/Tests cr 6.7 glu 183 Pertinent Medications Reviewed Height 5 ft 6 in Weight 54.1 kg [place] Body Weight (kg) 64.54 BMI 19.2 Weight change and time frame Wt noted to be downward trending. Subjective/Other Information Difficulty w/placement for dialysis. Pt. eating/drinking appropriately to maintain nutritional status wnl. Percent of energy/protein needs met: 100/100% Burn Absent Trauma Absent GI Symptoms None Food Allergy No Current % PO Good (75-100%) Minimum of two criteria Yes Interpretation of Weight Loss (severe) >2% in 1 week Muscle Mass Mild Depletion (non-severe) #1 Nutrition Diagnosis Malnutrition Diagnosis Progress(for reassessment Continues documentation) Is patient on ventilator? No Is Patient Ambulatory and/or Out of Bed No REE-([facility]-confined to bed) [phone] Calculation Used for Recommendations [facility] Additional Notes Protein needs: >67 g (>1.2g/ kg) Fluid needs: 1000 - 1500 mL Nutrition Intervention Change Diet Order: continue renal diet Add Supplement/Snack (indicate name/kcal Nepro BID /protein ) Provides kCal: 850 Provides Protein (gm) 38 Goal #1 continue to meet at least 80% of dietary needs Anticipated Discharge Needs: Renal diet, w/ Nepro Supplement BID Follow-Up By: 03/27/19 Additional Comments Follow for diet tolerance/ONS
--- NOTE | 2019-03-22 09:57 | Progress Note ---
Assessment and Plan - Patient Problems (1) End-stage renal disease needing dialysis Current Visit: Yes Status: Chronic Plan to address problem: Continue HD on TTS schedule. outpatient HD arrangement as per case management . (2) Hypertension associated with stage 5 chronic kidney disease due to type 2 diabetes mellitus Current Visit: Yes Status: Chronic Plan to address problem: Follow-up blood pressure on current medications (3) Anemia Current Visit: No Status: Acute Plan to address problem: cont EPO with HD (4) Schizoaffective disorder Current Visit: No Status: Chronic Plan to address problem: follow psychiatry recommendations Subjective Date of service: 03/22/19 Principal diagnosis: ESRD, schizophrenia, malnutrition, was of the opinion Interval history: pt awake, alert in no acute distress. Objective - Vital Signs Vital signs: Vital Signs - 12hr 03/21/19 03/22/19 23:09 05:34 Temperature 98.8 F 98.2 F Pulse Rate 117 H 107 H Respiratory 20 20 Rate Blood Pressure 129/108 156/104 O2 Sat by Pulse 99 99 Oximetry - General Appearance General appearance: well-developed, well-nourished, appears stated age EENT: ATNC, PERRL, mucous membranes moist Neck: no JVD Respiratory: Present: Clear to Ascultation Cardiology: regular, S1S2 Gastrointestinal: normoactive bowel sounds Integumentary: no rash, other (no edema ) Neurologic: no focal deficit, alert and oriented x3, strength 5/5, CN 3-12 intact Psychiatric: mood/affect appropriate, cooperative - Lab 03/11/19 04:34 03/11/19 04:34 Most recent lab results Calcium 9.4 mg/dL (8.4-10.2) 03/11/19 04:34 Phosphorus 5.00 mg/dL (2.5-4.5) H 03/08/19 07:49 Magnesium 2.00 mg/dL (1.7-2.3) 03/08/19 07:49 Medications & Allergies - Medications Allergies/Adverse Reactions: Allergies No Known Allergies Allergy (Unverified 04/17/17 13:03) Home Medications: Home Medications Medication Instructions Recorded Confirmed Last Taken Type ARIPiprazole 5 mg PO QDAY #30 tablet 02/27/19 03/01/19 Unknown Rx Pantoprazole [Protonix TAB] 40 mg PO QDAY #30 tablet 02/27/19 03/01/19 Unknown Rx amLODIPine 10 mg PO QDAY #30 tablet 02/27/19 03/01/19 Unknown Rx hydrALAZINE [Apresoline TAB] 50 mg PO TID #90 tab 02/27/19 03/01/19 Unknown Rx Active Medications: Generic Name Dose Route Start Last Admin Trade Name Freq PRN Reason Stop Dose Admin Acetaminophen 650 mg 03/01/19 22:17 Tylenol PO Q4H PRN Pain MILD(1-3)/Fever >100.5/QUAN Amlodipine Besylate 10 mg 03/02/19 10:00 03/21/19 12:22 Amlodipine PO 10 mg QDAY ENOC Administration Aripiprazole 5 mg 03/02/19 10:00 03/21/19 09:37 Aripiprazole PO 5 mg QDAY ENOC Administration Enoxaparin Sodium 30 mg 03/02/19 10:00 03/21/19 09:37 Enoxaparin SUB-Q 30 mg QDAY ENOC Administration Epoetin Polo 10,000 unit 03/02/19 08:31 03/20/19 13:15 Procrit IV 10,000 unit LOKESH PRN Administration hemodialysis Heparin Sodium (Porcine) 1,000 unit 03/02/19 08:31 03/15/19 10:28 Heparin 10,000 Units/10 Ml IV 1,000 unit LOKESH PRN Administration hemodialysis Heparin Sodium (Porcine) 5,000 unit 03/02/19 08:31 03/15/19 14:21 Heparin IV 5,000 unit LOKESH PRN Administration hemodialysis Sodium Chloride 100 mls @ 999 mls/hr 03/10/19 08:08 Nacl 0.9% IV LOKESH PRN Hypotension Ondansetron HCl 4 mg 03/01/19 22:17 Zofran IV Q8H PRN Nausea And Vomiting Pantoprazole Sodium 40 mg 03/02/19 10:00 03/21/19 09:37 Protonix PO 40 mg QDAY ENOC Administration Sodium Chloride 10 ml 03/02/19 10:00 03/21/19 12:22 Sodium Chloride Flush Syringe 10 Ml IV 10 ml BID ENOC Administration Sodium Chloride 10 ml 03/01/19 22:17 Sodium Chloride Flush Syringe 10 Ml IV PRN PRN LINE FLUSH
[2019-03-22] MEDS: ARIPiprazole 5 MG TAB PO SCH (10:49)
[2019-03-22] MEDS: PANTOPRAZOLE 40 MG TAB PO SCH (10:49)
[2019-03-22] MEDS: amLODIPine 10 MG TAB PO SCH (10:51)
[2019-03-22] MEDS: ENOXAPARIN 30 MG/0.3 ML INJ SUB-Q SCH (10:52)
[2019-03-22 12:25] LABS: Hepatitis B Surface Antigen Non-Reactive (Negative); Hepatitis C Virus Antibody Non-Reactive (NonReactive)
[2019-03-22] MEDS ORDERED: SODIUM CHLORIDE 0.9% 1000 ML 2,000 ML ONE (14:45)
[2019-03-22] MEDS: EPOETIN ALFA 10,000 UNIT/1 ML INJ IV PRN (15:00)
--- NOTE | 2019-03-22 18:11 | Progress Note ---
Assessment and Plan Assessment and plan: Patient is 58-year-old man history of hypertension, schizophrenia, bipolar, subarachnoid hemorrhage, status post frontal craniotomy with aneurysmal clip, end-stage renal disease on dialysis was sent from [facility] because he did not have dialysis since he was discharged on Wednesday. He was discharged on Wednesday after prolonged stay. Was reported that he was denied by [facility] dialysis.he has no complaints, very poor historian. Patient is able to speak but often choses not to He previously was ambulatory but admitted last time with left sided weakness Patient stay was prolonged due to placement issues He remained clinically stable, was treated for seizures and placed on keppra, baclofen discontinued Bp meds were adjusted due hypotension He was discharged after a dialysis place was established but returns because the dialysis centers medical safety director declined to now accept him Hydralazine stopped End-stage renal disease -Nephrology consulted -Avoid nephrotoxic agents -Renally dose all meds -Nephrology initiated hemdialysis on 12/6 H/O schizophrenia and bipolar - Abilify 5 mg PO daily, psych following -Hx Hypertension -BP uncontrolled. Continue to adjust medications as needed Hx Right subarachnoid hemorrhage, status post right frontal craniotomy Hx aneurysm, status post clipping -Continue supportive care -Neurology recommended outpatient follow Tobacco abuse -Current every day smoker -Counseled for cessation -Nicotine patch when necessary Moderate Protein Calorie Malnutrition Continue to encourage PO intake Thrombocytopenia. - cont to Monitor dvt/gi prophy Discharge once dialysis center obtained solar sales manager is now arranging for placement No family at bedside today. No clinical change in documented at this time History Interval history: Patient seen and examined remained stable no acute distress reported at this time. NO Adverse event reported to me Hospitalist Physical - Physical exam Narrative exam: Gen: thin frail NAD, Awake, Alert, Orientated x 2, lying in bed comfortably HEENT: old right skull deformity, EOMI, PERRL, OP Clear Neck: supple, no adenopathy, no thyromegaly, no JVD CVS/Heart: RRR, normal S1S2, pulses present bilaterally Chest/Lungs: CTA B, Symmetrical chest expansion, good air entry bilaterally GI/Abdomen: soft, NTND, good bowel sounds, no guarding or rebound /Bladder: no suprapubic tenderness, no CVA or paraspinal tenderness Extermity/Skin: no c/c/e, no obvious rash MSK: FROM x 4 Neuro: CN 2-12 grossly intact, no new focal deficits Psych: calm - Constitutional Vitals: Temp Pulse Resp BP Pulse Ox 98.5 F 108 H 18 129/91 100 03/22/19 17:25 03/22/19 17:25 03/22/19 17:25 03/22/19 17:25 03/22/19 17:25 Results - Labs CBC & Chem 7: 03/11/19 04:34 03/11/19 04:34 Labs: Laboratory Last Values WBC 7.2 K/mm3 (4.5-11.0) 03/11/19 04:34 RBC 3.63 M/mm3 (3.65-5.03) L 03/11/19 04:34 Hgb 10.2 gm/dl (11.8-15.2) L 03/11/19 04:34 Hct 32.0 % (35.5-45.6) L 03/11/19 04:34 MCV 88 fl (84-94) 03/11/19 04:34 MCH 28 pg (28-32) 03/11/19 04:34 MCHC 32 % (32-34) 03/11/19 04:34 RDW 13.3 % (13.2-15.2) 03/11/19 04:34 Plt Count 185 K/mm3 (140-440) 03/11/19 04:34 Lymph % (Auto) 19.0 % (13.4-35.0) 03/08/19 07:49 [place] % (Auto) 10.6 % (0.0-7.3) H 03/08/19 07:49 Eos % (Auto) 9.1 % (0.0-4.3) H 03/08/19 07:49 Baso % (Auto) 0.6 % (0.0-1.8) 03/08/19 07:49 Lymph # 1.3 K/mm3 (1.2-5.4) 03/08/19 07:49 [place] # 0.7 K/mm3 (0.0-0.8) 03/08/19 07:49 Eos # 0.6 K/mm3 (0.0-0.4) H 03/08/19 07:49 Baso # 0.0 K/mm3 (0.0-0.1) 03/08/19 07:49 Seg Neutrophils % 60.7 % (40.0-70.0) 03/08/19 07:49 Seg Neutrophils # 4.1 K/mm3 (1.8-7.7) 03/08/19 07:49 Sodium 138 mmol/L (137-145) 03/11/19 04:34 Potassium 4.1 mmol/L (3.6-5.0) 03/11/19 04:34 Chloride 98.4 mmol/L (98-107) 03/11/19 04:34 Carbon Dioxide 23 mmol/L (22-30) 03/11/19 04:34 Anion Gap 21 mmol/L 03/11/19 04:34 BUN 33 mg/dL (9-20) H 03/11/19 04:34 Creatinine 6.7 mg/dL (0.8-1.5) H 03/11/19 04:34 Estimated GFR 10 ml/min 03/11/19 04:34 BUN/Creatinine Ratio 5 % 03/11/19 04:34 Glucose 100 mg/dL (75-100) 03/11/19 04:34 POC Glucose 183 (70-105) H 03/15/19 11:20 Calcium 9.4 mg/dL (8.4-10.2) 03/11/19 04:34 Phosphorus 5.00 mg/dL (2.5-4.5) H 03/08/19 07:49 Magnesium 2.00 mg/dL (1.7-2.3) 03/08/19 07:49 Total Bilirubin 0.30 mg/dL (0.1-1.2) 03/08/19 07:49 AST 14 units/L (5-40) 03/08/19 07:49 ALT 10 units/L (7-56) 03/08/19 07:49 Alkaline Phosphatase 59 units/L (35-129) 03/08/19 07:49 Total Protein 7.1 g/dL (6.3-8.2) 03/08/19 07:49 Albumin 3.2 g/dL (3.9-5) L 03/08/19 07:49 Albumin/Globulin Ratio 0.8 % 03/08/19 07:49 Hepatitis A IgM Ab Non-reactive (NonReactive) 03/22/19 11:20 Hep Bs Antigen Non-reactive (Negative) 03/22/19 11:20 Hep B Core IgM Ab Non-reactive (NonReactive) 03/22/19 11:20 Hepatitis C Antibody Non-reactive (NonReactive) 03/22/19 11:20 Active Medications - Current Medications Current Medications: Generic Name Dose Route Start Last Admin Trade Name Freq PRN Reason Stop Dose Admin Acetaminophen 650 mg 03/01/19 22:17 Tylenol PO Q4H PRN Pain MILD(1-3)/Fever >100.5/QUAN Amlodipine Besylate 10 mg 03/02/19 10:00 03/22/19 10:51 Amlodipine PO 10 mg QDAY ENOC Administration Aripiprazole 5 mg 03/02/19 10:00 03/22/19 10:49 Aripiprazole PO 5 mg QDAY ENOC Administration Enoxaparin Sodium 30 mg 03/02/19 10:00 03/22/19 10:52 Enoxaparin SUB-Q 30 mg QDAY ENOC Administration Epoetin Polo 10,000 unit 03/02/19 08:31 03/22/19 15:00 Procrit IV 10,000 unit LOKESH PRN Administration hemodialysis Heparin Sodium (Porcine) 1,000 unit 03/02/19 08:31 03/15/19 10:28 Heparin 10,000 Units/10 Ml IV 1,000 unit LOKESH PRN Administration hemodialysis Heparin Sodium (Porcine) 5,000 unit 03/02/19 08:31 03/15/19 14:21 Heparin IV 5,000 unit LOKESH PRN Administration hemodialysis Sodium Chloride 100 mls @ 999 mls/hr 03/10/19 08:08 Nacl 0.9% IV LOKESH PRN Hypotension Ondansetron HCl 4 mg 03/01/19 22:17 Zofran IV Q8H PRN Nausea And Vomiting Pantoprazole Sodium 40 mg 03/02/19 10:00 03/22/19 10:49 Protonix PO 40 mg QDAY ENOC Administration Sodium Chloride 10 ml 03/02/19 10:00 03/22/19 10:51 Sodium Chloride Flush Syringe 10 Ml IV 10 ml BID ENOC Administration Sodium Chloride 10 ml 03/01/19 22:17 Sodium Chloride Flush Syringe 10 Ml IV PRN PRN LINE FLUSH Nutrition/Malnutrition Assess - Dietary Evaluation Nutrition/Malnutrition Findings: Nutrition Notes Start: 03/02/19 09:43 Freq: Status: Active Protocol: Document 03/20/19 14:47 OH (Rec: 03/20/19 14:53 OH [id number]) Nutrition Notes Initial or Follow up Reassessment Current Diagnosis CKD (stage V CKD),Hypertension Other Pertinent Diagnosis hematochezia Current Diet renal diet with Nepro BID Labs/Tests cr 6.7 glu 183 Pertinent Medications Reviewed Height 5 ft 6 in Weight 54.1 kg [place] Body Weight (kg) 64.54 BMI 19.2 Weight change and time frame Wt noted to be downward trending. Subjective/Other Information Difficulty w/placement for dialysis. Pt. eating/drinking appropriately to maintain nutritional status wnl. Percent of energy/protein needs met: 100/100% Burn Absent Trauma Absent GI Symptoms None Food Allergy No Current % PO Good (75-100%) Minimum of two criteria Yes Interpretation of Weight Loss (severe) >2% in 1 week Muscle Mass Mild Depletion (non-severe) #1 Nutrition Diagnosis Malnutrition Diagnosis Progress(for reassessment Continues documentation) Is patient on ventilator? No Is Patient Ambulatory and/or Out of Bed No REE-([facility]-confined to bed) [phone] [facility] Additional Notes Protein needs: >67 g (>1.2g/ kg) Fluid needs: 1000 - 1500 mL Nutrition Intervention Change Diet Order: continue renal diet Add Supplement/Snack (indicate name/kcal Nepro BID /protein ) Provides kCal: 850 Provides Protein (gm) 38 Goal #1 continue to meet at least 80% of dietary needs Anticipated Discharge Needs: Renal diet, w/ Nepro Supplement BID Follow-Up By: 03/27/19 Additional Comments Follow for diet tolerance/ONS
--- NOTE | 2019-03-23 08:54 | Discharge Summary ---
Providers - Providers Date of Admission: 03/07/19 08:44 Attending physician: HARDEEP AHSER MD 03/01/19 20:31 Consult to Physician [CONS] Stat Comment: Dr. Solis spoke with Dr. Mayers @ 2025 Consulting Provider: JANICE MAYERS Physician Instructions: Reason For Exam: needing dialysis 03/04/19 10:28 Consult to Case Management [CONS] Routine Services Needed at Discharge: Other Notified:: copy left for CM Comment:: arrange hemodialysis at [facility] Primary care physician: STOVE FITTER Hospitalization Condition: Stable Hospital course: Patient is 58-year-old man history of hypertension, schizophrenia, bipolar, subarachnoid hemorrhage, status post frontal craniotomy with aneurysmal clip, end-stage renal disease on dialysis was sent from [facility] because he did not have dialysis since he was discharged on Wednesday. He was discharged on Wednesday after prolonged stay. Was [facility] that [facility]he has no complaints, very poor historian. Patient is able to speak but often choses not to He previously was ambulatory but admitted last time with left sided weakness Patient stay was prolonged due to placement issues He remained clinically stable, was treated for seizures and placed on keppra, baclofen discontinued Bp meds were adjusted due hypotension He was discharged after a dialysis place was established but returns because the dialysis centers medical transport specialist declined to now accept him Hydralazine stopped * After 16 days, patient finally got another dialysis place, he will be returing to [facility] rehab End-stage renal disease -Nephrology consulted -Avoid nephrotoxic agents -Renally dose all meds -Nephrology initiated hemdialysis on 02/17 H/O schizophrenia and bipolar - Abilify 5 mg PO daily, psych following -Hx Hypertension -BP uncontrolled. Continue to adjust medications as needed Hx Right subarachnoid hemorrhage, status post right frontal craniotomy Hx aneurysm, status post clipping -Continue supportive care -Neurology recommended outpatient follow Tobacco abuse -Current every day smoker -Counseled for cessation -Nicotine patch when necessary Moderate Protein Calorie Malnutrition Continue to encourage PO intake Thrombocytopenia. - cont to Monitor dvt/gi prophy Discharge once dialysis center obtained city manager is now arranging for placement No family at bedside today. No clinical change in documented at this time Disposition: DC/TX-03 [facility] Time spent for discharge: 35 mins Core Measure Documentation - Palliative Care Palliative Care/ Comfort Measures: Not Applicable - Core Measures Any of the following diagnoses?: none Exam - Physical Exam Narrative exam: Gen: thin frail NAD, Awake, Alert, Orientated x 2, lying in bed comfortably HEENT: old right skull deformity, EOMI, PERRL, OP Clear Neck: supple, no adenopathy, no thyromegaly, no JVD CVS/Heart: RRR, normal S1S2, pulses present bilaterally Chest/Lungs: CTA B, Symmetrical chest expansion, good air entry bilaterally GI/Abdomen: soft, NTND, good bowel sounds, no guarding or rebound /Bladder: no suprapubic tenderness, no CVA or paraspinal tenderness Extermity/Skin: no c/c/e, no obvious rash MSK: FROM x 4 Neuro: CN 2-12 grossly intact, no new focal deficits Psych: calm - Constitutional Vitals: Temp Pulse Resp BP Pulse Ox 98.6 F 113 H 18 118/87 98 03/23/19 05:16 03/23/19 05:16 03/23/19 05:16 03/23/19 05:16 03/23/19 05:16 Plan Activity: advance as tolerated Diet: low fat, renal Special Instructions: record daily weights, record daily BP diary Follow up with: ROBERT BOYD MD [Primary Care Provider] - 7 Days JU MERCER MD [Staff Physician] - 7 Days
[2019-03-23] MEDS: ENOXAPARIN 30 MG/0.3 ML INJ SUB-Q SCH (09:31)
[2019-03-23] MEDS: amLODIPine 10 MG TAB PO SCH (09:31)
[2019-03-23] MEDS: ARIPiprazole 5 MG TAB PO SCH (09:32)
[2019-03-23] MEDS: PANTOPRAZOLE 40 MG TAB PO SCH (09:32)
--- NOTE | 2019-03-23 13:32 | Progress Note ---
Assessment and Plan - Patient Problems (1) End-stage renal disease needing dialysis Current Visit: Yes Status: Chronic Plan to address problem: Continue HD on TTS schedule. outpatient HD arrangement as per case management . (2) Hypertension associated with stage 5 chronic kidney disease due to type 2 diabetes mellitus Current Visit: Yes Status: Chronic Plan to address problem: Follow-up blood pressure on current medications (3) Anemia Current Visit: No Status: Acute Plan to address problem: cont EPO with HD (4) Schizoaffective disorder Current Visit: No Status: Chronic Plan to address problem: follow psychiatry recommendations Subjective Date of service: 03/23/19 Principal diagnosis: ESRD, schizophrenia, malnutrition, was of the opinion Interval history: pt awake, alert in no acute distress. Objective - Vital Signs Vital signs: Vital Signs - 12hr 03/23/19 03/23/19 03/23/19 05:16 09:27 09:31 Temperature 98.6 F Pulse Rate 113 H 106 H Respiratory 18 Rate Blood Pressure 118/87 110/71 110/71 O2 Sat by Pulse 98 Oximetry 03/23/19 11:43 Temperature 99.5 F Pulse Rate 121 H Respiratory 16 Rate Blood Pressure 118/86 O2 Sat by Pulse 96 Oximetry - General Appearance General appearance: well-developed, well-nourished, appears stated age EENT: ATNC, PERRL, mucous membranes moist Neck: no JVD Respiratory: Present: Clear to Ascultation Cardiology: regular, S1S2 Gastrointestinal: normoactive bowel sounds Integumentary: no rash, other (no edema ) Neurologic: no focal deficit, alert and oriented x3, strength 5/5, CN 3-12 intact Psychiatric: mood/affect appropriate, cooperative - Lab 03/11/19 04:34 03/11/19 04:34 Most recent lab results Calcium 9.4 mg/dL (8.4-10.2) 03/11/19 04:34 Phosphorus 5.00 mg/dL (2.5-4.5) H 03/08/19 07:49 Magnesium 2.00 mg/dL (1.7-2.3) 03/08/19 07:49 Medications & Allergies - Medications Allergies/Adverse Reactions: Allergies No Known Allergies Allergy (Unverified 04/17/17 13:03) Home Medications: Home Medications Medication Instructions Recorded Confirmed Last Taken Type ARIPiprazole 5 mg PO QDAY #30 tablet 02/27/19 03/01/19 Unknown Rx Pantoprazole [Protonix TAB] 40 mg PO QDAY #30 tablet 02/27/19 03/01/19 Unknown Rx amLODIPine 10 mg PO QDAY #30 tablet 02/27/19 03/01/19 Unknown Rx hydrALAZINE [Apresoline TAB] 50 mg PO TID #90 tab 02/27/19 03/01/19 Unknown Rx Active Medications: Generic Name Dose Route Start Last Admin Trade Name Freq PRN Reason Stop Dose Admin Acetaminophen 650 mg 03/01/19 22:17 Tylenol PO Q4H PRN Pain MILD(1-3)/Fever >100.5/QUAN Amlodipine Besylate 10 mg 03/02/19 10:00 03/23/19 09:31 Amlodipine PO 10 mg QDAY ENOC Administration Aripiprazole 5 mg 03/02/19 10:00 03/23/19 09:32 Aripiprazole PO 5 mg QDAY ENOC Administration Enoxaparin Sodium 30 mg 03/02/19 10:00 03/23/19 09:31 Enoxaparin SUB-Q 30 mg QDAY ENOC Administration Epoetin Polo 10,000 unit 03/02/19 08:31 03/22/19 15:00 Procrit IV 10,000 unit LOKESH PRN Administration hemodialysis Heparin Sodium (Porcine) 1,000 unit 03/02/19 08:31 03/15/19 10:28 Heparin 10,000 Units/10 Ml IV 1,000 unit LOKESH PRN Administration hemodialysis Heparin Sodium (Porcine) 5,000 unit 03/02/19 08:31 03/15/19 14:21 Heparin IV 5,000 unit LOKESH PRN Administration hemodialysis Sodium Chloride 100 mls @ 999 mls/hr 03/10/19 08:08 Nacl 0.9% IV LOKESH PRN Hypotension Ondansetron HCl 4 mg 03/01/19 22:17 Zofran IV Q8H PRN Nausea And Vomiting Pantoprazole Sodium 40 mg 03/02/19 10:00 03/23/19 09:32 Protonix PO 40 mg QDAY ENOC Administration Sodium Chloride 10 ml 03/02/19 10:00 03/23/19 09:33 Sodium Chloride Flush Syringe 10 Ml IV 10 ml BID ENOC Administration Sodium Chloride 10 ml 03/01/19 22:17 Sodium Chloride Flush Syringe 10 Ml IV PRN PRN LINE FLUSH
--- NOTE | 2019-03-23 18:35 | Progress Note ---
Assessment and Plan Assessment and plan: Patient is 58-year-old man history of hypertension, schizophrenia, bipolar, subarachnoid hemorrhage, status post frontal craniotomy with aneurysmal clip, end-stage renal disease on dialysis was sent from [facility] because he did not have dialysis since he was discharged on Wednesday. He was discharged on Wednesday after prolonged stay. Was reported that he was denied by [facility] dialysis.he has no complaints, very poor historian. Patient is able to speak but often choses not to He previously was ambulatory but admitted last time with left sided weakness Patient stay was prolonged due to placement issues He remained clinically stable, was treated for seizures and placed on keppra, baclofen discontinued Bp meds were adjusted due hypotension He was discharged after a dialysis place was established but returns because the dialysis centers medical videographer declined to now accept him Hydralazine stopped End-stage renal disease -Nephrology consulted -Avoid nephrotoxic agents -Renally dose all meds -Nephrology initiated hemdialysis on 12/6 H/O schizophrenia and bipolar - Abilify 5 mg PO daily, psych following -Hx Hypertension -BP uncontrolled. Continue to adjust medications as needed Hx Right subarachnoid hemorrhage, status post right frontal craniotomy Hx aneurysm, status post clipping -Continue supportive care -Neurology recommended outpatient follow Tobacco abuse -Current every day smoker -Counseled for cessation -Nicotine patch when necessary Moderate Protein Calorie Malnutrition Continue to encourage PO intake Thrombocytopenia. - cont to Monitor dvt/gi prophy Discharge once dialysis center obtained manager rn is now arranging for placement No family at bedside today. No clinical change in documented at this time History Interval history: Patient seen and examined remained stable no acute distress reported at this time. NO Adverse event reported to me overnight Hospitalist Physical - Physical exam Narrative exam: Gen: thin frail NAD, Awake, Alert, Orientated x 2, lying in bed comfortably HEENT: old right skull deformity, EOMI, PERRL, OP Clear Neck: supple, no adenopathy, no thyromegaly, no JVD CVS/Heart: RRR, normal S1S2, pulses present bilaterally Chest/Lungs: CTA B, Symmetrical chest expansion, good air entry bilaterally GI/Abdomen: soft, NTND, good bowel sounds, no guarding or rebound /Bladder: no suprapubic tenderness, no CVA or paraspinal tenderness Extermity/Skin: no c/c/e, no obvious rash MSK: FROM x 4 Neuro: CN 2-12 grossly intact, no new focal deficits Psych: calm - Constitutional Vitals: Temp Pulse Resp BP Pulse Ox 99.5 F 113 H 18 113/87 98 03/23/19 17:00 03/23/19 17:00 03/23/19 17:00 03/23/19 17:00 03/23/19 17:00 Results - Labs CBC & Chem 7: 03/11/19 04:34 03/11/19 04:34 Labs: Laboratory Last Values WBC 7.2 K/mm3 (4.5-11.0) 03/11/19 04:34 RBC 3.63 M/mm3 (3.65-5.03) L 03/11/19 04:34 Hgb 10.2 gm/dl (11.8-15.2) L 03/11/19 04:34 Hct 32.0 % (35.5-45.6) L 03/11/19 04:34 MCV 88 fl (84-94) 03/11/19 04:34 MCH 28 pg (28-32) 03/11/19 04:34 MCHC 32 % (32-34) 03/11/19 04:34 RDW 13.3 % (13.2-15.2) 03/11/19 04:34 Plt Count 185 K/mm3 (140-440) 03/11/19 04:34 Lymph % (Auto) 19.0 % (13.4-35.0) 03/08/19 07:49 [place] % (Auto) 10.6 % (0.0-7.3) H 03/08/19 07:49 Eos % (Auto) 9.1 % (0.0-4.3) H 03/08/19 07:49 Baso % (Auto) 0.6 % (0.0-1.8) 03/08/19 07:49 Lymph # 1.3 K/mm3 (1.2-5.4) 03/08/19 07:49 [place] # 0.7 K/mm3 (0.0-0.8) 03/08/19 07:49 Eos # 0.6 K/mm3 (0.0-0.4) H 03/08/19 07:49 Baso # 0.0 K/mm3 (0.0-0.1) 03/08/19 07:49 Seg Neutrophils % 60.7 % (40.0-70.0) 03/08/19 07:49 Seg Neutrophils # 4.1 K/mm3 (1.8-7.7) 03/08/19 07:49 Sodium 138 mmol/L (137-145) 03/11/19 04:34 Potassium 4.1 mmol/L (3.6-5.0) 03/11/19 04:34 Chloride 98.4 mmol/L (98-107) 03/11/19 04:34 Carbon Dioxide 23 mmol/L (22-30) 03/11/19 04:34 Anion Gap 21 mmol/L 03/11/19 04:34 BUN 33 mg/dL (9-20) H 03/11/19 04:34 Creatinine 6.7 mg/dL (0.8-1.5) H 03/11/19 04:34 Estimated GFR 10 ml/min 03/11/19 04:34 BUN/Creatinine Ratio 5 % 03/11/19 04:34 Glucose 100 mg/dL (75-100) 03/11/19 04:34 POC Glucose 183 (70-105) H 03/15/19 11:20 Calcium 9.4 mg/dL (8.4-10.2) 03/11/19 04:34 Phosphorus 5.00 mg/dL (2.5-4.5) H 03/08/19 07:49 Magnesium 2.00 mg/dL (1.7-2.3) 03/08/19 07:49 Total Bilirubin 0.30 mg/dL (0.1-1.2) 03/08/19 07:49 AST 14 units/L (5-40) 03/08/19 07:49 ALT 10 units/L (7-56) 03/08/19 07:49 Alkaline Phosphatase 59 units/L (35-129) 03/08/19 07:49 Total Protein 7.1 g/dL (6.3-8.2) 03/08/19 07:49 Albumin 3.2 g/dL (3.9-5) L 03/08/19 07:49 Albumin/Globulin Ratio 0.8 % 03/08/19 07:49 Hepatitis A IgM Ab Non-reactive (NonReactive) 03/22/19 11:20 Hep Bs Antigen Non-reactive (Negative) 03/22/19 11:20 Hep B Core IgM Ab Non-reactive (NonReactive) 03/22/19 11:20 Hepatitis C Antibody Non-reactive (NonReactive) 03/22/19 11:20 Active Medications - Current Medications Current Medications: Generic Name Dose Route Start Last Admin Trade Name Freq PRN Reason Stop Dose Admin Acetaminophen 650 mg 03/01/19 22:17 Tylenol PO Q4H PRN Pain MILD(1-3)/Fever >100.5/QUAN Amlodipine Besylate 10 mg 03/02/19 10:00 03/23/19 09:31 Amlodipine PO 10 mg QDAY ENOC Administration Aripiprazole 5 mg 03/02/19 10:00 03/23/19 09:32 Aripiprazole PO 5 mg QDAY ENOC Administration Enoxaparin Sodium 30 mg 03/02/19 10:00 03/23/19 09:31 Enoxaparin SUB-Q 30 mg QDAY ENOC Administration Epoetin Polo 10,000 unit 03/02/19 08:31 03/22/19 15:00 Procrit IV 10,000 unit LOKESH PRN Administration hemodialysis Heparin Sodium (Porcine) 1,000 unit 03/02/19 08:31 03/15/19 10:28 Heparin 10,000 Units/10 Ml IV 1,000 unit LOKESH PRN Administration hemodialysis Heparin Sodium (Porcine) 5,000 unit 03/02/19 08:31 03/15/19 14:21 Heparin IV 5,000 unit LOKESH PRN Administration hemodialysis Sodium Chloride 100 mls @ 999 mls/hr 03/10/19 08:08 Nacl 0.9% IV LOKESH PRN Hypotension Ondansetron HCl 4 mg 03/01/19 22:17 Zofran IV Q8H PRN Nausea And Vomiting Pantoprazole Sodium 40 mg 03/02/19 10:00 03/23/19 09:32 Protonix PO 40 mg QDAY ENOC Administration Sodium Chloride 10 ml 03/02/19 10:00 03/23/19 09:33 Sodium Chloride Flush Syringe 10 Ml IV 10 ml BID ENOC Administration Sodium Chloride 10 ml 03/01/19 22:17 Sodium Chloride Flush Syringe 10 Ml IV PRN PRN LINE FLUSH Nutrition/Malnutrition Assess - Dietary Evaluation Nutrition/Malnutrition Findings: Nutrition Notes Start: 03/02/19 09:43 Freq: Status: Active Protocol: Document 03/20/19 14:47 OH (Rec: 03/20/19 14:53 OH [id number]) Nutrition Notes Initial or Follow up Reassessment Current Diagnosis CKD (stage V CKD),Hypertension Other Pertinent Diagnosis hematochezia Current Diet renal diet with Nepro BID Labs/Tests cr 6.7 glu 183 Pertinent Medications Reviewed Height 5 ft 6 in Weight 54.1 kg [place] Body Weight (kg) 64.54 BMI 19.2 Weight change and time frame Wt noted to be downward trending. Subjective/Other Information Difficulty w/placement for dialysis. Pt. eating/drinking appropriately to maintain nutritional status wnl. Percent of energy/protein needs met: 100/100% Burn Absent Trauma Absent GI Symptoms None Food Allergy No Current % PO Good (75-100%) Minimum of two criteria Yes Interpretation of Weight Loss (severe) >2% in 1 week Muscle Mass Mild Depletion (non-severe) #1 Nutrition Diagnosis Malnutrition Diagnosis Progress(for reassessment Continues documentation) Is patient on ventilator? No Is Patient Ambulatory and/or Out of Bed No REE-([place]-St. Jeor-confined to bed) 1563.516 Calculation Used for Recommendations [facility] Additional Notes Protein needs: >67 g (>1.2g/ kg) Fluid needs: 1000 - 1500 mL Nutrition Intervention Change Diet Order: continue renal diet Add Supplement/Snack (indicate name/kcal Nepro BID /protein ) Provides kCal: 850 Provides Protein (gm) 38 Goal #1 continue to meet at least 80% of dietary needs Anticipated Discharge Needs: Renal diet, w/ Nepro Supplement BID Follow-Up By: 03/27/19 Additional Comments Follow for diet tolerance/ONS
--- NOTE | 2019-03-24 10:16 | Progress Note ---
Assessment and Plan - Patient Problems (1) End-stage renal disease needing dialysis Current Visit: Yes Status: Chronic Plan to address problem: pt with significant tachycardia, with HR > 130s, will check EKG/CXR. Will resume HD once HR has stabilized. (2) Hypertension associated with stage 5 chronic kidney disease due to type 2 diabetes mellitus Current Visit: Yes Status: Chronic Plan to address problem: Follow-up blood pressure on current medications (3) Anemia Current Visit: No Status: Acute Plan to address problem: cont EPO with HD (4) Schizoaffective disorder Current Visit: No Status: Chronic Plan to address problem: follow psychiatry recommendations Subjective Date of service: 03/24/19 Principal diagnosis: ESRD, schizophrenia, malnutrition, was of the opinion Interval history: pt awake, alert in no acute distress. Objective - Vital Signs Vital signs: Vital Signs - 12hr 03/23/19 03/23/19 03/24/19 22:40 22:41 01:51 Temperature 98.3 F Pulse Rate 97 H 96 H Pulse Rate [ 97 H Left Radial] Respiratory 17 20 Rate Blood Pressure 114/85 O2 Sat by Pulse 100 100 Oximetry 03/24/19 05:16 Temperature 99.1 F Pulse Rate 129 H Pulse Rate [ Left Radial] Respiratory 18 Rate Blood Pressure 141/105 O2 Sat by Pulse 99 Oximetry - General Appearance General appearance: well-developed, well-nourished, appears stated age EENT: ATNC, PERRL, mucous membranes moist Neck: no JVD Respiratory: Present: Clear to Ascultation Cardiology: regular, tachycardia, S1S2 Gastrointestinal: normoactive bowel sounds Integumentary: no rash, other (no edema ) Neurologic: no focal deficit, alert and oriented x3, strength 5/5, CN 3-12 intact Psychiatric: mood/affect appropriate, cooperative - Lab 03/11/19 04:34 03/11/19 04:34 Most recent lab results Calcium 9.4 mg/dL (8.4-10.2) 03/11/19 04:34 Phosphorus 5.00 mg/dL (2.5-4.5) H 03/08/19 07:49 Magnesium 2.00 mg/dL (1.7-2.3) 03/08/19 07:49 Medications & Allergies - Medications Allergies/Adverse Reactions: Allergies No Known Allergies Allergy (Unverified 04/17/17 13:03) Home Medications: Home Medications Medication Instructions Recorded Confirmed Last Taken Type ARIPiprazole 5 mg PO QDAY #30 tablet 02/27/19 03/01/19 Unknown Rx Pantoprazole [Protonix TAB] 40 mg PO QDAY #30 tablet 02/27/19 03/01/19 Unknown Rx amLODIPine 10 mg PO QDAY #30 tablet 02/27/19 03/01/19 Unknown Rx hydrALAZINE [Apresoline TAB] 50 mg PO TID #90 tab 02/27/19 03/01/19 Unknown Rx Active Medications: Generic Name Dose Route Start Last Admin Trade Name Freq PRN Reason Stop Dose Admin Acetaminophen 650 mg 03/01/19 22:17 Tylenol PO Q4H PRN Pain MILD(1-3)/Fever >100.5/QUAN Amlodipine Besylate 10 mg 03/02/19 10:00 03/23/19 09:31 Amlodipine PO 10 mg QDAY ENOC Administration Aripiprazole 5 mg 03/02/19 10:00 03/23/19 09:32 Aripiprazole PO 5 mg QDAY ENOC Administration Atenolol 25 mg 03/24/19 10:00 Tenormin PO QDAY ENOC Enoxaparin Sodium 30 mg 03/02/19 10:00 03/23/19 09:31 Enoxaparin SUB-Q 30 mg QDAY ENOC Administration Epoetin Polo 10,000 unit 03/02/19 08:31 03/22/19 15:00 Procrit IV 10,000 unit LOKESH PRN Administration hemodialysis Heparin Sodium (Porcine) 1,000 unit 03/02/19 08:31 03/15/19 10:28 Heparin 10,000 Units/10 Ml IV 1,000 unit LOKESH PRN Administration hemodialysis Heparin Sodium (Porcine) 5,000 unit 03/02/19 08:31 03/15/19 14:21 Heparin IV 5,000 unit LOKESH PRN Administration hemodialysis Sodium Chloride 100 mls @ 999 mls/hr 03/10/19 08:08 Nacl 0.9% IV LOKESH PRN Hypotension Ondansetron HCl 4 mg 03/01/19 22:17 Zofran IV Q8H PRN Nausea And Vomiting Pantoprazole Sodium 40 mg 03/02/19 10:00 03/23/19 09:32 Protonix PO 40 mg QDAY ENOC Administration Sodium Chloride 10 ml 03/02/19 10:00 03/23/19 22:11 Sodium Chloride Flush Syringe 10 Ml IV 10 ml BID ENOC Administration Sodium Chloride 10 ml 03/01/19 22:17 Sodium Chloride Flush Syringe 10 Ml IV PRN PRN LINE FLUSH
[2019-03-24] MEDS: PANTOPRAZOLE 40 MG TAB PO SCH (10:33)
[2019-03-24] MEDS: ENOXAPARIN 30 MG/0.3 ML INJ SUB-Q SCH (10:33)
[2019-03-24] MEDS: amLODIPine 10 MG TAB PO SCH (10:34)
[2019-03-24] MEDS: ARIPiprazole 5 MG TAB PO SCH (10:34)
[2019-03-24] MEDS: atenoloL 25 MG TAB PO SCH (10:34)
--- NOTE | 2019-03-24 11:13 | XRay Report ---
CHEST 1 VIEW INDICATION: Shortness of breath. COMPARISON: 03/01/2019 FINDINGS: Support devices: Unchanged. Heart: Stable. Lungs/Pleura: No acute pulmonary or pleural findings. IMPRESSION: 1. No acute findings. Signer Name: Gallo Mazariegos MD Signed: 03/24/2019 11:08 AM Workstation Name: [id number]
--- NOTE | 2019-03-24 14:31 | Progress Note ---
Assessment and Plan Assessment and plan: Patient is 58-year-old man history of hypertension, schizophrenia, bipolar, subarachnoid hemorrhage, status post frontal craniotomy with aneurysmal clip, end-stage renal disease on dialysis was sent from [facility] because he did not have dialysis since he was discharged on Wednesday. He was discharged on Wednesday after prolonged stay. Was reported that he was denied by [facility] dialysis.he has no complaints, very poor historian. Patient is able to speak but often choses not to He previously was ambulatory but admitted last time with left sided weakness Patient stay was prolonged due to placement issues He remained clinically stable, was treated for seizures and placed on keppra, baclofen discontinued Bp meds were adjusted due hypotension He was discharged after a dialysis place was established but returns because the dialysis centers medical imaging director declined to now accept him Hydralazine stopped cxr with no abnormality Tachycardia -Sinus on EKG -Started on Atenolol, also helps with the BP End-stage renal disease -Nephrology consulted -Avoid nephrotoxic agents -Renally dose all meds -Nephrology initiated hemdialysis on 12/ H/O schizophrenia and bipolar - Abilify 5 mg PO daily, psych following -Hx Hypertension -BP uncontrolled. Continue to adjust medications as needed Hx Right subarachnoid hemorrhage, status post right frontal craniotomy Hx aneurysm, status post clipping -Continue supportive care -Neurology recommended outpatient follow Tobacco abuse -Current every day smoker -Counseled for cessation -Nicotine patch when necessary Moderate Protein Calorie Malnutrition Continue to encourage PO intake Thrombocytopenia. - cont to Monitor dvt/gi prophy Discharge once dialysis center obtained medical practice manager is now arranging for placement No family at bedside today. No clinical change in documented at this time History Interval history: Patient seen and examined remained stable no acute distress reported at this time. increased HR this am, no inciting factors, no complaints by the patient Hospitalist Physical - Physical exam Narrative exam: Gen: thin frail NAD, Awake, Alert, Orientated x 2, lying in bed comfortably, warm to touch HEENT: old right skull deformity, EOMI, PERRL, OP Clear Neck: supple, no adenopathy, no thyromegaly, no JVD CVS/Heart: RR,tachyc normal S1S2, pulses present bilaterally Chest/Lungs: CTA B, Symmetrical chest expansion, good air entry bilaterally GI/Abdomen: soft, NTND, good bowel sounds, no guarding or rebound /Bladder: no suprapubic tenderness, no CVA or paraspinal tenderness Extermity/Skin: no c/c/e, no obvious rash MSK: FROM x 4 Neuro: CN 2-12 grossly intact, no new focal deficits Psych: calm - Constitutional Vitals: Temp Pulse Resp BP Pulse Ox 99.0 F 75 20 145/91 99 03/24/19 11:59 03/24/19 11:59 03/24/19 11:59 03/24/19 11:59 03/24/19 11:59 Results - Labs CBC & Chem 7: 03/11/19 04:34 03/11/19 04:34 Labs: Laboratory Last Values WBC 7.2 K/mm3 (4.5-11.0) 03/11/19 04:34 RBC 3.63 M/mm3 (3.65-5.03) L 03/11/19 04:34 Hgb 10.2 gm/dl (11.8-15.2) L 03/11/19 04:34 Hct 32.0 % (35.5-45.6) L 03/11/19 04:34 MCV 88 fl (84-94) 03/11/19 04:34 MCH 28 pg (28-32) 03/11/19 04:34 MCHC 32 % (32-34) 03/11/19 04:34 RDW 13.3 % (13.2-15.2) 03/11/19 04:34 Plt Count 185 K/mm3 (140-440) 03/11/19 04:34 Lymph % (Auto) 19.0 % (13.4-35.0) 03/08/19 07:49 [place] % (Auto) 10.6 % (0.0-7.3) H 03/08/19 07:49 Eos % (Auto) 9.1 % (0.0-4.3) H 03/08/19 07:49 Baso % (Auto) 0.6 % (0.0-1.8) 03/08/19 07:49 Lymph # 1.3 K/mm3 (1.2-5.4) 03/08/19 07:49 [place] # 0.7 K/mm3 (0.0-0.8) 03/08/19 07:49 Eos # 0.6 K/mm3 (0.0-0.4) H 03/08/19 07:49 Baso # 0.0 K/mm3 (0.0-0.1) 03/08/19 07:49 Seg Neutrophils % 60.7 % (40.0-70.0) 03/08/19 07:49 Seg Neutrophils # 4.1 K/mm3 (1.8-7.7) 03/08/19 07:49 Sodium 138 mmol/L (137-145) 03/11/19 04:34 Potassium 4.1 mmol/L (3.6-5.0) 03/11/19 04:34 Chloride 98.4 mmol/L (98-107) 03/11/19 04:34 Carbon Dioxide 23 mmol/L (22-30) 03/11/19 04:34 Anion Gap 21 mmol/L 03/11/19 04:34 BUN 33 mg/dL (9-20) H 03/11/19 04:34 Creatinine 6.7 mg/dL (0.8-1.5) H 03/11/19 04:34 Estimated GFR 10 ml/min 03/11/19 04:34 BUN/Creatinine Ratio 5 % 03/11/19 04:34 Glucose 100 mg/dL (75-100) 03/11/19 04:34 POC Glucose 183 (70-105) H 03/15/19 11:20 Calcium 9.4 mg/dL (8.4-10.2) 03/11/19 04:34 Phosphorus 5.00 mg/dL (2.5-4.5) H 03/08/19 07:49 Magnesium 2.00 mg/dL (1.7-2.3) 03/08/19 07:49 Total Bilirubin 0.30 mg/dL (0.1-1.2) 03/08/19 07:49 AST 14 units/L (5-40) 03/08/19 07:49 ALT 10 units/L (7-56) 03/08/19 07:49 Alkaline Phosphatase 59 units/L (35-129) 03/08/19 07:49 Total Protein 7.1 g/dL (6.3-8.2) 03/08/19 07:49 Albumin 3.2 g/dL (3.9-5) L 03/08/19 07:49 Albumin/Globulin Ratio 0.8 % 03/08/19 07:49 Hepatitis A IgM Ab Non-reactive (NonReactive) 03/22/19 11:20 Hep Bs Antigen Non-reactive (Negative) 03/22/19 11:20 Hep B Core IgM Ab Non-reactive (NonReactive) 03/22/19 11:20 Hepatitis C Antibody Non-reactive (NonReactive) 03/22/19 11:20 Active Medications - Current Medications Current Medications: Generic Name Dose Route Start Last Admin Trade Name Freq PRN Reason Stop Dose Admin Acetaminophen 650 mg 03/01/19 22:17 Tylenol PO Q4H PRN Pain MILD(1-3)/Fever >100.5/QUAN Amlodipine Besylate 10 mg 03/02/19 10:00 03/24/19 10:34 Amlodipine PO 10 mg QDAY ENOC Administration Aripiprazole 5 mg 03/02/19 10:00 03/24/19 10:34 Aripiprazole PO 5 mg QDAY ENOC Administration Atenolol 25 mg 03/24/19 10:00 03/24/19 10:34 Tenormin PO 25 mg QDAY ENOC Administration Enoxaparin Sodium 30 mg 03/02/19 10:00 03/24/19 10:33 Enoxaparin SUB-Q 30 mg QDAY ENOC Administration Epoetin Polo 10,000 unit 03/02/19 08:31 03/22/19 15:00 Procrit IV 10,000 unit LOKESH PRN Administration hemodialysis Heparin Sodium (Porcine) 1,000 unit 03/02/19 08:31 03/15/19 10:28 Heparin 10,000 Units/10 Ml IV 1,000 unit LOKESH PRN Administration hemodialysis Heparin Sodium (Porcine) 5,000 unit 03/02/19 08:31 03/15/19 14:21 Heparin IV 5,000 unit LOKESH PRN Administration hemodialysis Sodium Chloride 100 mls @ 999 mls/hr 03/10/19 08:08 Nacl 0.9% IV LOKESH PRN Hypotension Ondansetron HCl 4 mg 03/01/19 22:17 Zofran IV Q8H PRN Nausea And Vomiting Pantoprazole Sodium 40 mg 03/02/19 10:00 03/24/19 10:33 Protonix PO 40 mg QDAY ENOC Administration Sodium Chloride 10 ml 03/02/19 10:00 03/24/19 10:34 Sodium Chloride Flush Syringe 10 Ml IV 10 ml BID ENOC Administration Sodium Chloride 10 ml 03/01/19 22:17 Sodium Chloride Flush Syringe 10 Ml IV PRN PRN LINE FLUSH Nutrition/Malnutrition Assess - Dietary Evaluation Nutrition/Malnutrition Findings: Nutrition Notes Start: 03/02/19 09:43 Freq: Status: Active Protocol: Document 03/20/19 14:47 OH (Rec: 03/20/19 14:53 OH [id number]) Nutrition Notes Initial or Follow up Reassessment Current Diagnosis CKD (stage V CKD),Hypertension Other Pertinent Diagnosis hematochezia Current Diet renal diet with Nepro BID Labs/Tests cr 6.7 glu 183 Pertinent Medications Reviewed Height 5 ft 6 in Weight 54.1 kg [place] Body Weight (kg) 64.54 BMI 19.2 Weight change and time frame Wt noted to be downward trending. Subjective/Other Information Difficulty w/placement for dialysis. Pt. eating/drinking appropriately to maintain nutritional status wnl. Percent of energy/protein needs met: 100/100% Burn Absent Trauma Absent GI Symptoms None Food Allergy No Current % PO Good (75-100%) Minimum of two criteria Yes Interpretation of Weight Loss (severe) >2% in 1 week Muscle Mass Mild Depletion (non-severe) #1 Nutrition Diagnosis Malnutrition Diagnosis Progress(for reassessment Continues documentation) Is patient on ventilator? No Is Patient Ambulatory and/or Out of Bed No REE-([facility]-confined to bed) 1563.516 Calculation Used for Recommendations [facility] Additional Notes Protein needs: >67 g (>1.2g/ kg) Fluid needs: 1000 - 1500 mL Nutrition Intervention Change Diet Order: continue renal diet Add Supplement/Snack (indicate name/kcal Nepro BID /protein ) Provides kCal: 850 Provides Protein (gm) 38 Goal #1 continue to meet at least 80% of dietary needs Anticipated Discharge Needs: Renal diet, w/ Nepro Supplement BID Follow-Up By: 03/27/19 Additional Comments Follow for diet tolerance/ONS
[2019-03-24] MEDS ORDERED: SODIUM CHLORIDE 0.9% 100 ML IV PRN (15:49)
--- NOTE | 2019-03-25 11:18 | Progress Note ---
Assessment and Plan Assessment and plan: Patient is 58-year-old man history of hypertension, schizophrenia, bipolar, subarachnoid hemorrhage, status post frontal craniotomy with aneurysmal clip, end-stage renal disease on dialysis was sent from [facility] because he did not have dialysis since he was discharged on Wednesday. He was discharged on Wednesday after prolonged stay. Was reported that he was denied by [facility] dialysis.he has no complaints, very poor historian. Patient is able to speak but often choses not to He previously was ambulatory but admitted last time with left sided weakness Patient stay was prolonged due to placement issues He remained clinically stable, was treated for seizures and placed on keppra, baclofen discontinued Bp meds were adjusted due hypotension He was discharged after a dialysis place was established but returns because the dialysis centers medical language specialist declined to now accept him Hydralazine stopped cxr with no abnormality Tachycardia -Sinus on EKG -improved with addition of Atenolol, also helps with the BP End-stage renal disease -Nephrology consulted -Avoid nephrotoxic agents -Renally dose all meds -Nephrology initiated hemdialysis on 12/ H/O schizophrenia and bipolar - Abilify 5 mg PO daily, psych following -Hx Hypertension -BP uncontrolled. Continue to adjust medications as needed Hx Right subarachnoid hemorrhage, status post right frontal craniotomy Hx aneurysm, status post clipping -Continue supportive care -Neurology recommended outpatient follow Tobacco abuse -Current every day smoker -Counseled for cessation -Nicotine patch when necessary Moderate Protein Calorie Malnutrition Continue to encourage PO intake Thrombocytopenia. - cont to Monitor dvt/gi prophy Discharge once dialysis center obtained water resources project manager is now arranging for placement No family at bedside today. No clinical change in documented at this time History Interval history: Patient seen and examined remained stable no acute distress reported at this time. increased HR this am, no inciting factors, no complaints by the patient Hospitalist Physical - Physical exam Narrative exam: Gen: thin frail NAD, Awake, Alert, Orientated x 2, lying in bed comfortably, warm to touch HEENT: old right skull deformity, EOMI, PERRL, OP Clear Neck: supple, no adenopathy, no thyromegaly, no JVD CVS/Heart: RR,tachyc normal S1S2, pulses present bilaterally Chest/Lungs: CTA B, Symmetrical chest expansion, good air entry bilaterally GI/Abdomen: soft, NTND, good bowel sounds, no guarding or rebound /Bladder: no suprapubic tenderness, no CVA or paraspinal tenderness Extermity/Skin: no c/c/e, no obvious rash MSK: FROM x 4 Neuro: CN 2-12 grossly intact, no new focal deficits Psych: calm - Constitutional Vitals: Temp Pulse Resp BP Pulse Ox 99.6 F 108 H 18 107/64 98 03/25/19 08:20 03/25/19 11:00 03/25/19 08:20 03/25/19 11:00 03/25/19 05:49 Results - Labs CBC & Chem 7: 03/11/19 04:34 03/11/19 04:34 Labs: Laboratory Last Values WBC 7.2 K/mm3 (4.5-11.0) 03/11/19 04:34 RBC 3.63 M/mm3 (3.65-5.03) L 03/11/19 04:34 Hgb 10.2 gm/dl (11.8-15.2) L 03/11/19 04:34 Hct 32.0 % (35.5-45.6) L 03/11/19 04:34 MCV 88 fl (84-94) 03/11/19 04:34 MCH 28 pg (28-32) 03/11/19 04:34 MCHC 32 % (32-34) 03/11/19 04:34 RDW 13.3 % (13.2-15.2) 03/11/19 04:34 Plt Count 185 K/mm3 (140-440) 03/11/19 04:34 Lymph % (Auto) 19.0 % (13.4-35.0) 03/08/19 07:49 [place] % (Auto) 10.6 % (0.0-7.3) H 03/08/19 07:49 Eos % (Auto) 9.1 % (0.0-4.3) H 03/08/19 07:49 Baso % (Auto) 0.6 % (0.0-1.8) 03/08/19 07:49 Lymph # 1.3 K/mm3 (1.2-5.4) 03/08/19 07:49 [place] # 0.7 K/mm3 (0.0-0.8) 03/08/19 07:49 Eos # 0.6 K/mm3 (0.0-0.4) H 03/08/19 07:49 Baso # 0.0 K/mm3 (0.0-0.1) 03/08/19 07:49 Seg Neutrophils % 60.7 % (40.0-70.0) 03/08/19 07:49 Seg Neutrophils # 4.1 K/mm3 (1.8-7.7) 03/08/19 07:49 Sodium 138 mmol/L (137-145) 03/11/19 04:34 Potassium 4.1 mmol/L (3.6-5.0) 03/11/19 04:34 Chloride 98.4 mmol/L (98-107) 03/11/19 04:34 Carbon Dioxide 23 mmol/L (22-30) 03/11/19 04:34 Anion Gap 21 mmol/L 03/11/19 04:34 BUN 33 mg/dL (9-20) H 03/11/19 04:34 Creatinine 6.7 mg/dL (0.8-1.5) H 03/11/19 04:34 Estimated GFR 10 ml/min 03/11/19 04:34 BUN/Creatinine Ratio 5 % 03/11/19 04:34 Glucose 100 mg/dL (75-100) 03/11/19 04:34 POC Glucose 183 (70-105) H 03/15/19 11:20 Calcium 9.4 mg/dL (8.4-10.2) 03/11/19 04:34 Phosphorus 5.00 mg/dL (2.5-4.5) H 03/08/19 07:49 Magnesium 2.00 mg/dL (1.7-2.3) 03/08/19 07:49 Total Bilirubin 0.30 mg/dL (0.1-1.2) 03/08/19 07:49 AST 14 units/L (5-40) 03/08/19 07:49 ALT 10 units/L (7-56) 03/08/19 07:49 Alkaline Phosphatase 59 units/L (35-129) 03/08/19 07:49 Total Protein 7.1 g/dL (6.3-8.2) 03/08/19 07:49 Albumin 3.2 g/dL (3.9-5) L 03/08/19 07:49 Albumin/Globulin Ratio 0.8 % 03/08/19 07:49 Hepatitis A IgM Ab Non-reactive (NonReactive) 03/22/19 11:20 Hep Bs Antigen Non-reactive (Negative) 03/22/19 11:20 Hep B Core IgM Ab Non-reactive (NonReactive) 03/22/19 11:20 Hepatitis C Antibody Non-reactive (NonReactive) 03/22/19 11:20 Active Medications - Current Medications Current Medications: Generic Name Dose Route Start Last Admin Trade Name Freq PRN Reason Stop Dose Admin Acetaminophen 650 mg 03/01/19 22:17 Tylenol PO Q4H PRN Pain MILD(1-3)/Fever >100.5/QUAN Amlodipine Besylate 10 mg 03/02/19 10:00 03/24/19 10:34 Amlodipine PO 10 mg QDAY ENOC Administration Aripiprazole 5 mg 03/02/19 10:00 03/24/19 10:34 Aripiprazole PO 5 mg QDAY ENOC Administration Atenolol 25 mg 03/24/19 10:00 03/24/19 10:34 Tenormin PO 25 mg QDAY ENOC Administration Enoxaparin Sodium 30 mg 03/02/19 10:00 03/24/19 10:33 Enoxaparin SUB-Q 30 mg QDAY ENOC Administration Epoetin Polo 10,000 unit 03/02/19 08:31 03/22/19 15:00 Procrit IV 10,000 unit LOKESH PRN Administration hemodialysis Heparin Sodium (Porcine) 1,000 unit 03/02/19 08:31 03/15/19 10:28 Heparin 10,000 Units/10 Ml IV 1,000 unit LOKESH PRN Administration hemodialysis Heparin Sodium (Porcine) 5,000 unit 03/02/19 08:31 03/15/19 14:21 Heparin IV 5,000 unit LOKESH PRN Administration hemodialysis Sodium Chloride 100 mls @ 999 mls/hr 03/10/19 08:08 Nacl 0.9% IV LOKESH PRN Hypotension Sodium Chloride 100 mls @ 999 mls/hr 03/24/19 15:49 Nacl 0.9% IV LOKESH PRN Hypotension Ondansetron HCl 4 mg 03/01/19 22:17 Zofran IV Q8H PRN Nausea And Vomiting Pantoprazole Sodium 40 mg 03/02/19 10:00 03/24/19 10:33 Protonix PO 40 mg QDAY ENOC Administration Sodium Chloride 10 ml 03/02/19 10:00 03/24/19 21:55 Sodium Chloride Flush Syringe 10 Ml IV 10 ml BID ENOC Administration Sodium Chloride 10 ml 03/01/19 22:17 Sodium Chloride Flush Syringe 10 Ml IV PRN PRN LINE FLUSH Nutrition/Malnutrition Assess - Dietary Evaluation Nutrition/Malnutrition Findings: Nutrition Notes Start: 03/02/19 09:43 Freq: Status: Active Protocol: Document 03/20/19 14:47 OH (Rec: 03/20/19 14:53 OH [id number]) Nutrition Notes Initial or Follow up Reassessment Current Diagnosis CKD (stage V CKD),Hypertension Other Pertinent Diagnosis hematochezia Current Diet renal diet with Nepro BID Labs/Tests cr 6.7 glu 183 Pertinent Medications Reviewed Height 5 ft 6 in Weight 54.1 kg [place] Body Weight (kg) 64.54 BMI 19.2 Weight change and time frame Wt noted to be downward trending. Subjective/Other Information Difficulty w/placement for dialysis. Pt. eating/drinking appropriately to maintain nutritional status wnl. Percent of energy/protein needs met: 100/100% Burn Absent Trauma Absent GI Symptoms None Food Allergy No Current % PO Good (75-100%) Minimum of two criteria Yes Interpretation of Weight Loss (severe) >2% in 1 week Muscle Mass Mild Depletion (non-severe) #1 Nutrition Diagnosis Malnutrition Diagnosis Progress(for reassessment Continues documentation) Is patient on ventilator? No Is Patient Ambulatory and/or Out of Bed No REE-([facility]-confined to bed) 1563.516 Calculation Used for Recommendations [facility] Additional Notes Protein needs: >67 g (>1.2g/ kg) Fluid needs: 1000 - 1500 mL Nutrition Intervention Change Diet Order: continue renal diet Add Supplement/Snack (indicate name/kcal Nepro BID /protein ) Provides kCal: 850 Provides Protein (gm) 38 Goal #1 continue to meet at least 80% of dietary needs Anticipated Discharge Needs: Renal diet, w/ Nepro Supplement BID Follow-Up By: 03/27/19 Additional Comments Follow for diet tolerance/ONS
[2019-03-25] MEDS: EPOETIN ALFA 10,000 UNIT/1 ML INJ IV PRN (11:33)
--- NOTE | 2019-03-25 14:22 | Progress Note ---
Assessment and Plan - Patient Problems (1) End-stage renal disease needing dialysis Current Visit: Yes Status: Chronic Plan to address problem: Continue hemodialysis on a Wednesday, and Wednesday schedule. Unfortunately, [facility] is out of network with patient's insurance. merchandise flow manager is now arranging for placement at [facility]. (2) Anemia in end-stage renal disease Current Visit: Yes Status: Chronic Plan to address problem: Give Erythropoetin on dialysis (3) Hypertension associated with stage 5 chronic kidney disease due to type 2 diabetes mellitus Current Visit: Yes Status: Chronic Plan to address problem: Follow-up blood pressure on current medications (4) Schizoaffective disorder Current Visit: Yes Status: Chronic Plan to address problem: Continue management by psychiatrist Subjective Date of service: 03/25/19 Principal diagnosis: ESRD, schizophrenia, malnutrition, was of the opinion Interval history: Patient seen lying in bed. He has no complaints. Just got back from dialysis. Nurse about to assist him with lunch Objective - Exam Narrative Exam: Middle-aged -[place] male lying in bed in no acute distress HEENT: NCAT, pink oral mucous membrane Neck: Supple, no venous distention CVS: S1S2 RRR with no murmur, rub or gallop Chest: Clear to auscultation Abdomen: Protuberant, soft, nontender, no organomegaly, bowel sounds are present Extremities: No edema Neuro: Awake, alert - Vital Signs Vital signs: Vital Signs - 12hr 03/25/19 03/25/19 03/25/19 03:53 05:49 08:20 Temperature 98.6 F 99.6 F 99.6 F Pulse Rate 81 76 Respiratory 18 18 Rate Blood Pressure 139/94 107/68 O2 Sat by Pulse 98 Oximetry 03/25/19 03/25/19 03/25/19 09:00 09:15 09:30 Temperature Pulse Rate 71 71 71 Respiratory Rate Blood Pressure 119/69 109/67 111/73 O2 Sat by Pulse Oximetry 03/25/19 03/25/19 03/25/19 09:45 10:00 10:15 Temperature Pulse Rate 77 75 68 Respiratory Rate Blood Pressure 117/77 118/84 108/66 O2 Sat by Pulse Oximetry 03/25/19 03/25/19 03/25/19 10:45 11:00 11:15 Temperature Pulse Rate 77 108 H 85 Respiratory Rate Blood Pressure 117/68 107/64 121/62 O2 Sat by Pulse Oximetry 03/25/19 03/25/19 03/25/19 11:30 11:45 12:00 Temperature Pulse Rate 80 76 80 Respiratory Rate Blood Pressure 117/70 105/76 112/59 O2 Sat by Pulse Oximetry 03/25/19 03/25/19 03/25/19 12:15 12:30 12:45 Temperature Pulse Rate 88 87 90 Respiratory Rate Blood Pressure 116/57 107/58 110/64 O2 Sat by Pulse Oximetry 03/25/19 12:46 Temperature 99.6 F Pulse Rate 86 Respiratory 18 Rate Blood Pressure 119/71 O2 Sat by Pulse Oximetry - Lab 03/11/19 04:34 03/11/19 04:34 Most recent lab results Calcium 9.4 mg/dL (8.4-10.2) 03/11/19 04:34 Phosphorus 5.00 mg/dL (2.5-4.5) H 03/08/19 07:49 Magnesium 2.00 mg/dL (1.7-2.3) 03/08/19 07:49 Medications & Allergies - Medications Allergies/Adverse Reactions: Allergies No Known Allergies Allergy (Unverified 04/17/17 13:03) Home Medications: Home Medications Medication Instructions Recorded Confirmed Last Taken Type ARIPiprazole 5 mg PO QDAY #30 tablet 02/27/19 03/01/19 Unknown Rx Pantoprazole [Protonix TAB] 40 mg PO QDAY #30 tablet 02/27/19 03/01/19 Unknown Rx amLODIPine 10 mg PO QDAY #30 tablet 02/27/19 03/01/19 Unknown Rx hydrALAZINE [Apresoline TAB] 50 mg PO TID #90 tab 02/27/19 03/01/19 Unknown Rx Active Medications: Generic Name Dose Route Start Last Admin Trade Name Freq PRN Reason Stop Dose Admin Acetaminophen 650 mg 03/01/19 22:17 Tylenol PO Q4H PRN Pain MILD(1-3)/Fever >100.5/QUAN Amlodipine Besylate 10 mg 03/02/19 10:00 03/24/19 10:34 Amlodipine PO 10 mg QDAY ENOC Administration Aripiprazole 5 mg 03/02/19 10:00 03/24/19 10:34 Aripiprazole PO 5 mg QDAY ENOC Administration Atenolol 25 mg 03/24/19 10:00 03/24/19 10:34 Tenormin PO 25 mg QDAY ENOC Administration Enoxaparin Sodium 30 mg 03/02/19 10:00 03/24/19 10:33 Enoxaparin SUB-Q 30 mg QDAY ENOC Administration Epoetin [place] 10,000 unit 03/02/19 08:31 03/25/19 11:33 Procrit IV 10,000 unit LOKESH PRN Administration hemodialysis Heparin Sodium (Porcine) 1,000 unit 03/02/19 08:31 03/15/19 10:28 Heparin 10,000 Units/10 Ml IV 1,000 unit LOKESH PRN Administration hemodialysis Heparin Sodium (Porcine) 5,000 unit 03/02/19 08:31 03/15/19 14:21 Heparin IV 5,000 unit LOKESH PRN Administration hemodialysis Sodium Chloride 100 mls @ 999 mls/hr 03/24/19 15:49 Nacl 0.9% IV LOKESH PRN Hypotension Ondansetron HCl 4 mg 03/01/19 22:17 Zofran IV Q8H PRN Nausea And Vomiting Pantoprazole Sodium 40 mg 03/02/19 10:00 03/24/19 10:33 Protonix PO 40 mg QDAY ENOC Administration Sodium Chloride 10 ml 03/02/19 10:00 03/24/19 21:55 Sodium Chloride Flush Syringe 10 Ml IV 10 ml BID ENOC Administration
[2019-03-25] MEDS: atenoloL 25 MG TAB PO SCH (16:00)
[2019-03-25] MEDS: ENOXAPARIN 30 MG/0.3 ML INJ SUB-Q SCH (17:37)
[2019-03-25] MEDS: PANTOPRAZOLE 40 MG TAB PO SCH (17:37)
[2019-03-25] MEDS: ARIPiprazole 5 MG TAB PO SCH (17:37)
[2019-03-25] MEDS ORDERED: SODIUM CHLORIDE*PRIMING MACHINE ONLY FOR DIALYSIS MC ONE (22:31)
[2019-03-26] MEDS: atenoloL 25 MG TAB PO SCH (11:04)
[2019-03-26] MEDS: PANTOPRAZOLE 40 MG TAB PO SCH (11:05)
[2019-03-26] MEDS: ENOXAPARIN 30 MG/0.3 ML INJ SUB-Q SCH (11:05)
[2019-03-26] MEDS: ARIPiprazole 5 MG TAB PO SCH (11:05)
--- NOTE | 2019-03-26 14:47 | Progress Note ---
Assessment and Plan - Patient Problems (1) End-stage renal disease needing dialysis Current Visit: Yes Status: Chronic Plan to address problem: Continue hemodialysis on a Wednesday, and Wednesday schedule. Unfortunately, [facility] is out of network with patient's insurance. legal records manager is now arranging for placement at [facility]. (2) Anemia in end-stage renal disease Current Visit: Yes Status: Chronic Plan to address problem: Give Erythropoetin on dialysis (3) Hypertension associated with stage 5 chronic kidney disease due to type 2 diabetes mellitus Current Visit: Yes Status: Chronic Plan to address problem: Follow-up blood pressure on current medications (4) Schizoaffective disorder Current Visit: Yes Status: Chronic Plan to address problem: Continue management by psychiatrist Subjective Date of service: 03/26/19 Principal diagnosis: ESRD, schizophrenia, malnutrition, was of the opinion Interval history: Patient seen lying in bed. He has no complaints. Objective - Exam Narrative Exam: Middle-aged -Sy[place] male lying in bed in no acute distress HEENT: NCAT, pink oral mucous membrane Neck: Supple, no venous distention CVS: S1S2 RRR with no murmur, rub or gallop Chest: Clear to auscultation Abdomen: Protuberant, soft, nontender, no organomegaly, bowel sounds are present Extremities: No edema Neuro: Awake, alert - Vital Signs Vital signs: Vital Signs - 12hr 03/26/19 03/26/19 06:22 13:19 Temperature 98.2 F 98.6 F Pulse Rate 74 Respiratory 18 20 Rate Blood Pressure 115/81 116/86 O2 Sat by Pulse 99 Oximetry - Lab 03/11/19 04:34 03/11/19 04:34 Most recent lab results Calcium 9.4 mg/dL (8.4-10.2) 03/11/19 04:34 Phosphorus 5.00 mg/dL (2.5-4.5) H 03/08/19 07:49 Magnesium 2.00 mg/dL (1.7-2.3) 03/08/19 07:49 Medications & Allergies - Medications Allergies/Adverse Reactions: Allergies No Known Allergies Allergy (Unverified 04/17/17 13:03) Home Medications: Home Medications Medication Instructions Recorded Confirmed Last Taken Type ARIPiprazole 5 mg PO QDAY #30 tablet 02/27/19 03/01/19 Unknown Rx Pantoprazole [Protonix TAB] 40 mg PO QDAY #30 tablet 02/27/19 03/01/19 Unknown Rx amLODIPine 10 mg PO QDAY #30 tablet 02/27/19 03/01/19 Unknown Rx hydrALAZINE [Apresoline TAB] 50 mg PO TID #90 tab 02/27/19 03/01/19 Unknown Rx Active Medications: Generic Name Dose Route Start Last Admin Trade Name Freq PRN Reason Stop Dose Admin Acetaminophen 650 mg 03/01/19 22:17 Tylenol PO Q4H PRN Pain MILD(1-3)/Fever >100.5/QUAN Aripiprazole 5 mg 03/02/19 10:00 03/26/19 11:05 Aripiprazole PO 5 mg QDAY ENOC Administration Atenolol 25 mg 03/24/19 10:00 03/26/19 11:04 Tenormin PO 25 mg QDAY ENOC Administration Enoxaparin Sodium 30 mg 03/02/19 10:00 03/26/19 11:05 Enoxaparin SUB-Q 30 mg QDAY ENOC Administration Epoetin Polo 10,000 unit 03/02/19 08:31 03/25/19 11:33 Procrit IV 10,000 unit LOKESH PRN Administration hemodialysis Heparin Sodium (Porcine) 1,000 unit 03/02/19 08:31 03/15/19 10:28 Heparin 10,000 Units/10 Ml IV 1,000 unit LOKESH PRN Administration hemodialysis Heparin Sodium (Porcine) 5,000 unit 03/02/19 08:31 03/15/19 14:21 Heparin IV 5,000 unit LOKESH PRN Administration hemodialysis Sodium Chloride 100 mls @ 999 mls/hr 03/24/19 15:49 Nacl 0.9% IV LOKESH PRN Hypotension Ondansetron HCl 4 mg 03/01/19 22:17 Zofran IV Q8H PRN Nausea And Vomiting Pantoprazole Sodium 40 mg 03/02/19 10:00 03/26/19 11:05 Protonix PO 40 mg QDAY ENOC Administration Sodium Chloride 10 ml 03/02/19 10:00 03/26/19 11:05 Sodium Chloride Flush Syringe 10 Ml IV 10 ml BID ENOC Administration
--- NOTE | 2019-03-26 15:04 | Progress Note ---
Assessment and Plan Assessment and plan: Patient is 58-year-old man history of hypertension, schizophrenia, bipolar, subarachnoid hemorrhage, status post frontal craniotomy with aneurysmal clip, end-stage renal disease on dialysis was sent from [facility] because he did not have dialysis since he was discharged on Wednesday. He was discharged on Wednesday after prolonged stay. Was reported that he was denied by [facility] dialysis.he has no complaints, very poor historian. Patient is able to speak but often choses not to He previously was ambulatory but admitted last time with left sided weakness Patient stay was prolonged due to placement issues He remained clinically stable, was treated for seizures and placed on keppra, baclofen discontinued Bp meds were adjusted due hypotension He was discharged after a dialysis place was established but returns because the dialysis centers medical transcription supervisor declined to now accept him Hydralazine stopped, also discontinued Norvasc cxr with no abnormality Tachycardia -Sinus on EKG -improved with addition of Atenolol, also helps with the BP End-stage renal disease -Nephrology consulted -Avoid nephrotoxic agents -Renally dose all meds -Nephrology initiated hemdialysis on 12/6 H/O schizophrenia and bipolar - Abilify 5 mg PO daily, psych following -Hx Hypertension -BP uncontrolled. Continue to adjust medications as needed Hx Right subarachnoid hemorrhage, status post right frontal craniotomy Hx aneurysm, status post clipping -Continue supportive care -Neurology recommended outpatient follow Tobacco abuse -Current every day smoker -Counseled for cessation -Nicotine patch when necessary Moderate Protein Calorie Malnutrition Continue to encourage PO intake Thrombocytopenia. - cont to Monitor dvt/gi prophy Discharge once dialysis center obtained cafeteria manager is now arranging for placement No family at bedside today. History Interval history: Patient seen and examined remained stable no acute distress reported at this time. Stable blood pressure medication discontinued yesterday due to hypotensive episode. Will continue only on atenolol Hospitalist Physical - Physical exam Narrative exam: Gen: thin frail NAD, Awake, Alert, Orientated x 2, lying in bed comfortably, warm to touch HEENT: old right skull deformity, EOMI, PERRL, OP Clear Neck: supple, no adenopathy, no thyromegaly, no JVD CVS/Heart: RR,tachyc normal S1S2, pulses present bilaterally Chest/Lungs: CTA B, Symmetrical chest expansion, good air entry bilaterally GI/Abdomen: soft, NTND, good bowel sounds, no guarding or rebound /Bladder: no suprapubic tenderness, no CVA or paraspinal tenderness Extermity/Skin: no c/c/e, no obvious rash MSK: FROM x 4 Neuro: CN 2-12 grossly intact, no new focal deficits Psych: calm - Constitutional Vitals: Temp Pulse Resp BP Pulse Ox 98.6 F 74 20 116/86 99 03/26/19 13:19 03/26/19 13:19 03/26/19 13:19 03/26/19 13:03/26/19 13:19 Results - Labs CBC & Chem 7: 03/11/19 04:34 03/11/19 04:34 Labs: Laboratory Last Values WBC 7.2 K/mm3 (4.5-11.0) 03/11/19 04:34 RBC 3.63 M/mm3 (3.65-5.03) L 03/11/19 04:34 Hgb 10.2 gm/dl (11.8-15.2) L 03/11/19 04:34 Hct 32.0 % (35.5-45.6) L 03/11/19 04:34 MCV 88 fl (84-94) 03/11/19 04:34 MCH 28 pg (28-32) 03/11/19 04:34 MCHC 32 % (32-34) 03/11/19 04:34 RDW 13.3 % (13.2-15.2) 03/11/19 04:34 Plt Count 185 K/mm3 (140-440) 03/11/19 04:34 Lymph % (Auto) 19.0 % (13.4-35.0) 03/08/19 07:49 [place] % (Auto) 10.6 % (0.0-7.3) H 03/08/19 07:49 Eos % (Auto) 9.1 % (0.0-4.3) H 03/08/19 07:49 Baso % (Auto) 0.6 % (0.0-1.8) 03/08/19 07:49 Lymph # 1.3 K/mm3 (1.2-5.4) 03/08/19 07:49 [place] # 0.7 K/mm3 (0.0-0.8) 03/08/19 07:49 Eos # 0.6 K/mm3 (0.0-0.4) H 03/08/19 07:49 Baso # 0.0 K/mm3 (0.0-0.1) 03/08/19 07:49 Seg Neutrophils % 60.7 % (40.0-70.0) 03/08/19 07:49 Seg Neutrophils # 4.1 K/mm3 (1.8-7.7) 03/08/19 07:49 Sodium 138 mmol/L (137-145) 03/11/19 04:34 Potassium 4.1 mmol/L (3.6-5.0) 03/11/19 04:34 Chloride 98.4 mmol/L (98-107) 03/11/19 04:34 Carbon Dioxide 23 mmol/L (22-30) 03/11/19 04:34 Anion Gap 21 mmol/L 03/11/19 04:34 BUN 33 mg/dL (9-20) H 03/11/19 04:34 Creatinine 6.7 mg/dL (0.8-1.5) H 03/11/19 04:34 Estimated GFR 10 ml/min 03/11/19 04:34 BUN/Creatinine Ratio 5 % 03/11/19 04:34 Glucose 100 mg/dL (75-100) 03/11/19 04:34 POC Glucose 132 (70-105) H 03/25/19 15:59 Calcium 9.4 mg/dL (8.4-10.2) 03/11/19 04:34 Phosphorus 5.00 mg/dL (2.5-4.5) H 03/08/19 07:49 Magnesium 2.00 mg/dL (1.7-2.3) 03/08/19 07:49 Total Bilirubin 0.30 mg/dL (0.1-1.2) 03/08/19 07:49 AST 14 units/L (5-40) 03/08/19 07:49 ALT 10 units/L (7-56) 03/08/19 07:49 Alkaline Phosphatase 59 units/L (35-129) 03/08/19 07:49 Total Protein 7.1 g/dL (6.3-8.2) 03/08/19 07:49 Albumin 3.2 g/dL (3.9-5) L 03/08/19 07:49 Albumin/Globulin Ratio 0.8 % 03/08/19 07:49 Hepatitis A IgM Ab Non-reactive (NonReactive) 03/22/19 11:20 Hep Bs Antigen Non-reactive (Negative) 03/22/19 11:20 Hep B Core IgM Ab Non-reactive (NonReactive) 03/22/19 11:20 Hepatitis C Antibody Non-reactive (NonReactive) 03/22/19 11:20 Active Medications - Current Medications Current Medications: Generic Name Dose Route Start Last Admin Trade Name Freq PRN Reason Stop Dose Admin Acetaminophen 650 mg 03/01/19 22:17 Tylenol PO Q4H PRN Pain MILD(1-3)/Fever >100.5/QUAN Aripiprazole 5 mg 03/02/19 10:00 03/26/19 11:05 Aripiprazole PO 5 mg QDAY ENOC Administration Atenolol 25 mg 03/24/19 10:00 03/26/19 11:04 Tenormin PO 25 mg QDAY ENOC Administration Enoxaparin Sodium 30 mg 03/02/19 10:00 03/26/19 11:05 Enoxaparin SUB-Q 30 mg QDAY ENOC Administration Epoetin Polo 10,000 unit 03/02/19 08:31 03/25/19 11:33 Procrit IV 10,000 unit LOKESH PRN Administration hemodialysis Heparin Sodium (Porcine) 1,000 unit 03/02/19 08:31 03/15/19 10:28 Heparin 10,000 Units/10 Ml IV 1,000 unit LOKESH PRN Administration hemodialysis Heparin Sodium (Porcine) 5,000 unit 03/02/19 08:31 03/15/19 14:21 Heparin IV 5,000 unit LOKESH PRN Administration hemodialysis Sodium Chloride 100 mls @ 999 mls/hr 03/24/19 15:49 Nacl 0.9% IV LOKESH PRN Hypotension Ondansetron HCl 4 mg 03/01/19 22:17 Zofran IV Q8H PRN Nausea And Vomiting Pantoprazole Sodium 40 mg 03/02/19 10:00 03/26/19 11:05 Protonix PO 40 mg QDAY ENOC Administration Sodium Chloride 10 ml 03/02/19 10:00 03/26/19 11:05 Sodium Chloride Flush Syringe 10 Ml IV 10 ml BID ENOC Administration Nutrition/Malnutrition Assess - Dietary Evaluation Nutrition/Malnutrition Findings: Nutrition Notes Start: 03/02/19 09:43 Freq: Status: Active Protocol: Document 03/20/19 14:47 OH (Rec: 03/20/19 14:53 OH [id number]) Nutrition Notes Initial or Follow up Reassessment Current Diagnosis CKD (stage V CKD),Hypertension Other Pertinent Diagnosis hematochezia Current Diet renal diet with Nepro BID Labs/Tests cr 6.7 glu 183 Pertinent Medications Reviewed Height 5 ft 6 in Weight 54.1 kg [place] Body Weight (kg) 64.54 BMI 19.2 Weight change and time frame Wt noted to be downward trending. Subjective/Other Information Difficulty w/placement for dialysis. Pt. eating/drinking appropriately to maintain nutritional status wnl. Percent of energy/protein needs met: 100/100% Burn Absent Trauma Absent GI Symptoms None Food Allergy No Current % PO Good (75-100%) Minimum of two criteria Yes Interpretation of Weight Loss (severe) >2% in 1 week Muscle Mass Mild Depletion (non-severe) #1 Nutrition Diagnosis Malnutrition Diagnosis Progress(for reassessment Continues documentation) Is patient on ventilator? No Is Patient Ambulatory and/or Out of Bed No REE-([facility]-confined to bed) 1563.516 Calculation Used for Recommendations [facility] Additional Notes Protein needs: >67 g (>1.2g/ kg) Fluid needs: 1000 - 1500 mL Nutrition Intervention Change Diet Order: continue renal diet Add Supplement/Snack (indicate name/kcal Nepro BID /protein ) Provides kCal: 850 Provides Protein (gm) 38 Goal #1 continue to meet at least 80% of dietary needs Anticipated Discharge Needs: Renal diet, w/ Nepro Supplement BID Follow-Up By: 03/27/19 Additional Comments Follow for diet tolerance/ONS
[2019-03-27] MEDS: ENOXAPARIN 30 MG/0.3 ML INJ SUB-Q SCH (09:19)
[2019-03-27] MEDS: PANTOPRAZOLE 40 MG TAB PO SCH (09:19)
[2019-03-27] MEDS: ARIPiprazole 5 MG TAB PO SCH (09:19)
[2019-03-27] MEDS: atenoloL 25 MG TAB PO SCH (09:20)
--- NOTE | 2019-03-27 09:22 | Progress Note ---
Assessment and Plan - Patient Problems (1) End-stage renal disease needing dialysis Current Visit: Yes Status: Chronic Plan to address problem: Continue on TTS inpatient HD schedule. Awaiting outpatient HD placement. (2) Hypertension associated with stage 5 chronic kidney disease due to type 2 diabetes mellitus Current Visit: Yes Status: Chronic Plan to address problem: Monitor blood pressures with current regimen, (3) Anemia in end-stage renal disease Current Visit: Yes Status: Chronic Plan to address problem: TWAN therapy with HD. (4) Schizoaffective disorder Current Visit: Yes Status: Chronic Plan to address problem: Management per psychiatry recommendations. Subjective Date of service: 03/27/19 Principal diagnosis: ESRD, schizophrenia, malnutrition, was of the opinion Interval history: No acute changes overnight. Objective - Vital Signs Vital signs: Vital Signs - 12hr 03/26/19 03/27/19 03/27/19 23:48 06:19 09:20 Temperature 98.6 F 98.7 F Pulse Rate 67 69 Respiratory 18 18 Rate Blood Pressure 122/89 110/67 110/70 O2 Sat by Pulse 99 99 Oximetry - General Appearance General appearance: well-nourished, appears stated age EENT: ATNC, PERRL Neck: no JVD, no thyromegaly Respiratory: Present: Clear to Ascultation Cardiology: regular, S1S2 Gastrointestinal: normal, normoactive bowel sounds Integumentary: no rash Neurologic: confused Musculoskeletal: deferred Psychiatric: cooperative - Lab 03/11/19 04:34 03/11/19 04:34 Most recent lab results Calcium 9.4 mg/dL (8.4-10.2) 03/11/19 04:34 Phosphorus 5.00 mg/dL (2.5-4.5) H 03/08/19 07:49 Magnesium 2.00 mg/dL (1.7-2.3) 03/08/19 07:49 - Allied health notes Allied health notes reviewed: nursing Medications & Allergies - Medications Allergies/Adverse Reactions: Allergies No Known Allergies Allergy (Unverified 04/17/17 13:03) Home Medications: Home Medications Medication Instructions Recorded Confirmed Last Taken Type ARIPiprazole 5 mg PO QDAY #30 tablet 02/27/19 03/01/19 Unknown Rx Pantoprazole [Protonix TAB] 40 mg PO QDAY #30 tablet 02/27/19 03/01/19 Unknown Rx amLODIPine 10 mg PO QDAY #30 tablet 02/27/19 03/01/19 Unknown Rx hydrALAZINE [Apresoline TAB] 50 mg PO TID #90 tab 02/27/19 03/01/19 Unknown Rx Active Medications: Generic Name Dose Route Start Last Admin Trade Name Freq PRN Reason Stop Dose Admin Acetaminophen 650 mg 03/01/19 22:17 Tylenol PO Q4H PRN Pain MILD(1-3)/Fever >100.5/QUAN Aripiprazole 5 mg 03/02/19 10:00 03/27/19 09:19 Aripiprazole PO 5 mg QDAY ENOC Administration Atenolol 25 mg 03/24/19 10:00 03/27/19 09:20 Tenormin PO 25 mg QDAY ENOC Administration Enoxaparin Sodium 30 mg 03/02/19 10:00 03/27/19 09:19 Enoxaparin SUB-Q 30 mg QDAY ENOC Administration Epoetin Polo 10,000 unit 03/02/19 08:31 03/25/19 11:33 Procrit IV 10,000 unit LOKESH PRN Administration hemodialysis Heparin Sodium (Porcine) 1,000 unit 03/02/19 08:31 03/15/19 10:28 Heparin 10,000 Units/10 Ml IV 1,000 unit LOKESH PRN Administration hemodialysis Heparin Sodium (Porcine) 5,000 unit 03/02/19 08:31 03/15/19 14:21 Heparin IV 5,000 unit LOKESH PRN Administration hemodialysis Sodium Chloride 100 mls @ 999 mls/hr 03/24/19 15:49 Nacl 0.9% IV LOKESH PRN Hypotension Ondansetron HCl 4 mg 03/01/19 22:17 Zofran IV Q8H PRN Nausea And Vomiting Pantoprazole Sodium 40 mg 03/02/19 10:00 03/27/19 09:19 Protonix PO 40 mg QDAY ENOC Administration Sodium Chloride 10 ml 03/02/19 10:00 03/27/19 09:20 Sodium Chloride Flush Syringe 10 Ml IV 10 ml BID ENOC Administration
[2019-03-27 09:48] LABS: Hematocrit 35.7 % (35.5-45.6); Hemoglobin 11.1 gm/dl (11.8-15.2); Mean Corpuscular HGB Conc 31 % (32-34); Mean Corpuscular Volume 87 fl (84-94); Platelet Count 301 K/mm3 (140-440); Red Blood Count 4.11 M/mm3 (3.65-5.03); Red Cell Distribution Width 14.6 % (13.2-15.2)
[2019-03-27 10:09] LABS: Calcium 9.2 mg/dL (8.4-10.2)
--- NOTE | 2019-03-27 21:56 | Progress Note ---
Assessment and Plan Assessment and plan: Patient is 58-year-old man history of hypertension, schizophrenia, bipolar, subarachnoid hemorrhage, status post frontal craniotomy with aneurysmal clip, end-stage renal disease on dialysis was sent from [facility] because he did not have dialysis since he was discharged on Wednesday. He was discharged on Wednesday after prolonged stay. Was reported that he was denied by [facility] dialysis.he has no complaints, very poor historian. Patient is able to speak but often choses not to He previously was ambulatory but admitted last time with left sided weakness Patient stay was prolonged due to placement issues He remained clinically stable, was treated for seizures and placed on keppra, baclofen discontinued Bp meds were adjusted due hypotension He was discharged after a dialysis place was established but returns because the dialysis centers pediatrician/medical doctor declined to now accept him Hydralazine stopped, also discontinued Norvasc cxr with no abnormality Tachycardia -Sinus on EKG -improved with addition of Atenolol, also helps with the BP End-stage renal disease -Nephrology consulted -Avoid nephrotoxic agents -Renally dose all meds -Nephrology initiated hemdialysis on 12/6 H/O schizophrenia and bipolar - Abilify 5 mg PO daily, psych following -Hx Hypertension -BP uncontrolled. Continue to adjust medications as needed Hx Right subarachnoid hemorrhage, status post right frontal craniotomy Hx aneurysm, status post clipping -Continue supportive care -Neurology recommended outpatient follow Tobacco abuse -Current every day smoker -Counseled for cessation -Nicotine patch when necessary Moderate Protein Calorie Malnutrition Continue to encourage PO intake Thrombocytopenia. - cont to Monitor dvt/gi prophy Discharge once dialysis center obtained estimation manager is now arranging for placement No family at bedside today. History Interval history: Patient seen and examined remained stable no acute distress reported at this time. Hospitalist Physical - Physical exam Narrative exam: Gen: thin frail NAD, Awake, Alert, Orientated x 2, lying in bed comfortably, warm to touch HEENT: old right skull deformity, EOMI, PERRL, OP Clear Neck: supple, no adenopathy, no thyromegaly, no JVD CVS/Heart: RR,tachyc normal S1S2, pulses present bilaterally Chest/Lungs: CTA B, Symmetrical chest expansion, good air entry bilaterally GI/Abdomen: soft, NTND, good bowel sounds, no guarding or rebound /Bladder: no suprapubic tenderness, no CVA or paraspinal tenderness Extermity/Skin: no c/c/e, no obvious rash MSK: FROM x 4 Neuro: CN 2-12 grossly intact, no new focal deficits Psych: calm - Constitutional Vitals: Temp Pulse Resp BP Pulse Ox 98.3 F 73 18 117/80 99 03/27/19 11:31 03/27/19 11:31 03/27/19 11:31 03/27/19 11:31 03/27/19 11:31 Results - Labs CBC & Chem 7: 03/27/19 08:42 03/27/19 08:42 Labs: Laboratory Last Values WBC 8.8 K/mm3 (4.5-11.0) 03/27/19 08:42 RBC 4.11 M/mm3 (3.65-5.03) 03/27/19 08:42 Hgb 11.1 gm/dl (11.8-15.2) L 03/27/19 08:42 Hct 35.7 % (35.5-45.6) 03/27/19 08:42 MCV 87 fl (84-94) 03/27/19 08:42 MCH 27 pg (28-32) L 03/27/19 08:42 MCHC 31 % (32-34) L 03/27/19 08:42 RDW 14.6 % (13.2-15.2) 03/27/19 08:42 Plt Count 301 K/mm3 (140-440) 03/27/19 08:42 Lymph % (Auto) 19.0 % (13.4-35.0) 03/08/19 07:49 [place] % (Auto) 10.6 % (0.0-7.3) H 03/08/19 07:49 Eos % (Auto) 9.1 % (0.0-4.3) H 03/08/19 07:49 Baso % (Auto) 0.6 % (0.0-1.8) 03/08/19 07:49 Lymph # 1.3 K/mm3 (1.2-5.4) 03/08/19 07:49 [place] # 0.7 K/mm3 (0.0-0.8) 03/08/19 07:49 Eos # 0.6 K/mm3 (0.0-0.4) H 03/08/19 07:49 Baso # 0.0 K/mm3 (0.0-0.1) 03/08/19 07:49 Seg Neutrophils % 60.7 % (40.0-70.0) 03/08/19 07:49 Seg Neutrophils # 4.1 K/mm3 (1.8-7.7) 03/08/19 07:49 Sodium 140 mmol/L (137-145) 03/27/19 08:42 Potassium 4.1 mmol/L (3.6-5.0) 03/27/19 08:42 Chloride 95.7 mmol/L (98-107) L 03/27/19 08:42 Carbon Dioxide 19 mmol/L (22-30) L 03/27/19 08:42 Anion Gap 29 mmol/L 03/27/19 08:42 BUN 92 mg/dL (9-20) H 03/27/19 08:42 Creatinine 11.1 mg/dL (0.8-1.5) H 03/27/19 08:42 Estimated GFR 6 ml/min 03/27/19 08:42 BUN/Creatinine Ratio 8 % 03/27/19 08:42 Glucose 130 mg/dL (75-100) H 03/27/19 08:42 POC Glucose 132 (70-105) H 03/25/19 15:59 Calcium 9.2 mg/dL (8.4-10.2) 03/27/19 08:42 Phosphorus 9.60 mg/dL (2.5-4.5) H 03/27/19 08:42 Magnesium 2.00 mg/dL (1.7-2.3) 03/08/19 07:49 Total Bilirubin 0.30 mg/dL (0.1-1.2) 03/08/19 07:49 AST 14 units/L (5-40) 03/08/19 07:49 ALT 10 units/L (7-56) 03/08/19 07:49 Alkaline Phosphatase 59 units/L (35-129) 03/08/19 07:49 Total Protein 7.1 g/dL (6.3-8.2) 03/08/19 07:49 Albumin 3.2 g/dL (3.9-5) L 03/08/19 07:49 Albumin/Globulin Ratio 0.8 % 03/08/19 07:49 PTH Intact 272.6 pg/mL (15-65) H 03/27/19 08:42 Hepatitis A IgM Ab Non-reactive (NonReactive) 03/22/19 11:20 Hep Bs Antigen Non-reactive (Negative) 03/22/19 11:20 Hep B Core IgM Ab Non-reactive (NonReactive) 03/22/19 11:20 Hepatitis C Antibody Non-reactive (NonReactive) 03/22/19 11:20 Active Medications - Current Medications Current Medications: Generic Name Dose Route Start Last Admin Trade Name Freq PRN Reason Stop Dose Admin Acetaminophen 650 mg 03/01/19 22:17 Tylenol PO Q4H PRN Pain MILD(1-3)/Fever >100.5/QUAN Aripiprazole 5 mg 03/02/19 10:00 03/27/19 09:19 Aripiprazole PO 5 mg QDAY ENOC Administration Atenolol 25 mg 03/24/19 10:00 03/27/19 09:20 Tenormin PO 25 mg QDAY ENOC Administration Enoxaparin Sodium 30 mg 03/02/19 10:00 03/27/19 09:19 Enoxaparin SUB-Q 30 mg QDAY ENOC Administration Epoetin Polo 10,000 unit 03/02/19 08:31 03/25/19 11:33 Procrit IV 10,000 unit LOKESH PRN Administration hemodialysis Heparin Sodium (Porcine) 1,000 unit 03/02/19 08:31 03/15/19 10:28 Heparin 10,000 Units/10 Ml IV 1,000 unit LOKESH PRN Administration hemodialysis Heparin Sodium (Porcine) 5,000 unit 03/02/19 08:31 03/15/19 14:21 Heparin IV 5,000 unit LOKESH PRN Administration hemodialysis Sodium Chloride 100 mls @ 999 mls/hr 03/24/19 15:49 Nacl 0.9% IV LOKESH PRN Hypotension Ondansetron HCl 4 mg 03/01/19 22:17 Zofran IV Q8H PRN Nausea And Vomiting Pantoprazole Sodium 40 mg 03/02/19 10:00 03/27/19 09:19 Protonix PO 40 mg QDAY ENOC Administration Sodium Chloride 10 ml 03/02/19 10:00 03/27/19 09:20 Sodium Chloride Flush Syringe 10 Ml IV 10 ml BID ENOC Administration Nutrition/Malnutrition Assess - Dietary Evaluation Nutrition/Malnutrition Findings: Nutrition Notes Start: 03/02/19 09:43 Freq: Status: Active Protocol: Document 03/27/19 13:14 LM (Rec: 03/27/19 13:20 LM [id number]) Nutrition Notes Initial or Follow up Reassessment Current Diagnosis CKD (stage V CKD),Hypertension Other Pertinent Diagnosis hematochezia Current Diet renal diet with Nepro BID Labs/Tests BUN 92 Cr 11.1 BG 130 Pertinent Medications Reviewed Height 5 ft 6 in Weight 54.1 kg [place] Body Weight (kg) 64.54 BMI 19.2 Subjective/Other Information Pt eating about 75% of breakfast this AM, noticed 2 Nepros unopened. Percent of energy/protein needs met: 100%/59% Burn Absent Trauma Absent GI Symptoms None Food Allergy No Current % PO Good (75-100%) Minimum of two criteria Yes Interpretation of Weight Loss (severe) >2% in 1 week Muscle Mass Mild Depletion (non-severe) #1 Nutrition Diagnosis Malnutrition Diagnosis Progress(for reassessment Continues documentation) Is patient on ventilator? No Is Patient Ambulatory and/or Out of Bed No REE-([place]-confined to bed) 1563.516 Calculation Used for Recommendations [facility] Additional Notes Protein needs: >67 g (>1.2g/ kg) Fluid needs: 1000 - 1500 mL Nutrition Intervention Change Diet Order: continue renal diet Add Supplement/Snack (indicate name/kcal Nepro BID /protein ) Provides kCal: 850 Provides Protein (gm) 38 Goal #1 continue to meet at least 80% of dietary needs Anticipated Discharge Needs: Renal diet, w/ Nepro Supplement BID Follow-Up By: 03/30/19 Additional Comments F/U for PO/ONS intakes
--- NOTE | 2019-03-28 08:39 | Progress Note ---
Assessment and Plan - Patient Problems (1) End-stage renal disease needing dialysis Current Visit: Yes Status: Chronic Plan to address problem: Continue on TTS inpatient HD schedule. Awaiting outpatient HD placement. (2) Hypertension associated with stage 5 chronic kidney disease due to type 2 diabetes mellitus Current Visit: Yes Status: Chronic Plan to address problem: Monitor blood pressures with current regimen, (3) Anemia in end-stage renal disease Current Visit: Yes Status: Chronic Plan to address problem: H/H at goal, no acute needs for TWAN therapy. (4) Schizoaffective disorder Current Visit: Yes Status: Chronic Plan to address problem: Management per psychiatry recommendations. Subjective Date of service: 03/28/19 Principal diagnosis: ESRD, schizophrenia, malnutrition, was of the opinion Interval history: No acute issues overnight, pending placement. Objective - Vital Signs Vital signs: Vital Signs - 12hr 03/27/19 03/28/19 23:55 05:27 Temperature 97.3 F L 98.4 F Pulse Rate 72 72 Respiratory 20 20 Rate Blood Pressure 129/91 147/103 O2 Sat by Pulse 98 100 Oximetry - General Appearance General appearance: well-nourished, appears stated age EENT: ATNC, PERRL Neck: no JVD, no thyromegaly Respiratory: Present: Clear to Ascultation Cardiology: regular, S1S2 Gastrointestinal: normal, normoactive bowel sounds Integumentary: no rash, warm and dry Neurologic: confused Musculoskeletal: deferred Psychiatric: cooperative - Lab 03/27/19 08:42 03/27/19 08:42 Most recent lab results Calcium 9.2 mg/dL (8.4-10.2) 03/27/19 08:42 Phosphorus 9.60 mg/dL (2.5-4.5) H 03/27/19 08:42 Magnesium 2.00 mg/dL (1.7-2.3) 03/08/19 07:49 - Allied health notes Allied health notes reviewed: nursing Medications & Allergies - Medications Allergies/Adverse Reactions: Allergies No Known Allergies Allergy (Unverified 04/17/17 13:03) Home Medications: Home Medications Medication Instructions Recorded Confirmed Last Taken Type ARIPiprazole 5 mg PO QDAY #30 tablet 02/27/19 03/01/19 Unknown Rx Pantoprazole [Protonix TAB] 40 mg PO QDAY #30 tablet 02/27/19 03/01/19 Unknown Rx amLODIPine 10 mg PO QDAY #30 tablet 02/27/19 03/01/19 Unknown Rx hydrALAZINE [Apresoline TAB] 50 mg PO TID #90 tab 02/27/19 03/01/19 Unknown Rx Active Medications: Generic Name Dose Route Start Last Admin Trade Name Freq PRN Reason Stop Dose Admin Acetaminophen 650 mg 03/01/19 22:17 Tylenol PO Q4H PRN Pain MILD(1-3)/Fever >100.5/QUAN Aripiprazole 5 mg 03/02/19 10:00 03/27/19 09:19 Aripiprazole PO 5 mg QDAY ENOC Administration Atenolol 25 mg 03/24/19 10:00 03/27/19 09:20 Tenormin PO 25 mg QDAY ENOC Administration Enoxaparin Sodium 30 mg 03/02/19 10:00 03/27/19 09:19 Enoxaparin SUB-Q 30 mg QDAY ENOC Administration Epoetin Polo 10,000 unit 03/02/19 08:31 03/25/19 11:33 Procrit IV 10,000 unit LOKESH PRN Administration hemodialysis Heparin Sodium (Porcine) 1,000 unit 03/02/19 08:31 03/15/19 10:28 Heparin 10,000 Units/10 Ml IV 1,000 unit LOKESH PRN Administration hemodialysis Heparin Sodium (Porcine) 5,000 unit 03/02/19 08:31 03/15/19 14:21 Heparin IV 5,000 unit LOKESH PRN Administration hemodialysis Sodium Chloride 100 mls @ 999 mls/hr 03/24/19 15:49 Nacl 0.9% IV LOKESH PRN Hypotension Ondansetron HCl 4 mg 03/01/19 22:17 Zofran IV Q8H PRN Nausea And Vomiting Pantoprazole Sodium 40 mg 03/02/19 10:00 03/27/19 09:19 Protonix PO 40 mg QDAY EONC Administration Sodium Chloride 10 ml 03/02/19 10:00 03/27/19 22:46 Sodium Chloride Flush Syringe 10 Ml IV 10 ml BID ENOC Administration
[2019-03-28] MEDS: atenoloL 25 MG TAB PO SCH (09:35)
[2019-03-28] MEDS: ENOXAPARIN 30 MG/0.3 ML INJ SUB-Q SCH (09:35)
[2019-03-28] MEDS: PANTOPRAZOLE 40 MG TAB PO SCH (09:35)
[2019-03-28] MEDS: ARIPiprazole 5 MG TAB PO SCH (09:35)
[2019-03-28] MEDS ORDERED: SODIUM CHLORIDE*PRIMING MACHINE ONLY FOR DIALYSIS MC ONE (20:28)
--- NOTE | 2019-03-28 22:03 | Progress Note ---
Assessment and Plan Assessment and plan: Patient is 58-year-old man history of hypertension, schizophrenia, bipolar, subarachnoid hemorrhage, status post frontal craniotomy with aneurysmal clip, end-stage renal disease on dialysis was sent from [facility] because he did not have dialysis since he was discharged on Wednesday. He was discharged on Wednesday after prolonged stay. Was reported that he was denied by [facility] dialysis.he has no complaints, very poor historian. Patient is able to speak but often choses not to He previously was ambulatory but admitted last time with left sided weakness Patient stay was prolonged due to placement issues He remained clinically stable, was treated for seizures and placed on keppra, baclofen discontinued Bp meds were adjusted due hypotension He was discharged after a dialysis place was established but returns because the dialysis centers medical geneticist declined to now accept him Hydralazine stopped MIKEL on CKD 4 - vasomotor nephropathy versus progression of underlying chronic medical disease -Nephrology consulted -Avoid nephrotoxic agents -Renally dose all meds -Nephrology initiated hemdialysis on 12/6 H/O schizophrenia and bipolar - Abilify 5 mg PO daily, psych following -Hx Hypertension -BP uncontrolled. Continue to adjust medications as needed Hx Right subarachnoid hemorrhage, status post right frontal craniotomy Hx aneurysm, status post clipping -Continue supportive care -Neurology recommended outpatient follow Tobacco abuse -Current every day smoker -Counseled for cessation -Nicotine patch when necessary Moderate Protein Calorie Malnutrition Continue to encourage PO intake Thrombocytopenia. - cont to Monitor dvt/gi prophy Discharge once dialysis center obtained merchandise flow manager is now arranging for placement at [facility]. History Interval history: Patient was seen and examined. Follow-up on current diagnosis of ESRD. Overnight uneventful as no events directly reported to me. Patient denies any chest pain, shortness breath, nausea/vomiting or severe headaches. Imaging, nursing note, chart, labs and old chart reviewed. Going for HD today Hospitalist Physical - Physical exam Narrative exam: Gen: thin frail NAD, Awake, Alert, Orientated x 2 HEENT: old right skull deformity, EOMI, PERRL, OP Clear Neck: supple, no adenopathy, no thyromegaly, no JVD CVS/Heart: RRR, normal S1S2, pulses present bilaterally Chest/Lungs: CTA B, Symmetrical chest expansion, good air entry bilaterally GI/Abdomen: soft, NTND, good bowel sounds, no guarding or rebound /Bladder: no suprapubic tenderness, no CVA or paraspinal tenderness Extermity/Skin: no c/c/e, no obvious rash MSK: FROM x 4 Neuro: CN 2-12 grossly intact, no new focal deficits Psych: calm - Constitutional Vitals: Temp Pulse Resp BP Pulse Ox 99.1 F 82 16 133/87 99 03/28/19 18:46 03/28/19 18:46 03/28/19 18:46 03/28/19 18:46 03/28/19 11:38 Results - Labs CBC & Chem 7: 03/27/19 08:42 03/27/19 08:42 Labs: Laboratory Last Values WBC 8.8 K/mm3 (4.5-11.0) 03/27/19 08:42 RBC 4.11 M/mm3 (3.65-5.03) 03/27/19 08:42 Hgb 11.1 gm/dl (11.8-15.2) L 03/27/19 08:42 Hct 35.7 % (35.5-45.6) 03/27/19 08:42 MCV 87 fl (84-94) 03/27/19 08:42 MCH 27 pg (28-32) L 03/27/19 08:42 MCHC 31 % (32-34) L 03/27/19 08:42 RDW 14.6 % (13.2-15.2) 03/27/19 08:42 Plt Count 301 K/mm3 (140-440) 03/27/19 08:42 Lymph % (Auto) 19.0 % (13.4-35.0) 03/08/19 07:49 [place] % (Auto) 10.6 % (0.0-7.3) H 03/08/19 07:49 Eos % (Auto) 9.1 % (0.0-4.3) H 03/08/19 07:49 Baso % (Auto) 0.6 % (0.0-1.8) 03/08/19 07:49 Lymph # 1.3 K/mm3 (1.2-5.4) 03/08/19 07:49 [place]cock # 0.7 K/mm3 (0.0-0.8) 03/08/19 07:49 Eos # 0.6 K/mm3 (0.0-0.4) H 03/08/19 07:49 Baso # 0.0 K/mm3 (0.0-0.1) 03/08/19 07:49 Seg Neutrophils % 60.7 % (40.0-70.0) 03/08/19 07:49 Seg Neutrophils # 4.1 K/mm3 (1.8-7.7) 03/08/19 07:49 Sodium 140 mmol/L (137-145) 03/27/19 08:42 Potassium 4.1 mmol/L (3.6-5.0) 03/27/19 08:42 Chloride 95.7 mmol/L (98-107) L 03/27/19 08:42 Carbon Dioxide 19 mmol/L (22-30) L 03/27/19 08:42 Anion Gap 29 mmol/L 03/27/19 08:42 BUN 92 mg/dL (9-20) H 03/27/19 08:42 Creatinine 11.1 mg/dL (0.8-1.5) H 03/27/19 08:42 Estimated GFR 6 ml/min 03/27/19 08:42 BUN/Creatinine Ratio 8 % 03/27/19 08:42 Glucose 130 mg/dL (75-100) H 03/27/19 08:42 POC Glucose 132 (70-105) H 03/25/19 15:59 Calcium 9.2 mg/dL (8.4-10.2) 03/27/19 08:42 Phosphorus 9.60 mg/dL (2.5-4.5) H 03/27/19 08:42 Magnesium 2.00 mg/dL (1.7-2.3) 03/08/19 07:49 Total Bilirubin 0.30 mg/dL (0.1-1.2) 03/08/19 07:49 AST 14 units/L (5-40) 03/08/19 07:49 ALT 10 units/L (7-56) 03/08/19 07:49 Alkaline Phosphatase 59 units/L (35-129) 03/08/19 07:49 Total Protein 7.1 g/dL (6.3-8.2) 03/08/19 07:49 Albumin 3.2 g/dL (3.9-5) L 03/08/19 07:49 Albumin/Globulin Ratio 0.8 % 03/08/19 07:49 PTH Intact 272.6 pg/mL (15-65) H 03/27/19 08:42 Hepatitis A IgM Ab Non-reactive (NonReactive) 03/22/19 11:20 Hep Bs Antigen Non-reactive (Negative) 03/22/19 11:20 Hep B Core IgM Ab Non-reactive (NonReactive) 03/22/19 11:20 Hepatitis C Antibody Non-reactive (NonReactive) 03/22/19 11:20 Active Medications - Current Medications Current Medications: Generic Name Dose Route Start Last Admin Trade Name Freq PRN Reason Stop Dose Admin Acetaminophen 650 mg 03/01/19 22:17 Tylenol PO Q4H PRN Pain MILD(1-3)/Fever >100.5/QUAN Aripiprazole 5 mg 03/02/19 10:00 03/28/19 09:35 Aripiprazole PO 5 mg QDAY ENOC Administration Atenolol 25 mg 03/24/19 10:00 03/28/19 09:35 Tenormin PO 25 mg QDAY ENOC Administration Enoxaparin Sodium 30 mg 03/02/19 10:00 03/28/19 09:35 Enoxaparin SUB-Q 30 mg QDAY ENOC Administration Epoetin Polo 10,000 unit 03/02/19 08:31 03/25/19 11:33 Procrit IV 10,000 unit LOKESH PRN Administration hemodialysis Heparin Sodium (Porcine) 1,000 unit 03/02/19 08:31 03/15/19 10:28 Heparin 10,000 Units/10 Ml IV 1,000 unit LOKESH PRN Administration hemodialysis Heparin Sodium (Porcine) 5,000 unit 03/02/19 08:31 03/15/19 14:21 Heparin IV 5,000 unit LOKESH PRN Administration hemodialysis Sodium Chloride 100 mls @ 999 mls/hr 03/24/19 15:49 Nacl 0.9% IV LOKESH PRN Hypotension Ondansetron HCl 4 mg 03/01/19 22:17 Zofran IV Q8H PRN Nausea And Vomiting Pantoprazole Sodium 40 mg 03/02/19 10:00 03/28/19 09:35 Protonix PO 40 mg QDAY ENOC Administration Sodium Chloride 10 ml 03/02/19 10:00 03/28/19 09:36 Sodium Chloride Flush Syringe 10 Ml IV 10 ml BID ENOC Administration Nutrition/Malnutrition Assess - Dietary Evaluation Nutrition/Malnutrition Findings: Nutrition Notes Start: 03/02/19 09:43 Freq: Status: Active Protocol: Document 03/27/19 13:14 LM (Rec: 03/27/19 13:20 LM [email or web address]) Nutrition Notes Initial or Follow up Reassessment Current Diagnosis CKD (stage V CKD),Hypertension Other Pertinent Diagnosis hematochezia Current Diet renal diet with Nepro BID Labs/Tests BUN 92 Cr 11.1 BG 130 Pertinent Medications Reviewed Height 5 ft 6 in Weight 54.1 kg [place] Body Weight (kg) 64.54 BMI 19.2 Subjective/Other Information Pt eating about 75% of breakfast this AM, noticed 2 Nepros unopened. Percent of energy/protein needs met: 100%/59% Burn Absent Trauma Absent GI Symptoms None Food Allergy No Current % PO Good (75-100%) Minimum of two criteria Yes Interpretation of Weight Loss (severe) >2% in 1 week Muscle Mass Mild Depletion (non-severe) #1 Nutrition Diagnosis Malnutrition Diagnosis Progress(for reassessment Continues documentation) Is patient on ventilator? No Is Patient Ambulatory and/or Out of Bed No REE-([facility]-confined to bed) 1563.516 Calculation Used for Recommendations [facility] Additional Notes Protein needs: >67 g (>1.2g/ kg) Fluid needs: 1000 - 1500 mL Nutrition Intervention Change Diet Order: continue renal diet Add Supplement/Snack (indicate name/kcal Nepro BID /protein ) Provides kCal: 850 Provides Protein (gm) 38 Goal #1 continue to meet at least 80% of dietary needs Anticipated Discharge Needs: Renal diet, w/ Nepro Supplement BID Follow-Up By: 03/30/19 Additional Comments F/U for PO/ONS intakes
--- NOTE | 2019-03-29 10:03 | Progress Note ---
Assessment and Plan - Patient Problems (1) End-stage renal disease needing dialysis Current Visit: Yes Status: Chronic Plan to address problem: Continue on TTS inpatient HD schedule. Awaiting outpatient HD placement. (2) Hypertension associated with stage 5 chronic kidney disease due to type 2 diabetes mellitus Current Visit: Yes Status: Chronic Plan to address problem: Monitor blood pressures with current regimen, (3) Anemia in end-stage renal disease Current Visit: Yes Status: Chronic Plan to address problem: H/H at goal, no acute needs for TWAN therapy. (4) Schizoaffective disorder Current Visit: Yes Status: Chronic Plan to address problem: Management per psychiatry recommendations. Subjective Date of service: 03/29/19 Principal diagnosis: ESRD, schizophrenia, malnutrition, was of the opinion Interval history: No acute issues. Objective - Vital Signs Vital signs: Vital Signs - 12hr 03/28/19 03/29/19 22:05 05:48 Temperature 98.8 F 98.8 F Pulse Rate 79 79 Respiratory 16 16 Rate Blood Pressure 125/88 107/84 O2 Sat by Pulse 100 98 Oximetry - General Appearance General appearance: well-nourished, appears stated age EENT: ATNC, PERRL Neck: no JVD, no thyromegaly Respiratory: Present: Clear to Ascultation Cardiology: regular, S1S2 Gastrointestinal: normal Integumentary: no rash, warm and dry Neurologic: confused, disoriented Musculoskeletal: deferred Psychiatric: cooperative - Lab 03/27/19 08:42 03/27/19 08:42 Most recent lab results Calcium 9.2 mg/dL (8.4-10.2) 03/27/19 08:42 Phosphorus 9.60 mg/dL (2.5-4.5) H 03/27/19 08:42 Magnesium 2.00 mg/dL (1.7-2.3) 03/08/19 07:49 - Allied health notes Allied health notes reviewed: nursing Medications & Allergies - Medications Allergies/Adverse Reactions: Allergies No Known Allergies Allergy (Unverified 04/17/17 13:03) Home Medications: Home Medications Medication Instructions Recorded Confirmed Last Taken Type ARIPiprazole 5 mg PO QDAY #30 tablet 02/27/19 03/01/19 Unknown Rx Pantoprazole [Protonix TAB] 40 mg PO QDAY #30 tablet 12/16/19 12/18/19 Unknown Rx amLODIPine 10 mg PO QDAY #30 tablet 02/27/19 03/01/19 Unknown Rx hydrALAZINE [Apresoline TAB] 50 mg PO TID #90 tab 02/27/19 03/01/19 Unknown Rx Active Medications: Generic Name Dose Route Start Last Admin Trade Name Freq PRN Reason Stop Dose Admin Acetaminophen 650 mg 03/01/19 22:17 Tylenol PO Q4H PRN Pain MILD(1-3)/Fever >100.5/QUAN Aripiprazole 5 mg 03/02/19 10:00 03/28/19 09:35 Aripiprazole PO 5 mg QDAY ENOC Administration Atenolol 25 mg 03/24/19 10:00 03/28/19 09:35 Tenormin PO 25 mg QDAY ENOC Administration Enoxaparin Sodium 30 mg 03/02/19 10:00 03/28/19 09:35 Enoxaparin SUB-Q 30 mg QDAY ENOC Administration Epoetin Polo 10,000 unit 03/02/19 08:31 03/25/19 11:33 Procrit IV 10,000 unit LOKESH PRN Administration hemodialysis Heparin Sodium (Porcine) 1,000 unit 03/02/19 08:31 03/15/19 10:28 Heparin 10,000 Units/10 Ml IV 1,000 unit LOKESH PRN Administration hemodialysis Heparin Sodium (Porcine) 5,000 unit 03/02/19 08:31 03/15/19 14:21 Heparin IV 5,000 unit LOKESH PRN Administration hemodialysis Sodium Chloride 100 mls @ 999 mls/hr 03/24/19 15:49 Nacl 0.9% IV LOKESH PRN Hypotension Ondansetron HCl 4 mg 03/01/19 22:17 Zofran IV Q8H PRN Nausea And Vomiting Pantoprazole Sodium 40 mg 03/02/19 10:00 03/28/19 09:35 Protonix PO 40 mg QDAY ENOC Administration Sodium Chloride 10 ml 03/02/19 10:00 03/29/19 00:31 Sodium Chloride Flush Syringe 10 Ml IV 10 ml BID ENOC Administration
[2019-03-29] MEDS: atenoloL 25 MG TAB PO SCH (12:40)
[2019-03-29] MEDS: ENOXAPARIN 30 MG/0.3 ML INJ SUB-Q SCH (12:40)
[2019-03-29] MEDS: PANTOPRAZOLE 40 MG TAB PO SCH (12:40)
[2019-03-29] MEDS: ARIPiprazole 5 MG TAB PO SCH (12:40)
--- NOTE | 2019-03-29 17:12 | Progress Note ---
Assessment and Plan Assessment and plan: Patient is 58-year-old man history of hypertension, schizophrenia, bipolar, subarachnoid hemorrhage, status post frontal craniotomy with aneurysmal clip, end-stage renal disease on dialysis was sent from [facility] because he did not have dialysis since he was discharged on Wednesday. He was discharged on Wednesday after prolonged stay. Was reported that he was denied by [facility] dialysis.he has no complaints, very poor historian. Patient is able to speak but often choses not to He previously was ambulatory but admitted last time with left sided weakness Patient stay was prolonged due to placement issues He remained clinically stable, was treated for seizures and placed on keppra, baclofen discontinued Bp meds were adjusted due hypotension He was discharged after a dialysis place was established but returns because the dialysis centers ophthalmic medical technologist declined to now accept him Hydralazine stopped MIKEL on CKD 4 - vasomotor nephropathy versus progression of underlying chronic medical disease -Nephrology consulted -Avoid nephrotoxic agents -Renally dose all meds -Nephrology initiated hemdialysis on 12/6 H/O schizophrenia and bipolar - Abilify 5 mg PO daily, psych following -Hx Hypertension -BP uncontrolled. Continue to adjust medications as needed Hx Right subarachnoid hemorrhage, status post right frontal craniotomy Hx aneurysm, status post clipping -Continue supportive care -Neurology recommended outpatient follow Tobacco abuse -Current every day smoker -Counseled for cessation -Nicotine patch when necessary Moderate Protein Calorie Malnutrition Continue to encourage PO intake Thrombocytopenia. - cont to Monitor dvt/gi prophy Discharge once dialysis center obtained port traffic manager is now arranging for placement at [facility]. History Interval history: Patient was seen and examined. Follow-up on current diagnosis of ESRD. Overnight uneventful as no events directly reported to me. Patient denies any chest pain, shortness breath, nausea/vomiting or severe headaches. Imaging, nursing note, chart, labs and old chart reviewed. Going for HD today Hospitalist Physical - Physical exam Narrative exam: Gen: thin frail NAD, Awake, Alert, Orientated x 2 HEENT: old right skull deformity, EOMI, PERRL, OP Clear Neck: supple, no adenopathy, no thyromegaly, no JVD CVS/Heart: RRR, normal S1S2, pulses present bilaterally Chest/Lungs: CTA B, Symmetrical chest expansion, good air entry bilaterally GI/Abdomen: soft, NTND, good bowel sounds, no guarding or rebound /Bladder: no suprapubic tenderness, no CVA or paraspinal tenderness Extermity/Skin: no c/c/e, no obvious rash MSK: FROM x 4 Neuro: CN 2-12 grossly intact, no new focal deficits Psych: calm - Constitutional Vitals: Temp Pulse Resp BP Pulse Ox 98.0 F 81 14 109/81 99 03/29/19 12:00 03/29/19 12:00 03/29/19 12:00 03/29/19 12:00 03/29/19 12:00 Results - Labs CBC & Chem 7: 03/27/19 08:42 03/27/19 08:42 Labs: Laboratory Last Values WBC 8.8 K/mm3 (4.5-11.0) 03/27/19 08:42 RBC 4.11 M/mm3 (3.65-5.03) 03/27/19 08:42 Hgb 11.1 gm/dl (11.8-15.2) L 03/27/19 08:42 Hct 35.7 % (35.5-45.6) 03/27/19 08:42 MCV 87 fl (84-94) 03/27/19 08:42 MCH 27 pg (28-32) L 03/27/19 08:42 MCHC 31 % (32-34) L 03/27/19 08:42 RDW 14.6 % (13.2-15.2) 03/27/19 08:42 Plt Count 301 K/mm3 (140-440) 03/27/19 08:42 Lymph % (Auto) 19.0 % (13.4-35.0) 03/08/19 07:49 Rush % (Auto) 10.6 % (0.0-7.3) H 03/08/19 07:49 Eos % (Auto) 9.1 % (0.0-4.3) H 03/08/19 07:49 Baso % (Auto) 0.6 % (0.0-1.8) 03/08/19 07:49 Lymph # 1.3 K/mm3 (1.2-5.4) 03/08/19 07:49 Rush # 0.7 K/mm3 (0.0-0.8) 03/08/19 07:49 Eos # 0.6 K/mm3 (0.0-0.4) H 03/08/19 07:49 Baso # 0.0 K/mm3 (0.0-0.1) 03/08/19 07:49 Seg Neutrophils % 60.7 % (40.0-70.0) 03/08/19 07:49 Seg Neutrophils # 4.1 K/mm3 (1.8-7.7) 03/08/19 07:49 Sodium 140 mmol/L (137-145) 03/27/19 08:42 Potassium 4.1 mmol/L (3.6-5.0) 03/27/19 08:42 Chloride 95.7 mmol/L (98-107) L 03/27/19 08:42 Carbon Dioxide 19 mmol/L (22-30) L 03/27/19 08:42 Anion Gap 29 mmol/L 03/27/19 08:42 BUN 92 mg/dL (9-20) H 03/27/19 08:42 Creatinine 11.1 mg/dL (0.8-1.5) H 03/27/19 08:42 Estimated GFR 6 ml/min 03/27/19 08:42 BUN/Creatinine Ratio 8 % 03/27/19 08:42 Glucose 130 mg/dL (75-100) H 03/27/19 08:42 POC Glucose 132 (70-105) H 03/25/19 15:59 Calcium 9.2 mg/dL (8.4-10.2) 03/27/19 08:42 Phosphorus 9.60 mg/dL (2.5-4.5) H 03/27/19 08:42 Magnesium 2.00 mg/dL (1.7-2.3) 03/08/19 07:49 Total Bilirubin 0.30 mg/dL (0.1-1.2) 03/08/19 07:49 AST 14 units/L (5-40) 03/08/19 07:49 ALT 10 units/L (7-56) 03/08/19 07:49 Alkaline Phosphatase 59 units/L (35-129) 03/08/19 07:49 Total Protein 7.1 g/dL (6.3-8.2) 03/08/19 07:49 Albumin 3.2 g/dL (3.9-5) L 03/08/19 07:49 Albumin/Globulin Ratio 0.8 % 03/08/19 07:49 PTH Intact 272.6 pg/mL (15-65) H 03/27/19 08:42 Hepatitis A IgM Ab Non-reactive (NonReactive) 03/22/19 11:20 Hep Bs Antigen Non-reactive (Negative) 03/22/19 11:20 Hep B Core IgM Ab Non-reactive (NonReactive) 03/22/19 11:20 Hepatitis C Antibody Non-reactive (NonReactive) 03/22/19 11:20 Active Medications - Current Medications Current Medications: Generic Name Dose Route Start Last Admin Trade Name Freq PRN Reason Stop Dose Admin Acetaminophen 650 mg 03/01/19 22:17 Tylenol PO Q4H PRN Pain MILD(1-3)/Fever >100.5/QUAN Aripiprazole 5 mg 03/02/19 10:00 03/29/19 12:40 Aripiprazole PO 5 mg QDAY ENOC Administration Atenolol 25 mg 03/24/19 10:00 03/29/19 12:40 Tenormin PO Not Given QDAY ENOC Enoxaparin Sodium 30 mg 03/02/19 10:00 03/29/19 12:40 Enoxaparin SUB-Q 30 mg QDAY [facility] Administration Epoetin Polo 10,000 unit 03/02/19 08:31 03/25/19 11:33 Procrit IV 10,000 unit LOKESH PRN Administration hemodialysis Heparin Sodium (Porcine) 1,000 unit 03/02/19 08:31 03/15/19 10:28 Heparin 10,000 Units/10 Ml IV 1,000 unit LOKESH PRN Administration hemodialysis Heparin Sodium (Porcine) 5,000 unit 03/02/19 08:31 03/15/19 14:21 Heparin IV 5,000 unit LOKESH PRN Administration hemodialysis Sodium Chloride 100 mls @ 999 mls/hr 03/24/19 15:49 Nacl 0.9% IV LOKESH PRN Hypotension Ondansetron HCl 4 mg 03/01/19 22:17 Zofran IV Q8H PRN Nausea And Vomiting Pantoprazole Sodium 40 mg 03/02/19 10:00 03/29/19 12:40 Protonix PO 40 mg QDAY [facility] Administration Sodium Chloride 10 ml 03/02/19 10:00 03/29/19 12:41 Sodium Chloride Flush Syringe 10 Ml IV 10 ml BID ENOC Administration Nutrition/Malnutrition Assess - Dietary Evaluation Nutrition/Malnutrition Findings: Nutrition Notes Start: 03/02/19 09:43 Freq: Status: Active Protocol: Document 03/27/19 13:14 LM (Rec: 03/27/19 13:20 LM [email or web address]) Nutrition Notes Initial or Follow up Reassessment Current Diagnosis CKD (stage V CKD),Hypertension Other Pertinent Diagnosis hematochezia Current Diet renal diet with Nepro BID Labs/Tests BUN 92 Cr 11.1 BG 130 Pertinent Medications Reviewed Height 5 ft 6 in Weight 54.1 kg [place] Body Weight (kg) 64.54 BMI 19.2 Subjective/Other Information Pt eating about 75% of breakfast this AM, noticed 2 Nepros unopened. Percent of energy/protein needs met: 100%/59% Burn Absent Trauma Absent GI Symptoms None Food Allergy No Current % PO Good (75-100%) Minimum of two criteria Yes Interpretation of Weight Loss (severe) >2% in 1 week Muscle Mass Mild Depletion (non-severe) #1 Nutrition Diagnosis Malnutrition Diagnosis Progress(for reassessment Continues documentation) Is patient on ventilator? No Is Patient Ambulatory and/or Out of Bed No REE-([facility]-confined to bed) 1563.516 Calculation Used for Recommendations [facility] Additional Notes Protein needs: >67 g (>1.2g/ kg) Fluid needs: 1000 - 1500 mL Nutrition Intervention Change Diet Order: continue renal diet Add Supplement/Snack (indicate name/kcal Nepro BID /protein ) Provides kCal: 850 Provides Protein (gm) 38 Goal #1 continue to meet at least 80% of dietary needs Anticipated Discharge Needs: Renal diet, w/ Nepro Supplement BID Follow-Up By: 03/30/19 Additional Comments F/U for PO/ONS intakes
[2019-03-30] MEDS: EPOETIN ALFA 10,000 UNIT/1 ML INJ IV PRN (11:24)
[2019-03-30] MEDS ORDERED: SODIUM CHLORIDE*PRIMING MACHINE ONLY FOR DIALYSIS MC ONE (11:24)
--- NOTE | 2019-03-30 13:40 | Progress Note ---
Assessment and Plan - Patient Problems (1) End-stage renal disease needing dialysis Current Visit: Yes Status: Chronic Plan to address problem: Continue on TTS inpatient HD schedule. Awaiting outpatient HD placement. (2) Hypertension associated with stage 5 chronic kidney disease due to type 2 diabetes mellitus Current Visit: Yes Status: Chronic Plan to address problem: Would monitor off blood pressure medicine at this time. (3) Anemia in end-stage renal disease Current Visit: Yes Status: Chronic Plan to address problem: H/H at goal, no acute needs for TWAN therapy. (4) Schizoaffective disorder Current Visit: Yes Status: Chronic Plan to address problem: Management per psychiatry recommendations. Subjective Date of service: 03/30/19 Principal diagnosis: ESRD, schizophrenia, malnutrition, was of the opinion Interval history: Seen at hemodialysis afternoon. Issues with low blood pressures that have necessitated us to decrease ultrafiltration to 500 mL. Did not require any extra IV fluids. Complains of this time. Objective - Vital Signs Vital signs: Vital Signs - 12hr 03/30/19 03/30/19 03/30/19 04:16 08:50 08:51 Temperature 97.6 F Pulse Rate 75 Respiratory 18 20 Rate Respiratory 20 Rate [Bilateral Lower] Blood Pressure 132/96 O2 Sat by Pulse 99 Oximetry 03/30/19 03/30/19 03/30/19 09:30 09:50 10:00 Temperature 97.9 F Pulse Rate 65 65 68 Respiratory 16 Rate Respiratory Rate [Bilateral Lower] Blood Pressure 103/65 103/65 99/64 O2 Sat by Pulse Oximetry 03/30/19 03/30/19 03/30/19 10:15 10:30 10:45 Temperature Pulse Rate 66 66 63 Respiratory Rate Respiratory Rate [Bilateral Lower] Blood Pressure 93/51 100/63 99/61 O2 Sat by Pulse Oximetry 03/30/19 03/30/19 03/30/19 11:00 11:16 11:30 Temperature Pulse Rate 64 62 71 Respiratory Rate Respiratory Rate [Bilateral Lower] Blood Pressure 104/73 105/62 114/72 O2 Sat by Pulse Oximetry 03/30/19 03/30/19 03/30/19 11:45 12:00 12:15 Temperature Pulse Rate 67 64 65 Respiratory Rate Respiratory Rate [Bilateral Lower] Blood Pressure 101/78 115/69 97/51 O2 Sat by Pulse Oximetry 03/30/19 12:30 Temperature Pulse Rate 64 Respiratory Rate Respiratory Rate [Bilateral Lower] Blood Pressure 96/56 O2 Sat by Pulse Oximetry - General Appearance General appearance: appears stated age, chronically ill EENT: ATNC, PERRL Neck: no JVD, no thyromegaly Respiratory: Present: Clear to Ascultation Cardiology: regular, S1S2 Gastrointestinal: normal, normoactive bowel sounds Integumentary: no rash, warm and dry Neurologic: confused, disoriented Musculoskeletal: deferred Psychiatric: cooperative - Lab 03/27/19 08:42 03/27/19 08:42 Most recent lab results Calcium 9.2 mg/dL (8.4-10.2) 03/27/19 08:42 Phosphorus 9.60 mg/dL (2.5-4.5) H 03/27/19 08:42 Magnesium 2.00 mg/dL (1.7-2.3) 03/08/19 07:49 - Allied health notes Allied health notes reviewed: nursing Medications & Allergies - Medications Allergies/Adverse Reactions: Allergies No Known Allergies Allergy (Unverified 04/17/17 13:03) Home Medications: Home Medications Medication Instructions Recorded Confirmed Last Taken Type ARIPiprazole 5 mg PO QDAY #30 tablet 02/27/19 03/01/19 Unknown Rx Pantoprazole [Protonix TAB] 40 mg PO QDAY #30 tablet 02/27/19 03/01/19 Unknown Rx amLODIPine 10 mg PO QDAY #30 tablet 02/27/19 03/01/19 Unknown Rx hydrALAZINE [Apresoline TAB] 50 mg PO TID #90 tab 02/27/19 03/01/19 Unknown Rx Active Medications: Generic Name Dose Route Start Last Admin Trade Name Freq PRN Reason Stop Dose Admin Acetaminophen 650 mg 03/01/19 22:17 Tylenol PO Q4H PRN Pain MILD(1-3)/Fever >100.5/QUAN Aripiprazole 5 mg 03/02/19 10:00 03/29/19 12:40 Aripiprazole PO 5 mg QDAY ENOC Administration Atenolol 25 mg 03/24/19 10:00 03/29/19 12:40 Tenormin PO Not Given QDAY ENOC Enoxaparin Sodium 30 mg 03/02/19 10:00 03/29/19 12:40 Enoxaparin SUB-Q 30 mg QDAY ENOC Administration Epoetin Polo 10,000 unit 03/02/19 08:31 03/30/19 11:24 Procrit IV 10,000 unit LOKESH PRN Administration hemodialysis Heparin Sodium (Porcine) 1,000 unit 03/02/19 08:31 03/15/19 10:28 Heparin 10,000 Units/10 Ml IV 1,000 unit LOKESH PRN Administration hemodialysis Heparin Sodium (Porcine) 5,000 unit 03/02/19 08:31 03/15/19 14:21 Heparin IV 5,000 unit LOKESH PRN Administration hemodialysis Sodium Chloride 100 mls @ 999 mls/hr 03/24/19 15:49 Nacl 0.9% IV LOKESH PRN Hypotension Ondansetron HCl 4 mg 03/01/19 22:17 Zofran IV Q8H PRN Nausea And Vomiting Pantoprazole Sodium 40 mg 03/02/19 10:00 03/29/19 12:40 Protonix PO 40 mg QDAY ENOC Administration Sodium Chloride 10 ml 03/02/19 10:00 03/29/19 22:29 Sodium Chloride Flush Syringe 10 Ml IV 10 ml BID NEOC Administration
--- NOTE | 2019-03-30 14:08 | Discharge Summary ---
Providers - Providers Date of Admission: 03/07/19 08:44 Date of discharge: 03/30/19 Attending physician: MARIETTA SAHNI 03/01/19 20:31 Consult to Physician [CONS] Stat Comment: Dr. Solis spoke with Dr. Mayers @ 2025 Consulting Provider: JANICE MAYERS Physician Instructions: Reason For Exam: needing dialysis 03/04/19 10:28 Consult to Case Management [CONS] Routine Services Needed at Discharge: Other Notified:: copy left for CM Comment:: arrange hemodialysis at [facility] 03/28/19 16:48 Physical Therapy Evaluation and Treat [CONS] Routine Comment: Reason For Exam: Eval and Treat Primary care physician: PACKAGING TECHNICIAN Hospitalization Condition: Stable Hospital course: Patient is 58-year-old man with a history of hypertension, schizophrenia, bipolar, subarachnoid hemorrhage, status post frontal craniotomy with aneurysmal clip and End-stage renal disease on hemodialysis who was sent from [facility] because he did not have dialysis since he was discharged from here. He was discharged on Wednesday after prolonged stay. It was reported that he was denied by [facility] dialysis. Patient is able to speak but often chooses not to He previously was ambulatory but admitted last time with left sided weakness Patient stay was prolonged due to placement issues He remained clinically stable, was treated for seizures and placed on keppra, baclofen discontinued Bp meds were adjusted due hypotension He was discharged after a dialysis place was established but returns because the dialysis centers medical technologist chemistry declined to accept him Hydralazine stopped Discharge Diagnoses: MIKEL on CKD 4 - vasomotor nephropathy versus progression of underlying chronic medical disease -Nephrology consulted -Avoid nephrotoxic agents -Renally dose all meds -Nephrology initiated hemdialysis on 02/17 H/O schizophrenia and bipolar - Abilify 5 mg PO daily, psych following -Hx Hypertension -BP uncontrolled. Continue to adjust medications as needed Hx Right subarachnoid hemorrhage, status post right frontal craniotomy Hx aneurysm, status post clipping -Continue supportive care -Neurology recommended outpatient follow Tobacco abuse -Current every day smoker -Counseled for cessation -Nicotine patch when necessary Moderate Protein Calorie Malnutrition Continue to encourage PO intake Thrombocytopenia. - cont to Monitor dvt/gi prophy Discharge back to [facility], HD has been setup per Case management Disposition: [id number]/[place]-[id number] SNF [facility] Time spent for discharge: 34 minutes Core Measure Documentation - Palliative Care Palliative Care/ Comfort Measures: Not Applicable - Core Measures Any of the following diagnoses?: none - VTE Discharge Requirements Deep Vein Thrombosis/Pulmonary Embolism Present on Admission: No Has pt received <5 days of overlap therapy or INR<2.0: No Anticoagulant overlap therapy prescribed at discharge: No Contraindication No Overlap Therapy order at DC: Not Indicated Exam - Physical Exam Narrative exam: Gen: thin frail NAD, Awake, Alert, Orientated x 2 HEENT: old right skull deformity, EOMI, PERRL, OP Clear Neck: supple, no adenopathy, no thyromegaly, no JVD CVS/Heart: RRR, normal S1S2, pulses present bilaterally Chest/Lungs: CTA B, Symmetrical chest expansion, good air entry bilaterally GI/Abdomen: soft, NTND, good bowel sounds, no guarding or rebound /Bladder: no suprapubic tenderness, no CVA or paraspinal tenderness Extermity/Skin: no c/c/e, no obvious rash MSK: FROM x 4 Neuro: CN 2-12 grossly intact, no new focal deficits Psych: calm - Constitutional Vitals: Temp Pulse Resp BP Pulse Ox 97.9 F 64 16 96/56 99 03/30/19 09:30 03/30/19 12:30 03/30/19 09:30 03/30/19 12:30 03/30/19 04:16 Plan Activity: up only with assistance, fall precautions, other (no strenous activity) Diet: renal Special Instructions: record daily BP diary Follow up with: JU MERCER MD [Staff Physician] - 7 Days PRIMARY CAREMD [Primary Care Provider] - 7 Days Prescriptions: atenoloL [Tenormin] 25 mg PO QDAY #30 tablet
[2019-03-30] MEDS: ARIPiprazole 5 MG TAB PO SCH (15:30)
[2019-03-30] MEDS: ENOXAPARIN 30 MG/0.3 ML INJ SUB-Q SCH (15:30)
[2019-03-30] MEDS: atenoloL 25 MG TAB PO SCH (15:30)
[2019-03-30] MEDS: PANTOPRAZOLE 40 MG TAB PO SCH (15:33)
[2019-03-30 16:57] VITALS: BP 126/83
== END 2019-03-30 17:30 | DRG 682 ==
LOC: ED 18:28 → 3A 22:18 → OBSVTOIN 03-07 08:44
PROVIDERS: ADMIT Internal Medicine; ATTEND Internal Medicine
PROC: 5A1D70Z Performance of Urinary Filtration, Intermittent, Less than 6 Hours Per Day (ICD-10-PCS; 2019-03-02)
PROC: 5A1D70Z Performance of Urinary Filtration, Intermittent, Less than 6 Hours Per Day (ICD-10-PCS; principal; 2019-03-04)
PROC: 5A1D70Z Performance of Urinary Filtration, Intermittent, Less than 6 Hours Per Day (ICD-10-PCS; 2019-03-07)
PROC: 5A1D70Z Performance of Urinary Filtration, Intermittent, Less than 6 Hours Per Day (ICD-10-PCS; 2019-03-09)
PROC: 5A1D70Z Performance of Urinary Filtration, Intermittent, Less than 6 Hours Per Day (ICD-10-PCS; 2019-03-10)
PROC: 5A1D70Z Performance of Urinary Filtration, Intermittent, Less than 6 Hours Per Day (ICD-10-PCS; 2019-03-13)
PROC: 5A1D70Z Performance of Urinary Filtration, Intermittent, Less than 6 Hours Per Day (ICD-10-PCS; 2019-03-15)
PROC: 5A1D70Z Performance of Urinary Filtration, Intermittent, Less than 6 Hours Per Day (ICD-10-PCS; 2019-03-17)
PROC: 5A1D70Z Performance of Urinary Filtration, Intermittent, Less than 6 Hours Per Day (ICD-10-PCS; 2019-03-20)
PROC: 5A1D70Z Performance of Urinary Filtration, Intermittent, Less than 6 Hours Per Day (ICD-10-PCS; 2019-03-22)
PROC: 5A1D70Z Performance of Urinary Filtration, Intermittent, Less than 6 Hours Per Day (ICD-10-PCS; 2019-03-25)
PROC: 5A1D70Z Performance of Urinary Filtration, Intermittent, Less than 6 Hours Per Day (ICD-10-PCS; 2019-03-28)
PROC: 5A1D70Z Performance of Urinary Filtration, Intermittent, Less than 6 Hours Per Day (ICD-10-PCS; 2019-03-30)
DX: I12.0 Hypertensive chronic kidney disease with stage 5 chronic kidney disease or end stage renal disease (principal); N17.0 Acute kidney failure with tubular necrosis; E43 Unspecified severe protein-calorie malnutrition; N18.6 End stage renal disease; Z68.1 Body mass index [BMI] 19.9 or less, adult; G81.94 Hemiplegia, unspecified affecting left nondominant side; F25.9 Schizoaffective disorder, unspecified; F17.200 Nicotine dependence, unspecified, uncomplicated; D63.1 Anemia in chronic kidney disease; D69.6 Thrombocytopenia, unspecified; R00.0 Tachycardia, unspecified; E11.22 Type 2 diabetes mellitus with diabetic chronic kidney disease; Z99.2 Dependence on renal dialysis; Z71.6 Tobacco abuse counseling; Z79.899 Other long term (current) drug therapy; Z82.49 Family history of ischemic heart disease and other diseases of the circulatory system
CPT/HCPCS: 36415; 71045; 80048; 80053; 80074; 82962; 83735; 83970; 84100; 85025; 85027; 93005; 93010; 99406; G0378; J0885; J1644; J1650; J7030